=== PATIENT | female | born 1965 | race Caucasian/White ===

== ENCOUNTER 2016-07-27 11:33 | Emergency (ER) | payer OTHER ==
--- NOTE | 2016-07-27 13:58 | UC ---
HPI Febrile Illness - HPI Summary HPI Summary: Patient presents to the with CC of fevers, sweats and chills x 1 week. She is a diabetic and is refusing to use her insulin. She states 2 days ago she started using it again, but has not improved with sweats and chills. She is morbidly obese, has significant comorbidities and does not have close follow up outpatient d/t non-compliance. She states her toe had been bothering her, but she is unable to look. She has not taken her sock off in "quite some time." She notes to pain and feeling of swelling, but endorses numbness in the toe. Denies urinary symptoms, back pain or other abdominal complaints. Febrile at 100.0 on arrival. Tachy at 103, upon re-check was 98. - History of Current Complaint Chief Complaint: UCGeneralIllness Time Seen by Provider: 07/27/16 13:24 Hx Obtained From: Patient Onset/Duration: Started Weeks Ago Timing: Constant Temperature: 100.0 F Initial Severity: Moderate Current Severity: Moderate Pain Intensity: 4 Pain Scale Used: 0-10 Numeric Aggravating Factors: Nothing Alleviating Factors: Nothing Associated Signs and Symptoms: Arthralgia, Diaphoresis, Dizziness, Joint Pain, Night Sweats, Red Streaks, Weakness - Risk Factors Pseudomonas Risk Factors: Negative Serious Bacterial Infection Risk Factors: Negative - Additional Pertinent History Primary Care Physician: [id number] - Allergy/Home Medications Allergies/Adverse Reactions: Allergies Allergy/AdvReac Type Severity Reaction Status Date / Time No Known Allergies Allergy Verified 07/27/16 11:51 PMH/Surg Hx/FS Hx/Imm Hx Previously Healthy: Yes Endocrine/Hematology History: Reports: Hx Diabetes, Hx Anemia - current acute anemia Denies: Hx Thyroid Disease Cardiovascular History: Denies: Hx Hypertension, Hx Pacemaker/ICD Respiratory History: Denies: Hx Asthma, Hx Chronic Obstructive Pulmonary Disease (COPD) GI History: Reports: Hx Hiatal Hernia - PT HAS HAD SBO IN THE PAST, Hx Obstructive Bowel, Other GI Disorders - Gall bladder removal, hernia repair Denies: Hx Cirrhosis, Hx Crohn's Disease, Hx Gastroesophageal Reflux Disease , Hx Ulcer History: Denies: Hx Dialysis, Hx Renal Disease Musculoskeletal History: Reports: Hx Back Problems Denies: Hx Arthritis, Hx Osteoporosis Sensory History: Reports: Hx Contacts or Glasses - glasses Denies: Hx Cataracts, Hx Glaucoma, Hx Hearing Aid Opthamlomology History: Reports: Hx Contacts or Glasses - glasses Denies: Hx Cataracts, Hx Glaucoma Neurological History: Comment Only: Other Neuro Impairments/Disorders - occassional tingling to bottom of feet Psychiatric History: Denies: Hx Panic Disorder - Surgical History Surgery Procedure, Year, and Place: Gall bladder 1996, [facility] [place]. Hernia repair ~2008 , [facility] [place] Right rotator cuff repair 2010, [facility] [place]. Fibroid removal, 2012, [facility] [place]. MAR 2014 HYSTERECTOMY Hx Anesthesia Reactions: No - Immunization History Hx Pertussis Vaccination: No Immunizations Up to Date: Unable to Obtain/Confirm Infectious Disease History: No Infectious Disease History: Denies: Hx Clostridium Difficile, Hx Hepatitis, Hx Human Immunodeficiency Virus (HIV), Hx of Known/Suspected MRSA, Hx Shingles, Hx Tuberculosis, Traveled Outside the [place] in Last 30 Days - Family History Known Family History: Positive: Unknown - Social History Occupation: Unemployed Lives: With Family Alcohol Use: Rare Hx Substance Use: No Substance Use Type: Reports: None Substance Use Comment - Amount & Last Used: 3 pepsi a day Hx Tobacco Use: No Smoking Status (MU): Light Every Day Tobacco Smoker Type: Cigarettes Amount Used/How Often: 2-3 CIGARETTES/DAY Length of Time of Smoking/Using Tobacco: SMOKED 30+ YEARS; Have You Smoked in the Last Year: Yes Review of Systems Constitutional: Fever, Chills, Fatigue Skin: Other - necrosing great toe ENT: Negative Respiratory: Negative Cardiovascular: Negative Musculoskeletal: Arthralgia - right great toe pain Neurological: Negative Psychological: Negative All Other Systems Reviewed And Are Negative: Yes Physical Exam Triage Information Reviewed: Yes Appearance: Ill-Appearing, Obese Vital Signs: Initial Vital Signs Temp 99.9 F 07/27/16 11:44 Pulse 98 07/27/16 11:44 Resp 18 07/27/16 11:44 BP 119/63 07/27/16 11:44 Pulse Ox 94 07/27/16 11:44 Vital Signs Reviewed: Yes Eye Exam: Normal Eyes: Positive: Conjunctiva Clear Neck exam: Normal Neck: Positive: Supple Respiratory: Positive: Chest non-tender, Lungs clear, Normal breath sounds Cardiovascular Exam: Normal Neurological: Positive: Fatigued, Abnormal Muscle Tone Psychological: Positive: Normal Response To Family Skin: Positive: Other - necrosing toe Course/Dx - Course Course Of Treatment: Patient evaluated for possible sepsis. Febrile with sweats and chills, tachy at 103 on arrival. Necorsing great toe. BG at 393. Refusing to take her insulin at home. Morbidly obese with significant comorbidities. Called. Ebonie Silva PA-C at 1:50p for report. Will send for further evaluation of toe, possible sepsis and glucose/diabetes control. Possible washout for toe d/t necrosis with erythema. - Febrile Illness Differential Diagnoses: Abscess, Cellulitis, Fever of Unknown Origin, Sepsis - Diagnoses Clinic Provider Diagnoses: Fever Discharge - Discharge Plan Condition: Stable Disposition: TRANS HIGHER LVL OF CARE FAC
[2016-07-27 14:06] VITALS: BP 106/60
== END 2016-07-27 14:29 | disposition short-term general hospital (02) ==
LOC: UCEAST 11:33
DX: R50.9 Fever, unspecified (principal); R00.0 Tachycardia, unspecified; I96 Gangrene, not elsewhere classified; E11.65 Type 2 diabetes mellitus with hyperglycemia; Z91.14 Patient's other noncompliance with medication regimen; F17.210 Nicotine dependence, cigarettes, uncomplicated; E66.01 Morbid (severe) obesity due to excess calories
CPT/HCPCS: 99213; G0463

== ENCOUNTER 2016-07-27 14:44 | Inpatient (IN) | payer OTHER ==
[2016-07-27] MEDS ORDERED: Vancomycin(*) 1,000 MG in NS 0.9% 250 ML* 250 ML IVPB ONE ×2 (15:21→18:30)
[2016-07-27] MEDS ORDERED: NS 0.9% 1000 ML* 1,000 ML IV ONE (15:21)
[2016-07-27 15:49] LABS: Hematocrit 39 % (35-47); Hemoglobin 12.4 g/dl (12.0-16.0); Mean Corpuscular HGB Conc 32 g/dl (31-36); Mean Corpuscular Hemoglobin 26 pg (27-31); Mean Corpuscular Volume 80 fL (80-97); Mean Platelet Volume 10 um3 (7.4-10.4); Red Blood Count 4.84 10^6/ul (4.0-5.4); Red Cell Distribution Width 14 % (10.5-15); White Blood Count 16.1 10^3/ul (3.5-10.8)
--- NOTE | 2016-07-27 16:03 | RAD ---
HISTORY: Foot infection, fever, weakness COMPARISONS: April 10, 2015 VIEWS:1: Single frontal portable view of the chest at 3:50 PM FINDINGS: LINES AND TUBES: None. CARDIOMEDIASTINAL SILHOUETTE: The cardiomediastinal silhouette is normal for portable technique. PLEURA: The costophrenic angles are sharp. No pleural abnormalities are noted. LUNG PARENCHYMA: The lung volumes are low. The lungs are clear accounting for the phase of respiration. ABDOMEN: The upper abdomen is clear. There is no subphrenic gas. BONES AND SOFT TISSUES: No bone or soft tissue abnormalities are noted. IMPRESSION: LOW LUNG VOLUMES. NO ACTIVE CARDIOPULMONARY DISEASE.
[2016-07-27 16:04] LABS: Add Diff/Slide Review? Manual Diff Added; Comments Flag Yes
--- NOTE | 2016-07-27 16:05 | RAD ---
HISTORY: Right foot infection, rule out osteomyelitis COMPARISONS: None available at dictation VIEWS: 2, Frontal and lateral views of the right foot FINDINGS: BONE DENSITY: Normal. BONES: There is a nondisplaced fracture of the head of the proximal phalanx of the first digit. There are erosive changes of the tuft of the distal talus of the first digit. 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 ALIGNMENT: There is no dislocation. SOFT TISSUES: There is soft tissue defect of the first digit with extensive subcutaneous emphysema of the forefoot OTHER FINDINGS: None. IMPRESSION: 1. SOFT TISSUE DEFECT WITH SUBCUTANEOUS EMPHYSEMA OF THE FOREFOOT. 2. THERE IS A NONDISPLACED FRACTURE OF THE PROXIMAL PHALANX OF THE FIRST DIGIT WITH EROSIVE CHANGES OF THE TUFT OF THE DISTAL PHALANX, SUGGESTIVE OF OSTEOMYELITIS GIVEN THE CLINICAL HISTORY
[2016-07-27 16:10] LABS: Troponin I 0.09 ng/mL (<0.04)
[2016-07-27 16:33] LABS: Add Path Review? YES; Eosinophils % 1 % (0-6); Immature Granulocytes 5 % (0-9); Neutrophil % 81 % (38-83)
[2016-07-27 16:34] LABS: RBC Morphology Normal (Normal)
[2016-07-27 17:01] LABS: Albumin 2.6 g/dL (3.2-5.2); BUN/Creatinine Ratio 27.8 (8-20); C Reactive Protein 220.53 mg/L (< 5.00); Calcium 8.7 mg/dL (8.6-10.3); EGFR African American 110.3 (>60); EGFR Non-African American 85.7 (>60); Globulin 4.6 g/dL (2-4); Total Bilirubin 0.7 mg/dL (0.2-1.0); Total Protein 7.2 g/dL (6.4-8.9)
[2016-07-27] MEDS ORDERED: Insulin REGULAR(*) 1 UNITS UNIT SUBCUT ONE (17:30)
[2016-07-27] MEDS ORDERED: Dextrose 50% Syringe 50 ML* 25 GM/50 ML SYRINGE IV PUSH PRN (17:37)
[2016-07-27] MEDS ORDERED: Zosyn per Pharmacy* NOTE FOLLOW UP SCH (18:00)
[2016-07-27] MEDS ORDERED: Vancomycin per Pharmacy* NOTE FOLLOW UP SCH (18:00)
--- NOTE | 2016-07-27 18:55 | ED ---
Amarilis Herzog Thomas, scribed for Filippo Bear MD on 07/27/16 at 1519 . HPI Febrile Illness - HPI Summary HPI Summary: Pt is a 50 y/o F who presents to ED c/o febrile illness. Pt reports intermittent episodes of fever and chills for the last week. Sx aggravated and alleviated by nothing. Additionally c/o swelling, malodor and a black color to the R toes and one episode of vomiting yesterday. Denies CP, SOB, palpitations, diarrhea, constipation. Is not in any pain, ranked pain scale as 0/10. 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 PMHx DM. - History of Current Complaint Chief Complaint: EDFever Time Seen by Provider: 07/27/16 15:09 Hx Obtained From: Patient Onset/Duration: Started Weeks Ago - 1 week ago, Still Present Timing: Intermittent Current Severity: None Pain Intensity: 0 Pain Scale Used: 0-10 Numeric Aggravating Factors: Nothing Alleviating Factors: Nothing Associated Signs and Symptoms: Vomiting - one episode, yesterday, Other: - Malodorous, swollen and black R toes. - Additional Pertinent History Primary Care Physician: [id number] - Allergy/Home Medications Allergies/Adverse Reactions: Allergies Allergy/AdvReac Type Severity Reaction Status Date / Time No Known Allergies Allergy Verified 07/27/16 11:51 Home Medications: Home Medications Insulin Glargine [Lantus Solostar] 35 units SUBCUT QPM 07/27/16 [History Confirmed 07/27/16] PMH/Surg Hx/FS Hx/Imm Hx Endocrine/Hematology History: Reports: Hx Diabetes, Hx Anemia - current acute anemia Denies: Hx Thyroid Disease Cardiovascular History: Denies: Hx Hypertension, Hx Pacemaker/ICD Respiratory History: Denies: Hx Asthma, Hx Chronic Obstructive Pulmonary Disease (COPD) GI History: Reports: Hx Hiatal Hernia - PT HAS HAD SBO IN THE PAST, Hx Obstructive Bowel, Other GI Disorders - Gall bladder removal, hernia repair Denies: Hx Cirrhosis, Hx Crohn's Disease, Hx Gastroesophageal Reflux Disease , Hx Ulcer History: Denies: Hx Dialysis, Hx Renal Disease Musculoskeletal History: Reports: Hx Back Problems Denies: Hx Arthritis, Hx Osteoporosis Sensory History: Reports: Hx Contacts or Glasses - glasses Denies: Hx Cataracts, Hx Glaucoma, Hx Hearing Aid Opthamlomology History: Reports: Hx Contacts or Glasses - glasses Denies: Hx Cataracts, Hx Glaucoma Neurological History: Comment Only: Other Neuro Impairments/Disorders - occassional tingling to bottom of feet Psychiatric History: Denies: Hx Panic Disorder - Surgical History Surgery Procedure, Year, and Place: Gall bladder 1996, [facility] [place]. Hernia repair ~2008 , [facility] [place]. Right rotator cuff repair 2010, [facility] [place]. Fibroid removal, 2012, [facility] [place]. MAR 2014 HYSTERECTOMY Hx Anesthesia Reactions: No Infectious Disease History: No Infectious Disease History: Denies: Hx Clostridium Difficile, Hx Hepatitis, Hx Human Immunodeficiency Virus (HIV), Hx of Known/Suspected MRSA, Hx Shingles, Hx Tuberculosis, Traveled Outside the [place] in Last 30 Days - Family History Known Family History: Positive: Cardiac Disease, Hypertension, Diabetes - Social History Alcohol Use: Rare Hx Substance Use: No Substance Use Type: Reports: None Substance Use Comment - Amount & Last Used: 3 pepsi a day Hx Tobacco Use: No Smoking Status (MU): Light Every Day Tobacco Smoker Type: Cigarettes Amount Used/How Often: 2-3 CIGARETTES/DAY Length of Time of Smoking/Using Tobacco: SMOKED 30+ YEARS; Have You Smoked in the Last Year: Yes Review of Systems Positive: Fever, Chills Negative: Palpitations, Chest Pain Negative: Shortness Of Breath Positive: Vomiting - 1 episode, yesterday, Other - Denies constipation. Negative: Diarrhea Positive: Other - Malodours, black and swollen R toes All Other Systems Reviewed And Are Negative: Yes Physical Exam - Summary Physical Exam Summary: VITAL SIGNS: Reviewed. GENERAL: Patient is an obese female who is lying comfortable in the stretcher. Patient is not in any acute respiratory distress. HEAD AND FACE: No signs of trauma. No ecchymosis, hematomas or skull depressions. No sinus tenderness. EYES: PERRLA, EOMI x 2, No injected conjunctiva, no nystagmus. EARS: Hearing grossly intact. Ear canals and tympanic membranes are within normal limits. MOUTH: Oropharynx within normal limits. NECK: Supple, trachea is midline, no adenopathy, no JVD, no carotid bruit, no c- spine tenderness, neck with full ROM. CHEST: Symmetric, no tenderness at palpation LUNGS: Clear to auscultation bilaterally. No wheezing or crackles. CVS: Regular rate and rhythm, S1 and S2 present, no murmurs or gallops appreciated. ABDOMEN: Soft, non-tender. No signs of distention. No rebound no guarding, and no masses palpated. Bowel sounds are normal. EXTREMITIES: FROM in all major joints, no edema, no cyanosis or clubbing. Right 1st and 2nd digits have dry gangrene, foul smelling odor and some discharge. Good pedal pulses. NEURO: Alert and oriented x 3. No acute neurological deficits. Speech is normal and follows commands. SKIN: Dry and warm Triage Information Reviewed: Yes Vital Signs On Initial Exam: Initial Vitals Temp Pulse Resp BP Pulse Ox 98.2 F 94 16 94/79 92 07/27/16 14:52 07/27/16 14:52 07/27/16 14:52 07/27/16 14:52 07/27/16 14:52 Vital Signs Reviewed: Yes - Sona Coma Scale Coma Scale Total: 15 Diagnostics - Vital Signs Vital Signs Temp Pulse Resp BP Pulse Ox 07/27/16 14:52 98.2 F 94 16 94/79 92 - Laboratory Lab Results: Lab Results 07/27/16 07/27/16 07/27/16 Range/Units 15:35 15:35 15:35 WBC 16.1 H (3.5-10.8) 10^3/ul RBC 4.84 (4.0-5.4) 10^6/ul Hgb 12.4 (12.0-16.0) g/dl Hct 39 (35-47) % MCV 80 (80-97) fL MCH 26 L (27-31) pg MCHC 32 (31-36) g/dl RDW 14 (10.5-15) % Plt Count 244 (150-450) 10^3/ul MPV 10 (7.4-10.4) um3 Immature Gran % (Auto) 5 (0-9) % Absolute Neuts (auto) 13.7 H (1.5-7.7) 10^3/ul Absolute Lymphs (auto) 1.0 (1.0-4.8) 10^3/ul Absolute Monos (auto) 1.3 H (0-0.8) 10^3/ul Absolute Eos (auto) 0 (0-0.6) 10^3/ul Absolute Basos (auto) 0.1 (0-0.2) 10^3/ul Absolute Nucleated RBC 0.01 10^3/ul Neutrophils % 81 (38-83) % Band Neutrophils % 5 (0-8) % Lymphocytes % 5 L (25-47) % Monocytes % 8 (0-13) % Eosinophils % 1 (0-6) % Normal RBC Morphology Normal (Normal) Hem Pathologist Commnt Pending INR (Anticoag Therapy) 1.03 (0.89-1.11) APTT 17.6 L (26.0-36.3) seconds Sodium 126 L (133-145) mmol/L Potassium 4.0 (3.5-5.0) mmol/L Chloride 92 L (101-111) mmol/L Carbon Dioxide 26 (22-32) mmol/L Anion Gap 8 (2-11) mmol/L BUN 20 (6-24) mg/dL Creatinine 0.72 (0.51-0.95) mg/dL Est GFR ( Amer) 110.3 (>60) Est GFR (Non-Af Amer) 85.7 (>60) BUN/Creatinine Ratio 27.8 H (8-20) Glucose 353 H (70-100) mg/dL Lactic Acid (0.5-2.0) mmol/L Calcium 8.7 (8.6-10.3) mg/dL Total Bilirubin 0.70 (0.2-1.0) mg/dL AST 56 H (13-39) U/L ALT 60 H (7-52) U/L Alkaline Phosphatase 120 H (34-104) U/L Total Creatine Kinase 46 (10-223) U/L Troponin I 0.09 H* (<0.04) ng/mL C-Reactive Protein 220.53 H (< 5.00) mg/L Total Protein 7.2 (6.4-8.9) g/dL Albumin 2.6 L (3.2-5.2) g/dL Globulin 4.6 H (2-4) g/dL Albumin/Globulin Ratio 0.6 L (1-3) // Range/Units 15:51 WBC (3.5-10.8) 10^3/ul RBC (4.0-5.4) 10^6/ul Hgb (12.0-16.0) g/dl Hct (35-47) % MCV (80-97) fL MCH (27-31) pg MCHC (31-36) g/dl RDW (10.5-15) % Plt Count (150-450) 10^3/ul MPV (7.4-10.4) um3 Immature Gran % (Auto) (0-9) % Absolute Neuts (auto) (1.5-7.7) 10^3/ul Absolute Lymphs (auto) (1.0-4.8) 10^3/ul Absolute Monos (auto) (0-0.8) 10^3/ul Absolute Eos (auto) (0-0.6) 10^3/ul Absolute Basos (auto) (0-0.2) 10^3/ul Absolute Nucleated RBC 10^3/ul Neutrophils % (38-83) % Band Neutrophils % (0-8) % Lymphocytes % (25-47) % Monocytes % (0-13) % Eosinophils % (0-6) % Normal RBC Morphology (Normal) Hem Pathologist Commnt INR (Anticoag Therapy) (0.89-1.11) APTT (26.0-36.3) seconds Sodium (133-145) mmol/L Potassium (3.5-5.0) mmol/L Chloride (101-111) mmol/L Carbon Dioxide (22-32) mmol/L Anion Gap (2-11) mmol/L BUN (6-24) mg/dL Creatinine (0.51-0.95) mg/dL Est GFR ( Amer) (>60) Est GFR (Non-Af Amer) (>60) BUN/Creatinine Ratio (8-20) Glucose (70-100) mg/dL Lactic Acid 1.1 (0.5-2.0) mmol/L Calcium (8.6-10.3) mg/dL Total Bilirubin (0.2-1.0) mg/dL AST (13-39) U/L ALT (7-52) U/L Alkaline Phosphatase (34-104) U/L Total Creatine Kinase (10-223) U/L Troponin I (<0.04) ng/mL C-Reactive Protein (< 5.00) mg/L Total Protein (6.4-8.9) g/dL Albumin (3.2-5.2) g/dL Globulin (2-4) g/dL Albumin/Globulin Ratio (1-3) Result Diagrams: 07/27/16 15:35 07/27/16 15:35 Lab Statement: Any lab studies that have been ordered have been reviewed, and results considered in the medical decision making process. - Radiology CXR Xray Interpretation: No Acute Changes - LOW LUNG VOLUMES. NO ACTIVE CARDIOPULMONARY DISEASE. Radiology Interpretation Completed By: Radiologist Foot XR Xray Interpretation: Positive (See Comments) - 1. SOFT TISSUE DEFECT WITH SUBCUTANEOUS EMPHYSEMA OF THE FOREFOOT. 2. THERE IS A NONDISPLACED FRACTURE OF THE PROXIMAL PHALANX OF THE FIRST DIGIT WITH EROSIVE CHANGES OF THE TUFT OF THE DISTAL PHALANX, SUGGESTIVE OF OSTEOMYELITIS GIVEN THE CLINICAL HISTORY Radiology Interpretation Completed By: Radiologist Course/Dx - Course Assessment/Plan: Pt is a 50 y/o F who presents to ED c/o febrile illness. Pt reports intermittent episodes of fever and chills for the last week. Sx aggravated and alleviated by nothing. Additionally c/o swelling, malodor and a black color to the R toes and one episode of vomiting yesterday. Denies CP, SOB , palpitations, diarrhea, constipation. Is not in any pain, ranked pain scale as 0/10. 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 PMHx DM. Test results show leukocytes of 16.1, hyponatremia of 126, glucose 353, CRP of 220, and the patient has hypoadrenia. XR of the chest reveals: "LOW LUNG VOLUMES. NO ACTIVE CARDIOPULMONARY DISEASE" and XR of the foot reveals: "1. SOFT TISSUE DEFECT WITH SUBCUTANEOUS EMPHYSEMA OF THE FOREFOOT. 2. THERE IS A NONDISPLACED FRACTURE OF THE PROXIMAL PHALANX OF THE FIRST DIGIT WITH EROSIVE CHANGES OF THE TUFT OF THE DISTAL PHALANX, SUGGESTIVE OF OSTEOMYELITIS GIVEN THE CLINICAL HISTORY." In the ED course, patient was started on vancomycin as it seems patient has osteomyelitis. At this time, I disclosed the case with Dr. Gonzalez who will admit patient to services for further assessment and workup. Discussed care of patient with Dr. Duarte, who will consult patient in the ED. Patient is hemodynamically stable, AxOx3. - Febrile Illness Differential Diagnoses: Abscess, Cellulitis - Diagnoses Provider Diagnoses: Osteomyelitis, Increased troponin r/o ACS - Provider Notifications Discussed Care Of Patient With: Galen Gonzalez Time Discussed With Above Provider: 16:15 Instructed by Provider To: Other - Accepts patient for admission. Discussed care of patient with Dr. Duarte, who will consult patient in the ED. Discharge - Discharge Plan Condition: Stable Disposition: ADMITTED TO [facility] documentation as recorded by the Amarilis vogt Thomas accurately reflects the service I personally performed and the decisions made by me, Filippo Bear MD.
[2016-07-27] MEDS: Insulin LISPRO* 1 UNITS UNIT SUBCUT SCH (20:27)
[2016-07-27] MEDS: Insulin GLARGINE(*) 1 UNITS UNIT SUBCUT SCH (20:34)
[2016-07-27] MEDS: Heparin VIAL(*) 5000 UNITS/ML VIAL (FIVE THOUSAND) SUBCUT SCH (20:34)
[2016-07-27] MEDS: NS 0.9% 1000 ML* 1,000 ML IV SCH (20:34)
--- NOTE | 2016-07-27 20:54 | HP ---
CC: Dr. Beyer* HISTORY AND PHYSICAL: DATE OF ADMISSION: 07/27/16 PRIMARY CARE PHYSICIAN: Dr. Beyer. CHIEF COMPLAINT: Right great toe bleeding. HISTORY OF PRESENT ILLNESS: Ms. Mansfield is a 50-year-old female with a past medical history of obesity, diabetes, who presents to the hospital with 4 to 5 days of fever, chills, and bleeding from her toe. The patient states she first noticed her symptoms about 4 days ago. 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 She got home and took her sock off and noticed that her toe was very bloody. The rest of that evening, she reported feeling sweats and chills. Throughout the night, she soaked her foot in epsom salt hoping that it would help things. Over the following day, she felt that toe got worse. She continued to have intermittent bleeding and fevers throughout the weekend. She states that her took the temperature on Tuesday night and was reportedly 105. She felt lethargic and fatigued throughout the weekend. Yesterday morning, it seems that the fever broke; however, the patient did not feel well. She states that she went to work today and her boss insisted that she come to the hospital because she looks so poor. She denies any pain in the toe, but admits that she occasionally has some numbness especially on the bottom of the feet. She reports she has some nausea and vomiting on Tuesday. No hematemesis. Denies any chest pain. Has had ongoing dry cough. No shortness of breath, abdominal pain, diarrhea, constipation, or dysuria. The patient initially went to the urgent care today and was sent here due to the fact that it appeared her toe was necrotic. Please note, the patient has been noncompliant with her insulin. She decided to just stop taking it at some point because she did not like to give herself shots and her did not want to do either. She took insulin for the past 2 days, but prior to that it has been almost a year. PAST MEDICAL HISTORY: Obesity, hypertension, diabetes. PAST SURGICAL HISTORY: Cholecystectomy, hernia repair, rotator cuff surgery, fibroid hysterectomy. HOME MEDICATIONS: Lantus 35 units nightly. ALLERGIES: She has no known drug allergies. FAMILY HISTORY: Significant for mother with diabetes and CAD. Father with hypertension. SOCIAL HISTORY: The patient has been smoking for almost 40 years, used to smoke a pack a day, although less now. She states very rare alcohol use. Denies any illicit drug use. REVIEW OF SYSTEMS: A 12-point review of systems was negative except for that as noted in the HPI. PHYSICAL EXAMINATION GENERAL: The patient is a middle-aged obese, female, lying in bed, in no apparent distress. VITAL SIGNS: On admission, temperature 98.2; heart rate 94; respiratory rate 16 ; O2 saturation 90% on room air; blood pressure 94/79, subsequently 126/66. HEENT: Head: Normocephalic, atraumatic. Eyes: Pupils are equal, round, and reactive to light and accommodation. Anicteric sclerae. ENT: Moist mucous membranes. No cervical adenopathy. LUNGS: Clear to auscultation bilaterally. No wheezes, rales, or rhonchi. CARDIOVASCULAR: Regular rate and rhythm. S1 and S2 present. No murmurs, gallops, or rubs. ABDOMEN: Soft, obese, nontender, nondistended. Bowel sounds positive. EXTREMITIES: The patient has some mild chronic skin changes in the distal legs and significant overgrown toenails. Her right toe is edematous and erythematous with a large necrotic area on the bottom of the toe with purulent bloody discharge that is very malodorous. Does not seem there is involvement of any other toes. NEURO: The patient is alert and oriented x3. No focal neurological deficits. SKIN: Warm, dry, and well perfused. DIAGNOSTIC STUDIES/LAB DATA: White blood cell count of 16.1, hemoglobin 12.4, hematocrit of 39, platelets are 244, 5% bands. INR of 1.03. Sodium of 126, potassium of 4.0, chloride of 92, carbon dioxide of 26, BUN of 20, creatinine of 0.72, glucose of 353, lactic acid 1.1. AST 56, ALT 60, alk phos of 120. Troponin of 0.09. CRP of 220.53. Chest x-ray personally reviewed shows no acute disease. X-ray of right foot shows soft tissue defect with subcutaneous emphysema of the forefoot and nondisplaced fracture of the proximal phalanx of the first digit with erosive changes in the tuft of the distal phalanx suggestive of osteomyelitis given the clinical history. ASSESSMENT AND PLAN: Right diabetic foot infection with osteomyelitis in a 50- year- old female with past medical history of obesity and diabetes, medical noncompliance. 1. Diabetic foot infection and osteomyelitis. The patient was given a dose of vancomycin in the emergency department. We will continue the patient on Zosyn and vancomycin for now. The patient seems hemodynamically stable at the moment. She received 1 L of IV fluids in the ED and we will continue 100 cc per hour. Orthopedics was consulted to evaluate the patient as she may need amputation. 2. Troponin elevation, likely demand mediated due to her infection. The patient is not reporting any chest pain; however, with her diabetes, this would not necessarily be unusual for acute coronary syndrome. We will trend the patient's troponins for now and monitor on telemetry. If they remain negative, she will likely do not need any further telemetry tomorrow and could potentially be moved to the surgical floor. 3. Diabetes. Blood glucose is elevated at 353 presently. Give the patient 10 units of regular insulin now, start her on a sliding scale and resume her home Lantus 35 units nightly. She is not showing any signs of diabetic ketoacidosis on her lab. We will check hemoglobin A1c. 4. Hyponatremia. Sodium is 126, likely due to sepsis and volume depletion. IV fluids as above. We will recheck in the morning. 5. Code status. The patient is full code. 6. DVT prophylaxis. Heparin subcu. TIME SPENT: Total time spent on this admission 45 minutes with over half the time spent [id number] with the patient in counseling and coordinating care. [id number]/[facility] #: [id number] CHET
[2016-07-28] MEDS: Vancomycin(*) 1,500 MG in NS 0.9% 250 ML* 250 ML IVPB SCH ×2 (03:08→16:21)
[2016-07-28 04:47] LABS: Hematocrit 35 % (35-47); Hemoglobin 11.3 g/dl (12.0-16.0); Mean Corpuscular HGB Conc 33 g/dl (31-36); Mean Corpuscular Hemoglobin 26 pg (27-31); Mean Corpuscular Volume 79 fL (80-97); Mean Platelet Volume 9 um3 (7.4-10.4); Red Blood Count 4.36 10^6/ul (4.0-5.4); Red Cell Distribution Width 14 % (10.5-15); White Blood Count 13.5 10^3/ul (3.5-10.8)
[2016-07-28 04:48] LABS: Add Diff/Slide Review? Manual Diff Added; Comments Flag Yes
[2016-07-28] MEDS: Heparin VIAL(*) 5000 UNITS/ML VIAL (FIVE THOUSAND) SUBCUT SCH ×3 (05:00→22:36)
[2016-07-28 05:09] LABS: Albumin 2.3 g/dL (3.2-5.2); BUN/Creatinine Ratio 20.9 (8-20); Calcium 8.1 mg/dL (8.6-10.3); EGFR African American 119.8 (>60); EGFR Non-African American 93.2 (>60); Potassium 3.1 mmol/L (3.5-5.0); Total Bilirubin 0.7 mg/dL (0.2-1.0); Total Protein 6.3 g/dL (6.4-8.9)
--- NOTE | 2016-07-28 08:52 | PN ---
Subjective Date of Service: 07/28/16 Interval History: Patient seen this morning. No new complaints other than continued bleeding from toe when she ambulates. No pain. Eating breakfast, has been urinating. Family History: Unchanged from Admission Social History: Unchanged from Admission Past Medical History: Unchanged from Admission Objective Active Medications: Dextrose (D50w Syringe 50 Ml*) 12.5 gm IV PUSH .FOR FS < 60 - SS PRN Heparin Sodium (Porcine) (Heparin Vial(*)) 5,000 units SUBCUT Q8HR RICKI Sodium Chloride (Ns 0.9% 1000 Ml*) 1,000 mls @ 100 mls/hr IV PER RATE RICKI Piperacillin Sod/Tazobactam (Sod 3.375 gm/ Sodium Chloride) 100 mls @ 25 mls/ hr IVPB Q8H RICKI Vancomycin HCl 1,500 mg/ (Sodium Chloride) 250 mls @ 166.667 mls/hr IVPB Q8H [facility] Insulin Glargine (Lantus(*)) 35 units SUBCUT QPM [facility] Insulin Human Lispro (Humalog*) 0 - 15 units SUBCUT AC [facility] Pharmacy Consult (Zosyn Per Pharmacy*) 1 note FOLLOW UP .ZOSYN PER PHARMACY [facility] Pharmacy Consult (Vancomycin Per Pharmacy*) 1 note FOLLOW UP .VANC PER PHARMACY [facility] Pharmacy Profile Note (Vancomycin Trough Check) 1 note FOLLOW UP 0330 ONE Potassium Chloride (Klor Con Er Tab*) 40 meq PO Q2H [facility] Vital Signs 07/27/16 07/27/16 07/27/16 17:42 18:00 18:09 Temperature Pulse Rate 89 87 Respiratory 28 Rate Blood Pressure 131/99 (mmHg) O2 Sat by Pulse 89 90 Oximetry 07/28/16 07/28/16 07:37 07:56 Temperature 99.2 F Pulse Rate 82 Respiratory 22 20 Rate Blood Pressure 151/58 (mmHg) O2 Sat by Pulse 93 93 Oximetry Oxygen Devices in Use Now: None Appearance: Middle-aged, obese, F, sitting in chair in NAD Eyes: No Scleral Icterus Ears/Nose/Mouth/Throat: Mucous Membranes Moist Neck: NL Appearance and Movements; NL JVP Respiratory: Symmetrical Chest Expansion and Respiratory Effort, Clear to Auscultation Cardiovascular: NL Sounds; No Murmurs; No JVD, RRR Abdominal: - - Obese, soft, NTND, BS+ Lymphatic: No Cervical Adenopathy Extremities: - - Mild B/L LE edema, chronic LE skin changes, did not assess R great toe Neurological: Alert and Oriented x 3 Result Diagrams: 07/28/16 04:18 07/28/16 04:18 Additional Lab and Data: Lab Results 07/27/16 07/27/16 07/27/16 Range/Units 15:35 15:35 15:35 WBC 16.1 H (3.5-10.8) 10^3/ul RBC 4.84 (4.0-5.4) 10^6/ul Hgb 12.4 (12.0-16.0) g/dl Hct 39 (35-47) % MCV 80 (80-97) fL MCH 26 L (27-31) pg MCHC 32 (31-36) g/dl RDW 14 (10.5-15) % Plt Count 244 (150-450) 10^3/ul MPV 10 (7.4-10.4) um3 Immature Gran % (Auto) 5 (0-9) % Absolute Neuts (auto) 13.7 H (1.5-7.7) 10^3/ul Absolute Lymphs (auto) 1.0 (1.0-4.8) 10^3/ul Absolute Monos (auto) 1.3 H (0-0.8) 10^3/ul Absolute Eos (auto) 0 (0-0.6) 10^3/ul Absolute Basos (auto) 0.1 (0-0.2) 10^3/ul Absolute Nucleated RBC 0.01 10^3/ul Neutrophils % 81 (38-83) % Band Neutrophils % 5 (0-8) % Lymphocytes % 5 L (25-47) % Monocytes % 8 (0-13) % Eosinophils % 1 (0-6) % Normal RBC Morphology Normal (Normal) Hem Pathologist Commnt Pending INR (Anticoag Therapy) 1.03 (0.89-1.11) APTT 17.6 L (26.0-36.3) seconds Sodium 126 L (133-145) mmol/L Potassium 4.0 (3.5-5.0) mmol/L Chloride 92 L (101-111) mmol/L Carbon Dioxide 26 (22-32) mmol/L Anion Gap 8 (2-11) mmol/L BUN 20 (6-24) mg/dL Creatinine 0.72 (0.51-0.95) mg/dL Est GFR ( Amer) 110.3 (>60) Est GFR (Non-Af Amer) 85.7 (>60) BUN/Creatinine Ratio 27.8 H (8-20) Glucose 353 H (70-100) mg/dL Lactic Acid (0.5-2.0) mmol/L Calcium 8.7 (8.6-10.3) mg/dL Total Bilirubin 0.70 (0.2-1.0) mg/dL AST 56 H (13-39) U/L ALT 60 H (7-52) U/L Alkaline Phosphatase 120 H (34-104) U/L Total Creatine Kinase 46 (10-223) U/L Troponin I 0.09 H* (<0.04) ng/mL C-Reactive Protein 220.53 H (< 5.00) mg/L Total Protein 7.2 (6.4-8.9) g/dL Albumin 2.6 L (3.2-5.2) g/dL Globulin 4.6 H (2-4) g/dL Albumin/Globulin Ratio 0.6 L (1-3) // Range/Units 15:51 WBC (3.5-10.8) 10^3/ul RBC (4.0-5.4) 10^6/ul Hgb (12.0-16.0) g/dl Hct (35-47) % MCV (80-97) fL MCH (27-31) pg MCHC (31-36) g/dl RDW (10.5-15) % Plt Count (150-450) 10^3/ul MPV (7.4-10.4) um3 Immature Gran % (Auto) (0-9) % Absolute Neuts (auto) (1.5-7.7) 10^3/ul Absolute Lymphs (auto) (1.0-4.8) 10^3/ul Absolute Monos (auto) (0-0.8) 10^3/ul Absolute Eos (auto) (0-0.6) 10^3/ul Absolute Basos (auto) (0-0.2) 10^3/ul Absolute Nucleated RBC 10^3/ul Neutrophils % (38-83) % Band Neutrophils % (0-8) % Lymphocytes % (25-47) % Monocytes % (0-13) % Eosinophils % (0-6) % Normal RBC Morphology (Normal) Hem Pathologist Commnt INR (Anticoag Therapy) (0.89-1.11) APTT (26.0-36.3) seconds Sodium (133-145) mmol/L Potassium (3.5-5.0) mmol/L Chloride (101-111) mmol/L Carbon Dioxide (22-32) mmol/L Anion Gap (2-11) mmol/L BUN (6-24) mg/dL Creatinine (0.51-0.95) mg/dL Est GFR ( Amer) (>60) Est GFR (Non-Af Amer) (>60) BUN/Creatinine Ratio (8-20) Glucose (70-100) mg/dL Lactic Acid 1.1 (0.5-2.0) mmol/L Calcium (8.6-10.3) mg/dL Total Bilirubin (0.2-1.0) mg/dL AST (13-39) U/L ALT (7-52) U/L Alkaline Phosphatase (34-104) U/L Total Creatine Kinase (10-223) U/L Troponin I (<0.04) ng/mL C-Reactive Protein (< 5.00) mg/L Total Protein (6.4-8.9) g/dL Albumin (3.2-5.2) g/dL Globulin (2-4) g/dL Albumin/Globulin Ratio (1-3) Assess/Plan/Problems-Billing Assessment: R diabetic foot infection, osteomyelitis, bacteremia in a 50 yo F with hx of uncontrolled DM, non-compliance - Patient Problems (1) Osteomyelitis Current Visit: Yes Comment: bacteremia, GPC in 3/4 BCx bottles. Continue Vanc/ Zosyn for now. Ortho to evalaute. Will ask ID to consult as well. Leukocytosis improving. HD stable, continue IVF. (2) Type 2 diabetes mellitus Current Visit: No Comment: HISS, will evaluate BGs over the course of the day. Continue Lantus 35 units qhs for now. HbA1c is 13.4% (3) DVT prophylaxis Current Visit: No Priority: High Comment: HSQ Status and Disposition: Inpatient for osteomyelitis, bacteremia, likely will need surgical intervention
[2016-07-28] MEDS: Insulin LISPRO* 1 UNITS UNIT SUBCUT SCH ×4 (09:08→18:29)
[2016-07-28] MEDS: Potassium Chlor TAB* 20 MEQ TAB.ER PO SCH ×2 (09:08→11:04)
[2016-07-28] MEDS ORDERED: GuaiFENesin DM* 5 ML UDC PO PRN (09:14)
[2016-07-28] MEDS: NS 0.9% 1000 ML* 1,000 ML IV SCH (11:19)
--- NOTE | 2016-07-28 11:27 | CONS ---
ORTHOPEDIC CONSULT NOTE: DATE OF CONSULT: 07/27/16 CHIEF COMPLAINT: Right big toe. HISTORY OF PRESENT ILLNESS: Ms. Mansfield is a 50-year-old female who I had last seen over 5 years ago. At that time, she had undergone a rotator cuff repair with the repair of avulsion of her lesser tuberosity. She had healed well from that. She has been having troubles now with her right foot. For the past 5 days or so, she reports that she had noted that there was some bleeding in the area of the toe, but she still needed to work and so, she has continued to be on her feet. With the bleeding that she had there, she also has been having fever, chills, and did not look well, so her booking manager had sent her to the hospital to be evaluated. She sounds to be in a bit of shock as she needed some fluid resuscitation and is being admitted to the hospitalist service. PREVIOUS MEDICAL HISTORY: Morbid obesity, hypertension, uncontrolled diabetes. PREVIOUS SURGICAL HISTORY: Cholecystectomy, hernia repair, rotator cuff repair , fibroid hysterectomy. MEDICATIONS ON ADMISSION: Lantus, which she had not been taking. MEDICATION ALLERGIES: No known drug allergies. FAMILY HISTORY: She reports a positive family history of heart disease and diabetes. SOCIAL HISTORY: She has a positive tobacco history and a rare EtOH history. PHYSICAL EXAM: General: Heavyset female, in no apparent distress, lying on the stretcher. Right Foot: Inspection of the foot finds blood all about the plantar aspect of the foot and there is an obvious black eschar on the plantar aspect of the hallux. With cleaning this up a little bit, it can be seen that just the hallux appears involved. With gentle debridement, she has a wet eschar on the entirety of the bottom of the hallux and there is some puffiness where it engages right where the nail bed would be. The nail itself is somewhat loose. With flexion and extension of the toes, the lesser toes move, but the hallux does not. From where the eschar is, it does appear that the FHL would be involved. She has a bit of diabetic neuropathy, so with the debridement, she really did not feel much as I worked around the foot. X-RAYS: Limited x-rays taken just previously are available for review, this includes an attempted AP view and a lateral view. It is hard to see with the tissue overlap, but it almost appears as if the distal phalanx does not have significant soft tissue coverage. ASSESSMENT: Right hallux inspection. PLAN: There is no bony reaction, so it does not appear that there is involvement, but there is distinct issues with coverage of the bone. I discussed with her she may end up needing an amputation and/or other surgical treatment for this. I will touch base with Dr. Lucero about this. [id number]/[facility] #: [id number] [facility]
[2016-07-28] MEDS ORDERED: Dextrose 50% Syringe 50 ML* 25 GM/50 ML SYRINGE IV PUSH PRN (13:39)
--- NOTE | 2016-07-28 16:07 | CONS ---
CONSULTATION REPORT: DATE OF CONSULT: 07/28/16 REQUESTING PHYSICIAN: Dr. Gonzalez. CONSULTING SERVICE: Infectious Disease. REASON FOR CONSULTATION: Sepsis and right great toe infection. IMPRESSION: 1. Sepsis present on admission. 2. Right great toe necrotizing soft tissue infection and gangrene as well as osteomyelitis of the distal phalanx and a fracture of the proximal phalanx 3. Morbid obesity. 4. Uncontrolled diabetes, off of her insulin for a year and hemoglobin A1c of 13. 5. Peripheral neuropathy due to diabetes. 6. Elevated C-reactive protein of 220. 7. Palpable pulse in the right foot. 8. Group C or G streptococcus in the blood, 4 of 4 bottles due to the toe infection. There is a risk of seeding the heart valve. RECOMMENDATION: 1. Agree with stopping vancomycin and continue with Zosyn as this is likely a polymicrobial process and Zosyn should also cover the strep that is growing. 2. Her toe is not salvageable, she has lost most of the distal third of the toe to necrosis already and I believe is going to need amputation of the great toe. 3. Transesophageal echocardiogram. 4. Ankle-brachial index. HISTORY OF PRESENT ILLNESS: This is a 50-year-old woman with uncontrolled diabetes and morbid obesity, admitted with right foot infection. She had been able to keep an eye on her toes until few days ago, she took her sock off and it was full of blood. She noticed a wound on it and distal end of her toe. She is on her feet a lot at work. She has had fevers and shaking chills at home for 4 to 5 days without any appetite. She started taking insulin again 2 days ago, she has abstained from insulin about a year before that. She has no pain elsewhere including no back pain or joint pain. She has no prosthetic material present. She had an x-ray here that showed subcutaneous emphysema of the forefoot, nondisplaced fracture of the proximal phalanx of the first digit, erosive change in the tuft of the distal phalanx. She had a fever to 38.3 degrees overnight. Her blood pressure was improved with IV fluids up to the 100s systolic. Her heart rate has come down from the 100s to the 90s. PAST MEDICAL HISTORY: 1. Morbid obesity. 2. Type 2 diabetes, untreated. 3. Hypertension. 4. Status post cholecystectomy. 5. Status post hernia repair. 6. Status post rotator cuff surgery. 7. Status post hysterectomy. MEDICATIONS: 1. Heparin subcutaneous injection. 2. Insulin glargine. 3. Zosyn 3.375 g every 8 hours by extended infusion. ALLERGIES: No known drug allergies. SOCIAL HISTORY: She lives in [place]. 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 No travel or sick contacts. FAMILY HISTORY: There is diabetes. There is no tuberculosis or recurrent infections. REVIEW OF SYSTEMS: All negative except as noted above to the full review of systems. PHYSICAL EXAM: Vital Signs: Temperature is 37.3, heart rate 80, respiratory rate 25, blood pressure 150/50, O2 sat 93% on room air. General: She is awake in no acute distress. Neurologic: She is oriented x3 and follows all commands. She has decreased sensation to light touch in both feet. HEENT: There is no conjunctival hemorrhage. Oropharynx without lesions. Neck: Supple without nuchal rigidity. Lymph nodes: There is no cervical, supraclavicular, inguinal, axillary, or epitrochlear lymphadenopathy. Heart: Regular rate and rhythm without murmurs, rubs or gallops. Lungs: Clear to auscultation bilaterally. Abdomen: Soft, nontender, nondistended. It is obese. Skin: There are no rashes or splinter hemorrhages. Musculoskeletal: There is no spine tenderness to palpation or joint synovitis. On the right forefoot, there is erythema. There is no crepitus or fluctuance. In the great toe, there is erythema. The tip of the toe is absent. There is a loose eschar of about 2 cm with underlying purulent drainage and extensive soft tissue destruction. DIAGNOSTIC STUDIES/LAB DATA: Creatinine is 0.6. CRP was 220. White blood cell count 13 down from 16, hemoglobin 11, platelets 187. Please see impressions and recommendations as outlined above which I have discussed with Dr. Gonzalez and I have asked Dr. Lucero to evaluate for amputation as well. Thank you for asking me to see Ms. Mansfield in consultation. [id number]/[facility] #: [id number] [facility]
[2016-07-28] MEDS: Insulin GLARGINE(*) 1 UNITS UNIT SUBCUT SCH (18:28)
--- NOTE | 2016-07-28 23:32 | RAD ---
Indication: RIGHT great toe infection for one week. Diabetic. Comparison: No relevant prior exams available on the [facility] PACS for comparison. Technique: Ankle and brachial blood pressure measurement. Calculated ankle-brachial indices. REPORT: The right ankle brachial index is 1.40 indicating noncompressible vessels. Preserved triphasic waveforms at the posterior tibial and dorsalis pedis arteries. Grossly unremarkable RIGHT ankle pulse volume recording. The left ankle brachial index could not be calculated due to noncompressible vessels. Preserved triphasic waveforms at the posterior tibial and dorsalis pedis arteries. Arterial flow documented at the LEFT great toe. Unremarkable LEFT ankle pulse volume recording. IMPRESSION: Reduced arterial compressibility limits utility of the ankle brachial index. Nonetheless preserved triphasic waveforms at the posterior tibial and dorsalis pedis arteries is evidence against hemodynamic significant inflow disease or large vessel intrinsic lower extremity stenoses.
[2016-07-29] MEDS ORDERED: Vancomycin Trough Check NOTE FOLLOW UP ONE (03:30)
[2016-07-29] MEDS: Heparin VIAL(*) 5000 UNITS/ML VIAL (FIVE THOUSAND) SUBCUT SCH ×3 (05:44→21:37)
[2016-07-29 07:08] LABS: Hematocrit 34 % (35-47); Hemoglobin 10.6 g/dl (12.0-16.0); Mean Corpuscular HGB Conc 32 g/dl (31-36); Mean Corpuscular Hemoglobin 25 pg (27-31); Mean Corpuscular Volume 80 fL (80-97); Mean Platelet Volume 9 um3 (7.4-10.4); Red Cell Distribution Width 15 % (10.5-15); White Blood Count 11.9 10^3/ul (3.5-10.8)
[2016-07-29 07:09] LABS: Add Diff/Slide Review? Slide Review Added; Comments Flag Yes
[2016-07-29 07:22] LABS: BUN/Creatinine Ratio 15.6 (8-20); EGFR African American 85.2 (>60); EGFR Non-African American 66.3 (>60); Potassium 3.6 mmol/L (3.5-5.0)
[2016-07-29] MEDS: Insulin LISPRO* 1 UNITS UNIT SUBCUT SCH ×6 (08:34→18:37)
[2016-07-29] MEDS: metroNIDAZOLE IV 500 MG/100ML* 500 MG/100 ML BAG IVPB SCH ×2 (12:15→18:36)
[2016-07-29] MEDS ORDERED: Insulin LISPRO* 1 UNITS UNIT SUBCUT ONE (12:26)
[2016-07-29] MEDS ORDERED: fentaNYL* 50 MCG/ML 2 ML VIAL (100 MCG VIAL) ONE (12:51)
[2016-07-29] MEDS ORDERED: Midazolam* 1 MG/ML 5 ML VIAL (5 MG) ONE (12:51)
[2016-07-29] MEDS ORDERED: Lidocaine 2% PF* 10 ML AMP ONE (13:12)
--- NOTE | 2016-07-29 14:04 | PN ---
Progress Note - Progress Note SOAP: Subjective: DOS: 07/29/16 CC: foot infection HPI: 50 yo woman with untreated diabetes admitted with right foot infection, noticed blood in sock, wound on great toe; then fever and rigors for a few days. No fever today; no rash or diarrhea. Plans for toe amputation today. Objective: [] Temp Pulse Resp BP Pulse Ox 36.5 C 70 16 131/79 95 07/29/16 13:50 07/29/16 14:00 07/29/16 14:00 07/29/16 14:00 07/29/16 14:00 Gen:Awake, no distress Neuro: AAOX3 HEENT:PERRL, MMM Neck:supple Heart:RRR no murmur Lungs:CTA BL Abd:+BS NTND soft Skin: no rash MSK: no spine tenderness; right foot erythema receded from forefoot, great toe edema, erythema, eschar Laboratory Results - last 24 hr 07/27/16 07/28/16 07/28/16 15:51 17:08 21:44 WBC RBC Hgb Hct MCV MCH MCHC RDW Plt Count MPV Neut % (Auto) Lymph % (Auto) [place] % (Auto) Eos % (Auto) Baso % (Auto) Absolute Neuts (auto) Absolute Lymphs (auto) Absolute Monos (auto) Absolute Eos (auto) Absolute Basos (auto) Absolute Nucleated RBC Nucleated RBC % Sodium Potassium Chloride Carbon Dioxide Anion Gap BUN Creatinine Est GFR ( Amer) Est GFR (Non-Af Amer) BUN/Creatinine Ratio Glucose POC Glucose (mg/dL) 255 H 176 H Lactic Acid 1.1 Calcium 07/29/16 07/29/16 07/29/16 06:56 06:56 08:00 WBC 11.9 H RBC 4.20 Hgb 10.6 L Hct 34 L MCV 80 MCH 25 L MCHC 32 RDW 15 Plt Count 216 MPV 9 Neut % (Auto) 75.1 Lymph % (Auto) 9.7 L [place] % (Auto) 13.3 H Eos % (Auto) 1.2 Baso % (Auto) 0.7 Absolute Neuts (auto) 8.9 H Absolute Lymphs (auto) 1.2 Absolute Monos (auto) 1.6 H Absolute Eos (auto) 0.1 Absolute Basos (auto) 0.1 Absolute Nucleated RBC 0 Nucleated RBC % 0 Sodium 135 Potassium 3.6 Chloride 105 Carbon Dioxide 24 Anion Gap 6 BUN 14 Creatinine 0.90 Est GFR ( Amer) 85.2 Est GFR (Non-Af Amer) 66.3 BUN/Creatinine Ratio 15.6 Glucose 177 H POC Glucose (mg/dL) 196 H Lactic Acid Calcium 8.0 L 07/29/16 11:55 WBC RBC Hgb Hct MCV MCH MCHC RDW Plt Count MPV Neut % (Auto) Lymph % (Auto) [place] % (Auto) Eos % (Auto) Baso % (Auto) Absolute Neuts (auto) Absolute Lymphs (auto) Absolute Monos (auto) Absolute Eos (auto) Absolute Basos (auto) Absolute Nucleated RBC Nucleated RBC % Sodium Potassium Chloride Carbon Dioxide Anion Gap BUN Creatinine Est GFR ( Amer) Est GFR (Non-Af Amer) BUN/Creatinine Ratio Glucose POC Glucose (mg/dL) 193 H Lactic Acid Calcium Assessment: 1. Right great toe chronic osteomyelitis with gangrene; forefoot cellulitis 2. Strep bacteremia; r/o infective endocarditis pending 3. morbid obesity 4. IDDM with neuropathy Plan: 1. Insulin, change zosyn to CTX and flagyl, amputation pending. MISHEL when able, she is too large for a TTE to be of use to rule out endocarditis.
[2016-07-29] MEDS ORDERED: Acetaminophen TAB* 325 MG PO PRN (17:02)
[2016-07-29] MEDS ORDERED: Morphine INJ* 2 MG/ML 1 ML SYRINGE IV PRN (17:02)
[2016-07-29] MEDS ORDERED: oxyCODONE/Acetamin 5/325 MG* TAB PO PRN (17:02)
[2016-07-29] MEDS: NS 0.9% 1000 ML* 1,000 ML IV SCH (17:15)
[2016-07-29] MEDS: Insulin GLARGINE(*) 1 UNITS UNIT SUBCUT SCH (17:28)
--- NOTE | 2016-07-29 18:19 | PN ---
Subjective Date of Service: 07/29/16 Interval History: s/p right toe amputation today. Feels down because she was not expecting to need an amputation on arrival to hospital. Pain is well controlled. Has no other complaints. Family History: Unchanged from Admission Social History: Unchanged from Admission Past Medical History: Unchanged from Admission Objective Active Medications: Acetaminophen (Tylenol Tab*) 650 mg PO Q4H PRN PRN Reason: FEVER/PAIN Dextrose (D50w Syringe 50 Ml*) 12.5 gm IV PUSH .FOR FS < 60 - SS PRN PRN Reason: FS < 60 Guaifenesin/Dextromethorphan (Robitussin Dm*) 5 ml PO Q6H PRN PRN Reason: COUGH Last Admin: 07/28/16 11:05 Dose: 5 ml Heparin Sodium (Porcine) (Heparin Vial(*)) 5,000 units SUBCUT Q8HR [facility] Last Admin: 07/29/16 15:39 Dose: 5,000 units Sodium Chloride (Ns 0.9% 1000 Ml*) 1,000 mls @ 100 mls/hr IV PER RATE [facility] Last Admin: 07/29/16 17:15 Dose: 100 mls/hr Ceftriaxone Sodium 2 gm/ (Sodium Chloride) 100 mls @ 200 mls/hr IVPB Q12H [facility] Last Admin: 07/29/16 11:14 Dose: 200 mls/hr Metronidazole/Sodium Chloride (Flagyl 500 Mg Ivpb*) 500 mg in 100 mls @ 100 mls /hr IVPB Q8H [facility] Last Admin: 07/29/16 12:15 Dose: 100 mls/hr Insulin Glargine (Lantus(*)) 35 units SUBCUT QPM [facility] Last Admin: 07/29/16 17:28 Dose: 35 units Insulin Human Lispro (Humalog*) 0 - 15 units SUBCUT AC [facility] PRN Reason: Protocol Last Admin: 07/29/16 17:27 Dose: 6 units Insulin Human Lispro (Humalog*) 0 - 10 units SUBCUT AC [facility] PRN Reason: Protocol Last Admin: 07/29/16 12:26 Dose: Not Given Morphine Sulfate (Morphine Inj (Syringe)*) 1 mg IV Q4H PRN PRN Reason: PAIN Oxycodone/Acetaminophen (Percocet 5/325 Tab*) 1 tab PO Q4H PRN PRN Reason: PAIN Vital Signs 06/14/17 06/14/17 06/14/17 19:47 20:00 23:23 Temperature 98.9 F 98.2 F Pulse Rate 90 82 Respiratory 22 22 34 Rate Blood Pressure 131/63 129/71 (mmHg) O2 Sat by Pulse 91 90 Oximetry 07/28/16 07/29/16 07/29/16 23:30 07:42 07:43 Temperature 98.4 F 98.4 F Pulse Rate 75 75 Respiratory 26 22 22 Rate Blood Pressure 123/74 123/74 (mmHg) O2 Sat by Pulse 94 94 Oximetry 07/29/16 07/29/16 07/29/16 07:45 08:00 11:34 Temperature 98.4 F 97.6 F Pulse Rate 75 77 Respiratory 22 16 16 Rate Blood Pressure 123/74 134/81 (mmHg) O2 Sat by Pulse 94 94 93 Oximetry 07/29/16 07/29/16 07/29/16 13:50 13:55 14:00 Temperature 97.7 F Pulse Rate 71 69 70 Respiratory 14 16 16 Rate Blood Pressure 133/67 132/79 131/79 (mmHg) O2 Sat by Pulse 95 98 95 Oximetry 07/29/16 07/29/16 07/29/16 14:15 14:28 15:41 Temperature 97.3 F 97.5 F Pulse Rate 73 69 75 Respiratory 16 16 20 Rate Blood Pressure 133/79 134/77 120/83 (mmHg) O2 Sat by Pulse 96 96 96 Oximetry Oxygen Devices in Use Now: None Appearance: obese, NAD Eyes: No Scleral Icterus, PERRLA Ears/Nose/Mouth/Throat: NL Teeth, Lips, Gums, Clear Oropharnyx, Mucous Membranes Moist Neck: NL Appearance and Movements; NL JVP, Trachea Midline Respiratory: Symmetrical Chest Expansion and Respiratory Effort, Clear to Auscultation Cardiovascular: NL Sounds; No Murmurs; No JVD, RRR Abdominal: NL Sounds; No Tenderness; No Distention, No Hepatosplenomegaly Lymphatic: No Cervical Adenopathy Skin: - - right foot and lower leg wrapped after surgery Neurological: Alert and Oriented x 3 Result Diagrams: 07/29/16 06:56 07/29/16 06:56 Additional Lab and Data: Lab Results 07/27/16 07/27/16 07/27/16 Range/Units 15:35 15:35 15:35 WBC 16.1 H (3.5-10.8) 10^3/ul RBC 4.84 (4.0-5.4) 10^6/ul Hgb 12.4 (12.0-16.0) g/dl Hct 39 (35-47) % MCV 80 (80-97) fL MCH 26 L (27-31) pg MCHC 32 (31-36) g/dl RDW 14 (10.5-15) % Plt Count 244 (150-450) 10^3/ul MPV 10 (7.4-10.4) um3 Immature Gran % (Auto) 5 (0-9) % Absolute Neuts (auto) 13.7 H (1.5-7.7) 10^3/ul Absolute Lymphs (auto) 1.0 (1.0-4.8) 10^3/ul Absolute Monos (auto) 1.3 H (0-0.8) 10^3/ul Absolute Eos (auto) 0 (0-0.6) 10^3/ul Absolute Basos (auto) 0.1 (0-0.2) 10^3/ul Absolute Nucleated RBC 0.01 10^3/ul Neutrophils % 81 (38-83) % Band Neutrophils % 5 (0-8) % Lymphocytes % 5 L (25-47) % Monocytes % 8 (0-13) % Eosinophils % 1 (0-6) % Normal RBC Morphology Normal (Normal) Hem Pathologist Commnt Pending INR (Anticoag Therapy) 1.03 (0.89-1.11) APTT 17.6 L (26.0-36.3) seconds Sodium 126 L (133-145) mmol/L Potassium 4.0 (3.5-5.0) mmol/L Chloride 92 L (101-111) mmol/L Carbon Dioxide 26 (22-32) mmol/L Anion Gap 8 (2-11) mmol/L BUN 20 (6-24) mg/dL Creatinine 0.72 (0.51-0.95) mg/dL Est GFR ( Amer) 110.3 (>60) Est GFR (Non-Af Amer) 85.7 (>60) BUN/Creatinine Ratio 27.8 H (8-20) Glucose 353 H (70-100) mg/dL Lactic Acid (0.5-2.0) mmol/L Calcium 8.7 (8.6-10.3) mg/dL Total Bilirubin 0.70 (0.2-1.0) mg/dL AST 56 H (13-39) U/L ALT 60 H (7-52) U/L Alkaline Phosphatase 120 H (34-104) U/L Total Creatine Kinase 46 (10-223) U/L Troponin I 0.09 H* (<0.04) ng/mL C-Reactive Protein 220.53 H (< 5.00) mg/L Total Protein 7.2 (6.4-8.9) g/dL Albumin 2.6 L (3.2-5.2) g/dL Globulin 4.6 H (2-4) g/dL Albumin/Globulin Ratio 0.6 L (1-3) // Range/Units 15:51 WBC (3.5-10.8) 10^3/ul RBC (4.0-5.4) 10^6/ul Hgb (12.0-16.0) g/dl Hct (35-47) % MCV (80-97) fL MCH (27-31) pg MCHC (31-36) g/dl RDW (10.5-15) % Plt Count (150-450) 10^3/ul MPV (7.4-10.4) um3 Immature Gran % (Auto) (0-9) % Absolute Neuts (auto) (1.5-7.7) 10^3/ul Absolute Lymphs (auto) (1.0-4.8) 10^3/ul Absolute Monos (auto) (0-0.8) 10^3/ul Absolute Eos (auto) (0-0.6) 10^3/ul Absolute Basos (auto) (0-0.2) 10^3/ul Absolute Nucleated RBC 10^3/ul Neutrophils % (38-83) % Band Neutrophils % (0-8) % Lymphocytes % (25-47) % Monocytes % (0-13) % Eosinophils % (0-6) % Normal RBC Morphology (Normal) Hem Pathologist Commnt INR (Anticoag Therapy) (0.89-1.11) APTT (26.0-36.3) seconds Sodium (133-145) mmol/L Potassium (3.5-5.0) mmol/L Chloride (101-111) mmol/L Carbon Dioxide (22-32) mmol/L Anion Gap (2-11) mmol/L BUN (6-24) mg/dL Creatinine (0.51-0.95) mg/dL Est GFR ( Amer) (>60) Est GFR (Non-Af Amer) (>60) BUN/Creatinine Ratio (8-20) Glucose (70-100) mg/dL Lactic Acid 1.1 (0.5-2.0) mmol/L Calcium (8.6-10.3) mg/dL Total Bilirubin (0.2-1.0) mg/dL AST (13-39) U/L ALT (7-52) U/L Alkaline Phosphatase (34-104) U/L Total Creatine Kinase (10-223) U/L Troponin I (<0.04) ng/mL C-Reactive Protein (< 5.00) mg/L Total Protein (6.4-8.9) g/dL Albumin (3.2-5.2) g/dL Globulin (2-4) g/dL Albumin/Globulin Ratio (1-3) Microbiology and Other Data: Microbiology 07/29/16 13:55 Skin and Soft Tissue MRSA/MSSA (PCR - Final Toe - Right [place] Mr[place] Negative S.aureus Negative Gram Stain - Final Assess/Plan/Problems-Billing Assessment: R diabetic foot infection, osteomyelitis, bacteremia in a 50 yo F with hx of uncontrolled DM, non-compliance s/p right great toe amputation 07/29 - Patient Problems (1) Osteomyelitis Comment: s/p amputation CTX and flagyl duration of abx pending MISHEL to r/o IE (2) Type 2 diabetes mellitus Comment: Basal bolus insulin HbA1c is 13.4% (3) DVT prophylaxis Comment: HSQ Status and Disposition: Inpatient for osteomyelitis, bacteremia, likely will need surgical intervention
--- NOTE | 2016-07-29 23:39 | OP ---
DATE OF OPERATION: 07/28/16 - ROOM #415 DATE OF : 65 SURGEON: Abel Lucero MD MORTGAGE COUNSELOR: Syl Dumont PA-C ANESTHESIOLOGIST: Mercedes De Luna MD ANESTHESIA: MAC PRE-OP DIAGNOSES: 1. Infected necrotic right great toe. 2. Diabetes. POST-OP DIAGNOSES: 1. Infected necrotic right great toe. 2. Diabetes. OPERATIVE PROCEDURE: Right first ray amputation. DESCRIPTION OF PROCEDURE: The patient was taken to the operating room where ankle Esmarch was raised. We made a transverse incision around the base of the first toe, carried proximally along the first metatarsal shaft. We divided the first metatarsal proximally with an oblique osteotomy and then dissected distally around the metatarsal disarticulating the MTP joint and sending the first ray to Pathology. Local cultures were sent. We then irrigated this area thoroughly with saline and debrided the flaps back to good viable tissue. The electrocautery was used to control hemostasis, and then we closed dorsal to plantar with 2-0 Vicryl sutures and 2-0 Surgipro and compression dressing applied. [id number]/[facility] #: [id number] [facility]
[2016-07-30] MEDS: metroNIDAZOLE IV 500 MG/100ML* 500 MG/100 ML BAG IVPB SCH ×3 (02:10→19:35)
[2016-07-30] MEDS: Heparin VIAL(*) 5000 UNITS/ML VIAL (FIVE THOUSAND) SUBCUT SCH ×3 (05:31→21:08)
[2016-07-30] MEDS: NS 0.9% 1000 ML* 1,000 ML IV SCH (06:00)
[2016-07-30] MEDS: Insulin LISPRO* 1 UNITS UNIT SUBCUT SCH ×6 (08:41→17:31)
[2016-07-30] MEDS ORDERED: Naloxone* 0.4 MG/ML 1 ML VIAL ONE (10:45)
[2016-07-30] MEDS ORDERED: fentaNYL* 50 MCG/ML 2 ML VIAL (100 MCG VIAL) ONE (10:45)
[2016-07-30] MEDS ORDERED: Midazolam* 1 MG/ML 5 ML VIAL (5 MG) ONE (10:45)
[2016-07-30] MEDS ORDERED: Lidocaine 2% VISCOUS* 15 ML UDC ONE (10:46)
[2016-07-30] MEDS ORDERED: Flumazenil* 0.1 MG/ML 5 ML MDV ONE (10:46)
--- NOTE | 2016-07-30 13:46 | PN ---
Progress Note - Progress Note SOAP: Subjective: 50 y/o female s/p R Great toe amputation by Dr. Lucero 07/29/2016. Patient without questions, feeling well. Afebrile, VSS. Eager for DC Objective: General- well appearing, eating lunch, AO MSK- R foot dressing intact, no drainage, odor noted, able to move 2-4 toes well , unable to visualize 5th toe due to splint. Vital Signs Temp 98.3 F 07/30/16 07:36 Pulse 76 07/30/16 07:36 Resp 20 07/30/16 09:01 BP 137/61 07/30/16 07:36 Pulse Ox 93 07/30/16 07:36 Intake & Output 07/29/16 07/30/16 07/30/16 18:59 06:59 18:59 Intake Total 850 1690 440 Balance 850 1690 440 Intake: IV Fluids 450 990 NS (0.9%) 990 lr 450 IVPB 300 ABX - CEFTRIAXONE 100 ABX - FLAGYL 200 Oral 400 400 440 Other: # Voids 1 Laboratory Results - last 24 hr 07/27/16 07/29/16 07/29/16 15:51 13:58 17:10 POC Glucose (mg/dL) 178 H 229 H Lactic Acid 1.1 07/29/16 07/30/16 21:42 12:44 POC Glucose (mg/dL) 287 H 184 H Lactic Acid Assessment: 50 y/o female s/p R Great toe amputation by Dr. Lucero 07/29/2016. Plan: - DVT proph- - FOllow up with Dr. Lucero within 10-14 days - COntinue PT/ OT Active Medications Generic Name Dose Route Start Last Admin Trade Name Freq PRN Reason Stop Dose Admin Acetaminophen 650 mg 07/29/16 17:02 Tylenol Tab* PO Q4H PRN FEVER/PAIN Dextrose 12.5 gm 07/27/16 17:37 D50w Syringe 50 Ml* IV PUSH .FOR FS < 60 - SS PRN FS < 60 Guaifenesin/Dextromethorphan 5 ml 07/28/16 09:14 07/28/16 11:05 Robitussin Dm* PO 5 ml Q6H PRN Administration COUGH Heparin Sodium (Porcine) 5,000 units 07/27/16 22:00 07/30/16 13:43 Heparin Vial(*) SUBCUT 5,000 units Q8HR [facility] Administration Sodium Chloride 1,000 mls @ 100 mls/hr 07/27/16 17:45 07/30/16 06:00 Ns 0.9% 1000 Ml* IV 100 mls/hr PER RATE [facility] Administration Ceftriaxone Sodium 2 gm/ 100 mls @ 200 mls/hr 07/29/16 10:00 07/30/16 13:21 Sodium Chloride IVPB 200 mls/hr Q12H [facility] Administration Metronidazole/Sodium Chloride 500 mg in 100 mls @ 100 mls/hr 07/29/16 10:30 07/30/16 02:10 Flagyl 500 Mg Ivpb* IVPB 100 mls/hr Q8H [facility] Administration Insulin Glargine 35 units 07/27/16 21:00 07/29/16 17:28 Lantus(*) SUBCUT 35 units QPM [facility] Administration Insulin Human Lispro 0 - 15 units 07/27/16 18:00 07/30/16 13:44 Humalog* SUBCUT 3 units AC [facility] Administration Protocol Insulin Human Lispro 0 - 10 units 07/28/16 16:30 07/30/16 13:43 Humalog* SUBCUT 2 units AC [facility] Administration Protocol Morphine Sulfate 1 mg 07/29/16 17:02 07/30/16 03:21 Morphine Inj (Syringe)* IV 1 mg Q4H PRN Administration PAIN Oxycodone/Acetaminophen 1 tab 07/29/16 17:02 Percocet 5/325 Tab* PO Q4H PRN PAIN
--- NOTE | 2016-07-30 16:02 | PN ---
Progress Note - Progress Note SOAP: Subjective: DOS: 07/30/16 CC: foot infection HPI: 50 yo woman with untreated diabetes admitted with right foot infection, noticed blood in sock, wound on great toe; then fever and rigors for a few days. Tolerated ray amputation well. No fever, rash, or diarrhea Objective: [] Vital Signs Temp 36.8 C 07/30/16 07:36 Pulse 76 07/30/16 07:36 Resp 20 07/30/16 09:01 BP 137/61 07/30/16 07:36 Pulse Ox 93 07/30/16 07:36 Intake & Output 07/29/16 07/30/16 07/30/16 18:59 06:59 18:59 Intake Total 850 1690 943 Balance 850 1690 943 Intake: IV Fluids 450 990 NS (0.9%) 990 lr 450 IVPB 300 103 ABX - CEFTRIAXONE 100 103 ABX - FLAGYL 200 Oral 400 400 840 Other: # Voids 1 Gen:Awake, no distress Neuro: AAOX3 HEENT:PERRL, MMM Neck:supple Heart:RRR no murmur Lungs:CTA BL Abd:+BS NTND soft Skin: no rash MSK: right foot splinted Laboratory Results - last 24 hr 07/27/16 07/29/16 07/29/16 15:51 17:10 21:42 POC Glucose (mg/dL) 229 H 287 H Lactic Acid 1.1 07/30/16 12:44 POC Glucose (mg/dL) 184 H Lactic Acid MISHEL no vegetation Assessment: 1. Right great toe chronic osteomyelitis with gangrene; forefoot cellulitis s/p 1st ray amputation 2. Strep bacteremia due to foot infection 3. morbid obesity 4. IDDM with neuropathy Plan: 1. CTX and flagyl, will plan on 4 more weeks antibiotics given necrotizing infection and possible remaining infected bone. Weekly CBC, CMP, CRP ordered while on IV antibiotics. Will plan on ceftriaxone 2 gm IV daily and flagyl 500 mg PO TID, each for [address] Hernández. 35 minutes floor time >50% face to face in counseling with patient regarding next steps of antibiotic treatment and need for follow up and ongoing diabetes management.
--- NOTE | 2016-07-30 16:30 | TEE ---
Patient: MAYITO RENEE [facility] Rec#: [id number] : 1965 Date: 07/30/2016 Age: 50y Height: 175.3 cm / 69.0 in Weight: 159 kg / 350.4 lbs Sex: F BSA: 2.6 Room#: 415 Admit Date#: 07/28/2016 Type: Inpatient Referring: Abel Hernández MD Performing: Chandrakant Ovalles MD Reading: Chandrakant Ovalles MD Van Driver: Mildred Recinos RN RDCS Nurse: Carmen Roberts RN Nurse: Ricardo Amin RN Transesophageal Echocardiogram Indication: Bacteremia, osteomyelitis BP: 139/68 HR: 74 Rhythm: NSR Findings History: HTN, DM, morbid obesity, smoker Technical Comments: The study quality is good. Left Ventricle: The left ventricular chamber size is normal. Left ventricular systolic function is at the lower limits of normal. The estimated ejection fraction is 50-55%. There is an E to A reversal in the mitral valve flow pattern suggestive of diastolic dysfunction. Left Atrium: The left atrial chamber size is normal. No thrombus is visualized within the left atrium. There is no thrombus visualized in the left atrial appendage. Right Ventricle: The right ventricular cavity size is normal. The right ventricular global systolic function is low normal. Right Atrium: The right atrial cavity size is normal. A patent foramen ovale is demonstrated by agitated contrast. There is evidence of an atrial septal aneurysm. Aortic Valve: The aortic valve is trileaflet. There is a trace of aortic regurgitation. There is no evidence of aortic stenosis. Mitral Valve: The mitral valve leaflets are mildly thickened. There is a trace of mitral regurgitation. There is no evidence of mitral stenosis. Tricuspid Valve: The tricuspid valve leaflets are normal. There is an elongated, thickened structure seen below the tricuspid valve in the right ventricle that is possibly a thickened chordae, thickened papillary muscle, or moderator band. A vegetation is less likely. The surface study did not better visualize the structure. There is trace tricuspid regurgitation. There is no tricuspid stenosis. Pulmonic Valve: The pulmonic valve appears normal. There is no evidence of pulmonic regurgitation. There is no pulmonic stenosis. Pericardium: There is no significant pericardial effusion. A pericardial fat pad is visualized. Aorta: There is no dilatation of the ascending aorta. The aortic root is normal in size. There is minimal atherosclerotic plaque seen in the aorta. Pulmonary Artery: The main pulmonary artery appears normal. Venous: The bicaval view was obtained and appears normal. The pulmonary veins appear normal. The LUPV was visualized and interrogated with Doppler. MISHEL Procedures: All standard views were attempted within the limitations of patient tolerance and safety. History and physical as well as labs were reviewed. The patient was in a fasting state. Risks and benefits of the procedure, including alternatives, were discussed and written informed consent was obtained. The patient and/or their health care advertising account representative expressed understanding of the procedure, risks and benefits. Baseline and continuous monitoring of blood pressure, heart rate, pulse oximetry and heart rhythm was performed throughout the procedure. The appropriate time-out procedure was performed as per [facility] protocol. The patient was placed in the left lateral decubitus position. The patient received IV Midazolam with a total dose of 8 mg. The patient received IV Fentanyl with a total dose of 50 mcg. An oral bite block was inserted for protection of oral dentition. The multiplane transesophageal echocardiogram probe was inserted through the posterior oropharynx and advanced into the esophagus without difficulty. Multiple 2D images were obtained of the heart and its related structures. Color flow Doppler was used for evaluation. Spectral Doppler was also used. The atrial septum was interrogated with color flow Doppler. At the conclusion of the procedure the probe was removed with continuous suction without complications. The patient tolerated the procedure with no apparent complications. Contrast: Normal saline was used as contrast for the bubble study. Image 87 Conclusions Left ventricular systolic function is at the lower limits of normal. The estimated ejection fraction is 50-55%. There is an E to A reversal in the mitral valve flow pattern suggestive of diastolic dysfunction. A patent foramen ovale is demonstrated by agitated contrast. There is evidence of an atrial septal aneurysm. The tricuspid valve leaflets are normal. There is an elongated, echodense structure seen below the tricuspid valve in the right ventricle of uncertain etiology. Possibilities include a thickened chordae, a thickened papillary muscle, or moderator band. A vegetation is less likely. There is minimal atherosclerotic plaque seen in the aorta. Trivial valvular regurgitation; no obvious vegetations. The structure seen in the RV may be a normal variant; Consider repeat MISHEL in 2-3 weeks to reevaluate or sooner if fevers recur or the clinical course dictates. Reviewed with Dr. Velazquez No prior studies. Measurements Name Value Normal Range Aortic Annulus 2.3 cm (1.4 - 2.6) Ao root diameter (2D) 3.3 cm (2.1 - 3.5) Ascending Ao 3.1 cm (2.1 - 3.4) Name Value Normal Range MV E-wave Vmax 0.73 m/sec - MV deceleration time 180 msec - MV A-wave Vmax 0.85 m/sec - MV E:A ratio 0.86 ratio -
--- NOTE | 2016-07-30 17:26 | PN ---
Subjective Date of Service: 07/30/16 Interval History: Pain well controlled Anxious to be discharged no other complaints Family History: Unchanged from Admission Social History: Unchanged from Admission Past Medical History: Unchanged from Admission Objective Active Medications: Acetaminophen (Tylenol Tab*) 650 mg PO Q4H PRN PRN Reason: FEVER/PAIN Dextrose (D50w Syringe 50 Ml*) 12.5 gm IV PUSH .FOR FS < 60 - SS PRN PRN Reason: FS < 60 Guaifenesin/Dextromethorphan (Robitussin Dm*) 5 ml PO Q6H PRN PRN Reason: COUGH Last Admin: 07/28/16 11:05 Dose: 5 ml Heparin Sodium (Porcine) (Heparin Vial(*)) 5,000 units SUBCUT Q8HR [facility] Last Admin: 07/30/16 13:43 Dose: 5,000 units Ceftriaxone Sodium 2 gm/ (Sodium Chloride) 100 mls @ 200 mls/hr IVPB Q12H [facility] Last Admin: 07/30/16 13:21 Dose: 200 mls/hr Metronidazole/Sodium Chloride (Flagyl 500 Mg Ivpb*) 500 mg in 100 mls @ 100 mls /hr IVPB Q8H [facility] Last Admin: 07/30/16 14:02 Dose: 100 mls/hr Insulin Glargine (Lantus(*)) 35 units SUBCUT QPM [facility] Last Admin: 07/29/16 17:28 Dose: 35 units Insulin Human Lispro (Humalog*) 0 - 15 units SUBCUT AC [facility] PRN Reason: Protocol Last Admin: 07/30/16 13:44 Dose: 3 units Insulin Human Lispro (Humalog*) 0 - 10 units SUBCUT AC [facility] PRN Reason: Protocol Last Admin: 07/30/16 13:43 Dose: 2 units Morphine Sulfate (Morphine Inj (Syringe)*) 1 mg IV Q4H PRN PRN Reason: PAIN Last Admin: 07/30/16 03:21 Dose: 1 mg Oxycodone/Acetaminophen (Percocet 5/325 Tab*) 1 tab PO Q4H PRN PRN Reason: PAIN Vital Signs 07/29/16 07/29/16 07/29/16 19:35 20:00 23:13 Temperature 97.7 F 97.7 F Pulse Rate 83 81 Respiratory 28 16 16 Rate Blood Pressure 137/71 132/73 (mmHg) O2 Sat by Pulse 94 92 92 Oximetry 07/30/16 07/30/16 07/30/16 00:00 03:21 03:30 Temperature 98.3 F Pulse Rate 73 Respiratory 18 20 Rate Blood Pressure 146/59 (mmHg) O2 Sat by Pulse 92 93 Oximetry 07/30/16 07/30/16 07/30/16 04:21 07:36 09:01 Temperature 98.3 F Pulse Rate 76 Respiratory 18 16 20 Rate Blood Pressure 137/61 (mmHg) O2 Sat by Pulse 93 Oximetry 07/30/16 16:18 Temperature 97.8 F Pulse Rate 79 Respiratory 17 Rate Blood Pressure 149/66 (mmHg) O2 Sat by Pulse 96 Oximetry Oxygen Devices in Use Now: None Appearance: obese, NAD Eyes: No Scleral Icterus, PERRLA Ears/Nose/Mouth/Throat: Mucous Membranes Moist, - - poor dentition Neck: NL Appearance and Movements; NL JVP, Trachea Midline Respiratory: Symmetrical Chest Expansion and Respiratory Effort, Clear to Auscultation Cardiovascular: NL Sounds; No Murmurs; No JVD, RRR Abdominal: NL Sounds; No Tenderness; No Distention, No Hepatosplenomegaly Lymphatic: No Cervical Adenopathy Extremities: No Edema, No Clubbing, Cyanosis Skin: No Rash or Ulcers Neurological: Alert and Oriented x 3 Result Diagrams: 07/29/16 06:56 07/29/16 06:56 Additional Lab and Data: Lab Results 07/27/16 07/27/16 07/27/16 Range/Units 15:35 15:35 15:35 WBC 16.1 H (3.5-10.8) 10^3/ul RBC 4.84 (4.0-5.4) 10^6/ul Hgb 12.4 (12.0-16.0) g/dl Hct 39 (35-47) % MCV 80 (80-97) fL MCH 26 L (27-31) pg MCHC 32 (31-36) g/dl RDW 14 (10.5-15) % Plt Count 244 (150-450) 10^3/ul MPV 10 (7.4-10.4) um3 Immature Gran % (Auto) 5 (0-9) % Absolute Neuts (auto) 13.7 H (1.5-7.7) 10^3/ul Absolute Lymphs (auto) 1.0 (1.0-4.8) 10^3/ul Absolute Monos (auto) 1.3 H (0-0.8) 10^3/ul Absolute Eos (auto) 0 (0-0.6) 10^3/ul Absolute Basos (auto) 0.1 (0-0.2) 10^3/ul Absolute Nucleated RBC 0.01 10^3/ul Neutrophils % 81 (38-83) % Band Neutrophils % 5 (0-8) % Lymphocytes % 5 L (25-47) % Monocytes % 8 (0-13) % Eosinophils % 1 (0-6) % Normal RBC Morphology Normal (Normal) Hem Pathologist Commnt Pending INR (Anticoag Therapy) 1.03 (0.89-1.11) APTT 17.6 L (26.0-36.3) seconds Sodium 126 L (133-145) mmol/L Potassium 4.0 (3.5-5.0) mmol/L Chloride 92 L (101-111) mmol/L Carbon Dioxide 26 (22-32) mmol/L Anion Gap 8 (2-11) mmol/L BUN 20 (6-24) mg/dL Creatinine 0.72 (0.51-0.95) mg/dL Est GFR ( Amer) 110.3 (>60) Est GFR (Non-Af Amer) 85.7 (>60) BUN/Creatinine Ratio 27.8 H (8-20) Glucose 353 H (70-100) mg/dL Lactic Acid (0.5-2.0) mmol/L Calcium 8.7 (8.6-10.3) mg/dL Total Bilirubin 0.70 (0.2-1.0) mg/dL AST 56 H (13-39) U/L ALT 60 H (7-52) U/L Alkaline Phosphatase 120 H (34-104) U/L Total Creatine Kinase 46 (10-223) U/L Troponin I 0.09 H* (<0.04) ng/mL C-Reactive Protein 220.53 H (< 5.00) mg/L Total Protein 7.2 (6.4-8.9) g/dL Albumin 2.6 L (3.2-5.2) g/dL Globulin 4.6 H (2-4) g/dL Albumin/Globulin Ratio 0.6 L (1-3) 07/27/ Range/Units 15:51 WBC (3.5-10.8) 10^3/ul RBC (4.0-5.4) 10^6/ul Hgb (12.0-16.0) g/dl Hct (35-47) % MCV (80-97) fL MCH (27-31) pg MCHC (31-36) g/dl RDW (10.5-15) % Plt Count (150-450) 10^3/ul MPV (7.4-10.4) um3 Immature Gran % (Auto) (0-9) % Absolute Neuts (auto) (1.5-7.7) 10^3/ul Absolute Lymphs (auto) (1.0-4.8) 10^3/ul Absolute Monos (auto) (0-0.8) 10^3/ul Absolute Eos (auto) (0-0.6) 10^3/ul Absolute Basos (auto) (0-0.2) 10^3/ul Absolute Nucleated RBC 10^3/ul Neutrophils % (38-83) % Band Neutrophils % (0-8) % Lymphocytes % (25-47) % Monocytes % (0-13) % Eosinophils % (0-6) % Normal RBC Morphology (Normal) Hem Pathologist Commnt INR (Anticoag Therapy) (0.89-1.11) APTT (26.0-36.3) seconds Sodium (133-145) mmol/L Potassium (3.5-5.0) mmol/L Chloride (101-111) mmol/L Carbon Dioxide (22-32) mmol/L Anion Gap (2-11) mmol/L BUN (6-24) mg/dL Creatinine (0.51-0.95) mg/dL Est GFR ( Amer) (>60) Est GFR (Non-Af Amer) (>60) BUN/Creatinine Ratio (8-20) Glucose (70-100) mg/dL Lactic Acid 1.1 (0.5-2.0) mmol/L Calcium (8.6-10.3) mg/dL Total Bilirubin (0.2-1.0) mg/dL AST (13-39) U/L ALT (7-52) U/L Alkaline Phosphatase (34-104) U/L Total Creatine Kinase (10-223) U/L Troponin I (<0.04) ng/mL C-Reactive Protein (< 5.00) mg/L Total Protein (6.4-8.9) g/dL Albumin (3.2-5.2) g/dL Globulin (2-4) g/dL Albumin/Globulin Ratio (1-3) Microbiology and Other Data: Microbiology 07/29/16 13:55 Skin and Soft Tissue MRSA/MSSA (PCR - Final Toe - Right Big Mrsa Negative S.aureus Negative Gram Stain - Final Assess/Plan/Problems-Billing Assessment: R diabetic foot infection, osteomyelitis, bacteremia in a 50 yo F with hx of uncontrolled DM, non-compliance s/p right great toe amputation 07/29 - Patient Problems (1) Osteomyelitis Comment: s/p amputation 07/29 CTX and flagyl x 28d PICC placement pending MISHEL without vegitation (2) Bacteremia Comment: strep CTX as above (3) Type 2 diabetes mellitus Comment: Basal bolus insulin HbA1c is 13.4% (4) DVT prophylaxis Comment: HSQ Status and Disposition: Inpatient for osteomyelitis, bacteremia, likely will need surgical intervention
[2016-07-30] MEDS: Insulin GLARGINE(*) 1 UNITS UNIT SUBCUT SCH (17:30)
[2016-07-31] MEDS: metroNIDAZOLE IV 500 MG/100ML* 500 MG/100 ML BAG IVPB SCH ×3 (02:50→18:05)
[2016-07-31] MEDS: Heparin VIAL(*) 5000 UNITS/ML VIAL (FIVE THOUSAND) SUBCUT SCH ×3 (05:33→21:19)
[2016-07-31] MEDS: Insulin LISPRO* 1 UNITS UNIT SUBCUT SCH ×6 (08:41→18:07)
--- NOTE | 2016-07-31 10:44 | PN ---
PROGRESS NOTE: DATE OF SERVICE: 07/31/16 SUBJECTIVE: Karma is a 2 days postop first ray amputation with multiple cultures positive for Strep agalactiae and Strep dysgalactiae. She is currently on ceftriaxone and Flagyl. Her blood glucose has come down from admission 287 down to 174, so she is having much better control of that. Her vital signs are displaying afebrile status. Her pain also on examination today is essentially nil and she feels well overall, sitting up and eating her breakfast. The splint is intact. There is no gross drainage or bleeding noted on the splint. She just postop day 2, so we will wait another day or two for dressing change. I will continue the IV antibiotics on a broad-spectrum and follow laboratories above. [id number]/[facility] #: [id number] CHET
--- NOTE | 2016-07-31 16:53 | PN ---
Subjective Date of Service: 07/31/16 Interval History: Has not complaints. Anxious to have PICC placed and return home. Family History: Unchanged from Admission Social History: Unchanged from Admission Past Medical History: Unchanged from Admission Objective Active Medications: Acetaminophen (Tylenol Tab*) 650 mg PO Q4H PRN PRN Reason: FEVER/PAIN Last Admin: 07/30/16 17:33 Dose: 650 mg Dextrose (D50w Syringe 50 Ml*) 12.5 gm IV PUSH .FOR FS < 60 - SS PRN PRN Reason: FS < 60 Guaifenesin/Dextromethorphan (Robitussin Dm*) 5 ml PO Q6H PRN PRN Reason: COUGH Last Admin: 07/28/16 11:05 Dose: 5 ml Heparin Sodium (Porcine) (Heparin Vial(*)) 5,000 units SUBCUT Q8HR [facility] Last Admin: 07/31/16 12:57 Dose: 5,000 units Ceftriaxone Sodium 2 gm/ (Sodium Chloride) 100 mls @ 200 mls/hr IVPB Q12H [facility] Last Admin: 07/31/16 08:41 Dose: 200 mls/hr Metronidazole/Sodium Chloride (Flagyl 500 Mg Ivpb*) 500 mg in 100 mls @ 100 mls /hr IVPB Q8H [facility] Last Admin: 07/31/16 10:08 Dose: 100 mls/hr Insulin Glargine (Lantus(*)) 35 units SUBCUT QPM [facility] Last Admin: 07/30/16 17:30 Dose: 35 units Insulin Human Lispro (Humalog*) 0 - 15 units SUBCUT AC [facility] PRN Reason: Protocol Last Admin: 07/31/16 12:57 Dose: 3 units Insulin Human Lispro (Humalog*) 0 - 10 units SUBCUT AC [facility] PRN Reason: Protocol Last Admin: 07/31/16 12:57 Dose: 6 units Morphine Sulfate (Morphine Inj (Syringe)*) 1 mg IV Q4H PRN PRN Reason: PAIN Last Admin: 07/30/16 03:21 Dose: 1 mg Oxycodone/Acetaminophen (Percocet 5/325 Tab*) 1 tab PO Q4H PRN PRN Reason: PAIN Vital Signs 07/30/16 07/30/16 07/31/16 20:00 23:29 00:00 Temperature 98.1 F Pulse Rate 70 Respiratory 17 17 Rate Blood Pressure 148/64 (mmHg) O2 Sat by Pulse 96 97 97 Oximetry 07/31/16 07/31/16 07/31/16 03:56 07:56 10:19 Temperature 97.6 F 98.1 F Pulse Rate 71 73 Respiratory 22 16 18 Rate Blood Pressure 152/76 152/81 (mmHg) O2 Sat by Pulse 93 95 Oximetry 07/31/16 11:33 Temperature Pulse Rate 71 Respiratory Rate Blood Pressure (mmHg) O2 Sat by Pulse 96 Oximetry Oxygen Devices in Use Now: None Appearance: NAD Eyes: No Scleral Icterus, PERRLA Ears/Nose/Mouth/Throat: Clear Oropharnyx, Mucous Membranes Moist Neck: NL Appearance and Movements; NL JVP, Trachea Midline Respiratory: Symmetrical Chest Expansion and Respiratory Effort, - - rales b/l bases Cardiovascular: RRR Abdominal: NL Sounds; No Tenderness; No Distention, No Hepatosplenomegaly Lymphatic: No Cervical Adenopathy Extremities: No Edema Skin: - - right 4 toes nv intact, no erythema Neurological: Alert and Oriented x 3 Result Diagrams: 07/29/16 06:56 07/29/16 06:56 Additional Lab and Data: Lab Results 07/27/16 07/27/16 07/27/16 Range/Units 15:35 15:35 15:35 WBC 16.1 H (3.5-10.8) 10^3/ul RBC 4.84 (4.0-5.4) 10^6/ul Hgb 12.4 (12.0-16.0) g/dl Hct 39 (35-47) % MCV 80 (80-97) fL MCH 26 L (27-31) pg MCHC 32 (31-36) g/dl RDW 14 (10.5-15) % Plt Count 244 (150-450) 10^3/ul MPV 10 (7.4-10.4) um3 Immature Gran % (Auto) 5 (0-9) % Absolute Neuts (auto) 13.7 H (1.5-7.7) 10^3/ul Absolute Lymphs (auto) 1.0 (1.0-4.8) 10^3/ul Absolute Monos (auto) 1.3 H (0-0.8) 10^3/ul Absolute Eos (auto) 0 (0-0.6) 10^3/ul Absolute Basos (auto) 0.1 (0-0.2) 10^3/ul Absolute Nucleated RBC 0.01 10^3/ul Neutrophils % 81 (38-83) % Band Neutrophils % 5 (0-8) % Lymphocytes % 5 L (25-47) % Monocytes % 8 (0-13) % Eosinophils % 1 (0-6) % Normal RBC Morphology Normal (Normal) Hem Pathologist Commnt Pending INR (Anticoag Therapy) 1.03 (0.89-1.11) APTT 17.6 L (26.0-36.3) seconds Sodium 126 L (133-145) mmol/L Potassium 4.0 (3.5-5.0) mmol/L Chloride 92 L (101-111) mmol/L Carbon Dioxide 26 (22-32) mmol/L Anion Gap 8 (2-11) mmol/L BUN 20 (6-24) mg/dL Creatinine 0.72 (0.51-0.95) mg/dL Est GFR ( Amer) 110.3 (>60) Est GFR (Non-Af Amer) 85.7 (>60) BUN/Creatinine Ratio 27.8 H (8-20) Glucose 353 H (70-100) mg/dL Lactic Acid (0.5-2.0) mmol/L Calcium 8.7 (8.6-10.3) mg/dL Total Bilirubin 0.70 (0.2-1.0) mg/dL AST 56 H (13-39) U/L ALT 60 H (7-52) U/L Alkaline Phosphatase 120 H (34-104) U/L Total Creatine Kinase 46 (10-223) U/L Troponin I 0.09 H* (<0.04) ng/mL C-Reactive Protein 220.53 H (< 5.00) mg/L Total Protein 7.2 (6.4-8.9) g/dL Albumin 2.6 L (3.2-5.2) g/dL Globulin 4.6 H (2-4) g/dL Albumin/Globulin Ratio 0.6 L (1-3) // Range/Units 15:51 WBC (3.5-10.8) 10^3/ul RBC (4.0-5.4) 10^6/ul Hgb (12.0-16.0) g/dl Hct (35-47) % MCV (80-97) fL MCH (27-31) pg MCHC (31-36) g/dl RDW (10.5-15) % Plt Count (150-450) 10^3/ul MPV (7.4-10.4) um3 Immature Gran % (Auto) (0-9) % Absolute Neuts (auto) (1.5-7.7) 10^3/ul Absolute Lymphs (auto) (1.0-4.8) 10^3/ul Absolute Monos (auto) (0-0.8) 10^3/ul Absolute Eos (auto) (0-0.6) 10^3/ul Absolute Basos (auto) (0-0.2) 10^3/ul Absolute Nucleated RBC 10^3/ul Neutrophils % (38-83) % Band Neutrophils % (0-8) % Lymphocytes % (25-47) % Monocytes % (0-13) % Eosinophils % (0-6) % Normal RBC Morphology (Normal) Hem Pathologist Commnt INR (Anticoag Therapy) (0.89-1.11) APTT (26.0-36.3) seconds Sodium (133-145) mmol/L Potassium (3.5-5.0) mmol/L Chloride (101-111) mmol/L Carbon Dioxide (22-32) mmol/L Anion Gap (2-11) mmol/L BUN (6-24) mg/dL Creatinine (0.51-0.95) mg/dL Est GFR ( Amer) (>60) Est GFR (Non-Af Amer) (>60) BUN/Creatinine Ratio (8-20) Glucose (70-100) mg/dL Lactic Acid 1.1 (0.5-2.0) mmol/L Calcium (8.6-10.3) mg/dL Total Bilirubin (0.2-1.0) mg/dL AST (13-39) U/L ALT (7-52) U/L Alkaline Phosphatase (34-104) U/L Total Creatine Kinase (10-223) U/L Troponin I (<0.04) ng/mL C-Reactive Protein (< 5.00) mg/L Total Protein (6.4-8.9) g/dL Albumin (3.2-5.2) g/dL Globulin (2-4) g/dL Albumin/Globulin Ratio (1-3) Microbiology and Other Data: Microbiology 07/29/16 13:55 Skin and Soft Tissue MRSA/MSSA (PCR - Final Toe - Right Big Mrsa Negative S.aureus Negative Gram Stain - Final Assess/Plan/Problems-Billing Assessment: R diabetic foot infection, osteomyelitis, bacteremia in a 50 yo F with hx of uncontrolled DM, non-compliance s/p right great toe amputation 07/29 - Patient Problems (1) Osteomyelitis Comment: s/p amputation 07/29 CTX and flagyl x 28d PICC placement pending MISHEL without vegitation (2) Bacteremia Comment: strep CTX as above (3) Type 2 diabetes mellitus Comment: Basal bolus insulin HbA1c is 13.4% (4) DVT prophylaxis Comment: HSQ Status and Disposition: Inpatient for osteomyelitis, bacteremia, likely will need surgical intervention
[2016-07-31] MEDS: Insulin GLARGINE(*) 1 UNITS UNIT SUBCUT SCH (18:06)
[2016-08-01] MEDS: metroNIDAZOLE IV 500 MG/100ML* 500 MG/100 ML BAG IVPB SCH ×3 (02:44→18:15)
[2016-08-01] MEDS: Heparin VIAL(*) 5000 UNITS/ML VIAL (FIVE THOUSAND) SUBCUT SCH ×3 (05:53→22:00)
[2016-08-01] MEDS: Insulin LISPRO* 1 UNITS UNIT SUBCUT SCH ×6 (08:54→18:16)
[2016-08-01] MEDS ORDERED: Insulin GLARGINE(*) 1 UNITS UNIT SUBCUT SCH (09:11)
--- NOTE | 2016-08-01 09:19 | PN ---
Subjective Date of Service: 08/01/16 Interval History: No pain. Appetite OK. No bowl c/o. Walks a little. Family History: Unchanged from Admission Social History: Unchanged from Admission Past Medical History: Unchanged from Admission Objective Active Medications: Acetaminophen (Tylenol Tab*) 650 mg PO Q4H PRN PRN Reason: FEVER/PAIN Last Admin: 07/30/16 17:33 Dose: 650 mg Dextrose (D50w Syringe 50 Ml*) 12.5 gm IV PUSH .FOR FS < 60 - SS PRN PRN Reason: FS < 60 Guaifenesin/Dextromethorphan (Robitussin Dm*) 5 ml PO Q6H PRN PRN Reason: COUGH Last Admin: 07/28/16 11:05 Dose: 5 ml Heparin Sodium (Porcine) (Heparin Vial(*)) 5,000 units SUBCUT Q8HR [facility] Last Admin: 08/01/16 05:53 Dose: 5,000 units Ceftriaxone Sodium 2 gm/ (Sodium Chloride) 100 mls @ 200 mls/hr IVPB Q12H [facility] Last Admin: 08/01/16 08:54 Dose: 200 mls/hr Metronidazole/Sodium Chloride (Flagyl 500 Mg Ivpb*) 500 mg in 100 mls @ 100 mls /hr IVPB Q8H [facility] Last Admin: 08/01/16 02:44 Dose: 100 mls/hr Insulin Glargine (Lantus(*)) 40 units SUBCUT QPM [facility] Insulin Human Lispro (Humalog*) 0 - 15 units SUBCUT AC [facility] PRN Reason: Protocol Last Admin: 08/01/16 08:54 Dose: 3 units Insulin Human Lispro (Humalog*) 0 - 10 units SUBCUT AC [facility] PRN Reason: Protocol Last Admin: 08/01/16 08:55 Dose: 2 units Morphine Sulfate (Morphine Inj (Syringe)*) 1 mg IV Q4H PRN PRN Reason: PAIN Last Admin: 07/30/16 03:21 Dose: 1 mg Oxycodone/Acetaminophen (Percocet 5/325 Tab*) 1 tab PO Q4H PRN PRN Reason: PAIN Last Admin: 08/01/16 02:53 Dose: 1 tab Vital Signs 07/31/16 07/31/16 07/31/16 10:19 11:33 15:40 Temperature 98.0 F Pulse Rate 71 77 Respiratory 18 16 Rate Blood Pressure (mmHg) O2 Sat by Pulse 96 95 Oximetry 07/31/16 07/31/16 07/31/16 19:50 20:00 22:44 Temperature 98.5 F 98.1 F Pulse Rate 78 72 Respiratory 17 17 17 Rate Blood Pressure 156/91 150/64 (mmHg) O2 Sat by Pulse 95 95 Oximetry 08/01/16 08/01/16 08/01/16 02:53 04:53 07:29 Temperature 98.1 F Pulse Rate 67 Respiratory 16 18 16 Rate Blood Pressure 152/73 (mmHg) O2 Sat by Pulse 95 Oximetry Oxygen Devices in Use Now: None Appearance: Alert, sitting on the edge of her bed. In good spirits. Looks comfortable. Eyes: No Scleral Icterus Ears/Nose/Mouth/Throat: Clear Oropharnyx, Mucous Membranes Moist Neck: NL Appearance and Movements; NL JVP, No Thyroid Enlargement, Masses Extremities: No Clubbing, Cyanosis, - - r Skin: No Rash or Ulcers - R foot heavily bandaged. , No Nodules or Sclerosis Neurological: Alert and Oriented x 3, NL Sensation, - Result Diagrams: 07/29/16 06:56 07/29/16 06:56 Additional Lab and Data: Lab Results 07/27/16 07/27/16 07/27/16 Range/Units 15:35 15:35 15:35 WBC 16.1 H (3.5-10.8) 10^3/ul RBC 4.84 (4.0-5.4) 10^6/ul Hgb 12.4 (12.0-16.0) g/dl Hct 39 (35-47) % MCV 80 (80-97) fL MCH 26 L (27-31) pg MCHC 32 (31-36) g/dl RDW 14 (10.5-15) % Plt Count 244 (150-450) 10^3/ul MPV 10 (7.4-10.4) um3 Immature Gran % (Auto) 5 (0-9) % Absolute Neuts (auto) 13.7 H (1.5-7.7) 10^3/ul Absolute Lymphs (auto) 1.0 (1.0-4.8) 10^3/ul Absolute Monos (auto) 1.3 H (0-0.8) 10^3/ul Absolute Eos (auto) 0 (0-0.6) 10^3/ul Absolute Basos (auto) 0.1 (0-0.2) 10^3/ul Absolute Nucleated RBC 0.01 10^3/ul Neutrophils % 81 (38-83) % Band Neutrophils % 5 (0-8) % Lymphocytes % 5 L (25-47) % Monocytes % 8 (0-13) % Eosinophils % 1 (0-6) % Normal RBC Morphology Normal (Normal) Hem Pathologist Commnt Pending INR (Anticoag Therapy) 1.03 (0.89-1.11) APTT 17.6 L (26.0-36.3) seconds Sodium 126 L (133-145) mmol/L Potassium 4.0 (3.5-5.0) mmol/L Chloride 92 L (101-111) mmol/L Carbon Dioxide 26 (22-32) mmol/L Anion Gap 8 (2-11) mmol/L BUN 20 (6-24) mg/dL Creatinine 0.72 (0.51-0.95) mg/dL Est GFR ( Amer) 110.3 (>60) Est GFR (Non-Af Amer) 85.7 (>60) BUN/Creatinine Ratio 27.8 H (8-20) Glucose 353 H (70-100) mg/dL Lactic Acid (0.5-2.0) mmol/L Calcium 8.7 (8.6-10.3) mg/dL Total Bilirubin 0.70 (0.2-1.0) mg/dL AST 56 H (13-39) U/L ALT 60 H (7-52) U/L Alkaline Phosphatase 120 H (34-104) U/L Total Creatine Kinase 46 (10-223) U/L Troponin I 0.09 H* (<0.04) ng/mL C-Reactive Protein 220.53 H (< 5.00) mg/L Total Protein 7.2 (6.4-8.9) g/dL Albumin 2.6 L (3.2-5.2) g/dL Globulin 4.6 H (2-4) g/dL Albumin/Globulin Ratio 0.6 L (1-3) 07/27/ Range/Units 15:51 WBC (3.5-10.8) 10^3/ul RBC (4.0-5.4) 10^6/ul Hgb (12.0-16.0) g/dl Hct (35-47) % MCV (80-97) fL MCH (27-31) pg MCHC (31-36) g/dl RDW (10.5-15) % Plt Count (150-450) 10^3/ul MPV (7.4-10.4) um3 Immature Gran % (Auto) (0-9) % Absolute Neuts (auto) (1.5-7.7) 10^3/ul Absolute Lymphs (auto) (1.0-4.8) 10^3/ul Absolute Monos (auto) (0-0.8) 10^3/ul Absolute Eos (auto) (0-0.6) 10^3/ul Absolute Basos (auto) (0-0.2) 10^3/ul Absolute Nucleated RBC 10^3/ul Neutrophils % (38-83) % Band Neutrophils % (0-8) % Lymphocytes % (25-47) % Monocytes % (0-13) % Eosinophils % (0-6) % Normal RBC Morphology (Normal) Hem Pathologist Commnt INR (Anticoag Therapy) (0.89-1.11) APTT (26.0-36.3) seconds Sodium (133-145) mmol/L Potassium (3.5-5.0) mmol/L Chloride (101-111) mmol/L Carbon Dioxide (22-32) mmol/L Anion Gap (2-11) mmol/L BUN (6-24) mg/dL Creatinine (0.51-0.95) mg/dL Est GFR ( Amer) (>60) Est GFR (Non-Af Amer) (>60) BUN/Creatinine Ratio (8-20) Glucose (70-100) mg/dL Lactic Acid 1.1 (0.5-2.0) mmol/L Calcium (8.6-10.3) mg/dL Total Bilirubin (0.2-1.0) mg/dL AST (13-39) U/L ALT (7-52) U/L Alkaline Phosphatase (34-104) U/L Total Creatine Kinase (10-223) U/L Troponin I (<0.04) ng/mL C-Reactive Protein (< 5.00) mg/L Total Protein (6.4-8.9) g/dL Albumin (3.2-5.2) g/dL Globulin (2-4) g/dL Albumin/Globulin Ratio (1-3) Microbiology and Other Data: Microbiology 07/29/16 13:55 Skin and Soft Tissue MRSA/MSSA (PCR - Final Toe - Right Big Mrsa Negative S.aureus Negative Gram Stain - Final Assess/Plan/Problems-Billing Assessment: R diabetic foot infection, osteomyelitis, bacteremia in a 50 yo F with hx of uncontrolled DM, non-compliance s/p right great toe amputation 07/29 - Patient Problems (1) Osteomyelitis Current Visit: Yes Status: Acute Code(s): M86.9 - OSTEOMYELITIS, UNSPECIFIED SNOMED Code(s): 52167676 Comment: s/p R first ray amputation 07/29 CTX and flagyl x 28d PICC placement pending MISHEL without vegitation (2) Type 2 diabetes mellitus Current Visit: Yes Status: Acute Priority: Medium Onset Date: 03/16/14 Comment: Basal bolus insulin HbA1c is 13.4%--She did not take her prescribed insulin for past year, only restarted it a few days before this admission. She states "I don't like needle , but I gues I'll have to take insulin now." Increase Lantus to 40 U daily. Might do better with outpt special educator support. (3) Tobacco abuse Current Visit: Yes Status: Acute Code(s): Z72.0 - TOBACCO USE SNOMED Code( s): 725589126 Comment: Pt advised toq uit smoking and avoid second hand smoke. I note that her also smokes. (4) Morbid obesity Current Visit: Yes Status: Acute Code(s): E66.01 - MORBID (SEVERE) OBESITY DUE TO EXCESS CALORIES SNOMED Code(s): 294693813 Comment: BMI 51.7. Status and Disposition: Inpatient for osteomyelitis, bacteremia, likely will need surgical intervention
--- NOTE | 2016-08-01 11:43 | PN ---
Progress Note - Progress Note SOAP: Subjective: [Pt doing well. No complaints of pain. Denies CP/SOB/calf pain/dizziness.] Objective: [A and O x 3, NAD Seated on edge of bed with family in room. R foot dressing/splint C/D/I, no drainage, no odor. 2-4 toes moving well. Cultures grew strep agalactiae, and strep dysgalac Vital Signs: Temp Pulse Resp BP Pulse Ox 98.1 F 67 16 152/73 95 08/01/16 07:29 08/01/16 07:29 08/01/16 07:29 08/01/16 07:29 08/01/16 07:29 Laboratory Results - last 24 hr 07/31/16 07/31/16 07/31/16 11:36 16:38 22:20 POC Glucose (mg/dL) 189 H 211 H 208 H 08/01/16 07:47 POC Glucose (mg/dL) 170 H ] Assessment: [50 you female s/p R great toe amputation POD # 3] Plan: [PT/OT Awaiting PICC line placement Dressing to be changed tomorrow by Dr. Lucero Possible D/C tomorrow]
[2016-08-02] MEDS: metroNIDAZOLE IV 500 MG/100ML* 500 MG/100 ML BAG IVPB SCH (02:16)
[2016-08-02 03:58] VITALS: BP 149/78
[2016-08-02] MEDS: Heparin VIAL(*) 5000 UNITS/ML VIAL (FIVE THOUSAND) SUBCUT SCH ×2 (05:44→13:28)
[2016-08-02] MEDS: Insulin LISPRO* 1 UNITS UNIT SUBCUT SCH ×2 (08:54)
[2016-08-02] MEDS ORDERED: Insulin LISPRO* 1 UNITS UNIT SUBCUT SCH ×2 (09:11→11:28)
--- NOTE | 2016-08-02 11:13 | DCNOTE ---
Subjective Date of Service: 08/02/16 Interval History: No pain in foot or elsewhere. No new cx/o, anxious to go home. Family History: Unchanged from Admission Social History: Unchanged from Admission Past Medical History: Unchanged from Admission Objective Active Medications: Acetaminophen (Tylenol Tab*) 650 mg PO Q4H PRN PRN Reason: FEVER/PAIN Last Admin: 07/30/16 17:33 Dose: 650 mg Dextrose (D50w Syringe 50 Ml*) 12.5 gm IV PUSH .FOR FS < 60 - SS PRN PRN Reason: FS < 60 Guaifenesin/Dextromethorphan (Robitussin Dm*) 5 ml PO Q6H PRN PRN Reason: COUGH Last Admin: 07/28/16 11:05 Dose: 5 ml Heparin Sodium (Porcine) (Heparin Vial(*)) 5,000 units SUBCUT Q8HR [facility] Last Admin: 08/02/16 05:44 Dose: 5,000 units Heparin Sodium (Porcine) (Heparin Flush Picc/Ml/Cvc(*)) 1 - 3 ml FLUSH 0600, 1800 RICIK PRN Reason: Protocol Ceftriaxone Sodium 2 gm/ (Sodium Chloride) 100 mls @ 200 mls/hr IVPB Q24H [facility] Insulin Glargine (Lantus(*)) 40 units SUBCUT QPM [facility] Last Admin: 08/01/16 18:15 Dose: 40 units Insulin Human Lispro (Humalog*) 0 - 15 units SUBCUT AC RICKI PRN Reason: Protocol Last Admin: 08/02/16 08:54 Dose: 2 units Insulin Human Lispro (Humalog*) 0 - 10 units SUBCUT AC RICKI PRN Reason: Protocol Metronidazole (Flagyl Tab*) 500 mg PO TID [facility] Morphine Sulfate (Morphine Inj (Syringe)*) 1 mg IV Q4H PRN PRN Reason: PAIN Last Admin: 07/30/16 03:21 Dose: 1 mg Oxycodone/Acetaminophen (Percocet 5/325 Tab*) 1 tab PO Q4H PRN PRN Reason: PAIN Last Admin: 08/01/16 02:53 Dose: 1 tab Vital Signs 08/01/16 08/01/16 08/01/16 11:48 13:42 16:10 Temperature 97.8 F 98.3 F Pulse Rate 69 72 Respiratory 16 20 17 Rate Blood Pressure 163/91 142/79 (mmHg) O2 Sat by Pulse 95 95 Oximetry 08/01/16 08/01/16 08/02/16 19:23 19:49 00:16 Temperature 98.4 F 98.0 F Pulse Rate 74 70 Respiratory 16 17 Rate Blood Pressure 152/82 152/80 (mmHg) O2 Sat by Pulse 95 96 Oximetry 08/02/16 08/02/16 00:33 03:47 Temperature 98.0 F Pulse Rate 72 Respiratory 16 Rate Blood Pressure 149/78 (mmHg) O2 Sat by Pulse 94 93 Oximetry Oxygen Devices in Use Now: None Appearance: Alert, sitting on the edge of her bed. In good spirits. Looks comfortable. Neurological: Alert and Oriented x 3, NL Sensation Result Diagrams: 07/29/16 06:56 07/29/16 06:56 Additional Lab and Data: Lab Results 07/27/16 07/27/16 07/27/16 Range/Units 15:35 15:35 15:35 WBC 16.1 H (3.5-10.8) 10^3/ul RBC 4.84 (4.0-5.4) 10^6/ul Hgb 12.4 (12.0-16.0) g/dl Hct 39 (35-47) % MCV 80 (80-97) fL MCH 26 L (27-31) pg MCHC 32 (31-36) g/dl RDW 14 (10.5-15) % Plt Count 244 (150-450) 10^3/ul MPV 10 (7.4-10.4) um3 Immature Gran % (Auto) 5 (0-9) % Absolute Neuts (auto) 13.7 H (1.5-7.7) 10^3/ul Absolute Lymphs (auto) 1.0 (1.0-4.8) 10^3/ul Absolute Monos (auto) 1.3 H (0-0.8) 10^3/ul Absolute Eos (auto) 0 (0-0.6) 10^3/ul Absolute Basos (auto) 0.1 (0-0.2) 10^3/ul Absolute Nucleated RBC 0.01 10^3/ul Neutrophils % 81 (38-83) % Band Neutrophils % 5 (0-8) % Lymphocytes % 5 L (25-47) % Monocytes % 8 (0-13) % Eosinophils % 1 (0-6) % Normal RBC Morphology Normal (Normal) Hem Pathologist Commnt Pending INR (Anticoag Therapy) 1.03 (0.89-1.11) APTT 17.6 L (26.0-36.3) seconds Sodium 126 L (133-145) mmol/L Potassium 4.0 (3.5-5.0) mmol/L Chloride 92 L (101-111) mmol/L Carbon Dioxide 26 (22-32) mmol/L Anion Gap 8 (2-11) mmol/L BUN 20 (6-24) mg/dL Creatinine 0.72 (0.51-0.95) mg/dL Est GFR ( Amer) 110.3 (>60) Est GFR (Non-Af Amer) 85.7 (>60) BUN/Creatinine Ratio 27.8 H (8-20) Glucose 353 H (70-100) mg/dL Lactic Acid (0.5-2.0) mmol/L Calcium 8.7 (8.6-10.3) mg/dL Total Bilirubin 0.70 (0.2-1.0) mg/dL AST 56 H (13-39) U/L ALT 60 H (7-52) U/L Alkaline Phosphatase 120 H (34-104) U/L Total Creatine Kinase 46 (10-223) U/L Troponin I 0.09 H* (<0.04) ng/mL C-Reactive Protein 220.53 H (< 5.00) mg/L Total Protein 7.2 (6.4-8.9) g/dL Albumin 2.6 L (3.2-5.2) g/dL Globulin 4.6 H (2-4) g/dL Albumin/Globulin Ratio 0.6 L (1-3) 07/27/16 Range/Units 15:51 WBC (3.5-10.8) 10^3/ul RBC (4.0-5.4) 10^6/ul Hgb (12.0-16.0) g/dl Hct (35-47) % MCV (80-97) fL MCH (27-31) pg MCHC (31-36) g/dl RDW (10.5-15) % Plt Count (150-450) 10^3/ul MPV (7.4-10.4) um3 Immature Gran % (Auto) (0-9) % Absolute Neuts (auto) (1.5-7.7) 10^3/ul Absolute Lymphs (auto) (1.0-4.8) 10^3/ul Absolute Monos (auto) (0-0.8) 10^3/ul Absolute Eos (auto) (0-0.6) 10^3/ul Absolute Basos (auto) (0-0.2) 10^3/ul Absolute Nucleated RBC 10^3/ul Neutrophils % (38-83) % Band Neutrophils % (0-8) % Lymphocytes % (25-47) % Monocytes % (0-13) % Eosinophils % (0-6) % Normal RBC Morphology (Normal) Hem Pathologist Commnt INR (Anticoag Therapy) (0.89-1.11) APTT (26.0-36.3) seconds Sodium (133-145) mmol/L Potassium (3.5-5.0) mmol/L Chloride (101-111) mmol/L Carbon Dioxide (22-32) mmol/L Anion Gap (2-11) mmol/L BUN (6-24) mg/dL Creatinine (0.51-0.95) mg/dL Est GFR ( Amer) (>60) Est GFR (Non-Af Amer) (>60) BUN/Creatinine Ratio (8-20) Glucose (70-100) mg/dL Lactic Acid 1.1 (0.5-2.0) mmol/L Calcium (8.6-10.3) mg/dL Total Bilirubin (0.2-1.0) mg/dL AST (13-39) U/L ALT (7-52) U/L Alkaline Phosphatase (34-104) U/L Total Creatine Kinase (10-223) U/L Troponin I (<0.04) ng/mL C-Reactive Protein (< 5.00) mg/L Total Protein (6.4-8.9) g/dL Albumin (3.2-5.2) g/dL Globulin (2-4) g/dL Albumin/Globulin Ratio (1-3) Microbiology and Other Data: Microbiology 07/29/16 13:55 Skin and Soft Tissue MRSA/MSSA (PCR - Final Toe - Right Big Mrsa Negative S.aureus Negative Gram Stain - Final Assess/Plan/Problems-Billing Assessment: R diabetic foot infection, osteomyelitis, bacteremia in a 50 yo F with hx of uncontrolled DM, non-compliance s/p right great toe amputation 07/29 - Patient Problems (1) Osteomyelitis Current Visit: Yes Status: Acute Code(s): M86.9 - OSTEOMYELITIS, UNSPECIFIED SNOMED Code(s): 02009129 Comment: s/p R first ray amputation 07/29 CTX and flagyl x 28d PICCline in place. MISHEL without vegitation. Discussed with Dr. Velazquez. (2) Type 2 diabetes mellitus Current Visit: Yes Status: Acute Priority: Medium Onset Date: 03/16/14 Comment: Basal bolus insulin HbA1c is 13.4%--She did not take her prescribed insulin for past year, only restarted it a few days before this admission. She states "I don't like needle , but I gues I'll have to take insulin now." Continue Lantus 40 U daily, rx 6 U short-acting insulin ac. Pt states she will fup with outpt certified diabetes educator. (3) Tobacco abuse Current Visit: Yes Status: Acute Code(s): Z72.0 - TOBACCO USE SNOMED Code( s): 316910518 Comment: Pt advised to quit smoking and avoid second hand smoke. I note that her also smokes. (4) Morbid obesity Current Visit: Yes Status: Acute Code(s): E66.01 - MORBID (SEVERE) OBESITY DUE TO EXCESS CALORIES SNOMED Code(s): 068234986 Comment: BMI 51.7. Status and Disposition: Inpatient for osteomyelitis, bacteremia, likely will need surgical intervention
--- NOTE | 2016-08-02 11:37 | PN ---
Progress Note - Progress Note Note: Time spent on discharge 45 minutes.
[2016-08-02] MEDS ORDERED: metroNIDAZOLE TAB* 250 MG PO SCH (14:00)
--- NOTE | 2016-08-02 23:49 | DS ---
DISCHARGE SUMMARY: DATE OF ADMISSION: 07/27/16 DATE OF DISCHARGE: 08/02/16 HOSPITAL COURSE: This 50-year-old woman presented with complaining of a right great toe bleeding. She also had 4 or 5 days of fever and chills. The history is detailed in a dictated admission note. I note she was very noncompliant with her insulin therapy and basically did not have medical care or take any hyperglycemic medications including her prescribed insulin for about a year. When she started having trouble with her foot, she started taking Lantus 35 units daily for the few days before she was admitted. Her right great toe was noted be edematous within the necrotic area at the bottom of the toe. The patient received piperacillin, tazobactam, and vancomycin initially and was changed to ceftriaxone and metronidazole. Dr. Lucero did a first ray amputation of the right foot during this hospital stay. Postoperative course was uneventful. She had almost no pain within 24 hours following the operation. She was seen by Physical Therapy and was prescribed a walker. She was started on 35 units of Lantus. I increased this to 40 units. We added sliding scale during , but I think it is a bit much for her to cope with all at once and I am going to give her fixed dose with each meals as she was getting pretty much that dose anyway. She will follow up with Dr. Lucero, the museum educator, and her primary care physician. FINAL DIAGNOSES: 1. Osteomyelitis of right toe with positive blood cultures for strep. 2. Diabetes mellitus. 3. Tobacco abuse. 4. Morbid obesity. DISCHARGE MEDICATIONS: 1. Glargine insulin 40 units every evening. 2. Metronidazole 500 mg t.i.d. for 28 days. 3. NovoLog FlexPen 6 units with each meal. 4. Ceftriaxone 2 g IV daily for 28 days. [id number]/[facility] #: [id number] [facility]
== END 2016-08-02 13:10 | disposition home or self-care (01) | DRG 854 ==
LOC: ED 14:44 → MED 17:16 → MEDTELE 19:29 → MED 07-29 08:16
PROVIDERS: ADMIT Hospitalist; ATTEND Internal Medicine
PROC: 0Y6P0Z0 Detachment at Right 1st Toe, Complete, Open Approach (ICD-10-PCS; principal; 2016-07-28)
DX: A40.1 Sepsis due to streptococcus, group B (principal); M86.171 Other acute osteomyelitis, right ankle and foot; E11.52 Type 2 diabetes mellitus with diabetic peripheral angiopathy with gangrene; E11.42 Type 2 diabetes mellitus with diabetic polyneuropathy; E87.1 Hypo-osmolality and hyponatremia; L03.115 Cellulitis of right lower limb; M84.474A Pathological fracture, right foot, initial encounter for fracture; Z68.43 Body mass index [BMI] 50.0-59.9, adult; E11.621 Type 2 diabetes mellitus with foot ulcer; E11.69 Type 2 diabetes mellitus with other specified complication; E11.65 Type 2 diabetes mellitus with hyperglycemia; B95.1 Streptococcus, group B, as the cause of diseases classified elsewhere; L97.514 Non-pressure chronic ulcer of other part of right foot with necrosis of bone; F17.210 Nicotine dependence, cigarettes, uncomplicated; E66.01 Morbid (severe) obesity due to excess calories; J98.2 Interstitial emphysema; R74.8 Abnormal levels of other serum enzymes; E86.0 Dehydration; Z91.14 Patient's other noncompliance with medication regimen; Z82.49 Family history of ischemic heart disease and other diseases of the circulatory system; Z83.3 Family history of diabetes mellitus
CPT/HCPCS: 36415; 71010; 80048; 80053; 82550; 83036; 83605; 84484; 85025; 85060; 85610; 85730; 86140; 87040; 87070; 87073; 87077; 87184; 87186; 87205; 87640; 87641; 93312; 93325; 93922; 99213; A9270-GY; C1751; G0463; J0696; J1644; J2001; J2250; J2270; J2310; J2543; J3010; J3370

== ENCOUNTER 2017-02-03 08:06 | Inpatient (IN) | payer OTHER ==
[2017-02-03] MEDS ORDERED: Senna TAB PO PRN (17:48)
[2017-02-03] MEDS ORDERED: Magnesium Hydroxide LIQ* 30 ML UDC PO PRN (17:48)
[2017-02-03] MEDS ORDERED: Warfarin TAB(*) 10 MG PO ONE (18:00)
[2017-02-03] MEDS ORDERED: Warfarin TAB(*) 2.5 MG PO ONE (18:00)
[2017-02-03] MEDS ORDERED: metFORMIN* 500 MG TAB PO ONE (18:01)
[2017-02-03] MEDS ORDERED: Dextrose 50% Syringe 50 ML* 25 GM/50 ML SYRINGE IV PUSH PRN (18:13)
[2017-02-03] MEDS: Metoprolol Tartrate TAB* 25 MG PO SCH (18:30)
[2017-02-03] MEDS: Docusate CAP* 100 MG PO SCH (21:17)
[2017-02-03] MEDS: Heparin VIAL(*) 5000 UNITS/ML VIAL (FIVE THOUSAND) SUBCUT SCH (21:58)
[2017-02-03] MEDS: Insulin LISPRO* 1 UNITS UNIT SUBCUT SCH (21:58)
[2017-02-03] MEDS: Insulin GLARGINE(*) 1 UNITS UNIT SUBCUT SCH (21:59)
--- NOTE | 2017-02-04 00:50 | HP ---
ADMISSION HISTORY AND PHYSICAL: DATE OF ADMISSION: 02/03/17 REASON FOR ADMISSION: Bilateral strokes; aortic valve replacement; endocarditis. HISTORY OF ILLNESS: Karma Mansfield is a 51-year-old female. She has a medical history significant for diabetes as well as obesity and obstructive sleep apnea. The patient had amputation of the first ray of her right foot done in August 2016. The patient presented to the ER at [facility] on 12/14/16 reporting 2 to 3-day history of lethargy and fever. In the emergency room, she was noted to have a white blood cell count of 20,000. It was felt that she had sepsis most likely from the wound in her right foot. She was admitted to the intensive care unit. She received antibiotics. She received fluid resuscitation. Osteomyelitis of the right foot was proven with Orthopedic probing of the great toe to the metatarsal. She had an echocardiogram in the intensive care unit revealing severe aortic insufficiency with campo valve infected endocarditis with an abscess of the noncoronary cusp. She was maintained on antibiotics and transferred to [facility] in [place]. In [place], she was continued on antibiotics. On 12/22/16, she was noted to have acute mental status changes with right-sided weakness and garbled speech. She had an MRI of her brain that showed multiple areas of acute ischemia in both hemispheres. Her hemiparesis improved with time, but she remained confused. She also developed acute kidney injury while in the hospital. Narcotic was stopped. On 12/29/16, she went into paroxysmal AFib. She was started on warfarin. She continued to receive IV antibiotics. She was transferred to the [facility] on 01/03/17 for a second opinion regarding surgery. She was taken to the operating room on 01/13/17 for an aortic valve replacement and an aortic root replacement. Her postop course was complicated by coagulopathy regarding platelets, FFPs, and red blood cell transfusion. She also developed hypotension requiring pressors and atrial fibrillation with a rapid ventricular response. She had to be cardioverted on 01/14/17 because of hemodynamic instability. She was put on amiodarone and beta-galo. As mentioned, she was already on warfarin and this was continued. The patient's diabetes, she was put on a combination of Lantus and lispro insulin. It was noted that during her hospitalization, she was noted to have a hemoglobin A1c of 8.7 indicating she may have been noncompliant with diabetes treatments. As far as the wound on her right foot, she was seen by Podiatry at the [facility]. They were doing wet-to-dry dressings with Dakin's solution. The patient did have diarrhea, which was felt to be antibiotic related. Because the patient is weak and needs Physical Therapy, Occupational Therapy, and Speech Therapy, she was felt to require placement in an inpatient rehab. She is now being admitted for inpatient rehab, so she may return to independent living. PAST MEDICAL HISTORY: Significant for obesity, obstructive sleep apnea. She has a history of diabetes mellitus. She has a history of hypertension and she obviously has osteomyelitis of the right foot. She has had a hysterectomy and a cholecystectomy as well. CURRENT MEDICATIONS: Include: 1. Amiodarone. 2. Aspirin. 3. Ceftriaxone. 4. Lasix. 5. Heparin. 6. Lantus insulin. 7. Lispro insulin. 8. Glucophage. 9. Lopressor. 10. Prilosec. 11. Coumadin. ALLERGIES: No known drug allergies. SOCIAL HISTORY: She is a former smoker. Rarely drinks alcohol. She lives with her in a trailer with 3 steps to enter. REVIEW OF SYSTEMS: She does have diarrhea as mentioned. PHYSICAL EXAMINATION VITAL SIGNS: The patient's temperature is 97.5, blood pressure is 118/79, pulse is 78, respirations 20. HEENT: Her extraocular movements appeared to be intact. NECK: Supple. LUNGS: Sounded clear to auscultation. HEART: Sounds were regular. S1 and S2 were audible. ABDOMEN: Soft and nontender. EXTREMITIES: Her right foot has an amputation of the right toe and right first ray. Peripheral pulses were intact. NEUROLOGIC: She was awake, alert. Her orientation to day and night was limited. Her memory seemed to be impaired. Muscle strength is about 4/5 throughout. FUNCTIONAL EXAM: She is dependent for transfers. ASSESSMENT: Bilateral CVAs following endocarditis. She is status post an aortic valve replacement and aortic root replacement. PLAN: Integrate her into a comprehensive and therapeutic rehab program with the following goals: 1. Physical Therapy will see the patient. They are going to work on functional transfer training, ambulation training with a walker. 2. Occupational Therapy will see the patient, work on her activities of daily living including toileting and toilet transfers. 3. Speech Therapy will see the patient, work on improving her orientation. 4. Coumadin and heparin for DVT prophylaxis. 5. For atrial fibrillation, we will continue amiodarone as well as Coumadin. 6. Diabetes. We are going to continue Lantus, lispro as well as Glucophage. Per the [facility], we are going to start with Glucophage at dinner. We will increase to twice a day if she tolerates it. 7. For secondary stroke prevention, we are going to continue Coumadin as well as aspirin and her antibiotics. 8. Continue ceftriaxone until 02/24/17. 9. resident services director will be closely involved to make sure that any services and equipment that the patient requires are in place prior to discharge. 10. SSRIs as indicated. 11. Family training as appropriate. 12. Home with appropriate services. ESTIMATED LENGTH OF STAY: Four weeks. [id number]/[facility] #: [id number] [facility]
[2017-02-04] MEDS: Metoprolol Tartrate TAB* 25 MG PO SCH ×4 (03:01→16:19)
[2017-02-04] MEDS: Heparin VIAL(*) 5000 UNITS/ML VIAL (FIVE THOUSAND) SUBCUT SCH ×3 (05:25→21:45)
[2017-02-04] MEDS: Omeprazole CAP* 20 MG PO SCH (05:25)
[2017-02-04 05:42] LABS: ABS Basophils 0 10^3/ul (0-0.2); ABS Eosinophils 0.4 10^3/ul (0-0.6); ABS Lymphocytes 2.2 10^3/ul (1.0-4.8); ABS Monocytes 0.8 10^3/ul (0-0.8); ABS Neutrophils 4.2 10^3/ul (1.5-7.7); ABS Nucleated RBC 0.01 10^3/ul; Eosinophil % 5.6 % (0-6); Hematocrit 35 % (35-47); Hemoglobin 11.4 g/dl (12.0-16.0); Lymphocyte % 28.7 % (25-47); Mean Corpuscular HGB Conc 32 g/dl (31-36); Mean Corpuscular Hemoglobin 26 pg (27-31); Mean Corpuscular Volume 80 fL (80-97); Mean Platelet Volume 8 um3 (7.4-10.4); Nucleated Red Blood Cells % 0.1; Platelet Count 427 10^3/ul (150-450); Red Blood Count 4.42 10^6/ul (4.0-5.4); Red Cell Distribution Width 21 % (10.5-15); White Blood Count 7.6 10^3/ul (3.5-10.8)
[2017-02-04 05:47] LABS: INR 1.72 (0.77-1.02)
[2017-02-04 05:57] LABS: EGFR Non-African American 50.3 (>60)
[2017-02-04] MEDS: Acetaminophen TAB* 325 MG PO PRN (06:13)
[2017-02-04] MEDS: cefTRIAXone(*) 2 GM in NS 0.9% 100 ML* 100 ML IVPB SCH (08:37)
[2017-02-04] MEDS: Insulin LISPRO* 1 UNITS UNIT SUBCUT SCH ×4 (08:38→21:44)
[2017-02-04] MEDS: Docusate CAP* 100 MG PO SCH (08:39)
[2017-02-04] MEDS: Lactobacillus Acidophilu (GG)* 1 CAP CAP PO SCH (08:39)
[2017-02-04] MEDS: Amiodarone TAB* 200 MG PO SCH (08:40)
[2017-02-04] MEDS: Aspirin EC Low Dose* 81 MG TAB.EC PO SCH (08:40)
[2017-02-04] MEDS: Furosemide TAB* 40 MG PO SCH (08:40)
[2017-02-04] MEDS ORDERED: Docusate CAP* 100 MG PO PRN (09:08)
--- NOTE | 2017-02-04 12:47 | PMRUTEAM ---
PMRU: Goals Current Status: Physical therapy: Current status bed mobility - supervision transfer - total assist ambulation - no tested Occupational Therapy: Current Status Upper Body Dressing Mod Assist Lower Body Dressing Max Asst Bathing Max Asst,2 Person Assist Toileting Total Assist Toilet Transfer Max Asst,2 Person Assist Shower Transfer Max Asst,2 Person Assist Eating Min Assist Speech therapy: current status - evaluation in progress Goals: Physical therapy: Initial Goals independent bed mobility and transfers using a rolling walker. Ambulation 50ft with rolling walker. 5 stairs with 2 rails. Occupational Therapy: Initial Goals Goals to be Completed in (Days 14-21 days ) Upper Body Bathing Routine Modified Independent with Lower Body Bathing Routine Modified Independent with Upper Body Dressing Routine Modified Independent with Lower Body Dressing Routine Modified Independent with Toilet Hygeine and Clothing Modified Independent with Management Routine Toilet Transfer Routine Modified Independent with Tub Transfer Routine Modified Independent with Functional Transfers for ADL Modified Independent with Grooming Routine Modified Independent with Feeding Routine Independent Speech therapy: initial goals to be determined. Care Plan: Care Plan Cardiovascular- Improve/Maintain Start: 02/04/17 10:46 Freq: QSHIFT Status: Active Target: Protocol: Activity Type Activity Date Activity User E-Sign Co-Sign Detail Recorded Client Recorded Date Recorded By Document 02/04/17 10:48 [id number] 02/04/17 10:53 [id number] 02/04/17 10:48 PMRU Outcome: Cardiovascular Vital Signs q Shift for 48hrs Then BID Yes Daily Weight Ordered No Current Cardiovascular Outcome/Goal Maintain/ Achieve Baseline HR, BP , Perfusion Free of Abnormal Cardiac Symptoms Progression Toward Outcome/Goal Progressing Coping/Psych-Improve/Maintain Start: 02/04/17 10:46 Freq: QSHIFT Status: Active Target: Protocol: Activity Type Activity Date Activity User E-Sign Co-Sign Detail Recorded Client Recorded Date Recorded By Document 02/04/17 10:48 [id number] 02/04/17 10:53 [id number] 02/04/17 10:48 PMRU Outcome: Coping/Psychosocial Coping Outcome/Goals Verbalization of Acceptance of Rehab Admit Verbalization of Sense of Control Over Health Status Utilization of Appropriate Problem Solving Techniques Willingness to Participate in Treatment Plan and Basic Needs Utilization of Available Support Systems Psychosocial Outcome/Goals Maintain/ Improve Emotional Health Demonstrates Knowledge of Healthy Coping Mechanisms Available Cooperate/ Participate in Plan Progression Toward Outcome/Goals - Progressing Coping Progression Toward Outcome/Goals - Progressing Psychosocial DVT Prophylaxis- Improve/Maintain Start: 02/04/17 10:46 Freq: QSHIFT Status: Active Target: Protocol: Activity Type Activity Date Activity User E-Sign Co-Sign Detail Recorded Client Recorded Date Recorded By Document 02/04/17 10:48 [id number] 02/04/17 10:53 [id number] 02/04/17 10:48 PMRU Outcome: DVT Prophylaxis Outcome/Goals Remains Free of DVT Complies with DVT Prophylaxis /Treatment Demonstrates Knowledge of DVT Prevention/ Treatment Progression Toward Outcome/Goals Progressing Education-Improve/Maintain Start: 02/04/17 10:46 Freq: QSHIFT Status: Active Target: Protocol: Activity Type Activity Date Activity User E-Sign Co-Sign Detail Recorded Client Recorded Date Recorded By Document 02/04/17 10:48 [id number] 02/04/17 10:53 [id number] 02/04/17 10:48 PMRU Outcome: Education Outcome/Goals Demonstrates Skills Encourage Questions Progression Toward Outcome/Goals Progressing /GI-Improve/Maintain Start: 02/04/17 10:46 Freq: QSHIFT Status: Active Target: Protocol: Activity Type Activity Date Activity User E-Sign Co-Sign Detail Recorded Client Recorded Date Recorded By Document 02/04/17 10:48 [id number] 02/04/17 10:53 [id number] 02/04/17 10:48 PMRU Outcome: Genitourinary/ Gastrointestinal Genitourinary- Outcome/Goals Maintain/ Achieve Urinary Continence Remain Free of Hospital- Acquired UTI Gastrointestinal-Outcome/Goals Maintain/ Achieve Bowel Regularity in Accordance with Pt's Baseline Other Outcome/Goals incontinent of bm and urine this am Progression Toward Outcome/Goals - Progressing Progression Toward Outcome/Goals - GI Progressing Medication Administration Start: 02/04/17 10:46 Freq: QSHIFT Status: Active Target: Protocol: Activity Type Activity Date Activity User E-Sign Co-Sign Detail Recorded Client Recorded Date Recorded By Document 02/04/17 10:48 [id number] 02/04/17 10:53 [id number] 02/04/17 10:48 PMRU Outcome: Medication Administration Assess Patient Knowledge/Teach Med Yes Education for all Meds Outcome/Goals Patient Independent with Medication Administration at Home Other Outcome/Goals will need reinforcement to take medications as ordered Progression Towards Outcome/Goals Progressing Is Patient Going Home on Lovenox? No Metabolic Status- Improve/Maintain Start: 02/04/17 10:46 Freq: QSHIFT Status: Active Target: Protocol: Activity Type Activity Date Activity User E-Sign Co-Sign Detail Recorded Client Recorded Date Recorded By Document 02/04/17 10:48 [id number] 02/04/17 10:53 [id number] 02/04/17 10:48 PMRU Outcome: Metabolic Status Have Fingersticks Been Ordered Yes Fingerstick Order Frequency AC & HS Outcome/Goals Maintain/ Improve Metabolic Status Demonstrate Knowledge of Prevention/ Treatment of Metabolic Imbalances Other Outcome/Goals patient not compliant with doing fingersticks at home. will need reinforcement Progression Toward Outcome/Goals Progressing Respiratory - Improve/Maintain Start: 02/04/17 10:46 Freq: QSHIFT Status: Active Target: Protocol: Activity Type Activity Date Activity User E-Sign Co-Sign Detail Recorded Client Recorded Date Recorded By Document 02/04/17 10:48 [id number] 02/04/17 10:53 [id number] 02/04/17 10:48 PMRU Outcome: Respiratory Does Patient Have a Trach No Outcome/Goals Maintain/ Improve Activity Tolerance Prevent Pneumonia/ Atelectasis Progression Toward Outcome/Goals Progressing Safety- Improve/Maintain Start: 02/04/17 10:46 Freq: QSHIFT Status: Active Target: Protocol: Activity Type Activity Date Activity User E-Sign Co-Sign Detail Recorded Client Recorded Date Recorded By Document 02/04/17 10:48 [id number] [email or web address] 02/04/17 10:53 [id number] 02/04/17 10:48 PMRU Outcome: Safety Outcome/Goals Remain Free of Injury or Harm Prevent Falls/ Injury Progression Toward Outcome/Goals Progressing Skin- Improve/Maintain Start: 02/04/17 10:46 Freq: QSHIFT Status: Active Target: Protocol: Activity Type Activity Date Activity User E-Sign Co-Sign Detail Recorded Client Recorded Date Recorded By Document 02/04/17 10:48 [id number] 02/04/17 10:53 [id number] 02/04/17 10:48 PMRU Outcome: Skin Skin Risk Level High Skin Orders Dressing Change Heels Off Bed Turn/Position q2hr While in Bed Outcome/Goals Maintain/ Improve Skin Intergrity Maintain/ Improve Wound Status Surgical Incisions Healing Progression Toward Outcome/Goals Progressing Medicine Note: Length of Stay: [4 weeks] Anticipated Discharge Destination: home Tentative Discharge Date: [03/04/17] Discharged to: [home]
[2017-02-04] MEDS: Dakins Solution 0.125% (1/4 STRENGTH)* 473 ML BTL TOPICAL SCH ×2 (13:11→21:32)
--- NOTE | 2017-02-04 15:09 | PN ---
Progress Note - Progress Note Date of Service: 02/04/17 Note: Nursing notes reviewed and discussed with therapists in IPOC meeting. No chest pain, shortness of breath or abdominal pain. She ate dinner last night without incident. No appetite this morning. Tearful about being away from her family this long but not interested in an anti-depressant. She knows she had some heart surgery. Glad to be closer to home. Acetaminophen (Tylenol Tab*) 650 mg PO Q6H PRN PRN Reason: FEVER/PAIN Last Admin: 02/04/17 06:13 Dose: 650 mg Amiodarone HCl (Cordarone Tab*) 200 mg PO DAILY [facility] Last Admin: 02/04/17 08:40 Dose: 200 mg Aspirin (Aspirin Ec Low Dose*) 81 mg PO DAILY [facility] Last Admin: 02/04/17 08:40 Dose: 81 mg Dextrose (D50w Syringe 50 Ml*) 12.5 gm IV PUSH .FOR FS < 60 - SS PRN PRN Reason: FS < 60 Docusate Sodium (Colace Cap*) 100 mg PO BID PRN PRN Reason: CONSTIPATION Furosemide (Lasix Tab*) 40 mg PO DAILY [facility] Last Admin: 02/04/17 08:40 Dose: 40 mg Heparin Sodium (Porcine) (Heparin Vial(*)) 5,000 units SUBCUT Q8HR [facility] Last Admin: 02/04/17 13:12 Dose: 5,000 units Heparin Sodium (Porcine) (Heparin Flush Picc/Ml/Cvc(*)) 1 ml FLUSH 0900,2100 [facility] PRN Reason: Protocol Ceftriaxone Sodium 2 gm/ (Sodium Chloride) 100 mls @ 200 mls/hr IVPB Q24H [facility] Last Admin: 02/04/17 08:37 Dose: 200 mls/hr Insulin Glargine (Lantus(*)) 18 units SUBCUT Q24H [facility] Last Admin: 02/03/17 21:59 Dose: 18 units Insulin Human Lispro (Humalog*) 0 - 10 units SUBCUT ACHS [facility] PRN Reason: Protocol Last Admin: 02/04/17 13:11 Dose: 2 units Lactobacillus Rhamnosus (Culturelle*) 1 cap PO DAILY [facility] Last Admin: 02/04/17 08:39 Dose: 1 cap Magnesium Hydroxide (Milk Of Magnesia Liq*) 30 ml PO Q6H PRN PRN Reason: CONSTIPATION Metformin HCl (Glucophage*) 500 mg PO 1700 [facility] Metoprolol Tartrate (Lopressor Tab*) 25 mg PO Q8HR@0000,0800,1600 [facility] Last Admin: 02/04/17 10:18 Dose: Not Given Omeprazole (Prilosec Cap*) 20 mg PO 0600 [facility] Last Admin: 02/04/17 05:25 Dose: 20 mg Senna (Senokot Tab*) 2 tab PO BEDTIME PRN PRN Reason: CONSTIPATION Sodium Hypochlorite (Dakins Solution 0.125% (02/17)*) 1 applic TOPICAL BID [facility] Last Admin: 02/04/17 13:11 Dose: 1 applic Warfarin Sodium (Coumadin Tab(*)) 10 mg PO DAILY@1700 [facility] PRN Reason: Protocol Warfarin Sodium (Coumadin Tab(*)) 2.5 mg PO DAILY@1700 [facility] Vital Signs 02/03/17 02/03/17 02/03/17 15:28 15:34 23:34 Temperature 97.5 F 97.8 F Pulse Rate 78 78 Respiratory 20 24 Rate Blood Pressure 118/79 116/61 (mmHg) O2 Sat by Pulse 98 98 98 Oximetry 02/04/17 05:16 Temperature 97.3 F Pulse Rate 72 Respiratory 16 Rate Blood Pressure 112/64 (mmHg) O2 Sat by Pulse 96 Oximetry PE: GEN: no acute distress. alert and appropriate. Follows directions. HEENT: loose suture on upper gums removed (not tied) LUNGS: clear to auscultation bilaterally. CV: regular rate and rhythm ABD: +BS, soft, non-tender, and non-distended EXT: Right great toe amputation. Linear wound appears clean without drainage. Wet to dry dakins dressing. No edema. SKIN: linear decubitus on sacrum present on admission NEURO: Bilateral UE/LE motor 4/5, non-focal. Normal sensation. Laboratory Results - last 24 hr 02/03/17 02/04/17 02/04/17 21:06 05:35 05:35 WBC 7.6 RBC 4.42 Hgb 11.4 L Hct 35 MCV 80 MCH 26 L MCHC 32 RDW 21 H Plt Count 427 MPV 8 Neut % (Auto) 55.2 Lymph % (Auto) 28.7 Mccormick % (Auto) 10.0 H Eos % (Auto) 5.6 Baso % (Auto) 0.5 Absolute Neuts (auto) 4.2 Absolute Lymphs (auto) 2.2 Absolute Monos (auto) 0.8 Absolute Eos (auto) 0.4 Absolute Basos (auto) 0 Absolute Nucleated RBC 0.01 Nucleated RBC % 0.1 INR (Anticoag Therapy) 1.72 H Sodium Potassium Chloride Carbon Dioxide Anion Gap BUN Creatinine Est GFR ( Amer) Est GFR (Non-Af Amer) BUN/Creatinine Ratio Glucose POC Glucose (mg/dL) 218 H Calcium Total Bilirubin AST ALT Alkaline Phosphatase Total Protein Albumin Globulin Albumin/Globulin Ratio 02/04/17 02/04/17 02/04/17 05:35 08:04 12:16 WBC RBC Hgb Hct MCV MCH MCHC RDW Plt Count MPV Neut % (Auto) Lymph % (Auto) Mccormick % (Auto) Eos % (Auto) Baso % (Auto) Absolute Neuts (auto) Absolute Lymphs (auto) Absolute Monos (auto) Absolute Eos (auto) Absolute Basos (auto) Absolute Nucleated RBC Nucleated RBC % INR (Anticoag Therapy) Sodium 136 Potassium 4.8 Chloride 105 Carbon Dioxide 25 Anion Gap 6 BUN 55 H Creatinine 1.14 H Est GFR ( Amer) 64.6 Est GFR (Non-Af Amer) 50.3 BUN/Creatinine Ratio 48.2 H Glucose 140 H POC Glucose (mg/dL) 159 H 189 H Calcium 9.4 Total Bilirubin 0.40 AST 18 ALT 22 Alkaline Phosphatase 131 H Total Protein 7.9 Albumin 3.2 Globulin 4.7 H Albumin/Globulin Ratio 0.7 L IMPRESSION/PLAN: 51yo woman s/p sepsis with endocarditis s/p AVR and aortic root replacement, encephalopathy, septic embolic strokes, paroxysmal atrial fibrillation, right great toe amputation with healing wound with h/o ostomyelitis #h/o Sepsis - continue ceftriaxone 2g q24h until 02/24/17. #Paroxysmal Atrial Fibrillation - coumadin. Daily INR until therapeutic. Amiodarone. #Right great toe amputation with healing wound and h/o osteomyelitis - podiatry at [facility] had her NWB RLE. I called Dr. Lucero who has been her local surgeon. He advised ok to WBAT through the heel with a post-op shoe on. Continue dakins wet to dry dressing changes bid. Dr. Lucero will see her next week (Tuesday). #Acute renal failure - follow labs. #s/p AVR and aortic root replacement - sternal precautions #Diabetes mellitus - continue current meds #FEN - calorie counts #DVT ppx - sc heparin until INR therapeutic #Advanced directives - is hcp #Estimated LOS - 4 weeks.
[2017-02-04] MEDS: metFORMIN* 500 MG TAB PO SCH (16:19)
[2017-02-04] MEDS: Warfarin TAB(*) 10 MG PO SCH (16:19)
[2017-02-04] MEDS: Warfarin TAB(*) 2.5 MG PO SCH (16:19)
[2017-02-04] MEDS: Insulin GLARGINE(*) 1 UNITS UNIT SUBCUT SCH (21:44)
[2017-02-05] MEDS: Metoprolol Tartrate TAB* 25 MG PO SCH ×4 (00:46→23:52)
[2017-02-05] MEDS: Heparin VIAL(*) 5000 UNITS/ML VIAL (FIVE THOUSAND) SUBCUT SCH (05:44)
[2017-02-05] MEDS: Omeprazole CAP* 20 MG PO SCH (05:44)
[2017-02-05] MEDS: Furosemide TAB* 40 MG PO SCH (09:00)
[2017-02-05] MEDS: Aspirin EC Low Dose* 81 MG TAB.EC PO SCH (09:00)
[2017-02-05] MEDS: Lactobacillus Acidophilu (GG)* 1 CAP CAP PO SCH (09:00)
[2017-02-05] MEDS: Amiodarone TAB* 200 MG PO SCH (09:00)
[2017-02-05] MEDS: Insulin LISPRO* 1 UNITS UNIT SUBCUT SCH ×4 (09:02→21:15)
[2017-02-05] MEDS: cefTRIAXone(*) 2 GM in NS 0.9% 100 ML* 100 ML IVPB SCH (09:09)
[2017-02-05 10:22] LABS: INR 2.27 (0.77-1.02)
[2017-02-05] MEDS: Dakins Solution 0.125% (1/4 STRENGTH)* 473 ML BTL TOPICAL SCH ×2 (10:41→21:21)
--- NOTE | 2017-02-05 13:34 | PN ---
Progress Note - Progress Note Date of Service: 02/05/17 Note: Nursing and therapy notes reviewed. Early this morning she had some epigastric chest discomfort which migrated to her back and resolved as she mobilized. She reported prior episodes before her illness with stress and anxiety. No shortness of breath or abdominal pain. Still tearful about being away from her family this long and not interested in an anti-depressant. Acetaminophen (Tylenol Tab*) 650 mg PO Q6H PRN PRN Reason: FEVER/PAIN Last Admin: 02/04/17 06:13 Dose: 650 mg Amiodarone HCl (Cordarone Tab*) 200 mg PO DAILY [facility] Last Admin: 02/05/17 09:00 Dose: 200 mg Aspirin (Aspirin Ec Low Dose*) 81 mg PO DAILY [facility] Last Admin: 02/05/17 09:00 Dose: 81 mg Dextrose (D50w Syringe 50 Ml*) 12.5 gm IV PUSH .FOR FS < 60 - SS PRN PRN Reason: FS < 60 Docusate Sodium (Colace Cap*) 100 mg PO BID PRN PRN Reason: CONSTIPATION Furosemide (Lasix Tab*) 40 mg PO DAILY [facility] Last Admin: 02/05/17 09:00 Dose: 40 mg Heparin Sodium (Porcine) (Heparin Vial(*)) 5,000 units SUBCUT Q8HR [facility] Last Admin: 02/05/17 05:44 Dose: 5,000 units Heparin Sodium (Porcine) (Heparin Flush Picc/Ml/Cvc(*)) 1 ml FLUSH 0900,2100 [facility] PRN Reason: Protocol Last Admin: 02/05/17 10:34 Dose: 1 ml Ceftriaxone Sodium 2 gm/ (Sodium Chloride) 100 mls @ 200 mls/hr IVPB Q24H [facility] Last Admin: 02/05/17 09:09 Dose: 200 mls/hr Insulin Glargine (Lantus(*)) 18 units SUBCUT Q24H [facility] Last Admin: 02/04/17 21:44 Dose: 18 units Insulin Human Lispro (Humalog*) 0 - 10 units SUBCUT ACHS [facility] PRN Reason: Protocol Last Admin: 02/05/17 12:11 Dose: 2 units Lactobacillus Rhamnosus (Culturelle*) 1 cap PO DAILY [facility] Last Admin: 02/05/17 09:00 Dose: 1 cap Magnesium Hydroxide (Milk Of Magnesia Liq*) 30 ml PO Q6H PRN PRN Reason: CONSTIPATION Metformin HCl (Glucophage*) 500 mg PO 1700 [facility] Last Admin: 02/04/17 16:19 Dose: 500 mg Metoprolol Tartrate (Lopressor Tab*) 25 mg PO Q8HR@0000,0800,1600 [facility] Last Admin: 02/05/17 09:00 Dose: 25 mg Omeprazole (Prilosec Cap*) 20 mg PO 0600 [facility] Last Admin: 02/05/17 05:44 Dose: 20 mg Senna (Senokot Tab*) 2 tab PO BEDTIME PRN PRN Reason: CONSTIPATION Sodium Hypochlorite (Dakins Solution 0.125% (02/17)*) 1 applic TOPICAL BID [facility] Last Admin: 02/05/17 10:41 Dose: 1 applic Warfarin Sodium (Coumadin Tab(*)) 10 mg PO DAILY@1700 [facility] PRN Reason: Protocol Last Admin: 02/04/17 16:19 Dose: 10 mg Warfarin Sodium (Coumadin Tab(*)) 2.5 mg PO DAILY@1700 [facility] Last Admin: 02/04/17 16:19 Dose: 2.5 mg Vital Signs 02/04/17 02/05/17 02/05/17 15:52 00:31 06:05 Temperature 98.0 F 97.3 F 97.6 F Pulse Rate 79 90 73 Respiratory 20 16 16 Rate Blood Pressure 106/77 93/67 111/64 (mmHg) O2 Sat by Pulse 99 97 98 Oximetry 02/05/17 02/05/17 08:00 08:59 Temperature Pulse Rate 79 Respiratory 20 Rate Blood Pressure 119/74 (mmHg) O2 Sat by Pulse 98 98 Oximetry PE: GEN: no acute distress. alert and appropriate. Follows directions. LUNGS: clear to auscultation bilaterally except inspiratory rales in right base. CV: regular rate and rhythm ABD: +BS, soft, non-tender, and non-distended EXT: Right great toe amputation. Linear wound appears clean without drainage. Wet to dry dakins dressing. No edema. SKIN: linear decubitus on coccyx present on admission NEURO: Bilateral UE/LE motor 4/5, non-focal. Normal sensation. Laboratory Results - last 24 hr 02/04/17 02/04/17 02/05/17 16:22 21:23 07:24 INR (Anticoag Therapy) POC Glucose (mg/dL) 160 H 159 H 138 H 02/05/17 02/05/17 10:06 11:45 INR (Anticoag Therapy) 2.27 H POC Glucose (mg/dL) 171 H IMPRESSION/PLAN: 51yo woman s/p sepsis with endocarditis s/p AVR and aortic root replacement, encephalopathy, septic embolic strokes, paroxysmal atrial fibrillation, right great toe amputation with healing wound with h/o ostomyelitis #Chest and upper back pain episode - this was brief and better with position change. Likely musculoskeletal given decreased mobility and sternotomy. I will get CXR however due to rales on exam. #h/o Sepsis - continue ceftriaxone 2g q24h until 02/24/17. #Paroxysmal Atrial Fibrillation - coumadin. INR tomorrow then M/W/F Amiodarone. #Right great toe amputation with healing wound and h/o osteomyelitis - podiatry at [facility] had her NWB RLE. I called Dr. Lucero who has been her local surgeon. He advised ok to WBAT through the heel with a post-op shoe on. Continue dakins wet to dry dressing changes bid. Dr. Lucero will see her next week (Tuesday). #h/o acute renal failure - follow labs. #s/p AVR and aortic root replacement - sternal precautions at least total of 4 weeks (surgery was 01/13/17, so 4wks post op is 02/10/17) #Diabetes mellitus - continue current meds #FEN - calorie counts #DVT ppx - coumadin. d/c heparin #Advanced directives - is hcp #Estimated LOS - 4 weeks.
--- NOTE | 2017-02-05 15:15 | RAD ---
Indication: Rales. 2 views of the chest demonstrates no mediastinal shift. Mild vascular congestion with right basilar atelectasis is noted. Left lung field is clear. When compared to previous exam December 14, 2016 interstitial edema is improved. Patient is status post transsternal thoracotomy. IMPRESSION: RIGHT BASE ATELECTASIS. NO DEFINITE PNEUMONIA IS IDENTIFIED. PATIENT IS STATUS POST TRACER THORACOTOMY.
[2017-02-05] MEDS: metFORMIN* 500 MG TAB PO SCH (16:43)
[2017-02-05] MEDS: Warfarin TAB(*) 10 MG PO SCH (16:44)
[2017-02-05] MEDS: Warfarin TAB(*) 2.5 MG PO SCH (16:44)
[2017-02-05] MEDS: Insulin GLARGINE(*) 1 UNITS UNIT SUBCUT SCH (21:16)
[2017-02-06] MEDS: Omeprazole CAP* 20 MG PO SCH (06:40)
[2017-02-06] MEDS: cefTRIAXone(*) 2 GM in NS 0.9% 100 ML* 100 ML IVPB SCH (10:02)
[2017-02-06] MEDS: Metoprolol Tartrate TAB* 25 MG PO SCH ×2 (10:06→16:27)
[2017-02-06] MEDS: Amiodarone TAB* 200 MG PO SCH (10:06)
[2017-02-06] MEDS: Lactobacillus Acidophilu (GG)* 1 CAP CAP PO SCH (10:06)
[2017-02-06] MEDS: Aspirin EC Low Dose* 81 MG TAB.EC PO SCH (10:06)
[2017-02-06] MEDS: Insulin LISPRO* 1 UNITS UNIT SUBCUT SCH ×4 (10:06→20:19)
[2017-02-06] MEDS: Furosemide TAB* 40 MG PO SCH (10:06)
[2017-02-06 10:20] LABS: INR 2.79 (0.77-1.02)
[2017-02-06] MEDS ORDERED: ALPRAZolam TAB* 0.25 MG PO PRN (11:23)
[2017-02-06] MEDS: Dakins Solution 0.125% (1/4 STRENGTH)* 473 ML BTL TOPICAL SCH ×2 (11:30→19:44)
--- NOTE | 2017-02-06 11:33 | PN ---
Progress Note - Progress Note Date of Service: 02/06/17 Note: Nursing and therapy notes reviewed. Last night she initially fell asleep, but after 1-2hr was up and could not fall back asleep. She was tearful and her was called and came in. She slept after this. No chest pain, shortness of breath or abdominal pain. She still is not interested in an anti-depressant but accepts the idea of an anxiety medicine prn. He who is here agrees. Acetaminophen (Tylenol Tab*) 650 mg PO Q6H PRN PRN Reason: FEVER/PAIN Last Admin: 02/04/17 06:13 Dose: 650 mg Alprazolam (Xanax Tab*) 0.25 mg PO Q8H PRN PRN Reason: ANXIETY Amiodarone HCl (Cordarone Tab*) 200 mg PO DAILY [facility] Last Admin: 02/06/17 10:06 Dose: 200 mg Aspirin (Aspirin Ec Low Dose*) 81 mg PO DAILY [facility] Last Admin: 02/06/17 10:06 Dose: 81 mg Dextrose (D50w Syringe 50 Ml*) 12.5 gm IV PUSH .FOR FS < 60 - SS PRN PRN Reason: FS < 60 Docusate Sodium (Colace Cap*) 100 mg PO BID PRN PRN Reason: CONSTIPATION Furosemide (Lasix Tab*) 40 mg PO DAILY [facility] Last Admin: 02/06/17 10:06 Dose: 40 mg Heparin Sodium (Porcine) (Heparin Flush Picc/Ml/Cvc(*)) 1 ml FLUSH 0900,2100 [facility] PRN Reason: Protocol Last Admin: 02/06/17 10:56 Dose: 1 ml Ceftriaxone Sodium 2 gm/ (Sodium Chloride) 100 mls @ 200 mls/hr IVPB Q24H [facility] Last Admin: 02/06/17 10:02 Dose: 200 mls/hr Insulin Glargine (Lantus(*)) 18 units SUBCUT Q24H [facility] Last Admin: 02/05/17 21:16 Dose: 18 units Insulin Human Lispro (Humalog*) 0 - 10 units SUBCUT ACHS [facility] PRN Reason: Protocol Last Admin: 02/06/17 10:06 Dose: 1 units Lactobacillus Rhamnosus (Culturelle*) 1 cap PO DAILY [facility] Last Admin: 02/06/17 10:06 Dose: 1 cap Magnesium Hydroxide (Milk Of Magnmatt Liq*) 30 ml PO Q6H PRN PRN Reason: CONSTIPATION Metformin HCl (Glucophage*) 500 mg PO 1700 [facility] Last Admin: 02/05/17 16:43 Dose: 500 mg Metoprolol Tartrate (Lopressor Tab*) 25 mg PO Q8HR@0000,0800,1600 [facility] Last Admin: 02/06/17 10:06 Dose: 25 mg Omeprazole (Prilosec Cap*) 20 mg PO 0600 [facility] Last Admin: 02/06/17 06:40 Dose: Not Given Senna (Senokot Tab*) 2 tab PO BEDTIME PRN PRN Reason: CONSTIPATION Sodium Hypochlorite (Dakins Solution 0.125% (02/17)*) 1 applic TOPICAL BID [facility] Last Admin: 02/05/17 21:21 Dose: 1 applic Warfarin Sodium (Coumadin Tab(*)) 10 mg PO DAILY@1700 [facility] PRN Reason: Protocol Last Admin: 02/05/17 16:44 Dose: 10 mg Warfarin Sodium (Coumadin Tab(*)) 2.5 mg PO DAILY@1700 [facility] Last Admin: 02/05/17 16:44 Dose: 2.5 mg Vital Signs 02/05/17 02/05/17 02/05/17 15:47 19:45 23:55 Temperature 97.7 F Pulse Rate 74 79 Respiratory 18 18 Rate Blood Pressure 94/59 101/62 (mmHg) O2 Sat by Pulse 96 Oximetry 02/06/17 06:41 Temperature 97.4 F Pulse Rate 75 Respiratory 20 Rate Blood Pressure 104/49 (mmHg) O2 Sat by Pulse 100 Oximetry PE: GEN: no acute distress. alert and appropriate. Follows directions. Sitting at side of bed eating minimal breakfast. LUNGS: clear to auscultation bilaterally. CV: regular rate and rhythm ABD: +BS, soft, non-tender, and non-distended EXT: Right great toe amputation. No edema. NEURO: Bilateral UE/LE motor 4/5, non-focal. Normal sensation. Laboratory Results - last 24 hr 02/05/17 02/05/17 02/05/17 11:45 16:46 20:52 INR (Anticoag Therapy) POC Glucose (mg/dL) 171 H 153 H 140 H 02/06/17 02/06/17 08:25 10:05 INR (Anticoag Therapy) 2.79 H POC Glucose (mg/dL) 140 H Chest X-ray 02/05/17 showed right base atelectasis and s/p trans-sternal thoracotomy. 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 Likely musculoskeletal given decreased mobility and sternotomy. CXR on 02/05 showed right base atelectasis. #Anxiety and depression - declines anti-depressant. Start xanax 0.25mg q8h prn anxiety. #h/o Sepsis - continue ceftriaxone 2g q24h until 02/24/17. #Paroxysmal Atrial Fibrillation - coumadin. INR therapeutic. INR M/W/F Amiodarone. #Right great toe amputation with healing wound and h/o osteomyelitis - podiatry at [facility] had her NWB RLE. I called Dr. Lucero 02/04/17 who has been her local surgeon. He advised ok to WBAT through the heel with a post-op shoe on. Continue dakins wet to dry dressing changes bid. Dr. Lucero will see her Thursday 02/08. #h/o acute renal failure - follow labs. #s/p AVR and aortic root replacement - sternal precautions at least total of 4 weeks (surgery was 01/13/17, so 4wks post op is 02/10/17) #Diabetes mellitus - continue current meds #FEN - calorie counts. Labs tomorrow. #DVT ppx - coumadin. #Advanced directives - is hcp #Estimated LOS - 4 weeks.
[2017-02-06] MEDS: Warfarin TAB(*) 10 MG PO SCH (16:26)
[2017-02-06] MEDS: metFORMIN* 500 MG TAB PO SCH (16:26)
[2017-02-06] MEDS: Warfarin TAB(*) 2.5 MG PO SCH (16:27)
[2017-02-06] MEDS: Insulin GLARGINE(*) 1 UNITS UNIT SUBCUT SCH (21:01)
[2017-02-07] MEDS: Metoprolol Tartrate TAB* 25 MG PO SCH ×3 (00:45→17:57)
[2017-02-07] MEDS: Omeprazole CAP* 20 MG PO SCH (06:34)
[2017-02-07] MEDS: cefTRIAXone(*) 2 GM in NS 0.9% 100 ML* 100 ML IVPB SCH (07:53)
[2017-02-07] MEDS: Insulin LISPRO* 1 UNITS UNIT SUBCUT SCH ×4 (08:18→20:50)
[2017-02-07 08:34] LABS: EGFR Non-African American 28.6 (>60)
[2017-02-07 09:19] LABS: ABS Basophils 0.3 10^3/ul (0-0.2); ABS Eosinophils 0.7 10^3/ul (0-0.6); ABS Lymphocytes 2.6 10^3/ul (1.0-4.8); ABS Monocytes 0.7 10^3/ul (0-0.8); ABS Neutrophils 4.1 10^3/ul (1.5-7.7); ABS Nucleated RBC 0.02 10^3/ul; Eosinophil % 7.8 % (0-6); Hematocrit 36 % (35-47); Hemoglobin 11.6 g/dl (12.0-16.0); INR 3.65 (0.77-1.02); Mean Corpuscular HGB Conc 32 g/dl (31-36); Mean Corpuscular Hemoglobin 26 pg (27-31); Mean Corpuscular Volume 79 fL (80-97); Mean Platelet Volume 8 um3 (7.4-10.4); Nucleated Red Blood Cells % 0.2; Platelet Count 472 10^3/ul (150-450); Red Blood Count 4.51 10^6/ul (4.0-5.4); Red Cell Distribution Width 20 % (10.5-15); White Blood Count 8.4 10^3/ul (3.5-10.8)
[2017-02-07] MEDS: Lactobacillus Acidophilu (GG)* 1 CAP CAP PO SCH (09:33)
[2017-02-07] MEDS: Furosemide TAB* 40 MG PO SCH (09:33)
[2017-02-07] MEDS: Amiodarone TAB* 200 MG PO SCH (09:33)
[2017-02-07] MEDS: Aspirin EC Low Dose* 81 MG TAB.EC PO SCH (09:33)
[2017-02-07] MEDS: Multivitamins/Minerals TAB PO SCH (09:33)
[2017-02-07] MEDS: Dakins Solution 0.125% (1/4 STRENGTH)* 473 ML BTL TOPICAL SCH ×2 (09:38→22:21)
--- NOTE | 2017-02-07 09:52 | PN ---
Progress Note - Progress Note Date of Service: 02/07/17 Note: Nursing and therapy notes reviewed. Upset this morning that she can't go home for Platter. Still declines anti-depressant. She did take xanax yesterday and slept better last night. Seen by feeder tender and noted to be taking in less than 10% of calorie needs. She did eat a good breakfast this morning however. No chest pain, shortness of breath or abdominal pain. She had not urinated for several hours yesterday and when bladder scanned had >500cc. On commode she then proceeded to void 600cc. She is incontinent of stool. Acetaminophen (Tylenol Tab*) 650 mg PO Q6H PRN PRN Reason: FEVER/PAIN Last Admin: 02/04/17 06:13 Dose: 650 mg Alprazolam (Xanax Tab*) 0.25 mg PO Q8H PRN PRN Reason: ANXIETY Last Admin: 02/06/17 19:44 Dose: 0.25 mg Amiodarone HCl (Cordarone Tab*) 200 mg PO DAILY [facility] Last Admin: 02/07/17 09:33 Dose: 200 mg Aspirin (Aspirin Ec Low Dose*) 81 mg PO DAILY [facility] Last Admin: 02/07/17 09:33 Dose: 81 mg Dextrose (D50w Syringe 50 Ml*) 12.5 gm IV PUSH .FOR FS < 60 - SS PRN PRN Reason: FS < 60 Docusate Sodium (Colace Cap*) 100 mg PO BID PRN PRN Reason: CONSTIPATION Heparin Sodium (Porcine) (Heparin Flush Picc/Ml/Cvc(*)) 1 ml FLUSH 0900,2100 [facility] PRN Reason: Protocol Last Admin: 02/07/17 09:37 Dose: Not Given Ceftriaxone Sodium 2 gm/ (Sodium Chloride) 100 mls @ 200 mls/hr IVPB Q24H [facility] Last Admin: 02/07/17 07:53 Dose: 200 mls/hr Sodium Chloride (Ns 0.9% 1000 Ml*) 1,000 mls @ 100 mls/hr IV PER RATE [facility] Insulin Glargine (Lantus(*)) 18 units SUBCUT Q24H [facility] Last Admin: 02/06/17 21:01 Dose: 18 units Insulin Human Lispro (Humalog*) 0 - 10 units SUBCUT ACHS [facility] PRN Reason: Protocol Last Admin: 02/07/17 08:18 Dose: Not Given Lactobacillus Rhamnosus (Culturelle*) 1 cap PO DAILY [facility] Last Admin: 02/07/17 09:33 Dose: 1 cap Magnesium Hydroxide (Milk Of Magnmatt Liq*) 30 ml PO Q6H PRN PRN Reason: CONSTIPATION Metoprolol Tartrate (Lopressor Tab*) 25 mg PO Q8HR@0000,0800,1600 [facility] Last Admin: 02/07/17 09:36 Dose: 25 mg Multivitamins/Minerals (Theragran/Minerals Tab*) 1 tab PO DAILY [facility] Last Admin: 02/07/17 09:33 Dose: 1 tab Omeprazole (Prilosec Cap*) 20 mg PO 0600 [facility] Last Admin: 02/07/17 06:34 Dose: Not Given Senna (Senokot Tab*) 2 tab PO BEDTIME PRN PRN Reason: CONSTIPATION Sodium Hypochlorite (Dakins Solution 0.125% (02/17)*) 1 applic TOPICAL BID [facility] Last Admin: 02/07/17 09:38 Dose: 1 applic Vital Signs 02/06/17 02/06/17 02/06/17 15:13 17:13 19:44 Temperature 97.8 F Pulse Rate 73 Respiratory 16 16 18 Rate Blood Pressure 112/65 (mmHg) O2 Sat by Pulse 99 99 Oximetry 02/06/17 02/07/17 02/07/17 21:59 00:50 06:34 Temperature 97.2 F Pulse Rate 75 62 Respiratory 18 16 18 Rate Blood Pressure 108/64 116/66 (mmHg) O2 Sat by Pulse 98 Oximetry PE: GEN: no acute distress. alert and appropriate. Follows directions. Sitting at side of bed finishing breakfast. LUNGS: clear to auscultation bilaterally. CV: regular rate and rhythm ABD: +BS, soft, non-tender, and non-distended EXT: Right great toe amputation. No edema. NEURO: Bilateral UE/LE motor 4/5, non-focal. Normal sensation. Laboratory Results - last 24 hr 02/06/17 02/06/17 02/06/17 10:05 11:45 16:42 WBC RBC Hgb Hct MCV MCH MCHC RDW Plt Count MPV Neut % (Auto) Lymph % (Auto) Blount % (Auto) Eos % (Auto) Baso % (Auto) Absolute Neuts (auto) Absolute Lymphs (auto) Absolute Monos (auto) Absolute Eos (auto) Absolute Basos (auto) Absolute Nucleated RBC Nucleated RBC % INR (Anticoag Therapy) 2.79 H Sodium Potassium Chloride Carbon Dioxide Anion Gap BUN Creatinine Est GFR ( Amer) Est GFR (Non-Af Amer) BUN/Creatinine Ratio Glucose POC Glucose (mg/dL) 163 H 149 H Calcium Total Bilirubin AST ALT Alkaline Phosphatase Total Protein Albumin Globulin Albumin/Globulin Ratio 02/06/17 02/07/17 02/07/17 20:18 08:00 08:11 WBC RBC Hgb Hct MCV MCH MCHC RDW Plt Count MPV Neut % (Auto) Lymph % (Auto) Blount % (Auto) Eos % (Auto) Baso % (Auto) Absolute Neuts (auto) Absolute Lymphs (auto) Absolute Monos (auto) Absolute Eos (auto) Absolute Basos (auto) Absolute Nucleated RBC Nucleated RBC % INR (Anticoag Therapy) Sodium 135 Potassium 4.3 Chloride 104 Carbon Dioxide 23 Anion Gap 8 BUN 59 H Creatinine 1.86 H Est GFR ( Amer) 36.7 Est GFR (Non-Af Amer) 28.6 BUN/Creatinine Ratio 31.7 H Glucose 106 H POC Glucose (mg/dL) 130 H 105 H Calcium 9.4 Total Bilirubin 0.30 AST 19 ALT 26 Alkaline Phosphatase 140 H Total Protein 7.8 Albumin 3.3 Globulin 4.5 H Albumin/Globulin Ratio 0.7 L 02/07/17 02/07/17 09:00 09:00 WBC 8.4 RBC 4.51 Hgb 11.6 L Hct 36 MCV 79 L MCH 26 L MCHC 32 RDW 20 H Plt Count 472 H MPV 8 Neut % (Auto) 48.8 Lymph % (Auto) 31.0 Blount % (Auto) 8.8 Eos % (Auto) 7.8 H Baso % (Auto) 3.6 H Absolute Neuts (auto) 4.1 Absolute Lymphs (auto) 2.6 Absolute Monos (auto) 0.7 Absolute Eos (auto) 0.7 H Absolute Basos (auto) 0.3 H Absolute Nucleated RBC 0.02 Nucleated RBC % 0.2 INR (Anticoag Therapy) 3.65 H Sodium Potassium Chloride Carbon Dioxide Anion Gap BUN Creatinine Est GFR ( Amer) Est GFR (Non-Af Amer) BUN/Creatinine Ratio Glucose POC Glucose (mg/dL) Calcium Total Bilirubin AST ALT Alkaline Phosphatase Total Protein Albumin Globulin Albumin/Globulin Ratio Chest X-ray 02/05/17 showed right base atelectasis and s/p trans-sternal thoracotomy. 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 Had ANA also during her acute illness. Last Cr at [facility] was 1.02 and it was better here . Will d/c metformin. Give IVF NS at 100cc/hr. P3 in AM. I have asked hospitalists to consult. #Chest and upper back pain episode 02/05 - this was brief and better with position change. Likely musculoskeletal given decreased mobility and sternotomy. CXR on 02/05 showed right base atelectasis. #Anxiety and depression - declines anti-depressant. I d/w her that this may affect appetite, but still declines. Continue xanax 0.25mg q8h prn anxiety. #h/o Sepsis - continue ceftriaxone 2g q24h until 02/24/17. #Paroxysmal Atrial Fibrillation - hold coumadin tonight as INR supratherapeutic , and hopefully restart tomorrow. INR tomorrow and M/W/F. Amiodarone. #Right great toe amputation with healing wound and h/o osteomyelitis - podiatry at [facility] had her NWB RLE. I called Dr. Lucero 02/04/17 who has been her local surgeon. He advised ok to WBAT through the heel with a post-op shoe on. Continue dakins wet to dry dressing changes bid. Dr. Lucero will see her Thursday 02/08. #s/p AVR and aortic root replacement - sternal precautions at least total of 4 weeks (surgery was 01/13/17, so 4wks post op is 02/10/17) #Diabetes mellitus - continue Lantus/Lispro. I d/c metformin due to acute renal failure. #FEN - calorie counts and appreciate dietary f/u. #DVT ppx - coumadin. #Advanced directives - is hcp #Estimated LOS - 4 weeks.
--- NOTE | 2017-02-07 14:52 | CONS ---
HOSPITAL MEDICINE CONSULTATION REPORT: DATE OF CONSULT: 02/07/17 ATTENDING PHYSICIAN: Malka Ramos MD CONSULTING PHYSICIAN: Charles Ghosh MD (dictation provided by Isabela Buckley NP ). REASON FOR CONSULT: Acute kidney injury. HISTORY OF PRESENT ILLNESS: Ms. Mansfield is a 51-year-old female with past medical history significant for insulin dependent diabetes, obesity, and obstructive sleep apnea who was originally admitted to our hospital back in August 2016 for amputation of the right great toe for diabetic ulcer with osteomyelitis. She returned on 12/14/16 and was septic from osteomyelitis to the right foot again. During that admission, she was found to have aortic valve endocarditis with an abscess and was transferred to [facility] in [place]. In [place], she went on to have a septic embolic CVA. She was then transferred from [place] to [facility] for a second opinion and she ultimately underwent aortic valve replacement and aortic root replacement there on 01/13/17. She had a complicated postoperative course that included coagulopathy requiring platelets, FFPs, and red blood cells transfusion as well as an episode of atrial fibrillation and hemodynamic instability. She was ultimately transferred to [facility] for rehabilitation on 02/03/17. Ms. Mansfield has been making slow progress. She has had poor oral intake and has appeared depressed after her long illness. She has refused antidepressants. She was seen by the dietitian who noted that she was taking in less than 10% of her caloric needs. The patient has been encouraged strongly to increase her oral intake including oral protein supplementation, but she has been reluctant to do so. Today, she had labs checked and was shown to have an acute kidney injury with creatinine 1.86 and BUN of 59. Dr. Ramos ordered IV fluids and discontinued her metformin. Hospital Medicine was called regarding consultation. On questioning Ms. Mansfield today, she is very withdrawn. She answers all questions appropriately, though she is minimally verbal. She states that she is very sad to be away from her family on . She denies any acute complaints including chest pain, shortness of breath, nausea, vomiting, abdominal pain. She states she has not had any problem with eating, but that she just is not interested in doing so. PAST MEDICAL HISTORY: 1. Aortic valve and aortic root replacement on 01/13/17 at [facility]. 2. Paroxysmal atrial fibrillation. 3. Insulin dependent type 2 diabetes. 4. Osteomyelitis with amputation of right great toe and revision, 2017. 5. Hypertension. 6. Obesity. 7. Obstructive sleep apnea. 8. History of hysterectomy. 9. History of cholecystectomy. MEDICATIONS: Currently; 1. Tylenol 650 mg p.o. q.6 hours p.r.n. 2. Alprazolam 0.25 mg p.o. q.8 hours p.r.n. 3. Amiodarone 200 mg p.o. daily. 4. Aspirin 81 mg p.o. daily. 5. Dakin's solution to foot b.i.d. 6. Docusate 100 mg p.o. b.i.d. p.r.n. 7. Heparin flush as needed to PICC line. 8. Lantus insulin 18 units subcutaneously q.24 hours. 9. Lispro insulin with meals via sliding scale. 10. Lactobacillus 1 cap p.o. daily. 11. Magnesium hydroxide 30 mL p.o. q.6 hours p.r.n. constipation. 12. Multivitamin with mineral 1 tab p.o. daily. 13. Normal saline at 100 mL per hour. 14. Omeprazole 20 mg p.o. daily. 15. Ceftriaxone 2 g q.24 hours. 16. Senna 2 tabs p.o. at bedtime p.r.n. constipation. ALLERGIES: No known drug allergies. FAMILY HISTORY: Mother had a history of diabetes and CAD and father had a history of hypertension. SOCIAL HISTORY: The patient is a former smoker. She rarely drinks alcohol. She lives with her and he would be her healthcare proxy. He is at the bedside during the interview. REVIEW OF SYSTEMS: A 14-point review of systems was completed with Ms. Mansfield today and although she reluctantly answers questions, there appears to be no other positive review of systems. PHYSICAL EXAM: Vital Signs: Temperature 97.2, pulse rate 62, respiratory rate 18, O2 saturation 98% on room air, blood pressure 116/66. General: Ms. Mansfield is sitting up in her chair. She is in no acute distress. Neuro: She is alert. She is oriented x3. Again, she is very withdrawn. She makes minimal eye contact. She moves all extremities equally. There is no facial asymmetry or focal weakness. Extraocular movements are intact. Heart: S1 and S2. No murmur, rub, or gallop and regular. Lungs: Clear to auscultation bilaterally with no accessory muscle use and good aeration. Abdomen: Soft and nontender with bowel sounds positive x4. Extremities: No cyanosis or edema. Skin: The patient has a clean, dry dressing to her right foot and with obvious amputation in the right great toe. DIAGNOSTIC STUDIES/LAB DATA: Sodium 135, potassium 4.3, chloride 104, serum bicarbonate 23, BUN 59, creatinine 1.86, and glucose 106. WBC 8.4, hemoglobin 11.6, hematocrit 36, and platelet count 472,000. INR 3.65. ASSESSMENT: Ms. Mansfield is a 51-year-old female with a complicated past medical history this year. She has history of diabetes, obstructive sleep apnea , and obesity. This year she had an amputation of her right great toe for osteomyelitis in July. 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 She was transferred to [facility] in [place] where she had septic embolic strokes and was ultimately transferred to [facility] where she underwent aortic valve replacement with aortic root replacement in December. She was admitted to the physical medicine rehabilitation unit at [facility] for rehab after her complicated medical history this year. Today, she developed acute kidney injury and Hospital Medicine was called regarding consultation. Our recommendations are as follows; 1. Acute kidney injury. I suspect this is due to very poor oral intake. I know that the dietitians are involved and that staff are also encouraging her to eat and drink. Apparently she ate much better for breakfast today. She has been started on IV fluids which I think is appropriate. We will recheck her basic metabolic panel again tomorrow. Her metformin is held, which is appropriate. I see no other need to adjust other medications. I note that the patient did have history of kidney injury when she was hospitalized over the course of these past couple of months. I suspect this is due to her long-term history of diabetes. 2. Diabetes. The patient's blood glucose has been well controlled. I plan to continue her Lantus at 18 units with lispro sliding scale. 3. Infective endocarditis with aortic valve and aortic root replacement. Plan to continue ceftriaxone until 02/24/[address] Parish. 4. Anxiety and depression. The patient has alprazolam available p.r.n. I strongly continue to encourage her to accept use of an antidepressant to help her with her mood so that she is able to eat more minimally and hopefully able to participate better with rehab as well. 5. History of atrial fibrillation. Continue amiodarone, metoprolol. Continue warfarin as indicated based on INR. 6. Hypertension. Continue metoprolol. 7. DVT prophylaxis with warfarin. With her INR supratherapeutic, this is being held. 8. Code status is full code. TIME SPENT: Approximately 60 minutes were spent on the consultation of this patient, more than half time spent with the patient at the bedside reviewing the events leading up to this hospitalization, performing the physical examination, and reviewing the plan of care. ISABELA BUCKLEY NP [id number]/CPS #: [id number] CHET
[2017-02-07] MEDS: NS 0.9% 1000 ML* 1,000 ML IV SCH (20:09)
[2017-02-07] MEDS: Insulin GLARGINE(*) 1 UNITS UNIT SUBCUT SCH (20:53)
[2017-02-08] MEDS: Metoprolol Tartrate TAB* 25 MG PO SCH ×3 (00:20→16:34)
[2017-02-08] MEDS: Omeprazole CAP* 20 MG PO SCH (05:25)
[2017-02-08] MEDS: NS 0.9% 1000 ML* 1,000 ML IV SCH (05:32)
[2017-02-08 05:59] LABS: INR 3.84 (0.77-1.02)
[2017-02-08 06:04] LABS: EGFR Non-African American 30.4 (>60)
[2017-02-08] MEDS: Insulin LISPRO* 1 UNITS UNIT SUBCUT SCH ×4 (07:22→21:02)
[2017-02-08] MEDS: cefTRIAXone(*) 2 GM in NS 0.9% 100 ML* 100 ML IVPB SCH (08:55)
[2017-02-08] MEDS: Aspirin EC Low Dose* 81 MG TAB.EC PO SCH (09:00)
[2017-02-08] MEDS: Lactobacillus Acidophilu (GG)* 1 CAP CAP PO SCH (09:00)
[2017-02-08] MEDS: Multivitamins/Minerals TAB PO SCH (09:00)
[2017-02-08] MEDS: Amiodarone TAB* 200 MG PO SCH (09:00)
[2017-02-08] MEDS: Dakins Solution 0.125% (1/4 STRENGTH)* 473 ML BTL TOPICAL SCH (09:05)
--- NOTE | 2017-02-08 10:21 | PN ---
Progress Note - Progress Note Date of Service: 02/08/17 Note: Nursing and therapy notes reviewed. Appreciate hospitalist and Dr. Lucero consults. Still declines anti-depressant. No chest pain, shortness of breath or abdominal pain. Acetaminophen (Tylenol Tab*) 650 mg PO Q6H PRN PRN Reason: FEVER/PAIN Last Admin: 02/04/17 06:13 Dose: 650 mg Alprazolam (Xanax Tab*) 0.25 mg PO Q8H PRN PRN Reason: ANXIETY Last Admin: 02/06/17 19:44 Dose: 0.25 mg Amiodarone HCl (Cordarone Tab*) 200 mg PO DAILY [facility] Last Admin: 02/08/17 09:00 Dose: 200 mg Aspirin (Aspirin Ec Low Dose*) 81 mg PO DAILY [facility] Last Admin: 02/08/17 09:00 Dose: 81 mg Dextrose (D50w Syringe 50 Ml*) 12.5 gm IV PUSH .FOR FS < 60 - SS PRN PRN Reason: FS < 60 Docusate Sodium (Colace Cap*) 100 mg PO BID PRN PRN Reason: CONSTIPATION Heparin Sodium (Porcine) (Heparin Flush Picc/Ml/Cvc(*)) 1 ml FLUSH 0900,2100 [facility] PRN Reason: Protocol Last Admin: 02/07/17 20:01 Dose: 1 ml Ceftriaxone Sodium 2 gm/ (Sodium Chloride) 100 mls @ 200 mls/hr IVPB Q24H [facility] Last Admin: 02/08/17 08:55 Dose: 200 mls/hr Sodium Chloride (Ns 0.9% 1000 Ml*) 1,000 mls @ 100 mls/hr IV PER RATE [facility] Last Admin: 02/08/17 05:32 Dose: 100 mls/hr Insulin Glargine (Lantus(*)) 18 units SUBCUT Q24H [facility] Last Admin: 02/07/17 20:53 Dose: 18 units Insulin Human Lispro (Humalog*) 0 - 10 units SUBCUT ACHS [facility] PRN Reason: Protocol Last Admin: 02/08/17 07:22 Dose: Not Given Lactobacillus Rhamnosus (Culturelle*) 1 cap PO DAILY [facility] Last Admin: 02/08/17 09:00 Dose: 1 cap Magnesium Hydroxide (Milk Of Magnesia Liq*) 30 ml PO Q6H PRN PRN Reason: CONSTIPATION Metoprolol Tartrate (Lopressor Tab*) 25 mg PO Q8HR@0000,0800,1600 [facility] Last Admin: 02/08/17 09:03 Dose: 25 mg Multivitamins/Minerals (Theragran/Minerals Tab*) 1 tab PO DAILY [facility] Last Admin: 02/08/17 09:00 Dose: 1 tab Omeprazole (Prilosec Cap*) 20 mg PO 0600 [facility] Last Admin: 02/08/17 05:25 Dose: 20 mg Senna (Senokot Tab*) 2 tab PO BEDTIME PRN PRN Reason: CONSTIPATION Sodium Hypochlorite (Dakins Solution 0.125% (02/17)*) 1 applic TOPICAL BID [facility] Last Admin: 02/08/17 09:05 Dose: 1 applic Warfarin Sodium (Coumadin Tab(*)) 7.5 mg PO DAILY@1700 [facility] PRN Reason: Protocol Vital Signs 02/07/17 02/07/17 02/07/17 11:26 15:40 19:00 Temperature 97.8 F Pulse Rate 75 Respiratory 16 Rate Blood Pressure 97/64 (mmHg) O2 Sat by Pulse 98 98 98 Oximetry 02/08/17 05:28 Temperature 97.6 F Pulse Rate 75 Respiratory 18 Rate Blood Pressure 106/57 (mmHg) O2 Sat by Pulse 98 Oximetry PE: GEN: no acute distress. alert and appropriate. Follows directions. Sitting at side of bed finishing breakfast. LUNGS: clear to auscultation bilaterally. CV: regular rate and rhythm ABD: +BS, soft, non-tender, and non-distended EXT: Right great toe amputation. No edema. NEURO: Bilateral UE/LE motor 4/5, non-focal. Normal sensation. Laboratory Results - last 24 hr 02/07/17 02/07/17 02/07/17 11:40 16:26 20:30 INR (Anticoag Therapy) Sodium Potassium Chloride Carbon Dioxide Anion Gap BUN Creatinine Est GFR ( Amer) Est GFR (Non-Af Amer) BUN/Creatinine Ratio Glucose POC Glucose (mg/dL) 144 H 162 H 132 H Calcium 02/08/17 02/08/17 05:30 05:30 INR (Anticoag Therapy) 3.84 H Sodium 137 Potassium 4.4 Chloride 108 Carbon Dioxide 22 Anion Gap 7 BUN 55 H Creatinine 1.76 H Est GFR ( Amer) 39.2 Est GFR (Non-Af Amer) 30.4 BUN/Creatinine Ratio 31.3 H Glucose 94 POC Glucose (mg/dL) Calcium 9.0 Chest X-ray 02/05/17 showed right base atelectasis and s/p trans-sternal thoracotomy. 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 Had ANA also during her acute illness. A little better today. Continue off metformin and IVF NS at 100cc/hr. P3 in AM. Hospitalists f/u. #Chest and upper back pain episode 02/05 - this was brief and better with position change. Likely musculoskeletal given decreased mobility and sternotomy. CXR on 02/05 showed right base atelectasis. #Anxiety and depression - declines anti-depressant. I d/w her that this may affect appetite, but still declines. Continue xanax 0.25mg q8h prn anxiety. #h/o Sepsis - continue ceftriaxone 2g q24h until 02/24/17. #Paroxysmal Atrial Fibrillation - INR supratherapeutic and coumadin held 02/07. Will start lower dose at 7.5mg tonight as I expect it to decrease tomorrow. INR tomorrow. Amiodarone. #Right great toe amputation with healing wound and h/o osteomyelitis - Seen by Dr. Lucero this morning who advised can do a dry dressing QD and WBAT with post- op shoe. #s/p AVR and aortic root replacement - sternal precautions at least total of 4 weeks (surgery was 01/13/17, so 4wks post op is 02/10/17) #Diabetes mellitus - continue Lantus/Lispro. I d/c metformin due to acute renal failure. #FEN - calorie counts and appreciate dietary f/u. #DVT ppx - coumadin. #Advanced directives - is hcp #Estimated LOS - 4 weeks.
--- NOTE | 2017-02-08 12:21 | RAD ---
INDICATION: Right foot osteomyelitis COMPARISON: Most recent foot radiograph is dated December 14, 2016 TECHNIQUE: 2 views of the right foot were obtained. FINDINGS: The patient is status post right great toe amputation at the diaphysis of the right great toe metatarsal. Remaining visualized bones are intact and appropriately aligned. 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 There is also dermal calcification overlying the visualized right lower leg. IMPRESSION: CHRONIC AND POSTOPERATIVE FINDINGS DESCRIBED ABOVE. If the patient's symptoms persist, follow-up imaging is recommended.
--- NOTE | 2017-02-08 12:38 | PMRUTEAM ---
PMRU: Goals Current Status: Nursing: Current Status Skin Deviations [Right Foot] Incision,Wound Skin Deviations [Midline Chest Incision ] Skin Deviations [Left Upper Incision Chest] Skin Deviations [Medial Other Buttocks] Skin Deviations [Right Upper Other Thigh] Skin Deviations [Bilateral Other Groin] Skin Deviation Description [ healing well. 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 prep pad applied Bilateral Groin] Bladder Current Status incontinent but also voids Bowel Current Status incontinent bm 02/07/17 Nutrition Current Status poor appetite Medication Current Status needs reinforcement Physical Therapy: Current Status Bed Mobility Assistance mod assist Transfer Moblility Assistance 2 or More Person Assist Transfer/Bed Mobility EZ Stand Recommended Devices Ambulation Assistance Contact Guard Assist Ambulation Assistive Devices Railings Number of Feet Patient 3' forward and back. Ambulated Ambulation Comment difficult time maintaining PWB R le but WB status just changed to wbat Stairs Assistance Not Tested Occupational Therapy: Current Status Upper Body Dressing Supervision Lower Body Dressing Mod Assist Bathing Mod Assist Toileting Max Asst Toilet Transfer Total Assist Shower Transfer Total Assist Eating Independent Rec Therapy: Current Status Summary of Assessment and RT assessment complete and pt. is aware of RT Clinical Impression services. Pt. is with visitors much of the time in the afternoons. Treatment Goals Pt. will engage in leisure activities while on the unit. Treatment Plan Provide RT services and encourage involvement. Social Work: Current Status Discharge Plan return home with home care svs and family support Potential for Family Training pt's family is attentive and involved Anticipated Discharge Home Destination Discharge With return home with home care svs and family support Nutrition: Current Status Monitoring Intake 02/06 slightly better, but still ~10% of est needs: 207 kcal, 9.5 g pro. Did not eat B yesterday, ate 25% of baked chicken and half a dinner roll. Had a few bites of pot roast and mashed potatoes at D. Did not visit today since aide reported pt with multiple guests visiting d/t the holiday. Noted that pt ate a good B today per MD note. Will report today's results tomorrow and make further suggestions if intake does not improve. BG remains well-controlled. Speech: Current Status Assessment Patient progressing; improved ability to follow complex, multi-step directions (100%) and orientation improving. Patient continues with challenges with her vision (poor/blurry); verbal repetition strategy taught and practiced for working memory tasks, which was successful for short paragraph length material. The patient will continue to benefit from skilled speech-language pathology services to address functional orientation and working memory for optimal safety and function at home and in the community. Goals: Physical Therapy: Updated Goals Bed Mobility Assistance Independent Transfer Mobility Assistance Independent Transfer/Bed Mobility Rolling Walker Recommended Devices Ambulation Assistance Independent Ambulation Assistive Devices Rolling Walker Ambulation Distance (ft) 150 Stairs Assistance Independent Stairs Recommended Devices Two Rails Number of Stairs 5 Occupational Therapy: Initial Goals Goals to be Completed in (Days 21-28 days ) Upper Body Bathing Routine Modified Independent with Lower Body Bathing Routine Modified Independent with Upper Body Dressing Routine Modified Independent with Lower Body Dressing Routine Modified Independent with Toilet Hygeine and Clothing Modified Independent with Management Routine Toilet Transfer Routine Modified Independent with Tub Transfer Routine Modified Independent with Functional Transfers for ADL Modified Independent with Grooming Routine Modified Independent with Feeding Routine Independent Nursing: Goals Bladder Goal independent Bowel Goal independent Nutrition Goal 90% of all meals Medication Goal supervision Nutrition: Goals Intervention Goals 1. PO intake will improve to at least 50% of meals , and will meet min 50% of est needs to start 2. BG will be adequately controlled (<180) in PMRU setting 2. Pt will maintain regular bowel pattern without constipation/diarrhea Speech: Goals Speech Goal 1 Receptive Language Speech Current Status Goal 1 Met 02/08/17 Goal 1 Comments LTG: The patient will participate in functional daily activities without deficit with language comprehension skills. Status: Goal achieved, 02/08/17. STG: The patient will successfully complete functional, complex language comprehension tasks with 100% accuracy, no cues. Status: Complex, multi-step directions: 100%, no cues. Objective met, 02/08/17. Speech Goal 2 Memory Speech Goal 2 Comments LTG: The patient will participate in functional daily activities, independently utilizing compensatory strategies in order to recall important information successfully. ST)The patient will learn and practice compensatory strategies for recall of information with greater than 90% accuracy, minimal cues. Status: Patient educated on and practiced verbal repetition of information provided. Use of this strategy with short verbal paragraph length information resulted in 80-100% accuracy for tasks, which was an increase from 40% accuracy without use of the strategy. Ongoing. 2)The patient will successfully complete working memory / recall tasks with 50% accuracy, minimal cues. Status: Temporal orientation (verbal): 90% accuracy, minimal extra time provided. Working memory: Patient educated on and practiced verbal repetition of information provided. Use of this strategy with short verbal paragraph length information resulted in 80-100% accuracy for tasks, which was an increase from 40% accuracy without use of the strategy. Ongoing. Social Work: Goals Discharge Plan return home with home care svs and family support Potential for Family Training pt's family is attentive and involved Anticipated Discharge Home Destination Discharge With return home with home care svs and family support Care Plan: Care Plan ADL's - Improve/Maintain Start: 02/04/17 16:05 Freq: DAILY Status: Active Target: Protocol: Activity Type Activity Date Activity User E-Sign Co-Sign Detail Recorded Client Recorded Date Recorded By Document 02/04/17 16:05 [id number] 02/04/17 16:05 [id number] 02/04/17 16:05 PMRU Outcome: ADL's/ADL Transfers Orders/Interventions Occupational Therapy Evaluation & Treatment Device Yes Patient to receive OT 5x/wk for 60-120 Therex min/day Self Care Management UE/LE ADL's with Assist Yes ADL Transfers with Assist Yes Toileting: Transfers,Clothing Management Yes ,Hygeine w/Assist Light Kitchen/Laundry w/Assist Yes Progression Toward Outcome/Goals Progressing Cardiovascular- Improve/Maintain Start: 02/04/17 10:46 Freq: DAILY Status: Active Target: Protocol: Activity Type Activity Date Activity User E-Sign Co-Sign Detail Recorded Client Recorded Date Recorded By Document 02/08/17 09:00 [id number] 02/08/17 10:42 [id number] 02/08/17 09:00 PMRU Outcome: Cardiovascular Vital Signs q Shift for 48hrs Then BID Yes Daily Weight Ordered No Current Cardiovascular Outcome/Goal Maintain/ Achieve Baseline HR, BP , Perfusion Free of Abnormal Cardiac Symptoms Progression Toward Outcome/Goal Progressing Communication-Improve/Maintain Start: 02/04/17 14:53 Freq: DAILY Status: Active Target: Protocol: Activity Type Activity Date Activity User E-Sign Co-Sign Detail Recorded Client Recorded Date Recorded By Document 02/08/17 10:55 [facility] [id number] 02/08/17 10:58 KB 02/08/17 10:55 PMRU Outcome: Communication/Cognitive Status Outcome/Goals Other Other Outcomes/Goals LTG: The patient will participate in functional daily activities without deficit with language comprehension skills. * Goal achieved 02/08/17. STG: The patient will successfully complete functional, complex language comprehension tasks with 100% accuracy, no cues. *Objective achieved . LTG: The patient will participate in functional daily activities, independently utilizing compensatory strategies in order to recall important information successfully. ST)The patient will learn and practice compensatory strategies for recall of information with greater than 90% accuracy, minimal cues. 2)The patient will successfully complete working memory / recall tasks with 50% accuracy, minimal cues. Progression Toward Outcomes/Goals Progressing Outcome/Goals Met Comment Patient progressing; improved ability to follow complex, multi-step directions (100 %) and orientation improving. Patient continues with challenges with her vision ( poor/blurry); verbal repetition strategy taught and practiced for working memory tasks, which was successful ( increase in accuracy by 40- 60%) for short paragraph length material . Coping/Psych-Improve/Maintain Start: 02/04/17 10:46 Freq: DAILY Status: Active Target: Protocol: Activity Type Activity Date Activity User E-Sign Co-Sign Detail Recorded Client Recorded Date Recorded By Document 02/08/17 09:00 [id number] [id number] 02/08/17 10:42 [id number] 02/08/17 09:00 PMRU Outcome: Coping/Psychosocial Coping Outcome/Goals Verbalization of Acceptance of Rehab Admit Verbalization of Sense of Control Over Health Status Utilization of Appropriate Problem Solving Techniques Willingness to Participate in Treatment Plan and Basic Needs Utilization of Available Support Systems Psychosocial Outcome/Goals Maintain/ Improve Emotional Health Demonstrates Knowledge of Healthy Coping Mechanisms Available Cooperate/ Participate in Plan Progression Toward Outcome/Goals - Progressing Coping Progression Toward Outcome/Goals - Progressing Psychosocial Outcome/Goals Met Comment less tearful this am DVT Prophylaxis- Improve/Maintain Start: 02/04/17 10:46 Freq: DAILY Status: Active Target: Protocol: Activity Type Activity Date Activity User E-Sign Co-Sign Detail Recorded Client Recorded Date Recorded By Document 02/08/17 09:00 [id number] 02/08/17 10:42 [id number] 02/08/17 09:00 PMRU Outcome: DVT Prophylaxis Outcome/Goals Remains Free of DVT Complies with DVT Prophylaxis /Treatment Demonstrates Knowledge of DVT Prevention/ Treatment Other Outcome/Goals rina wrap applied to l foot/leg Progression Toward Outcome/Goals Progressing Discharge Planning - Improve/Maintain Start: 02/04/17 10:46 Freq: DAILY Status: Active Target: Protocol: Activity Type Activity Date Activity User E-Sign Co-Sign Detail Recorded Client Recorded Date Recorded By Document 02/07/17 13:41 [id number] 02/07/17 13:43 [id number] 02/07/17 13:41 PMRU Outcome: Discharge Planning Identify Patient Needs yes Update Patient Family No Outcome/Goals Demonstrates Understanding of Discharge Plan Progression Toward Outcome/Goals Progressing Education-Improve/Maintain Start: 02/04/17 10:46 Freq: DAILY Status: Active Target: Protocol: Activity Type Activity Date Activity User E-Sign Co-Sign Detail Recorded Client Recorded Date Recorded By Document 02/08/17 09:00 [id number] 02/08/17 10:42 [id number] 02/08/17 09:00 PMRU Outcome: Education Outcome/Goals Demonstrates Skills Encourage Questions Progression Toward Outcome/Goals Progressing /GI-Improve/Maintain Start: 02/04/17 10:46 Freq: DAILY Status: Active Target: Protocol: Activity Type Activity Date Activity User E-Sign Co-Sign Detail Recorded Client Recorded Date Recorded By Document 02/08/17 09:00 [id number] 02/08/17 10:42 [id number] 02/08/17 09:00 PMRU Outcome: Genitourinary/ Gastrointestinal Genitourinary- Outcome/Goals Maintain/ Achieve Urinary Continence Remain Free of Hospital- Acquired UTI Gastrointestinal-Outcome/Goals Maintain/ Achieve Bowel Regularity in Accordance with Pt's Baseline Prevent Constipation Progression Toward Outcome/Goals - Progressing Progression Toward Outcome/Goals - GI Not Progressing Medication Administration Start: 02/04/17 10:46 Freq: DAILY Status: Active Target: Protocol: Activity Type Activity Date Activity User E-Sign Co-Sign Detail Recorded Client Recorded Date Recorded By Document 02/08/17 09:00 [id number] 02/08/17 10:42 [id number] 02/08/17 09:00 PMRU Outcome: Medication Administration Assess Patient Knowledge/Teach Med Yes Education for all Meds Outcome/Goals Patient Independent with Medication Administration at Home Demonstrates Understanding Progression Towards Outcome/Goals Progressing Is Patient Going Home on Lovenox? No Metabolic Status- Improve/Maintain Start: 02/04/17 10:46 Freq: DAILY Status: Active Target: Protocol: Activity Type Activity Date Activity User E-Sign Co-Sign Detail Recorded Client Recorded Date Recorded By Document 02/08/17 09:00 [id number] 02/08/17 10:42 [id number] 02/08/17 09:00 PMRU Outcome: Metabolic Status Have Fingersticks Been Ordered Yes Fingerstick Order Frequency AC & HS Outcome/Goals Maintain/ Improve Metabolic Status Demonstrate Knowledge of Prevention/ Treatment of Metabolic Imbalances Progression Toward Outcome/Goals Progressing Mobility- Improve/Maintain Start: 02/05/17 18:05 Freq: DAILY Status: Active Target: Protocol: Activity Type Activity Date Activity User E-Sign Co-Sign Detail Recorded Client Recorded Date Recorded By Document 02/05/17 18:07 [id number] 02/05/17 18:07 [id number] 02/05/17 18:07 PMRU Outcome: Mobility Physical Therapy Evaluation and Yes Treatment Activity OOB with Assistance Yes Device Yes Assistance Yes Patient to be seen 5x/wk for 60-120 min/ Therex day for: Mobility Training Gait Training Balance Other Therapy Comment patient is weightbearing through heel of RLE only. Outcome/Goals Maintain/ Achieve Baseline Mobility Status Improve Mobility Status Demonstrates Proper Use of Assistive Devices Free from Complications of Immobility Progression Toward Outcome/Goals Progressing Bed Mobility Yes: independent Transfers Yes: independent with rolling walker Gait x ft Yes: independent with rollingwalker 150' Up/Down Stairs Yes: independent up/ down 5 stairs with 2 rails. Nutrition/Swallowing- Improve/Maintain Start: 02/04/17 10:46 Freq: DAILY Status: Active Target: Protocol: Activity Type Activity Date Activity User E-Sign Co-Sign Detail Recorded Client Recorded Date Recorded By Document 02/08/17 00:02 [id number] 02/08/17 00:03 [id number] 02/08/17 00:02 PMRU Outcome: Nutrition/Swallowing Outcome/Goals Demonstrates Adequate Hydration/ Prevents Dehydration Maintain/ Improve Nutritional Status Progression Toward Outcome/Goals Progressing Respiratory - Improve/Maintain Start: 02/04/17 10:46 Freq: DAILY Status: Active Target: Protocol: Activity Type Activity Date Activity User E-Sign Co-Sign Detail Recorded Client Recorded Date Recorded By Document 02/08/17 09:00 [id number] [id number] 02/08/17 10:42 [id number] 02/08/17 09:00 PMRU Outcome: Respiratory Does Patient Have a Trach No Outcome/Goals Maintain/ Improve Activity Tolerance Prevent Pneumonia/ Atelectasis Other Outcome/Goals encouraged IS Progression Toward Outcome/Goals Progressing Safety- Improve/Maintain Start: 02/04/17 10:46 Freq: DAILY Status: Active Target: Protocol: Activity Type Activity Date Activity User E-Sign Co-Sign Detail Recorded Client Recorded Date Recorded By Document 02/08/17 09:00 [id number] [id number] 02/08/17 10:42 [id number] 02/08/17 09:00 PMRU Outcome: Safety Outcome/Goals Remain Free of Injury or Harm Prevent Falls/ Injury Progression Toward Outcome/Goals Progressing Outcome/Goals Met Comment PA in place Skin- Improve/Maintain Start: 02/04/17 10:46 Freq: DAILY Status: Active Target: Protocol: Activity Type Activity Date Activity User E-Sign Co-Sign Detail Recorded Client Recorded Date Recorded By Document 02/08/17 09:00 [id number] [id number] 02/08/17 10:42 [id number] 02/08/17 09:00 PMRU Outcome: Skin Skin Risk Level High Skin Orders Dressing Change Heels Off Bed Turn/Position q2hr While in Bed Outcome/Goals Maintain/ Improve Skin Intergrity Maintain/ Improve Wound Status Surgical Incisions Healing Progression Toward Outcome/Goals Progressing Medicine Note: Length of Stay: [3.5wks] Anticipated Discharge Destination: Home Tentative Discharge Date: [03/04/17] Discharged to: [home]
--- NOTE | 2017-02-08 14:56 | CONS ---
CONSULTATION REPORT: DATE OF CONSULT: 02/08/17. LOCATION: Seen on the RU HISTORY OF PRESENT ILLNESS: Karma is a 51-year-old woman, fragile diabetic, who went into sepsis, wound breakdown and developed endocarditis back in early December. She was transferred out of the area for intensive care and was treated in [place]. She had eventual debridement and then wound care for the right foot, but during her stay there, she developed some septic emboli to her brain and the endocarditis as well. She has been left with some cognitive difficulties, vision difficulties and weakness. She is now on the rehab unit. PHYSICAL EXAM: Karma shows her to be apathetic in mood, very foggy in terms of medical details of the last 2 months. She does not complain of any pain in the right foot. The right foot has a dry dressing in a postop shoe. The foot itself has excellent wound healing noted. There is no purulence. There is a sort of a deep inverted wound, which is dry. IMPRESSION: Radiographs will be helpful of the right foot to determine the status of the metatarsal which was left behind, but as far as wound care, I would recommend just a daily dry dressing and weightbearing as tolerated in the postop shoe. We are happy to follow if issues arise. [id number]/[facility] #: [id number] MTDD
[2017-02-08] MEDS ORDERED: NS 0.9% 500 ML* 500 ML IV ONE (16:14)
[2017-02-08] MEDS: Warfarin TAB(*) 7.5 MG PO SCH (16:34)
--- NOTE | 2017-02-08 17:05 | PN ---
Subjective Date of Service: 02/08/17 Interval History: Patient seen and examined at bedside. Patient reports she has not been drinking very much the last few days. Denies pain. Refusing anti-depressant as well as Xanax. Family History: Unchanged from Admission Social History: Unchanged from Admission Past Medical History: Unchanged from Admission Objective Active Medications: Acetaminophen (Tylenol Tab*) 650 mg PO Q6H PRN Alprazolam (Xanax Tab*) 0.25 mg PO Q8H PRN Amiodarone HCl (Cordarone Tab*) 200 mg PO DAILY [facility] Aspirin (Aspirin Ec Low Dose*) 81 mg PO DAILY [facility] Docusate Sodium (Colace Cap*) 100 mg PO BID PRN Heparin Sodium (Porcine) (Heparin Flush Picc/Ml/Cvc(*)) 1 ml FLUSH 0900,2100 [facility] Ceftriaxone Sodium 2 gm/ (Sodium Chloride) 100 mls @ 200 mls/hr IVPB Q24H [facility] Sodium Chloride (Ns 0.9% 1000 Ml*) 1,000 mls @ 100 mls/hr IV PER RATE [facility] Insulin Glargine (Lantus(*)) 18 units SUBCUT Q24H [facility] Insulin Human Lispro (Humalog*) 0 - 10 units SUBCUT ACHS [facility] Lactobacillus Rhamnosus (Culturelle*) 1 cap PO DAILY [facility] Magnesium Hydroxide (Milk Of Magnesia Liq*) 30 ml PO Q6H PRN Metoprolol Tartrate (Lopressor Tab*) 25 mg PO Q8HR@0000,0800,1600 [facility] Multivitamins/Minerals (Theragran/Minerals Tab*) 1 tab PO DAILY [facility] Omeprazole (Prilosec Cap*) 20 mg PO 0600 [facility] Senna (Senokot Tab*) 2 tab PO BEDTIME PRN Warfarin Sodium (Coumadin Tab(*)) 7.5 mg PO DAILY@1700 [facility] Vital Signs Temp Pulse Resp BP Pulse Ox 97.3 F 85 18 110/79 93 02/08/17 15:21 02/08/17 15:21 02/08/17 15:21 02/08/17 15:21 02/08/17 16:12 Oxygen Devices in Use Now: None Appearance: sitting up in bed, NAD Eyes: No Scleral Icterus, PERRLA Ears/Nose/Mouth/Throat: NL Teeth, Lips, Gums Neck: NL Appearance and Movements; NL JVP Respiratory: Symmetrical Chest Expansion and Respiratory Effort, Clear to Auscultation Cardiovascular: NL Sounds; No Murmurs; No JVD Abdominal: NL Sounds; No Tenderness; No Distention Extremities: No Edema Skin: - - Dry dressing to right foot. Neurological: Alert and Oriented x 3, - - very withdrawn Lines/Tubes/Other Access: Clean, Dry and Intact Peripheral IV Nutrition: Taking PO's Result Diagrams: 02/07/17 09:00 02/08/17 05:30 Assess/Plan/Problems-Billing Pt is a 51 y/o F w/ hx DM, TULIO and diabetic foot infection/ostemyelitis and subsequent infective endocarditis, septic embolic strokes now s/p aortic valve and root replacement at [facility] who is here at [facility] for rehab. She has had decreasing oral intake and labs shows elevated creatinine of 1.7. - Patient Problems (1) Acute kidney injury Comment: Slight improvement. Suspect secondary to poor PO intake. Will give additional 500cc bolus and continue fluids. Recheck Cr in AM. (2) Infective endocarditis of aortic valve Comment: Continue Ceftriaxone until 02/24/2017. (3) Type 2 diabetes mellitus Comment: Continue Lantus at 18 units and Lispro sliding scale. (4) Anxiety with depression Comment: This is playing into her lack of PO intake. Encouraged use of Xanax. Refusing antidepressant. (5) Atrial fibrillation Comment: Continue amiodarone and metoprolol. Warfarin for anticoagulation per INR. (6) HTN (hypertension) Comment: Continue Metoprolol. (7) DVT prophylaxis Comment: INR 3.8 (8) Full code status Status and Disposition: Inpatient for rehab. Will follow Cr.
[2017-02-08] MEDS: Insulin GLARGINE(*) 1 UNITS UNIT SUBCUT SCH (21:03)
[2017-02-09] MEDS: Metoprolol Tartrate TAB* 25 MG PO SCH ×4 (00:03→23:38)
[2017-02-09] MEDS: NS 0.9% 1000 ML* 1,000 ML IV SCH ×2 (00:30→21:30)
[2017-02-09] MEDS: Omeprazole CAP* 20 MG PO SCH (05:16)
[2017-02-09 05:32] LABS: INR 3.09 (0.77-1.02)
[2017-02-09 05:37] LABS: EGFR Non-African American 39.6 (>60)
[2017-02-09] MEDS: Multivitamins/Minerals TAB PO SCH (09:02)
[2017-02-09] MEDS: Lactobacillus Acidophilu (GG)* 1 CAP CAP PO SCH (09:02)
[2017-02-09] MEDS: Amiodarone TAB* 200 MG PO SCH (09:02)
[2017-02-09] MEDS: Aspirin EC Low Dose* 81 MG TAB.EC PO SCH (09:02)
[2017-02-09] MEDS: Insulin LISPRO* 1 UNITS UNIT SUBCUT SCH ×4 (09:04→21:07)
[2017-02-09] MEDS: cefTRIAXone(*) 2 GM in NS 0.9% 100 ML* 100 ML IVPB SCH (09:05)
--- NOTE | 2017-02-09 15:00 | PN ---
Subjective Date of Service: 02/09/17 Interval History: Patient seen and examined at bedside. Patient walked with PT today and took in more of her tray and fluids. Cr improved. 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 Family History: Unchanged from Admission Social History: Unchanged from Admission Past Medical History: Unchanged from Admission Objective Active Medications: Acetaminophen (Tylenol Tab*) 650 mg PO Q6H PRN Alprazolam (Xanax Tab*) 0.25 mg PO Q8H PRN Aspirin (Aspirin Ec Low Dose*) 81 mg PO DAILY [facility] Docusate Sodium (Colace Cap*) 100 mg PO BID PRN Heparin Sodium (Porcine) (Heparin Flush Picc/Ml/Cvc(*)) 1 ml FLUSH 0900,2100 [facility] Ceftriaxone Sodium 2 gm/ (Sodium Chloride) 100 mls @ 200 mls/hr IVPB Q24H [facility] Sodium Chloride (Ns 0.9% 1000 Ml*) 1,000 mls @ 100 mls/hr IV PER RATE [facility] Insulin Glargine (Lantus(*)) 18 units SUBCUT Q24H [facility] Insulin Human Lispro (Humalog*) 0 - 10 units SUBCUT ACHS [facility] Lactobacillus Rhamnosus (Culturelle*) 1 cap PO DAILY [facility] Magnesium Hydroxide (Milk Of Magnesia Liq*) 30 ml PO Q6H PRN Metoprolol Tartrate (Lopressor Tab*) 25 mg PO Q8HR@0000,0800,1600 [facility] Multi-Ingredient Ointment (Hydrocerin*) 1 applic TOPICAL BID [facility] Multivitamins/Minerals (Theragran/Minerals Tab*) 1 tab PO DAILY [facility] Omeprazole (Prilosec Cap*) 20 mg PO 0600 [facility] Senna (Senokot Tab*) 2 tab PO BEDTIME PRN Warfarin Sodium (Coumadin Tab(*)) 7.5 mg PO DAILY@1700 [facility] Vital Signs Temp Pulse Resp BP Pulse Ox 97.5 F 71 20 127/74 99 02/09/17 15:40 02/09/17 15:40 02/09/17 15:40 02/09/17 15:40 02/09/17 15:40 Oxygen Devices in Use Now: None Appearance: laying in bed, NAD Eyes: No Scleral Icterus, PERRLA Ears/Nose/Mouth/Throat: NL Teeth, Lips, Gums Neck: NL Appearance and Movements; NL JVP Respiratory: Symmetrical Chest Expansion and Respiratory Effort, Clear to Auscultation Cardiovascular: NL Sounds; No Murmurs; No JVD, RRR Abdominal: NL Sounds; No Tenderness; No Distention Extremities: No Edema Skin: No Rash or Ulcers Neurological: Alert and Oriented x 3, NL Muscle Strength and Tone Lines/Tubes/Other Access: Clean, Dry and Intact Peripheral IV Nutrition: Taking PO's Result Diagrams: 02/07/17 09:00 02/09/17 05:00 Assess/Plan/Problems-Billing Pt is a 51 y/o F w/ hx DM, TULIO and diabetic foot infection/ostemyelitis and subsequent infective endocarditis, septic embolic strokes now s/p aortic valve and root replacement at [facility] [place] who is here at [facility] for rehab. She has had decreasing oral intake and labs shows elevated creatinine of 1.7. - Patient Problems (1) Acute kidney injury Comment: Cr. to 1.4 today. Recheck in AM. Continue IVF until tomorrow AM. Continue to encourage PO intake. (2) Infective endocarditis of aortic valve Comment: Continue Ceftriaxone until 02/24/2017. (3) Type 2 diabetes mellitus Comment: Continue Lantus at 18 units and Lispro sliding scale. (4) Anxiety with depression Comment: This is playing into her lack of PO intake. Encouraged use of Xanax. Refusing antidepressant. (5) Atrial fibrillation Comment: Continue amiodarone and metoprolol. Warfarin for anticoagulation per INR. (6) HTN (hypertension) Comment: Continue Metoprolol. (7) DVT prophylaxis Comment: INR 3.0 (8) Full code status Status and Disposition: Inpatient for rehab. Will sign off for now. Please call for further questions or concerns.
[2017-02-09] MEDS: Warfarin TAB(*) 7.5 MG PO SCH (17:17)
--- NOTE | 2017-02-09 18:43 | PN ---
Progress Note - Progress Note Date of Service: 02/09/17 Note: Karma and I met this afternoon. Discussed her CVA and the evidence for increased neuronal recovery with fluoxetine. I will order it for tomorrow. Therapy notes read and reviewed. Hospitalist note read. Current Medications Acetaminophen (Tylenol Tab*) 650 mg PO Q6H PRN PRN Reason: FEVER/PAIN Last Admin: 02/04/17 06:13 Dose: 650 mg Alprazolam (Xanax Tab*) 0.25 mg PO Q8H PRN PRN Reason: ANXIETY Last Admin: 02/06/17 19:44 Dose: 0.25 mg Amiodarone HCl (Cordarone Tab*) [address] [facility] Last Admin: 02/09/17 09:02 Dose: 200 mg Aspirin (Aspirin Ec Low Dose*) [address] [facility] Last Admin: 02/09/17 09:02 Dose: 81 mg Dextrose (D50w Syringe 50 Ml*) 12.5 gm IV PUSH .FOR FS < 60 - SS PRN PRN Reason: FS < 60 Docusate Sodium (Colace Cap*) 100 mg PO BID PRN PRN Reason: CONSTIPATION Heparin Sodium (Porcine) (Heparin Flush Picc/Ml/Cvc(*)) 1 ml FLUSH 0900,2100 [facility] PRN Reason: Protocol Last Admin: 02/09/17 08:07 Dose: 1 ml Ceftriaxone Sodium 2 gm/ (Sodium Chloride) 100 mls @ 200 mls/hr IVPB Q24H [facility] Last Admin: 02/09/17 09:05 Dose: 200 mls/hr Sodium Chloride (Ns 0.9% 1000 Ml*) 1,000 mls @ 100 mls/hr IV PER RATE [facility] Last Admin: 02/09/17 00:30 Dose: 100 mls/hr Insulin Glargine (Lantus(*)) [address] [facility] Last Admin: 02/08/17 21:03 Dose: 18 units Insulin Human Lispro (Humalog*) 0 - [address] [facility] PRN Reason: Protocol Last Admin: 02/09/17 17:19 Dose: 1 units Lactobacillus Rhamnosus (Culturelle*) [address] [facility] Last Admin: 02/09/17 09:02 Dose: 1 cap Magnesium Hydroxide (Milk Of Magnesia Liq*) 30 ml PO Q6H PRN PRN Reason: CONSTIPATION Metoprolol Tartrate (Lopressor Tab*) 25 mg PO Q8HR@0000,0800,1600 [facility] Last Admin: 02/09/17 17:17 Dose: 25 mg Multi-Ingredient Ointment (Hydrocerin*) [address] [facility] Multivitamins/Minerals (Theragran/Minerals Tab*) [address] [facility] Last Admin: 02/09/17 09:02 Dose: 1 tab Omeprazole (Prilosec Cap*) [address] [facility] Last Admin: 02/09/17 05:16 Dose: 20 mg Senna (Senokot Tab*) 2 tab PO BEDTIME PRN PRN Reason: CONSTIPATION Warfarin Sodium (Coumadin Tab(*)) 7.5 mg PO DAILY@1700 [facility] PRN Reason: Protocol Last Admin: 02/09/17 17:17 Dose: 7.5 mg Laboratory Results - last 24 hr 02/08/17 02/09/17 02/09/17 20:44 05:00 05:00 INR (Anticoag Therapy) 3.09 H Sodium 137 Potassium 4.7 Chloride 109 Carbon Dioxide 22 Anion Gap 6 BUN 42 H Creatinine 1.40 H Est GFR ( Amer) 51.0 Est GFR (Non-Af Amer) 39.6 BUN/Creatinine Ratio 30.0 H Glucose 128 H POC Glucose (mg/dL) 161 H Calcium 8.9 02/09/17 02/09/17 02/09/17 07:31 11:57 16:28 INR (Anticoag Therapy) Sodium Potassium Chloride Carbon Dioxide Anion Gap BUN Creatinine Est GFR ( Amer) Est GFR (Non-Af Amer) BUN/Creatinine Ratio Glucose POC Glucose (mg/dL) 138 H 155 H 134 H Calcium Vital Signs Temp Pulse Resp BP Pulse Ox 97.5 F 71 20 127/74 99 02/09/17 15:40 02/09/17 15:40 02/09/17 15:40 02/09/17 15:40 02/09/17 15:40 EXAM: LUNGS: Clear bilat HEART: reg rhythm ABDOMEN: Soft +BS EXTREMITIES: Right foot wound ok ASSESSMENT/PLAN: 1. 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 Will try Prozac 2. Atrial fibrillation: Amiodarone. Coumadin 3. Diabetes Mellitus: Lantus 18 units at HS. Lispro SSI 4. Acute Kidney Injury: Cr better. 5. 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 DVT Prophylaxis: Coumadin 7. Advanced directives: is HCP 8. AVR with aortic root replacement: PT/OT. Sternal precautions
[2017-02-09] MEDS: Moisturizing CREAM* 120 GM JAR TOPICAL SCH (19:51)
[2017-02-09] MEDS: Insulin GLARGINE(*) 1 UNITS UNIT SUBCUT SCH (21:07)
[2017-02-10] MEDS: Omeprazole CAP* 20 MG PO SCH (06:41)
[2017-02-10] MEDS: Insulin LISPRO* 1 UNITS UNIT SUBCUT SCH ×4 (08:20→21:14)
[2017-02-10] MEDS: cefTRIAXone(*) 2 GM in NS 0.9% 100 ML* 100 ML IVPB SCH (08:30)
[2017-02-10] MEDS: Amiodarone TAB* 200 MG PO SCH (08:35)
[2017-02-10] MEDS: Multivitamins/Minerals TAB PO SCH (08:35)
[2017-02-10] MEDS: Aspirin EC Low Dose* 81 MG TAB.EC PO SCH (08:35)
[2017-02-10] MEDS: FLUoxetine CAP* 10 MG PO SCH (08:35)
[2017-02-10] MEDS: Lactobacillus Acidophilu (GG)* 1 CAP CAP PO SCH (08:35)
[2017-02-10] MEDS: Metoprolol Tartrate TAB* 25 MG PO SCH ×2 (08:42→17:15)
[2017-02-10] MEDS: Moisturizing CREAM* 120 GM JAR TOPICAL SCH ×2 (09:30→19:41)
[2017-02-10 14:57] LABS: EGFR Non-African American 52.9 (>60)
[2017-02-10] MEDS: Warfarin TAB(*) 7.5 MG PO SCH (17:15)
--- NOTE | 2017-02-10 18:22 | PN ---
Progress Note - Progress Note Date of Service: 02/10/17 Note: Karma visited. Therapy notes read and reviewed. She had an episode of right sided chest pain which appeared to be muscular while in the gym today. EKG was not notable. She started Prozac today and tolerated it. Current Medications Acetaminophen (Tylenol Tab*) 650 mg PO Q6H PRN PRN Reason: FEVER/PAIN Last Admin: 02/04/17 06:13 Dose: 650 mg Alprazolam (Xanax Tab*) 0.25 mg PO Q8H PRN PRN Reason: ANXIETY Last Admin: 02/06/17 19:44 Dose: 0.25 mg Amiodarone HCl (Cordarone Tab*) 200 mg PO DAILY [facility] Last Admin: 02/10/17 08:35 Dose: 200 mg Aspirin (Aspirin Ec Low Dose*) 81 mg PO DAILY [facility] Last Admin: 02/10/17 08:35 Dose: 81 mg Dextrose (D50w Syringe 50 Ml*) 12.5 gm IV PUSH .FOR FS < 60 - SS PRN PRN Reason: FS < 60 Docusate Sodium (Colace Cap*) 100 mg PO BID PRN PRN Reason: CONSTIPATION Fluoxetine HCl (Prozac Cap*) 10 mg PO DAILY [facility] Last Admin: 02/10/17 08:35 Dose: 10 mg Heparin Sodium (Porcine) (Heparin Flush Picc/Ml/Cvc(*)) 1 ml FLUSH 0900,2100 [facility] PRN Reason: Protocol Last Admin: 02/10/17 09:10 Dose: 1 ml Ceftriaxone Sodium 2 gm/ (Sodium Chloride) 100 mls @ 200 mls/hr IVPB Q24H [facility] Last Admin: 02/10/17 08:30 Dose: 200 mls/hr Insulin Glargine (Lantus(*)) 18 units SUBCUT Q24H [facility] Last Admin: 02/09/17 21:07 Dose: 18 units Insulin Human Lispro (Humalog*) 0 - 10 units SUBCUT ACHS [facility] PRN Reason: Protocol Last Admin: 02/10/17 17:16 Dose: 2 units Lactobacillus Rhamnosus (Culturelle*) 1 cap PO DAILY [facility] Last Admin: 02/10/17 08:35 Dose: 1 cap Magnesium Hydroxide (Milk Of Magnesia Liq*) 30 ml PO Q6H PRN PRN Reason: CONSTIPATION Metoprolol Tartrate (Lopressor Tab*) 25 mg PO Q8HR@0000,0800,1600 [facility] Last Admin: 02/10/17 17:15 Dose: 25 mg Multi-Ingredient Ointment (Hydrocerin*) 1 applic TOPICAL BID [facility] Last Admin: 02/10/17 09:30 Dose: 1 applic Multivitamins/Minerals (Theragran/Minerals Tab*) 1 tab PO DAILY [facility] Last Admin: 02/10/17 08:35 Dose: 1 tab Omeprazole (Prilosec Cap*) 20 mg PO 0600 [facility] Last Admin: 02/10/17 06:41 Dose: 20 mg Senna (Senokot Tab*) 2 tab PO BEDTIME PRN PRN Reason: CONSTIPATION Warfarin Sodium (Coumadin Tab(*)) 7.5 mg PO DAILY@1700 [facility] PRN Reason: Protocol Last Admin: 02/10/17 17:15 Dose: 7.5 mg Laboratory Results - last 24 hr 02/09/17 02/10/17 02/10/17 20:32 07:55 12:11 Sodium Potassium Chloride Carbon Dioxide Anion Gap BUN Creatinine Est GFR ( Amer) Est GFR (Non-Af Amer) BUN/Creatinine Ratio Glucose POC Glucose (mg/dL) 180 H 112 H 143 H Calcium 02/10/17 02/10/17 13:50 16:16 Sodium 137 Potassium 5.2 H Chloride 113 H Carbon Dioxide 17 L Anion Gap 7 BUN 26 H Creatinine 1.09 H Est GFR ( Amer) 68.1 Est GFR (Non-Af Amer) 52.9 BUN/Creatinine Ratio 23.9 H Glucose 147 H POC Glucose (mg/dL) 179 H Calcium 9.1 Vital Signs Temp Pulse Resp BP Pulse Ox 97.5 F 66 16 107/48 99 02/10/17 15:18 02/10/17 15:18 02/10/17 15:58 02/10/17 15:18 02/10/17 15:58 EXAM: LUNGS: Clear bilat HEART: reg rhythm ABDOMEN: Soft +BS EXTREMITIES: Right foot wound ok ASSESSMENT/PLAN: 1. 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 Tolerated Prozac; will increase to 20 mg on 02/12 2. Atrial fibrillation: Amiodarone. Coumadin. Check INR in am 3. Diabetes Mellitus: Lantus 18 units at HS. Lispro SSI 4. Acute Kidney Injury: Cr normal today. 5. 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 DVT Prophylaxis: Coumadin 7. Advanced directives: is HCP 8. AVR with aortic root replacement: PT/OT. Sternal precautions
[2017-02-10] MEDS: Insulin GLARGINE(*) 1 UNITS UNIT SUBCUT SCH (21:15)
[2017-02-11] MEDS: Metoprolol Tartrate TAB* 25 MG PO SCH ×4 (00:35→23:56)
[2017-02-11] MEDS: Omeprazole CAP* 20 MG PO SCH (05:21)
[2017-02-11 05:51] LABS: ABS Basophils 0.1 10^3/ul (0-0.2); ABS Eosinophils 0.5 10^3/ul (0-0.6); ABS Lymphocytes 2.2 10^3/ul (1.0-4.8); ABS Monocytes 0.5 10^3/ul (0-0.8); ABS Neutrophils 2.7 10^3/ul (1.5-7.7); ABS Nucleated RBC 0 10^3/ul; Hematocrit 32 % (35-47); Hemoglobin 10.1 g/dl (12.0-16.0); Mean Corpuscular HGB Conc 32 g/dl (31-36); Mean Corpuscular Hemoglobin 26 pg (27-31); Mean Corpuscular Volume 81 fL (80-97); Mean Platelet Volume 8 um3 (7.4-10.4); Nucleated Red Blood Cells % 0; Platelet Count 297 10^3/ul (150-450); Red Blood Count 3.91 10^6/ul (4.0-5.4); Red Cell Distribution Width 21 % (10.5-15)
[2017-02-11 05:57] LABS: INR 2.78 (0.77-1.02)
[2017-02-11 06:04] LABS: EGFR Non-African American 53.5 (>60)
[2017-02-11] MEDS: FLUoxetine CAP* 10 MG PO SCH (08:22)
[2017-02-11] MEDS: Amiodarone TAB* 200 MG PO SCH (08:22)
[2017-02-11] MEDS: Aspirin EC Low Dose* 81 MG TAB.EC PO SCH (08:22)
[2017-02-11] MEDS: Lactobacillus Acidophilu (GG)* 1 CAP CAP PO SCH (08:22)
[2017-02-11] MEDS: Multivitamins/Minerals TAB PO SCH (08:23)
[2017-02-11] MEDS: cefTRIAXone(*) 2 GM in NS 0.9% 100 ML* 100 ML IVPB SCH (08:24)
[2017-02-11] MEDS: Moisturizing CREAM* 120 GM JAR TOPICAL SCH ×2 (08:29→21:40)
[2017-02-11] MEDS: Insulin LISPRO* 1 UNITS UNIT SUBCUT SCH ×4 (08:29→21:29)
--- NOTE | 2017-02-11 13:39 | PN ---
Progress Note - Progress Note Date of Service: 02/11/17 Note: Nursing and therapy notes reviewed. Eating well now and drinking fluids. No chest pain today, shortness of breath or abdominal pain. Not sure her vision is improving. Left field of vision is better than right field of vision. Acetaminophen (Tylenol Tab*) 650 mg PO Q6H PRN PRN Reason: FEVER/PAIN Last Admin: 02/04/17 06:13 Dose: 650 mg Alprazolam (Xanax Tab*) 0.25 mg PO Q8H PRN PRN Reason: ANXIETY Last Admin: 02/06/17 19:44 Dose: 0.25 mg Amiodarone HCl (Cordarone Tab*) 200 mg PO DAILY [facility] Last Admin: 02/11/17 08:22 Dose: 200 mg Aspirin (Aspirin Ec Low Dose*) 81 mg PO DAILY [facility] Last Admin: 02/11/17 08:22 Dose: 81 mg Dextrose (D50w Syringe 50 Ml*) 12.5 gm IV PUSH .FOR FS < 60 - SS PRN PRN Reason: FS < 60 Docusate Sodium (Colace Cap*) 100 mg PO BID PRN PRN Reason: CONSTIPATION Fluoxetine HCl (Prozac Cap*) 10 mg PO DAILY [facility] Stop: 02/11/17 23:59 Last Admin: 02/11/17 08:22 Dose: 10 mg Fluoxetine HCl (Prozac Cap*) 20 mg PO DAILY [facility] Heparin Sodium (Porcine) (Heparin Flush Picc/Ml/Cvc(*)) 1 ml FLUSH 0900,2100 [facility] PRN Reason: Protocol Last Admin: 02/11/17 08:58 Dose: 1 ml Ceftriaxone Sodium 2 gm/ (Sodium Chloride) 100 mls @ 200 mls/hr IVPB Q24H [facility] Last Admin: 02/11/17 08:24 Dose: 200 mls/hr Insulin Glargine (Lantus(*)) 18 units SUBCUT Q24H [facility] Last Admin: 02/10/17 21:15 Dose: 18 units Insulin Human Lispro (Humalog*) 0 - 10 units SUBCUT ACHS [facility] PRN Reason: Protocol Last Admin: 02/11/17 12:29 Dose: 2 units Lactobacillus Rhamnosus (Culturelle*) 1 cap PO DAILY [facility] Last Admin: 02/11/17 08:22 Dose: 1 cap Magnesium Hydroxide (Milk Of Magnesia Liq*) 30 ml PO Q6H PRN PRN Reason: CONSTIPATION Metoprolol Tartrate (Lopressor Tab*) 25 mg PO Q8HR@0000,0800,1600 [facility] Last Admin: 02/11/17 08:22 Dose: 25 mg Multi-Ingredient Ointment (Hydrocerin*) 1 applic TOPICAL BID [facility] Last Admin: 02/11/17 08:29 Dose: 1 applic Multivitamins/Minerals (Theragran/Minerals Tab*) 1 tab PO DAILY [facility] Last Admin: 02/11/17 08:23 Dose: 1 tab Omeprazole (Prilosec Cap*) 20 mg PO 0600 [facility] Last Admin: 02/11/17 05:21 Dose: 20 mg Senna (Senokot Tab*) 2 tab PO BEDTIME PRN PRN Reason: CONSTIPATION Warfarin Sodium (Coumadin Tab(*)) 7.5 mg PO DAILY@1700 [facility] PRN Reason: Protocol Last Admin: 02/10/17 17:15 Dose: 7.5 mg Vital Signs 02/10/17 02/10/17 02/11/17 15:18 15:58 00:35 Temperature 97.5 F Pulse Rate 66 Respiratory 16 16 16 Rate Blood Pressure 107/48 (mmHg) O2 Sat by Pulse 99 99 Oximetry 02/11/17 02/11/17 00:41 05:14 Temperature 98.6 F Pulse Rate 64 Respiratory 20 Rate Blood Pressure 118/51 124/59 (mmHg) O2 Sat by Pulse 100 Oximetry PE: GEN: no acute distress. alert and appropriate. LUNGS: clear to auscultation bilaterally. CV: regular rate and rhythm ABD: +BS, soft, non-tender, and non-distended EXT: Right great toe amputation. No edema. Laboratory Results - last 24 hr 02/10/17 02/10/17 02/10/17 13:50 16:16 20:21 WBC RBC Hgb Hct MCV MCH MCHC RDW Plt Count MPV Neut % (Auto) Lymph % (Auto) [place] % (Auto) Eos % (Auto) Baso % (Auto) Absolute Neuts (auto) Absolute Lymphs (auto) Absolute Monos (auto) Absolute Eos (auto) Absolute Basos (auto) Absolute Nucleated RBC Nucleated RBC % INR (Anticoag Therapy) Sodium 137 Potassium 5.2 H Chloride 113 H Carbon Dioxide 17 L Anion Gap 7 BUN 26 H Creatinine 1.09 H Est GFR ( Amer) 68.1 Est GFR (Non-Af Amer) 52.9 BUN/Creatinine Ratio 23.9 H Glucose 147 H POC Glucose (mg/dL) 179 H 137 H Calcium 9.1 Total Bilirubin AST ALT Alkaline Phosphatase Total Protein Albumin Globulin Albumin/Globulin Ratio 02/11/17 02/11/17 02/11/17 05:30 05:30 05:30 WBC 6.0 RBC 3.91 L Hgb 10.1 L Hct 32 L MCV 81 MCH 26 L MCHC 32 RDW 21 H Plt Count 297 MPV 8 Neut % (Auto) 44.1 Lymph % (Auto) 36.0 Surry % (Auto) 8.9 Eos % (Auto) 9.0 H Baso % (Auto) 2.0 Absolute Neuts (auto) 2.7 Absolute Lymphs (auto) 2.2 Absolute Monos (auto) 0.5 Absolute Eos (auto) 0.5 Absolute Basos (auto) 0.1 Absolute Nucleated RBC 0 Nucleated RBC % 0 INR (Anticoag Therapy) 2.78 H Sodium 138 Potassium 4.4 Chloride 112 H Carbon Dioxide 22 Anion Gap 4 BUN 23 Creatinine 1.08 H Est GFR ( Amer) 68.8 Est GFR (Non-Af Amer) 53.5 BUN/Creatinine Ratio 21.3 H Glucose 93 POC Glucose (mg/dL) Calcium 9.0 Total Bilirubin 0.30 AST 16 ALT 20 Alkaline Phosphatase 89 Total Protein 6.8 Albumin 2.9 L Globulin 3.9 Albumin/Globulin Ratio 0.7 L 02/11/17 07:38 WBC RBC Hgb Hct MCV MCH MCHC RDW Plt Count MPV Neut % (Auto) Lymph % (Auto) [place] % (Auto) Eos % (Auto) Baso % (Auto) Absolute Neuts (auto) Absolute Lymphs (auto) Absolute Monos (auto) Absolute Eos (auto) Absolute Basos (auto) Absolute Nucleated RBC Nucleated RBC % INR (Anticoag Therapy) Sodium Potassium Chloride Carbon Dioxide Anion Gap BUN Creatinine Est GFR ( Amer) Est GFR (Non-Af Amer) BUN/Creatinine Ratio Glucose POC Glucose (mg/dL) 119 H Calcium Total Bilirubin AST ALT Alkaline Phosphatase Total Protein Albumin Globulin Albumin/Globulin Ratio Chest X-ray 02/05/17 showed right base atelectasis and s/p trans-sternal thoracotomy. 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 Had ANA also during her acute illness. A little better today. Continue off metformin. f/u labs Tuesday. #Chest and upper back pain episode 02/05 - this was brief and better with position change. Likely musculoskeletal given decreased mobility and sternotomy. CXR on 02/05 showed right base atelectasis. #Anxiety and depression - Prozac. Continue xanax 0.25mg q8h prn anxiety. #h/o Sepsis - continue ceftriaxone 2g q24h until 02/24/17. #Paroxysmal Atrial Fibrillation - INR therapeutic. Continue coumadin. INR Sat/ Sun. Amiodarone. #Right great toe amputation with healing wound and h/o osteomyelitis - Seen by Dr. Lucero. Dry dressing QD and WBAT with post-op shoe. #s/p AVR and aortic root replacement - Now 4wks post sternotomy. d/c sternal precautions. #Diabetes mellitus - continue Lantus/Lispro. #DVT ppx - coumadin. #Advanced directives - is hcp #Estimated discharge to home 03/04/17.
[2017-02-11] MEDS: Warfarin TAB(*) 7.5 MG PO SCH (16:36)
[2017-02-11] MEDS: Insulin GLARGINE(*) 1 UNITS UNIT SUBCUT SCH (21:30)
[2017-02-12] MEDS: Omeprazole CAP* 20 MG PO SCH (05:19)
[2017-02-12 05:50] LABS: INR 2.61 (0.77-1.02)
[2017-02-12] MEDS: Insulin LISPRO* 1 UNITS UNIT SUBCUT SCH ×4 (08:01→20:23)
[2017-02-12] MEDS: Multivitamins/Minerals TAB PO SCH (08:06)
[2017-02-12] MEDS: FLUoxetine CAP* 20 MG PO SCH (08:06)
[2017-02-12] MEDS: Metoprolol Tartrate TAB* 25 MG PO SCH ×2 (08:06→16:33)
[2017-02-12] MEDS: cefTRIAXone(*) 2 GM in NS 0.9% 100 ML* 100 ML IVPB SCH (08:06)
[2017-02-12] MEDS: Lactobacillus Acidophilu (GG)* 1 CAP CAP PO SCH (08:06)
[2017-02-12] MEDS: Amiodarone TAB* 200 MG PO SCH (08:06)
[2017-02-12] MEDS: Aspirin EC Low Dose* 81 MG TAB.EC PO SCH (08:06)
[2017-02-12] MEDS: Moisturizing CREAM* 120 GM JAR TOPICAL SCH ×2 (08:13→21:51)
--- NOTE | 2017-02-12 12:12 | PN ---
Progress Note - Progress Note Date of Service: 02/12/17 Note: Nursing and therapy notes reviewed. No chest pain today, shortness of breath or abdominal pain. Feeling sad today longing to go home. She graduated from speech services yesterday. She is doing well, but further evaluation and treatments are limited by visual impairment. Acetaminophen (Tylenol Tab*) 650 mg PO Q6H PRN PRN Reason: FEVER/PAIN Last Admin: 02/04/17 06:13 Dose: 650 mg Alprazolam (Xanax Tab*) 0.25 mg PO Q8H PRN PRN Reason: ANXIETY Last Admin: 02/06/17 19:44 Dose: 0.25 mg Amiodarone HCl (Cordarone Tab*) 200 mg PO DAILY [facility] Last Admin: 02/12/17 08:06 Dose: 200 mg Aspirin (Aspirin Ec Low Dose*) 81 mg PO DAILY [facility] Last Admin: 02/12/17 08:06 Dose: 81 mg Dextrose (D50w Syringe 50 Ml*) 12.5 gm IV PUSH .FOR FS < 60 - SS PRN PRN Reason: FS < 60 Docusate Sodium (Colace Cap*) 100 mg PO BID PRN PRN Reason: CONSTIPATION Fluoxetine HCl (Prozac Cap*) 20 mg PO DAILY [facility] Last Admin: 02/12/17 08:06 Dose: 20 mg Heparin Sodium (Porcine) (Heparin Flush Picc/Ml/Cvc(*)) 1 ml FLUSH 0900,2100 [facility] PRN Reason: Protocol Last Admin: 02/12/17 08:50 Dose: 1 ml Ceftriaxone Sodium 2 gm/ (Sodium Chloride) 100 mls @ 200 mls/hr IVPB Q24H [facility] Last Admin: 02/12/17 08:06 Dose: 200 mls/hr Insulin Glargine (Lantus(*)) 18 units SUBCUT Q24H [facility] Last Admin: 02/11/17 21:30 Dose: 18 units Insulin Human Lispro (Humalog*) 0 - 10 units SUBCUT ACHS [facility] PRN Reason: Protocol Last Admin: 02/12/17 12:10 Dose: 1 units Lactobacillus Rhamnosus (Culturelle*) 1 cap PO DAILY [facility] Last Admin: 02/12/17 08:06 Dose: 1 cap Magnesium Hydroxide (Milk Of Magnesia Liq*) 30 ml PO Q6H PRN PRN Reason: CONSTIPATION Metoprolol Tartrate (Lopressor Tab*) 25 mg PO Q8HR@0000,0800,1600 [facility] Last Admin: 02/12/17 08:06 Dose: 25 mg Multi-Ingredient Ointment (Hydrocerin*) 1 applic TOPICAL BID [facility] Last Admin: 02/12/17 08:13 Dose: 1 applic Multivitamins/Minerals (Theragran/Minerals Tab*) 1 tab PO DAILY [facility] Last Admin: 02/12/17 08:06 Dose: 1 tab Omeprazole (Prilosec Cap*) 20 mg PO 0600 [facility] Last Admin: 02/12/17 05:19 Dose: 20 mg Senna (Senokot Tab*) 2 tab PO BEDTIME PRN PRN Reason: CONSTIPATION Warfarin Sodium (Coumadin Tab(*)) 7.5 mg PO DAILY@1700 [facility] PRN Reason: Protocol Last Admin: 02/11/17 16:36 Dose: 7.5 mg Vital Signs 02/11/17 02/11/17 02/11/17 15:27 15:42 23:55 Temperature 97.6 F Pulse Rate 64 Respiratory 16 20 20 Rate Blood Pressure 117/67 (mmHg) O2 Sat by Pulse 97 Oximetry 02/11/17 02/12/17 02/12/17 23:59 05:22 06:26 Temperature 97.9 F Pulse Rate 70 Respiratory 20 Rate Blood Pressure 107/48 142/87 134/74 (mmHg) O2 Sat by Pulse 98 Oximetry 02/12/17 08:00 Temperature Pulse Rate Respiratory 20 Rate Blood Pressure (mmHg) O2 Sat by Pulse 98 Oximetry PE: GEN: no acute distress. alert and appropriate. LUNGS: clear to auscultation bilaterally. CV: regular rate and rhythm ABD: +BS, soft, non-tender, and non-distended EXT: Right great toe amputation. No edema. Laboratory Results - last 24 hr 02/11/17 02/11/17 02/11/17 12:11 16:32 20:49 INR (Anticoag Therapy) POC Glucose (mg/dL) 168 H 147 H 159 H 02/12/17 02/12/17 02/12/17 05:20 07:48 11:32 INR (Anticoag Therapy) 2.61 H POC Glucose (mg/dL) 117 H 143 H Chest X-ray 12/23/17 showed right base atelectasis and s/p trans-sternal thoracotomy. 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 Had ANA also during her acute illness. Continue off metformin. f/u labs Tuesday. #Chest and upper back pain episode 02/05 - this was brief and better with position change. Likely musculoskeletal given decreased mobility and sternotomy. CXR on 02/05 showed right base atelectasis. #Anxiety and depression - Prozac. Continue xanax 0.25mg q8h prn anxiety. #h/o Sepsis - continue ceftriaxone 2g q24h until 02/24/17. #Paroxysmal Atrial Fibrillation - INR therapeutic. Continue coumadin. INR Sat/ Sun. Amiodarone. #Right great toe amputation with healing wound and h/o osteomyelitis - Seen by Dr. Lucero. Dry dressing QD and WBAT with post-op shoe. #s/p AVR and aortic root replacement - More than 4wks post sternotomy. d/c'd sternal precautions. #Diabetes mellitus - continue Lantus/Lispro. #DVT ppx - coumadin. #Advanced directives - is hcp #Estimated discharge to home 03/04/17.
[2017-02-12] MEDS: Warfarin TAB(*) 7.5 MG PO SCH (16:33)
[2017-02-12] MEDS: Insulin GLARGINE(*) 1 UNITS UNIT SUBCUT SCH (21:51)
[2017-02-13] MEDS: Metoprolol Tartrate TAB* 25 MG PO SCH ×3 (00:40→17:11)
[2017-02-13] MEDS: Omeprazole CAP* 20 MG PO SCH (05:40)
[2017-02-13 06:22] LABS: EGFR Non-African American 53.5 (>60)
[2017-02-13 06:45] LABS: INR 2.64 (0.77-1.02)
[2017-02-13] MEDS: Insulin LISPRO* 1 UNITS UNIT SUBCUT SCH ×4 (08:00→21:14)
[2017-02-13] MEDS: Lactobacillus Acidophilu (GG)* 1 CAP CAP PO SCH (10:36)
[2017-02-13] MEDS: Aspirin EC Low Dose* 81 MG TAB.EC PO SCH (10:36)
[2017-02-13] MEDS: FLUoxetine CAP* 20 MG PO SCH (10:36)
[2017-02-13] MEDS: Multivitamins/Minerals TAB PO SCH (10:36)
[2017-02-13] MEDS: Amiodarone TAB* 200 MG PO SCH (10:36)
[2017-02-13] MEDS: Moisturizing CREAM* 120 GM JAR TOPICAL SCH ×2 (10:38→21:19)
[2017-02-13] MEDS: cefTRIAXone(*) 2 GM in NS 0.9% 100 ML* 100 ML IVPB SCH (10:42)
--- NOTE | 2017-02-13 11:53 | PN ---
Progress Note - Progress Note Date of Service: 02/13/17 Note: Nursing and therapy notes reviewed. No chest pain, shortness of breath or abdominal pain. She graduated from speech services, but further evaluation and treatments are limited by visual impairment. Nursing requests nystatin to groin and skin folds. Acetaminophen (Tylenol Tab*) 650 mg PO Q6H PRN PRN Reason: FEVER/PAIN Last Admin: 02/04/17 06:13 Dose: 650 mg Alprazolam (Xanax Tab*) 0.25 mg PO Q8H PRN PRN Reason: ANXIETY Last Admin: 02/06/17 19:44 Dose: 0.25 mg Amiodarone HCl (Cordarone Tab*) 200 mg PO DAILY [facility] Last Admin: 02/13/17 10:36 Dose: 200 mg Aspirin (Aspirin Ec Low Dose*) 81 mg PO DAILY [facility] Last Admin: 02/13/17 10:36 Dose: 81 mg Dextrose (D50w Syringe 50 Ml*) 12.5 gm IV PUSH .FOR FS < 60 - SS PRN PRN Reason: FS < 60 Docusate Sodium (Colace Cap*) 100 mg PO BID PRN PRN Reason: CONSTIPATION Fluoxetine HCl (Prozac Cap*) 20 mg PO DAILY [facility] Last Admin: 02/13/17 10:36 Dose: 20 mg Heparin Sodium (Porcine) (Heparin Flush Picc/Ml/Cvc(*)) 1 ml FLUSH 0900,2100 [facility] PRN Reason: Protocol Last Admin: 02/12/17 21:51 Dose: 1 ml Ceftriaxone Sodium 2 gm/ (Sodium Chloride) 100 mls @ 200 mls/hr IVPB Q24H [facility] Last Admin: 02/13/17 10:42 Dose: 200 mls/hr Insulin Glargine (Lantus(*)) 18 units SUBCUT Q24H [facility] Last Admin: 02/12/17 21:51 Dose: 18 units Insulin Human Lispro (Humalog*) 0 - 10 units SUBCUT ACHS [facility] PRN Reason: Protocol Last Admin: 02/13/17 08:00 Dose: Not Given Lactobacillus Rhamnosus (Culturelle*) 1 cap PO DAILY [facility] Last Admin: 02/13/17 10:36 Dose: 1 cap Magnesium Hydroxide (Milk Of Magnesia Liq*) 30 ml PO Q6H PRN PRN Reason: CONSTIPATION Metoprolol Tartrate (Lopressor Tab*) 25 mg PO Q8HR@0000,0800,1600 [facility] Last Admin: 02/13/17 10:37 Dose: 25 mg Multi-Ingredient Ointment (Hydrocerin*) 1 applic TOPICAL BID [facility] Last Admin: 02/13/17 10:38 Dose: 1 applic Multivitamins/Minerals (Theragran/Minerals Tab*) 1 tab PO DAILY [facility] Last Admin: 02/13/17 10:36 Dose: 1 tab Nystatin (Nystatin Top Powder*) 1 applic TOPICAL TID [facility] Omeprazole (Prilosec Cap*) 20 mg PO 0600 [facility] Last Admin: 02/13/17 05:40 Dose: 20 mg Senna (Senokot Tab*) 2 tab PO BEDTIME PRN PRN Reason: CONSTIPATION Warfarin Sodium (Coumadin Tab(*)) 7.5 mg PO DAILY@1700 [facility] PRN Reason: Protocol Last Admin: 02/12/17 16:33 Dose: 7.5 mg Vital Signs 02/12/17 02/12/17 02/13/17 15:44 19:29 06:03 Temperature 97.9 F 97.8 F Pulse Rate 65 73 Respiratory 20 18 Rate Blood Pressure 139/77 148/79 (mmHg) O2 Sat by Pulse 100 100 97 Oximetry PE: GEN: no acute distress. alert and appropriate. LUNGS: clear to auscultation bilaterally. CV: regular rate and rhythm ABD: +BS, soft, non-tender, and non-distended EXT: Right great toe amputation. No edema. SKIN: moist erythema in abdominal skin folds and groin c/w yeast. Laboratory Results - last 24 hr 02/12/17 02/12/17 02/13/17 16:18 20:23 05:40 INR (Anticoag Therapy) Sodium 139 Potassium 4.3 Chloride 111 Carbon Dioxide 23 Anion Gap 5 BUN 17 Creatinine 1.08 H Est GFR ( Amer) 68.8 Est GFR (Non-Af Amer) 53.5 BUN/Creatinine Ratio 15.7 Glucose 95 POC Glucose (mg/dL) 124 H 125 H Calcium 9.1 02/13/17 02/13/17 05:40 07:45 INR (Anticoag Therapy) 2.64 H Sodium Potassium Chloride Carbon Dioxide Anion Gap BUN Creatinine Est GFR ( Amer) Est GFR (Non-Af Amer) BUN/Creatinine Ratio Glucose POC Glucose (mg/dL) 105 H Calcium Chest X-ray 02/05/17 showed right base atelectasis and s/p trans-sternal thoracotomy. 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 #Acute renal failure - resolved with better po intake. Continue off metformin. #Chest and upper back pain episodes 02/05 - Likely musculoskeletal given decreased mobility and sternotomy. #Anxiety and depression - Prozac. Continue xanax 0.25mg q8h prn anxiety. #h/o Sepsis - continue ceftriaxone 2g q24h until 02/24/17. #Paroxysmal Atrial Fibrillation - INR therapeutic. Continue coumadin. INR M/W/ F. Amiodarone. #Right great toe amputation with healing wound and h/o osteomyelitis - Seen by Dr. Lucero. Dry dressing QD and WBAT with post-op shoe. #s/p AVR and aortic root replacement - More than 4wks post sternotomy. d/c'd sternal precautions. #Diabetes mellitus - continue Lantus/Lispro. #DVT ppx - coumadin. #Advanced directives - is hcp #Estimated discharge to home 03/04/17. She wants to go [facility].
[2017-02-13] MEDS: Nystatin TOP POWDER* 15 GM BTL TOPICAL SCH ×2 (13:51→21:14)
[2017-02-13] MEDS: Warfarin TAB(*) 7.5 MG PO SCH (17:11)
[2017-02-13] MEDS: Insulin GLARGINE(*) 1 UNITS UNIT SUBCUT SCH (21:14)
[2017-02-14] MEDS: Metoprolol Tartrate TAB* 25 MG PO SCH ×4 (00:15→23:38)
[2017-02-14] MEDS: Omeprazole CAP* 20 MG PO SCH (05:46)
[2017-02-14 06:32] LABS: INR 2.93 (0.77-1.02)
[2017-02-14] MEDS: Insulin LISPRO* 1 UNITS UNIT SUBCUT SCH ×4 (07:38→21:19)
[2017-02-14] MEDS: Aspirin EC Low Dose* 81 MG TAB.EC PO SCH (09:14)
[2017-02-14] MEDS: Multivitamins/Minerals TAB PO SCH (09:14)
[2017-02-14] MEDS: Amiodarone TAB* 200 MG PO SCH (09:14)
[2017-02-14] MEDS: Lactobacillus Acidophilu (GG)* 1 CAP CAP PO SCH (09:14)
[2017-02-14] MEDS: Nystatin TOP POWDER* 15 GM BTL TOPICAL SCH ×3 (09:14→21:30)
[2017-02-14] MEDS: FLUoxetine CAP* 20 MG PO SCH (09:14)
[2017-02-14] MEDS: Moisturizing CREAM* 120 GM JAR TOPICAL SCH ×2 (09:15→21:30)
[2017-02-14] MEDS: cefTRIAXone(*) 2 GM in NS 0.9% 100 ML* 100 ML IVPB SCH (09:16)
--- NOTE | 2017-02-14 14:33 | PN ---
Progress Note - Progress Note Date of Service: 02/14/17 Note: Karma visited. Nursing notes reviewed. She still has STM deficits but is doing better. She has done better with bladder continence. Tolerating Prozac. Current Medications Acetaminophen (Tylenol Tab*) 650 mg PO Q6H PRN PRN Reason: FEVER/PAIN Last Admin: 02/04/17 06:13 Dose: 650 mg Alprazolam (Xanax Tab*) 0.25 mg PO Q8H PRN PRN Reason: ANXIETY Last Admin: 02/06/17 19:44 Dose: 0.25 mg Amiodarone HCl (Cordarone Tab*) 200 mg PO DAILY [facility] Last Admin: 02/14/17 09:14 Dose: 200 mg Aspirin (Aspirin Ec Low Dose*) 81 mg PO DAILY [facility] Last Admin: 02/14/17 09:14 Dose: 81 mg Dextrose (D50w Syringe 50 Ml*) 12.5 gm IV PUSH .FOR FS < 60 - SS PRN PRN Reason: FS < 60 Docusate Sodium (Colace Cap*) 100 mg PO BID PRN PRN Reason: CONSTIPATION Fluoxetine HCl (Prozac Cap*) 20 mg PO DAILY [facility] Last Admin: 02/14/17 09:14 Dose: 20 mg Heparin Sodium (Porcine) (Heparin Flush Picc/Ml/Cvc(*)) 1 ml FLUSH 0900,2100 [facility] PRN Reason: Protocol Last Admin: 02/14/17 09:52 Dose: 1 ml Ceftriaxone Sodium 2 gm/ (Sodium Chloride) 100 mls @ 200 mls/hr IVPB Q24H [facility] Last Admin: 02/14/17 09:16 Dose: 200 mls/hr Insulin Glargine (Lantus(*)) 18 units SUBCUT Q24H [facility] Last Admin: 02/13/17 21:14 Dose: 18 units Insulin Human Lispro (Humalog*) 0 - 10 units SUBCUT ACHS [facility] PRN Reason: Protocol Last Admin: 02/14/17 11:51 Dose: 2 units Lactobacillus Rhamnosus (Culturelle*) 1 cap PO DAILY [facility] Last Admin: 02/14/17 09:14 Dose: 1 cap Magnesium Hydroxide (Milk Of Magnesia Liq*) 30 ml PO Q6H PRN PRN Reason: CONSTIPATION Metoprolol Tartrate (Lopressor Tab*) 25 mg PO Q8HR@0000,0800,1600 [facility] Last Admin: 02/14/17 09:14 Dose: 25 mg Multi-Ingredient Ointment (Hydrocerin*) 1 applic TOPICAL BID [facility] Last Admin: 02/14/17 09:15 Dose: 1 applic Multivitamins/Minerals (Theragran/Minerals Tab*) 1 tab PO DAILY [facility] Last Admin: 02/14/17 09:14 Dose: 1 tab Nystatin (Nystatin Top Powder*) 1 applic TOPICAL TID [facility] Last Admin: 02/14/17 14:08 Dose: 1 applic Omeprazole (Prilosec Cap*) 20 mg PO 0600 [facility] Last Admin: 02/14/17 05:46 Dose: 20 mg Senna (Senokot Tab*) 2 tab PO BEDTIME PRN PRN Reason: CONSTIPATION Warfarin Sodium (Coumadin Tab(*)) 4 mg PO DAILY@1700 [facility] PRN Reason: Protocol Warfarin Sodium (Coumadin Tab(*)) 3 mg PO DAILY@1700 [facility] Laboratory Results - last 24 hr 02/13/17 02/13/17 02/13/17 12:07 16:30 20:03 INR (Anticoag Therapy) POC Glucose (mg/dL) 134 H 135 H 140 H 02/14/17 02/14/17 02/14/17 05:53 07:36 11:35 INR (Anticoag Therapy) 2.93 H POC Glucose (mg/dL) 100 182 H Vital Signs Temp Pulse Resp BP Pulse Ox 97.5 F 69 18 105/67 97 02/14/17 06:03 02/14/17 06:03 02/14/17 06:03 02/14/17 06:03 02/14/17 10:00 EXAM: LUNGS: Clear bilat HEART: reg rhythm ABDOMEN: Soft +BS EXTREMITIES: Right foot wound ok ASSESSMENT/PLAN: 1. Bilateral CVA from Septic Emboli: PT/OT/TICKET [employer]ER. Seems more alert. 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 Atrial fibrillation: Amiodarone. Coumadin. Check INR on Tuesday 3. Diabetes Mellitus: Lantus 18 units at HS. Lispro SSI 4. Acute Kidney Injury: Cr WNL. 5. 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 DVT Prophylaxis: Coumadin 7. Advanced directives: is HCP 8. AVR with aortic root replacement: PT/OT. Sternal precautions d/c'd 9. Yeast: Nystatin
[2017-02-14] MEDS: Warfarin TAB(*) 3 MG PO SCH (16:41)
[2017-02-14] MEDS: Warfarin TAB(*) 4 MG PO SCH (16:41)
[2017-02-14] MEDS: Insulin GLARGINE(*) 1 UNITS UNIT SUBCUT SCH (21:30)
[2017-02-15] MEDS: Omeprazole CAP* 20 MG PO SCH (05:56)
[2017-02-15] MEDS: Insulin LISPRO* 1 UNITS UNIT SUBCUT SCH ×4 (07:35→21:12)
[2017-02-15] MEDS: Amiodarone TAB* 200 MG PO SCH (08:10)
[2017-02-15] MEDS: cefTRIAXone(*) 2 GM in NS 0.9% 100 ML* 100 ML IVPB SCH (08:10)
[2017-02-15] MEDS: Metoprolol Tartrate TAB* 25 MG PO SCH ×2 (08:10→16:52)
[2017-02-15] MEDS: Multivitamins/Minerals TAB PO SCH (08:10)
[2017-02-15] MEDS: Lactobacillus Acidophilu (GG)* 1 CAP CAP PO SCH (08:10)
[2017-02-15] MEDS: Aspirin EC Low Dose* 81 MG TAB.EC PO SCH (08:10)
[2017-02-15] MEDS: FLUoxetine CAP* 20 MG PO SCH (08:10)
[2017-02-15] MEDS: Moisturizing CREAM* 120 GM JAR TOPICAL SCH ×2 (09:48→21:16)
[2017-02-15] MEDS: Nystatin TOP POWDER* 15 GM BTL TOPICAL SCH ×3 (09:48→21:16)
--- NOTE | 2017-02-15 12:51 | PMRUTEAM ---
PMRU: Goals Current Status: Nursing: Current Status Skin Deviations [Lateral Bruise Abdomen] Skin Deviations [Right Foot] Wound Skin Deviations [Midline Chest Incision ] Skin Deviations [Left Upper Incision Chest] Skin Deviations [Medial Wound Buttocks] Skin Deviations [Right Upper Bruise Thigh] Skin Deviations [Bilateral Other Groin] Skin Deviation Description [ Nystatin powder in place Lateral Abdomen] Skin Deviation Description [ dry crusted peeling healing Right Foot] Skin Deviation Description [ scabbed healing Midline Chest] Skin Deviation Description [ scabbed healing Left Upper Chest] Skin Deviation Description [ split healing Medial Buttocks] Skin Deviation Description [ redness - skin prep applied Right Upper Thigh] Skin Deviation Description [ excoriation healed Bilateral Groin] skin prep for protection Bladder Current Status incontinent but also voids Bowel Current Status incontinent bm 02/07/17 Nutrition Current Status poor appetite Medication Current Status needs reinforcement Physical Therapy: Current Status Bed Mobility Assistance Min Assist Transfer Moblility Assistance Contact Guard Assist Transfer/Bed Mobility Rolling Walker,Platform Walker Recommended Devices Transfer Mobility Comment Pt. is able to perform a SPT using a 2 w/w S x 1. Ambulation Assistance Supervision Ambulation Assistive Devices Rolling Walker,Platform Walker Number of Feet Patient 60' Ambulated Ambulation Comment Improving reciprocal type gait pattern. Still slightly unsteady & fatigues Stairs Assistance Not Tested Curb Not Tested Occupational Therapy: Current Status Upper Body Dressing Supervision Lower Body Dressing Min Assist,Mod Assist Bathing Min Assist,Mod Assist Toileting Mod Assist,Max Asst Toilet Transfer Min Assist,Mod Assist Shower Transfer Min Assist,Mod Assist Eating Independent Rec Therapy: Current Status Summary of Assessment and RT assessment complete and pt. is aware of RT Clinical Impression services. Pt. is with visitors much of the time in the afternoons. Treatment Goals Pt. will engage in leisure activities while on the unit. Treatment Plan Provide RT services and encourage involvement. Social Work: Current Status Discharge Plan return home with home care svs and family support Potential for Family Training pt's family is involved and supportive Anticipated Discharge Home Destination Discharge With home care svs and family support Nutrition: Current Status Monitoring po intake appears somewhat improved; now fair to good intake with encouragement from family and staff. Eating ~50-75% of meals, so improved from last performed calorie count (which was only 450 kcals). Daily MVI cont to be accepted; Prozac started 02/10 (up to 20mg/day 02/12). Anticipate continued improvement of appetite. BG remains controlled (usually 100-140s). BMs 02/12-. Note tentative d/c 03/04. Speech: Current Status Assessment Patient has met her skilled speech-language pathology goals and will be discharged from skilled speech-language pathology services at this time. Discussed with PMRU team, Tova PT, Syl OT, and Wandy OT. Goals: Physical Therapy: Initial Goals Bed Mobility Assistance Independent Transfer Mobility Assistance Independent Transfer/Bed Mobility Rolling Walker Recommended Devices Ambulation Independent Ambulation Recommended Devices Rolling Walker Ambulation Distance 150 Stairs Assistance Independent Stair Recommended Devices Two Rails Number of Stairs 5 Physical Therapy: Updated Goals Bed Mobility Assistance Independent Transfer Mobility Assistance Independent Transfer/Bed Mobility Rolling Walker,EZ Stand Recommended Devices Ambulation Assistance Independent Ambulation Assistive Devices Rolling Walker Ambulation Distance (ft) 150 Stairs Assistance Independent Stairs Recommended Devices Two Rails Number of Stairs 5 Home Exercise Program Independent Assistance Occupational Therapy: Initial Goals Goals to be Completed in (Days 21-28 days ) Upper Body Bathing Routine Modified Independent with Lower Body Bathing Routine Minimal Contact Assist Upper Body Dressing Routine Modified Independent with Lower Body Dressing Routine Minimal Contact Assist Toilet Hygeine and Clothing Minimal Contact Assist Management Routine Toilet Transfer Routine Modified Independent with Tub Transfer Routine Modified Independent with Functional Transfers for ADL Modified Independent with Grooming Routine Modified Independent with Feeding Routine Independent Nursing: Goals Bladder Goal independent Bowel Goal independent Nutrition Goal 90% of all meals Medication Goal supervision Nutrition: Goals Intervention Goals 1. po intake will improve to >60% of meals 2. adequate po intake to maintain hydration and lean body mass without add'l wt gain 3. skin will show evidence of healing and without further breakdown 2. adequate glycemic control in PMRU setting without s/sx hypo- or hyperglycemia 2. maintain regulated bowel pattern without constipation/diarrhea Speech: Goals Speech Goal 1 Receptive Language Speech Current Status Goal 1 Met 02/08/17 Goal 1 Comments LTG: The patient will participate in functional daily activities without deficit with language comprehension skills. Status: Goal achieved, 02/08/17. Speech Goal 2 Memory Speech Goal 2 Current Status Met 02/11/17 Speech Goal 2 Comments LTG: The patient will participate in functional daily activities, independently utilizing compensatory strategies in order to recall important information successfully. Status: Goal achieved, 02/11/17. Patient will require assistance with recall of lengthier pieces of information due to decreased ability to write and read at this time secondary to poor vision. ST)The patient will learn and practice compensatory strategies for recall of information with greater than 90% accuracy, minimal cues. Status: Objective achieved, 02/09/17. 2)The patient will successfully complete working memory / recall tasks with 50% accuracy, minimal cues. Status: Temporal orientation, current personal/ surroundings questions: 100% accuracy, no cues; extra time provided. Working memory (auditory-based): *mental manipulation, word progression field of 3: 100% accuracy, no cues. *scrambled sentences field of 5 words: 100% accuracy, no cues. *paragraph retention (2-3 sentences at a time; independent use of verbal repetition strategy to retain information): 100% accuracy, no cues. *Lengthier information deferred due to patient's inability to write and/or read as strategies due to her poor vision at this time. Vision: Therapist asked patient to look at large, colorful picture cards: Patient noted to have increased vision to LEFT; tended to hold picture closer to her face in order to read smaller print. Patient scanned therapist's hand when starting on patient's LEFT side; patient reported that the hand disappeared once passing mid-line, toward right. Discussed with ARIAN Saba. Patient has met objective this date, 02/11/17. *Of note: This therapist changed patient's Problem Solving FIM goal from 7 to 5, as the patient is experiencing difficulties with her vision. Patient is able to verbally state appropriate solutions to complex problems; however, due to her vision she will likely require assistance with finances, medication management, etcetera for optimal safety and accuracy. Social Work: Goals Discharge Plan return home with home care svs and family support Potential for Family Training pt's family is involved and supportive Anticipated Discharge Home Destination Discharge With home care svs and family support Care Plan: Care Plan ADL's - Improve/Maintain Start: 02/04/17 16:05 Freq: DAILY Status: Active Target: Protocol: Activity Type Activity Date Activity User E-Sign Co-Sign Detail Recorded Client Recorded Date Recorded By Document 02/09/17 12:24 [id number] 02/09/17 12:24 [id number] 02/09/17 12:24 PMRU Outcome: ADL's/ADL Transfers Orders/Interventions Occupational Therapy Evaluation & Treatment Device Yes Patient to receive OT 5x/wk for 60-120 Therex min/day Self Care Management UE/LE ADL's with Assist Yes ADL Transfers with Assist Yes Toileting: Transfers,Clothing Management Yes ,Hygeine w/Assist Light Kitchen/Laundry w/Assist Yes Progression Toward Outcome/Goals Progressing Outcome/Goals Met Pt participated fair in OT treatment session, limited at times due to tearfulness and wanting to go home, encouragement provided and pt able to participate. Cardiovascular- Improve/Maintain Start: 02/04/17 10:46 Freq: DAILY Status: Active Target: Protocol: Activity Type Activity Date Activity User E-Sign Co-Sign Detail Recorded Client Recorded Date Recorded By Document 02/15/17 00:05 [id number] 02/15/17 00:07 [id number] 02/15/17 00:05 PMRU Outcome: Cardiovascular Vital Signs q Shift for 48hrs Then BID Yes Daily Weight Ordered No Current Cardiovascular Outcome/Goal Maintain/ Achieve Baseline HR, BP , Perfusion Free of Abnormal Cardiac Symptoms Progression Toward Outcome/Goal Progressing Communication-Improve/Maintain Start: 02/04/17 14:53 Freq: DAILY Status: Active Target: Protocol: Activity Type Activity Date Activity User E-Sign Co-Sign Detail Recorded Client Recorded Date Recorded By Document 02/15/17 00:05 [id number] 02/15/17 00:07 [id number] 02/15/17 00:05 PMRU Outcome: Communication/Cognitive Status Outcome/Goals Makes Needs Known Effectively Progression Toward Outcomes/Goals Progressing Outcome/Goals Met Use Comm Tools/ Devices Other Coping/Psych-Improve/Maintain Start: 02/04/17 10:46 Freq: DAILY Status: Active Target: Protocol: Activity Type Activity Date Activity User E-Sign Co-Sign Detail Recorded Client Recorded Date Recorded By Document 02/15/17 00:05 [id number] 02/15/17 00:07 [id number] 02/15/17 00:05 PMRU Outcome: Coping/Psychosocial Coping Outcome/Goals Verbalization of Acceptance of Rehab Admit Verbalization of Sense of Control Over Health Status Utilization of Appropriate Problem Solving Techniques Willingness to Participate in Treatment Plan and Basic Needs Utilization of Available Support Systems Psychosocial Outcome/Goals Maintain/ Improve Emotional Health Demonstrates Knowledge of Healthy Coping Mechanisms Available Cooperate/ Participate in Plan Progression Toward Outcome/Goals - Progressing Coping Progression Toward Outcome/Goals - Progressing Psychosocial DVT Prophylaxis- Improve/Maintain Start: 02/04/17 10:46 Freq: DAILY Status: Active Target: Protocol: Activity Type Activity Date Activity User E-Sign Co-Sign Detail Recorded Client Recorded Date Recorded By Document 02/15/17 00:05 [id number] 02/15/17 00:07 [id number] 02/15/17 00:05 PMRU Outcome: DVT Prophylaxis Outcome/Goals Remains Free of DVT Complies with DVT Prophylaxis /Treatment Demonstrates Knowledge of DVT Prevention/ Treatment Other Outcome/Goals rina wraps Progression Toward Outcome/Goals Progressing Discharge Planning - Improve/Maintain Start: 02/04/17 10:46 Freq: DAILY Status: Active Target: Protocol: Activity Type Activity Date Activity User E-Sign Co-Sign Detail Recorded Client Recorded Date Recorded By Document 02/15/17 00:05 [id number] 02/15/17 00:07 [id number] 02/15/17 00:05 PMRU Outcome: Discharge Planning Identify Patient Needs yes Update Patient Family No Outcome/Goals Demonstrates Understanding of Discharge Plan Progression Toward Outcome/Goals Progressing Education-Improve/Maintain Start: 02/04/17 10:46 Freq: DAILY Status: Active Target: Protocol: Activity Type Activity Date Activity User E-Sign Co-Sign Detail Recorded Client Recorded Date Recorded By Document 02/15/17 00:05 [id number] 02/15/17 00:07 [id number] 02/15/17 00:05 PMRU Outcome: Education Outcome/Goals Encourage Questions Progression Toward Outcome/Goals Progressing /GI-Improve/Maintain Start: 02/04/17 10:46 Freq: DAILY Status: Active Target: Protocol: Activity Type Activity Date Activity User E-Sign Co-Sign Detail Recorded Client Recorded Date Recorded By Document 02/15/17 00:05 [id number] 02/15/17 00:07 [id number] 02/15/17 00:05 PMRU Outcome: Genitourinary/ Gastrointestinal Genitourinary- Outcome/Goals Maintain/ Achieve Urinary Continence Remain Free of Hospital- Acquired UTI Gastrointestinal-Outcome/Goals Maintain/ Achieve Bowel Regularity in Accordance with Pt's Baseline Prevent Constipation Progression Toward Outcome/Goals - Progressing Progression Toward Outcome/Goals - GI Progressing Outcome/Goals Met Comment pt up to BR Medication Administration Start: 12/22/17 10:46 Freq: DAILY Status: Active Target: Protocol: Activity Type Activity Date Activity User E-Sign Co-Sign Detail Recorded Client Recorded Date Recorded By Document 02/15/17 00:05 [id number] [id number] 02/15/17 00:07 [id number] 02/15/17 00:05 PMRU Outcome: Medication Administration Assess Patient Knowledge/Teach Med Yes Education for all Meds Outcome/Goals Family/ Caregiver Administer Medications at Home Demonstrates Understanding Other Outcome/Goals to assist at home with fingersticks and meds Progression Towards Outcome/Goals Progressing Is Patient Going Home on Lovenox? No Metabolic Status- Improve/Maintain Start: 02/04/17 10:46 Freq: DAILY Status: Active Target: Protocol: Activity Type Activity Date Activity User E-Sign Co-Sign Detail Recorded Client Recorded Date Recorded By Document 02/15/17 00:05 [id number] [email or web address] 02/15/17 00:07 [id number] 02/15/17 00:05 PMRU Outcome: Metabolic Status Have Fingersticks Been Ordered Yes Fingerstick Order Frequency AC & HS Outcome/Goals Maintain/ Improve Metabolic Status Demonstrate Knowledge of Prevention/ Treatment of Metabolic Imbalances Other Outcome/Goals to assist with fingersticks at home Progression Toward Outcome/Goals Progressing Mobility- Improve/Maintain Start: 02/05/17 18:05 Freq: DAILY Status: Active Target: Protocol: Activity Type Activity Date Activity User E-Sign Co-Sign Detail Recorded Client Recorded Date Recorded By Document 02/11/17 12:28 [id number] 02/11/17 12:28 [id number] 02/11/17 12:28 PMRU Outcome: Mobility Physical Therapy Evaluation and Yes Treatment Activity OOB with Assistance Yes Device Yes Assistance Yes Patient to be seen 5x/wk for 60-120 min/ Therex day for: Mobility Training Gait Training Balance Other Therapy Comment patient is weightbearing through heel of RLE only. Outcome/Goals Maintain/ Achieve Baseline Mobility Status Improve Mobility Status Demonstrates Proper Use of Assistive Devices Free from Complications of Immobility Progression Toward Outcome/Goals Progressing Bed Mobility Yes: independent Transfers Yes: independent with rolling walker Gait x ft Yes: independent with rollingwalker 150' Up/Down Stairs Yes: independent up/ down 5 stairs with 2 rails. Nutrition/Swallowing- Improve/Maintain Start: 02/04/17 10:46 Freq: DAILY Status: Active Target: Protocol: Activity Type Activity Date Activity User E-Sign Co-Sign Detail Recorded Client Recorded Date Recorded By Document 02/15/17 00:05 [id number] [id number] 02/15/17 00:07 [id number] 02/15/17 00:05 PMRU Outcome: Nutrition/Swallowing Outcome/Goals Demonstrates Adequate Hydration/ Prevents Dehydration Maintain/ Improve Nutritional Status Progression Toward Outcome/Goals Progressing Respiratory - Improve/Maintain Start: 02/04/17 10:46 Freq: DAILY Status: Active Target: Protocol: Activity Type Activity Date Activity User E-Sign Co-Sign Detail Recorded Client Recorded Date Recorded By Document 02/15/17 00:05 [id number] 02/15/17 00:07 [id number] 02/15/17 00:05 PMRU Outcome: Respiratory Does Patient Have a Trach No Outcome/Goals Maintain/ Improve Baseline Respiratory Status Maintain/ Improve Activity Tolerance Prevent Pneumonia/ Atelectasis Progression Toward Outcome/Goals Progressing Safety- Improve/Maintain Start: 02/04/17 10:46 Freq: DAILY Status: Active Target: Protocol: Activity Type Activity Date Activity User E-Sign Co-Sign Detail Recorded Client Recorded Date Recorded By Document 02/15/17 00:05 [id number] [email or web address] 02/15/17 00:07 [id number] 02/15/17 00:05 PMRU Outcome: Safety Outcome/Goals Remain Free of Injury or Harm Prevent Falls/ Injury Progression Toward Outcome/Goals Progressing Outcome/Goals Met Comment PA in place, in room Skin- Improve/Maintain Start: 02/04/17 10:46 Freq: DAILY Status: Active Target: Protocol: Activity Type Activity Date Activity User E-Sign Co-Sign Detail Recorded Client Recorded Date Recorded By Document 02/15/17 00:05 [id number] [email or web address] 02/15/17 00:07 [id number] 02/15/17 00:05 PMRU Outcome: Skin Skin Risk Level Medium Skin Orders Dressing Change Turn/Position q2hr While in Bed Outcome/Goals Maintain/ Improve Skin Intergrity Maintain/ Improve Wound Status Surgical Incisions Healing Progression Toward Outcome/Goals Progressing Medicine Note: Length of Stay: 2 1/2 weeks Anticipated Discharge Destination: Home Tentative Discharge Date: 03/04/16 Discharged to: Home
[2017-02-15] MEDS: Warfarin TAB(*) 4 MG PO SCH (16:51)
--- NOTE | 2017-02-15 16:51 | PN ---
Progress Note - Progress Note Date of Service: 02/15/17 Note: Karma visited. She was discussed in interdisciplinary team rounds. She is making some gains but has difficulty with vision. Will try to arrange vision therapy after discharge. On Prozac, remains down. Current Medications Acetaminophen (Tylenol Tab*) 650 mg PO Q6H PRN PRN Reason: FEVER/PAIN Last Admin: 02/04/17 06:13 Dose: 650 mg Alprazolam (Xanax Tab*) 0.25 mg PO Q8H PRN PRN Reason: ANXIETY Last Admin: 02/06/17 19:44 Dose: 0.25 mg Amiodarone HCl (Cordarone Tab*) 200 mg PO DAILY [facility] Last Admin: 02/15/17 08:10 Dose: 200 mg Aspirin (Aspirin Ec Low Dose*) 81 mg PO DAILY [facility] Last Admin: 02/15/17 08:10 Dose: 81 mg Dextrose (D50w Syringe 50 Ml*) 12.5 gm IV PUSH .FOR FS < 60 - SS PRN PRN Reason: FS < 60 Docusate Sodium (Colace Cap*) 100 mg PO BID PRN PRN Reason: CONSTIPATION Fluoxetine HCl (Prozac Cap*) 20 mg PO DAILY [facility] Last Admin: 02/15/17 08:10 Dose: 20 mg Heparin Sodium (Porcine) (Heparin Flush Picc/Ml/Cvc(*)) 1 ml FLUSH 0900,2100 [facility] PRN Reason: Protocol Last Admin: 02/15/17 08:57 Dose: 1 ml Ceftriaxone Sodium 2 gm/ (Sodium Chloride) 100 mls @ 200 mls/hr IVPB Q24H [facility] Last Admin: 02/15/17 08:10 Dose: 200 mls/hr Insulin Glargine (Lantus(*)) 18 units SUBCUT Q24H [facility] Last Admin: 02/14/17 21:30 Dose: 18 units Insulin Human Lispro (Humalog*) 0 - 10 units SUBCUT ACHS [facility] PRN Reason: Protocol Last Admin: 02/15/17 12:17 Dose: 1 units Lactobacillus Rhamnosus (Culturelle*) 1 cap PO DAILY [facility] Last Admin: 02/15/17 08:10 Dose: 1 cap Magnesium Hydroxide (Milk Of Magnesia Liq*) 30 ml PO Q6H PRN PRN Reason: CONSTIPATION Metoprolol Tartrate (Lopressor Tab*) 25 mg PO Q8HR@0000,0800,1600 [facility] Last Admin: 02/15/17 08:10 Dose: 25 mg Multi-Ingredient Ointment (Hydrocerin*) 1 applic TOPICAL BID [facility] Last Admin: 02/15/17 09:48 Dose: 1 applic Multivitamins/Minerals (Theragran/Minerals Tab*) 1 tab PO DAILY [facility] Last Admin: 02/15/17 08:10 Dose: 1 tab Nystatin (Nystatin Top Powder*) 1 applic TOPICAL TID [facility] Last Admin: 02/15/17 14:12 Dose: 1 applic Omeprazole (Prilosec Cap*) 20 mg PO 0600 [facility] Last Admin: 02/15/17 05:56 Dose: 20 mg Senna (Senokot Tab*) 2 tab PO BEDTIME PRN PRN Reason: CONSTIPATION Warfarin Sodium (Coumadin Tab(*)) 4 mg PO DAILY@1700 [facility] PRN Reason: Protocol Last Admin: 02/14/17 16:41 Dose: 4 mg Warfarin Sodium (Coumadin Tab(*)) 3 mg PO DAILY@1700 [facility] Last Admin: 02/14/17 16:41 Dose: 3 mg Laboratory Results - last 24 hr 02/14/17 02/14/17 02/15/17 16:41 20:22 07:34 POC Glucose (mg/dL) 157 H 120 H 128 H 02/15/17 11:38 POC Glucose (mg/dL) 148 H Vital Signs Temp Pulse Resp BP Pulse Ox 98.3 F 58 18 132/65 98 02/15/17 15:05 02/15/17 15:05 02/15/17 15:39 02/15/17 15:05 02/15/17 15:39 EXAM: LUNGS: Clear bilat HEART: reg rhythm ABDOMEN: Soft +BS EXTREMITIES: Right foot wound ok ASSESSMENT/PLAN: 1. 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 Seems more alert. 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 Atrial fibrillation: Amiodarone. Coumadin. Check INR tomorrow 3. Diabetes Mellitus: Lantus 18 units at HS. Lispro SSI 4. Acute Kidney Injury: Cr WNL. 5. 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 DVT Prophylaxis: Coumadin 7. Advanced directives: is HCP 8. AVR with aortic root replacement: PT/OT. Sternal precautions d/c'd 9. Yeast: Nystatin
[2017-02-15] MEDS: Warfarin TAB(*) 3 MG PO SCH (16:52)
[2017-02-15] MEDS: Insulin GLARGINE(*) 1 UNITS UNIT SUBCUT SCH (21:12)
[2017-02-16] MEDS: Metoprolol Tartrate TAB* 25 MG PO SCH ×3 (00:47→16:33)
[2017-02-16] MEDS: Omeprazole CAP* 20 MG PO SCH (06:07)
[2017-02-16] MEDS: Insulin LISPRO* 1 UNITS UNIT SUBCUT SCH ×4 (07:57→21:58)
[2017-02-16] MEDS: FLUoxetine CAP* 20 MG PO SCH (08:05)
[2017-02-16] MEDS: Amiodarone TAB* 200 MG PO SCH (08:05)
[2017-02-16] MEDS: Lactobacillus Acidophilu (GG)* 1 CAP CAP PO SCH (08:05)
[2017-02-16] MEDS: Multivitamins/Minerals TAB PO SCH (08:05)
[2017-02-16] MEDS: Aspirin EC Low Dose* 81 MG TAB.EC PO SCH (08:05)
[2017-02-16] MEDS: Moisturizing CREAM* 120 GM JAR TOPICAL SCH ×2 (08:35→21:58)
[2017-02-16] MEDS: Nystatin TOP POWDER* 15 GM BTL TOPICAL SCH ×3 (08:41→21:52)
[2017-02-16] MEDS: cefTRIAXone(*) 2 GM in NS 0.9% 100 ML* 100 ML IVPB SCH (08:41)
[2017-02-16 11:46] LABS: INR 2.06 (0.77-1.02)
[2017-02-16] MEDS: Warfarin TAB(*) 3 MG PO SCH (16:33)
--- NOTE | 2017-02-16 20:38 | PN ---
Progress Note - Progress Note Date of Service: 02/16/17 Note: Karma visited. Therapy notes read and reviewed. She is in better spirits tonight but worried about her job. Reinforced that she needs to concentrate on getting better Current Medications Acetaminophen (Tylenol Tab*) 650 mg PO Q6H PRN PRN Reason: FEVER/PAIN Last Admin: 02/04/17 06:13 Dose: 650 mg Alprazolam (Xanax Tab*) 0.25 mg PO Q8H PRN PRN Reason: ANXIETY Last Admin: 02/06/17 19:44 Dose: 0.25 mg Amiodarone HCl (Cordarone Tab*) 200 mg PO DAILY [facility] Last Admin: 02/16/17 08:05 Dose: 200 mg Aspirin (Aspirin Ec Low Dose*) 81 mg PO DAILY [facility] Last Admin: 02/16/17 08:05 Dose: 81 mg Dextrose (D50w Syringe 50 Ml*) 12.5 gm IV PUSH .FOR FS < 60 - SS PRN PRN Reason: FS < 60 Docusate Sodium (Colace Cap*) 100 mg PO BID PRN PRN Reason: CONSTIPATION Fluoxetine HCl (Prozac Cap*) 20 mg PO DAILY [facility] Last Admin: 02/16/17 08:05 Dose: 20 mg Heparin Sodium (Porcine) (Heparin Flush Picc/Ml/Cvc(*)) 1 ml FLUSH 0900,2100 [facility] PRN Reason: Protocol Last Admin: 02/16/17 08:41 Dose: 1 ml Ceftriaxone Sodium 2 gm/ (Sodium Chloride) 100 mls @ 200 mls/hr IVPB Q24H [facility] Last Admin: 02/16/17 08:41 Dose: 200 mls/hr Insulin Glargine (Lantus(*)) 18 units SUBCUT Q24H [facility] Last Admin: 02/15/17 21:12 Dose: 18 units Insulin Human Lispro (Humalog*) 0 - 10 units SUBCUT ACHS [facility] PRN Reason: Protocol Last Admin: 02/16/17 16:36 Dose: Not Given Lactobacillus Rhamnosus (Culturelle*) 1 cap PO DAILY [facility] Last Admin: 02/16/17 08:05 Dose: 1 cap Magnesium Hydroxide (Milk Of Magnesia Liq*) 30 ml PO Q6H PRN PRN Reason: CONSTIPATION Metoprolol Tartrate (Lopressor Tab*) 25 mg PO Q8HR@0000,0800,1600 [facility] Last Admin: 02/16/17 16:33 Dose: 25 mg Multi-Ingredient Ointment (Hydrocerin*) 1 applic TOPICAL BID [facility] Last Admin: 02/16/17 08:35 Dose: 1 applic Multivitamins/Minerals (Theragran/Minerals Tab*) 1 tab PO DAILY [facility] Last Admin: 02/16/17 08:05 Dose: 1 tab Nystatin (Nystatin Top Powder*) 1 applic TOPICAL TID [facility] Last Admin: 02/16/17 14:29 Dose: 1 applic Omeprazole (Prilosec Cap*) 20 mg PO 0600 [facility] Last Admin: 02/16/17 06:07 Dose: 20 mg Senna (Senokot Tab*) 2 tab PO BEDTIME PRN PRN Reason: CONSTIPATION Warfarin Sodium (Coumadin Tab(*)) 9 mg PO DAILY@1700 [facility] Last Admin: 02/16/17 16:33 Dose: 9 mg Laboratory Results - last 24 hr 02/15/17 02/16/17 02/16/17 20:34 07:48 08:10 INR (Anticoag Therapy) 2.06 H POC Glucose (mg/dL) 163 H 120 H 02/16/17 02/16/17 02/16/17 11:28 16:36 20:13 INR (Anticoag Therapy) POC Glucose (mg/dL) 142 H 108 H 123 H Vital Signs Temp Pulse Resp BP Pulse Ox 98.6 F 65 18 123/73 98 02/16/17 15:44 02/16/17 15:44 02/16/17 16:42 02/16/17 15:44 02/16/17 16:42 EXAM: LUNGS: Clear bilat HEART: reg rhythm ABDOMEN: Soft +BS EXTREMITIES: Right foot wound ok ASSESSMENT/PLAN: 1. 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 Seems more alert. 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 Atrial fibrillation: Amiodarone. Coumadin. INR fell. WIll increase Coumadin 3. Diabetes Mellitus: Lantus 18 units at HS. Lispro SSI 4. Acute Kidney Injury: Cr WNL. 5. 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 DVT Prophylaxis: Coumadin 9 mg 7. Advanced directives: is HCP 8. AVR with aortic root replacement: PT/OT. Sternal precautions d/c'd 9. Yeast: Nystatin
[2017-02-16] MEDS: Insulin GLARGINE(*) 1 UNITS UNIT SUBCUT SCH (21:51)
[2017-02-17] MEDS: Metoprolol Tartrate TAB* 25 MG PO SCH ×3 (00:35→16:52)
[2017-02-17] MEDS: Omeprazole CAP* 20 MG PO SCH (06:10)
[2017-02-17] MEDS: Insulin LISPRO* 1 UNITS UNIT SUBCUT SCH ×4 (08:02→20:44)
[2017-02-17] MEDS: cefTRIAXone(*) 2 GM in NS 0.9% 100 ML* 100 ML IVPB SCH (08:26)
[2017-02-17] MEDS: Aspirin EC Low Dose* 81 MG TAB.EC PO SCH (08:30)
[2017-02-17] MEDS: Lactobacillus Acidophilu (GG)* 1 CAP CAP PO SCH (08:30)
[2017-02-17] MEDS: Nystatin TOP POWDER* 15 GM BTL TOPICAL SCH ×3 (08:30→20:56)
[2017-02-17] MEDS: FLUoxetine CAP* 20 MG PO SCH (08:30)
[2017-02-17] MEDS: Multivitamins/Minerals TAB PO SCH (08:30)
[2017-02-17] MEDS: Amiodarone TAB* 200 MG PO SCH (08:30)
[2017-02-17] MEDS: Moisturizing CREAM* 120 GM JAR TOPICAL SCH ×2 (08:31→20:47)
[2017-02-17] MEDS: Warfarin TAB(*) 3 MG PO SCH (16:52)
--- NOTE | 2017-02-17 20:16 | PN ---
Progress Note - Progress Note Date of Service: 02/17/17 Note: Karma visited. Therapy notes read and reviewed. She remains slightly anxious and wishes to go home. Her right foot had no drainage today but had drainage yesterday, by report. There is a new open area on dorsum of left foot. Current Medications Acetaminophen (Tylenol Tab*) 650 mg PO Q6H PRN PRN Reason: FEVER/PAIN Last Admin: 02/04/17 06:13 Dose: 650 mg Alprazolam (Xanax Tab*) 0.25 mg PO Q8H PRN PRN Reason: ANXIETY Last Admin: 02/06/17 19:44 Dose: 0.25 mg Amiodarone HCl (Cordarone Tab*) 200 mg PO DAILY [facility] Last Admin: 02/17/17 08:30 Dose: 200 mg Aspirin (Aspirin Ec Low Dose*) 81 mg PO DAILY [facility] Last Admin: 02/17/17 08:30 Dose: 81 mg Dextrose (D50w Syringe 50 Ml*) 12.5 gm IV PUSH .FOR FS < 60 - SS PRN PRN Reason: FS < 60 Docusate Sodium (Colace Cap*) 100 mg PO BID PRN PRN Reason: CONSTIPATION Fluoxetine HCl (Prozac Cap*) 20 mg PO DAILY [facility] Last Admin: 02/17/17 08:30 Dose: 20 mg Heparin Sodium (Porcine) (Heparin Flush Picc/Ml/Cvc(*)) 1 ml FLUSH 0900,2100 [facility] PRN Reason: Protocol Last Admin: 02/17/17 09:07 Dose: 1 ml Ceftriaxone Sodium 2 gm/ (Sodium Chloride) 100 mls @ 200 mls/hr IVPB Q24H [facility] Last Admin: 02/17/17 08:26 Dose: 200 mls/hr Insulin Glargine (Lantus(*)) 18 units SUBCUT Q24H [facility] Last Admin: 02/16/17 21:51 Dose: 18 units Insulin Human Lispro (Humalog*) 0 - 10 units SUBCUT ACHS [facility] PRN Reason: Protocol Last Admin: 02/17/17 16:52 Dose: Not Given Lactobacillus Rhamnosus (Culturelle*) 1 cap PO DAILY [facility] Last Admin: 02/17/17 08:30 Dose: 1 cap Magnesium Hydroxide (Milk Of Magnesia Liq*) 30 ml PO Q6H PRN PRN Reason: CONSTIPATION Metoprolol Tartrate (Lopressor Tab*) 25 mg PO Q8HR@0000,0800,1600 [facility] Last Admin: 02/17/17 16:52 Dose: 25 mg Multi-Ingredient Ointment (Hydrocerin*) 1 applic TOPICAL BID [facility] Last Admin: 02/17/17 08:31 Dose: 1 applic Multivitamins/Minerals (Theragran/Minerals Tab*) 1 tab PO DAILY [facility] Last Admin: 02/17/17 08:30 Dose: 1 tab Nystatin (Nystatin Top Powder*) 1 applic TOPICAL TID [facility] Last Admin: 02/17/17 14:31 Dose: 1 applic Omeprazole (Prilosec Cap*) 20 mg PO 0600 [facility] Last Admin: 02/17/17 06:10 Dose: 20 mg Senna (Senokot Tab*) 2 tab PO BEDTIME PRN PRN Reason: CONSTIPATION Warfarin Sodium (Coumadin Tab(*)) 9 mg PO DAILY@1700 [facility] Last Admin: 02/17/17 16:52 Dose: 9 mg Glucose Results Blood Glucose Monitoring POC Start: 02/03/17 17: 48 Freq: ACHS Status: Active Protocol: Document 02/16/17 20:13 [id number] (Rec: 02/16/17 20:13 [id number] [id number]) Blood Glucose Monitoring POC Glucose Obtained Yes Glucose Result Being Addressed/Treated ( 123 mg/dL) Blood Glucose Method POC Glucose (bedside) Document 02/17/17 08:02 [id number] (Rec: 02/17/17 08:02 [id number] [id number]-C07) Blood Glucose Monitoring POC Glucose Obtained Yes Glucose Result Being Addressed/Treated ( 113 mg/dL) Blood Glucose Method POC Glucose (bedside) Document 02/17/17 11:46 [id number] (Rec: 02/17/17 11:46 [id number] [id number]) Blood Glucose Monitoring POC Glucose Obtained Yes Glucose Result Being Addressed/Treated ( 131 mg/dL) Blood Glucose Method POC Glucose (bedside) Document 02/17/17 16:30 [id number] (Rec: 02/17/17 16:52 [id number]) Blood Glucose Monitoring POC Glucose Obtained Yes Glucose Result Being Addressed/Treated ( 104 mg/dL) Blood Glucose Method POC Glucose (bedside) Vital Signs Temp Pulse Resp BP Pulse Ox 97.9 F 64 20 121/58 99 02/17/17 15:52 02/17/17 15:52 02/17/17 15:52 02/17/17 15:52 02/17/17 15:52 EXAM: LUNGS: Clear bilat HEART: reg rhythm ABDOMEN: Soft +BS EXTREMITIES: Right foot wound ok ASSESSMENT/PLAN: 1. 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 Atrial fibrillation: Amiodarone. Coumadin. Check INR in am. 3. Diabetes Mellitus: Lantus 18 units at HS. Lispro SSI 4. Acute Kidney Injury: Cr WNL. 5. 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 DVT Prophylaxis: Coumadin 9 mg 7. Advanced directives: is HCP 8. AVR with aortic root replacement: PT/OT. Sternal precautions d/c'd 9. Yeast: Nystatin
[2017-02-17] MEDS: Insulin GLARGINE(*) 1 UNITS UNIT SUBCUT SCH (20:44)
[2017-02-18] MEDS: Metoprolol Tartrate TAB* 25 MG PO SCH ×4 (01:01→23:41)
[2017-02-18] MEDS: Omeprazole CAP* 20 MG PO SCH (05:23)
[2017-02-18 05:36] LABS: ABS Basophils 0 10^3/ul (0-0.2); ABS Eosinophils 0.4 10^3/ul (0-0.6); ABS Lymphocytes 1.7 10^3/ul (1.0-4.8); ABS Monocytes 0.4 10^3/ul (0-0.8); ABS Neutrophils 2.6 10^3/ul (1.5-7.7); ABS Nucleated RBC 0 10^3/ul; Hematocrit 32 % (35-47); Hemoglobin 10.3 g/dl (12.0-16.0); Lymphocyte % 33.6 % (25-47); Mean Corpuscular HGB Conc 33 g/dl (31-36); Mean Corpuscular Hemoglobin 26 pg (27-31); Mean Corpuscular Volume 80 fL (80-97); Mean Platelet Volume 8 um3 (7.4-10.4); Nucleated Red Blood Cells % 0.1; Platelet Count 248 10^3/ul (150-450); Red Blood Count 3.94 10^6/ul (4.0-5.4); Red Cell Distribution Width 20 % (10.5-15); White Blood Count 5.2 10^3/ul (3.5-10.8)
[2017-02-18 05:41] LABS: INR 2.11 (0.77-1.02)
[2017-02-18 05:50] LABS: EGFR Non-African American 52.4 (>60)
[2017-02-18] MEDS: Insulin LISPRO* 1 UNITS UNIT SUBCUT SCH ×4 (07:28→20:59)
[2017-02-18] MEDS: FLUoxetine CAP* 20 MG PO SCH (08:11)
[2017-02-18] MEDS: Nystatin TOP POWDER* 15 GM BTL TOPICAL SCH ×3 (08:11→20:58)
[2017-02-18] MEDS: Multivitamins/Minerals TAB PO SCH (08:11)
[2017-02-18] MEDS: Aspirin EC Low Dose* 81 MG TAB.EC PO SCH (08:11)
[2017-02-18] MEDS: Lactobacillus Acidophilu (GG)* 1 CAP CAP PO SCH (08:11)
[2017-02-18] MEDS: Amiodarone TAB* 200 MG PO SCH (08:11)
[2017-02-18] MEDS: Moisturizing CREAM* 120 GM JAR TOPICAL SCH ×2 (08:11→20:59)
[2017-02-18] MEDS: cefTRIAXone(*) 2 GM in NS 0.9% 100 ML* 100 ML IVPB SCH (08:13)
--- NOTE | 2017-02-18 14:29 | PN ---
Progress Note - Progress Note Date of Service: 02/18/17 Note: Karma visited. I called Dr. Lucero about the appearance of her right foot. She remains on IV antibiotics. A little down about things, on Prozac. Vision a problem Current Medications Acetaminophen (Tylenol Tab*) 650 mg PO Q6H PRN PRN Reason: FEVER/PAIN Last Admin: 02/04/17 06:13 Dose: 650 mg Alprazolam (Xanax Tab*) 0.25 mg PO Q8H PRN PRN Reason: ANXIETY Last Admin: 02/06/17 19:44 Dose: 0.25 mg Amiodarone HCl (Cordarone Tab*) 200 mg PO DAILY [facility] Last Admin: 02/18/17 08:11 Dose: 200 mg Aspirin (Aspirin Ec Low Dose*) 81 mg PO DAILY [facility] Last Admin: 02/18/17 08:11 Dose: 81 mg Dextrose (D50w Syringe 50 Ml*) 12.5 gm IV PUSH .FOR FS < 60 - SS PRN PRN Reason: FS < 60 Docusate Sodium (Colace Cap*) 100 mg PO BID PRN PRN Reason: CONSTIPATION Fluoxetine HCl (Prozac Cap*) 20 mg PO DAILY [facility] Last Admin: 02/18/17 08:11 Dose: 20 mg Heparin Sodium (Porcine) (Heparin Flush Picc/Ml/Cvc(*)) 1 ml FLUSH 0900,2100 [facility] PRN Reason: Protocol Last Admin: 02/18/17 09:07 Dose: 1 ml Ceftriaxone Sodium 2 gm/ (Sodium Chloride) 100 mls @ 200 mls/hr IVPB Q24H [facility] Last Admin: 02/18/17 08:13 Dose: 200 mls/hr Insulin Glargine (Lantus(*)) 18 units SUBCUT Q24H [facility] Last Admin: 02/17/17 20:44 Dose: 18 units Insulin Human Lispro (Humalog*) 0 - 10 units SUBCUT ACHS [facility] PRN Reason: Protocol Last Admin: 02/18/17 12:53 Dose: 1 units Lactobacillus Rhamnosus (Culturelle*) 1 cap PO DAILY [facility] Last Admin: 02/18/17 08:11 Dose: 1 cap Magnesium Hydroxide (Milk Of Magnesia Liq*) 30 ml PO Q6H PRN PRN Reason: CONSTIPATION Metoprolol Tartrate (Lopressor Tab*) 25 mg PO Q8HR@0000,0800,1600 [facility] Last Admin: 02/18/17 08:11 Dose: 25 mg Multi-Ingredient Ointment (Hydrocerin*) 1 applic TOPICAL BID [facility] Last Admin: 02/18/17 08:11 Dose: 1 applic Multivitamins/Minerals (Theragran/Minerals Tab*) 1 tab PO DAILY [facility] Last Admin: 02/18/17 08:11 Dose: 1 tab Nystatin (Nystatin Top Powder*) 1 applic TOPICAL TID [facility] Last Admin: 02/18/17 12:53 Dose: 1 applic Omeprazole (Prilosec Cap*) 20 mg PO 0600 [facility] Last Admin: 02/18/17 05:23 Dose: 20 mg Senna (Senokot Tab*) 2 tab PO BEDTIME PRN PRN Reason: CONSTIPATION Warfarin Sodium (Coumadin Tab(*)) 9 mg PO DAILY@1700 [facility] Last Admin: 02/17/17 16:52 Dose: 9 mg Laboratory Results - last 24 hr 02/17/17 02/17/17 02/18/17 16:37 20:17 05:20 WBC 5.2 RBC 3.94 L Hgb 10.3 L Hct 32 L MCV 80 MCH 26 L MCHC 33 RDW 20 H Plt Count 248 MPV 8 Neut % (Auto) 49.8 Lymph % (Auto) 33.6 Sanders % (Auto) 8.3 Eos % (Auto) 8.0 H Baso % (Auto) 0.3 Absolute Neuts (auto) 2.6 Absolute Lymphs (auto) 1.7 Absolute Monos (auto) 0.4 Absolute Eos (auto) 0.4 Absolute Basos (auto) 0 Absolute Nucleated RBC 0 Nucleated RBC % 0.1 INR (Anticoag Therapy) Sodium Potassium Chloride Carbon Dioxide Anion Gap BUN Creatinine Est GFR ( Amer) Est GFR (Non-Af Amer) BUN/Creatinine Ratio Glucose POC Glucose (mg/dL) 104 H 148 H Calcium Total Bilirubin AST ALT Alkaline Phosphatase Total Protein Albumin Globulin Albumin/Globulin Ratio 02/18/17 02/18/17 02/18/17 05:20 05:20 11:46 WBC RBC Hgb Hct MCV MCH MCHC RDW Plt Count MPV Neut % (Auto) Lymph % (Auto) Sanders % (Auto) Eos % (Auto) Baso % (Auto) Absolute Neuts (auto) Absolute Lymphs (auto) Absolute Monos (auto) Absolute Eos (auto) Absolute Basos (auto) Absolute Nucleated RBC Nucleated RBC % INR (Anticoag Therapy) 2.11 H Sodium 137 Potassium 4.3 Chloride 109 Carbon Dioxide 23 Anion Gap 5 BUN 20 Creatinine 1.10 H Est GFR ( Amer) 67.3 Est GFR (Non-Af Amer) 52.4 BUN/Creatinine Ratio 18.2 Glucose 100 POC Glucose (mg/dL) 137 H Calcium 8.7 Total Bilirubin 0.30 AST 15 ALT 18 Alkaline Phosphatase 80 Total Protein 7.0 Albumin 3.0 L Globulin 4.0 Albumin/Globulin Ratio 0.8 L Vital Signs Temp Pulse Resp BP Pulse Ox 98.2 F 64 16 153/75 98 02/18/17 05:37 02/18/17 05:37 02/18/17 05:37 02/18/17 05:37 02/18/17 11:48 EXAM: LUNGS: Clear bilat HEART: reg rhythm ABDOMEN: Soft +BS EXTREMITIES: Right foot wound ok ASSESSMENT/PLAN: 1. 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 Taking Prozac. Consider ritalin 2. Atrial fibrillation: Amiodarone. Coumadin. INR 2.11. 3. Diabetes Mellitus: Lantus 18 units at HS. Lispro SSI 4. Acute Kidney Injury: Cr 1.1. 5. 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 DVT Prophylaxis: Coumadin 9 mg 7. Advanced directives: is HCP 8. AVR with aortic root replacement: PT/OT. Sternal precautions d/c'd 9. Yeast: Nystatin
[2017-02-18] MEDS: Warfarin TAB(*) 3 MG PO SCH (16:46)
[2017-02-18] MEDS: Insulin GLARGINE(*) 1 UNITS UNIT SUBCUT SCH (20:58)
[2017-02-19] MEDS: Omeprazole CAP* 20 MG PO SCH (06:02)
[2017-02-19] MEDS: Insulin LISPRO* 1 UNITS UNIT SUBCUT SCH ×4 (07:52→21:05)
[2017-02-19] MEDS: Amiodarone TAB* 200 MG PO SCH (08:09)
[2017-02-19] MEDS: Multivitamins/Minerals TAB PO SCH (08:09)
[2017-02-19] MEDS: Metoprolol Tartrate TAB* 25 MG PO SCH ×3 (08:09→23:47)
[2017-02-19] MEDS: Aspirin EC Low Dose* 81 MG TAB.EC PO SCH (08:09)
[2017-02-19] MEDS: FLUoxetine CAP* 20 MG PO SCH (08:09)
[2017-02-19] MEDS: Lactobacillus Acidophilu (GG)* 1 CAP CAP PO SCH (08:54)
[2017-02-19] MEDS: cefTRIAXone(*) 2 GM in NS 0.9% 100 ML* 100 ML IVPB SCH (08:58)
[2017-02-19] MEDS: Nystatin TOP POWDER* 15 GM BTL TOPICAL SCH ×3 (10:59→21:00)
[2017-02-19] MEDS: Moisturizing CREAM* 120 GM JAR TOPICAL SCH ×2 (10:59→21:01)
[2017-02-19] MEDS: Acetaminophen TAB* 325 MG PO PRN (12:31)
[2017-02-19] MEDS: Warfarin TAB(*) 3 MG PO SCH (16:48)
--- NOTE | 2017-02-19 19:18 | PN ---
Progress Note - Progress Note Date of Service: 02/19/17 Note: Karma visited. Therapy notes read and reviewed. She walked a little better today. Current Medications Acetaminophen (Tylenol Tab*) 650 mg PO Q6H PRN PRN Reason: FEVER/PAIN Last Admin: 02/04/17 06:13 Dose: 650 mg Amiodarone HCl (Cordarone Tab*) 200 mg PO DAILY [facility] Last Admin: 02/19/17 08:09 Dose: 200 mg Aspirin (Aspirin Ec Low Dose*) 81 mg PO DAILY [facility] Last Admin: 02/19/17 08:09 Dose: 81 mg Dextrose (D50w Syringe 50 Ml*) 12.5 gm IV PUSH .FOR FS < 60 - SS PRN PRN Reason: FS < 60 Docusate Sodium (Colace Cap*) 100 mg PO BID PRN PRN Reason: CONSTIPATION Fluoxetine HCl (Prozac Cap*) 20 mg PO DAILY [facility] Last Admin: 02/19/17 08:09 Dose: 20 mg Heparin Sodium (Porcine) (Heparin Flush Picc/Ml/Cvc(*)) 1 ml FLUSH 0900,2100 [facility] PRN Reason: Protocol Last Admin: 02/19/17 10:00 Dose: 1 ml Ceftriaxone Sodium 2 gm/ (Sodium Chloride) 100 mls @ 200 mls/hr IVPB Q24H [facility] Last Admin: 02/19/17 08:58 Dose: 200 mls/hr Insulin Glargine (Lantus(*)) 18 units SUBCUT Q24H [facility] Last Admin: 02/18/17 20:58 Dose: 18 units Insulin Human Lispro (Humalog*) 0 - 10 units SUBCUT ACHS [facility] PRN Reason: Protocol Last Admin: 02/19/17 16:54 Dose: Not Given Lactobacillus Rhamnosus (Culturelle*) 1 cap PO DAILY [facility] Last Admin: 02/19/17 08:54 Dose: 1 cap Magnesium Hydroxide (Milk Of Magnesia Liq*) 30 ml PO Q6H PRN PRN Reason: CONSTIPATION Metoprolol Tartrate (Lopressor Tab*) 25 mg PO Q8HR@0000,0800,1600 [facility] Last Admin: 02/19/17 16:48 Dose: 25 mg Multi-Ingredient Ointment (Hydrocerin*) 1 applic TOPICAL BID [facility] Last Admin: 02/19/17 10:59 Dose: 1 applic Multivitamins/Minerals (Theragran/Minerals Tab*) 1 tab PO DAILY [facility] Last Admin: 02/19/17 08:09 Dose: 1 tab Nystatin (Nystatin Top Powder*) 1 applic TOPICAL TID [facility] Last Admin: 02/19/17 14:28 Dose: 1 applic Omeprazole (Prilosec Cap*) 20 mg PO 0600 [facility] Last Admin: 02/19/17 06:02 Dose: 20 mg Senna (Senokot Tab*) 2 tab PO BEDTIME PRN PRN Reason: CONSTIPATION Warfarin Sodium (Coumadin Tab(*)) 9 mg PO DAILY@1700 [facility] Last Admin: 02/19/17 16:48 Dose: 9 mg Laboratory Results - last 24 hr 02/18/17 02/19/17 02/19/17 20:04 07:35 12:00 POC Glucose (mg/dL) 159 H 103 H 133 H 02/19/17 16:50 POC Glucose (mg/dL) 118 H Vital Signs Temp Pulse Resp BP Pulse Ox 98.2 F 58 18 122/63 98 02/19/17 16:15 02/19/17 16:15 02/19/17 16:15 02/19/17 16:15 02/19/17 16:15 EXAM: LUNGS: Clear bilat HEART: reg rhythm ABDOMEN: Soft +BS EXTREMITIES: Right foot wound ok ASSESSMENT/PLAN: 1. 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 Taking Prozac. Consider ritalin 2. Atrial fibrillation: Amiodarone. Coumadin. INR 2.11. 3. Diabetes Mellitus: Lantus 18 units at HS. Lispro SSI 4. Acute Kidney Injury: Stable 5. 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 DVT Prophylaxis: Coumadin 9 mg 7. Advanced directives: is HCP 8. AVR with aortic root replacement: PT/OT. Sternal precautions d/c'd 9. Yeast: Nystatin
[2017-02-19] MEDS: Insulin GLARGINE(*) 1 UNITS UNIT SUBCUT SCH (21:04)
[2017-02-20] MEDS: Omeprazole CAP* 20 MG PO SCH (06:25)
[2017-02-20] MEDS: Insulin LISPRO* 1 UNITS UNIT SUBCUT SCH ×4 (07:46→21:05)
[2017-02-20] MEDS: cefTRIAXone(*) 2 GM in NS 0.9% 100 ML* 100 ML IVPB SCH (07:57)
[2017-02-20] MEDS: FLUoxetine CAP* 20 MG PO SCH (08:51)
[2017-02-20] MEDS: Multivitamins/Minerals TAB PO SCH (08:51)
[2017-02-20] MEDS: Aspirin EC Low Dose* 81 MG TAB.EC PO SCH (08:51)
[2017-02-20] MEDS: Lactobacillus Acidophilu (GG)* 1 CAP CAP PO SCH (08:51)
[2017-02-20] MEDS: Metoprolol Tartrate TAB* 25 MG PO SCH ×2 (08:51→17:27)
[2017-02-20] MEDS: Amiodarone TAB* 200 MG PO SCH (08:51)
[2017-02-20] MEDS: Nystatin TOP POWDER* 15 GM BTL TOPICAL SCH ×3 (10:17→21:16)
[2017-02-20] MEDS: Moisturizing CREAM* 120 GM JAR TOPICAL SCH ×2 (10:17→21:16)
--- NOTE | 2017-02-20 12:48 | PN ---
Progress Note - Progress Note Date of Service: 02/20/17 Note: Karma visited. Nursing notes reviewed. She is doing ok, still concerned with vision Current Medications Acetaminophen (Tylenol Tab*) 650 mg PO Q6H PRN PRN Reason: FEVER/PAIN Last Admin: 02/04/17 06:13 Dose: 650 mg Amiodarone HCl (Cordarone Tab*) 200 mg PO DAILY [facility] Last Admin: 02/20/17 08:51 Dose: 200 mg Aspirin (Aspirin Ec Low Dose*) 81 mg PO DAILY [facility] Last Admin: 02/20/17 08:51 Dose: 81 mg Dextrose (D50w Syringe 50 Ml*) 12.5 gm IV PUSH .FOR FS < 60 - SS PRN PRN Reason: FS < 60 Docusate Sodium (Colace Cap*) 100 mg PO BID PRN PRN Reason: CONSTIPATION Fluoxetine HCl (Prozac Cap*) 20 mg PO DAILY [facility] Last Admin: 02/20/17 08:51 Dose: 20 mg Heparin Sodium (Porcine) (Heparin Flush Picc/Ml/Cvc(*)) 1 ml FLUSH 0900,2100 [facility] PRN Reason: Protocol Last Admin: 02/20/17 08:45 Dose: 1 ml Ceftriaxone Sodium 2 gm/ (Sodium Chloride) 100 mls @ 200 mls/hr IVPB Q24H [facility] Last Admin: 02/20/17 07:57 Dose: 200 mls/hr Insulin Glargine (Lantus(*)) 18 units SUBCUT Q24H [facility] Last Admin: 02/19/17 21:04 Dose: 18 units Insulin Human Lispro (Humalog*) 0 - 10 units SUBCUT ACHS [facility] PRN Reason: Protocol Last Admin: 02/20/17 12:20 Dose: 2 units Lactobacillus Rhamnosus (Culturelle*) 1 cap PO DAILY [facility] Last Admin: 02/20/17 08:51 Dose: 1 cap Magnesium Hydroxide (Milk Of Magnesia Liq*) 30 ml PO Q6H PRN PRN Reason: CONSTIPATION Metoprolol Tartrate (Lopressor Tab*) 25 mg PO Q8HR@0000,0800,1600 [facility] Last Admin: 02/20/17 08:51 Dose: 25 mg Multi-Ingredient Ointment (Hydrocerin*) 1 applic TOPICAL BID [facility] Last Admin: 02/20/17 10:17 Dose: 1 applic Multivitamins/Minerals (Theragran/Minerals Tab*) 1 tab PO DAILY [facility] Last Admin: 02/20/17 08:51 Dose: 1 tab Nystatin (Nystatin Top Powder*) 1 applic TOPICAL TID [facility] Last Admin: 02/20/17 10:17 Dose: 1 applic Omeprazole (Prilosec Cap*) 20 mg PO 0600 [facility] Last Admin: 02/20/17 06:25 Dose: 20 mg Senna (Senokot Tab*) 2 tab PO BEDTIME PRN PRN Reason: CONSTIPATION Warfarin Sodium (Coumadin Tab(*)) 9 mg PO DAILY@1700 [facility] Last Admin: 02/19/17 16:48 Dose: 9 mg Glucose Results Blood Glucose Monitoring POC Start: 02/03/17 17: 48 Freq: ACHUlises Status: Active Protocol: Document 02/19/17 16:30 [id number] (Rec: 02/19/17 17:33 [id number] PM-C07) Blood Glucose Monitoring POC Glucose Obtained Yes Glucose Result Being Addressed/Treated ( 118 mg/dL) Blood Glucose Method POC Glucose (bedside) Additional Actions Taken Other Document 02/19/17 20:10 [id number] (Rec: 02/19/17 20:40 [id number] PM-C03) Blood Glucose Monitoring POC Glucose Obtained Yes Glucose Result Being Addressed/Treated ( 153 mg/dL) Blood Glucose Method POC Glucose (bedside) Document 02/20/17 07:30 [id number] (Rec: 02/20/17 10:19 [id number] PM-C07) Blood Glucose Monitoring POC Glucose Obtained Yes Glucose Result Being Addressed/Treated ( 112 mg/dL) Blood Glucose Method POC Glucose (bedside) Additional Actions Taken Other Document 02/20/17 11:30 [id number] (Rec: 02/20/17 11:51 [id number] PM-C07) Blood Glucose Monitoring POC Glucose Obtained Yes Glucose Result Being Addressed/Treated ( 161 mg/dL) Blood Glucose Method POC Glucose (bedside) Additional Actions Taken Other Vital Signs Temp Pulse Resp BP Pulse Ox 98.1 F 65 18 133/52 98 02/20/17 06:26 02/20/17 06:26 02/20/17 06:26 02/20/17 06:26 02/20/17 08:00 EXAM: LUNGS: Clear bilat HEART: reg rhythm ABDOMEN: Soft +BS EXTREMITIES: Right foot wound ok ASSESSMENT/PLAN: 1. 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 Taking Prozac. Consider ritalin 2. Atrial fibrillation: Amiodarone. Coumadin. INR 2.11. 3. Diabetes Mellitus: Lantus 18 units at HS. Lispro SSI 4. Right foot partial amputation: ortho has looked at wound. Continue WBAT, DSD 5. 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 DVT Prophylaxis: Coumadin 9 mg 7. Advanced directives: is HCP 8. AVR with aortic root replacement: PT/OT. Sternal precautions d/c'd 9. Yeast: Nystatin
[2017-02-20] MEDS: Warfarin TAB(*) 3 MG PO SCH (17:26)
[2017-02-20] MEDS: Insulin GLARGINE(*) 1 UNITS UNIT SUBCUT SCH (21:04)
[2017-02-21] MEDS: Metoprolol Tartrate TAB* 25 MG PO SCH ×4 (00:45→23:46)
[2017-02-21] MEDS: Omeprazole CAP* 20 MG PO SCH (06:31)
[2017-02-21 06:53] LABS: INR 2.37 (0.77-1.02)
[2017-02-21] MEDS: Insulin LISPRO* 1 UNITS UNIT SUBCUT SCH ×4 (07:36→20:20)
[2017-02-21] MEDS: FLUoxetine CAP* 20 MG PO SCH (09:17)
[2017-02-21] MEDS: Amiodarone TAB* 200 MG PO SCH (09:17)
[2017-02-21] MEDS: Aspirin EC Low Dose* 81 MG TAB.EC PO SCH (09:17)
[2017-02-21] MEDS: Multivitamins/Minerals TAB PO SCH (09:17)
[2017-02-21] MEDS: Lactobacillus Acidophilu (GG)* 1 CAP CAP PO SCH (09:17)
[2017-02-21] MEDS: cefTRIAXone(*) 2 GM in NS 0.9% 100 ML* 100 ML IVPB SCH (09:18)
[2017-02-21] MEDS: Moisturizing CREAM* 120 GM JAR TOPICAL SCH ×2 (09:25→21:18)
[2017-02-21] MEDS: Nystatin TOP POWDER* 15 GM BTL TOPICAL SCH ×3 (09:25→21:38)
--- NOTE | 2017-02-21 17:11 | PN ---
Progress Note - Progress Note Date of Service: 02/21/17 Note: Karma visited. Therapy notes read and reviewed. She continues to seem a little flat. Vision impairment is minimzed by the patient Current Medications Acetaminophen (Tylenol Tab*) 650 mg PO Q6H PRN PRN Reason: FEVER/PAIN Last Admin: 02/04/17 06:13 Dose: 650 mg Amiodarone HCl (Cordarone Tab*) 200 mg PO DAILY [facility] Last Admin: 02/21/17 09:17 Dose: 200 mg Aspirin (Aspirin Ec Low Dose*) 81 mg PO DAILY [facility] Last Admin: 02/21/17 09:17 Dose: 81 mg Dextrose (D50w Syringe 50 Ml*) 12.5 gm IV PUSH .FOR FS < 60 - SS PRN PRN Reason: FS < 60 Docusate Sodium (Colace Cap*) 100 mg PO BID PRN PRN Reason: CONSTIPATION Fluoxetine HCl (Prozac Cap*) 20 mg PO DAILY [facility] Last Admin: 02/21/17 09:17 Dose: 20 mg Heparin Sodium (Porcine) (Heparin Flush Picc/Ml/Cvc(*)) 1 ml FLUSH 0900,2100 [facility] PRN Reason: Protocol Last Admin: 02/21/17 10:03 Dose: 1 ml Ceftriaxone Sodium 2 gm/ (Sodium Chloride) 100 mls @ 200 mls/hr IVPB Q24H [facility] Last Admin: 02/21/17 09:18 Dose: 200 mls/hr Insulin Glargine (Lantus(*)) 18 units SUBCUT Q24H [facility] Last Admin: 02/20/17 21:04 Dose: 18 units Insulin Human Lispro (Humalog*) 0 - 10 units SUBCUT ACHS [facility] PRN Reason: Protocol Last Admin: 02/21/17 16:28 Dose: Not Given Lactobacillus Rhamnosus (Culturelle*) 1 cap PO DAILY [facility] Last Admin: 02/21/17 09:17 Dose: 1 cap Magnesium Hydroxide (Milk Of Magnesia Liq*) 30 ml PO Q6H PRN PRN Reason: CONSTIPATION Metoprolol Tartrate (Lopressor Tab*) 25 mg PO Q8HR@0000,0800,1600 [facility] Last Admin: 02/21/17 09:17 Dose: 25 mg Multi-Ingredient Ointment (Hydrocerin*) 1 applic TOPICAL BID [facility] Last Admin: 02/21/17 09:25 Dose: 1 applic Multivitamins/Minerals (Theragran/Minerals Tab*) 1 tab PO DAILY [facility] Last Admin: 02/21/17 09:17 Dose: 1 tab Nystatin (Nystatin Top Powder*) 1 applic TOPICAL TID [facility] Last Admin: 02/21/17 14:11 Dose: 1 applic Omeprazole (Prilosec Cap*) 20 mg PO 0600 [facility] Last Admin: 02/21/17 06:31 Dose: 20 mg Senna (Senokot Tab*) 2 tab PO BEDTIME PRN PRN Reason: CONSTIPATION Warfarin Sodium (Coumadin Tab(*)) 9 mg PO DAILY@1700 [facility] Last Admin: 02/20/17 17:26 Dose: 9 mg Laboratory Results - last 24 hr 02/20/17 02/21/17 02/21/17 20:38 06:35 07:25 INR (Anticoag Therapy) 2.37 H POC Glucose (mg/dL) 141 H 123 H 02/21/17 02/21/17 12:01 16:27 INR (Anticoag Therapy) POC Glucose (mg/dL) 122 H 108 H Vital Signs Temp Pulse Resp BP Pulse Ox 97.9 F 62 20 131/79 96 02/21/17 15:28 02/21/17 15:28 02/21/17 15:28 02/21/17 15:28 02/21/17 16:31 EXAM: LUNGS: Clear bilat HEART: reg rhythm ABDOMEN: Soft +BS EXTREMITIES: Right foot wound ok ASSESSMENT/PLAN: 1. 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 Taking Prozac. Consider ritalin 2. Atrial fibrillation: Amiodarone. Coumadin. INR 2.11. 3. Diabetes Mellitus: Lantus 18 units at HS. Lispro SSI 4. Right foot partial amputation: ortho has looked at wound. Continue WBAT, DSD 5. 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 DVT Prophylaxis: Coumadin 9 mg 7. Advanced directives: is HCP 8. AVR with aortic root replacement: PT/OT. Sternal precautions d/c'd 9. Yeast: Nystatin
[2017-02-21] MEDS: Warfarin TAB(*) 3 MG PO SCH (17:32)
[2017-02-21] MEDS: Insulin GLARGINE(*) 1 UNITS UNIT SUBCUT SCH (21:16)
[2017-02-22] MEDS: Omeprazole CAP* 20 MG PO SCH (05:15)
[2017-02-22] MEDS: Insulin LISPRO* 1 UNITS UNIT SUBCUT SCH ×4 (07:59→21:35)
[2017-02-22] MEDS: Amiodarone TAB* 200 MG PO SCH (08:11)
[2017-02-22] MEDS: Metoprolol Tartrate TAB* 25 MG PO SCH ×2 (08:11→15:46)
[2017-02-22] MEDS: Lactobacillus Acidophilu (GG)* 1 CAP CAP PO SCH (08:11)
[2017-02-22] MEDS: Aspirin EC Low Dose* 81 MG TAB.EC PO SCH (08:11)
[2017-02-22] MEDS: Multivitamins/Minerals TAB PO SCH (08:11)
[2017-02-22] MEDS: FLUoxetine CAP* 20 MG PO SCH (08:12)
[2017-02-22] MEDS: Moisturizing CREAM* 120 GM JAR TOPICAL SCH ×2 (08:13→21:40)
[2017-02-22] MEDS: cefTRIAXone(*) 2 GM in NS 0.9% 100 ML* 100 ML IVPB SCH (08:13)
[2017-02-22] MEDS: Nystatin TOP POWDER* 15 GM BTL TOPICAL SCH ×3 (08:13→21:40)
--- NOTE | 2017-02-22 12:47 | PMRUTEAM ---
PMRU: Goals Current Status: Nursing: Current Status Skin Deviations [Left Anterior Wound Foot] Skin Deviations [Lateral Rash Abdomen] Skin Deviations [Right Foot] Incision Skin Deviations [Midline Chest Incision ] Skin Deviations [Left Upper Incision Chest] Skin Deviations [Medial Other Buttocks] Skin Deviations [Right Upper Bruise Thigh] Skin Deviations [Bilateral Other Groin] Skin Deviation Description [ Abrasion 0.3cmx0.5cm noted, area washed, xeroform , Left Anterior Foot] guaze, and tegaderm applied Skin Deviation Description [ nystatin powder applied Lateral Abdomen] Skin Deviation Description [ purulent drainage noted this AM Right Foot] Skin Deviation Description [ healing well Midline Chest] Skin Deviation Description [ healing well Left Upper Chest] Skin Deviation Description [ redness noted, cream applied Medial Buttocks] Skin Deviation Description [ redness - skin prep applied Right Upper Thigh] Skin Deviation Description [ area appears to be improving. some remains Bilateral Groin] excoriated. nystatin powder applied. Bladder Current Status No incontinence, up walking to BR, will hold urine for over 12 hours Bowel Current Status incontinent bm 02/21/17 Nutrition Current Status appetite increased Medication Current Status needs reinforcement Physical Therapy: Current Status Bed Mobility Assistance Supervision Transfer Moblility Assistance Supervision Transfer/Bed Mobility Rolling Walker Recommended Devices Transfer Mobility Comment Pt. is able to perform a SPT using a 2 w/w S x 1. Ambulation Assistance Supervision Ambulation Assistive Devices Rolling Walker Number of Feet Patient 150' Ambulated Ambulation Comment An improved reciprocal type gait pattern. Stairs Assistance Supervision,Contact Guard Assist Stairs Recommended Devices Two Rails Number of Stairs 5 Curb Not Tested Occupational Therapy: Current Status Upper Body Dressing Supervision Lower Body Dressing Min Assist Bathing Min Assist,Mod Assist Toileting Min Assist Toilet Transfer Contact Guard Assist Shower Transfer Contact Guard Assist Eating Independent Rec Therapy: Current Status Summary of Assessment and RT assessment complete and pt. is aware of RT Clinical Impression services. Pt. is with visitors much of the time in the afternoons but listens to music and is open to continued visits. Treatment Goals Pt. will engage in leisure activities while on the unit. Treatment Plan Provide RT services and encourage involvement. Social Work: Current Status Discharge Plan return home with home care svs and family support Potential for Family Training pt's family is involved and supportive Anticipated Discharge Home Destination Discharge With home care svs and family support Nutrition: Current Status Monitoring Visited pt for follow-up. Pt reports appetite is improving; meal completions 02/17-45-75% meals, 02/18 75% breakfast. Currently on 18 units Lantus and Humalog correction. Blood sugars have been well controlled and 02/16-02/17 range from 104-148 and fasting blood sugar was 100 this AM. Last bowel movement 02/17. Attempted to start to provide education on diabetes today however pt was not very receptive. She is feeling very frusterated that she is having memory problems. She had a difficult time providing a 24 hr diet recall prior to admission but was able to provide some information. She denies ever having diabetes education in the past and reports she had not been on any diabetes medication prior to admission. She reports she knows what she is supposed to do however was not doing it. 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 Discussed with staff on floor unit (RN, social science instructor) regarding education and they feel pt's needs to be available for this. Staff thinks he typically works 8 AM-4 PM. Encouraged them to page RDN when comes in so he can be present since pt has memory and vision issues. 24 hr diet recall per pt: Ate breakfast sometimes but if working would skip; may have a muffin or donut or breakfast sandwich Lunch-herminia burger or soup Dinner-spaghetti, bread sometimes or chicken, potatoes, vegetables (peas, corn or green beans) May grab quick snacks while working such as chips Beverages-Pepsi or unsweetened iced tea Speech: Current Status Assessment Patient has met her skilled speech-language pathology goals and will be discharged from skilled speech-language pathology services at this time. Discussed with PMRU team, Tova PT, Syl OT, and Wandy OT. Goals: Physical Therapy: Initial Goals Bed Mobility Assistance Independent Transfer Mobility Assistance Independent Transfer/Bed Mobility Rolling Walker Recommended Devices Ambulation Independent Ambulation Recommended Devices Rolling Walker Ambulation Distance 150 Stairs Assistance Independent Stair Recommended Devices Two Rails Number of Stairs 5 Physical Therapy: Updated Goals Bed Mobility Assistance Independent Transfer Mobility Assistance Independent Transfer/Bed Mobility Rolling Walker,EZ Stand Recommended Devices Ambulation Assistance Independent Ambulation Assistive Devices Rolling Walker Ambulation Distance (ft) 150 Stairs Assistance Independent Stairs Recommended Devices Two Rails Number of Stairs 5 Home Exercise Program Independent Assistance Occupational Therapy: Initial Goals Goals to be Completed in (Days 21-28 days ) Upper Body Bathing Routine Modified Independent with Lower Body Bathing Routine Minimal Contact Assist Upper Body Dressing Routine Modified Independent with Lower Body Dressing Routine Minimal Contact Assist Toilet Hygeine and Clothing Minimal Contact Assist Management Routine Toilet Transfer Routine Modified Independent with Tub Transfer Routine Modified Independent with Functional Transfers for ADL Modified Independent with Grooming Routine Modified Independent with Feeding Routine Independent Nursing: Goals Bladder Goal independent Bowel Goal independent Nutrition Goal 90% of all meals Medication Goal supervision, to assist Nutrition: Goals Intervention Goals 1. maintain intake >60% 2. adequate po intake to maintain hydration and lean body mass without add'l wt gain 3. skin will show evidence of healing and without further breakdown 4. adequate glycemic control in PMRU setting without s/sx hypo- or hyperglycemia 5. maintain regulated bowel pattern without constipation/diarrhea 6. pt and family will have an understanding of eating with diabetes prior to discharge Speech: Goals Speech Goal 1 Receptive Language Speech Current Status Goal 1 Met 02/08/17 Goal 1 Comments LTG: The patient will participate in functional daily activities without deficit with language comprehension skills. Status: Goal achieved, 02/08/17. Speech Goal 2 Memory Speech Goal 2 Current Status Met 02/11/17 Speech Goal 2 Comments LTG: The patient will participate in functional daily activities, independently utilizing compensatory strategies in order to recall important information successfully. Status: Goal achieved, 02/11/17. Patient will require assistance with recall of lengthier pieces of information due to decreased ability to write and read at this time secondary to poor vision. ST)The patient will learn and practice compensatory strategies for recall of information with greater than 90% accuracy, minimal cues. Status: Objective achieved, 02/09/17. 2)The patient will successfully complete working memory / recall tasks with 50% accuracy, minimal cues. Status: Temporal orientation, current personal/ surroundings questions: 100% accuracy, no cues; extra time provided. Working memory (auditory-based): *mental manipulation, word progression field of 3: 100% accuracy, no cues. *scrambled sentences field of 5 words: 100% accuracy, no cues. *paragraph retention (2-3 sentences at a time; independent use of verbal repetition strategy to retain information): 100% accuracy, no cues. *Lengthier information deferred due to patient's inability to write and/or read as strategies due to her poor vision at this time. Vision: Therapist asked patient to look at large, colorful picture cards: Patient noted to have increased vision to LEFT; tended to hold picture closer to her face in order to read smaller print. Patient scanned therapist's hand when starting on patient's LEFT side; patient reported that the hand disappeared once passing mid-line, toward right. Discussed with ARIAN Saba. Patient has met objective this date, 02/11/17. *Of note: This therapist changed patient's Problem Solving FIM goal from 7 to 5, as the patient is experiencing difficulties with her vision. Patient is able to verbally state appropriate solutions to complex problems; however, due to her vision she will likely require assistance with finances, medication management, etcetera for optimal safety and accuracy. Social Work: Goals Discharge Plan return home with home care svs and family support Potential for Family Training pt's family is involved and supportive Anticipated Discharge Home Destination Discharge With home care svs and family support Care Plan: Care Plan ADL's - Improve/Maintain Start: 02/04/17 16:05 Freq: DAILY Status: Active Target: Protocol: Activity Type Activity Date Activity User E-Sign Co-Sign Detail Recorded Client Recorded Date Recorded By Document 02/19/17 14:22 [id number] 02/19/17 14:22 [id number] 02/19/17 14:22 PMRU Outcome: ADL's/ADL Transfers Orders/Interventions Occupational Therapy Evaluation & Treatment Device Yes Patient to receive OT 5x/wk for 60-120 Therex min/day Self Care Management UE/LE ADL's with Assist Yes ADL Transfers with Assist Yes Toileting: Transfers,Clothing Management Yes ,Hygeine w/Assist Light Kitchen/Laundry w/Assist Yes Progression Toward Outcome/Goals Progressing Outcome/Goals Met Limited by visual deficits . Endurance improving. Needs encouragment for ADLs. [ End ] Cardiovascular- Improve/Maintain Start: 02/04/17 10:46 Freq: DAILY Status: Complete Target: Protocol: Activity Type Activity Date Activity User E-Sign Co-Sign Detail Recorded Client Recorded Date Recorded By Document 02/17/17 20:00 [id number] 02/17/17 22:03 [id number] 02/17/17 20:00 PMRU Outcome: Cardiovascular Vital Signs q Shift for 48hrs Then BID Yes Daily Weight Ordered No Current Cardiovascular Outcome/Goal Maintain/ Achieve Baseline HR, BP , Perfusion Free of Abnormal Cardiac Symptoms Outcomes/Goals Met Maintain/ Achieve Baseline HR, BP , Perfusion Maintain/ Improve Perfusion Communication-Improve/Maintain Start: 02/04/17 14:53 Freq: DAILY Status: Active Target: Protocol: Activity Type Activity Date Activity User E-Sign Co-Sign Detail Recorded Client Recorded Date Recorded By Document 02/22/17 10:13 [id number] 02/22/17 10:15 [id number] 02/22/17 10:13 PMRU Outcome: Communication/Cognitive Status Outcome/Goals Makes Needs Known Effectively Progression Toward Outcomes/Goals Progressing Outcome/Goals Met Use Comm Tools/ Devices Other Coping/Psych-Improve/Maintain Start: 02/04/17 10:46 Freq: DAILY Status: Active Target: Protocol: Activity Type Activity Date Activity User E-Sign Co-Sign Detail Recorded Client Recorded Date Recorded By Document 02/22/17 10:13 [id number] 02/22/17 10:15 [id number] 02/22/17 10:13 PMRU Outcome: Coping/Psychosocial Coping Outcome/Goals Verbalization of Acceptance of Rehab Admit Verbalization of Sense of Control Over Health Status Utilization of Appropriate Problem Solving Techniques Willingness to Participate in Treatment Plan and Basic Needs Utilization of Available Support Systems Psychosocial Outcome/Goals Maintain/ Improve Emotional Health Demonstrates Knowledge of Healthy Coping Mechanisms Available Cooperate/ Participate in Plan Progression Toward Outcome/Goals - Progressing Coping Progression Toward Outcome/Goals - Progressing Psychosocial DVT Prophylaxis- Improve/Maintain Start: 02/04/17 10:46 Freq: DAILY Status: Active Target: Protocol: Activity Type Activity Date Activity User E-Sign Co-Sign Detail Recorded Client Recorded Date Recorded By Document 02/22/17 10:13 [id number] 02/22/17 10:15 [id number] 02/22/17 10:13 PMRU Outcome: DVT Prophylaxis Outcome/Goals Remains Free of DVT Complies with DVT Prophylaxis /Treatment Demonstrates Knowledge of DVT Prevention/ Treatment Other Outcome/Goals rina wraps Progression Toward Outcome/Goals Progressing Discharge Planning - Improve/Maintain Start: 02/04/17 10:46 Freq: DAILY Status: Active Target: Protocol: Activity Type Activity Date Activity User E-Sign Co-Sign Detail Recorded Client Recorded Date Recorded By Document 02/22/17 10:13 [id number] 02/22/17 10:15 [id number] 02/22/17 10:13 PMRU Outcome: Discharge Planning Identify Patient Needs yes Update Patient Family No Outcome/Goals Demonstrates Understanding of Discharge Plan Progression Toward Outcome/Goals Progressing Education-Improve/Maintain Start: 02/04/17 10:46 Freq: DAILY Status: Active Target: Protocol: Activity Type Activity Date Activity User E-Sign Co-Sign Detail Recorded Client Recorded Date Recorded By Document 02/22/17 10:13 [id number] 02/22/17 10:15 [id number] 02/22/17 10:13 PMRU Outcome: Education Outcome/Goals Encourage Questions Progression Toward Outcome/Goals Progressing /GI-Improve/Maintain Start: 02/04/17 10:46 Freq: DAILY Status: Active Target: Protocol: Activity Type Activity Date Activity User E-Sign Co-Sign Detail Recorded Client Recorded Date Recorded By Document 02/22/17 10:13 [id number] [id number] 02/22/17 10:15 [id number] 02/22/17 10:13 PMRU Outcome: Genitourinary/ Gastrointestinal Genitourinary- Outcome/Goals Maintain/ Achieve Urinary Continence Remain Free of Hospital- Acquired UTI Gastrointestinal-Outcome/Goals Maintain/ Achieve Bowel Regularity in Accordance with Pt's Baseline Prevent Constipation Progression Toward Outcome/Goals - Progressing Progression Toward Outcome/Goals - GI Progressing Outcome/Goals Met Comment ambulates to BR Medication Administration Start: 02/04/17 10:46 Freq: DAILY Status: Active Target: Protocol: Activity Type Activity Date Activity User E-Sign Co-Sign Detail Recorded Client Recorded Date Recorded By Document 02/22/17 10:13 [id number] 02/22/17 10:15 [id number] 02/22/17 10:13 PMRU Outcome: Medication Administration Assess Patient Knowledge/Teach Med Yes Education for all Meds Outcome/Goals Family/ Caregiver Administer Medications at Home Demonstrates Understanding Progression Towards Outcome/Goals Progressing Is Patient Going Home on Lovenox? No Metabolic Status- Improve/Maintain Start: 02/04/17 10:46 Freq: DAILY Status: Active Target: Protocol: Activity Type Activity Date Activity User E-Sign Co-Sign Detail Recorded Client Recorded Date Recorded By Document 02/22/17 10:13 [id number] 02/22/17 10:15 [id number] 02/22/17 10:13 PMRU Outcome: Metabolic Status Have Fingersticks Been Ordered Yes Fingerstick Order Frequency AC & HS Outcome/Goals Maintain/ Improve Metabolic Status Demonstrate Knowledge of Prevention/ Treatment of Metabolic Imbalances Progression Toward Outcome/Goals Progressing Mobility- Improve/Maintain Start: 02/05/17 18:05 Freq: DAILY Status: Active Target: Protocol: Activity Type Activity Date Activity User E-Sign Co-Sign Detail Recorded Client Recorded Date Recorded By Document 02/22/17 12:12 [id number] 02/22/17 12:12 [id number] 02/22/17 12:12 PMRU Outcome: Mobility Physical Therapy Evaluation and Yes Treatment Activity OOB with Assistance Yes Device Yes Assistance Yes Patient to be seen 5x/wk for 60-120 min/ Therex day for: Mobility Training Gait Training Balance Other Therapy Comment patient is weightbearing through heel of RLE only. Outcome/Goals Maintain/ Achieve Baseline Mobility Status Improve Mobility Status Demonstrates Proper Use of Assistive Devices Free from Complications of Immobility Progression Toward Outcome/Goals Progressing Bed Mobility Yes: independent Transfers Yes: independent with rolling walker Gait x ft Yes: independent with rollingwalker 150' Up/Down Stairs Yes: independent up/ down 5 stairs with 2 rails. Nutrition/Swallowing- Improve/Maintain Start: 02/04/17 10:46 Freq: DAILY Status: Active Target: Protocol: Activity Type Activity Date Activity User E-Sign Co-Sign Detail Recorded Client Recorded Date Recorded By Document 02/22/17 10:13 [id number] 02/22/17 10:15 [id number] 02/22/17 10:13 PMRU Outcome: Nutrition/Swallowing Outcome/Goals Demonstrates Adequate Hydration/ Prevents Dehydration Maintain/ Improve Nutritional Status Progression Toward Outcome/Goals Progressing Respiratory - Improve/Maintain Start: 02/04/17 10:46 Freq: DAILY Status: Complete Target: Protocol: Activity Type Activity Date Activity User E-Sign Co-Sign Detail Recorded Client Recorded Date Recorded By Document 02/17/17 20:00 [id number] [email or web address] 02/17/17 22:03 [id number] 02/17/17 20:00 PMRU Outcome: Respiratory Does Patient Have a Trach No Outcome/Goals Met Maintain/ Improve O2 Sat per MD Order Maintain/ Improve Baseline Respiratory Status Safety- Improve/Maintain Start: 02/04/17 10:46 Freq: DAILY Status: Active Target: Protocol: Activity Type Activity Date Activity User E-Sign Co-Sign Detail Recorded Client Recorded Date Recorded By Document 02/22/17 10:13 [id number] [id number] 02/22/17 10:15 [id number] 02/22/17 10:13 PMRU Outcome: Safety Outcome/Goals Remain Free of Injury or Harm Prevent Falls/ Injury Progression Toward Outcome/Goals Progressing Outcome/Goals Met Comment PA in place Skin- Improve/Maintain Start: 02/04/17 10:46 Freq: DAILY Status: Active Target: Protocol: Activity Type Activity Date Activity User E-Sign Co-Sign Detail Recorded Client Recorded Date Recorded By Document 02/22/17 10:13 [id number] [email or web address] 02/22/17 10:15 [id number] 02/22/17 10:13 PMRU Outcome: Skin Skin Risk Level Medium Skin Orders Dressing Change Turn/Position q2hr While in Bed Outcome/Goals Maintain/ Improve Skin Intergrity Maintain/ Improve Wound Status Surgical Incisions Healing Progression Toward Outcome/Goals Progressing Medicine Note: Length of Stay: 10 days Anticipated Discharge Destination: Home Tentative Discharge Date: 03/04/17 Discharged to: Home
[2017-02-22] MEDS: Warfarin TAB(*) 3 MG PO SCH (17:22)
--- NOTE | 2017-02-22 17:53 | PN ---
Progress Note - Progress Note Date of Service: 02/22/17 Note: Karma visited. She was discussed in interdisciplinary team rounds. Will need to find a local power plant superintendent. She remains limited by vision, otherwise doing ok. Current Medications Acetaminophen (Tylenol Tab*) 650 mg PO Q6H PRN PRN Reason: FEVER/PAIN Last Admin: 02/04/17 06:13 Dose: 650 mg Amiodarone HCl (Cordarone Tab*) 200 mg PO DAILY [facility] Last Admin: 02/22/17 08:11 Dose: 200 mg Aspirin (Aspirin Ec Low Dose*) 81 mg PO DAILY [facility] Last Admin: 02/22/17 08:11 Dose: 81 mg Dextrose (D50w Syringe 50 Ml*) 12.5 gm IV PUSH .FOR FS < 60 - SS PRN PRN Reason: FS < 60 Docusate Sodium (Colace Cap*) 100 mg PO BID PRN PRN Reason: CONSTIPATION Fluoxetine HCl (Prozac Cap*) 20 mg PO DAILY [facility] Last Admin: 02/22/17 08:12 Dose: 20 mg Heparin Sodium (Porcine) (Heparin Flush Picc/Ml/Cvc(*)) 1 ml FLUSH 0900,2100 [facility] PRN Reason: Protocol Last Admin: 02/22/17 09:00 Dose: 1 ml Ceftriaxone Sodium 2 gm/ (Sodium Chloride) 100 mls @ 200 mls/hr IVPB Q24H [facility] Stop: 02/24/17 23:59 Last Admin: 02/22/17 08:13 Dose: 200 mls/hr Insulin Glargine (Lantus(*)) 18 units SUBCUT Q24H [facility] Last Admin: 02/21/17 21:16 Dose: 18 units Insulin Human Lispro (Humalog*) 0 - 10 units SUBCUT ACHS [facility] PRN Reason: Protocol Last Admin: 02/22/17 17:20 Dose: Not Given Lactobacillus Rhamnosus (Culturelle*) 1 cap PO DAILY [facility] Last Admin: 02/22/17 08:11 Dose: 1 cap Magnesium Hydroxide (Milk Of Magnesia Liq*) 30 ml PO Q6H PRN PRN Reason: CONSTIPATION Metoprolol Tartrate (Lopressor Tab*) 25 mg PO Q8HR@0000,0800,1600 [facility] Last Admin: 02/22/17 15:46 Dose: 25 mg Multi-Ingredient Ointment (Hydrocerin*) 1 applic TOPICAL BID [facility] Last Admin: 02/22/17 08:13 Dose: 1 applic Multivitamins/Minerals (Theragran/Minerals Tab*) 1 tab PO DAILY [facility] Last Admin: 02/22/17 08:11 Dose: 1 tab Nystatin (Nystatin Top Powder*) 1 applic TOPICAL TID [facility] Last Admin: 02/22/17 15:46 Dose: 1 applic Omeprazole (Prilosec Cap*) 20 mg PO 0600 [facility] Last Admin: 02/22/17 05:15 Dose: 20 mg Senna (Senokot Tab*) 2 tab PO BEDTIME PRN PRN Reason: CONSTIPATION Warfarin Sodium (Coumadin Tab(*)) 9 mg PO DAILY@1700 [facility] Last Admin: 02/22/17 17:22 Dose: 9 mg Laboratory Results - last 24 hr 02/21/17 02/22/17 02/22/17 20:19 07:37 12:01 POC Glucose (mg/dL) 127 H 113 H 133 H 02/22/17 16:27 POC Glucose (mg/dL) 119 H Vital Signs Temp Pulse Resp BP Pulse Ox 97.8 F 56 20 116/66 100 02/22/17 15:37 02/22/17 15:37 02/22/17 15:37 02/22/17 15:37 02/22/17 15:50 EXAM: LUNGS: Clear bilat HEART: reg rhythm ABDOMEN: Soft +BS EXTREMITIES: Right foot wound ok ASSESSMENT/PLAN: 1. 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 Taking Prozac. Consider ritalin 2. Atrial fibrillation: Amiodarone. Coumadin. Check INR 02/23 3. Diabetes Mellitus: Lantus 18 units at HS. Lispro SSI 4. Right foot partial amputation: ortho has looked at wound. Continue WBAT, DSD 5. 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 DVT Prophylaxis: Coumadin 9 mg 7. Advanced directives: is HCP 8. AVR with aortic root replacement: Will find a local power plant superintendent for her 9. Yeast: Nystatin
[2017-02-22] MEDS: Insulin GLARGINE(*) 1 UNITS UNIT SUBCUT SCH (21:34)
[2017-02-23] MEDS: Metoprolol Tartrate TAB* 25 MG PO SCH ×4 (00:05→23:37)
[2017-02-23] MEDS: Omeprazole CAP* 20 MG PO SCH (05:52)
[2017-02-23 06:17] LABS: INR 2.42 (0.77-1.02)
[2017-02-23] MEDS: Insulin LISPRO* 1 UNITS UNIT SUBCUT SCH ×4 (07:27→21:55)
[2017-02-23] MEDS: FLUoxetine CAP* 20 MG PO SCH (09:24)
[2017-02-23] MEDS: Amiodarone TAB* 200 MG PO SCH (09:24)
[2017-02-23] MEDS: Aspirin EC Low Dose* 81 MG TAB.EC PO SCH (09:24)
[2017-02-23] MEDS: Lactobacillus Acidophilu (GG)* 1 CAP CAP PO SCH (09:24)
[2017-02-23] MEDS: Multivitamins/Minerals TAB PO SCH (09:24)
[2017-02-23] MEDS: cefTRIAXone(*) 2 GM in NS 0.9% 100 ML* 100 ML IVPB SCH (09:25)
[2017-02-23] MEDS: Moisturizing CREAM* 120 GM JAR TOPICAL SCH ×2 (09:29→21:55)
[2017-02-23] MEDS: Nystatin TOP POWDER* 15 GM BTL TOPICAL SCH ×3 (09:29→21:55)
[2017-02-23] MEDS: Warfarin TAB(*) 3 MG PO SCH (17:31)
--- NOTE | 2017-02-23 17:34 | PN ---
Progress Note - Progress Note Date of Service: 02/23/17 Note: Karma visited. Therapy notes read and reviewed. As we prepare for discharge, trying to get her diabetes medicines straight. She will need a home glucometer. She will need a primary care physician. She will need a local mobile equipment mechanic. She will go home on Lantus. May need an oral med as well. Home on Coumadin. May switch metoprolol to BID Current Medications Acetaminophen (Tylenol Tab*) 650 mg PO Q6H PRN PRN Reason: FEVER/PAIN Last Admin: 02/04/17 06:13 Dose: 650 mg Amiodarone HCl (Cordarone Tab*) 200 mg PO DAILY [facility] Last Admin: 02/23/17 09:24 Dose: 200 mg Aspirin (Aspirin Ec Low Dose*) 81 mg PO DAILY [facility] Last Admin: 02/23/17 09:24 Dose: 81 mg Dextrose (D50w Syringe 50 Ml*) 12.5 gm IV PUSH .FOR FS < 60 - SS PRN PRN Reason: FS < 60 Docusate Sodium (Colace Cap*) 100 mg PO BID PRN PRN Reason: CONSTIPATION Fluoxetine HCl (Prozac Cap*) 20 mg PO DAILY [facility] Last Admin: 02/23/17 09:24 Dose: 20 mg Heparin Sodium (Porcine) (Heparin Flush Picc/Ml/Cvc(*)) 1 ml FLUSH 0900,2100 [facility] PRN Reason: Protocol Last Admin: 02/23/17 10:05 Dose: 1 ml Ceftriaxone Sodium 2 gm/ (Sodium Chloride) 100 mls @ 200 mls/hr IVPB Q24H [facility] Stop: 02/24/17 23:59 Last Admin: 02/23/17 09:25 Dose: 200 mls/hr Insulin Glargine (Lantus(*)) 18 units SUBCUT Q24H [facility] Last Admin: 02/22/17 21:34 Dose: 18 units Insulin Human Lispro (Humalog*) 0 - 10 units SUBCUT ACHS [facility] PRN Reason: Protocol Last Admin: 02/23/17 17:26 Dose: Not Given Lactobacillus Rhamnosus (Culturelle*) 1 cap PO DAILY [facility] Last Admin: 02/23/17 09:24 Dose: 1 cap Magnesium Hydroxide (Milk Of Magnesia Liq*) 30 ml PO Q6H PRN PRN Reason: CONSTIPATION Metoprolol Tartrate (Lopressor Tab*) 25 mg PO Q8HR@0000,0800,1600 [facility] Last Admin: 02/23/17 17:31 Dose: 25 mg Multi-Ingredient Ointment (Hydrocerin*) 1 applic TOPICAL BID [facility] Last Admin: 02/23/17 09:29 Dose: 1 applic Multivitamins/Minerals (Theragran/Minerals Tab*) 1 tab PO DAILY [facility] Last Admin: 02/23/17 09:24 Dose: 1 tab Nystatin (Nystatin Top Powder*) 1 applic TOPICAL TID [facility] Last Admin: 02/23/17 14:12 Dose: 1 applic Omeprazole (Prilosec Cap*) 20 mg PO 0600 [facility] Last Admin: 02/23/17 05:52 Dose: 20 mg Senna (Senokot Tab*) 2 tab PO BEDTIME PRN PRN Reason: CONSTIPATION Warfarin Sodium (Coumadin Tab(*)) 9 mg PO DAILY@1700 [facility] Last Admin: 02/23/17 17:31 Dose: 9 mg Laboratory Results - last 24 hr 02/22/17 02/23/17 02/23/17 20:18 05:50 07:26 INR (Anticoag Therapy) 2.42 H POC Glucose (mg/dL) 206 H 100 02/23/17 02/23/17 12:00 16:34 INR (Anticoag Therapy) POC Glucose (mg/dL) 114 H 130 H Vital Signs Temp Pulse Resp BP Pulse Ox 97.3 F 55 18 119/58 99 02/23/17 15:58 02/23/17 15:58 02/23/17 15:58 02/23/17 15:58 02/23/17 15:58 EXAM: LUNGS: Clear bilat HEART: reg rhythm ABDOMEN: Soft +BS EXTREMITIES: Right foot wound ok. Slight drainage today ASSESSMENT/PLAN: 1. 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 Taking Prozac. Consider ritalin 2. Atrial fibrillation: Amiodarone. Coumadin. Check INR 02/25 3. Diabetes Mellitus: Lantus 18 units at HS. Lispro SSI 4. Right foot partial amputation: ortho has looked at wound. Continue WBAT, DSD. A llittle more drainage today. Will ask ortho to recheck prior to d/c 5. Sepsis from foot wound/Endocarditis: Ceftriaxone 2 gm IV daily through tomorrow 6. DVT Prophylaxis: Coumadin 9 mg 7. Advanced directives: is HCP 8. AVR with aortic root replacement: Will find a local mobile equipment mechanic for her 9. Yeast: Nystatin
[2017-02-23] MEDS: Insulin GLARGINE(*) 1 UNITS UNIT SUBCUT SCH (21:54)
[2017-02-24] MEDS: Omeprazole CAP* 20 MG PO SCH (06:14)
[2017-02-24] MEDS: Insulin LISPRO* 1 UNITS UNIT SUBCUT SCH ×4 (09:19→22:02)
[2017-02-24] MEDS: cefTRIAXone(*) 2 GM in NS 0.9% 100 ML* 100 ML IVPB SCH (09:28)
[2017-02-24] MEDS: Aspirin EC Low Dose* 81 MG TAB.EC PO SCH (09:28)
[2017-02-24] MEDS: Metoprolol Tartrate TAB* 25 MG PO SCH ×2 (09:28→22:01)
[2017-02-24] MEDS: Amiodarone TAB* 200 MG PO SCH (09:28)
[2017-02-24] MEDS: FLUoxetine CAP* 20 MG PO SCH (09:28)
[2017-02-24] MEDS: Lactobacillus Acidophilu (GG)* 1 CAP CAP PO SCH (09:28)
[2017-02-24] MEDS: Multivitamins/Minerals TAB PO SCH (09:29)
[2017-02-24] MEDS: Nystatin TOP POWDER* 15 GM BTL TOPICAL SCH ×3 (09:29→22:02)
[2017-02-24] MEDS: Moisturizing CREAM* 120 GM JAR TOPICAL SCH ×2 (09:29→22:02)
[2017-02-24] MEDS: Warfarin TAB(*) 3 MG PO SCH (16:21)
--- NOTE | 2017-02-24 19:51 | PN ---
Progress Note - Progress Note Date of Service: 02/24/17 Note: Karma visited. Therapy notes read and reviewed. She is moving a little better. Remains flat most of the time. Vision still a problem. Current Medications Acetaminophen (Tylenol Tab*) 650 mg PO Q6H PRN PRN Reason: FEVER/PAIN Last Admin: 02/04/17 06:13 Dose: 650 mg Amiodarone HCl (Cordarone Tab*) 200 mg PO DAILY [facility] Last Admin: 02/24/17 09:28 Dose: 200 mg Aspirin (Aspirin Ec Low Dose*) 81 mg PO DAILY [facility] Last Admin: 02/24/17 09:28 Dose: 81 mg Dextrose (D50w Syringe 50 Ml*) 12.5 gm IV PUSH .FOR FS < 60 - SS PRN PRN Reason: FS < 60 Docusate Sodium (Colace Cap*) 100 mg PO BID PRN PRN Reason: CONSTIPATION Fluoxetine HCl (Prozac Cap*) 20 mg PO DAILY [facility] Last Admin: 02/24/17 09:28 Dose: 20 mg Heparin Sodium (Porcine) (Heparin Flush Picc/Ml/Cvc(*)) 1 ml FLUSH 0900,2100 [facility] PRN Reason: Protocol Last Admin: 02/24/17 16:22 Dose: Not Given Ceftriaxone Sodium 2 gm/ (Sodium Chloride) 100 mls @ 200 mls/hr IVPB Q24H [facility] Stop: 02/24/17 23:59 Last Admin: 02/24/17 09:28 Dose: 200 mls/hr Insulin Glargine (Lantus(*)) 18 units SUBCUT Q24H [facility] Last Admin: 02/23/17 21:54 Dose: 18 units Insulin Human Lispro (Humalog*) 0 - 10 units SUBCUT ACHS [facility] PRN Reason: Protocol Last Admin: 02/24/17 17:49 Dose: 2 units Lactobacillus Rhamnosus (Culturelle*) 1 cap PO DAILY [facility] Last Admin: 02/24/17 09:28 Dose: 1 cap Magnesium Hydroxide (Milk Of Magnesia Liq*) 30 ml PO Q6H PRN PRN Reason: CONSTIPATION Metoprolol Tartrate (Lopressor Tab*) 25 mg PO BID [facility] Last Admin: 02/24/17 09:28 Dose: 25 mg Multi-Ingredient Ointment (Hydrocerin*) 1 applic TOPICAL BID [facility] Last Admin: 02/24/17 09:29 Dose: 1 applic Multivitamins/Minerals (Theragran/Minerals Tab*) 1 tab PO DAILY [facility] Last Admin: 02/24/17 09:29 Dose: 1 tab Nystatin (Nystatin Top Powder*) 1 applic TOPICAL TID [facility] Last Admin: 02/24/17 16:21 Dose: 1 applic Omeprazole (Prilosec Cap*) 20 mg PO 0600 [facility] Last Admin: 02/24/17 06:14 Dose: 20 mg Senna (Senokot Tab*) 2 tab PO BEDTIME PRN PRN Reason: CONSTIPATION Warfarin Sodium (Coumadin Tab(*)) 9 mg PO DAILY@1700 [facility] Last Admin: 02/24/17 16:21 Dose: 9 mg Glucose Results Blood Glucose Monitoring POC Start: 02/03/17 17: 48 Freq: ACHS Status: Active Protocol: Document 02/23/17 16:30 [id number] (Rec: 02/23/17 19:33 [id number] [facility]-C03) Blood Glucose Monitoring POC Glucose Obtained Yes Glucose Result Being Addressed/Treated ( 130 mg/dL) Blood Glucose Method POC Glucose (bedside) Document 02/23/17 20:09 [id number] (Rec: 02/23/17 20:09 [id number] [facility]-M02) Blood Glucose Monitoring POC Glucose Obtained Yes Glucose Result Being Addressed/Treated ( 129 mg/dL) Blood Glucose Method POC Glucose (bedside) Document 02/24/17 07:30 [id number] (Rec: 02/24/17 09:00 [id number] [facility]-M02) Blood Glucose Monitoring POC Glucose Obtained Yes Glucose Result Being Addressed/Treated ( 110 mg/dL) Blood Glucose Method POC Glucose (bedside) Document 02/24/17 11:30 [id number] (Rec: 02/24/17 12:00 [id number]-C07) Blood Glucose Monitoring POC Glucose Obtained Yes Glucose Result Being Addressed/Treated ( 134 mg/dL) Blood Glucose Method POC Glucose (bedside) Vital Signs Temp Pulse Resp BP Pulse Ox 98.0 F 62 16 123/73 99 02/24/17 14:59 02/24/17 14:59 02/24/17 16:24 02/24/17 14:59 02/24/17 14:59 EXAM: LUNGS: Clear bilat HEART: reg rhythm ABDOMEN: Soft +BS EXTREMITIES: Right foot wound ok. Slight drainage today ASSESSMENT/PLAN: 1. 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 Taking Prozac. Consider ritalin 2. Atrial fibrillation: Amiodarone. Coumadin. Check INR 02/25 3. Diabetes Mellitus: Lantus 18 units at HS. Lispro SSI. BS better 4. Right foot partial amputation: ortho has looked at wound. Continue WBAT, DSD. A little more drainage. Will ask ortho to recheck prior to d/c 5. Sepsis from foot wound/Endocarditis: Ceftriaxone 2 gm IV finished today 6. DVT Prophylaxis: Coumadin 9 mg 7. Advanced directives: is HCP 8. AVR with aortic root replacement: Will find a local barrel bridge assembler for her
[2017-02-24] MEDS: Insulin GLARGINE(*) 1 UNITS UNIT SUBCUT SCH (22:01)
[2017-02-25] MEDS: Omeprazole CAP* 20 MG PO SCH (06:26)
[2017-02-25] MEDS: Insulin LISPRO* 1 UNITS UNIT SUBCUT SCH ×4 (07:49→20:53)
[2017-02-25] MEDS: Multivitamins/Minerals TAB PO SCH (07:49)
[2017-02-25] MEDS: Metoprolol Tartrate TAB* 25 MG PO SCH ×2 (07:49→20:52)
[2017-02-25] MEDS: FLUoxetine CAP* 20 MG PO SCH (07:49)
[2017-02-25] MEDS: Aspirin EC Low Dose* 81 MG TAB.EC PO SCH (07:49)
[2017-02-25] MEDS: Lactobacillus Acidophilu (GG)* 1 CAP CAP PO SCH (07:49)
[2017-02-25] MEDS: Amiodarone TAB* 200 MG PO SCH (07:49)
[2017-02-25 08:58] LABS: ABS Basophils 0.1 10^3/ul (0-0.2); ABS Eosinophils 0.4 10^3/ul (0-0.6); ABS Lymphocytes 1.9 10^3/ul (1.0-4.8); ABS Monocytes 0.5 10^3/ul (0-0.8); ABS Neutrophils 3.7 10^3/ul (1.5-7.7); ABS Nucleated RBC 0 10^3/ul; Eosinophil % 5.7 % (0-6); Hematocrit 34 % (35-47); Lymphocyte % 29.2 % (25-47); Mean Corpuscular HGB Conc 32 g/dl (31-36); Mean Corpuscular Hemoglobin 26 pg (27-31); Mean Corpuscular Volume 80 fL (80-97); Mean Platelet Volume 8 um3 (7.4-10.4); Nucleated Red Blood Cells % 0.1; Platelet Count 312 10^3/ul (150-450); Red Blood Count 4.25 10^6/ul (4.0-5.4); Red Cell Distribution Width 20 % (10.5-15); White Blood Count 6.5 10^3/ul (3.5-10.8)
[2017-02-25 09:07] LABS: INR 2.22 (0.77-1.02)
[2017-02-25] MEDS: Nystatin TOP POWDER* 15 GM BTL TOPICAL SCH ×3 (09:10→20:52)
[2017-02-25] MEDS: Moisturizing CREAM* 120 GM JAR TOPICAL SCH ×2 (09:10→20:54)
[2017-02-25 09:13] LABS: EGFR Non-African American 52.9 (>60)
--- NOTE | 2017-02-25 12:23 | PN ---
Progress Note - Progress Note Date of Service: 02/25/17 Note: No new issues overnight. No chest pain, shortness of breath or abdominal pain. Nursing and therapy notes reviewed. Her vision is improving over time. Acetaminophen (Tylenol Tab*) 650 mg PO Q6H PRN PRN Reason: FEVER/PAIN Last Admin: 02/04/17 06:13 Dose: 650 mg Amiodarone HCl (Cordarone Tab*) 200 mg PO DAILY [facility] Last Admin: 02/25/17 07:49 Dose: 200 mg Aspirin (Aspirin Ec Low Dose*) 81 mg PO DAILY [facility] Last Admin: 02/25/17 07:49 Dose: 81 mg Dextrose (D50w Syringe 50 Ml*) 12.5 gm IV PUSH .FOR FS < 60 - SS PRN PRN Reason: FS < 60 Docusate Sodium (Colace Cap*) 100 mg PO BID PRN PRN Reason: CONSTIPATION Fluoxetine HCl (Prozac Cap*) 20 mg PO DAILY [facility] Last Admin: 02/25/17 07:49 Dose: 20 mg Heparin Sodium (Porcine) (Heparin Flush Picc/Ml/Cvc(*)) 1 ml FLUSH 0900,2100 [facility] PRN Reason: Protocol Last Admin: 02/24/17 22:01 Dose: 1 ml Insulin Glargine (Lantus(*)) 18 units SUBCUT Q24H [facility] Last Admin: 02/24/17 22:01 Dose: 18 units Insulin Human Lispro (Humalog*) 0 - 10 units SUBCUT ACHS [facility] PRN Reason: Protocol Last Admin: 02/25/17 07:49 Dose: Not Given Lactobacillus Rhamnosus (Culturelle*) 1 cap PO DAILY [facility] Last Admin: 02/25/17 07:49 Dose: 1 cap Magnesium Hydroxide (Milk Of Magnesia Liq*) 30 ml PO Q6H PRN PRN Reason: CONSTIPATION Metoprolol Tartrate (Lopressor Tab*) 25 mg PO BID [facility] Last Admin: 02/25/17 07:49 Dose: 25 mg Multi-Ingredient Ointment (Hydrocerin*) 1 applic TOPICAL BID [facility] Last Admin: 02/24/17 22:02 Dose: 1 applic Multivitamins/Minerals (Theragran/Minerals Tab*) 1 tab PO DAILY [facility] Last Admin: 02/25/17 07:49 Dose: 1 tab Nystatin (Nystatin Top Powder*) 1 applic TOPICAL TID [facility] Last Admin: 02/24/17 22:02 Dose: 1 applic Omeprazole (Prilosec Cap*) 20 mg PO 0600 [facility] Last Admin: 02/25/17 06:26 Dose: 20 mg Senna (Senokot Tab*) 2 tab PO BEDTIME PRN PRN Reason: CONSTIPATION Warfarin Sodium (Coumadin Tab(*)) 9 mg PO DAILY@1700 [facility] Last Admin: 02/24/17 16:21 Dose: 9 mg Vital Signs 02/24/17 02/24/17 02/25/17 14:59 16:24 06:25 Temperature 98.0 F Pulse Rate 62 Respiratory 16 16 Rate Blood Pressure 123/73 (mmHg) O2 Sat by Pulse 99 95 Oximetry 02/25/17 02/25/17 06:28 08:00 Temperature 98.0 F Pulse Rate 63 Respiratory 18 18 Rate Blood Pressure 150/67 (mmHg) O2 Sat by Pulse 95 95 Oximetry EXAM: GEN: No acute distress. Alert and appropriate LUNGS: Clear bilaterally to auscultation HEART: regular rate and rhythm ABDOMEN: Soft +BS, non-tender, non-distended EXTREMITIES: No edema. Legs rina wrapped. Laboratory Results - last 24 hr 02/24/17 02/24/17 02/25/17 16:50 19:58 07:30 WBC RBC Hgb Hct MCV MCH MCHC RDW Plt Count MPV Neut % (Auto) Lymph % (Auto) Coleman % (Auto) Eos % (Auto) Baso % (Auto) Absolute Neuts (auto) Absolute Lymphs (auto) Absolute Monos (auto) Absolute Eos (auto) Absolute Basos (auto) Absolute Nucleated RBC Nucleated RBC % INR (Anticoag Therapy) Sodium Potassium Chloride Carbon Dioxide Anion Gap BUN Creatinine Est GFR ( Amer) Est GFR (Non-Af Amer) BUN/Creatinine Ratio Glucose POC Glucose (mg/dL) 159 H 140 H 112 H Calcium Total Bilirubin AST ALT Alkaline Phosphatase Total Protein Albumin Globulin Albumin/Globulin Ratio 02/25/17 02/25/17 02/25/17 07:40 07:40 07:40 WBC 6.5 RBC 4.25 Hgb 11.0 L Hct 34 L MCV 80 MCH 26 L MCHC 32 RDW 20 H Plt Count 312 MPV 8 Neut % (Auto) 56.7 Lymph % (Auto) 29.2 Coleman % (Auto) 7.2 Eos % (Auto) 5.7 Baso % (Auto) 1.2 Absolute Neuts (auto) 3.7 Absolute Lymphs (auto) 1.9 Absolute Monos (auto) 0.5 Absolute Eos (auto) 0.4 Absolute Basos (auto) 0.1 Absolute Nucleated RBC 0 Nucleated RBC % 0.1 INR (Anticoag Therapy) 2.22 H Sodium 138 Potassium 4.6 Chloride 107 Carbon Dioxide 25 Anion Gap 6 BUN 22 Creatinine 1.09 H Est GFR ( Amer) 68.1 Est GFR (Non-Af Amer) 52.9 BUN/Creatinine Ratio 20.2 H Glucose 107 H POC Glucose (mg/dL) Calcium 9.1 Total Bilirubin 0.30 AST 16 ALT 18 Alkaline Phosphatase 84 Total Protein 7.1 Albumin 3.2 Globulin 3.9 Albumin/Globulin Ratio 0.8 L 02/25/17 11:48 WBC RBC Hgb Hct MCV MCH MCHC RDW Plt Count MPV Neut % (Auto) Lymph % (Auto) Coleman % (Auto) Eos % (Auto) Baso % (Auto) Absolute Neuts (auto) Absolute Lymphs (auto) Absolute Monos (auto) Absolute Eos (auto) Absolute Basos (auto) Absolute Nucleated RBC Nucleated RBC % INR (Anticoag Therapy) Sodium Potassium Chloride Carbon Dioxide Anion Gap BUN Creatinine Est GFR ( Amer) Est GFR (Non-Af Amer) BUN/Creatinine Ratio Glucose POC Glucose (mg/dL) 127 H Calcium Total Bilirubin AST ALT Alkaline Phosphatase Total Protein Albumin Globulin Albumin/Globulin Ratio IMPRESSION/PLAN: 51yo woman s/p sepsis with endocarditis s/p AVR and aortic root replacement, encephalopathy, septic embolic strokes, paroxysmal atrial fibrillation, right great toe amputation with healing wound with h/o ostomyelitis #Bilateral CVA from Septic Emboli: 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 Prozac. Vision improving by her report. #Acute renal failure - resolved. Continue off metformin. #Chest and upper back pain episodes 02/05 - Likely musculoskeletal given decreased mobility and sternotomy. #Anxiety and depression - Prozac. #h/o Sepsis - completed ceftriaxone 2g q24h on 02/24/17. #Paroxysmal Atrial Fibrillation - INR therapeutic. Continue coumadin. INR M/W/ F. Amiodarone. #Right great toe amputation with healing wound and h/o osteomyelitis - f/u with Dr. Lucero. Dry dressing chages. WBAT with post-op shoe. #s/p AVR and aortic root replacement - Find local legal support specialist for f/u after discharge #Diabetes mellitus - Lantus 18 units at HS. Lispro SSI. Will need someone to do for her at d/c. #DVT ppx - coumadin. #Advanced directives - is hcp
[2017-02-25] MEDS: Warfarin TAB(*) 3 MG PO SCH (17:11)
[2017-02-25] MEDS: Insulin GLARGINE(*) 1 UNITS UNIT SUBCUT SCH (20:54)
[2017-02-26] MEDS: Omeprazole CAP* 20 MG PO SCH (06:19)
[2017-02-26] MEDS: Amiodarone TAB* 200 MG PO SCH (08:23)
[2017-02-26] MEDS: Lactobacillus Acidophilu (GG)* 1 CAP CAP PO SCH (08:23)
[2017-02-26] MEDS: Multivitamins/Minerals TAB PO SCH (08:23)
[2017-02-26] MEDS: Aspirin EC Low Dose* 81 MG TAB.EC PO SCH (08:23)
[2017-02-26] MEDS: Metoprolol Tartrate TAB* 25 MG PO SCH ×2 (08:23→21:01)
[2017-02-26] MEDS: Insulin LISPRO* 1 UNITS UNIT SUBCUT SCH ×4 (08:23→21:02)
[2017-02-26] MEDS: FLUoxetine CAP* 20 MG PO SCH (08:23)
[2017-02-26] MEDS: Moisturizing CREAM* 120 GM JAR TOPICAL SCH ×2 (08:27→21:04)
[2017-02-26] MEDS: Nystatin TOP POWDER* 15 GM BTL TOPICAL SCH ×3 (08:27→21:03)
--- NOTE | 2017-02-26 11:50 | PN ---
Progress Note - Progress Note Date of Service: 02/26/17 Note: No new issues overnight. She is good spirits with her visiting. No chest pain, shortness of breath or abdominal pain. Nursing and therapy notes reviewed. Acetaminophen (Tylenol Tab*) 650 mg PO Q6H PRN PRN Reason: FEVER/PAIN Last Admin: 02/04/17 06:13 Dose: 650 mg Amiodarone HCl (Cordarone Tab*) 200 mg PO DAILY [facility] Last Admin: 02/26/17 08:23 Dose: 200 mg Aspirin (Aspirin Ec Low Dose*) 81 mg PO DAILY [facility] Last Admin: 02/26/17 08:23 Dose: 81 mg Dextrose (D50w Syringe 50 Ml*) 12.5 gm IV PUSH .FOR FS < 60 - SS PRN PRN Reason: FS < 60 Docusate Sodium (Colace Cap*) 100 mg PO BID PRN PRN Reason: CONSTIPATION Fluoxetine HCl (Prozac Cap*) 20 mg PO DAILY [facility] Last Admin: 02/26/17 08:23 Dose: 20 mg Heparin Sodium (Porcine) (Heparin Flush Picc/Ml/Cvc(*)) 1 ml FLUSH 0900,2100 [facility] PRN Reason: Protocol Last Admin: 02/26/17 08:25 Dose: 1 ml Insulin Glargine (Lantus(*)) 18 units SUBCUT Q24H [facility] Last Admin: 02/25/17 20:54 Dose: 18 units Insulin Human Lispro (Humalog*) 0 - 10 units SUBCUT ACHS [facility] PRN Reason: Protocol Last Admin: 02/26/17 08:23 Dose: Not Given Lactobacillus Rhamnosus (Culturelle*) 1 cap PO DAILY [facility] Last Admin: 02/26/17 08:23 Dose: 1 cap Magnesium Hydroxide (Milk Of Magnesia Liq*) 30 ml PO Q6H PRN PRN Reason: CONSTIPATION Metoprolol Tartrate (Lopressor Tab*) 25 mg PO BID [facility] Last Admin: 02/26/17 08:23 Dose: 25 mg Multi-Ingredient Ointment (Hydrocerin*) 1 applic TOPICAL BID [facility] Last Admin: 02/26/17 08:27 Dose: 1 applic Multivitamins/Minerals (Theragran/Minerals Tab*) 1 tab PO DAILY [facility] Last Admin: 02/26/17 08:23 Dose: 1 tab Nystatin (Nystatin Top Powder*) 1 applic TOPICAL TID [facility] Last Admin: 02/26/17 08:27 Dose: 1 applic Omeprazole (Prilosec Cap*) 20 mg PO 0600 [facility] Last Admin: 02/26/17 06:19 Dose: 20 mg Senna (Senokot Tab*) 2 tab PO BEDTIME PRN PRN Reason: CONSTIPATION Warfarin Sodium (Coumadin Tab(*)) 9 mg PO DAILY@1700 [facility] Last Admin: 02/25/17 17:11 Dose: 9 mg Vital Signs 02/25/17 02/25/17 02/26/17 15:50 16:08 06:17 Temperature 97.6 F Pulse Rate 56 Respiratory 18 Rate Blood Pressure 125/63 (mmHg) O2 Sat by Pulse 95 99 97 Oximetry 02/26/17 06:20 Temperature 98.2 F Pulse Rate 61 Respiratory 20 Rate Blood Pressure 143/57 (mmHg) O2 Sat by Pulse 97 Oximetry EXAM: GEN: No acute distress. Alert and appropriate LUNGS: Clear bilaterally to auscultation HEART: regular rate and rhythm ABDOMEN: Soft +BS, non-tender, non-distended EXTREMITIES: No edema. Right foot with no drainage, but gauze was sticking to wound in a small area. No erythema or active drainage. SKIN: mild erythema under breasts, in groin and skin folds. 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 #Acute renal failure - resolved. Continue off metformin. #Chest and upper back pain episodes 02/05 - Likely musculoskeletal given decreased mobility and sternotomy. #Anxiety and depression - Prozac. #h/o Sepsis - completed ceftriaxone 2g q24h on 02/24/17. PICC still used for blood draws as she is difficult to get blood from, but d/c picc prior to d/c. #Paroxysmal Atrial Fibrillation - INR therapeutic. Continue coumadin. INR M/W/ F. Amiodarone. #Right great toe amputation with healing wound and h/o osteomyelitis - f/u with Dr. Lucero. Dry dressing changes. WBAT with post-op shoe. #s/p AVR and aortic root replacement - Find local digital camera technician for f/u after discharge #Diabetes mellitus - Lantus 18 units at HS. Lispro SSI. Will need someone to do for her at d/c. #DVT ppx - coumadin. #Advanced directives - is hcp #Estimated LOS - family training on 02/28/17 and d/c palnned 03/04/17 pending training.
[2017-02-26] MEDS: Warfarin TAB(*) 3 MG PO SCH (17:15)
[2017-02-26] MEDS: Insulin GLARGINE(*) 1 UNITS UNIT SUBCUT SCH (21:02)
[2017-02-27] MEDS: Omeprazole CAP* 20 MG PO SCH (06:06)
[2017-02-27] MEDS: Insulin LISPRO* 1 UNITS UNIT SUBCUT SCH ×4 (08:33→21:34)
[2017-02-27] MEDS: Aspirin EC Low Dose* 81 MG TAB.EC PO SCH (08:37)
[2017-02-27] MEDS: Amiodarone TAB* 200 MG PO SCH (08:37)
[2017-02-27] MEDS: Multivitamins/Minerals TAB PO SCH (08:37)
[2017-02-27] MEDS: FLUoxetine CAP* 20 MG PO SCH (08:37)
[2017-02-27] MEDS: Lactobacillus Acidophilu (GG)* 1 CAP CAP PO SCH (08:37)
[2017-02-27] MEDS: Metoprolol Tartrate TAB* 25 MG PO SCH ×2 (08:37→21:30)
[2017-02-27] MEDS: Nystatin TOP POWDER* 15 GM BTL TOPICAL SCH ×3 (08:38→21:30)
[2017-02-27] MEDS: Moisturizing CREAM* 120 GM JAR TOPICAL SCH ×2 (08:38→21:35)
--- NOTE | 2017-02-27 11:22 | PN ---
Progress Note - Progress Note Date of Service: 02/27/17 Note: No new issues overnight. No chest pain, shortness of breath or abdominal pain. Nursing and therapy notes reviewed. Acetaminophen (Tylenol Tab*) 650 mg PO Q6H PRN PRN Reason: FEVER/PAIN Last Admin: 02/04/17 06:13 Dose: 650 mg Amiodarone HCl (Cordarone Tab*) 200 mg PO DAILY [facility] Last Admin: 02/27/17 08:37 Dose: 200 mg Aspirin (Aspirin Ec Low Dose*) 81 mg PO DAILY [facility] Last Admin: 02/27/17 08:37 Dose: 81 mg Dextrose (D50w Syringe 50 Ml*) 12.5 gm IV PUSH .FOR FS < 60 - SS PRN PRN Reason: FS < 60 Docusate Sodium (Colace Cap*) 100 mg PO BID PRN PRN Reason: CONSTIPATION Fluoxetine HCl (Prozac Cap*) 20 mg PO DAILY [facility] Last Admin: 02/27/17 08:37 Dose: 20 mg Heparin Sodium (Porcine) (Heparin Flush Picc/Ml/Cvc(*)) 1 ml FLUSH 0900,2100 [facility] PRN Reason: Protocol Last Admin: 02/27/17 08:38 Dose: 1 ml Insulin Glargine (Lantus(*)) 18 units SUBCUT Q24H [facility] Last Admin: 02/26/17 21:02 Dose: 18 units Insulin Human Lispro (Humalog*) 0 - 10 units SUBCUT ACHS [facility] PRN Reason: Protocol Last Admin: 02/27/17 08:33 Dose: Not Given Lactobacillus Rhamnosus (Culturelle*) 1 cap PO DAILY [facility] Last Admin: 02/27/17 08:37 Dose: 1 cap Magnesium Hydroxide (Milk Of Magnesia Liq*) 30 ml PO Q6H PRN PRN Reason: CONSTIPATION Metoprolol Tartrate (Lopressor Tab*) 25 mg PO BID [facility] Last Admin: 02/27/17 08:37 Dose: 25 mg Multi-Ingredient Ointment (Hydrocerin*) 1 applic TOPICAL BID [facility] Last Admin: 02/27/17 08:38 Dose: 1 applic Multivitamins/Minerals (Theragran/Minerals Tab*) 1 tab PO DAILY [facility] Last Admin: 02/27/17 08:37 Dose: 1 tab Nystatin (Nystatin Top Powder*) 1 applic TOPICAL TID [facility] Last Admin: 02/27/17 08:38 Dose: 1 applic Omeprazole (Prilosec Cap*) 20 mg PO 0600 [facility] Last Admin: 02/27/17 06:06 Dose: 20 mg Senna (Senokot Tab*) 2 tab PO BEDTIME PRN PRN Reason: CONSTIPATION Warfarin Sodium (Coumadin Tab(*)) 9 mg PO DAILY@1700 [facility] Last Admin: 02/26/17 17:15 Dose: 9 mg Vital Signs 02/26/17 02/26/17 02/27/17 15:41 19:48 06:08 Temperature 98.3 F 97.9 F Pulse Rate 55 60 Respiratory 20 20 20 Rate Blood Pressure 129/66 142/66 (mmHg) O2 Sat by Pulse 100 97 Oximetry 02/27/17 02/27/17 06:09 08:54 Temperature Pulse Rate Respiratory 20 Rate Blood Pressure (mmHg) O2 Sat by Pulse 100 100 Oximetry EXAM: GEN: No acute distress. Alert and appropriate LUNGS: Clear bilaterally to auscultation HEART: regular rate and rhythm ABDOMEN: Soft +BS, non-tender, non-distended EXTREMITIES: No edema. Right foot with no drainage or erythema. SKIN: mild erythema under breasts, in groin and skin folds. 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 #Acute renal failure - resolved. Continue off metformin. #Chest and upper back pain episodes 02/05 - Likely musculoskeletal given decreased mobility and sternotomy. #Anxiety and depression - Prozac. #h/o Sepsis - completed ceftriaxone 2g q24h on 02/24/17. PICC still used for blood draws as she is difficult to get blood from, but d/c picc prior to d/c. #Paroxysmal Atrial Fibrillation - INR therapeutic. Continue coumadin. INR M/W/ F. Amiodarone. #Right great toe amputation with healing wound and h/o osteomyelitis - f/u with Dr. Lucero. Dry dressing changes. WBAT with post-op shoe. #s/p AVR and aortic root replacement - Find local blackjack dealer for f/u after discharge #Diabetes mellitus - Lantus 18 units at HS. Lispro SSI. Will need someone to do for her at d/c. Needs new glucometer for d/c. #DVT ppx - coumadin. #Advanced directives - is hcp #Estimated LOS - family training on 02/28/17 and d/c planned 03/04/17 pending training.
[2017-02-27] MEDS: Warfarin TAB(*) 3 MG PO SCH (16:45)
[2017-02-27] MEDS: Insulin GLARGINE(*) 1 UNITS UNIT SUBCUT SCH (21:30)
[2017-02-28] MEDS: Omeprazole CAP* 20 MG PO SCH (05:35)
[2017-02-28 06:38] LABS: INR 2.24 (0.77-1.02)
[2017-02-28] MEDS: Insulin LISPRO* 1 UNITS UNIT SUBCUT SCH ×4 (07:44→20:10)
[2017-02-28] MEDS: Multivitamins/Minerals TAB PO SCH (08:38)
[2017-02-28] MEDS: Aspirin EC Low Dose* 81 MG TAB.EC PO SCH (08:38)
[2017-02-28] MEDS: Lactobacillus Acidophilu (GG)* 1 CAP CAP PO SCH (08:38)
[2017-02-28] MEDS: FLUoxetine CAP* 20 MG PO SCH (08:38)
[2017-02-28] MEDS: Amiodarone TAB* 200 MG PO SCH (08:38)
[2017-02-28] MEDS: Metoprolol Tartrate TAB* 25 MG PO SCH ×2 (08:39→20:12)
[2017-02-28] MEDS: Moisturizing CREAM* 120 GM JAR TOPICAL SCH ×2 (09:49→20:15)
[2017-02-28] MEDS: Nystatin TOP POWDER* 15 GM BTL TOPICAL SCH ×3 (09:49→20:15)
--- NOTE | 2017-02-28 13:35 | PN ---
Progress Note - Progress Note Date of Service: 02/28/17 Note: No new issues overnight. No chest pain, shortness of breath or abdominal pain. Nursing and therapy notes reviewed. Completed family training today. Acetaminophen (Tylenol Tab*) 650 mg PO Q6H PRN PRN Reason: FEVER/PAIN Last Admin: 02/04/17 06:13 Dose: 650 mg Amiodarone HCl (Cordarone Tab*) 200 mg PO DAILY [facility] Last Admin: 02/28/17 08:38 Dose: 200 mg Aspirin (Aspirin Ec Low Dose*) 81 mg PO DAILY [facility] Last Admin: 02/28/17 08:38 Dose: 81 mg Dextrose (D50w Syringe 50 Ml*) 12.5 gm IV PUSH .FOR FS < 60 - SS PRN PRN Reason: FS < 60 Docusate Sodium (Colace Cap*) 100 mg PO BID PRN PRN Reason: CONSTIPATION Fluoxetine HCl (Prozac Cap*) 20 mg PO DAILY [facility] Last Admin: 02/28/17 08:38 Dose: 20 mg Heparin Sodium (Porcine) (Heparin Flush Picc/Ml/Cvc(*)) 1 ml FLUSH 0900,2100 [facility] PRN Reason: Protocol Last Admin: 02/28/17 08:39 Dose: 1 ml Insulin Glargine (Lantus(*)) 18 units SUBCUT Q24H [facility] Last Admin: 02/27/17 21:30 Dose: 18 units Insulin Human Lispro (Humalog*) 0 - 10 units SUBCUT ACHS [facility] PRN Reason: Protocol Last Admin: 02/28/17 12:28 Dose: 1 units Lactobacillus Rhamnosus (Culturelle*) 1 cap PO DAILY [facility] Last Admin: 02/28/17 08:38 Dose: 1 cap Magnesium Hydroxide (Milk Of Magnesia Liq*) 30 ml PO Q6H PRN PRN Reason: CONSTIPATION Metoprolol Tartrate (Lopressor Tab*) 25 mg PO BID [facility] Last Admin: 02/28/17 08:39 Dose: 25 mg Multi-Ingredient Ointment (Hydrocerin*) 1 applic TOPICAL BID [facility] Last Admin: 02/28/17 09:49 Dose: 1 applic Multivitamins/Minerals (Theragran/Minerals Tab*) 1 tab PO DAILY [facility] Last Admin: 02/28/17 08:38 Dose: 1 tab Nystatin (Nystatin Top Powder*) 1 applic TOPICAL TID [facility] Last Admin: 02/28/17 09:49 Dose: 1 applic Omeprazole (Prilosec Cap*) 20 mg PO 0600 [facility] Last Admin: 02/28/17 05:35 Dose: 20 mg Senna (Senokot Tab*) 2 tab PO BEDTIME PRN PRN Reason: CONSTIPATION Warfarin Sodium (Coumadin Tab(*)) 9 mg PO DAILY@1700 [facility] Last Admin: 02/27/17 16:45 Dose: 9 mg Vital Signs 02/27/17 02/27/17 02/28/17 18:17 20:00 05:48 Temperature 97.9 F 98.9 F Pulse Rate 56 63 Respiratory 16 16 18 Rate Blood Pressure 126/69 141/59 (mmHg) O2 Sat by Pulse 99 95 Oximetry 02/28/17 08:00 Temperature Pulse Rate Respiratory Rate Blood Pressure (mmHg) O2 Sat by Pulse 95 Oximetry EXAM: GEN: No acute distress. Alert and appropriate LUNGS: Clear bilaterally to auscultation HEART: regular rate and rhythm ABDOMEN: Soft +BS, non-tender, non-distended EXTREMITIES: No edema. Right foot dressed. SKIN: mild erythema under breasts, in groin and skin folds. 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 Prozac. #Acute renal failure - resolved. Continue off metformin. #Anxiety and depression - Prozac. #h/o Sepsis - completed ceftriaxone 2g q24h on 02/24/17. PICC still used for blood draws as she is difficult to get blood from, but d/c picc prior to d/c. #Paroxysmal Atrial Fibrillation - INR therapeutic. Continue coumadin. INR M/W/ F. Amiodarone. #Right great toe amputation with healing wound and h/o osteomyelitis - f/u with Dr. Lucero. Dry dressing changes. WBAT with post-op shoe. #s/p AVR and aortic root replacement - Find local mental health program manager for f/u after discharge. I asked SW to assist with getting appt. #Diabetes mellitus - Lantus 18 units at HS. Lispro SSI. and mother-in- law will help with this at d/c. Given rx for new glucometer and test strips. #DVT ppx - coumadin. #Advanced directives - is hcp #Estimated LOS - family training completed on 02/28/17. I spoke to her over the weekend and her [id number] today about moving up d/c date as therapists feel she could go in next day or two. They agreed to d/c on Tuesday.
[2017-02-28] MEDS: Warfarin TAB(*) 3 MG PO SCH (16:52)
[2017-02-28] MEDS: Insulin GLARGINE(*) 1 UNITS UNIT SUBCUT SCH (20:12)
[2017-03-01] MEDS: Omeprazole CAP* 20 MG PO SCH (06:09)
[2017-03-01] MEDS: Insulin LISPRO* 1 UNITS UNIT SUBCUT SCH ×4 (07:53→20:48)
[2017-03-01] MEDS: Aspirin EC Low Dose* 81 MG TAB.EC PO SCH (08:52)
[2017-03-01] MEDS: Amiodarone TAB* 200 MG PO SCH (08:52)
[2017-03-01] MEDS: Lactobacillus Acidophilu (GG)* 1 CAP CAP PO SCH (08:52)
[2017-03-01] MEDS: Metoprolol Tartrate TAB* 25 MG PO SCH ×2 (08:52→20:47)
[2017-03-01] MEDS: Multivitamins/Minerals TAB PO SCH (08:52)
[2017-03-01] MEDS: FLUoxetine CAP* 20 MG PO SCH (08:52)
[2017-03-01] MEDS: Nystatin TOP POWDER* 15 GM BTL TOPICAL SCH ×3 (09:52→20:01)
[2017-03-01] MEDS: Moisturizing CREAM* 120 GM JAR TOPICAL SCH ×2 (09:52→20:57)
--- NOTE | 2017-03-01 12:41 | PMRUTEAM ---
PMRU: Goals Current Status: Nursing: Current Status Skin Deviations [Left Anterior Wound Foot] Skin Deviations [Lateral Bruise Abdomen] Skin Deviations [Right Foot] Incision Skin Deviations [Midline Chest Incision ] Skin Deviations [Left Upper Incision Chest] Skin Deviations [Medial Abrasion Buttocks] Skin Deviations [Right Upper Bruise Thigh] Skin Deviations [Bilateral Other Groin] Skin Deviation Description [ scant yellow crust noted on dressing from Left Anterior Foot] overnight Skin Deviation Description [ reddened Lateral Abdomen] Skin Deviation Description [ dressing fell off in bed, cleaned with NS. No Right Foot] drainage noted. Placed gauze and wrapped with kerlex. Skin is dry and flaky. Some reddness noted. Skin Deviation Description [ nearly healed Midline Chest] Skin Deviation Description [ nearly healed Left Upper Chest] Skin Deviation Description [ cracked skin, unchanged Medial Buttocks] Skin Deviation Description [ redness - skin prep applied Right Upper Thigh] Skin Deviation Description [ redness Bilateral Groin] healing -nystatin applied Bladder Current Status No incontinence, up walking to BR, will hold urine for over 12 hours Bowel Current Status Up to bathroom GB walker for safety continent LBM 03/01/17 Nutrition Current Status appetite increased Medication Current Status needs reinforcement poor short term memory Physical Therapy: Current Status Bed Mobility Assistance Supervision Transfer Moblility Assistance Supervision Transfer/Bed Mobility Rolling Walker Recommended Devices Transfer Mobility Comment Pt. is able to perform a SPT using a 2 w/w S x 1. Ambulation Assistance Supervision Ambulation Assistive Devices Rolling Walker Number of Feet Patient 150' Ambulated Ambulation Comment Pt. presents a wide SNOW improved reciprocal type gait pattern. Stairs Assistance Supervision Stairs Recommended Devices Two Rails Number of Stairs 5 Curb Not Tested Objective Comments patient completes step ups on one step this date - tolerates well, though has difficulty maintainign etect trunk in movement. Occupational Therapy: Current Status Upper Body Dressing Independent Lower Body Dressing Independent Bathing Min Assist Toileting Min Assist Toilet Transfer Ind with Adaptive Equip Shower Transfer Ind with Adaptive Equip Eating Independent Rec Therapy: Current Status Summary of Assessment and RT assessment complete and pt. is aware of RT Clinical Impression services. Pt. is with visitors much of the time in the afternoons but listens to music and is open to continued visits. Treatment Goals Pt. will engage in leisure activities while on the unit. Treatment Plan Provide RT services and encourage involvement. Social Work: Current Status Discharge Plan return home with home care svs and family support Potential for Family Training pt's and mother in law attended family training on 02/28 Anticipated Discharge Home Destination Discharge With [facility] and family support Nutrition: Current Status Monitoring po intake remains consistently improved and adequate, much more so than when adm in Jan. Cont w/18 units Lantus + Humalog correction. FS ranging 104-152, therefore, much better controlled than at home. Offered instruction on DM management 02/23; pt accepted some handouts on carb counting and a chart of serving sizes. Will follow up for any questions and further instruction if pt accepts. Explanation and handout also provided for Coumadin/vit K interaction. Pt without questions at this time. Speech: Current Status Assessment Patient has met her skilled speech-language pathology goals and will be discharged from skilled speech-language pathology services at this time. Discussed with PMRU team, Tova PT, Syl OT, and Wandy OT. Goals: Physical Therapy: Initial Goals Bed Mobility Assistance Independent Transfer Mobility Assistance Independent Transfer/Bed Mobility Rolling Walker Recommended Devices Ambulation Independent Ambulation Recommended Devices Rolling Walker Ambulation Distance 150 Stairs Assistance Independent Stair Recommended Devices Two Rails Number of Stairs 5 Physical Therapy: Updated Goals Bed Mobility Assistance Independent Transfer Mobility Assistance Independent Transfer/Bed Mobility Rolling Walker,EZ Stand Recommended Devices Ambulation Assistance Independent Ambulation Assistive Devices Rolling Walker Ambulation Distance (ft) 150 Stairs Assistance Independent Stairs Recommended Devices Two Rails Number of Stairs 5 Home Exercise Program Independent Assistance Occupational Therapy: Initial Goals Goals to be Completed in (Days 21-28 days ) Upper Body Bathing Routine Modified Independent with Lower Body Bathing Routine Minimal Contact Assist Upper Body Dressing Routine Modified Independent with Lower Body Dressing Routine Modified Independent with Toilet Hygeine and Clothing Minimal Contact Assist Management Routine Toilet Transfer Routine Modified Independent with Tub Transfer Routine Modified Independent with Functional Transfers for ADL Modified Independent with Grooming Routine Modified Independent with Feeding Routine Independent Nursing: Goals Bladder Goal independent Bowel Goal independent Nutrition Goal 90% of all meals Medication Goal needs supervision of meds and diabetes to assist Nutrition: Goals Intervention Goals 1. maintain po intake >60% of meals 2. adequate po intake to maintain hydration and lean body mass without add'l wt gain 3. skin will show evidence of healing and without further breakdown 4. adequate glycemic control in PMRU setting without s/sx hypo- or hyperglycemia 5. maintain regulated bowel pattern without constipation/diarrhea 6. pt and family will have an understanding of eating with diabetes prior to discharge Speech: Goals Speech Goal 1 Receptive Language Speech Current Status Goal 1 Met 02/08/17 Goal 1 Comments LTG: The patient will participate in functional daily activities without deficit with language comprehension skills. Status: Goal achieved, 02/08/17. Speech Goal 2 Memory Speech Goal 2 Current Status Met 02/11/17 Speech Goal 2 Comments LTG: The patient will participate in functional daily activities, independently utilizing compensatory strategies in order to recall important information successfully. Status: Goal achieved, 02/11/17. Patient will require assistance with recall of lengthier pieces of information due to decreased ability to write and read at this time secondary to poor vision. ST)The patient will learn and practice compensatory strategies for recall of information with greater than 90% accuracy, minimal cues. Status: Objective achieved, 02/09/17. 2)The patient will successfully complete working memory / recall tasks with 50% accuracy, minimal cues. Status: Temporal orientation, current personal/ surroundings questions: 100% accuracy, no cues; extra time provided. Working memory (auditory-based): *mental manipulation, word progression field of 3: 100% accuracy, no cues. *scrambled sentences field of 5 words: 100% accuracy, no cues. *paragraph retention (2-3 sentences at a time; independent use of verbal repetition strategy to retain information): 100% accuracy, no cues. *Lengthier information deferred due to patient's inability to write and/or read as strategies due to her poor vision at this time. Vision: Therapist asked patient to look at large, colorful picture cards: Patient noted to have increased vision to LEFT; tended to hold picture closer to her face in order to read smaller print. Patient scanned therapist's hand when starting on patient's LEFT side; patient reported that the hand disappeared once passing mid-line, toward right. Discussed with ARIAN Saba. Patient has met objective this date, 02/11/17. *Of note: This therapist changed patient's Problem Solving FIM goal from 7 to 5, as the patient is experiencing difficulties with her vision. Patient is able to verbally state appropriate solutions to complex problems; however, due to her vision she will likely require assistance with finances, medication management, etcetera for optimal safety and accuracy. Social Work: Goals Discharge Plan return home with home care svs and family support Potential for Family Training pt's and mother in law attended family training on 02/28 Anticipated Discharge Home Destination Discharge With [facility] and family support Care Plan: Care Plan ADL's - Improve/Maintain Start: 02/04/17 16:05 Freq: DAILY Status: Active Target: Protocol: Activity Type Activity Date Activity User E-Sign Co-Sign Detail Recorded Client Recorded Date Recorded By Document 02/25/17 11:47 [id number] [facility] [place]-[facility]DC[facility] 02/25/17 11:47 [id number] 02/25/17 11:47 PMRU Outcome: ADL's/ADL Transfers Orders/Interventions Occupational Therapy Evaluation & Treatment Device Yes Patient to receive OT 5x/wk for 60-120 Therex min/day Self Care Management UE/LE ADL's with Assist Yes ADL Transfers with Assist Yes Toileting: Transfers,Clothing Management Yes ,Hygeine w/Assist Light Kitchen/Laundry w/Assist Yes Progression Toward Outcome/Goals Progressing Outcome/Goals Met Pt. demonstrates increased independence with lower body dressing being able to don post op shoe and sock. Pt. able to tolerate thereex routine well. Cardiovascular- Improve/Maintain Start: 02/04/17 10:46 Freq: DAILY Status: Complete Target: Protocol: Activity Type Activity Date Activity User E-Sign Co-Sign Detail Recorded Client Recorded Date Recorded By Document 02/17/17 20:00 [id number] [id number] 02/17/17 22:03 [id number] 02/17/17 20:00 PMRU Outcome: Cardiovascular Vital Signs q Shift for 48hrs Then BID Yes Daily Weight Ordered No Current Cardiovascular Outcome/Goal Maintain/ Achieve Baseline HR, BP , Perfusion Free of Abnormal Cardiac Symptoms Outcomes/Goals Met Maintain/ Achieve Baseline HR, BP , Perfusion Maintain/ Improve Perfusion Communication-Improve/Maintain Start: 02/04/17 14:53 Freq: DAILY Status: Active Target: Protocol: Activity Type Activity Date Activity User E-Sign Co-Sign Detail Recorded Client Recorded Date Recorded By Document 03/01/17 01:14 [id number] [email or web address] 03/01/17 01:16 [id number] 03/01/17 01:14 PMRU Outcome: Communication/Cognitive Status Outcome/Goals Makes Needs Known Effectively Progression Toward Outcomes/Goals Progressing Outcome/Goals Met Use Comm Tools/ Devices Other Coping/Psych-Improve/Maintain Start: 02/04/17 10:46 Freq: DAILY Status: Active Target: Protocol: Activity Type Activity Date Activity User E-Sign Co-Sign Detail Recorded Client Recorded Date Recorded By Document 03/01/17 01:14 [id number] [id number] 03/01/17 01:16 [id number] 03/01/17 01:14 PMRU Outcome: Coping/Psychosocial Coping Outcome/Goals Verbalization of Acceptance of Rehab Admit Verbalization of Sense of Control Over Health Status Utilization of Appropriate Problem Solving Techniques Willingness to Participate in Treatment Plan and Basic Needs Utilization of Available Support Systems Psychosocial Outcome/Goals Maintain/ Improve Emotional Health Demonstrates Knowledge of Healthy Coping Mechanisms Available Cooperate/ Participate in Plan Progression Toward Outcome/Goals - Progressing Coping Progression Toward Outcome/Goals - Progressing Psychosocial Outcome/Goals Met Comment pt worried about who is not here and driving. Pt called to reassure her. DVT Prophylaxis- Improve/Maintain Start: 02/04/17 10:46 Freq: DAILY Status: Active Target: Protocol: Activity Type Activity Date Activity User E-Sign Co-Sign Detail Recorded Client Recorded Date Recorded By Document 03/01/17 01:14 [id number] [email or web address] 03/01/17 01:16 [id number] 03/01/17 01:14 PMRU Outcome: DVT Prophylaxis Outcome/Goals Remains Free of DVT Complies with DVT Prophylaxis /Treatment Demonstrates Knowledge of DVT Prevention/ Treatment TEDS Stockings on Every AM, Off at HS Other Outcome/Goals rina wraps Progression Toward Outcome/Goals Progressing Discharge Planning - Improve/Maintain Start: 02/04/17 10:46 Freq: DAILY Status: Active Target: Protocol: Activity Type Activity Date Activity User E-Sign Co-Sign Detail Recorded Client Recorded Date Recorded By Document 03/01/17 01:14 [id number] 03/01/17 01:16 [id number] 03/01/17 01:14 PMRU Outcome: Discharge Planning Identify Patient Needs yes Update Patient Family No Outcome/Goals Demonstrates Understanding of Discharge Plan Progression Toward Outcome/Goals Progressing Education-Improve/Maintain Start: 02/04/17 10:46 Freq: DAILY Status: Active Target: Protocol: Activity Type Activity Date Activity User E-Sign Co-Sign Detail Recorded Client Recorded Date Recorded By Document 03/01/17 01:14 [id number] [id number] 03/01/17 01:16 [id number] 03/01/17 01:14 PMRU Outcome: Education Outcome/Goals Encourage Questions Progression Toward Outcome/Goals Progressing /GI-Improve/Maintain Start: 02/04/17 10:46 Freq: DAILY Status: Active Target: Protocol: Activity Type Activity Date Activity User E-Sign Co-Sign Detail Recorded Client Recorded Date Recorded By Document 03/01/17 01:14 [id number] 03/01/17 01:16 [id number] 03/01/17 01:14 PMRU Outcome: Genitourinary/ Gastrointestinal Genitourinary- Outcome/Goals Maintain/ Achieve Urinary Continence Remain Free of Hospital- Acquired UTI Gastrointestinal-Outcome/Goals Maintain/ Achieve Bowel Regularity in Accordance with Pt's Baseline Prevent Constipation Progression Toward Outcome/Goals - Progressing Progression Toward Outcome/Goals - GI Progressing Outcome/Goals Met Comment pt up to BR Medication Administration Start: 02/04/17 10:46 Freq: DAILY Status: Active Target: Protocol: Activity Type Activity Date Activity User E-Sign Co-Sign Detail Recorded Client Recorded Date Recorded By Document 03/01/17 01:14 [id number] 03/01/17 01:16 [id number] 03/01/17 01:14 PMRU Outcome: Medication Administration Assess Patient Knowledge/Teach Med Yes Education for all Meds Outcome/Goals Family/ Caregiver Administer Medications at Home Demonstrates Understanding Progression Towards Outcome/Goals Progressing Is Patient Going Home on Lovenox? No Metabolic Status- Improve/Maintain Start: 02/04/17 10:46 Freq: DAILY Status: Active Target: Protocol: Activity Type Activity Date Activity User E-Sign Co-Sign Detail Recorded Client Recorded Date Recorded By Document 03/01/17 01:14 [id number] 03/01/17 01:16 [id number] 03/01/17 01:14 PMRU Outcome: Metabolic Status Have Fingersticks Been Ordered Yes Fingerstick Order Frequency AC & HS Outcome/Goals Maintain/ Improve Metabolic Status Demonstrate Knowledge of Prevention/ Treatment of Metabolic Imbalances Progression Toward Outcome/Goals Progressing Mobility- Improve/Maintain Start: 02/05/17 18:05 Freq: DAILY Status: Active Target: Protocol: Activity Type Activity Date Activity User E-Sign Co-Sign Detail Recorded Client Recorded Date Recorded By Document 02/28/17 12:32 [id number] 02/28/17 12:32 [id number] 02/28/17 12:32 PMRU Outcome: Mobility Physical Therapy Evaluation and Yes Treatment Activity OOB with Assistance Yes Device Yes Assistance Yes Patient to be seen 5x/wk for 60-120 min/ Therex day for: Mobility Training Gait Training Balance Other Therapy Comment patient is weightbearing through heel of RLE only. Outcome/Goals Maintain/ Achieve Baseline Mobility Status Improve Mobility Status Demonstrates Proper Use of Assistive Devices Free from Complications of Immobility Progression Toward Outcome/Goals Progressing Bed Mobility Yes: independent Transfers Yes: independent with rolling walker Gait x ft Yes: independent with rollingwalker 150' Up/Down Stairs Yes: independent up/ down 5 stairs with 2 rails. Nutrition/Swallowing- Improve/Maintain Start: 02/04/17 10:46 Freq: DAILY Status: Active Target: Protocol: Activity Type Activity Date Activity User E-Sign Co-Sign Detail Recorded Client Recorded Date Recorded By Document 03/01/17 01:14 [id number] 03/01/17 01:16 [id number] 03/01/17 01:14 PMRU Outcome: Nutrition/Swallowing Outcome/Goals Demonstrates Adequate Hydration/ Prevents Dehydration Maintain/ Improve Nutritional Status Progression Toward Outcome/Goals Progressing Respiratory - Improve/Maintain Start: 02/04/17 10:46 Freq: DAILY Status: Complete Target: Protocol: Activity Type Activity Date Activity User E-Sign Co-Sign Detail Recorded Client Recorded Date Recorded By Document 02/17/17 20:00 [id number] 02/17/17 22:03 [id number] 02/17/17 20:00 PMRU Outcome: Respiratory Does Patient Have a Trach No Outcome/Goals Met Maintain/ Improve O2 Sat per MD Order Maintain/ Improve Baseline Respiratory Status Safety- Improve/Maintain Start: 02/04/17 10:46 Freq: DAILY Status: Active Target: Protocol: Activity Type Activity Date Activity User E-Sign Co-Sign Detail Recorded Client Recorded Date Recorded By Document 03/01/17 01:14 [id number] 03/01/17 01:16 [id number] 03/01/17 01:14 PMRU Outcome: Safety Outcome/Goals Remain Free of Injury or Harm Prevent Falls/ Injury Progression Toward Outcome/Goals Progressing Outcome/Goals Met Comment PA in place Skin- Improve/Maintain Start: 02/04/17 10:46 Freq: DAILY Status: Active Target: Protocol: Activity Type Activity Date Activity User E-Sign Co-Sign Detail Recorded Client Recorded Date Recorded By Document 03/01/17 01:14 [id number] 03/01/17 01:16 [id number] 03/01/17 01:14 PMRU Outcome: Skin Skin Risk Level Medium Skin Orders Dressing Change Turn/Position q2hr While in Bed Outcome/Goals Maintain/ Improve Skin Intergrity Maintain/ Improve Wound Status Surgical Incisions Healing Progression Toward Outcome/Goals Progressing Outcome/Goals Met Comment Dressing to right foot fell off - placed new dressing Medicine Note: Length of Stay: 1 day Anticipated Discharge Destination: Home Tentative Discharge Date: 03/02/17 Discharged to: home
[2017-03-01] MEDS: Warfarin TAB(*) 3 MG PO SCH (17:23)
--- NOTE | 2017-03-01 18:15 | PN ---
Progress Note - Progress Note Date of Service: 03/01/17 Note: Karma visited. She was discussed in interdisciplinary team rounds. She is going to be discharged tomorrow. Her glucometer arrived today. Current Medications Acetaminophen (Tylenol Tab*) 650 mg PO Q6H PRN PRN Reason: FEVER/PAIN Last Admin: 02/04/17 06:13 Dose: 650 mg Amiodarone HCl (Cordarone Tab*) 200 mg PO DAILY [facility] Last Admin: 03/01/17 08:52 Dose: 200 mg Aspirin (Aspirin Ec Low Dose*) 81 mg PO DAILY [facility] Last Admin: 03/01/17 08:52 Dose: 81 mg Dextrose (D50w Syringe 50 Ml*) 12.5 gm IV PUSH .FOR FS < 60 - SS PRN PRN Reason: FS < 60 Docusate Sodium (Colace Cap*) 100 mg PO BID PRN PRN Reason: CONSTIPATION Fluoxetine HCl (Prozac Cap*) 20 mg PO DAILY [facility] Last Admin: 03/01/17 08:52 Dose: 20 mg Heparin Sodium (Porcine) (Heparin Flush Picc/Ml/Cvc(*)) 1 ml FLUSH 0900,2100 [facility] PRN Reason: Protocol Last Admin: 03/01/17 08:54 Dose: 1 ml Insulin Glargine (Lantus(*)) 18 units SUBCUT Q24H [facility] Last Admin: 02/28/17 20:12 Dose: 18 units Insulin Human Lispro (Humalog*) 0 - 10 units SUBCUT ACHS [facility] PRN Reason: Protocol Last Admin: 03/01/17 16:53 Dose: Not Given Lactobacillus Rhamnosus (Culturelle*) 1 cap PO DAILY [facility] Last Admin: 03/01/17 08:52 Dose: 1 cap Magnesium Hydroxide (Milk Of Magnesia Liq*) 30 ml PO Q6H PRN PRN Reason: CONSTIPATION Metoprolol Tartrate (Lopressor Tab*) 25 mg PO BID [facility] Last Admin: 03/01/17 08:52 Dose: 25 mg Multi-Ingredient Ointment (Hydrocerin*) 1 applic TOPICAL BID [facility] Last Admin: 03/01/17 09:52 Dose: 1 applic Multivitamins/Minerals (Theragran/Minerals Tab*) 1 tab PO DAILY [facility] Last Admin: 03/01/17 08:52 Dose: 1 tab Nystatin (Nystatin Top Powder*) 1 applic TOPICAL TID [facility] Last Admin: 03/01/17 14:19 Dose: 1 applic Omeprazole (Prilosec Cap*) 20 mg PO 0600 [facility] Last Admin: 03/01/17 06:09 Dose: 20 mg Senna (Senokot Tab*) 2 tab PO BEDTIME PRN PRN Reason: CONSTIPATION Warfarin Sodium (Coumadin Tab(*)) 9 mg PO DAILY@1700 [facility] Last Admin: 03/01/17 17:23 Dose: 9 mg Glucose Results Blood Glucose Monitoring POC Start: 02/03/17 17: 48 Freq: ACHS Status: Active Protocol: Blood Glucose Monitoring POC Glucose Obtained Yes Glucose Result Being Addressed/Treated ( 152 mg/dL) Blood Glucose Method POC Glucose (bedside) Document 02/28/17 20:05 [id number] (Rec: 02/28/17 20:05 [id number] [facility]-M05) Blood Glucose Monitoring POC Glucose Obtained Yes Glucose Result Being Addressed/Treated ( 114 mg/dL) Blood Glucose Method POC Glucose (bedside) Document 03/01/17 07:30 [id number] (Rec: 03/01/17 07:53 [id number] [facility]-M05) Blood Glucose Monitoring POC Glucose Obtained Yes Glucose Result Being Addressed/Treated ( 104 mg/dL) Blood Glucose Method POC Glucose (bedside) Document 03/01/17 12:30 [id number] (Rec: 03/01/17 13:15 [id number] [facility]-C07) Blood Glucose Monitoring POC Glucose Obtained Yes Glucose Result Being Addressed/Treated ( 152 mg/dL) Blood Glucose Method POC Glucose (bedside) Blood Glucose Comments one hour after eating Vital Signs Temp Pulse Resp BP Pulse Ox 98.2 F 54 16 124/46 100 03/01/17 15:56 03/01/17 15:56 03/01/17 15:56 03/01/17 15:56 03/01/17 15:56 EXAM: LUNGS: Clear bilat HEART: reg rhythm ABDOMEN: Soft +BS EXTREMITIES: Right foot wound ok. Slight drainage today ASSESSMENT/PLAN: 1. 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 Taking Prozac. 2. Atrial fibrillation: Amiodarone. Coumadin. Check INR in am 3. Diabetes Mellitus: Lantus 18 units at HS. Lispro SSI. BS better 4. Right foot partial amputation: ortho has looked at wound. Continue WBAT, DSD. A little more drainage. ortho will follow after d/c 5. Sepsis from foot wound/Endocarditis: Ceftriaxone finished 6. DVT Prophylaxis: Coumadin 9 mg 7. Advanced directives: is HCP 8. AVR with aortic root replacement: Will find a local painter foreman for her
--- NOTE | 2017-03-01 20:23 | CONS ---
INPATIENT CONSULTATION REPORT: DATE OF CONSULTATION: 03/01/17 HISTORY OF PRESENT ILLNESS: Karma Mansfield has been an inpatient on the PMRU unit at [facility] since 02/03/17. She is previously seen for osteomyelitis of the great toe and had a removal of the first toe, right forefoot with partial metatarsal excision. She has had slow wound healing and has been noted to have small amount of scant clear serous drainage from the wound mid portion and there has been some concern about some recurrence of infection or persistence of infection. Kamra does not have any pain in her foot. They have been applying alternate Betadine and just plain saline, wet-to-dry dressings with an Catalino wrap and a postop shoe. She has been weightbearing with a walker. PHYSICAL EXAMINATION: On examination, Karma has a very flat affect, but actually somewhat improved over my last visit. She is not noting any pain in the foot. She says she is tired and is willing to walk when they "make me walk. " She is eager to go home and is possibly to be discharged in the near future. The examination of her right foot shows her to have no significant erythema. There is no significant increase in warmth. The wound is healing reasonably well except for a small 2 to 3 mm center area where there is a drop of clear drainage. DIAGNOSTIC STUDIES/LAB DATA: The radiographs performed recently do show what may be some lytic changes in the proximal base of the first metatarsal, this is consistent with some persistence of osteomyelitis and it is my opinion that at some point the patient will require further debridement of the first metatarsal , although at this point she does not appear to have any aggressive signs of sepsis or cellulitis at this zone. This could be performed as an outpatient procedure or even consider an extension of her stay at this point on acute rehab converting her to an inpatient status if we needed to do that before her discharge. [id number]/[facility] #: [id number] CHET
[2017-03-01] MEDS: Insulin GLARGINE(*) 1 UNITS UNIT SUBCUT SCH (20:49)
[2017-03-02] MEDS: Omeprazole CAP* 20 MG PO SCH (06:46)
[2017-03-02 06:55] VITALS: BP 145/59
[2017-03-02 07:30] LABS: INR 2.04 (0.77-1.02)
[2017-03-02] MEDS: Insulin LISPRO* 1 UNITS UNIT SUBCUT SCH ×2 (07:54→12:11)
[2017-03-02] MEDS: Multivitamins/Minerals TAB PO SCH (08:09)
[2017-03-02] MEDS: FLUoxetine CAP* 20 MG PO SCH (08:09)
[2017-03-02] MEDS: Aspirin EC Low Dose* 81 MG TAB.EC PO SCH (08:09)
[2017-03-02] MEDS: Amiodarone TAB* 200 MG PO SCH (08:09)
[2017-03-02] MEDS: Lactobacillus Acidophilu (GG)* 1 CAP CAP PO SCH (08:09)
[2017-03-02] MEDS: Metoprolol Tartrate TAB* 25 MG PO SCH (08:09)
[2017-03-02] MEDS: Moisturizing CREAM* 120 GM JAR TOPICAL SCH (08:10)
[2017-03-02] MEDS: Nystatin TOP POWDER* 15 GM BTL TOPICAL SCH (08:10)
--- NOTE | 2017-03-04 22:28 | DS ---
CC: Dr. Murphy * DISCHARGE SUMMARY: DATE OF ADMISSION: 02/03/17 DATE OF DISCHARGE: 03/02/17 DISCHARGE DIAGNOSES: 1. Bilateral cerebrovascular accidents. 2. Endocarditis. 3. Septic shock. 4. Status post aortic valve replacement and aortic root replacement. 5. Atrial fibrillation. 6. Osteomyelitis, right foot. 7. Diabetes mellitus. 8. Obstructive sleep apnea. 9. Peripheral vascular disease. 10. Hypertension. HISTORY OF ILLNESS AND HOSPITAL COURSE: For complete history of the events leading up to her rehab stay, please see the history and physical dictated by me on 02/03/17. While on the rehab unit, the patient completed her course of IV antibiotics for endocarditis. She received IV ceftriaxone through 02/24/17. After she completed her course, her PICC line was subsequently discontinued. The patient was started on Prozac in an attempt to improve neuronal recovery as well as her overall outlook. The patient's insulin was controlled with Lantus insulin. She had been started on metformin at the [facility], but had acute kidney injury with her BUN and creatinine rising and her metformin was subsequently discontinued. The patient was seen in consultation with Dr. Abel Lucero, who did her original foot surgery. He felt that she could be weightbearing as tolerated. Her [employer] dressings to right foot wound were stopped. Her wound looked good. The patient was seen again by Dr. Lucero prior to discharge. He felt her x-ray may have shown some osteomyelitis. He felt given her overall health that it was best to continue watching this in the short term. The patient was continued on amiodarone and Coumadin for her atrial fibrillation. She seemed to be in a largely regular rhythm while on the rehab unit. The patient was otherwise medically stable. She was seen by Physical Therapy, Occupational Therapy and Speech Therapy while on the rehab unit. She did make gains with all disciplines. With physical therapy at the time of admission, the patient required total assistance for transfer. She was using Easy-Stand. She was unable to ambulate. With occupational therapy, she was mod assist for upper body dressing, max assist for lower body dressing. Total assist for toileting, total assist for toilet transfers. By the time of discharge, the patient was transferring with supervision, ambulating with supervision, 150 feet doing toilet transfers with supervision, did require minimal amount of assistance for hygiene. The patient required assistance because of the visual changes which occurred as the result of her stroke. They will need ongoing visual therapy after discharge. The patient was also seen by Speech Therapy. She was felt to have some memory problems, which did not improve during the rehab stay. Her visual difficulties did not improve. It was felt that she had functional language skills and did not require speech therapy and she was discharged from speech, 02/11/17. Family training was done prior to discharge. Family training included, but was not limited to both functional abilities as well as fingersticks and insulin administration. The patient was discharged to home on 03/02/17. DISCHARGE DIET: Consistent carbohydrate. DISCHARGE MEDICATIONS: 1. Amiodarone 200 mg daily. 2. Aspirin 81 mg daily. 3. Prozac 20 mg daily. 4. Lantus insulin 18 units at bedtime. 5. Lopressor 25 mg twice daily. 6. Omeprazole 20 mg daily. 7. Coumadin 9 mg daily or as directed. SERVICES AFTER DISCHARGE: Through [facility]. She will have home nursing, home physical therapy, and home occupational therapy. She will also see Dr. Salomón Arias, printing press machine operator for visual therapy. She will see Dr. Marly Lorenzo in followup as a front end drupal developer as well as Dr. Abel Lucero for her foot and Dr. Murphy will be her new primary care doctor. [id number]/[facility] #: [id number] MTDD
== END 2017-03-02 12:45 | disposition home or self-care (01) | DRG 949 ==
LOC: PMRU 15:20
PROVIDERS: ADMIT Physical Medicine & Rehabilitation; ATTEND Physical Medicine & Rehabilitation
PROC: F07Z5ZZ Bed Mobility Treatment (ICD-10-PCS; principal; 2017-02-03)
PROC: F07Z9ZZ Gait Training/Functional Ambulation Treatment (ICD-10-PCS; 2017-02-03)
PROC: F07Z8ZZ Transfer Training Treatment (ICD-10-PCS; 2017-02-03)
PROC: F08Z0ZZ Bathing/Showering Techniques Treatment (ICD-10-PCS; 2017-02-03)
PROC: F08Z1ZZ Dressing Techniques Treatment (ICD-10-PCS; 2017-02-03)
PROC: F08Z3ZZ Feeding/Eating Treatment (ICD-10-PCS; 2017-02-03)
PROC: F06Z6ZZ Communicative/Cognitive Integration Skills Treatment (ICD-10-PCS; 2017-02-03)
DX: Z48.812 Encounter for surgical aftercare following surgery on the circulatory system (principal); A41.9 Sepsis, unspecified organism; N17.9 Acute kidney failure, unspecified; K52.1 Toxic gastroenteritis and colitis; E11.69 Type 2 diabetes mellitus with other specified complication; E66.01 Morbid (severe) obesity due to excess calories; I38 Endocarditis, valve unspecified; I48.0 Paroxysmal atrial fibrillation; B37.2 Candidiasis of skin and nail; I69.351 Hemiplegia and hemiparesis following cerebral infarction affecting right dominant side; Z68.42 Body mass index [BMI] 45.0-49.9, adult; J98.11 Atelectasis; M86.9 Osteomyelitis, unspecified; Z47.81 Encounter for orthopedic aftercare following surgical amputation; F41.8 Other specified anxiety disorders; I10 Essential (primary) hypertension; G47.33 Obstructive sleep apnea (adult) (pediatric); Z79.4 Long term (current) use of insulin; Z79.01 Long term (current) use of anticoagulants; Z79.84 Long term (current) use of oral hypoglycemic drugs; Z79.82 Long term (current) use of aspirin; Z79.899 Other long term (current) drug therapy; Z87.891 Personal history of nicotine dependence; T36.95XD Adverse effect of unspecified systemic antibiotic, subsequent encounter; Z89.411 Acquired absence of right great toe; H54.7 Unspecified visual loss; R07.9 Chest pain, unspecified; M54.89 Other dorsalgia; F09 Unspecified mental disorder due to known physiological condition; Z83.3 Family history of diabetes mellitus; Z82.49 Family history of ischemic heart disease and other diseases of the circulatory system
CPT/HCPCS: 36415; 71020; 80048; 80053; 85025; 85610; 93005; A9270-GY; J0696; J1644

== ENCOUNTER 2019-02-10 14:13 | Inpatient (IN) | payer OTHER ==
--- OUTSIDE RECORDS SUMMARY | 2019-02-10 14:28 | XMS REPORT | Continuity of Care Document ---
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 Onset: 2014 Uterine leiomyoma Francisco Beyer M.D. Onset: 03/25/2014 Anemia due to chronic blood loss Francisco Beyer M.D. Onset: 03/25/2014 Acute posthemorrhagic anemia Francisco Beyer M.D. Onset: 03/25/2014 Obesity Francisco Beyer M.D. Onset: 03/25/2014 Morbid obesity Francisco Beyer M.D. Onset: 03/25/2014 Tobacco user Francisco Beyer M.D. Onset: 03/25/2014 Type 2 diabetes mellitus with ulcer Fredy Duarte M.D. Onset: 07/26/2016 Social History Type Date Description Comments Sex Unknown ETOH Use Denies alcohol use Recreational Drug Use Denies Drug Use Tobacco Use Start: Unknown End: Patient is a former smoked since age 15 Unknown smoker and quit in Nov 2016 Smoking Status Reviewed: 01/22/19 Patient is a former smoked since age 15 smoker and quit in Nov 2016 Exercise Type/Frequency Does not exercise Allergies, Adverse Reactions, Alerts Description No Known Drug Allergies Medications Active Medications SIG Qnty Indications Ordering Date Provider Xultophy start 20 units 15ml E11.65 Cristhian Kiser MD 11/08/2018 one daily, 100-3.6Unit-mg/ML increase by 2 Solution Pen-Inject units every 2 days until morning blood glucose is less than 150, mdd 50 Metformin HCL ER 1 tablet by 30tabs E11.65 Cristhian Kiser MD 11/08/2018 750mg mouth every day Tablets ER 24HR at bedtime Atorvastatin Calcium 1 by mouth every 90tabs E78.5 Chris Morin, 2017 day DO FACC 20mg Tablets Xarelto 1 by mouth every 90tabs Chris Morin, 08/31/2017 15mg Tablets day DO FACC One Touch Test Strips Test blood 100units E11.69 Dana Palma, 08/09/2016 glucose everyy N.P. morning fasting and 2 hours after meals Onetouch Ultra Blue test in the 50units E11.69 Cristhian Kiser MD 08/09/2016 morning or as Strips needed BD Pen use with insulin 120units Dana Palma, 08/09/2016 Needle/Short/Ultrafin daily N.P. e/31G X 5/16" 31G X 8 mm Misc Metoprolol Succinate 1 by mouth every 30tabs Unknown ER day 25mg Tablets ER 24HR Fluoxetine HCL 1 by mouth every Unknown 20mg day Capsules Vitamin D3 1 by mouth every Unknown 2000Unit day Capsules Immunizations Description No Information Available Vital Signs Date Vital Result Comment 01/22/2019 2:19pm Height 69 inches 5'9" Weight 356.00 lb with shoes Heart Rate 78 /min BP Systolic Sitting 146 mmHg Rue large cuff BP Diastolic Sitting 80 mmHg Rue large cuff Respiratory Rate 15 /min BMI (Body Mass Index) 52.6 kg/m2 Ejection Fraction 50-55% ECHO 05/04/2017 11/08/2018 10:13am Height 69 inches 5'9" Heart Rate 70 /min BP Systolic Sitting 128 mmHg BP Diastolic Sitting 74 mmHg Results Description No Information Available Procedures Date Code Description Status 01/22/2019 21867 EKG Tracing & Interpretation Completed 03/25/2014 173941012 Diabetic Retinal Eye Exam Completed 03/25/2014 [id number] Mammogram Completed Medical Devices Description No Information Available Encounters Type Date Location Provider Dx Diagnosis Office Visit 11/08/2018 [facility] and Cristhian Kiser MD E11.65 Type 2 diabetes 10:00a [facility] [place] mellitus with hyperglycemia Z79.4 retirement (current) use of insulin Assessments Date Code Description Provider 01/22/2019 I48.0 Paroxysmal atrial fibrillation Chris Morin, DO [facility] 01/22/2019 I63.9 Cerebral infarction, unspecified Chris Morin, DO [facility] 01/22/2019 Z95.2 Presence of prosthetic heart valve Chris Morin DO [facility] 01/22/2019 E78.5 Hyperlipidemia, unspecified Chris Morin, DO [facility] 01/22/2019 E11.8 Type 2 diabetes mellitus with unspecified Chris Morin, DO [facility] complications 11/08/2018 E11.65 Type 2 diabetes mellitus with Cristhian Kiser MD hyperglycemia 11/08/2018 Z79.4 retirement (current) use of insulin Cristhian Kiser MD Plan of Treatment 01/22/2019 - Chris Morin DO FACCI48.0 Paroxysmal atrial fibrillationFollow up:1 yearI63.9 Cerebral infarction, ejirpfknaglY55.2 Presence of prosthetic heart [id number] Hyperlipidemia, [id number] Type 2 diabetes mellitus with unspecified complications Functional Status Description No Information Available Mental Status Description No Information Available Referrals Description No Information Available
[2019-02-10] MEDS ORDERED: Vancomycin(*) 1,000 MG VIAL IVPB SCH (16:35)
[2019-02-10] MEDS ORDERED: NS 0.9% 1000 ML** 1,000 ML IV ONE (16:37)
[2019-02-10] MEDS ORDERED: cefTRIAXone(*) 2 GM in NS 0.9% 100 ML* 100 ML IVPB ONE (16:37)
[2019-02-10] MEDS ORDERED: Vancomycin(*) 2,000 MG in NS 0.9% 500 ML* 500 ML IVPB ONE (17:00)
--- NOTE | 2019-02-10 17:13 | ED ---
Lower Extremity - HPI Summary HPI Summary: This patient is a 53-year-old female presenting to the ED with left lateral foot ulceration. Patient states she is unsure when the area started, however she just noticed it today. She also has endorsing a foul smell to the area. She denies any drainage from the area. She endorses a large black area over the left lateral portion of the foot near the little toe. She does have a history of osteomyelitis, type 2 diabetes and right toe amputation. Patient states she is unsure which medications she takes and is unsure of the physician to completed her right eye dictation. She did follow up with Dr. Mabry several times for her osteomyelitis. Pt states she did not feel the area and it does not hurt as she has diabetic neuropathy. Patient is ambulatory and walks with a cane, however she states she is fairly bedbound otherwise and does not ambulate much. is relish maker. She denies any recent illness including fever, sweats, chills, cough, congestion, shortness of breath, chest pain, abd pain, N/V/C/D. 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 Negative: Swelling, Redness, Bruising, Weakness - Risk Factors Gout Risk Factors: Diabetes - Allergies/Home Medications Allergies/Adverse Reactions: Allergies Allergy/AdvReac Type Severity Reaction Status Date / Time No Known Allergies Allergy Verified 02/10/19 14:18 PMH/Surg Hx/FS Hx/Imm Hx Previously Healthy: No - diabetic Endocrine/Hematology History: Reports: Hx Diabetes, Hx Anemia Denies: Hx Thyroid Disease Cardiovascular History: Reports: Hx Hypertension, Other Cardiovascular Problems/ Disorders - endocarditis Denies: Hx Pacemaker/ICD Respiratory History: Denies: Hx Asthma, Hx Chronic Obstructive Pulmonary Disease (COPD) GI History: Reports: Hx Hiatal Hernia, Hx Obstructive Bowel, Other GI Disorders - Gall bladder removal, hernia repair Denies: Hx Cirrhosis, Hx Crohn's Disease, Hx Gastroesophageal Reflux Disease , Hx Ulcer History: Denies: Hx Dialysis, Hx Renal Disease Musculoskeletal History: Reports: Hx Back Problems Denies: Hx Arthritis, Hx Osteoporosis Sensory History: Reports: Hx Contacts or Glasses Denies: Hx Cataracts, Hx Glaucoma, Hx Hearing Aid Opthamlomology History: Reports: Hx Contacts or Glasses Denies: Hx Cataracts, Hx Glaucoma Neurological History: Reports: Other Neuro Impairments/Disorders - occassional tingling to bottom of feet Psychiatric History: Denies: Hx Panic Disorder - Surgical History Surgery Procedure, Year, and Place: [place] bladder [place] [facility] [place] ~2008 , [facility] [place]. Right rotator cuff repair 2010, [facility] [place]. Fibroid removal, 2012, [facility] [place]. MAR 2014 HYSTERECTOMY. Jan 2017 Aortic Valve replacement/ amputation of right toe Hx Anesthesia Reactions: No - Immunization History Hx Pertussis Vaccination: No Immunizations Up to Date: Yes Infectious Disease History: No Infectious Disease History: Denies: Hx Clostridium Difficile, Hx Hepatitis, Hx Human Immunodeficiency Virus (HIV), Hx of Known/Suspected MRSA, Hx Shingles, Hx Tuberculosis, Traveled Outside the in Last 30 Days - Family History Known Family History: Positive: Unknown, Cardiac Disease, Hypertension, Diabetes - Social History Occupation: Unemployed Lives: With Family Alcohol Use: None Hx Substance Use: No Substance Use Type: Reports: None Substance Use Comment - Amount & Last Used: 3 pepsi a day Hx Tobacco Use: No Smoking Status (MU): Former Smoker Type: Cigarettes Amount Used/How Often: 1 pack/day Length of Time of Smoking/Using Tobacco: SMOKED 30+ YEARS; Have You Smoked in the Last Year: Yes Review of Systems Negative: Fever, Chills, Fatigue, Skin Diaphoresis Negative: Palpitations, Chest Pain Negative: Shortness Of Breath, Cough Positive: no symptoms reported, see HPI Negative: Arthralgia, Myalgia Positive: Other - black eschar to the L lateral foot near small toe - no drainage, surrounding erythema Neurological: Negative All Other Systems Reviewed And Are Negative: Yes Physical Exam Triage Information Reviewed: Yes Vital Signs On Initial Exam: Initial Vitals Temp Pulse Resp BP Pulse Ox 98.2 F 82 16 167/85 96 02/10/19 14:16 02/10/19 14:16 02/10/19 14:16 02/10/19 14:16 02/10/19 14:16 Vital Signs Reviewed: Yes Appearance: Positive: Well-Appearing, Well-Nourished, Obese Skin: Positive: Warm, Skin Color Reflects Adequate Perfusion, Other - large black area measuring 2.5cm to the L lateral foot near small toe with surrounding erythema Neck: Positive: Supple, No Lymphadenopathy Respiratory/Lung Sounds: Positive: Clear to Auscultation Abdomen Description: Positive: Nontender Neurological: Positive: Sensory/Motor Intact Psychiatric: Positive: Normal, Affect/Mood Appropriate Procedures - Sedation Patient Received Moderate/Deep Sedation with Procedure: No Diagnostics - Vital Signs Vital Signs Temp Pulse Resp BP Pulse Ox 02/10/19 14:16 98.2 F 82 16 167/85 96 - Laboratory Result Diagrams: 02/10/19 17:00 02/10/19 17:00 Lab Statement: Any lab studies that have been ordered have been reviewed, and results considered in the medical decision making process. Lower Extremity Course/Dx - Course Course Of Treatment: During this course of treatment, the patient is evaluated for osteomyelitis of the left foot and little toe. X-ray obtained which shows: IMPRESSION: FINDINGS MOST CONSISTENT WITH OSTEOMYELITIS INVOLVING THE DISTAL FIFTH METATARSAL AND POSSIBLY THE FIFTH PROXIMAL PHALANX. THIS COULD BE FURTHER DEFINED WITH MR IMAGING WITHOUT CONTRAST NEEDED. Dr. Rogers consulted and recommending admit to hospitalist service. At this time, labs are obtained, IV ordered and vanco and ceftriaxone ordered. These pending as pt is a difficult stick. - Diagnoses Differential Diagnosis/HQI/PQRI: Positive: Cellulitis, Infection, Osteomyelitis Provider Diagnoses: Osteomyelitis - Physician Notifications Discussed Care Of Patient With: Della Rogers Instructed by Provider To: Admit As Inpatient Discharge ED - Sign-Out/Discharge Documenting (check all that apply): Patient Departure - Discharge Plan Condition: Fair Disposition: ADMITTED TO [facility] - Billing Disposition and Condition Condition: FAIR Disposition: Admitted to [facility] - Attestation Statements Provider Attestation: I have seen the patient with the BAN and agree with the plan and documentation below James Rothman MD
[2019-02-10 17:15] LABS: ABS Eosinophils 0.2 10^3/ul (0-0.6); ABS Lymphocytes 1.1 10^3/ul (1.0-4.8); ABS Monocytes 0.6 10^3/ul (0-0.8); ABS Neutrophils 5.5 10^3/ul (1.5-7.7); Eosinophil % 2.6 %; Hematocrit 39 % (35-47); Hemoglobin 12.5 g/dL (12.0-16.0); Lymphocyte % 15.4 %; Mean Corpuscular HGB Conc 32 g/dL (31-36); Mean Corpuscular Hemoglobin 27 pg (27-31); Mean Corpuscular Volume 82 fL (80-97); Mean Platelet Volume 8.3 fL (7.4-10.4); Platelet Count 335 10^3/uL (150-450); Red Cell Distribution Width 14 % (10-15); White Blood Count 7.4 10^3/uL (3.5-10.8)
[2019-02-10] MEDS ORDERED: Ondansetron INJ* 2 MG/ML VIAL IV PRN (17:23)
[2019-02-10 17:26] LABS: Albumin 3.5 g/dL (3.2-5.2); Albumin/Globulin Ratio 0.9 (1-3); BUN/Creatinine Ratio 15.5 (8-20); C Reactive Protein 28.96 mg/L (<8.01); Calcium 9.6 mg/dL (8.6-10.3); EGFR African American 44.6 (>60); EGFR Non-African American 36.9 (>60); Globulin 4.1 g/dL (2-4); Potassium 4.2 mmol/L (3.5-5.0); Total Bilirubin 0.4 mg/dL (0.2-1.0); Total Protein 7.6 g/dL (6.4-8.9)
[2019-02-10] MEDS ORDERED: Dextrose 50% VIAL 50 ml IV PUSH PRN (17:32)
[2019-02-10] MEDS ORDERED: Vancomycin per Pharmacy* NOTE FOLLOW UP SCH (18:00)
--- NOTE | 2019-02-10 19:57 | HP ---
CC: Dr. Matthew Murphy; Dr. Chris Morin; Dr. Mounika Tafoya* ADMISSION HISTORY AND PHYSICAL: DATE OF ADMISSION: 02/10/19 PRIMARY CARE PROVIDER: Dr. Matthew Murphy. OUTPATIENT GRAVEL WEIGHER: Dr. Chris Morin. MY ATTENDING WHILE IN THE HOSPITAL: Dr. Mounika Tafoya* (dictated by DAT Glass). CHIEF COMPLAINT: Newly discovered ulcer on the left foot. HISTORY OF PRESENT ILLNESS: Ms. Mansfield is a 53-year-old female with past medical history significant for osteomyelitis of the right foot complicated by bacterial endocarditis, status post aortic valve replacement, as well as high blood pressure and obstructive sleep apnea, who presents to the emergency department after today she noticed a large ulcer on the left side of her foot. She has neuropathy and has no pain from it. She states that last week she felt poorly, but this week she is feeling okay again. Even though the ulcer is large , she states she really had no idea it was there and she does try to keep pressure off her foot, but does not get out of bed very much. She mainly walks to the bathroom and back in her trailer as her only exercise unless she is walking across the trailer to the kitchen. The patient denies fevers or chills , nausea, vomiting, abdominal pain or diarrhea. The patient has not had any trauma to that foot. Again, attempts to relieve pressure on that foot with special orthotic shoes. The patient has not had any cardiac symptoms including palpitations or shortness of breath. The patient has not been checking her blood sugar at home as she leaves this up to her and he does not like poking her as she does not like it at all. The patient is very unaware of her medical situations and feels very unmotivated at this point. In the emergency department, the patient had a foot x-ray, which showed signs concerning for osteomyelitis in her foot and we were asked to evaluate the patient for admission to the hospital. 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 PAST SURGICAL HISTORY: Aortic valve replacement, right first ray amputation, rotator cuff repair, hysterectomy, cholecystectomy, hernia repair. MEDICATIONS: 1. Xultophy 25 units subcutaneous daily. 2. Metoprolol succinate 25 mg p.o. twice daily. 3. Atorvastatin 20 mg p.o. daily. 4. Vitamin D3 1000 units p.o. daily. 5. Fluoxetine 20 mg p.o. daily. 6. Xarelto 15 mg p.o. daily. ALLERGIES: No known drug allergies. FAMILY HISTORY: The patient's mother had diabetes and coronary artery disease. The patient's father had hypertension. The patient has no siblings. SOCIAL HISTORY: The patient smoked for all of her adult life socially up until 2 years ago. The patient denies alcohol abuse or illicit drug use. 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 The patient is and has 5 children whom she lives with. The patient's surrogate decision maker will be her , Chaz. The patient would like to be a full code. REVIEW OF SYSTEMS: A 14-point review of systems was reviewed and is negative except as above in the HPI and notable for 80-pound weight gain in the last year. PHYSICAL EXAMINATION GENERAL: The patient is a 53-year-old female, who appears stated age and sitting comfortably in bed, in no acute distress. HEENT: Head: Normocephalic, atraumatic. Sclerae anicteric. No conjunctival injection. Nasal mucosa moist. Oral mucosa moist. No pharyngeal erythema, discharge, or exudate. NECK: Supple, nontender. No lymphadenopathy. No carotid bruits auscultated. No JVD. RESPIRATORY: Clear to auscultation bilaterally. No wheezes, rales, or rhonchi. Good air exchange bilaterally. CARDIAC: Regular rate and rhythm. No clicks, murmurs, gallops, or rubs. Pulses are 2+ in the bilateral dorsalis pedis, posterior tibialis, and radial areas. ABDOMEN: Soft, nontender, nondistended. Bowel sounds present and normoactive in all 4 quadrants. No hepatosplenomegaly. No abdominal bruits auscultated. No hepatojugular reflux. GENITOURINARY: No suprapubic or CVA tenderness. NEURO: Cranial nerves II through XII intact. Peripheral neuropathy. Otherwise , no focal deficits. Alert and oriented x3. PSYCHIATRIC: Pleasant and cooperative. Somewhat flat affect. SKIN: Large ulcer over the bony prominence of the left fifth metatarsal head with necrotic area and anaerobic smell. Right fifth toe surgically absent. No rashes. DIAGNOSTIC STUDIES/LAB DATA: White blood cell count 7.4, hemoglobin 12.5, platelet count 335. Sodium 140, potassium 4.2, chloride 103, carbon dioxide 28 , anion gap 9, BUN 23, creatinine 1.48, glucose 220, lactic acid 1.8, calcium 9.6. Bilirubin 0.4, AST 20, ALT 13, alkaline phosphatase 111. CRP 28.96. Protein 7.6, albumin 3.5, globulin 4.1. Studies: Foot x-ray read as findings most consistent with osteomyelitis involving the distal fifth metatarsal and possibly the fifth proximal phalanx. This could be further defined with MR imaging without contrast as needed. ASSESSMENT AND PLAN: Impression: Ms. Mansfield is a 53-year-old female with past medical history significant for morbid obesity, diabetes mellitus type 2, osteomyelitis of the right foot complicated by endocarditis requiring aortic valve replacement, who presents to the emergency department with a newly discovered necrotic ulcer on her left foot. The patient will be admitted to the hospital for wound care, orthopedic consultation, possible amputation, as well as antibiotics. 1. Diabetic foot ulcer left foot with associated osteomyelitis. The patient will be started on broad-spectrum antibiotics with vancomycin, cefepime, and Zosyn. The patient's case has already been discussed with Dr. Della Rogers of Orthopedics by the emergency department provider and Orthopedics will see the patient in consultation. The patient will likely need surgical debridement and may need amputation. The patient will have blood cultures and wound culture to help narrow antibiotics. The patient does not have any signs of systemic symptoms or white count. The patient is not septic at this time. Fluids are not indicated. The patient will have Wound Care consult. The patient has good vascular flow to the area. The patient's wound healing will be improved by blood glucose management. 2. Diabetes mellitus type 2. 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 This will be repeated now as her most recent one was 6.5 on . The patient's Xultophy will not be available while in the hospital. The patient will be started on Lantus, insulin sliding scale and will be continued on her metformin. The patient's disease is complicated by neuropathy , retinopathy, and nephropathy. The patient's creatinine is at baseline. 3. Chronic kidney disease due to diabetes as above. 4. Paroxysmal atrial fibrillation. The patient appears to be in sinus rhythm on exam. Continue the patient's Xarelto. 5. History of endocarditis with aortic valve replacement. Check blood cultures as above. If blood cultures are positive, further investigation of the patient's valve with transthoracic echocardiogram or possible transesophageal echocardiogram would be indicated. 6. Hypertension. Continue the patient's metoprolol. The patient is currently hypertensive. This will be evaluated in an ongoing fashion. 7. Obstructive sleep apnea. The patient is noncompliant with mask. This needs to be followed up outpatient. 8. DVT prophylaxis: Xarelto. 9. FEN: Consistent carbohydrate, heart-healthy diet. 10. Disposition: The patient is admitted inpatient to the hospital with estimated length of stay greater than 2 midnights. 11. Code status: The patient would like to be a full code. TIME SPENT: Approximately 60 minutes was spent on the admission of this patient , 30 of which was spent [id number] with the patient obtaining history and physical and discussing treatment plan. This plan was discussed with my attending, Dr. Mounika Tafoya, and she is in agreement. DAT GLASS [id number]/[facility] #: [id number] MTDCarmen
[2019-02-10] MEDS: Insulin GLARGINE(*) 1 UNITS UNIT SUBCUT SCH (21:05)
[2019-02-10] MEDS: Metoprolol Succinate XL TAB* 25 MG PO SCH (21:06)
[2019-02-10] MEDS: Cefepime 1 GM in Dextrose(*) 1 GM/50 ML BAG IV SCH (21:06)
[2019-02-10] MEDS: metroNIDAZOLE IV 500 MG/100ML* 500 MG/100 ML BAG IVPB SCH (22:36)
[2019-02-11] MEDS: metroNIDAZOLE IV 500 MG/100ML* 500 MG/100 ML BAG IVPB SCH ×4 (04:16→22:40)
[2019-02-11] MEDS ORDERED: Vancomycin(*) 1,500 MG in NS 0.9% 250 ML* 250 ML IVPB SCH (06:00)
[2019-02-11 06:29] LABS: ABS Basophils 0.1 10^3/ul (0-0.2); ABS Eosinophils 0.2 10^3/ul (0-0.6); ABS Lymphocytes 1.2 10^3/ul (1.0-4.8); ABS Monocytes 0.6 10^3/ul (0-0.8); ABS Neutrophils 4.7 10^3/ul (1.5-7.7); Eosinophil % 2.6 %; Hematocrit 34 % (35-47); Hemoglobin 11.1 g/dL (12.0-16.0); Lymphocyte % 17.9 %; Mean Corpuscular HGB Conc 33 g/dL (31-36); Mean Corpuscular Hemoglobin 26 pg (27-31); Mean Corpuscular Volume 80 fL (80-97); Platelet Count 300 10^3/uL (150-450); Red Blood Count 4.22 10^6 /uL (3.70-4.87); Red Cell Distribution Width 14 % (10-15); White Blood Count 6.8 10^3/uL (3.5-10.8)
--- NOTE | 2019-02-11 08:59 | CONS ---
CC: Dr. Rogers CONSULTATION REPORT: DATE OF CONSULT: 02/10/19 CHIEF COMPLAINT: Left foot pain. HISTORY OF PRESENT ILLNESS: Karma is a 53-year-old diabetic, poorly controlled and obese, who has a history of osteomyelitis in her right foot causing amputation of her small toe. She has been having a little bit of trouble with the left foot recently, but has neuropathy and no pain. She said that t he day before admission, her friend noticed that her distal aspect of her left little toe and foot we re black. She has not had any drainage. PHYSICAL EXAMINATION: On physical exam, she is an obese woman, in minimal distress at rest. On exam of her left foot, there is a large [id number] diameter eschar on the lateral aspect of the foot . There is some surrounding erythema and tenderness, but the patient does not have sensation to ligh t touch in her foot. I reviewed her x-ray AP, lateral, oblique of the left foot, which shows osteomyelitis of the distal h casey of the fifth metatarsal and possibly the head of the fourth metatarsal as well. This corresponds to the area necrosis on examination of her foot. IMPRESSION: Osteomyelitis of the left foot secondary to diabetes and neuropathy. PLAN: The patient will have an MRI to evaluate the extent of the osteomyelitis. She is admitted by t hospitalist. Dr. Lucero will consult on Tuesday and after visualizing the MRI decide on the surgic al treatment. [id number]/[facility] #: [id number]
[2019-02-11] MEDS: Insulin LISPRO* 1 UNITS UNIT SUBCUT SCH ×3 (09:40→17:11)
[2019-02-11] MEDS: Cefepime 1 GM in Dextrose(*) 1 GM/50 ML BAG IV SCH ×2 (09:40→21:49)
[2019-02-11] MEDS: Rivaroxaban TAB(*) 15 MG PO SCH (09:41)
[2019-02-11] MEDS: Cholecalciferol TAB* 1000 UNITS PO SCH (09:41)
[2019-02-11] MEDS: FLUoxetine CAP* 20 MG PO SCH (09:41)
[2019-02-11] MEDS: Metoprolol Succinate XL TAB* 25 MG PO SCH ×2 (09:41→21:53)
[2019-02-11 11:52] LABS: BUN/Creatinine Ratio 16.1 (8-20); Calcium 8.8 mg/dL (8.6-10.3); EGFR African American 54.7 (>60); EGFR Non-African American 45.2 (>60); Magnesium 1.6 mg/dL (1.9-2.7); Potassium 4.1 mmol/L (3.5-5.0)
[2019-02-11] MEDS ORDERED: Polyethylene Glycol 3350* 17 GM PACKET PO PRN (13:22)
[2019-02-11] MEDS ORDERED: Senna TAB 8.6 mg* TAB PO PRN (13:22)
[2019-02-11] MEDS ORDERED: Magnesium Hydroxide LIQ* 30 ML UDC PO PRN (13:22)
--- NOTE | 2019-02-11 14:13 | PN ---
Subjective Date of Service: 02/11/19 Interval History: Patient is feeling well today. Patient had no pain in her foot. Patient denies F /C, N/V, abdominal pain, diarrhea, CP, SOB. Patient has not ambulated. Family History: Unchanged from Admission Social History: Unchanged from Admission Past Medical History: Unchanged from Admission Objective Active Medications: Acetaminophen (Tylenol Tab*) 650 mg PO Q6H PRN PRN Reason: MILD PAIN or TEMP > 100.4 Cholecalciferol (Vitamin D Tab*) 1,000 units PO DAILY [facility] Last Admin: 02/11/19 09:41 Dose: 1,000 units Dextrose (Dextrose 50% Vial 50 Ml*) 25 ml IV PUSH .FOR FS < 60 - SS PRN PRN Reason: FS < 60 Fluoxetine HCl (Prozac Cap*) 20 mg PO DAILY [facility] Last Admin: 02/11/19 09:41 Dose: 20 mg Cefepime HCl (Maxipime 1 Gm In Dextrose Duplex (*)) 1 gm in 50 mls @ 100 mls/ hr IV Q12HR [facility] Last Admin: 02/11/19 09:40 Dose: 100 mls/hr Metronidazole/Sodium Chloride (Flagyl 500 Mg Ivpb*) 500 mg in 100 mls @ 100 mls /hr IVPB Q6H [facility] Last Admin: 02/11/19 10:21 Dose: 100 mls/hr Insulin Glargine (Lantus(*)) 25 units SUBCUT Q24H [facility] Last Admin: 02/10/19 21:05 Dose: 25 unit Insulin Human Lispro (Humalog*) 0 units SUBCUT [facility]; Protocol Last Admin: 02/11/19 12:54 Dose: 6 units Magnesium Hydroxide (Milk Of Magnesia Liq*) 30 ml PO BID PRN PRN Reason: CONSTIPATION Metformin HCl (Glucophage*) 500 mg PO BID [facility] Metoprolol Succinate (Toprol Xl Tab*) 25 mg PO BID [facility] Last Admin: 02/11/19 09:41 Dose: 25 mg Ondansetron HCl (Zofran Inj*) 4 mg IV Q6H PRN PRN Reason: NAUSEA Polyethylene Glycol/Electrolytes (Miralax*) 17 gm PO DAILY PRN PRN Reason: CONSTIPATION Rivaroxaban (Xarelto(*)) 15 mg PO DAILY [facility] Last Admin: 02/11/19 09:41 Dose: 15 mg Senna (Senokot 8.6 Mg Tab*) 1 tab PO DAILY PRN PRN Reason: CONSTIPATION Vital Signs - 8 hr 02/11/19 02/11/19 02/11/19 07:15 08:00 11:15 Temperature 98.0 F 98.2 F Pulse Rate 80 71 Respiratory 18 18 18 Rate Blood Pressure 134/67 137/54 (mmHg) O2 Sat by Pulse 95 100 Oximetry Oxygen Devices in Use Now: None Appearance: Patient is a 53yo female who appears stated age, is morbidly obese, and is sitting in the bed in [facility]. Eyes: No Scleral Icterus, PERRLA Ears/Nose/Mouth/Throat: NL Teeth, Lips, Gums, Clear Oropharnyx, Mucous Membranes Moist Neck: NL Appearance and Movements; NL JVP, Trachea Midline Respiratory: Symmetrical Chest Expansion and Respiratory Effort, Clear to Auscultation Cardiovascular: NL Sounds; No Murmurs; No JVD, RRR, No Edema Abdominal: NL Sounds; No Tenderness; No Distention, No Hepatosplenomegaly Lymphatic: No Cervical Adenopathy Extremities: No Clubbing, Cyanosis, - - Left foot area of Eschar with surrounding erythema. Skin: No Nodules or Sclerosis Neurological: Alert and Oriented x 3, NL Muscle Strength and Tone, - - Distal Neuropathy. Result Diagrams: 02/11/19 06:21 02/11/19 06:21 Microbiology and Other Data: Microbiology 02/10/19 20:34 Skin and Soft Tissue MRSA/MSSA (PCR - Final Foot Left Mrsa Negative S.aureus Negative Gram Stain - Final 02/11/19 01:10 Nasal Screen MRSA (PCR) - Final Nasal Mrsa Not Detected 02/10/19 17:00 Anaerobic Blood Culture - Final Blood Venous Assess/Plan/Problems-Billing Assessment: Patient is a 53yo female with a PMH for DM II, Endocarditis with AVR, morbid obesity, here with new diabetic foot ulcer. Patient is awaiting cultures and surgery. - Patient Problems (1) Osteomyelitis Current Visit: No Status: Acute Code(s): M86.9 - OSTEOMYELITIS, UNSPECIFIED SNOMED Code(s): 79803358 Comment: - Appreciate Ortho consult, pending MRI and Surgery - Cefepime and Flagyl, Stop Vanco with Negative MRSA PCR - ID consult when pending. (2) Anxiety with depression Current Visit: No Status: Acute Comment: - Poor Mood - Continue home treatments - Will need further optimization (3) Atrial fibrillation Current Visit: No Status: Acute Code(s): I48.91 - UNSPECIFIED ATRIAL FIBRILLATION SNOMED Code(s): 45553080 Comment: - Paryoxysmal - Continue Xarelto and Metoprolol (4) DVT prophylaxis Current Visit: No Status: Acute Priority: High Onset Date: 03/16/14 Code (s): [id number] - SNOMED Code(s): 320887784 Comment: - Xarelto (5) TULIO (obstructive sleep apnea) Current Visit: No Status: Acute Code(s): G47.33 - OBSTRUCTIVE SLEEP APNEA ( ADULT) (PEDIATRIC) SNOMED Code(s): 43633161 Comment: - Non-compliant with CPAP (6) Type 2 diabetes mellitus Current Visit: No Status: Acute Priority: Medium Onset Date: 03/16/14 Comment: - Continue lantus 25u with SSI and Metformin - Resume Xultophy at D/C and F/C Endocrinology (7) Full code status Current Visit: Yes Status: Acute Code(s): Z78.9 - OTHER SPECIFIED HEALTH STATUS SNOMED Code(s): 643174317 Status and Disposition: Inpatient for full evaluation and treatment of diabetic foot ulcer.
[2019-02-11] MEDS ORDERED: Magnesium Sulfate 2 GM IV* 2 GM/50 ML BAG IVPB ONE (16:52)
[2019-02-11] MEDS: Insulin GLARGINE(*) 1 UNITS UNIT SUBCUT SCH (17:11)
[2019-02-11] MEDS: metFORMIN* 500 MG TAB PO SCH (21:53)
[2019-02-12] MEDS: metroNIDAZOLE IV 500 MG/100ML* 500 MG/100 ML BAG IVPB SCH ×5 (04:17→23:44)
[2019-02-12] MEDS ORDERED: Vancomycin Trough Check NOTE FOLLOW UP ONE (05:30)
[2019-02-12 06:28] LABS: EGFR African American 56.3 (>60); EGFR Non-African American 46.5 (>60)
[2019-02-12 06:36] LABS: Vancomycin Trough 10.9 mcg/mL
[2019-02-12] MEDS: FLUoxetine CAP* 20 MG PO SCH (08:55)
[2019-02-12] MEDS: Cefepime 1 GM in Dextrose(*) 1 GM/50 ML BAG IV SCH ×2 (08:55→20:17)
[2019-02-12] MEDS: Cholecalciferol TAB* 1000 UNITS PO SCH (08:55)
[2019-02-12] MEDS: Rivaroxaban TAB(*) 15 MG PO SCH (08:55)
[2019-02-12] MEDS: Metoprolol Succinate XL TAB* 25 MG PO SCH ×2 (08:55→19:27)
[2019-02-12] MEDS: Insulin LISPRO* 1 UNITS UNIT SUBCUT SCH ×3 (08:55→17:44)
[2019-02-12] MEDS: metFORMIN* 500 MG TAB PO SCH ×2 (08:56→19:27)
--- NOTE | 2019-02-12 10:28 | PN ---
Subjective Date of Service: 02/12/19 Interval History: Patient is feeling well today. Patient has no pain, no N/V, abdominal pain, diarrhea, CP, SOB, dizziness or unsteadiness on standing. Patient is anxious for food and her surgery. Family History: Unchanged from Admission Social History: Unchanged from Admission Past Medical History: Unchanged from Admission Objective Active Medications: Acetaminophen (Tylenol Tab*) 650 mg PO Q6H PRN PRN Reason: MILD PAIN or TEMP > 100.4 Cholecalciferol (Vitamin D Tab*) 1,000 units PO DAILY [facility] Last Admin: 02/12/19 08:55 Dose: 1,000 units Dextrose (Dextrose 50% Vial 50 Ml*) 25 ml IV PUSH .FOR FS < 60 - SS PRN PRN Reason: FS < 60 Fluoxetine HCl (Prozac Cap*) 20 mg PO DAILY [facility] Last Admin: 02/12/19 08:55 Dose: 20 mg Cefepime HCl (Maxipime 1 Gm In Dextrose Duplex (*)) 1 gm in 50 mls @ 100 mls/ hr IV Q12HR [facility] Last Admin: 02/12/19 08:55 Dose: 100 mls/hr Metronidazole/Sodium Chloride (Flagyl 500 Mg Ivpb*) 500 mg in 100 mls @ 100 mls /hr IVPB Q6H [facility] Last Admin: 02/12/19 10:07 Dose: 100 mls/hr Insulin Glargine (Lantus(*)) 25 units SUBCUT Q24H [facility] Last Admin: 02/11/19 17:11 Dose: 25 unit Insulin Human Lispro (Humalog*) 0 units SUBCUT [facility]; Protocol Last Admin: 02/12/19 08:55 Dose: 3 units Magnesium Hydroxide (Milk Of Magnesia Liq*) 30 ml PO BID PRN PRN Reason: CONSTIPATION Metformin HCl (Glucophage*) 500 mg PO BID [facility] Last Admin: 02/12/19 08:56 Dose: Not Given Metoprolol Succinate (Toprol Xl Tab*) 25 mg PO BID [facility] Last Admin: 02/12/19 08:55 Dose: 25 mg Ondansetron HCl (Zofran Inj*) 4 mg IV Q6H PRN PRN Reason: NAUSEA Polyethylene Glycol/Electrolytes (Miralax*) 17 gm PO DAILY PRN PRN Reason: CONSTIPATION Rivaroxaban (Xarelto(*)) 15 mg PO DAILY [facility] Last Admin: 02/12/19 08:55 Dose: 15 mg Senna (Senokot 8.6 Mg Tab*) 1 tab PO DAILY PRN PRN Reason: CONSTIPATION Vital Signs - 8 hr 02/12/19 02/12/19 04:25 07:15 Temperature 98.8 F 97.2 F Pulse Rate 73 72 Respiratory 18 19 Rate Blood Pressure 130/65 141/71 (mmHg) O2 Sat by Pulse 95 95 Oximetry Oxygen Devices in Use Now: None Appearance: Patient is a morbidly obese 53yo female who appears stated age and is sitting in the bed in [facility]. Eyes: No Scleral Icterus, PERRLA Ears/Nose/Mouth/Throat: NL Teeth, Lips, Gums, Clear Oropharnyx, Mucous Membranes Moist Neck: NL Appearance and Movements; NL JVP, Trachea Midline Respiratory: Symmetrical Chest Expansion and Respiratory Effort, Clear to Auscultation Cardiovascular: NL Sounds; No Murmurs; No JVD, RRR, No Edema Abdominal: NL Sounds; No Tenderness; No Distention, No Hepatosplenomegaly Lymphatic: No Cervical Adenopathy Extremities: No Clubbing, Cyanosis, - - Large area of callus and exchar on head of left fifth metacarpal bone with receding erythema surrounding. Skin: No Nodules or Sclerosis Neurological: Alert and Oriented x 3, NL Muscle Strength and Tone, - - Peripheral Neuropathy. Result Diagrams: 02/11/19 06:21 02/12/19 05:45 Microbiology and Other Data: Microbiology 02/10/19 20:34 Skin and Soft Tissue MRSA/MSSA (PCR - Final Foot Left Mrsa Negative S.aureus Negative Gram Stain - Final 02/11/19 01:10 Nasal Screen MRSA (PCR) - Final Nasal Mrsa Not Detected 02/10/19 17:00 Anaerobic Blood Culture - Final Blood Venous Assess/Plan/Problems-Billing Assessment: Patient is a 53yo female with a PMH for DM II, Endocarditis with AVR, morbid obesity, here with new diabetic foot ulcer. Patient is awaiting cultures and surgery. - Patient Problems (1) Osteomyelitis Current Visit: No Status: Acute Code(s): M86.9 - OSTEOMYELITIS, UNSPECIFIED SNOMED Code(s): 89596307 Comment: - Appreciate Ortho consult, pending MRI and Surgery - Cefepime and Flagyl, Stop Vanco with Negative MRSA PCR - ID consult today - Surgery today. - Patient's RCRI is 2 due to her insulin use and CVA (Though this was Embolic), indicating a 10.1% chance of MACE in 30 days. Patient is asymptomatic from a cardiac standpoint, Patient does not attempt much activity, but is not limited by SOB. Cardiac Catheterization in 2017 showed no obstructive CAD. Echo in 2018 showed functioning valve and preserved EF. Patient was seen by her psychiatric specialist on 01/22/2019 with no active concerns. Patient is medically optimized for surgery with no further cardiac workup indicated. Patient is a moderate risk for this low risk surgery. - Continue Xarelto Perioperatively for low bleeding risk surgery (2) Anxiety with depression Current Visit: No Status: Acute Comment: - Poor Mood - Continue home treatments - Will need further optimization outpatient (3) Atrial fibrillation Current Visit: No Status: Acute Code(s): I48.91 - UNSPECIFIED ATRIAL FIBRILLATION SNOMED Code(s): 64661459 Comment: - Paryoxysmal - Continue Xarelto Periprocedurally - Continue Metoprolol (4) TULIO (obstructive sleep apnea) Current Visit: No Status: Acute Code(s): G47.33 - OBSTRUCTIVE SLEEP APNEA ( ADULT) (PEDIATRIC) SNOMED Code(s): 73907238 Comment: - Non-compliant with CPAP (5) Type 2 diabetes mellitus Current Visit: No Status: Acute Priority: Medium Onset Date: 03/16/14 Comment: - Continue lantus 25u with SSI and Metformin - Resume Xultophy at D/C and F/C Endocrinology (6) Full code status Current Visit: Yes Status: Acute Code(s): Z78.9 - OTHER SPECIFIED HEALTH STATUS SNOMED Code(s): 466118056 (7) DVT prophylaxis Current Visit: No Status: Acute Priority: High Onset Date: 03/16/14 Code (s): INA8466 - SNOMED Code(s): 988451993 Comment: - Xarelto continued through surgery Status and Disposition: Inpatient for full evaluation and treatment of diabetic foot ulcer.
--- NOTE | 2019-02-12 13:18 | PN ---
PROGRESS NOTE: DATE OF SERVICE: 02/12/19 INTERVAL HISTORY: Karma is seen on 02/12/19. She has had her MRI today of the left foot which shows osteomyelitis of the fifth metatarsal distal half and proximal phalanx. The ulcer is about quarter size and necrotic, slightly foul smelling. She appears to have a warm foot, but there is decreased sensation. I spoke with Karma about a fifth ray amputation on the left side. She understands a similar procedure on the right except with the great toe. She is also being followed by Infectious Disease. She is n.p.o. at this point. We will try to add on the case to the schedule. [id number]/[facility] #: [id number] MTDD
[2019-02-12] MEDS ORDERED: Famotidine IV* 10 MG/ML 2 ML (20 mg) IV ONE (13:20)
[2019-02-12] MEDS ORDERED: Buffered Lidocaine 1% SYRIN* 1 ML/SYRINGE INTRADERM ONE (13:20)
[2019-02-12] MEDS ORDERED: HYDROmorphone INJ1* 1 MG/ML SYRINGE IV PRN (13:21)
[2019-02-12] MEDS ORDERED: DiMENhydriNATE IV* 50 MG/ML VIAL IV PUSH PRN (13:21)
[2019-02-12] MEDS ORDERED: PROCHLORPERAZINE INJ 5 MG/ML 2 ML VIAL IV PRN (13:21)
[2019-02-12] MEDS ORDERED: fentaNYL* 50 MCG/ML 2 ML VIAL (100 MCG VIAL) IV PRN (13:21)
[2019-02-12] MEDS ORDERED: Naloxone* 0.4 MG/ML 1 ML VIAL IV PRN (13:21)
[2019-02-12] MEDS ORDERED: Famotidine IV* 10 MG/ML 2 ML (20 mg) ONE (13:30)
[2019-02-12] MEDS ORDERED: KETAMINE HCL* 50 MG/ML 10 ML VIAL ONE (13:32)
[2019-02-12] MEDS ORDERED: fentaNYL* 50 MCG/ML 2 ML VIAL (100 MCG VIAL) ONE (13:32)
[2019-02-12] MEDS ORDERED: Midazolam* 1 MG/ML 5 ML VIAL (5 MG) ONE (13:33)
[2019-02-12] MEDS ORDERED: Lactated Ringers 1000 ML Bag* 1,000 ML IV SCH (14:00)
[2019-02-12] MEDS ORDERED: Bupivacaine 0.5%* 50 ML MDV VIAL ONE (14:41)
[2019-02-12] MEDS ORDERED: Lidocaine 1% INJ* 10 MG/ML 30 ML SDV ONE (15:22)
--- NOTE | 2019-02-12 15:29 | CONS ---
CONSULTATION REPORT: DATE OF CONSULT: 02/12/19 PRIMARY CARE PROVIDER: Dr. Matthew Murphy. PROVIDER REQUESTING CONSULTATION: DAT Justice. CONSULTING SERVICE: Infectious Disease. PROVIDER: Samaria Bacon NP. ATTENDING PROVIDER: Dr. Cesar Velazquez* (dictated by Samaria Bacon NP). REASON FOR CONSULT: Left foot diabetic ulcer and osteomyelitis. IMPRESSION: 1. Left foot diabetic ulcer with chronic osteomyelitis. The patient is noted to have osteomyelitis on plain film x-rays and MRI of the fifth metatarsal distal and proximal phalanx. She has been on cefepime and Flagyl. Vancomycin was discontinued when the PCR returned negative for MRSA. She is afebrile with no leukocytosis. Orthopedics is planning to take her to surgery today for a left fifth ray amputation. 2. 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 3. Obstructive sleep apnea. 4. History of right first toe osteomyelitis, status post right first ray amputation. 5. Status post history of endocarditis, status post aortic valve replacement. RECOMMENDATIONS/PLAN: Recommend continuing cefepime and Flagyl for now while we await cultures from the operating room. The patient will likely need a prolonged course of IV antibiotics for 4 to 6 weeks. We will continue to follow along. Final recommendations will be made based on OR findings and culture results. HISTORY OF PRESENT ILLNESS: Ms. Mansfield is a 53-year-old female with past medical history significant for history of endocarditis; osteomyelitis, status post a right first toe amputation; diabetes mellitus type 2; peripheral neuropathy; diabetic retinopathy; paroxysmal atrial fibrillation; hypertension; obstructive sleep apnea, noncompliant with CPAP use, who had noticed a wound to the outer aspect of her left foot recently. She is unsure how long this has been present. She sleeps on her left side and feels that it may be secondary to pressure. Due to this ulcer, she presented to the hospital for further evaluation. What prompted her to come in is she started to have pain in that foot and she typically does not have pain in her foot and was starting to feel poorly. She is relatively sedentary and typically walks back and forth to the bathroom, but not much other activity. She presented to the emergency room for further evaluation. While in the emergency room, she had a plain film left foot x-ray showing findings most consistent with osteomyelitis involving the distal fifth metatarsal and possibly the fifth proximal phalanx. She was seen in consultation by Dr. Rogers with Orthopedics, who recommended an MRI. During her hospitalization, she was initially receiving vancomycin, cefepime, and Flagyl. She had a culture taken from this area that was negative for Staph aureus. Blood cultures with no growth. She had no leukocytosis. She has been afebrile. Today, she underwent a left lower extremity MRI showing findings most consistent with osteomyelitis involving the left distal fifth metatarsal and fifth proximal phalanx. She was seen by Dr. Lucero who recommended that she go to the operating room for a fifth ray amputation. She denies any fevers , chills, nausea, vomiting, diarrhea, abdominal pain, urinary symptoms. She does report bilateral lower extremity neuropathy. She denies recent travel. She denies any known trauma to the foot. PAST MEDICAL HISTORY: 1. Endocarditis. 2. Osteomyelitis of the right first toe. 3. Diabetes mellitus type 2. 4. Diabetic neuropathy. 5. Diabetic retinopathy. 6. Paroxysmal atrial fibrillation. 7. Hypertension. 8. Obstructive sleep apnea, noncompliant with her CPAP. 9. Chronic kidney disease. PAST SURGICAL HISTORY: 1. Status post aortic valve replacement. 2. Status post right first ray amputation. 3. Status post rotator cuff repair. 4. Status post hysterectomy. 5. Status post cholecystectomy. 6. Status post hernia repair. MEDICATIONS: Home medications: 1. Metformin 750 mg by mouth daily. 2. Fluoxetine 20 mg by mouth daily. 3. Vitamin D 1000 units by mouth daily. 4. Xultophy insulin 25 units subcutaneous daily. 5. Xarelto 15 mg by mouth daily. 6. Metoprolol succinate 25 mg by mouth twice daily. Hospital medications: 1. Acetaminophen 650 mg by mouth every 6 hours as needed for fever or pain. 2. Cefepime 1 g IV every 12 hours. 3. Vitamin D 1000 units by mouth daily. 4. Dextrose 25 mL IV push as needed for glucose less than 60. 5. Fluoxetine 20 mg by mouth daily. 6. Lantus 25 units subcutaneous every 24 hours. 7. Humalog insulin sliding scale subcutaneous with meals. 8. Lactated Ringer's 125 mL intravenously an hour. 9. Milk of magnesia 30 mL by mouth twice daily as needed for constipation. 10. Metformin 500 mg by mouth twice daily. 11. Metoprolol succinate 25 mg by mouth twice daily. 12. Metronidazole 500 mg IV every 6 hours. 13. Zofran 4 mg IV every 6 hours as needed for nausea. 14. MiraLAX 17 g by mouth daily as needed for constipation. 15. Senna 8.6 mg IV daily as needed for constipation. ALLERGIES: No known drug allergies. FAMILY HISTORY: Denies family history of recurrent or resistant infections. Mother with a history of heart disease, diabetes. Maternal grandmother with a history of an unknown cancer. SOCIAL HISTORY: Denies alcohol or recreational drug use. She is a former smoker, quitting a few years ago. REVIEW OF SYSTEMS: I performed a 10-point review of systems. All the pertinent positives and negatives are mentioned in the history of present illness. The remaining review of systems are negative. PHYSICAL EXAM: Vital Signs: Temperature 97.7, heart rate 71, respiratory rate 18, O2 sat 96% on room air, blood pressure 117/63. General Appearance: She is alert, appears to be in no acute distress. Head: Normocephalic, atraumatic. EENT: Extraocular movements are intact. No subconjunctival hemorrhage. Moist mucous membranes. Neck: Supple. No lymphadenopathy noted. Neurological: Alert and oriented x4. Cranial nerves II through XII are grossly intact. Cardiovascular: Regular rate and rhythm. S1 and S2 present. There are no murmurs, rubs, or gallops heard. Respiratory: No accessory muscle use. The lungs are clear to auscultation bilaterally, but diminished in the bases. Abdomen: Bowel sounds present. Abdomen is soft, nontender, obese. Extremities : There is mild bilateral lower extremity edema. DP and PT pulses are 1+ and symmetric. Musculoskeletal: No clubbing or cyanosis noted. She exhibits good strength in all extremities. Psychological: Calm and cooperative. Skin: No rashes seen on the exposed skin. She is noted to have an ulcer to the lateral aspect of her left foot. It is approximately 2.5 cm x 1.5 cm of black necrotic tissue. There is some discomfort with palpation of this area. There is no drainage. This is foul smelling. DIAGNOSTIC STUDIES/LAB DATA: From 02/11/19: Sodium 141, potassium 4.1, chloride 108, CO2 of 26, BUN 20, creatinine 1.24, glucose 156. White blood cell count 6.8, hemoglobin 11.1, hematocrit 34, platelet count 300. Blood cultures with no growth to date. Wound culture with 3+ gram-positive cocci, 1+ gram-negative bacilli, negative for MRSA and Staph aureus. CRP on admission was 28.96. Please see impression and recommendations outlined above, recommendations have been discussed with DAT Justice. Thank you for asking us to see Ms. Mansfield in consultation. The case has been reviewed with my attending Dr. Cesar Velazquez, who agrees with the plan of care. Reviewed by EUGENIO BENITO 02/15/19 [id number] [id number]/[facility] #: [id number] [facility]
[2019-02-12] MEDS ORDERED: Propofol* 10 MG/ML 20 ML BTL ONE (15:56)
[2019-02-12] MEDS ORDERED: Lidocaine 2% PF * 5 ML VIAL ONE (15:57)
[2019-02-12] MEDS ORDERED: PROCHLORPERAZINE INJ 5 MG/ML 2 ML VIAL ONE (16:10)
[2019-02-12] MEDS: Insulin GLARGINE(*) 1 UNITS UNIT SUBCUT SCH (17:44)
[2019-02-12] MEDS: Lactated Ringers 1000 ML Bag* 1,000 ML IV SCH (18:11)
[2019-02-13] MEDS: Lactated Ringers 1000 ML Bag* 1,000 ML IV SCH ×2 (04:37→16:27)
[2019-02-13] MEDS: Acetaminophen TAB* 325 MG PO PRN ×3 (04:56→18:03)
--- NOTE | 2019-02-13 04:59 | OP ---
OPERATIVE REPORT: DATE OF OPERATION: 02/12/19 - Inpatient, room 422-01 DATE OF : 65 SURGEON: Abel Lucero MD STRAW BOSS: DAT Decker ANESTHESIOLOGIST: Sixto Macias MD ANESTHESIA: MAC. PRE-OP DIAGNOSIS: Osteomyelitis, left fifth metatarsal and left fifth toe proximal phalanx. POST-OP DIAGNOSIS: Osteomyelitis, left fifth metatarsal and left fifth toe proximal phalanx. OPERATIVE PROCEDURE: Left fifth ray amputation. DESCRIPTION OF PROCEDURE: The patient was taken to the operating room where thigh tourniquet was inflated. We provided lidocaine around the base of the fifth ray. We made an incision longitudinally along the fifth metatarsal shaft and then circling the quarter sized ulcer and then around the base of the fifth toe. Due to this incision using full thickness dissection the metatarsal itself was dissected free and the toe and fifth metatarsal was sent en bloc to Pathology as well as the ulcer. We debrided some of the surrounding soft tissues dropping the tourniquet at 6 minutes to allow irrigation and hemostasis. Local cultures being sent. We closed plantar dorsally using some 2 -0 Monocryl and some 2-0 Prolene for the interrupted skin sutures. A compression dressing was applied. [id number]/[facility] #: [id number] [facility]
[2019-02-13] MEDS: metroNIDAZOLE IV 500 MG/100ML* 500 MG/100 ML BAG IVPB SCH ×3 (05:27→18:03)
[2019-02-13] MEDS: Enoxaparin(*) 40 MG/0.4 ML SYR SUBCUT SCH ×2 (05:39→18:02)
[2019-02-13 06:50] LABS: ABS Eosinophils 0.3 10^3/ul (0-0.6); ABS Lymphocytes 0.9 10^3/ul (1.0-4.8); ABS Monocytes 0.9 10^3/ul (0-0.8); ABS Neutrophils 5.4 10^3/ul (1.5-7.7); Eosinophil % 3.4 %; Hematocrit 33 % (35-47); Hemoglobin 10.6 g/dL (12.0-16.0); Lymphocyte % 12.2 %; Mean Corpuscular HGB Conc 32 g/dL (31-36); Mean Corpuscular Hemoglobin 26 pg (27-31); Mean Corpuscular Volume 81 fL (80-97); Mean Platelet Volume 7.9 fL (7.4-10.4); Platelet Count 287 10^3/uL (150-450); Red Blood Count 4.02 10^6 /uL (3.70-4.87); Red Cell Distribution Width 14 % (10-15); White Blood Count 7.6 10^3/uL (3.5-10.8)
[2019-02-13 06:57] LABS: BUN/Creatinine Ratio 12.1 (8-20); Calcium 8.5 mg/dL (8.6-10.3); EGFR African American 64.9 (>60); EGFR Non-African American 53.6 (>60); Magnesium 1.7 mg/dL (1.9-2.7); Potassium 3.8 mmol/L (3.5-5.0)
[2019-02-13] MEDS: metFORMIN* 500 MG TAB PO SCH ×2 (09:27→20:02)
[2019-02-13] MEDS: Cefepime 1 GM in Dextrose(*) 1 GM/50 ML BAG IV SCH ×2 (09:27→20:03)
[2019-02-13] MEDS: Cholecalciferol TAB* 1000 UNITS PO SCH (09:27)
[2019-02-13] MEDS: FLUoxetine CAP* 20 MG PO SCH (09:27)
[2019-02-13] MEDS: Insulin LISPRO* 1 UNITS UNIT SUBCUT SCH ×3 (09:28→18:03)
[2019-02-13] MEDS: Metoprolol Succinate XL TAB* 25 MG PO SCH ×2 (10:12→20:02)
[2019-02-13] MEDS ORDERED: Magnesium Sulfate 2 GM IV* 2 GM/50 ML BAG IVPB ONE (10:34)
--- NOTE | 2019-02-13 12:42 | PN ---
Subjective Date of Service: 02/13/19 Interval History: Patient has some moderate pain in her foot. Patient rates this pain at 3/10. Patient denies F/C, N/V, abdominal pain, CP, SOB, or other pain. Patient had one loose stool without blood. Family History: Unchanged from Admission Social History: Unchanged from Admission Past Medical History: Unchanged from Admission Objective Active Medications: Acetaminophen (Tylenol Tab*) 650 mg PO Q6H PRN PRN Reason: MILD PAIN or TEMP > 100.4 Last Admin: 02/13/19 09:27 Dose: 650 mg Cholecalciferol (Vitamin D Tab*) 1,000 units PO DAILY [facility] Last Admin: 02/13/19 09:27 Dose: 1,000 units Dextrose (Dextrose 50% Vial 50 Ml*) 25 ml IV PUSH .FOR FS < 60 - SS PRN PRN Reason: FS < 60 Enoxaparin Sodium (Lovenox(*)) 40 mg SUBCUT Q12H [facility] Stop: 02/13/19 18:01 Last Admin: 02/13/19 05:39 Dose: 40 mg Fluoxetine HCl (Prozac Cap*) 20 mg PO DAILY [facility] Last Admin: 02/13/19 09:27 Dose: 20 mg Cefepime HCl (Maxipime 1 Gm In Dextrose Duplex (*)) 1 gm in 50 mls @ 100 mls/ hr IV Q12HR [facility] Last Admin: 02/13/19 09:27 Dose: 100 mls/hr Metronidazole/Sodium Chloride (Flagyl 500 Mg Ivpb*) 500 mg in 100 mls @ 100 mls /hr IVPB Q6HR [facility] Last Admin: 02/13/19 05:27 Dose: 100 mls/hr Lactated Ringer's (Lactated Ringers 1000 Ml Bag*) 1,000 mls @ 125 mls/hr IV PER RATE [facility] Last Admin: 02/13/19 04:37 Dose: 125 mls/hr Insulin Glargine (Lantus(*)) 25 units SUBCUT Q24H [facility] Last Admin: 02/12/19 17:44 Dose: 25 unit Insulin Human Lispro (Humalog*) 0 units SUBCUT AC [facility]; Protocol Last Admin: 02/13/19 09:28 Dose: 3 units Magnesium Hydroxide (Milk Of Magnesia Liq*) 30 ml PO BID PRN PRN Reason: CONSTIPATION Metformin HCl (Glucophage*) 500 mg PO BID [facility] Last Admin: 02/13/19 09:27 Dose: 500 mg Metoprolol Succinate (Toprol Xl Tab*) 25 mg PO BID [facility] Last Admin: 02/13/19 10:12 Dose: 25 mg Ondansetron HCl (Zofran Inj*) 4 mg IV Q6H PRN PRN Reason: NAUSEA Polyethylene Glycol/Electrolytes (Miralax*) 17 gm PO DAILY PRN PRN Reason: CONSTIPATION Rivaroxaban (Xarelto(*)) 15 mg PO DAILY [facility] Senna (Senokot 8.6 Mg Tab*) 1 tab PO DAILY PRN PRN Reason: CONSTIPATION Vital Signs - 8 hr 02/13/19 02/13/19 02/13/19 07:15 08:00 11:15 Temperature 98 F 98 F Pulse Rate 72 67 Respiratory 18 18 18 Rate Blood Pressure 150/70 152/65 (mmHg) O2 Sat by Pulse 96 96 97 Oximetry Oxygen Devices in Use Now: None Appearance: Patient is a 53yo female who appears stated age, is morbidly obese, and is sitting in the bed in [facility]. Eyes: No Scleral Icterus, PERRLA Ears/Nose/Mouth/Throat: NL Teeth, Lips, Gums, Clear Oropharnyx, Mucous Membranes Moist Neck: NL Appearance and Movements; NL JVP, Trachea Midline Respiratory: Symmetrical Chest Expansion and Respiratory Effort, Clear to Auscultation Cardiovascular: NL Sounds; No Murmurs; No JVD, RRR, No Edema Abdominal: NL Sounds; No Tenderness; No Distention, No Hepatosplenomegaly Lymphatic: No Cervical Adenopathy Extremities: No Edema, No Clubbing, Cyanosis Skin: No Nodules or Sclerosis Neurological: Alert and Oriented x 3, NL Muscle Strength and Tone, - - CN II- XII intact. Peripheral Neuropathy. Result Diagrams: 02/13/19 06:30 02/13/19 06:30 Microbiology and Other Data: Microbiology 02/10/19 20:34 Skin and Soft Tissue MRSA/MSSA (PCR - Final Foot Left Mrsa Negative S.aureus Negative Gram Stain - Final 02/11/19 01:10 Nasal Screen MRSA (PCR) - Final Nasal Mrsa Not Detected 02/10/19 17:00 Anaerobic Blood Culture - Final Blood Venous Assess/Plan/Problems-Billing Assessment: Patient is a 53yo female with a PMH for DM II, Endocarditis with AVR, morbid obesity, here with new diabetic foot ulcer. Patient is awaiting cultures and surgery. - Patient Problems (1) Osteomyelitis Current Visit: No Status: Acute Code(s): M86.9 - OSTEOMYELITIS, UNSPECIFIED SNOMED Code(s): 86850266 Comment: - Appreciate Ortho consult, MRI showed Osteomyelitis - Cefepime and Flagyl, Stop Vanco with Negative MRSA PCR - Appreciate ID consult, Total 4-6 weeks IV ABX - PICC today - Cultures all NTD. (2) Anxiety with depression Current Visit: No Status: Acute Comment: - Poor Mood - Continue home treatments - Will need further optimization outpatient (3) Atrial fibrillation Current Visit: No Status: Acute Code(s): I48.91 - UNSPECIFIED ATRIAL FIBRILLATION SNOMED Code(s): 47452066 Comment: - Paryoxysmal - Continue Xarelto starting tomorrow. - Continue Metoprolol (4) TULIO (obstructive sleep apnea) Current Visit: No Status: Acute Code(s): G47.33 - OBSTRUCTIVE SLEEP APNEA ( ADULT) (PEDIATRIC) SNOMED Code(s): 90006415 Comment: - Non-compliant with CPAP (5) Type 2 diabetes mellitus Current Visit: No Status: Acute Priority: Medium Onset Date: 03/16/14 Comment: - Continue lantus 25u with SSI and Metformin - Resume Xultophy at D/C and F/C Endocrinology (6) Full code status Current Visit: Yes Status: Acute Code(s): Z78.9 - OTHER SPECIFIED HEALTH STATUS SNOMED Code(s): 460537240 (7) DVT prophylaxis Current Visit: No Status: Acute Priority: High Onset Date: 03/16/14 Code (s): GOX1449 - SNOMED Code(s): 795658430 Comment: - Xarelto resumed tomorrow - Lovenox today. Status and Disposition: Inpatient for full evaluation and treatment of diabetic foot ulcer.
[2019-02-13] MEDS: Insulin GLARGINE(*) 1 UNITS UNIT SUBCUT SCH (18:02)
[2019-02-14] MEDS: metroNIDAZOLE IV 500 MG/100ML* 500 MG/100 ML BAG IVPB SCH ×5 (00:13→23:51)
[2019-02-14] MEDS: metFORMIN* 500 MG TAB PO SCH ×2 (09:17→21:37)
[2019-02-14] MEDS: Insulin LISPRO* 1 UNITS UNIT SUBCUT SCH ×3 (09:17→17:34)
[2019-02-14] MEDS: FLUoxetine CAP* 20 MG PO SCH (09:17)
[2019-02-14] MEDS: Cefepime 1 GM in Dextrose(*) 1 GM/50 ML BAG IV SCH ×2 (09:18→21:37)
[2019-02-14] MEDS: Rivaroxaban TAB(*) 15 MG PO SCH (09:18)
[2019-02-14] MEDS: Cholecalciferol TAB* 1000 UNITS PO SCH (09:18)
[2019-02-14] MEDS: Metoprolol Succinate XL TAB* 25 MG PO SCH ×2 (09:18→21:37)
[2019-02-14] MEDS: Acetaminophen TAB* 325 MG PO PRN ×2 (09:44→21:37)
[2019-02-14] MEDS ORDERED: Gabapentin CAP(*) 300 MG PO ONE (10:42)
--- NOTE | 2019-02-14 10:48 | PN ---
Subjective Date of Service: 02/14/19 Interval History: Ms. Mansfield states that her L foot pain is 0/10, but does c/o "shocking" neuropathy in b/l LE, R>L. She is unsure if she has ever tried any rx for this now or in the past. She has been up to the BR using rolling walker and reports compliance with NWB LLE status, but does admit to some difficulty. She has no other complaints today. Family History: Unchanged from Admission Social History: Unchanged from Admission Past Medical History: Unchanged from Admission Objective Active Medications: Acetaminophen (Tylenol Tab*) 650 mg PO Q6H PRN PRN Reason: MILD PAIN or TEMP > 100.4 Last Admin: 02/14/19 09:44 Dose: 650 mg Cholecalciferol (Vitamin D Tab*) 1,000 units PO DAILY [facility] Last Admin: 02/14/19 09:18 Dose: 1,000 units Dextrose (Dextrose 50% Vial 50 Ml*) 25 ml IV PUSH .FOR FS < 60 - SS PRN PRN Reason: FS < 60 Fluoxetine HCl (Prozac Cap*) 20 mg PO DAILY [facility] Last Admin: 02/14/19 09:17 Dose: 20 mg Gabapentin (Neurontin Cap(*)) 300 mg PO ONCE ONE Stop: 02/14/19 10:43 Gabapentin (Neurontin Cap(*)) 300 mg PO BID [facility] Cefepime HCl (Maxipime 1 Gm In Dextrose Duplex (*)) 1 gm in 50 mls @ 100 mls/ hr IV Q12HR [facility] Last Admin: 02/14/19 09:18 Dose: 100 mls/hr Metronidazole/Sodium Chloride (Flagyl 500 Mg Ivpb*) 500 mg in 100 mls @ 100 mls /hr IVPB Q6HR [facility] Last Admin: 02/14/19 05:09 Dose: 100 mls/hr Lactated Ringer's (Lactated Ringers 1000 Ml Bag*) 1,000 mls @ 125 mls/hr IV PER RATE [facility] Last Admin: 02/13/19 16:27 Dose: 125 mls/hr Insulin Glargine (Lantus(*)) 25 units SUBCUT Q24H [facility] Last Admin: 02/13/19 18:02 Dose: 25 unit Insulin Human Lispro (Humalog*) 0 units SUBCUT AC [facility]; Protocol Last Admin: 02/14/19 09:17 Dose: 3 units Magnesium Hydroxide (Milk Of Magnesia Liq*) 30 ml PO BID PRN PRN Reason: CONSTIPATION Metformin HCl (Glucophage*) 500 mg PO BID [facility] Last Admin: 02/14/19 09:17 Dose: 500 mg Metoprolol Succinate (Toprol Xl Tab*) 25 mg PO BID [facility] Last Admin: 02/14/19 09:18 Dose: 25 mg Ondansetron HCl (Zofran Inj*) 4 mg IV Q6H PRN PRN Reason: NAUSEA Polyethylene Glycol/Electrolytes (Miralax*) 17 gm PO DAILY PRN PRN Reason: CONSTIPATION Rivaroxaban (Xarelto(*)) 15 mg PO DAILY [facility] Last Admin: 02/14/19 09:18 Dose: 15 mg Senna (Senokot 8.6 Mg Tab*) 1 tab PO DAILY PRN PRN Reason: CONSTIPATION Vital Signs: Temp Pulse Resp BP Pulse Ox 98.7 F 76 20 160/69 96 02/14/19 03:38 02/14/19 03:38 02/14/19 03:38 02/14/19 03:38 02/14/19 03:38 Oxygen Devices in Use Now: Nasal Cannula Appearance: Ms. Mansfield is an obese, middle-aged white woman who is laying flat in bed; she appears older than stated age; appears to be in no acute distress. Eyes: No Scleral Icterus, PERRLA Ears/Nose/Mouth/Throat: NL Teeth, Lips, Gums, Clear Oropharnyx, Mucous Membranes Moist Neck: NL Appearance and Movements; NL JVP, Trachea Midline Respiratory: Symmetrical Chest Expansion and Respiratory Effort, Clear to Auscultation - mildly diminished, likely d/t body habitus Cardiovascular: RRR, No Edema, - - S1, S2 present; systolic murmur noted; without apparent JVD Abdominal: NL Sounds; No Tenderness; No Distention, No Hepatosplenomegaly Extremities: No Edema, No Clubbing, Cyanosis, - - RLE with 1st digit amputation noted; LLE with CDI dressing in place; cap refill intact; pedal pulses palpable Neurological: Alert and Oriented x 3, NL Muscle Strength and Tone, - - decreased sensation to b/l LE Result Diagrams: 02/13/19 06:30 02/13/19 06:30 Microbiology and Other Data: Microbiology 02/10/19 20:34 Skin and Soft Tissue MRSA/MSSA (PCR - Final Foot Left Mrsa Negative S.aureus Negative Gram Stain - Final 02/11/19 01:10 Nasal Screen MRSA (PCR) - Final Nasal Mrsa Not Detected 02/10/19 17:00 Anaerobic Blood Culture - Final Blood Venous Assess/Plan/Problems-Billing Assessment: Patient is a 53yo female with a PMH for DM II, Endocarditis with AVR, morbid obesity, here with new diabetic foot ulcer. Patient post-op L 5th ray amputation . and will be placed on 4-6 weeks IV antibiotics. - Patient Problems (1) Osteomyelitis Comment: -MRI showed L 5th digit osteomyelitis -appreciate Ortho consult -continue Cefepime and Flagyl -appreciate ID consult; plan for total of 4-6 weeks IV abx -PICC today -cultures all NGTD (2) Neuropathy Comment: -pt with c/o b/l LE neuropathy -add on gabapentin, starting with 300 today; 300 bid tomorrow if tolerating (3) Type 2 diabetes mellitus Comment: -BS 150-230's -continue lantus 25u with SSI and Metformin -resume Xultophy at D/C and F/C Endocrinology (4) Atrial fibrillation Comment: -paryoxysmal -continue Xarelto, metoprolol (5) Anxiety with depression Comment: -poor mood -continue home treatments -will need further optimization outpatient (6) Chronic kidney disease Comment: -stable with Cr at baseline (7) TULIO (obstructive sleep apnea) Comment: -non-compliant with CPAP (8) DVT prophylaxis Comment: -continue xarelto (9) Full code status Code(s): Z78.9 - OTHER SPECIFIED HEALTH STATUS Status and Disposition: Inpatient for full evaluation and treatment of diabetic foot ulcer.
[2019-02-14] MEDS: Lactated Ringers 1000 ML Bag* 1,000 ML IV SCH (15:18)
[2019-02-14] MEDS: Insulin GLARGINE(*) 1 UNITS UNIT SUBCUT SCH (17:34)
[2019-02-15 06:00] LABS: ABS Basophils 0.1 10^3/ul (0-0.2); ABS Eosinophils 0.2 10^3/ul (0-0.6); ABS Lymphocytes 1.3 10^3/ul (1.0-4.8); ABS Neutrophils 6.1 10^3/ul (1.5-7.7); Eosinophil % 2.6 %; Hematocrit 31 % (35-47); Hemoglobin 10.2 g/dL (12.0-16.0); Lymphocyte % 15.2 %; Mean Corpuscular HGB Conc 33 g/dL (31-36); Mean Corpuscular Hemoglobin 27 pg (27-31); Mean Corpuscular Volume 83 fL (80-97); Mean Platelet Volume 8.4 fL (7.4-10.4); Platelet Count 307 10^3/uL (150-450); Red Cell Distribution Width 15 % (10-15); White Blood Count 8.7 10^3/uL (3.5-10.8)
[2019-02-15] MEDS: metroNIDAZOLE IV 500 MG/100ML* 500 MG/100 ML BAG IVPB SCH ×4 (06:00→22:56)
[2019-02-15] MEDS: Metoprolol Succinate XL TAB* 25 MG PO SCH ×2 (08:09→21:53)
[2019-02-15] MEDS: FLUoxetine CAP* 20 MG PO SCH (08:10)
[2019-02-15] MEDS: metFORMIN* 500 MG TAB PO SCH ×2 (08:10→21:53)
[2019-02-15] MEDS: Cholecalciferol TAB* 1000 UNITS PO SCH (08:10)
[2019-02-15] MEDS: Rivaroxaban TAB(*) 15 MG PO SCH (08:11)
[2019-02-15] MEDS: Insulin LISPRO* 1 UNITS UNIT SUBCUT SCH ×3 (08:12→17:49)
[2019-02-15] MEDS: Cefepime 1 GM in Dextrose(*) 1 GM/50 ML BAG IV SCH ×2 (08:12→21:46)
[2019-02-15] MEDS ORDERED: Gabapentin CAP(*) 300 MG PO SCH (09:00)
[2019-02-15] MEDS: Lactated Ringers 1000 ML Bag* 1,000 ML IV SCH (12:46)
--- NOTE | 2019-02-15 16:07 | PN ---
Subjective Date of Service: 02/15/19 Interval History: Ms. Mansfield denies pain in the post-operative foot. She has been up to commode with walker and without difficulty. She does continue to have "shocking" neuropathic pain in b/l LE, but reports great improvement with initiation of gabapentin. She has no other complaints today. Family History: Unchanged from Admission Social History: Unchanged from Admission Past Medical History: Unchanged from Admission Objective Active Medications: Acetaminophen (Tylenol Tab*) 650 mg PO Q6H PRN PRN Reason: MILD PAIN or TEMP > 100.4 Last Admin: 02/14/19 21:37 Dose: 650 mg Cholecalciferol (Vitamin D Tab*) 1,000 units PO DAILY [facility] Last Admin: 02/15/19 08:10 Dose: 1,000 units Dextrose (Dextrose 50% Vial 50 Ml*) 25 ml IV PUSH .FOR FS < 60 - SS PRN PRN Reason: FS < 60 Fluoxetine HCl (Prozac Cap*) 20 mg PO DAILY [facility] Last Admin: 02/15/19 08:10 Dose: 20 mg Gabapentin (Neurontin Cap(*)) 300 mg PO BID [facility] Last Admin: 02/15/19 08:11 Dose: 300 mg Heparin Sodium (Porcine) (Heparin Flush Picc/Ml/Cvc(*)) 1 - 3 ml FLUSH 0600, 1800 [facility]; Protocol Cefepime HCl (Maxipime 1 Gm In Dextrose Duplex (*)) 1 gm in 50 mls @ 100 mls/ hr IV Q12HR [facility] Last Admin: 02/15/19 08:12 Dose: 100 mls/hr Metronidazole/Sodium Chloride (Flagyl 500 Mg Ivpb*) 500 mg in 100 mls @ 100 mls /hr IVPB Q6HR [facility] Last Admin: 02/15/19 12:45 Dose: 100 mls/hr Lactated Ringer's (Lactated Ringers 1000 Ml Bag*) 1,000 mls @ 125 mls/hr IV PER RATE [facility] Last Admin: 02/15/19 12:46 Dose: 125 mls/hr Insulin Glargine (Lantus(*)) 25 units SUBCUT Q24H [facility] Last Admin: 02/14/19 17:34 Dose: 25 unit Insulin Human Lispro (Humalog*) 0 units SUBCUT AC [facility]; Protocol Last Admin: 02/15/19 12:45 Dose: 3 units Magnesium Hydroxide (Milk Of Magnesia Liq*) 30 ml PO BID PRN PRN Reason: CONSTIPATION Metformin HCl (Glucophage*) 500 mg PO BID [facility] Last Admin: 02/15/19 08:10 Dose: 500 mg Metoprolol Succinate (Toprol Xl Tab*) 25 mg PO BID [facility] Last Admin: 02/15/19 08:09 Dose: 25 mg Ondansetron HCl (Zofran Inj*) 4 mg IV Q6H PRN PRN Reason: NAUSEA Polyethylene Glycol/Electrolytes (Miralax*) 17 gm PO DAILY PRN PRN Reason: CONSTIPATION Rivaroxaban (Xarelto(*)) 15 mg PO DAILY [facility] Last Admin: 02/15/19 08:11 Dose: 15 mg Senna (Senokot 8.6 Mg Tab*) 1 tab PO DAILY PRN PRN Reason: CONSTIPATION Vital Signs: Temp Pulse Resp BP Pulse Ox 98.1 F 73 16 148/69 94 02/15/19 15:15 02/15/19 15:15 02/15/19 15:15 02/15/19 15:15 02/15/19 15:15 Oxygen Devices in Use Now: None Appearance: Ms. Mansfield is an obese, middle-aged white woman who is laying in bed. She appears to comfortable and in no acute distress. Eyes: No Scleral Icterus, PERRLA Ears/Nose/Mouth/Throat: NL Teeth, Lips, Gums, Clear Oropharnyx, Mucous Membranes Moist Neck: NL Appearance and Movements; NL JVP, Trachea Midline Respiratory: Symmetrical Chest Expansion and Respiratory Effort, Clear to Auscultation - mildly diminished, without wheeze, rhonchi, rales Cardiovascular: NL Sounds; No Murmurs; No JVD, RRR, No Edema Abdominal: NL Sounds; No Tenderness; No Distention, No Hepatosplenomegaly Extremities: - - b/l LE with dry, flaking skin; RLE with great toe amputation; LLE with 5th digit amputation that is wrapped with CDI dressing Neurological: Alert and Oriented x 3 Result Diagrams: 02/15/19 05:39 02/13/19 06:30 Microbiology and Other Data: Microbiology 02/10/19 20:34 Skin and Soft Tissue MRSA/MSSA (PCR - Final Foot Left Mrsa Negative S.aureus Negative Gram Stain - Final 02/11/19 01:10 Nasal Screen MRSA (PCR) - Final Nasal Mrsa Not Detected 02/10/19 17:00 Anaerobic Blood Culture - Final Blood Venous Assess/Plan/Problems-Billing Assessment: Patient is a 53yo female with a PMH for DM II, Endocarditis with AVR, morbid obesity, here with new diabetic foot ulcer. Patient post-op L 5th ray amputation 12.30 and will be placed on 4-6 weeks IV antibiotics. - Patient Problems (1) Osteomyelitis Comment: -MRI showed L 5th digit osteomyelitis -appreciate Ortho consult -continue Cefepime and Flagyl -appreciate ID consult; plan for total of 4-6 weeks IV abx -PICC in place -cultures all NGTD (2) Neuropathy Comment: -pt with c/o b/l LE neuropathy with is improving with elvia -pt tolerating new rx -gabapentin to 300 tid tomorrow (3) Type 2 diabetes mellitus Comment: -BS 190-240's -continue lantus 25u with SSI and Metformin -resume Xultophy at D/C and F/U Endocrinology (4) Atrial fibrillation Comment: -paryoxysmal -continue Xarelto, metoprolol (5) Anxiety with depression Comment: -poor mood -continue home treatments -will need further optimization outpatient (6) Chronic kidney disease Comment: -stable with Cr at baseline (7) TULIO (obstructive sleep apnea) Comment: -non-compliant with CPAP (8) DVT prophylaxis Comment: -continue xarelto (9) Full code status Code(s): Z78.9 - OTHER SPECIFIED HEALTH STATUS Status and Disposition: Inpatient for full evaluation and treatment of diabetic foot ulcer.
[2019-02-15] MEDS: Insulin GLARGINE(*) 1 UNITS UNIT SUBCUT SCH (17:49)
[2019-02-15] MEDS: Acetaminophen TAB* 325 MG PO PRN (21:52)
[2019-02-15] MEDS: Gabapentin CAP(*) 300 MG PO SCH (21:54)
[2019-02-16] MEDS: metroNIDAZOLE IV 500 MG/100ML* 500 MG/100 ML BAG IVPB SCH ×2 (05:00→13:13)
[2019-02-16 06:28] LABS: ABS Basophils 0.1 10^3/ul (0-0.2); ABS Eosinophils 0.2 10^3/ul (0-0.6); ABS Lymphocytes 1.4 10^3/ul (1.0-4.8); ABS Monocytes 0.9 10^3/ul (0-0.8); ABS Neutrophils 5.2 10^3/ul (1.5-7.7); Eosinophil % 3.1 %; Hematocrit 31 % (35-47); Hemoglobin 10.2 g/dL (12.0-16.0); Lymphocyte % 17.6 %; Mean Corpuscular HGB Conc 33 g/dL (31-36); Mean Corpuscular Hemoglobin 27 pg (27-31); Mean Corpuscular Volume 81 fL (80-97); Platelet Count 299 10^3/uL (150-450); Red Cell Distribution Width 14 % (10-15); White Blood Count 7.7 10^3/uL (3.5-10.8)
[2019-02-16 06:42] LABS: BUN/Creatinine Ratio 11.8 (8-20); C Reactive Protein 93.64 mg/L (<8.01); Calcium 8.2 mg/dL (8.6-10.3); EGFR African American 68.6 (>60); EGFR Non-African American 56.7 (>60); Magnesium 1.7 mg/dL (1.9-2.7); Potassium 3.8 mmol/L (3.5-5.0)
[2019-02-16] MEDS ORDERED: Magnesium Sulfate 2 GM IV* 2 GM/50 ML BAG IVPB ONE (07:28)
[2019-02-16] MEDS: Gabapentin CAP(*) 300 MG PO SCH ×3 (09:49→20:30)
[2019-02-16] MEDS: Metoprolol Succinate XL TAB* 25 MG PO SCH ×2 (09:49→20:30)
[2019-02-16] MEDS: Lactobacillus Acidophilus* 1 TAB PO SCH (09:49)
[2019-02-16] MEDS: metFORMIN* 500 MG TAB PO SCH ×2 (09:50→20:30)
[2019-02-16] MEDS: Rivaroxaban TAB(*) 15 MG PO SCH (09:50)
[2019-02-16] MEDS: Cholecalciferol TAB* 1000 UNITS PO SCH (09:50)
[2019-02-16] MEDS: FLUoxetine CAP* 20 MG PO SCH (09:50)
[2019-02-16] MEDS: Cefepime 1 GM in Dextrose(*) 1 GM/50 ML BAG IV SCH (09:51)
[2019-02-16] MEDS: Insulin LISPRO* 1 UNITS UNIT SUBCUT SCH ×3 (09:51→17:12)
--- NOTE | 2019-02-16 10:38 | PN ---
Progress Note - Progress Note Date of Service: 02/16/19 SOAP: Subjective: CC: Left foot infection HPI: Ms. Mansfield is a 53 yo female with PMH significant for hx AV endocarditis s/p AVR, osteomyelitis s/p right 1st toe amp, DM2, peripheral neuropathy, diabetic retinopathy, P afib, HTN, TULIO; who presented to the hospital with an ulcer on the left foot. She underwent a left 5th ray amputation on 02/13/20. Denies fever , chills, nausea, vomiting, or diarrhea. Reports continued left foot pain, this is improved this AM after pain medication. Objective: Vital Signs - 8 hr 02/16/19 02/16/19 02/16/19 04:02 07:15 08:00 Temperature 96.8 F 97.8 F Pulse Rate 69 69 Respiratory 20 19 Rate Blood Pressure 142/63 163/71 (mmHg) O2 Sat by Pulse 93 95 95 Oximetry Physical Exam: General: NAD, laying in bed Neurological: Alert and Oriented x3 HEENT: Moist MM, no thrush Cardiovascular: Heart rate regular, no murmur Respiratory: Lung sounds clear, diminished in the bases Abdominal: Bowel sounds present; ABD obese, non tender and non distended MSK: Moves left ankle without difficulty Skin: No rash. DSG to left foot clean, dry and intact Laboratory Results - last 24 hr 02/15/19 02/15/19 02/16/19 12:14 17:35 06:03 WBC RBC Hgb Hct MCV MCH MCHC RDW Plt Count MPV Neut % (Auto) Lymph % (Auto) [place] % (Auto) Eos % (Auto) Baso % (Auto) Absolute Neuts (auto) Absolute Lymphs (auto) Absolute Monos (auto) Absolute Eos (auto) Absolute Basos (auto) Absolute Nucleated RBC Nucleated RBC % Sodium 140 Potassium 3.8 Chloride 109 Carbon Dioxide 26 Anion Gap 5 BUN 12 Creatinine 1.02 H Est GFR ( Amer) 68.6 Est GFR (Non-Af Amer) 56.7 BUN/Creatinine Ratio 11.8 Glucose 139 H POC Glucose (mg/dL) 179 H 225 H Calcium 8.2 L Magnesium 1.7 L C-Reactive Protein 93.64 H 02/16/19 02/16/19 06:03 08:20 WBC 7.7 RBC 3.80 Hgb 10.2 L Hct 31 L MCV 81 MCH 27 MCHC 33 RDW 14 Plt Count 299 MPV 8.0 Neut % (Auto) 66.9 Lymph % (Auto) 17.6 [place] % (Auto) 11.7 Eos % (Auto) 3.1 Baso % (Auto) 0.7 Absolute Neuts (auto) 5.2 Absolute Lymphs (auto) 1.4 Absolute Monos (auto) 0.9 H Absolute Eos (auto) 0.2 Absolute Basos (auto) 0.1 Absolute Nucleated RBC 0.0 Nucleated RBC % 0.0 Sodium Potassium Chloride Carbon Dioxide Anion Gap BUN Creatinine Est GFR ( Amer) Est GFR (Non-Af Amer) BUN/Creatinine Ratio Glucose POC Glucose (mg/dL) 167 H Calcium Magnesium C-Reactive Protein Microbiology 02/10/19 17:00 Aerobic Blood Culture - Final Blood Venous No Growth Day 5 Anaerobic Blood Culture - Final No Growth Day 5 02/10/19 17:00 Aerobic Blood Culture - Final Blood Venous No Growth Day 5 Anaerobic Blood Culture - Final 02/12/19 13:00 Anaerobic Culture - Preliminary Wound 02/12/19 13:00 Skin and Soft Tissue MRSA/MSSA (PCR - Final Foot Left Mrsa Negative S.aureus Negative Gram Stain - Final Wound Culture - Preliminary No Growth Day 1 02/10/19 20:34 Skin and Soft Tissue MRSA/MSSA (PCR - Final Foot Left Mrsa Negative S.aureus Negative Gram Stain - Final Wound Culture - Final Normal Fritz 02/11/19 01:10 Nasal Screen MRSA (PCR) - Final Nasal Mrsa Not Detected Assessment: 1. Left foot diabetic ulcer with chronic osteomyelitis. Plain film xray with osteomyelitis. Initial wound cultures with normal fritz. MRI of the left foot with left 5th metatarsal and proximal phalanx osteomyelitis. Has been on cefepime and Flagyl. S/P left 5th ray amputation on 02/13/20. Cultures from the OR with normal fritz. Afebrile and no leukocytosis. Blood cultures with no growth on day 5. 2. DM2. With DM foot ulcer present on admission, peripheral neuropathy, and retinopathy. 3. Morbid obesity. BMI 57.2. With TULIO, non compliant with CPAP. 4. History of right 1st toe osteomyelitis. S/P right 1st ray amputation. 5. Hx endocarditis. S/P AVR Plan: Discontinue cefepime and flagyl. Will start Vancomycin with 2gm bolus and 1,500 mg IV Q12H, day 06/11-. Has had a PICC line placed. Will need weekly labs while on IV ABX: CBC, CMP, and CRP. She will need to have followup with ID outpatient in 1-2 weeks. 25 minutes floor time, > 50% spent at bedside with the patient and on the phone with the discussing the need for prolonged IV ABX, followup and possible side effects.
[2019-02-16] MEDS ORDERED: Vancomycin(*) 2,000 MG in NS 0.9% 250 ML* 250 ML IVPB ONE (15:53)
[2019-02-16] MEDS ORDERED: Vancomycin per Pharmacy* NOTE FOLLOW UP SCH (16:00)
--- NOTE | 2019-02-16 16:25 | PN ---
Progress Note - Progress Note Date of Service: 02/16/19 SOAP: Subjective: [Pt seen today sitting up in chair. She states that she got her dressing wet when she took a shower. She denies any fevers, chills or night sweats. ] Objective: [General: A&OX3, NAD. MSK, LLE: Dressing changed today. Incision is c/d/i. There is on drainage. Sutures in place. New dressing placed over this. She has decreased sensation in the foot. Toes able to wiggle, anlke df and pf intact. ] Vital Signs Temp 97.5 F 02/16/19 11:15 Pulse 62 02/16/19 11:15 Resp 19 02/16/19 15:37 BP 132/60 02/16/19 11:15 Pulse Ox 96 02/16/19 11:15 Intake & Output 02/15/19 02/16/19 02/16/19 18:59 06:59 18:59 Intake Total 1270 630 580 Balance 1270 630 580 Intake: IV Fluids 20 NS (0.9%) 20 IVPB 150 130 ABX - CEFEPIME 50 65 flagyl 100 65 Oral 1120 480 580 Other: Estimated Void Large Medium # Bowel Movements 1 0 Estimated Stool Amount Large # Voids 1 1 Assessment: [S/P 5th ray amp] Plan: [Dressing changed Continue with antibiotics continue with pain medication]
[2019-02-16] MEDS ORDERED: Vancomycin(*) 2,000 MG in NS 0.9% 500 ML* 500 ML IVPB ONE (17:00)
[2019-02-16] MEDS: Insulin GLARGINE(*) 1 UNITS UNIT SUBCUT SCH (17:12)
--- NOTE | 2019-02-16 18:00 | PN ---
Subjective Date of Service: 02/16/19 Interval History: Ms. Mansfield is doing well today. She has no complaints of pain in the LLE. Her dressing is wet; patient did not realize this, and believes it occurred when she showered. She states that has been a decrease in neuropathy since elvia started, and is tolerating it well. She has no other complaints today. Family History: Unchanged from Admission Social History: Unchanged from Admission Past Medical History: Unchanged from Admission Objective Active Medications: Acetaminophen (Tylenol Tab*) 650 mg PO Q6H PRN PRN Reason: MILD PAIN or TEMP > 100.4 Last Admin: 02/15/19 21:52 Dose: 650 mg Cholecalciferol (Vitamin D Tab*) 1,000 units PO DAILY [facility] Last Admin: 02/16/19 09:50 Dose: 1,000 units Dextrose (Dextrose 50% Vial 50 Ml*) 25 ml IV PUSH .FOR FS < 60 - SS PRN PRN Reason: FS < 60 Fluoxetine HCl (Prozac Cap*) 20 mg PO DAILY [facility] Last Admin: 02/16/19 09:50 Dose: 20 mg Gabapentin (Neurontin Cap(*)) 300 mg PO TID [facility] Last Admin: 02/16/19 13:14 Dose: 300 mg Heparin Sodium (Porcine) (Heparin Flush Picc/Ml/Cvc(*)) 1 - 3 ml FLUSH 0600, 1800 [facility]; Protocol Last Admin: 02/16/19 06:39 Dose: 1 ml Vancomycin HCl 2,000 mg/ (Sodium Chloride) 500 mls @ 250 mls/hr IVPB ONCE ONE Stop: 02/16/19 18:59 Last Admin: 02/16/19 17:11 Dose: 250 mls/hr Insulin Glargine (Lantus(*)) 25 units SUBCUT Q24H [facility] Last Admin: 02/16/19 17:12 Dose: 25 unit Insulin Human Lispro (Humalog*) 0 units SUBCUT AC [facility]; Protocol Last Admin: 02/16/19 17:12 Dose: Not Given Lactobacillus Rhamnosus (Lactobacillus Acidophilus*) 1 tab PO DAILY [facility] Last Admin: 02/16/19 09:49 Dose: 1 tab Magnesium Hydroxide (Milk Of Magnesia Liq*) 30 ml PO BID PRN PRN Reason: CONSTIPATION Metformin HCl (Glucophage*) 500 mg PO BID [facility] Last Admin: 02/16/19 09:50 Dose: 500 mg Metoprolol Succinate (Toprol Xl Tab*) 25 mg PO BID [facility] Last Admin: 02/16/19 09:49 Dose: 25 mg Ondansetron HCl (Zofran Inj*) 4 mg IV Q6H PRN PRN Reason: NAUSEA Pharmacy Consult (Vancomycin Per Pharmacy*) 1 note FOLLOW UP .VANC PER PHARMACY [facility]; Protocol Polyethylene Glycol/Electrolytes (Miralax*) 17 gm PO DAILY PRN PRN Reason: CONSTIPATION Rivaroxaban (Xarelto(*)) 15 mg PO DAILY [facility] Last Admin: 02/16/19 09:50 Dose: 15 mg Senna (Senokot 8.6 Mg Tab*) 1 tab PO DAILY PRN PRN Reason: CONSTIPATION Vital Signs: Temp Pulse Resp BP Pulse Ox 98.1 F 63 20 106/69 97 02/16/19 17:25 02/16/19 17:25 02/16/19 17:25 02/16/19 17:25 02/16/19 17:25 Oxygen Devices in Use Now: None Appearance: Ms. Mansfield is an obese middle-aged white woman who is laying in bed. She appears comfortable, in no acute distress. Patient has some apparent difficulty with movement. Eyes: No Scleral Icterus, PERRLA Ears/Nose/Mouth/Throat: NL Teeth, Lips, Gums, Clear Oropharnyx, Mucous Membranes Moist Neck: NL Appearance and Movements; NL JVP, Trachea Midline Respiratory: Symmetrical Chest Expansion and Respiratory Effort, Clear to Auscultation Cardiovascular: NL Sounds; No Murmurs; No JVD, RRR, No Edema Abdominal: NL Sounds; No Tenderness; No Distention, No Hepatosplenomegaly Extremities: No Edema, No Clubbing, Cyanosis, - - b/l LE with dry, flaking skin ; obvious b/l foot deformities; old R LE 1st digit amputation; s/p L 5th digit amputation; dressing replaced by ortho and is CDI Neurological: Alert and Oriented x 3 Result Diagrams: 02/16/19 06:03 02/16/19 06:03 Microbiology and Other Data: Microbiology 02/10/19 20:34 Skin and Soft Tissue MRSA/MSSA (PCR - Final Foot Left Mrsa Negative S.aureus Negative Gram Stain - Final 02/11/19 01:10 Nasal Screen MRSA (PCR) - Final Nasal Mrsa Not Detected 02/10/19 17:00 Anaerobic Blood Culture - Final Blood Venous Assess/Plan/Problems-Billing Assessment: Patient is a 53yo female with a PMH for DM II, Endocarditis with AVR, morbid obesity, here with new diabetic foot ulcer. Patient post-op L 5th ray amputation 12.30 and will be placed on 4-6 weeks IV antibiotics. - Patient Problems (1) Osteomyelitis Comment: -MRI showed L 5th digit osteomyelitis -appreciate Ortho consult -continue Cefepime and Flagyl; will transition to vanco or dapto upon discharge -appreciate ID consult; plan for total of 4-6 weeks IV abx -PICC in place -cultures all NGTD (2) Neuropathy Comment: -pt with c/o b/l LE neuropathy which is improving with elvia -pt tolerating well -gabapentin to 300 tid (3) Type 2 diabetes mellitus Comment: -better control, BS 130-170's today -continue lantus 25u with SSI and Metformin -resume Xultophy at D/C and F/U Endocrinology (4) Atrial fibrillation Comment: -paryoxysmal -continue Xarelto, metoprolol (5) Anxiety with depression Comment: -poor mood -continue home treatments -will need further optimization outpatient (6) Chronic kidney disease Comment: -stable with Cr at baseline (7) TULIO (obstructive sleep apnea) Comment: -non-compliant with CPAP (8) DVT prophylaxis Comment: -continue xarelto (9) Full code status Code(s): Z78.9 - OTHER SPECIFIED HEALTH STATUS Status and Disposition: Inpatient for full evaluation and treatment of diabetic foot ulcer.
[2019-02-17] MEDS: Vancomycin(*) 1,750 MG in NS 0.9% 500 ML* 500 ML IVPB SCH ×2 (05:48→18:18)
[2019-02-17] MEDS: Insulin LISPRO* 1 UNITS UNIT SUBCUT SCH ×3 (07:58→17:27)
[2019-02-17] MEDS: Gabapentin CAP(*) 300 MG PO SCH ×3 (07:59→20:31)
[2019-02-17] MEDS: FLUoxetine CAP* 20 MG PO SCH (07:59)
[2019-02-17] MEDS: Cholecalciferol TAB* 1000 UNITS PO SCH (07:59)
[2019-02-17] MEDS: metFORMIN* 500 MG TAB PO SCH ×2 (07:59→20:32)
[2019-02-17] MEDS: Metoprolol Succinate XL TAB* 25 MG PO SCH ×2 (07:59→20:32)
[2019-02-17] MEDS: Rivaroxaban TAB(*) 15 MG PO SCH (07:59)
[2019-02-17] MEDS: Lactobacillus Acidophilus* 1 TAB PO SCH (08:00)
--- NOTE | 2019-02-17 16:23 | PN ---
Subjective Date of Service: 02/17/19 Interval History: Ms. Mansfield is doing well today. She is eager for discharge and prefers to go home; she understands we are awaiting insurance auth to determine discharge plan. She continues to deny pain at the amputation site. She has no other complaints today. Family History: Unchanged from Admission Social History: Unchanged from Admission Past Medical History: Unchanged from Admission Objective Active Medications: Acetaminophen (Tylenol Tab*) 650 mg PO Q6H PRN PRN Reason: MILD PAIN or TEMP > 100.4 Last Admin: 02/15/19 21:52 Dose: 650 mg Cholecalciferol (Vitamin D Tab*) 1,000 units PO DAILY [facility] Last Admin: 02/17/19 07:59 Dose: 1,000 units Dextrose (Dextrose 50% Vial 50 Ml*) 25 ml IV PUSH .FOR FS < 60 - SS PRN PRN Reason: FS < 60 Fluoxetine HCl (Prozac Cap*) 20 mg PO DAILY [facility] Last Admin: 02/17/19 07:59 Dose: 20 mg Gabapentin (Neurontin Cap(*)) 300 mg PO TID [facility] Last Admin: 02/17/19 15:19 Dose: 300 mg Heparin Sodium (Porcine) (Heparin Flush Picc/Ml/Cvc(*)) 1 - 3 ml FLUSH 0600, 1800 [facility]; Protocol Last Admin: 02/17/19 11:59 Dose: 1 ml Vancomycin HCl 1,750 mg/ (Sodium Chloride) 500 mls @ 250 mls/hr IVPB Q12H [facility] Last Admin: 02/17/19 05:48 Dose: 250 mls/hr Insulin Glargine (Lantus(*)) 25 units SUBCUT Q24H [facility] Last Admin: 02/16/19 17:12 Dose: 25 unit Insulin Human Lispro (Humalog*) 0 units SUBCUT AC [facility]; Protocol Last Admin: 02/17/19 12:17 Dose: 3 units Lactobacillus Rhamnosus (Lactobacillus Acidophilus*) 1 tab PO DAILY [facility] Last Admin: 02/17/19 08:00 Dose: 1 tab Magnesium Hydroxide (Milk Of Magnesia Liq*) 30 ml PO BID PRN PRN Reason: CONSTIPATION Metformin HCl (Glucophage*) 500 mg PO BID [facility] Last Admin: 02/17/19 07:59 Dose: 500 mg Metoprolol Succinate (Toprol Xl Tab*) 25 mg PO BID [facility] Last Admin: 02/17/19 07:59 Dose: 25 mg Ondansetron HCl (Zofran Inj*) 4 mg IV Q6H PRN PRN Reason: NAUSEA Pharmacy Consult (Vancomycin Per Pharmacy*) 1 note FOLLOW UP .VANC PER PHARMACY [facility]; Protocol Pharmacy Profile Note (Vancomycin Trough Check) 1 note FOLLOW UP 0530 ONE Stop: 02/18/19 05:31 Polyethylene Glycol/Electrolytes (Miralax*) 17 gm PO DAILY PRN PRN Reason: CONSTIPATION Rivaroxaban (Xarelto(*)) 15 mg PO DAILY [facility] Last Admin: 02/17/19 07:59 Dose: 15 mg Senna (Senokot 8.6 Mg Tab*) 1 tab PO DAILY PRN PRN Reason: CONSTIPATION Vital Signs: Temp Pulse Resp BP Pulse Ox 98.3 F 68 20 137/100 98 02/17/19 11:43 02/17/19 11:43 02/17/19 15:19 02/17/19 11:43 02/17/19 11:43 Oxygen Devices in Use Now: None Appearance: Ms. Mansfield is an obese, middle aged white woman who is sitting up in bed. She appears to be in no acute distress. Noted to have some difficulty with movement in bed. Eyes: No Scleral Icterus, PERRLA Ears/Nose/Mouth/Throat: NL Teeth, Lips, Gums, Clear Oropharnyx, Mucous Membranes Moist Neck: NL Appearance and Movements; NL JVP, Trachea Midline Respiratory: Symmetrical Chest Expansion and Respiratory Effort, Clear to Auscultation Cardiovascular: NL Sounds; No Murmurs; No JVD, RRR, No Edema Abdominal: NL Sounds; No Tenderness; No Distention, No Hepatosplenomegaly Extremities: No Edema, No Clubbing, Cyanosis, - - b/l LE with dry, flaking skin. R foot with old 1st digit amputation; L foor s/p L 5th ray amputation with CDI dressing in place to LLE; sensation decreased b/l Neurological: Alert and Oriented x 3 Result Diagrams: 02/16/19 06:03 02/16/19 06:03 Microbiology and Other Data: Microbiology 02/10/19 20:34 Skin and Soft Tissue MRSA/MSSA (PCR - Final Foot Left Mrsa Negative S.aureus Negative Gram Stain - Final 02/11/19 01:10 Nasal Screen MRSA (PCR) - Final Nasal Mrsa Not Detected 02/10/19 17:00 Anaerobic Blood Culture - Final Blood Venous Assess/Plan/Problems-Billing Assessment: Patient is a 53yo female with a PMH for DM II, Endocarditis with AVR, morbid obesity, here with new diabetic foot ulcer. Patient post-op L 5th ray amputation 12.30 and will be placed on 4-6 weeks IV antibiotics. - Patient Problems (1) Osteomyelitis Comment: -MRI showed L 5th digit osteomyelitis -appreciate Ortho consult -d/c Cefepime and Flagyl, start vanco per ID recommendations -appreciate ID consult; plan for total of 4-6 weeks IV abx -PICC in place -cultures all NGTD (2) Neuropathy Comment: -pt with c/o b/l LE neuropathy which is improving with elvia -continue gabapentin to 300 tid (3) Type 2 diabetes mellitus Comment: -controlled, BS 120-180's today -continue lantus 25u with SSI and Metformin -resume Xultophy at D/C and F/U Endocrinology (4) Atrial fibrillation Comment: -paryoxysmal -continue Xarelto, metoprolol (5) Anxiety with depression Comment: -mood improved some -continue home treatments -will need further optimization outpatient (6) Chronic kidney disease Comment: -stable with Cr at baseline (7) TULIO (obstructive sleep apnea) Comment: -non-compliant with CPAP (8) DVT prophylaxis Comment: -continue xarelto (9) Full code status Code(s): Z78.9 - OTHER SPECIFIED HEALTH STATUS Status and Disposition: Inpatient for full evaluation and treatment of diabetic foot ulcer.
[2019-02-17] MEDS: Insulin GLARGINE(*) 1 UNITS UNIT SUBCUT SCH (18:17)
[2019-02-18] MEDS ORDERED: Vancomycin Trough Check NOTE FOLLOW UP ONE (05:30)
[2019-02-18 06:22] LABS: EGFR African American 68.6 (>60); EGFR Non-African American 56.7 (>60)
[2019-02-18 06:29] LABS: Vancomycin Trough 21.4 mcg/mL
[2019-02-18] MEDS: Vancomycin(*) 1,750 MG in NS 0.9% 500 ML* 500 ML IVPB SCH ×3 (07:04→17:29)
[2019-02-18] MEDS: Gabapentin CAP(*) 300 MG PO SCH ×3 (08:41→20:00)
[2019-02-18] MEDS: Lactobacillus Acidophilus* 1 TAB PO SCH (08:41)
[2019-02-18] MEDS: Rivaroxaban TAB(*) 15 MG PO SCH (08:41)
[2019-02-18] MEDS: Insulin LISPRO* 1 UNITS UNIT SUBCUT SCH ×3 (08:41→17:29)
[2019-02-18] MEDS: Metoprolol Succinate XL TAB* 25 MG PO SCH ×2 (08:41→20:00)
[2019-02-18] MEDS: metFORMIN* 500 MG TAB PO SCH ×2 (08:41→20:00)
[2019-02-18] MEDS: Cholecalciferol TAB* 1000 UNITS PO SCH (08:41)
[2019-02-18] MEDS: FLUoxetine CAP* 20 MG PO SCH (08:42)
--- NOTE | 2019-02-18 17:16 | PN ---
Subjective Date of Service: 02/18/19 Interval History: Ms. Mansfield states she doing well today. She denies pain in the L foot. She does have occasional neuropathic pain, but notes this is decreased. She has no other complaints at this time. Family History: Unchanged from Admission Social History: Unchanged from Admission Past Medical History: Unchanged from Admission Objective Active Medications: Acetaminophen (Tylenol Tab*) 650 mg PO Q6H PRN PRN Reason: MILD PAIN or TEMP > 100.4 Last Admin: 02/15/19 21:52 Dose: 650 mg Cholecalciferol (Vitamin D Tab*) 1,000 units PO DAILY [facility] Last Admin: 02/18/19 08:41 Dose: 1,000 units Dextrose (Dextrose 50% Vial 50 Ml*) 25 ml IV PUSH .FOR FS < 60 - SS PRN PRN Reason: FS < 60 Fluoxetine HCl (Prozac Cap*) 20 mg PO DAILY [facility] Last Admin: 02/18/19 08:42 Dose: 20 mg Gabapentin (Neurontin Cap(*)) 300 mg PO TID [facility] Last Admin: 02/18/19 13:27 Dose: 300 mg Heparin Sodium (Porcine) (Heparin Flush Picc/Ml/Cvc(*)) 1 - 3 ml FLUSH 0600, 1800 [facility]; Protocol Last Admin: 02/18/19 11:13 Dose: 1 ml Vancomycin HCl 1,750 mg/ (Sodium Chloride) 500 mls @ 250 mls/hr IVPB Q12H [facility] Last Admin: 02/18/19 07:57 Dose: 250 mls/hr Insulin Glargine (Lantus(*)) 25 units SUBCUT Q24H [facility] Last Admin: 02/17/19 18:17 Dose: 25 unit Insulin Human Lispro (Humalog*) 0 units SUBCUT AC [facility]; Protocol Last Admin: 02/18/19 13:26 Dose: 3 units Lactobacillus Rhamnosus (Lactobacillus Acidophilus*) 1 tab PO DAILY [facility] Last Admin: 02/18/19 08:41 Dose: 1 tab Magnesium Hydroxide (Milk Of Magnesia Liq*) 30 ml PO BID PRN PRN Reason: CONSTIPATION Metformin HCl (Glucophage*) 500 mg PO BID [facility] Last Admin: 02/18/19 08:41 Dose: 500 mg Metoprolol Succinate (Toprol Xl Tab*) 25 mg PO BID [facility] Last Admin: 02/18/19 08:41 Dose: 25 mg Ondansetron HCl (Zofran Inj*) 4 mg IV Q6H PRN PRN Reason: NAUSEA Pharmacy Consult (Vancomycin Per Pharmacy*) 1 note FOLLOW UP .VANC PER PHARMACY [facility]; Protocol Polyethylene Glycol/Electrolytes (Miralax*) 17 gm PO DAILY PRN PRN Reason: CONSTIPATION Rivaroxaban (Xarelto(*)) 15 mg PO DAILY [facility] Last Admin: 02/18/19 08:41 Dose: 15 mg Senna (Senokot 8.6 Mg Tab*) 1 tab PO DAILY PRN PRN Reason: CONSTIPATION Vital Signs: Temp Pulse Resp BP Pulse Ox 97.8 F 72 16 129/93 94 02/18/19 15:35 02/18/19 15:35 02/18/19 15:49 02/18/19 15:35 02/18/19 15:35 Oxygen Devices in Use Now: None Appearance: Ms. Mansfield is an obese middle-aged white female who is sitting in chair with LE at floor. She is breathing comfortably and appears to be in no acute distress. Eyes: No Scleral Icterus, PERRLA Ears/Nose/Mouth/Throat: NL Teeth, Lips, Gums, Clear Oropharnyx, Mucous Membranes Moist Neck: NL Appearance and Movements; NL JVP, Trachea Midline Respiratory: Symmetrical Chest Expansion and Respiratory Effort, Clear to Auscultation Cardiovascular: NL Sounds; No Murmurs; No JVD, RRR, No Edema Abdominal: NL Sounds; No Tenderness; No Distention, No Hepatosplenomegaly Extremities: No Edema, No Clubbing, Cyanosis, - - s/p L 5th ray amputation with CDI dressing in place to LLE; sensation diminished, but equal; able to move distal digits Neurological: Alert and Oriented x 3 Result Diagrams: 02/16/19 06:03 02/18/19 05:58 Microbiology and Other Data: Microbiology 02/10/19 20:34 Skin and Soft Tissue MRSA/MSSA (PCR - Final Foot Left Mrsa Negative S.aureus Negative Gram Stain - Final 02/11/19 01:10 Nasal Screen MRSA (PCR) - Final Nasal Mrsa Not Detected 02/10/19 17:00 Anaerobic Blood Culture - Final Blood Venous Assess/Plan/Problems-Billing Assessment: Patient is a 53yo female with a PMH for DM II, Endocarditis with AVR, morbid obesity, here with new diabetic foot ulcer. Patient post-op L 5th ray amputation 12.30 and will be placed on 4-6 weeks IV antibiotics. - Patient Problems (1) Osteomyelitis Comment: -MRI showed L 5th digit osteomyelitis -appreciate Ortho consult -continue Vanco per ID recommendations -appreciate ID consult; plan for total of 4-6 weeks IV abx -PICC in place -cultures all NGTD (2) Neuropathy Comment: -pt with c/o b/l LE neuropathy which is improving with elvia -continue gabapentin to 300 tid (3) Type 2 diabetes mellitus Comment: -controlled, BS 140-170's today -continue lantus 25u with SSI and Metformin -resume Xultophy at D/C and F/U Endocrinology (4) Atrial fibrillation Comment: -paryoxysmal -continue Xarelto, metoprolol (5) Anxiety with depression Comment: -mood improved some -continue home treatments -will need further optimization outpatient (6) Chronic kidney disease Comment: -stable with Cr at baseline (7) TULIO (obstructive sleep apnea) Comment: -non-compliant with CPAP (8) DVT prophylaxis Comment: -continue xarelto (9) Full code status Code(s): Z78.9 - OTHER SPECIFIED HEALTH STATUS Status and Disposition: Inpatient for full evaluation and treatment of diabetic foot ulcer.
[2019-02-18] MEDS: Insulin GLARGINE(*) 1 UNITS UNIT SUBCUT SCH (17:30)
[2019-02-19] MEDS: Vancomycin(*) 1,750 MG in NS 0.9% 500 ML* 500 ML IVPB SCH ×2 (06:07→17:33)
[2019-02-19] MEDS: Lactobacillus Acidophilus* 1 TAB PO SCH (08:36)
[2019-02-19] MEDS: Metoprolol Succinate XL TAB* 25 MG PO SCH ×2 (08:36→20:29)
[2019-02-19] MEDS: metFORMIN* 500 MG TAB PO SCH ×2 (08:37→20:29)
[2019-02-19] MEDS: FLUoxetine CAP* 20 MG PO SCH (08:37)
[2019-02-19] MEDS: Cholecalciferol TAB* 1000 UNITS PO SCH (08:37)
[2019-02-19] MEDS: Rivaroxaban TAB(*) 15 MG PO SCH (08:38)
[2019-02-19] MEDS: Gabapentin CAP(*) 300 MG PO SCH ×3 (08:38→20:29)
[2019-02-19] MEDS: Insulin LISPRO* 1 UNITS UNIT SUBCUT SCH ×3 (08:39→17:33)
--- NOTE | 2019-02-19 10:29 | PN ---
Progress Note - Progress Note Date of Service: 02/19/19 SOAP: Subjective: CC: Left foot infection HPI: Ms. Mansfield is a 53 yo female with PMH significant for hx AV endocarditis s/p AVR, osteomyelitis s/p right 1st toe amp, DM2, peripheral neuropathy, diabetic retinopathy, P afib, HTN, TULIO; who presented to the hospital with an ulcer on the left foot. She underwent a left 5th ray amputation on 02/13/20. Denies fever , chills, nausea, vomiting, diarrhea or left foot pain. Objective: Vital Signs - 8 hr 02/19/19 02/19/19 02/19/19 02:45 07:44 08:00 Temperature 98.4 F 97.7 F Pulse Rate 65 65 Respiratory 20 18 17 Rate Blood Pressure 152/67 158/79 (mmHg) O2 Sat by Pulse 92 95 Oximetry Physical Exam: General: NAD, laying in bed Neurological: Alert and Oriented x4 HEENT: Moist MM, no thrush Cardiovascular: Heart rate regular, no murmur Respiratory: Lung sounds clear bilateral Skin: No rash. DSG to left LE clean, dry and intact Laboratory Last Values WBC 7.7 10^3/uL (3.5-10.8) 02/16/19 06:03 RBC 3.80 10^6 /uL (3.70-4.87) 02/16/19 06:03 Hgb 10.2 g/dL (12.0-16.0) L 02/16/19 06:03 Hct 31 % (35-47) L 02/16/19 06:03 MCV 81 fL (80-97) 02/16/19 06:03 MCH 27 pg (27-31) 02/16/19 06:03 MCHC 33 g/dL (31-36) 02/16/19 06:03 RDW 14 % (10-15) 02/16/19 06:03 Plt Count 299 10^3/uL (150-450) 02/16/19 06:03 MPV 8.0 fL (7.4-10.4) 02/16/19 06:03 Neut % (Auto) 66.9 % 02/16/19 06:03 Lymph % (Auto) 17.6 % 02/16/19 06:03 [place] % (Auto) 11.7 % 02/16/19 06:03 Eos % (Auto) 3.1 % 02/16/19 06:03 Baso % (Auto) 0.7 % 02/16/19 06:03 Absolute Neuts (auto) 5.2 10^3/ul (1.5-7.7) 02/16/19 06:03 Absolute Lymphs (auto) 1.4 10^3/ul (1.0-4.8) 02/16/19 06:03 Absolute Monos (auto) 0.9 10^3/ul (0-0.8) H 02/16/19 06:03 Absolute Eos (auto) 0.2 10^3/ul (0-0.6) 02/16/19 06:03 Absolute Basos (auto) 0.1 10^3/ul (0-0.2) 02/16/19 06:03 Absolute Nucleated RBC 0.0 10^3/ul 02/16/19 06:03 Nucleated RBC % 0.0 02/16/19 06:03 Sodium 140 mmol/L (135-145) 02/16/19 06:03 Potassium 3.8 mmol/L (3.5-5.0) 02/16/19 06:03 Chloride 109 mmol/L (101-111) 02/16/19 06:03 Carbon Dioxide 26 mmol/L (22-32) 02/16/19 06:03 Anion Gap 5 mmol/L (2-11) 02/16/19 06:03 BUN 11 mg/dL (6-24) 02/18/19 05:58 Creatinine 1.02 mg/dL (0.51-0.95) H 02/18/19 05:58 Est GFR ( Amer) 68.6 (>60) 02/18/19 05:58 Est GFR (Non-Af Amer) 56.7 (>60) 02/18/19 05:58 BUN/Creatinine Ratio 11.8 (8-20) 02/16/19 06:03 Glucose 139 mg/dL (70-100) H 02/16/19 06:03 POC Glucose (mg/dL) 131 mg/dL (70-100) H 02/19/19 07:37 Hemoglobin A1c 9.6 % (4.0-5.6) H 02/11/19 06:21 Lactic Acid 1.8 mmol/L (0.5-2.0) 02/10/19 17:00 Calcium 8.2 mg/dL (8.6-10.3) L 02/16/19 06:03 Magnesium 1.9 mg/dL (1.9-2.7) 02/17/19 09:35 Total Bilirubin 0.40 mg/dL (0.2-1.0) 02/10/19 17:00 AST 10 U/L (13-39) L 02/10/19 17:00 ALT 13 U/L (7-52) 02/10/19 17:00 Alkaline Phosphatase 111 U/L (34-104) H 02/10/19 17:00 C-Reactive Protein 93.64 mg/L (<8.01) H 02/16/19 06:03 Total Protein 7.6 g/dL (6.4-8.9) 02/10/19 17:00 Albumin 3.5 g/dL (3.2-5.2) 02/10/19 17:00 Globulin 4.1 g/dL (2-4) H 02/10/19 17:00 Albumin/Globulin Ratio 0.9 (1-3) L 02/10/19 17:00 Vancomycin Trough 21.4 mcg/mL 02/18/19 05:58 Microbiology 02/12/19 13:00 Skin and Soft Tissue MRSA/MSSA (PCR - Final Foot Left Mrsa Negative S.aureus Negative Gram Stain - Final Wound Culture - Final Normal Fritz 02/12/19 13:00 Anaerobic Culture - Final Wound 02/10/19 17:00 Aerobic Blood Culture - Final Blood Venous No Growth Day 5 Anaerobic Blood Culture - Final No Growth Day 5 02/10/19 17:00 Aerobic Blood Culture - Final Blood Venous No Growth Day 5 Anaerobic Blood Culture - Final 02/10/19 20:34 Skin and Soft Tissue MRSA/MSSA (PCR - Final Foot Left Mrsa Negative S.aureus Negative Gram Stain - Final Wound Culture - Final Normal Fritz 02/11/19 01:10 Nasal Screen MRSA (PCR) - Final Nasal Mrsa Not Detected Assessment: 1. Left foot diabetic ulcer with cellulitis. Plain film xray with osteomyelitis. Initial wound cultures with normal fritz. MRI of the left foot with left 5th metatarsal and proximal phalanx osteomyelitis. S/P left 5th ray amputation on 02/13/20. Cultures from the OR with normal fritz. Afebrile and no leukocytosis. Blood cultures with no growth on day 5. Bone bx and tissue pathology from OR with cellulitis and reactive changes in the bone 2. DM2. With DM foot ulcer present on admission, peripheral neuropathy, and retinopathy. 3. Morbid obesity. BMI 57.2. With TULIO, non compliant with CPAP. 4. History of right 1st toe osteomyelitis. S/P right 1st ray amputation. 5. Hx endocarditis. S/P AVR Plan: Continue Vancomycin, trough goal 10-15, day 714. Has had a PICC line placed. Will need weekly labs while on IV ABX: CBC, CMP, and CRP. She will need to have followup with ID outpatient in 1-2 weeks.
--- NOTE | 2019-02-19 14:56 | PN ---
Progress Note - Progress Note Date of Service: 02/19/19 SOAP: Subjective: []Pt seen at bedside. She is feeling well without fever or chills. She has neuropathy of BL LE, no pain reported. Objective: []Gen: NAD LLE: Dressing changed, incision well approximated without discharge. Minimal erythema along the mid portion of incision without proximal tracking and without tenderness or fluctuance. Calves supple and nontender Assessment: [] [S/P 5th ray amp] Plan: Vanco per ID Heel WB LLE New xeroform/ 4x4, kerlix, rina dressing placed. Will monitor while in house with daily dressing changes. Vital Signs Temp 97.6 F 02/19/19 11:15 Pulse 63 02/19/19 11:15 Resp 18 02/19/19 14:43 BP 129/58 02/19/19 11:15 Pulse Ox 93 02/19/19 11:15 Intake & Output 02/18/19 02/19/19 02/19/19 18:59 06:59 18:59 Intake Total 1142 1485 1310 Output Total 0 Balance 1142 1485 1310 Intake: IV Fluids 25 25 25 ABX - VANCOMYCIN 25 NS (0.9%) 25 25 IVPB 517 500 565 ABX - VANCOMYCIN 517 500 565 Oral 600 960 720 Output: Urine 0 Other: Date of Last Bowel 02/18/2019 Movement # Bowel Movements 0 Laboratory Last Values WBC 7.7 10^3/uL (3.5-10.8) 02/16/19 06:03 RBC 3.80 10^6 /uL (3.70-4.87) 02/16/19 06:03 Hgb 10.2 g/dL (12.0-16.0) L 02/16/19 06:03 Hct 31 % (35-47) L 02/16/19 06:03 MCV 81 fL (80-97) 02/16/19 06:03 MCH 27 pg (27-31) 02/16/19 06:03 MCHC 33 g/dL (31-36) 02/16/19 06:03 RDW 14 % (10-15) 02/16/19 06:03 Plt Count 299 10^3/uL (150-450) 02/16/19 06:03 MPV 8.0 fL (7.4-10.4) 02/16/19 06:03 Neut % (Auto) 66.9 % 02/16/19 06:03 Lymph % (Auto) 17.6 % 02/16/19 06:03 [place] % (Auto) 11.7 % 02/16/19 06:03 Eos % (Auto) 3.1 % 02/16/19 06:03 Baso % (Auto) 0.7 % 02/16/19 06:03 Absolute Neuts (auto) 5.2 10^3/ul (1.5-7.7) 02/16/19 06:03 Absolute Lymphs (auto) 1.4 10^3/ul (1.0-4.8) 02/16/19 06:03 Absolute Monos (auto) 0.9 10^3/ul (0-0.8) H 02/16/19 06:03 Absolute Eos (auto) 0.2 10^3/ul (0-0.6) 02/16/19 06:03 Absolute Basos (auto) 0.1 10^3/ul (0-0.2) 02/16/19 06:03 Absolute Nucleated RBC 0.0 10^3/ul 02/16/19 06:03 Nucleated RBC % 0.0 02/16/19 06:03 Sodium 140 mmol/L (135-145) 02/16/19 06:03 Potassium 3.8 mmol/L (3.5-5.0) 02/16/19 06:03 Chloride 109 mmol/L (101-111) 02/16/19 06:03 Carbon Dioxide 26 mmol/L (22-32) 02/16/19 06:03 Anion Gap 5 mmol/L (2-11) 02/16/19 06:03 BUN 11 mg/dL (6-24) 02/18/19 05:58 Creatinine 1.02 mg/dL (0.51-0.95) H 02/18/19 05:58 Est GFR ( Amer) 68.6 (>60) 02/18/19 05:58 Est GFR (Non-Af Amer) 56.7 (>60) 02/18/19 05:58 BUN/Creatinine Ratio 11.8 (8-20) 02/16/19 06:03 Glucose 139 mg/dL (70-100) H 02/16/19 06:03 POC Glucose (mg/dL) 188 mg/dL (70-100) H 02/19/19 12:06 Hemoglobin A1c 9.6 % (4.0-5.6) H 02/11/19 06:21 Lactic Acid 1.8 mmol/L (0.5-2.0) 02/10/19 17:00 Calcium 8.2 mg/dL (8.6-10.3) L 02/16/19 06:03 Magnesium 1.9 mg/dL (1.9-2.7) 02/17/19 09:35 Total Bilirubin 0.40 mg/dL (0.2-1.0) 02/10/19 17:00 AST 10 U/L (13-39) L 02/10/19 17:00 ALT 13 U/L (7-52) 02/10/19 17:00 Alkaline Phosphatase 111 U/L (34-104) H 02/10/19 17:00 C-Reactive Protein 93.64 mg/L (<8.01) H 02/16/19 06:03 Total Protein 7.6 g/dL (6.4-8.9) 02/10/19 17:00 Albumin 3.5 g/dL (3.2-5.2) 02/10/19 17:00 Globulin 4.1 g/dL (2-4) H 02/10/19 17:00 Albumin/Globulin Ratio 0.9 (1-3) L 02/10/19 17:00 Vancomycin Trough 21.4 mcg/mL 02/18/19 05:58
[2019-02-19] MEDS: Insulin GLARGINE(*) 1 UNITS UNIT SUBCUT SCH (17:32)
--- NOTE | 2019-02-19 17:43 | PN ---
Subjective Date of Service: 02/19/19 Interval History: Denies any complaints.Denies pain LE Family History: Unchanged from Admission Social History: Unchanged from Admission Past Medical History: Unchanged from Admission Objective Active Medications: Acetaminophen (Tylenol Tab*) 650 mg PO Q6H PRN PRN Reason: MILD PAIN or TEMP > 100.4 Last Admin: 02/15/19 21:52 Dose: 650 mg Cholecalciferol (Vitamin D Tab*) 1,000 units PO DAILY [facility] Last Admin: 02/19/19 08:37 Dose: 1,000 units Dextrose (Dextrose 50% Vial 50 Ml*) 25 ml IV PUSH .FOR FS < 60 - SS PRN PRN Reason: FS < 60 Fluoxetine HCl (Prozac Cap*) 20 mg PO DAILY [facility] Last Admin: 02/19/19 08:37 Dose: 20 mg Gabapentin (Neurontin Cap(*)) 300 mg PO TID [facility] Last Admin: 02/19/19 14:43 Dose: 300 mg Heparin Sodium (Porcine) (Heparin Flush Picc/Ml/Cvc(*)) 1 - 3 ml FLUSH 0600, 1800 [facility]; Protocol Last Admin: 02/19/19 07:28 Dose: Not Given Vancomycin HCl 1,750 mg/ (Sodium Chloride) 500 mls @ 250 mls/hr IVPB Q12H [facility] Last Admin: 02/19/19 17:33 Dose: 250 mls/hr Insulin Glargine (Lantus(*)) 25 units SUBCUT Q24H [facility] Last Admin: 02/19/19 17:32 Dose: 25 unit Insulin Human Lispro (Humalog*) 0 units SUBCUT AC [facility]; Protocol Last Admin: 02/19/19 17:33 Dose: 2 units Lactobacillus Rhamnosus (Lactobacillus Acidophilus*) 1 tab PO DAILY [facility] Last Admin: 02/19/19 08:36 Dose: 1 tab Magnesium Hydroxide (Milk Of Magnesia Liq*) 30 ml PO BID PRN PRN Reason: CONSTIPATION Metformin HCl (Glucophage*) 500 mg PO BID [facility] Last Admin: 02/19/19 08:37 Dose: 500 mg Metoprolol Succinate (Toprol Xl Tab*) 25 mg PO BID [facility] Last Admin: 02/19/19 08:36 Dose: 25 mg Ondansetron HCl (Zofran Inj*) 4 mg IV Q6H PRN PRN Reason: NAUSEA Pharmacy Consult (Vancomycin Per Pharmacy*) 1 note FOLLOW UP .VANC PER PHARMACY [facility]; Protocol Polyethylene Glycol/Electrolytes (Miralax*) 17 gm PO DAILY PRN PRN Reason: CONSTIPATION Rivaroxaban (Xarelto(*)) 15 mg PO DAILY [facility] Last Admin: 02/19/19 08:38 Dose: 15 mg Senna (Senokot 8.6 Mg Tab*) 1 tab PO DAILY PRN PRN Reason: CONSTIPATION Vital Signs - 8 hr 02/19/19 02/19/19 02/19/19 11:15 12:00 14:43 Temperature 97.6 F Pulse Rate 63 Respiratory 18 17 18 Rate Blood Pressure 129/58 (mmHg) O2 Sat by Pulse 93 Oximetry 02/19/19 02/19/19 02/19/19 15:15 16:00 17:04 Temperature 97.7 F Pulse Rate 67 Respiratory 16 17 Rate Blood Pressure 159/72 (mmHg) O2 Sat by Pulse 98 98 Oximetry Oxygen Devices in Use Now: None Eyes: No Scleral Icterus Ears/Nose/Mouth/Throat: NL Teeth, Lips, Gums Neck: NL Appearance and Movements; NL JVP Respiratory: Symmetrical Chest Expansion and Respiratory Effort Cardiovascular: NL Sounds; No Murmurs; No JVD Abdominal: NL Sounds; No Tenderness; No Distention Extremities: No Edema Neurological: Alert and Oriented x 3 Result Diagrams: 02/16/19 06:03 02/18/19 05:58 Microbiology and Other Data: Microbiology 02/10/19 20:34 Skin and Soft Tissue MRSA/MSSA (PCR - Final Foot Left Mrsa Negative S.aureus Negative Gram Stain - Final 02/11/19 01:10 Nasal Screen MRSA (PCR) - Final Nasal Mrsa Not Detected 02/10/19 17:00 Anaerobic Blood Culture - Final Blood Venous Assess/Plan/Problems-Billing Assessment: Patient is a 53yo female with a PMH for DM II, Endocarditis with AVR, morbid obesity, here with new diabetic foot ulcer. Patient post-op L 5th ray amputation 12.30 and will be placed on 4-6 weeks IV antibiotics. - Patient Problems (1) Osteomyelitis Current Visit: No Status: Acute Code(s): M86.9 - OSTEOMYELITIS, UNSPECIFIED SNOMED Code(s): 96359981 Comment: -MRI showed L 5th digit osteomyelitis -appreciate Ortho consult -continue Vanco per ID recommendations -appreciate ID consult; plan for total of 4-6 weeks IV abx -PICC in place -cultures all NGTD -Arranging outpt antibiotics.Discussed with case management (2) Chronic kidney disease Current Visit: Yes Status: Acute Code(s): N18.9 - CHRONIC KIDNEY DISEASE, UNSPECIFIED SNOMED Code(s): 734530126 Comment: -stable with Cr at baseline (3) Full code status Current Visit: Yes Status: Acute Code(s): Z78.9 - OTHER SPECIFIED HEALTH STATUS SNOMED Code(s): 077073715 (4) Neuropathy Current Visit: Yes Status: Acute Code(s): G62.9 - POLYNEUROPATHY, UNSPECIFIED SNOMED Code(s): 106611468 Comment: -pt with c/o b/l LE neuropathy which is improving with elvia -continue gabapentin to 300 tid (5) Anxiety with depression Current Visit: No Status: Acute Comment: -mood improved some -continue home treatments -will need further optimization outpatient (6) Atrial fibrillation Current Visit: No Status: Acute Code(s): I48.91 - UNSPECIFIED ATRIAL FIBRILLATION SNOMED Code(s): 14684181 Comment: -paryoxysmal -continue Xarelto, metoprolol (7) DVT prophylaxis Current Visit: No Status: Acute Priority: High Onset Date: 03/16/14 Code (s): [id number] - SNOMED Code(s): 806116402 Comment: -continue xarelto (8) TULIO (obstructive sleep apnea) Current Visit: No Status: Acute Code(s): G47.33 - OBSTRUCTIVE SLEEP APNEA ( ADULT) (PEDIATRIC) SNOMED Code(s): 66622101 Comment: -non-compliant with CPAP Status and Disposition: PT/OT
[2019-02-20 05:29] LABS: ABS Basophils 0.1 10^3/ul (0-0.2); ABS Eosinophils 0.2 10^3/ul (0-0.6); ABS Lymphocytes 1.4 10^3/ul (1.0-4.8); ABS Monocytes 0.7 10^3/ul (0-0.8); ABS Neutrophils 4.3 10^3/ul (1.5-7.7); Eosinophil % 3.6 %; Hematocrit 31 % (35-47); Lymphocyte % 20.4 %; Mean Corpuscular HGB Conc 33 g/dL (31-36); Mean Corpuscular Hemoglobin 27 pg (27-31); Mean Corpuscular Volume 81 fL (80-97); Mean Platelet Volume 7.7 fL (7.4-10.4); Platelet Count 348 10^3/uL (150-450); Red Blood Count 3.76 10^6 /uL (3.70-4.87); Red Cell Distribution Width 14 % (10-15); White Blood Count 6.7 10^3/uL (3.5-10.8)
[2019-02-20] MEDS: Vancomycin(*) 1,750 MG in NS 0.9% 500 ML* 500 ML IVPB SCH (05:39)
[2019-02-20 05:45] LABS: BUN/Creatinine Ratio 11.1 (8-20); Calcium 8.2 mg/dL (8.6-10.3); EGFR African American 64.2 (>60); EGFR Non-African American 53.1 (>60); Potassium 4.1 mmol/L (3.5-5.0)
[2019-02-20] MEDS: Rivaroxaban TAB(*) 15 MG PO SCH (08:00)
[2019-02-20] MEDS: metFORMIN* 500 MG TAB PO SCH (08:00)
[2019-02-20] MEDS: Insulin LISPRO* 1 UNITS UNIT SUBCUT SCH ×2 (08:00→12:25)
[2019-02-20] MEDS: Gabapentin CAP(*) 300 MG PO SCH ×2 (08:01→13:51)
[2019-02-20] MEDS: Metoprolol Succinate XL TAB* 25 MG PO SCH (08:01)
[2019-02-20] MEDS: Cholecalciferol TAB* 1000 UNITS PO SCH (08:01)
[2019-02-20] MEDS: FLUoxetine CAP* 20 MG PO SCH (08:02)
[2019-02-20] MEDS: Lactobacillus Acidophilus* 1 TAB PO SCH (08:03)
--- NOTE | 2019-02-20 10:12 | PN ---
Progress Note - Progress Note Date of Service: 02/20/19 SOAP: Subjective: CC: Left foot infection HPI: Ms. Mansfield is a 53 yo female with PMH significant for hx AV endocarditis s/p AVR, osteomyelitis s/p right 1st toe amp, DM2, peripheral neuropathy, diabetic retinopathy, P afib, HTN, TULIO; who presented to the hospital with an ulcer on the left foot. She underwent a left 5th ray amputation on 02/13/20. Denies fever , chills, nausea, vomiting, diarrhea or left foot pain. Objective: Vital Signs - 8 hr 02/20/19 02/20/19 02/20/19 03:19 07:15 08:00 Temperature 97.6 F 97.6 F Pulse Rate 68 68 Respiratory 20 18 18 Rate Blood Pressure 153/72 137/62 (mmHg) O2 Sat by Pulse 93 97 Oximetry Physical Exam: General: NAD, laying in bed Neurological: Alert and Oriented x4 HEENT: Moist MM, no thrush Cardiovascular: Heart rate regular, no murmur Respiratory: Lung sounds clear bilateral Skin: No rash. DSG to left LE clean, dry and intact Laboratory Results - last 24 hr 02/19/19 02/19/19 02/20/19 12:06 17:15 05:20 WBC 6.7 RBC 3.76 Hgb 10.0 L Hct 31 L MCV 81 MCH 27 MCHC 33 RDW 14 Plt Count 348 MPV 7.7 Neut % (Auto) 64.1 Lymph % (Auto) 20.4 [place] % (Auto) 10.5 Eos % (Auto) 3.6 Baso % (Auto) 1.4 Absolute Neuts (auto) 4.3 Absolute Lymphs (auto) 1.4 Absolute Monos (auto) 0.7 Absolute Eos (auto) 0.2 Absolute Basos (auto) 0.1 Absolute Nucleated RBC 0.0 Nucleated RBC % 0.0 POC Glucose (mg/dL) 188 H 150 H 02/20/19 02/20/19 05:20 07:27 Sodium 140 Potassium 4.1 Chloride 108 Carbon Dioxide 28 Anion Gap 4 BUN 12 Creatinine 1.08 H Est GFR ( Amer) 64.2 Est GFR (Non-Af Amer) 53.1 BUN/Creatinine Ratio 11.1 Glucose 125 H POC Glucose (mg/dL) 132 H Calcium 8.2 L Microbiology 02/12/19 13:00 Skin and Soft Tissue MRSA/MSSA (PCR - Final Foot Left Mrsa Negative S.aureus Negative Gram Stain - Final Wound Culture - Final Normal Fritz 02/12/19 13:00 Anaerobic Culture - Final Wound 02/10/19 17:00 Aerobic Blood Culture - Final Blood Venous No Growth Day 5 Anaerobic Blood Culture - Final No Growth Day 5 02/10/19 17:00 Aerobic Blood Culture - Final Blood Venous No Growth Day 5 Anaerobic Blood Culture - Final 02/10/19 20:34 Skin and Soft Tissue MRSA/MSSA (PCR - Final Foot Left Mrsa Negative S.aureus Negative Gram Stain - Final Wound Culture - Final Normal Fritz 02/11/19 01:10 Nasal Screen MRSA (PCR) - Final Nasal Mrsa Not Detected Assessment: 1. Left foot diabetic ulcer with cellulitis. Plain film xray with osteomyelitis. Initial wound cultures with normal fritz. MRI of the left foot with left 5th metatarsal and proximal phalanx osteomyelitis. S/P left 5th ray amputation on 02/13/20. Cultures from the OR with normal fritz. Afebrile and no leukocytosis. Blood cultures with no growth on day 5. Bone bx and tissue pathology from OR with cellulitis and reactive changes in the bone 2. DM2. With DM foot ulcer present on admission, peripheral neuropathy, and retinopathy. 3. Morbid obesity. BMI 57.2. With TULIO, non compliant with CPAP. 4. History of right 1st toe osteomyelitis. S/P right 1st ray amputation. 5. Hx endocarditis. S/P AVR Plan: Continue Vancomycin, trough goal 10-15, day 8/14. Has had a PICC line placed. Will need weekly labs while on IV ABX: CBC, CMP, CRP, and vanco trough. She will need to have followup with ID outpatient in 1-2 weeks. 25 minutes floor time: >50% spent with patient and discussing continued course of IV ABX, need for followup, and when to call the office (fever, diarrhea, rash, or concerns with the wound).
[2019-02-20 12:22] VITALS: BP 120/64
--- NOTE | 2019-02-20 13:34 | PN ---
Progress Note - Progress Note Date of Service: 02/20/19 SOAP: Subjective: []Pt seen at bedside. She feels well without complaints. Denies CP, SOB, dizziness, nausea, fever, chills, foot pain Objective: []Gen: NAD, nontoxic appearing LLE: Dressing changed, incision well approximated without discharge. Minimal erythema along the mid portion of incision without proximal tracking and without tenderness or fluctuance. There is mild maceration of the incision distally. Calves supple and nontender Assessment: [] [S/P 5th ray amp] Plan: Vanco per ID NWB LLE 4x4, kerlix, rina dressing placed. Discussed with allen Boogie to discharge and f/u with him in the office next week Vital Signs Temp 97.9 F 02/20/19 11:15 Pulse 71 02/20/19 11:15 Resp 18 02/20/19 11:15 BP 120/64 02/20/19 11:15 Pulse Ox 96 02/20/19 11:15 Intake & Output 02/19/19 02/20/19 02/20/19 18:59 06:59 18:59 Intake Total 1490 1070 1320 Balance 1490 1070 1320 Intake: IV Fluids 25 70 ABX - VANCOMYCIN 70 NS (0.9%) 25 IVPB 565 1000 ABX - VANCOMYCIN 565 1000 Oral 900 0 1320 Other: Estimated Void Medium Date of Last Bowel 02/18/2019 02/20/2019 Movement # Bowel Movements 0 1 Estimated Stool Amount Medium # Voids 1 Laboratory Last Values WBC 6.7 10^3/uL (3.5-10.8) 02/20/19 05:20 RBC 3.76 10^6 /uL (3.70-4.87) 02/20/19 05:20 Hgb 10.0 g/dL (12.0-16.0) L 02/20/19 05:20 Hct 31 % (35-47) L 02/20/19 05:20 MCV 81 fL (80-97) 02/20/19 05:20 MCH 27 pg (27-31) 02/20/19 05:20 MCHC 33 g/dL (31-36) 02/20/19 05:20 RDW 14 % (10-15) 02/20/19 05:20 Plt Count 348 10^3/uL (150-450) 02/20/19 05:20 MPV 7.7 fL (7.4-10.4) 02/20/19 05:20 Neut % (Auto) 64.1 % 02/20/19 05:20 Lymph % (Auto) 20.4 % 02/20/19 05:20 Carroll % (Auto) 10.5 % 02/20/19 05:20 Eos % (Auto) 3.6 % 02/20/19 05:20 Baso % (Auto) 1.4 % 02/20/19 05:20 Absolute Neuts (auto) 4.3 10^3/ul (1.5-7.7) 02/20/19 05:20 Absolute Lymphs (auto) 1.4 10^3/ul (1.0-4.8) 02/20/19 05:20 Absolute Monos (auto) 0.7 10^3/ul (0-0.8) 02/20/19 05:20 Absolute Eos (auto) 0.2 10^3/ul (0-0.6) 02/20/19 05:20 Absolute Basos (auto) 0.1 10^3/ul (0-0.2) 02/20/19 05:20 Absolute Nucleated RBC 0.0 10^3/ul 02/20/19 05:20 Nucleated RBC % 0.0 02/20/19 05:20 Sodium 140 mmol/L (135-145) 02/20/19 05:20 Potassium 4.1 mmol/L (3.5-5.0) 02/20/19 05:20 Chloride 108 mmol/L (101-111) 02/20/19 05:20 Carbon Dioxide 28 mmol/L (22-32) 02/20/19 05:20 Anion Gap 4 mmol/L (2-11) 02/20/19 05:20 BUN 12 mg/dL (6-24) 02/20/19 05:20 Creatinine 1.08 mg/dL (0.51-0.95) H 02/20/19 05:20 Est GFR ( Amer) 64.2 (>60) 02/20/19 05:20 Est GFR (Non-Af Amer) 53.1 (>60) 02/20/19 05:20 BUN/Creatinine Ratio 11.1 (8-20) 02/20/19 05:20 Glucose 125 mg/dL (70-100) H 02/20/19 05:20 POC Glucose (mg/dL) 188 mg/dL (70-100) H 02/20/19 12:19 Hemoglobin A1c 9.6 % (4.0-5.6) H 02/11/19 06:21 Lactic Acid 1.8 mmol/L (0.5-2.0) 02/10/19 17:00 Calcium 8.2 mg/dL (8.6-10.3) L 02/20/19 05:20 Magnesium 1.9 mg/dL (1.9-2.7) 02/17/19 09:35 Total Bilirubin 0.40 mg/dL (0.2-1.0) 02/10/19 17:00 AST 10 U/L (13-39) L 02/10/19 17:00 ALT 13 U/L (7-52) 02/10/19 17:00 Alkaline Phosphatase 111 U/L (34-104) H 02/10/19 17:00 C-Reactive Protein 93.64 mg/L (<8.01) H 02/16/19 06:03 Total Protein 7.6 g/dL (6.4-8.9) 02/10/19 17:00 Albumin 3.5 g/dL (3.2-5.2) 02/10/19 17:00 Globulin 4.1 g/dL (2-4) H 02/10/19 17:00 Albumin/Globulin Ratio 0.9 (1-3) L 02/10/19 17:00 Vancomycin Trough 21.4 mcg/mL 02/18/19 05:58 =
--- NOTE | 2019-02-20 18:52 | DS ---
ADDENDUM NOW INCLUDED ON THIS REPORT DISCHARGE SUMMARY: DATE OF ADMISSION: 02/10/19 DATE OF DISCHARGE: 02/20/19 PRIMARY DIAGNOSIS: Osteomyelitis. SECONDARY DIAGNOSES: 1. Endocarditis. 2. Osteomyelitis. 3. 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 4. Paroxysmal atrial fibrillation. 5. Hypertension. 6. Obstructive sleep apnea. 7. First right ray amputation. 8. Rotator cuff repair. 9. Hysterectomy. 10. Cholecystectomy. 11. Hernia repair. 12. Aortic valve replacement. HOSPITAL COURSE: A 53-year-old female with past medical history of osteomyelitis of the right foot complicated by bacterial endocarditis, status post aortic valve replacement, as well as hypertension, sleep apnea, came into the emergency room after she noticed a large ulcer on the left side of her foot , did not have much pain from it because of her neuropathy. Please refer to the history and physical dictated for full details. In the ER, the patient had a foot x-ray, which showed signs concerning for osteomyelitis in her foot. The patient was admitted to the hospitalist service, and for the diabetic foot ulcer with likely associated osteomyelitis, the patient was initially started on broad-spectrum antibiotics with vancomycin, cefepime, and Zosyn. The case was also discussed with Dr. Della Rogers of Orthopedics who saw the patient in consult. The patient's hemoglobin A1c had previously been 12 and the most recent one was 6.5 on 03/28/17. The patient is on Xultophy at home and metformin. The patient to continue working with her quahogger closely for further diabetic medication adjustment. The patient was seen in consultation by Dr. Rogers on , who initially recommended MRI for further evaluation. An MRI was performed on 02/12/19, which showed findings most consistent with osteomyelitis involving the left distal fifth metatarsal and fifth proximal phalanx. The patient was also seen in consult by Infectious Disease, Dr. Velazquez, on , and at this point, the patient was on cefepime and Flagyl. The patient was also taken to surgery on 02/12/19 for diagnosis of osteomyelitis, left fifth metatarsal and left fifth toe proximal phalanx, and the patient had a left fifth ray amputation on 02/12/19. The patient tolerated the procedure well. Blood cultures from her hospitalization had been negative. Her wound culture was negative. Even though the patient's MRI was suggestive of osteomyelitis, the patient's final bone culture preliminary is noted to be negative. This was also done when the patient was on antibiotics. The patient has been closely followed by the orthopedic surgery and infectious disease service through hospital course. The patient had a PICC lined placed for further IV antibiotic therapy and Infectious Disease recommends a total of 2 weeks of antibiotics as the patient's bone cultures have been negative. For her left foot diabetic ulcer with cellulitis with possible osteomyelitis, the patient is currently on day 8 of 14 and the patient to complete her course. Vancomycin goal being [address] Velazquez will follow her vancomycin levels and adjust doses appropriately. The patient's vanco level is noted to be elevated today at 33.6 , but this was not a true trough level and this was a mid level draw. This has been discussed with Dr. Velazquez and the patient will be discharged on 1500 q.12 hours of vancomycin. This has been discussed with pharmacy as well. The patient to not get her dose tonight and the patient to resume 1500 b.i.d. from tomorrow and further adjustment per the ID team. The patient to have CBC, CMP, CRP, and vanco trough as an outpatient and orders have been placed. The patient to follow up with Infectious Disease, Dr. Velazquez's office in 1 to 2 weeks for further evaluation of her foot and plan for further antibiotics. As discussed above, bone biopsy and tissue pathology from the OR noted for cellulitis and reactive changes in the bone. The patient has been advised to be nonweightbearing on that foot with instructions given to the patient. Vitals and labs noted to be stable at the time of discharge. DIAGNOSTIC STUDIES/LAB DATA: WBC 6.7, hemoglobin 10, hematocrit 31, platelets noted to be 348. Sodium 140, potassium 4.1, chloride 108, CO2 28, BUN 12, creatinine 1.08. Microbiology as discussed above. MRI of the foot as discussed above. Foot x-ray as discussed above. PHYSICAL EXAMINATION: HEENT: NC/AT. Heart: S1, S2 present. Regular at the time of exam. Lungs: Clear to auscultation. Abdomen: Soft. Extremities noted to have no edema. Left lower extremity and foot with dressing. Neuro: Alert, oriented x3. MEDICATION LIST: 1. Metformin 750 mg p.o. daily. 2. Fluoxetine 20 mg p.o. daily. 3. Vitamin D 1000 units p.o. daily. 4. Xultophy 25 units subcu daily. 5. Xarelto 15 mg p.o. daily. 6. Metoprolol 25 mg p.o. b.i.d. 7. Vancomycin 1.5 g q.12 hours. Home care has been arranged for the patient. The patient to hold her dose tonight and start from tomorrow. DISPOSITION: Home with home care. CONDITION: Stable. TIME SPENT: Total time spent on discharge is equal to 1 hour. ADDENDUM: Please note the patient was started on gabapentin in the hospital and the patient reports that this helps her a lot. In light of this, a script for gabapentin has also been sent to her pharmacy. The patient is currently on 300 mg 3 times a day. This can be titrated down if needed by her primary care doctor or titrated up based on discretion. [id number]/CPS #: [id number]/CPS #: [id number] CHET
--- NOTE | 2019-02-20 20:32 | DS ---
DISCHARGE SUMMARY: ADDENDUM: Please note the patient was started on gabapentin in the hospital and the patient reports that this helps her a lot. In light of this, a script for gabapentin has also been sent to her pharmacy. The patient is currently on 300 mg 3 times a day. This can be titrated down if needed by her primary care doctor or titrated up based on discretion. [id number]/CPS #: [id number] MTDD
== END 2019-02-20 16:55 | disposition home health service (06) | DRG 617 ==
LOC: ED 14:13 → MED 17:23
PROVIDERS: ADMIT Internal Medicine; ATTEND Internal Medicine
PROC: 0Y6N0ZF Detachment at Left Foot, Partial 5th Ray, Open Approach (ICD-10-PCS; principal; 2019-02-12 14:45)
PROC: 02HV33Z Insertion of Infusion Device into Superior Vena Cava, Percutaneous Approach (ICD-10-PCS; 2019-02-15)
DX: E11.69 Type 2 diabetes mellitus with other specified complication (principal); M86.8X7 Other osteomyelitis, ankle and foot; Z68.43 Body mass index [BMI] 50.0-59.9, adult; E11.621 Type 2 diabetes mellitus with foot ulcer; E11.319 Type 2 diabetes mellitus with unspecified diabetic retinopathy without macular edema; L97.529 Non-pressure chronic ulcer of other part of left foot with unspecified severity; E11.42 Type 2 diabetes mellitus with diabetic polyneuropathy; I48.0 Paroxysmal atrial fibrillation; G47.33 Obstructive sleep apnea (adult) (pediatric); E66.01 Morbid (severe) obesity due to excess calories; I12.9 Hypertensive chronic kidney disease with stage 1 through stage 4 chronic kidney disease, or unspecified chronic kidney disease; E11.22 Type 2 diabetes mellitus with diabetic chronic kidney disease; N18.9 Chronic kidney disease, unspecified; F41.8 Other specified anxiety disorders; L03.032 Cellulitis of left toe; Z79.01 Long term (current) use of anticoagulants; Z90.710 Acquired absence of both cervix and uterus; Z95.2 Presence of prosthetic heart valve; Z87.891 Personal history of nicotine dependence; Z91.19 Patient's noncompliance with other medical treatment and regimen; Z89.421 Acquired absence of other right toe(s); Z90.49 Acquired absence of other specified parts of digestive tract; Z79.4 Long term (current) use of insulin; Z79.899 Other long term (current) drug therapy
CPT/HCPCS: 36415; 80048; 80053; 80202; 82565; 83036; 83605; 83735; 84520; 85025; 86140; 87040; 87070; 87073; 87205; 87640; 87641; 88305; 88311; 93005; 96365; 99284; A9270-GY; C1751; J0692; J0696; J0780; J1650; J2250; J2704; J3010; J3370; J3475; J3490

== ENCOUNTER 2019-04-09 10:01 | Inpatient (IN) | payer OTHER ==
--- NOTE | 2019-04-05 14:05 | HP ---
PREOPERATIVE HISTORY AND PHYSICAL: DATE OF ADMISSION/SURGERY: 04/09/19 DATE OF OFFICE VISIT/ENCOUNTER: 04/05/19 ATTENDING SURGEON: Abel Lucero MD * (DICTATED BY DAT ELKINS) PROCEDURE: Left foot debridement, VAC dressing. HISTORY OF PRESENT ILLNESS: This is a 53-year-old female; diabetic, poorly controlled; and obese, who has history of osteomyelitis in her right foot causing amputation of her small toe and subsequent left fifth ray amputation on 02/12/[address] Lucero. The wound has been slow to heal and approximately 3 mm of dehiscence remains. Dr. Lucero plans to return with the patient to the operating room on 04/09/19, for a left foot debridement and placement of a wound VAC. The patient has consented to proceed. The patient currently takes Xarelto 15 mg daily. We will plan on keeping her on this during the perioperative period. PAST MEDICAL HISTORY: 1. Questionable history of MRSA years ago. 2. Diabetes type 2. 3. Peripheral neuropathy. 4. Aortic valve disorder with subsequent replacement. 5. Osteomyelitis. 6. Depression. 7. GERD. 8. Hyperlipidemia. 9. History of cardiovascular accident in 2018. 10. History of endocarditis. 11. Atrial fibrillation. 12. Sleep apnea. 13. Peripheral vascular disease. 14. Hypertension. PAST SURGICAL HISTORY: 1. Left fifth ray amputation. 2. Left small toe amputation. 3. Cholecystectomy. 4. Hernia repair. 5. Right shoulder rotator cuff repair. 6. Aortic valve replacement in 2017. 7. Hysterectomy. 8. Additionally, the patient has undergone several urgent cardioversions. CURRENT MEDICATIONS: 1. Atorvastatin calcium 20 mg daily. 2. Fluoxetine HCl 20 mg daily. 3. Gabapentin 300 mg 3 times a day. 4. Metformin HCl ER 750 mg daily. 5. Metoprolol succinate ER 25 mg daily. 6. Vitamin D3 2000 units daily. 7. Xarelto 15 mg daily. 8. Xultophy 100/3.6 units-mg/mL, use as directed. ALLERGIES: No known drug allergies. FAMILY MEDICAL HISTORY: Hypertension, diabetes, kidney disease. SOCIAL HISTORY: The patient is . She is disabled from work. She is a former smoker. She quit in 2017 and reports herself as a social smoker prior to that. She denies recreational drug use. She drinks alcohol on rare occasion. REVIEW OF SYSTEMS: Negative for general, cephalic, cardiovascular, respiratory , GI, , endocrine, integumentary, other musculoskeletal, neurological, and hematologic symptoms. PHYSICAL EXAMINATION GENERAL: Well-developed, obese 53-year-old female, in no acute distress. VITAL SIGNS: Height 5 feet 9 inches, weight 384 pounds. Pulse rate 87, blood pressure 118/82. HEENT: Normocephalic, atraumatic. Pupils are equal, round, and reactive to light and accommodation. Throat is clear. NECK: Supple. No palpable lymph nodes. PULMONARY: Lungs are clear to auscultation bilaterally. No wheezes, rales, or rhonchi. CARDIOVASCULAR: Regular rate and rhythm. S1, S2. No murmurs, rubs, or gallops. No edema. ABDOMEN: Positive bowel sounds. Soft, nontender. NEUROLOGICAL: Alert and oriented x3. Cranial nerves II through XII are intact. Peripheral neuropathy is present. MUSCULOSKELETAL: On exam of the left foot, at the midline of the incision at the lateral aspect of her foot, there is about 3 mm of dehiscence. No significant surrounding warmth or erythema. No significant drainage. There is mild edema throughout the foot. She has good motion in the remaining digits. Posterior tibial pulse is +2. She has decreased sensation to light touch distally. IMPRESSION: Left foot status post fifth ray amputation with nonhealing wound. PLAN/RECOMMENDATIONS: The patient is scheduled to undergo a left foot debridement with a wound VAC dressing with Dr. Lucero on 04/09/19. Risks and benefits of surgery were reviewed with the patient and she consented to proceed. DAT ELKINS [id number]/[facility] #: [id number] MTDCarmen
[2019-04-09] MEDS ORDERED: ceFAZolin 2 GM in NS PREMIX(*) 2 GM/100 ML BAG IVPB ONE (10:28)
[2019-04-09] MEDS ORDERED: fentaNYL* 50 MCG/ML 2 ML VIAL (100 MCG VIAL) ONE (12:23)
[2019-04-09] MEDS ORDERED: Midazolam* 1 MG/ML 5 ML VIAL (5 MG) ONE (12:23)
[2019-04-09] MEDS ORDERED: Bupivacaine 0.25% SDV PF* 10 ML VIAL INJ ONE (12:30)
[2019-04-09] MEDS ORDERED: Lidocaine 2% PF * 5 ML VIAL ONE (12:30)
[2019-04-09] MEDS ORDERED: KETAMINE HCL* 50 MG/ML 10 ML VIAL ONE (13:26)
[2019-04-09] MEDS ORDERED: Midazolam* 1 MG/ML 2 ML VIAL (2 MG) ONE (13:30)
[2019-04-09] MEDS ORDERED: Ondansetron ODT TAB* 4 MG PO PRN (13:53)
[2019-04-09] MEDS ORDERED: Magnesium Hydroxide LIQ* 30 ML UDC PO PRN (13:53)
[2019-04-09] MEDS ORDERED: oxyCODONE TAB* 5 MG TAB PO PRN (13:53)
[2019-04-09] MEDS ORDERED: oxyCODONE/Acetamin 5/325 MG* TAB PO PRN ×2 (13:53)
[2019-04-09] MEDS ORDERED: diPHENhydraMINE PO* 25 MG PO PRN (13:53)
[2019-04-09] MEDS ORDERED: diPHENhydraMINE IV* 50 MG/ML 1 ml VIAL (BENADRYL) IV PRN (13:53)
[2019-04-09] MEDS ORDERED: Morphine INJ* 2 MG/ML 1 ML SYRINGE (TWO MG - NEW SYRINGE VERSION) IV PRN (13:53)
[2019-04-09] MEDS ORDERED: Ondansetron INJ* 2 MG/ML VIAL IV PRN (13:53)
[2019-04-09] MEDS ORDERED: Lactated Ringers 1000 ML Bag* 1,000 ML IV SCH (14:00)
[2019-04-09] MEDS ORDERED: oxyCODONE/Acetamin 5/325 MG* TAB ONE (14:19)
[2019-04-09] MEDS ORDERED: Vancomycin per Pharmacy* NOTE FOLLOW UP PRN (16:32)
[2019-04-09] MEDS ORDERED: Dextrose 50% Syringe 50 ML* 25 GM/50 ML SYRINGE IV PUSH PRN (17:22)
[2019-04-09] MEDS ORDERED: Vancomycin(*) 2,000 MG in NS 0.9% 500 ML* 500 ML IVPB ONE (17:30)
[2019-04-09] MEDS: Rivaroxaban TAB(*) 15 MG PO SCH (18:41)
[2019-04-09] MEDS: Insulin LISPRO* 1 UNITS UNIT SUBCUT SCH (22:46)
[2019-04-09] MEDS: Gabapentin CAP(*) 300 MG PO SCH (22:47)
[2019-04-09] MEDS: Metoprolol Succinate XL TAB* 25 MG PO SCH (22:48)
[2019-04-09] MEDS: Acetaminophen TAB* 325 MG PO SCH (22:48)
[2019-04-09] MEDS: Docusate CAP* 100 MG PO SCH (22:49)
[2019-04-09] MEDS: Magnesium Hydroxide LIQ* 30 ML UDC PO SCH (22:51)
--- NOTE | 2019-04-09 23:29 | OP ---
DATE OF OPERATION: 04/09/19 - ROOM #331 DATE OF : 65 SURGEON: Abel Lucero MD DIALYSIS PATIENT CARE TECHNICIAN: Abhilash Rees PA-C PRE-OP DIAGNOSES: Ischemic chronic wound, left lateral foot; previous ray amputation. POST-OP DIAGNOSES: Ischemic chronic wound, left lateral foot; previous ray amputation. OPERATIVE PROCEDURE: Sharp debridement, left lateral forefoot wound with 3 L pulsatile lavage and VAC dressing application. DESCRIPTION OF PROCEDURE: The patient was taken to the operating room where lidocaine was instilled around the left lateral foot. We used a 10-blade and debrided the sharp edges of the wound which were necrotic. Good bleeding tissue was obtained. We also used a rongeur to clean the base of the wound. We then had the 3 L pulsatile lavage performed. We dropped the tourniquet off the ankle and obtained hemostasis and placed a VAC dressing over the lateral forefoot. [id number]/CPS #: [id number] MTDD
[2019-04-10 04:56] LABS: Hematocrit 35 % (35-47); Hemoglobin 10.9 g/dL (12.0-16.0); Mean Corpuscular HGB Conc 31 g/dL (31-36); Mean Corpuscular Hemoglobin 26 pg (27-31); Mean Corpuscular Volume 82 fL (80-97); Mean Platelet Volume 8.4 fL (7.4-10.4); Platelet Count 254 10^3/uL (150-450); Red Blood Count 4.22 10^6 /uL (3.70-4.87); Red Cell Distribution Width 15 % (10-15); White Blood Count 6.5 10^3/uL (3.5-10.8)
[2019-04-10 05:15] LABS: BUN/Creatinine Ratio 18.6 (8-20); Calcium 8.3 mg/dL (8.6-10.3); EGFR African American 60.9 (>60); EGFR Non-African American 50.4 (>60); Potassium 4.1 mmol/L (3.5-5.0)
[2019-04-10] MEDS: Acetaminophen TAB* 325 MG PO SCH ×3 (06:32→21:11)
[2019-04-10] MEDS: Vancomycin(*) 1,750 MG in NS 0.9% 500 ML* 500 ML IVPB SCH ×2 (07:02→18:07)
[2019-04-10] MEDS: Insulin LISPRO* 1 UNITS UNIT SUBCUT SCH ×4 (08:36→21:11)
[2019-04-10] MEDS: Magnesium Hydroxide LIQ* 30 ML UDC PO SCH ×2 (08:37→21:13)
[2019-04-10] MEDS: Insulin GLARGINE(*) 1 UNITS UNIT SUBCUT SCH (08:58)
[2019-04-10] MEDS: Vitamin THERAPEUTIC TAB PO SCH (08:58)
[2019-04-10] MEDS: FLUoxetine CAP* 20 MG PO SCH (08:58)
[2019-04-10] MEDS: Docusate CAP* 100 MG PO SCH ×2 (08:58→21:10)
[2019-04-10] MEDS: Gabapentin CAP(*) 300 MG PO SCH ×3 (08:58→21:11)
[2019-04-10] MEDS: Metoprolol Succinate XL TAB* 25 MG PO SCH ×2 (08:58→21:10)
[2019-04-10] MEDS ORDERED: Rivaroxaban TAB(*) 15 MG PO SCH (09:00)
--- NOTE | 2019-04-10 12:55 | PN ---
Progress Note - Progress Note Date of Service: 04/10/19 SOAP: Subjective: []Pt seen at bedside. She feels well without fever, chills, CP, SOB, dizziness, nausea. No L foot pain. Objective: []Gen: NAD LLE: Vac suctioning well. Able to f/e digits, insensate distally which is baseline. Cap refill roughly 3 sec Calves supple and nontender Assessment: []PRE-OP DIAGNOSES: Ischemic chronic wound, left lateral foot; previous ray amputation. POST-OP DIAGNOSES: Ischemic chronic wound, left lateral foot; previous ray amputation. OPERATIVE PROCEDURE: Sharp debridement, left lateral forefoot wound with 3 L pulsatile lavage and VAC dressing application. Plan: []Heel WB LLE Xarelto 15 mg qd ( home dose) Vasc consulted ID consulted Vital Signs Temp 97.5 F 04/10/19 11:39 Pulse 62 04/10/19 11:39 Resp 18 04/10/19 11:39 BP 128/61 04/10/19 11:39 Pulse Ox 97 04/10/19 11:39 Intake & Output 04/09/19 04/10/19 04/10/19 18:59 06:59 18:59 Intake Total 695 324 8092 Output Total 650 Balance 575 -350 1206 Weight 377 lb 6.4 oz Intake: IV Fluids 500 1006 ABX - VANCOMYCIN 1006 LR 500 Oral 75 300 200 Output: Urine 650 Other: Estimated Void Medium # Bowel Movements 1 Estimated Stool Amount Large # Voids 1 Laboratory Last Values WBC 6.5 10^3/uL (3.5-10.8) 04/10/19 04:23 RBC 4.22 10^6 /uL (3.70-4.87) 04/10/19 04:23 Hgb 10.9 g/dL (12.0-16.0) L 04/10/19 04:23 Hct 35 % (35-47) 04/10/19 04:23 MCV 82 fL (80-97) 04/10/19 04:23 MCH 26 pg (27-31) L 04/10/19 04:23 MCHC 31 g/dL (31-36) 04/10/19 04:23 RDW 15 % (10-15) 04/10/19 04:23 Plt Count 254 10^3/uL (150-450) 04/10/19 04:23 MPV 8.4 fL (7.4-10.4) 04/10/19 04:23 Sodium 139 mmol/L (135-145) 04/10/19 04:23 Potassium 4.1 mmol/L (3.5-5.0) 04/10/19 04:23 Chloride 107 mmol/L (101-111) 04/10/19 04:23 Carbon Dioxide 27 mmol/L (22-32) 04/10/19 04:23 Anion Gap 5 mmol/L (2-11) 04/10/19 04:23 BUN 21 mg/dL (6-24) 04/10/19 04:23 Creatinine 1.13 mg/dL (0.51-0.95) H 04/10/19 04:23 Est GFR ( Amer) 60.9 (>60) 04/10/19 04:23 Est GFR (Non-Af Amer) 50.4 (>60) 04/10/19 04:23 BUN/Creatinine Ratio 18.6 (8-20) 04/10/19 04:23 Glucose 115 mg/dL (70-100) H 04/10/19 04:23 POC Glucose (mg/dL) 204 mg/dL (70-100) H 04/09/19 22:40 Calcium 8.3 mg/dL (8.6-10.3) L 04/10/19 04:23
--- NOTE | 2019-04-10 13:19 | CONS ---
DATE OF CONSULTATION: 04/10/2019. DATE OF ADMISSION: 04/09/2019. PRIMARY CARE PHYSICIAN: Dr. Matthew Murphy. CONSULTING SERVICE: Infectious Disease. PROVIDER: Violet Bacon NP. ATTENDING PHYSICIAN: Dr. Cesar Velazquez * (dictated by Violet Bacon NP). REASON FOR CONSULTATION: Left foot wound after left fifth ray amputation in January 2019. IMPRESSION: 1. Left foot wound with history of chronic osteomyelitis. The patient previously had a left fifth ray amputation on 02/12/2019 after being found to have osteomyelitis. She completed an extended course of IV antibiotics. The wound had poor healing and opened up. Dr. Lucero decided to take her back to the OR yesterday for a debridement and VAC placement. She has been afebrile. No leukocytosis. Last CRP checked on February 26 was 5.45, has not been checked on this admission. Previously, cultures from that foot with no growth and normal fritz. Differential diagnosis: Infection verus non infectious cause of delayed wound healing (diabetes and/or poor circulation). 2. 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 3. Obstructive sleep apnea, noncompliant with CPAP. 4. History of right first toe osteomyelitis, status post right first ray amputation. 5. History of infective endocarditis, status post aortic valve replacement. RECOMMENDATIONS AND PLAN: Recommend continuing Vancomycin for now. We will await any cultures from the operating room. Will continue to follow along. Final recommendations will be based on any culture results and the patient's clinical course. HISTORY OF PRESENT ILLNESS: Ms. Mansfield is a 53-year-old female with a past medical history significant for endocarditis and osteomyelitis, status post right first ray amputation and left 5th ray amputation, diabetes mellitus type 2 , peripheral neuropathy, diabetic neuropathy, paroxysmal atrial fibrillation, hypertension, and obstructive sleep apnea who had initially noticed a wound on the outer aspect of her left foot back in January. At that time, she underwent a left fifth ray amputation and completed an extended course of IV antibiotics. She was doing well with the exception of a nonhealing wound with some dehiscence who has been following with Orthopedics. Dr. Lucero took her back to the OR yesterday for debridement, pulse lavage and wound VAC placement. Otherwise she states that she is feeling well. She denies any fevers, chills , nausea, vomiting, or diarrhea. She has peripheral neuropathy in that foot, so she has had no pain. PAST MEDICAL HISTORY: 1. Endocarditis. 2. Osteomyelitis of the right first toe. 3. Osteomyelitis of the left fifth toe. 4. Diabetes mellitus type 2. 5. Diabetic neuropathy. 6. Diabetic retinopathy. 7. Paroxysmal atrial fibrillation. 8. Hypertension. 9. Obstructive sleep apnea, noncompliant with CPAP. 10. Chronic kidney disease. PAST SURGICAL HISTORY: 1. Status post aortic valve replacement. 2. Status post first ray amputation. 3. Status post left fifth ray amputation on 02/12/2019. 4. Status post right rotator cuff repair. 5. Status post hysterectomy. 6. Status post cholecystectomy. 7. Status post hernia repair. HOME MEDICATIONS: 1. Xarelto 15 mg by mouth every evening. 2. Metoprolol Succinate 25 mg by mouth twice daily. 3. Metformin ER 750 mg by mouth every evening. 4. Xultophy 45 units subcutaneous every morning. 5. Gabapentin 300 mg by mouth 3 times daily. 6. Fluoxetine 20 mg by mouth every morning. 7. Vitamin D 1,000 units by mouth every morning. HOSPITAL MEDICATIONS: 1. Acetaminophen 975 mg by mouth every 8 hours. 2. Dulcolax Suppository 10 mg per rectum daily as needed for constipation. 3. Flexeril 10 mg by mouth every 6 hours as needed for muscle spasms. 4. Dextrose 12.5 gm IV push for glucose less than 60. 5. Benadryl 25 mg IV or p.o. every 6 hours as needed for itching. 6. Colace 100 mg by mouth twice daily. 7. Fluoxetine 20 mg by mouth daily. 8. Gabapentin 300 mg by mouth 3 times daily. 9. Lantus insulin 25 units subcutaneous daily. 10. Humalog insulin sliding scale subcutaneous with meals and at bedtime. 11. Lactulose 30 mg by mouth twice daily as needed for constipation. 12. Milk of Magnesia 30 ml by mouth twice daily until bowel movement followed by 30 ml by mouth every 6 hours as needed for constipation. 13. Metoprolol Succinate 25 mg by mouth twice daily. 14. Morphine Sulfate 2 mg IV every 4 hours as needed for pain. 15. Multivitamin one tablet by mouth daily. 16. Zofran 4 mg IV or p.o. every 6 hours as needed for nausea. 17. Oxycodone 10 mg by mouth every 4 hours as needed for pain. 18. Percocet 5/325 one to two tablets by mouth every 4 hours as needed for pain. 19. MiraLax 17 gm by mouth daily as needed for constipation. 20. Xarelto 15 mg by mouth daily. 21. Tramadol 50 mg by mouth every 6 hours as needed for pain. 22. Trazodone 25 mg by mouth at bedtime as needed for insomnia. 23. Vancomycin 1750 mg IV every 12 hours. ALLERGIES: No known drug allergies. FAMILY HISTORY: Denies any family history of recurrent resistant infections. Mother with a history of heart disease and diabetes. Maternal grandmother with a history of unknown cancer. SOCIAL HISTORY: Denies alcohol or recreational drug use. She is a former smoker, quitting in 2017. Prior to that she was a "social smoker." REVIEW OF SYSTEMS: I performed a ten point review of systems. All the pertinent positives and negatives are mentioned in the history or present illness. The remaining review of systems are negative. PHYSICAL EXAM: General: Appears to be in no acute distress, sitting up on the side of the bed. Vital Signs: Temperature 97.8, heart rate 81, respiratory rate 16, O2 sat 95 percent on room air, blood pressure 130/50. HEENT: Head normocephalic, atraumatic. Extraocular movements are intact. No subconjunctival hemorrhage. Moist mucous membranes. Neck: Supple. No lymphadenopathy. Neurological: Alert and oriented times four. Cranial nerves II through XII are grossly intact. Cardiovascular: Regular rate and rhythm. S1 and S2 present. No murmurs, rubs, or gallops heard. Respiratory: No accessory muscle use. The lungs are clear to auscultation bilaterally, they are diminished in the bases. Abdomen: Bowel sounds present. Abdomen is obese, soft, nontender. Extremities: She has mild bilateral lower extremity edema. DP/PT pulses are 1+ and symmetric. Musculoskeletal: No clubbing or cyanosis noted. She does exhibit good strength in all extremities. Psychological: Calm and cooperative. Skin: No rashes or abnormalities seen. She has a surgical dressing to the left foot that is clean, dry, and intact. DIAGNOSTIC STUDIES/LAB DATA: Sodium 139, potassium 4.1, chloride 107, CO2 27, BUN 21, creatinine 1.13, glucose 115; white blood cell count 6.5, hemoglobin 10.9, hematocrit 35, platelet count 254. Please see impression and recommendations outlined above. Recommendations have been discussed with DAT Lakrin. Thank you for asking us to see Ms. Mansfield in consultation. The case has been reviewed with my attending, Dr. Cesar Velazquez, who agrees with the plan of care. Reviewed by VIOLET BACON, [place] 04/11/19 1632 [id number] #: [id number] MTDCarmen
[2019-04-10] MEDS: Cyclobenzaprine TAB* 10 MG PO PRN (16:53)
--- NOTE | 2019-04-10 17:11 | CONSULT ---
Consult Consult: Date of Service: 04/10/19 Patient: MAYITO RENEE /Age: 07 1965 53 Admission Date: 04/09/19 Reason for consultation: Nonhealing wound status post left fifth ray amputation Requesting service: DAT Larkin from foot and ankle surgery HISTORY OF PRESENT ILLNESS: This is a 53-year-old female; diabetic, poorly controlled; and morbidly obese, who has history of osteomyelitis in her right foot causing amputation of her small toe and subsequent left fifth ray amputation on 02/12/[address] Lucero. The patient returned to the operating room with Dr. Lucero on Tuesday, 2019 for a left foot debridement and placement of a wound VAC. Subsequent KIN acquired 04/09/2019 shows evidence of lower extremity arterial insufficiency. The patient underwent amputation of the right foot approximately 2 years earlier. The patient denies any symptoms characteristic of claudication or nighttime rest pain, however she rarely walks more than inside or immediately outside her mobile home. She denies any aching pain in the legs or calves when laying in bed at night. PAST MEDICAL HISTORY: 1. Questionable history of MRSA years ago. 2. Diabetes type 2. 3. Peripheral neuropathy. 4. Aortic valve disorder with subsequent replacement. 5. Osteomyelitis. 6. Depression. 7. GERD. 8. Hyperlipidemia. 9. History of cardiovascular accident in 2018. 10. History of endocarditis. 11. Atrial fibrillation. 12. Sleep apnea. 13. Peripheral vascular disease. 14. Hypertension. PAST SURGICAL HISTORY: 1. Left fifth ray amputation. 2. Left small toe amputation. 3. Cholecystectomy. 4. Hernia repair. 5. Right shoulder rotator cuff repair. 6. Aortic valve replacement in 2017. 7. Hysterectomy. 8. Additionally, the patient has undergone several urgent cardioversions. CURRENT MEDICATIONS: 1. Atorvastatin calcium 20 mg daily. 2. Fluoxetine HCl 20 mg daily. 3. Gabapentin 300 mg 3 times a day. 4. Metformin HCl ER 750 mg daily. 5. Metoprolol succinate ER 25 mg daily. 6. Vitamin D3 2000 units daily. 7. Xarelto 15 mg daily. 8. Xultophy 100/3.6 units-mg/mL, use as directed. ALLERGIES: No known drug allergies. FAMILY MEDICAL HISTORY: Hypertension, diabetes, kidney disease. SOCIAL HISTORY: The patient is . She is disabled from work. She is a former smoker. She quit in 2017 and reports herself as a social smoker prior to that. She denies recreational drug use. She drinks alcohol on rare occasion. REVIEW OF SYSTEMS: Negative for general, cephalic, cardiovascular, respiratory , GI, , endocrine, integumentary, other musculoskeletal, neurological, and hematologic symptoms. PHYSICAL EXAMINATION: Selected Entries 04/10/19 04/10/19 15:10 16:53 Temperature 97.6 F Temperature Oral Source Pulse Rate 69 Respiratory 16 Rate Blood Pressure 130/89 (mmHg) Blood Pressure 102 Mean O2 Sat by Pulse 98 Oximetry Patient on Room Yes Air GENERAL: Well-developed, obese 53-year-old female, in no acute distress. Height 5 feet 9 inches, weight 384 pounds. HEENT: Normocephalic, atraumatic. Pupils are equal, round, and reactive to light and accommodation. Throat is clear. NECK: Supple. No palpable lymph nodes. PULMONARY: Lungs are clear to auscultation bilaterally. No wheezes, rales, or rhonchi. CARDIOVASCULAR: 2/6 SFM with "loud" S2 Nonpalpable pedal arteiries. 1+ pulses at bilateral popliteal and [employer]. ABDOMEN: Positive bowel sounds. Soft, nontender. NEUROLOGICAL: Alert and oriented x3. Peripheral neuropathy is present. MUSCULOSKELETAL: Left foot is wrapped in JONH wrap and wound VAC is in place. Motor function is grossly intact. RELEVANT IMAGING: Patient Name: MAYITO RENEE Medical Record#: [id number] Ordering Physician: Abhilash DAUGHERTY Acct.#: [id number] : 1965 Age: 53 Sex: F Location: SURGICAL STAY UNIT Exam Date: 04/09/19 1406 ADM Status: ADM IN Order Information: VL ANK/ BRACHIAL INDICES Accession Number: [id number] CPT: 22419 INDICATION: Nonhealing wound status post fifth toe amputation. COMPARISON: None. TECHNIQUE: Ankle-brachial indices and Doppler tracings were obtained of the lower extremities bilaterally. Volume pulse recordings were acquired at the bilateral ankles. REPORT: Ankle-brachial indices: Right: Value (SBP) Index Brachial: 133 Posterior tibialis: Noncompressible Dorsalis pedis: Noncompressible Left: Value (SBP) Index Brachial: 143 Posterior tibialis: Noncompressible Dorsalis pedis: Noncompressible Digit: 77 0.54 Doppler waveforms (acquired at rest): In the interrogated lower extremity arteries, Doppler waveforms are biphasic bilaterally. Volume pulse recordings (acquired at rest): Volume pulse recordings, measured at the bilateral ankles, are symmetric. IMPRESSION: Noncompressibility of the bilateral infrapopliteal arteries are most consistent with advanced calcified atherosclerosis preventing acquisition of ankle-brachial indices. There is modest derangement of the arterial waveforms, worse on the right than the left. In the presence of a nonhealing amputation surgical site, dedicated vascular evaluation and further vascular work up is likely appropriate. <Electronically signed by Naresh Quezada MD in OV> 04/10/19 0815 Dictated By: Naresh Quezada MD Dictated Date/Time: 04/10/19 0808 RELEVANT LABS: Laboratory Tests 04/10/19 04/10/19 04:23 04:23 WBC 6.5 RBC 4.22 Hgb 10.9 L Hct 35 BUN 21 Creatinine 1.13 H Est GFR ( Amer) 60.9 Est GFR (Non-Af Amer) 50.4 IMPRESSION: Left foot status post fifth ray amputation with nonhealing wound. The patient has risk factors for diabetic calcified atherosclerosis with lower extremity arterial insufficiency. Pulses can be palpated the bilateral common femoral and popliteal arteries indicating that if significant flow-limiting disease exists it is in the infrapopliteal and pedal distribution which is characteristic of a diabetic patient her age. PLAN/RECOMMENDATIONS: 1. Lower extremity arterial duplex sonography with attention to the popliteal, infrapopliteal and pedal arteries. 2. The patient's body habitus will cause angiography to be challenging and high risk and therefore arteriography will only be recommended if there is compelling indication that there will be clinical benefit. 3. Most likely the patient's best means of healing her wounds and preventing further wounds are weight loss, strict diabetes control and continued high- quality wound care. 4. The patient may derive benefit from outpatient consultation at [facility] to explore weight loss options including gastric bypass surgery.
[2019-04-10] MEDS: Rivaroxaban TAB(*) 15 MG PO SCH (18:05)
--- NOTE | 2019-04-10 19:38 | CONS ---
CC: Dr. Murphy; Dr. Quezada; Dr. Velazquez; Dr. Lucero * CONSULTATION NOTE: DATE OF CONSULT: 04/10/19 PRIMARY CARE PHYSICIAN: Dr. Murphy. REQUESTING PHYSICIAN: Dr. Lucero from Orthopedic Surgery who has requested the consult. REASON FOR CONSULTATION: Co-management of medical conditions in a patient status post left fifth ray amputation with wound dehiscence and wound with VAC placement. CHIEF COMPLAINT: Left foot pain. HISTORY OF PRESENT ILLNESS: Karma Mansfield is a 53-year-old female with history of osteomyelitis of the left foot status post left fifth ray amputation performed by Dr. Lucero on 02/12/19 complicated by wound dehiscence, outpatient treatment and who now is status post debridement and wound VAC placement in the left foot area performed by Dr. Lucero on 04/09/19. The patient has history of chronic kidney disease stage 3, diabetes, peripheral neuropathy and consultation with Medicine was requested in regards of management of patient's chronic conditions. Currently, the patient feels rather well. She complains of bilateral leg swelling, left more than right and complaint of postoperative left foot pain. PAST MEDICAL HISTORY: 1. History of osteomyelitis, status post right first toe amputation in the past and left fifth ray amputation on 02/12/19 as described above. 2. History of wound dehiscence in the left lateral foot area postoperatively, status post wound VAC placement on 04/09/19. 3. History of diabetes mellitus with neuropathy and nephropathy and chronic kidney disease stage 3a. 4. Paroxysmal atrial fibrillation. 5. Hypertension. 6. Obstructive sleep apnea, not compliant with CPAP. 7. Status post aortic valve replacement for endocarditis in the past. 8. Rotator cuff surgery. 9. Hysterectomy. 10. Cholecystectomy. 11. Hernia repair. MEDICATIONS AT HOME: Include: 1. Xarelto 15 mg q.p.m. 2. Metoprolol succinate 25 mg b.i.d. 3. Metformin 750 mg q.p.m. 4. Xultophy 45 units q.a.m. 5. Gabapentin 300 mg 3 times a day. 6. Fluoxetine 20 mg daily. 7. Vitamin D3 1000 units daily ALLERGIES: No known drug allergies. FAMILY HISTORY: Positive for mother with diabetes and heart disease. Father had hypertension. SOCIAL HISTORY: The patient has history of smoking until approximately 3 years ago when she quit. She denies any alcohol on drug use. 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 She is and her , Chaz, is her surrogate. REVIEW OF SYSTEMS: Please see history of present illness. All the remaining 12 systems were reviewed with the patient and were otherwise negative. PHYSICAL EXAMINATION: Vital Signs: Blood pressure of 130/89, heart rate of 69 and regular, respiratory rate 16, oxygen saturation 98% on room air, temperature of 97.6. General: The patient is a very pleasant 53-year-old female who has a BMI of 55. The patient is not in acute distress. She is alert and oriented x3. HEENT: Head atraumatic, normocephalic. Eyes: Pupils are equal and reactive to light and accommodation. Oropharynx is clear. Mucosa moist. Neck: Supple. No JVD. No bruit bilaterally. Cardiovascular: Regular rate and rhythm. No murmur. Respiratory: Clear to auscultation bilaterally. Abdomen: Soft and nontender. Bowel sounds are present in all 4 quadrants. Extremities: Bilateral +1 pitting pedal edema, left more than right. There is no clubbing, no cyanosis. The left foot, most of it is in postoperative dressings and wound VAC in place that was not unwrapped for evaluation. The right foot has no clubbing, no cyanosis, rather poorly palpable peripheral pulses due to edema. DIAGNOSTIC STUDIES/LAB DATA: White blood cell count 6.5, hemoglobin of 10.9, hematocrit of 35 and platelets of 254. Sodium of 139, potassium of 4.1, chloride 107, carbon dioxide 57, BUN 21, creatinine 1.13. Arterial study of left lower extremity showed noncompressible bilateral infrapopliteal arteries consistent with advanced calcified atherosclerosis preventing acquisition of the ankle brachial indices. There is modest derangement of the arterial waveforms, worse on the right than the left. The presence of nonhealing amputation surgical site dedicated vascular evaluation and further vascular workup is likely appropriate. ASSESSMENT AND PLAN: 1. In regards to the patient's nonhealing wound, the primary orthopedic service with Dr. Lucero already asked Dr. Quezada to see the patient for vascular evaluation, which is pending. Currently, wound VAC is in place. 2. For the patient's diabetic management, the patient is going to be switched from her insulin Degludec to insulin Lantus which is on the formulary in the hospital. We will also continue insulin sliding scale and hold the patient's metformin for the time being. 3. For the patient's atrial fibrillation, Xarelto is going to be continued as well as metoprolol succinate. 4. For DVT prophylaxis, the patient has already on Xarelto as mentioned above. 5. The patient has chronic kidney disease stage 3a. Creatinine at baseline 5. The patient has normocytic anemia with hemoglobin of 10.9, it is at patient' s baseline. 6. The patient's code status is full and her surrogate is her . Thank you very much for allowing our service to see your patient in consultation. We will follow on a daily basis. TIME SPENT: Approximately 55 minutes was spent on the patient's consult. [id number]/[facility] #: [id number] CHET
[2019-04-11] MEDS ORDERED: Vancomycin Trough Check NOTE FOLLOW UP ONE (06:00)
[2019-04-11] MEDS: Acetaminophen TAB* 325 MG PO SCH ×3 (06:35→21:16)
[2019-04-11] MEDS: Vancomycin(*) 1,750 MG in NS 0.9% 500 ML* 500 ML IVPB SCH (07:58)
[2019-04-11] MEDS: Insulin LISPRO* 1 UNITS UNIT SUBCUT SCH ×4 (08:41→21:17)
[2019-04-11] MEDS: Magnesium Hydroxide LIQ* 30 ML UDC PO SCH (08:41)
[2019-04-11] MEDS: Insulin GLARGINE(*) 1 UNITS UNIT SUBCUT SCH (08:42)
[2019-04-11] MEDS: Docusate CAP* 100 MG PO SCH ×2 (08:42→21:15)
[2019-04-11] MEDS: Metoprolol Succinate XL TAB* 25 MG PO SCH ×2 (08:42→21:16)
[2019-04-11] MEDS: Vitamin THERAPEUTIC TAB PO SCH (08:42)
[2019-04-11] MEDS: FLUoxetine CAP* 20 MG PO SCH (08:42)
[2019-04-11] MEDS: Gabapentin CAP(*) 300 MG PO SCH ×3 (08:42→21:16)
--- NOTE | 2019-04-11 09:39 | PN ---
Progress Note - Progress Note Date of Service: 04/11/19 SOAP: Subjective: CC: Non-healing wound to the left lateral foot HPI: Ms. Mansfield is a 53 yo female with PMH significant for DM2, peripheral neuropathy, diabetic retinopathy, TULIO, endocarditis S/P AVR, osteomyelitis, P afib, HTN, and morbid obesity; who presented to the hospital with a non-healing wound to the left lateral foot after a left 5th ray amputation in January 2019. S/P debridement and wound vac placement. Denies fever, chills, nausea, vomiting, diarrhea, or pain. Objective: Vital Signs 04/11/19 04/11/19 08:36 08:42 Temperature 97.4 F Pulse Rate 66 Respiratory 14 16 Rate Blood Pressure 130/71 (mmHg) O2 Sat by Pulse 97 Oximetry Physical Exam: General: NAD, sitting up on the side of the bed Neurological: Alert and Oriented HEENT: Moist MM Cardiovascular: Heart rate regular Respiratory: Lung sounds clear Abdominal: Bowel sounds present; ABD soft, non tender and obese MSK: FAY Skin: No rash Laboratory Last Values WBC 6.5 10^3/uL (3.5-10.8) 04/10/19 04:23 RBC 4.22 10^6 /uL (3.70-4.87) 04/10/19 04:23 Hgb 10.9 g/dL (12.0-16.0) L 04/10/19 04:23 Hct 35 % (35-47) 04/10/19 04:23 MCV 82 fL (80-97) 04/10/19 04:23 MCH 26 pg (27-31) L 04/10/19 04:23 MCHC 31 g/dL (31-36) 04/10/19 04:23 RDW 15 % (10-15) 04/10/19 04:23 Plt Count 254 10^3/uL (150-450) 04/10/19 04:23 MPV 8.4 fL (7.4-10.4) 04/10/19 04:23 Sodium 139 mmol/L (135-145) 04/10/19 04:23 Potassium 4.1 mmol/L (3.5-5.0) 04/10/19 04:23 Chloride 107 mmol/L (101-111) 04/10/19 04:23 Carbon Dioxide 27 mmol/L (22-32) 04/10/19 04:23 Anion Gap 5 mmol/L (2-11) 04/10/19 04:23 BUN 21 mg/dL (6-24) 04/10/19 04:23 Creatinine 1.13 mg/dL (0.51-0.95) H 04/10/19 04:23 Est GFR ( Amer) 60.9 (>60) 04/10/19 04:23 Est GFR (Non-Af Amer) 50.4 (>60) 04/10/19 04:23 BUN/Creatinine Ratio 18.6 (8-20) 04/10/19 04:23 Glucose 115 mg/dL (70-100) H 04/10/19 04:23 POC Glucose (mg/dL) 162 mg/dL (70-100) H 04/11/19 07:49 Calcium 8.3 mg/dL (8.6-10.3) L 04/10/19 04:23 Vancomycin Trough 22.9 mcg/mL 04/11/19 06:50 Assessment: 1. Left foot non-healing wound with hx chronic osteomyelitis. S/P left 5th ray amputation in 01/2019, incision never fully healed. She completed an extended course of IV ABX in February 2019. Previous cultures with no growth, and pathology with . Now S/P debridement and vac placement, POD #2. Afebrile, no leukocytosis. Differential Dx: Infection vs secondary to underlying issue such as poor circulation and/or DM (microvascular disease). Dr. Quezada saw her yesterday after abnormal ABIs. She had arterial dupplex this AM, awaiting results. 2. DM2. With peripheral neuropathy and retinopathy. 3. TULIO. 4. Morbid obesity. BMI 55.7 5. History of right 1st toe osteomyelitis. S/P right 1st ray amputation. 6. History of infective endocarditits. S/P AVR. Plan: Continue Vancomycin for now. Can transition to oral Doxycycline to complete a 14 day course of ABX at discharge. Followup with ID outpatient. 25 minutes floor time: > 50% spent with the patient discussing options for ABX and recommendations.
--- NOTE | 2019-04-11 10:30 | PN ---
Subjective Date of Service: 04/11/19 Interval History: Pt feels well. would like to go home TANYA. Objective Active Medications: Acetaminophen (Tylenol Tab*) 975 mg PO Q8HR [facility] Last Admin: 04/11/19 06:35 Dose: 975 mg Bisacodyl (Dulcolax Supp*) 10 mg MT DAILY PRN PRN Reason: CONSTIPATION Cyclobenzaprine HCl (Flexeril Tab*) 10 mg PO Q6H PRN PRN Reason: SPASMS Last Admin: 04/10/19 16:53 Dose: 10 mg Dextrose (D50w Syringe 50 Ml*) 12.5 gm IV PUSH .FOR FS < 60 - SS PRN PRN Reason: FS < 60 Diphenhydramine HCl (Benadryl Iv*) 25 mg IV Q6H PRN PRN Reason: PRURITIS Diphenhydramine HCl (Benadryl Po*) 25 mg PO Q6H PRN PRN Reason: PRURITIS Docusate Sodium (Colace Cap*) 100 mg PO BID [facility] Last Admin: 04/11/19 08:42 Dose: 100 mg Fluoxetine HCl (Prozac Cap*) 20 mg PO QAM [facility] Last Admin: 04/11/19 08:42 Dose: 20 mg Gabapentin (Neurontin Cap(*)) 300 mg PO TID [facility] Last Admin: 04/11/19 08:42 Dose: 300 mg Vancomycin HCl 1,250 mg/ (Sodium Chloride) 250 mls @ 166.667 mls/hr IVPB Q12H [facility] Insulin Glargine (Lantus(*)) 25 units SUBCUT Q24H [facility] Last Admin: 04/11/19 08:42 Dose: 25 unit Insulin Human Lispro (Humalog*) 0 units SUBCUT ACHS [facility]; Protocol Last Admin: 04/11/19 08:41 Dose: 2 units Lactulose (Lactulose*) 30 ml PO BID PRN PRN Reason: CONSTIPATION Magnesium Hydroxide (Milk Of Magnesia Liq*) 30 ml PO BID [facility] Last Admin: 04/11/19 08:41 Dose: 30 ml Magnesium Hydroxide (Milk Of Magnesia Liq*) 30 ml PO Q6H PRN PRN Reason: CONSTIPATION Metoprolol Succinate (Toprol Xl Tab*) 25 mg PO BID [facility] Last Admin: 04/11/19 08:42 Dose: 25 mg Morphine Sulfate (Morphine Inj (Syringe))*) 2 mg IV Q4H PRN PRN Reason: Pain - Unrelieved Multivitamins (Theragran Tab*) 1 tab PO DAILY [facility] Last Admin: 04/11/19 08:42 Dose: 1 tab Ondansetron HCl (Zofran Inj*) 4 mg IV Q6H PRN PRN Reason: NAUSEA Ondansetron HCl (Zofran Odt Tab*) 4 mg PO Q6H PRN PRN Reason: NAUSEA Oxycodone HCl (Roxycodone Tab*) 10 mg PO Q4H PRN PRN Reason: Pain - Breakthrough Oxycodone/Acetaminophen (Percocet 5/325 Tab*) 1 tab PO Q4H PRN PRN Reason: PAIN - MODERATE Oxycodone/Acetaminophen (Percocet 5/325 Tab*) 2 tab PO Q4H PRN PRN Reason: PAIN - SEVERE Last Admin: 04/09/19 14:21 Dose: 2 tab Pharmacy Consult (Vancomycin Per Pharmacy*) 1 note FOLLOW UP . PRN PRN Reason: PER PROTOCOL Pharmacy Profile Note (Vancomycin Trough Check) 1 note FOLLOW UP 1230 ONE Stop: 04/13/19 12:31 Polyethylene Glycol/Electrolytes (Miralax (17 Gm Dose Archie)) 17 gm PO DAILY PRN PRN Reason: Constipation Rivaroxaban (Xarelto(*)) 15 mg PO QPM [facility] Last Admin: 04/10/19 18:05 Dose: 15 mg Tramadol HCl (Ultram*) 50 mg PO Q6HR PRN PRN Reason: PAIN - MODERATE Trazodone HCl (Desyrel Tab*) 25 mg PO BEDTIME PRN PRN Reason: insomnia Vital Signs - 8 hr 04/11/19 04/11/19 04/11/19 03:20 06:36 08:00 Temperature 98 F Pulse Rate 69 Respiratory 20 20 20 Rate Blood Pressure 138/70 (mmHg) O2 Sat by Pulse 96 Oximetry 04/11/19 04/11/19 08:36 08:42 Temperature 97.4 F Pulse Rate 66 Respiratory 14 16 Rate Blood Pressure 130/71 (mmHg) O2 Sat by Pulse 97 Oximetry Oxygen Devices in Use Now: None Appearance: 53 yo obese F in nAD, aAOx3 Eyes: No Scleral Icterus, PERRLA Ears/Nose/Mouth/Throat: NL Teeth, Lips, Gums, Mucous Membranes Moist Neck: NL Appearance and Movements; NL JVP, Trachea Midline Respiratory: Symmetrical Chest Expansion and Respiratory Effort, Clear to Auscultation Cardiovascular: NL Sounds; No Murmurs; No JVD, RRR Abdominal: NL Sounds; No Tenderness; No Distention Lymphatic: No Cervical Adenopathy Extremities: No Clubbing, Cyanosis, - - diffuse +2 pitting b/l distal LE's edema , L foot with Vac in place-dressing not removed Skin: No Nodules or Sclerosis Neurological: Alert and Oriented x 3, NL Muscle Strength and Tone Result Diagrams: 04/10/19 04:23 04/10/19 04:23 Assess/Plan/Problems-Billing Assessment: 53yo female with a PMH for DM II, Endocarditis with AVR, PAF, morbid obesity, here with nonhealing left foot wound after left fifth ray amputation on 02/12/19 and now Vac dressing placed on 04/09/19 - Patient Problems (1) Wound of left foot Comment: cont Vanc for now as per ID As per d/w ortho-pt will have Vac reevaluated tomorrow (2) Chronic kidney disease Comment: -stable with Cr at baseline (3) HTN (hypertension) Comment: Continue Metoprolol. (4) Morbid obesity Comment: BMI 55 (5) Type 2 diabetes mellitus Comment: -controlled, -continue lantus 25u with SSI -resume Xultophy at D/C and F/U Endocrinology (6) Atrial fibrillation Comment: -paryoxysmal -continue Xarelto, metoprolol (7) Normocytic anemia Comment: Hb at baseline in the past 2 mos (8) DVT prophylaxis Comment: -continue xarelto Status and Disposition: Medicine consult, will follow
--- NOTE | 2019-04-11 12:52 | PN ---
Progress Note - Progress Note Date of Service: 04/11/19 SOAP: Subjective: []Pt seen at bedside. Denies CP, SOB, dizziness, nausea, LLE pain. Has vasc eval last night, having arterial duplex when I saw her today. Objective: []Gen: NAD LLE: Vac suctioning well. No erythema around dressing. Able to f/e digits, insensate distally which is baseline. Cap refill roughly 3 sec Calves supple and nontender Assessment: []PRE-OP DIAGNOSES: Ischemic chronic wound, left lateral foot; previous ray amputation. POST-OP DIAGNOSES: Ischemic chronic wound, left lateral foot; previous ray amputation. OPERATIVE PROCEDURE: Sharp debridement, left lateral forefoot wound with 3 L pulsatile lavage and VAC dressing application. Plan: []Heel WB LLE Xarelto 15 mg qd ( home dose) Vasc consulted and saw yesterday, duplex results pending. ID mgmt of abx. Will change vac at bedside . Will need a few vac changes in house before DC, anticipate she will need vac at home as well. Will order outpt vac after wound is assessed with 1st vac change. Vital Signs Temp 98 F 04/11/19 12:01 Pulse 59 04/11/19 12:01 Resp 16 04/11/19 12:01 BP 138/65 04/11/19 12:01 Pulse Ox 97 04/11/19 12:01 Intake & Output 04/10/19 04/11/19 04/11/19 18:59 06:59 18:59 Intake Total 1646 1212 240 Output Total 900 400 Balance 1646 312 -160 Intake: IV Fluids 1006 562 ABX - VANCOMYCIN 1006 550 NS (0.9%) 12 Oral 640 650 240 Output: Urine 900 400 Other: Estimated Void Medium Small # Bowel Movements 1 Estimated Stool Amount Large # Voids 1 1 Laboratory Last Values WBC 6.5 10^3/uL (3.5-10.8) 04/10/19 04:23 RBC 4.22 10^6 /uL (3.70-4.87) 04/10/19 04:23 Hgb 10.9 g/dL (12.0-16.0) L 04/10/19 04:23 Hct 35 % (35-47) 04/10/19 04:23 MCV 82 fL (80-97) 04/10/19 04:23 MCH 26 pg (27-31) L 04/10/19 04:23 MCHC 31 g/dL (31-36) 04/10/19 04:23 RDW 15 % (10-15) 04/10/19 04:23 Plt Count 254 10^3/uL (150-450) 04/10/19 04:23 MPV 8.4 fL (7.4-10.4) 04/10/19 04:23 Sodium 139 mmol/L (135-145) 04/10/19 04:23 Potassium 4.1 mmol/L (3.5-5.0) 04/10/19 04:23 Chloride 107 mmol/L (101-111) 04/10/19 04:23 Carbon Dioxide 27 mmol/L (22-32) 04/10/19 04:23 Anion Gap 5 mmol/L (2-11) 04/10/19 04:23 BUN 21 mg/dL (6-24) 04/10/19 04:23 Creatinine 1.13 mg/dL (0.51-0.95) H 04/10/19 04:23 Est GFR ( Amer) 60.9 (>60) 04/10/19 04:23 Est GFR (Non-Af Amer) 50.4 (>60) 04/10/19 04:23 BUN/Creatinine Ratio 18.6 (8-20) 04/10/19 04:23 Glucose 115 mg/dL (70-100) H 04/10/19 04:23 POC Glucose (mg/dL) 162 mg/dL (70-100) H 04/11/19 07:49 Calcium 8.3 mg/dL (8.6-10.3) L 04/10/19 04:23 Vancomycin Trough 22.9 mcg/mL 04/11/19 06:50
[2019-04-11] MEDS: Vancomycin(*) 1,250 MG in NS 0.9% 250 ML* 250 ML IVPB SCH (12:58)
[2019-04-11] MEDS: Rivaroxaban TAB(*) 15 MG PO SCH (18:32)
[2019-04-12] MEDS: Vancomycin(*) 1,250 MG in NS 0.9% 250 ML* 250 ML IVPB SCH ×2 (01:26→12:11)
[2019-04-12 05:15] LABS: ABS Eosinophils 0.2 10^3/ul (0-0.6); ABS Lymphocytes 1.5 10^3/ul (1.0-4.8); ABS Monocytes 0.5 10^3/ul (0-0.8); ABS Neutrophils 2.9 10^3/ul (1.5-7.7); Eosinophil % 4.8 %; Hematocrit 34 % (35-47); Hemoglobin 10.9 g/dL (12.0-16.0); Lymphocyte % 28.3 %; Mean Corpuscular HGB Conc 32 g/dL (31-36); Mean Corpuscular Hemoglobin 26 pg (27-31); Mean Corpuscular Volume 82 fL (80-97); Mean Platelet Volume 8.1 fL (7.4-10.4); Platelet Count 252 10^3/uL (150-450); Red Blood Count 4.22 10^6 /uL (3.70-4.87); Red Cell Distribution Width 15 % (10-15); White Blood Count 5.2 10^3/uL (3.5-10.8)
[2019-04-12 05:28] LABS: Calcium 8.2 mg/dL (8.6-10.3); Potassium 4.1 mmol/L (3.5-5.0)
[2019-04-12 05:34] LABS: BUN/Creatinine Ratio 18.4 (8-20); EGFR African American 60.3 (>60); EGFR Non-African American 49.9 (>60)
[2019-04-12] MEDS: Acetaminophen TAB* 325 MG PO SCH ×3 (06:23→21:23)
[2019-04-12] MEDS: FLUoxetine CAP* 20 MG PO SCH (09:16)
[2019-04-12] MEDS: Metoprolol Succinate XL TAB* 25 MG PO SCH ×2 (09:16→21:22)
[2019-04-12] MEDS: Docusate CAP* 100 MG PO SCH ×2 (09:16→21:23)
[2019-04-12] MEDS: Insulin GLARGINE(*) 1 UNITS UNIT SUBCUT SCH (09:16)
[2019-04-12] MEDS: Vitamin THERAPEUTIC TAB PO SCH (09:16)
[2019-04-12] MEDS: Insulin LISPRO* 1 UNITS UNIT SUBCUT SCH ×4 (09:16→21:51)
[2019-04-12] MEDS: Gabapentin CAP(*) 300 MG PO SCH ×3 (09:16→21:21)
--- NOTE | 2019-04-12 15:36 | PN ---
Progress Note - Progress Note Date of Service: 04/12/19 SOAP: Subjective: []Pt seen at bedside. She feels well, no foot pain. Denies CP, SOB, dizziness, nausea. Objective: []Gen: NAD LLE: Vac suctioning well. No erythema around dressing. Able to f/e digits, insensate distally which is baseline. Cap refill roughly 3 sec. Vac changed. Wound measures 12x3x2 cm. Wound base with slough, 20% granulation tissue, very small amount of bleeding. Calves supple and nontender Assessment: []Ischemic chronic wound, left lateral foot; previous ray amputation. OPERATIVE PROCEDURE: Sharp debridement, left lateral forefoot wound with 3 L pulsatile lavage and VAC dressing application. Plan: []Heel WB LLE Xarelto 15 mg qd ( home dose) Angio not needed. [facility] need to see [facility] [place] [facility] mgmt of abx. Vac changed today. Will need repeat change tuesday or tuesday then likely can [place] plan. Vital Signs Temp 97.7 F 04/12/19 15:32 Pulse 63 04/12/19 15:32 Resp 16 04/12/19 15:32 BP 140/75 04/12/19 15:32 Pulse Ox 96 04/12/19 15:32 Intake & Output 04/11/19 04/12/19 04/12/19 18:59 06:59 18:59 Intake Total 2254 525 0096 Output Total 700 500 Balance 168 531 1219 Intake: IV Fluids 40 310 20 ABX - VANCOMYCIN 285 NS (0.9%) 40 25 20 IVPB 290 290 ABX - VANCOMYCIN 290 290 Oral 765 621 5128 Output: Urine 700 500 Other: Estimated Void Large Date of Last Bowel 04/12/19 Movement # Bowel Movements 0 Estimated Stool Amount Medium # Voids 2 Laboratory Last Values WBC 5.2 10^3/uL (3.5-10.8) 04/12/19 05:02 RBC 4.22 10^6 /uL (3.70-4.87) 04/12/19 05:02 Hgb 10.9 g/dL (12.0-16.0) L 04/12/19 05:02 Hct 34 % (35-47) L 04/12/19 05:02 MCV 82 fL (80-97) 04/12/19 05:02 MCH 26 pg (27-31) L 04/12/19 05:02 MCHC 32 g/dL (31-36) 04/12/19 05:02 RDW 15 % (10-15) 04/12/19 05:02 Plt Count 252 10^3/uL (150-450) 04/12/19 05:02 MPV 8.1 fL (7.4-10.4) 04/12/19 05:02 Neut % (Auto) 55.9 % 04/12/19 05:02 Lymph % (Auto) 28.3 % 04/12/19 05:02 [place] % (Auto) 10.2 % 04/12/19 05:02 Eos % (Auto) 4.8 % 04/12/19 05:02 Baso % (Auto) 0.8 % 04/12/19 05:02 Absolute Neuts (auto) 2.9 10^3/ul (1.5-7.7) 04/12/19 05:02 Absolute Lymphs (auto) 1.5 10^3/ul (1.0-4.8) 04/12/19 05:02 Absolute Monos (auto) 0.5 10^3/ul (0-0.8) 04/12/19 05:02 Absolute Eos (auto) 0.2 10^3/ul (0-0.6) 04/12/19 05:02 Absolute Basos (auto) 0.0 10^3/ul (0-0.2) 04/12/19 05:02 Absolute Nucleated RBC 0.0 10^3/ul 04/12/19 05:02 Nucleated RBC % 0.0 04/12/19 05:02 Sodium 141 mmol/L (135-145) 04/12/19 05:02 Potassium 4.1 mmol/L (3.5-5.0) 04/12/19 05:02 Chloride 111 mmol/L (101-111) 04/12/19 05:02 Carbon Dioxide 26 mmol/L (22-32) 04/12/19 05:02 Anion Gap 4 mmol/L (2-11) 04/12/19 05:02 BUN 21 mg/dL (6-24) 04/12/19 05:02 Creatinine 1.14 mg/dL (0.51-0.95) H 04/12/19 05:02 Est GFR ( Amer) 60.3 (>60) 04/12/19 05:02 Est GFR (Non-Af Amer) 49.9 (>60) 04/12/19 05:02 BUN/Creatinine Ratio 18.4 (8-20) 04/12/19 05:02 Glucose 133 mg/dL (70-100) H 04/12/19 05:02 POC Glucose (mg/dL) 152 mg/dL (70-100) H 04/12/19 12:13 Calcium 8.2 mg/dL (8.6-10.3) L 04/12/19 05:02 Vancomycin Trough 22.9 mcg/mL 04/11/19 06:50
[2019-04-12] MEDS: traMADol TAB* 50 MG PO PRN (17:01)
[2019-04-12] MEDS: Rivaroxaban TAB(*) 15 MG PO SCH (17:01)
--- NOTE | 2019-04-12 17:29 | PN ---
Subjective Date of Service: 04/12/19 Interval History: Pt is upset that she cannot go home till after Tuesday. no new complaints Objective Active Medications: Acetaminophen (Tylenol Tab*) 975 mg PO Q8HR [facility] Last Admin: 04/12/19 14:04 Dose: 975 mg Bisacodyl (Dulcolax Supp*) 10 mg [place] DAILY PRN PRN Reason: CONSTIPATION Cyclobenzaprine HCl (Flexeril Tab*) 10 mg PO Q6H PRN PRN Reason: SPASMS Last Admin: 04/10/19 16:53 Dose: 10 mg Dextrose (D50w Syringe 50 Ml*) 12.5 gm IV PUSH .FOR FS < 60 - SS PRN PRN Reason: FS < 60 Diphenhydramine HCl (Benadryl Iv*) 25 mg IV Q6H PRN PRN Reason: PRURITIS Diphenhydramine HCl (Benadryl Po*) 25 mg PO Q6H PRN PRN Reason: PRURITIS Docusate Sodium (Colace Cap*) 100 mg PO BID [facility] Last Admin: 04/12/19 09:16 Dose: 100 mg Fluoxetine HCl (Prozac Cap*) 20 mg PO QAM [facility] Last Admin: 04/12/19 09:16 Dose: 20 mg Gabapentin (Neurontin Cap(*)) 300 mg PO TID [facility] Last Admin: 04/12/19 14:04 Dose: 300 mg Vancomycin HCl 1,250 mg/ (Sodium Chloride) 250 mls @ 166.667 mls/hr IVPB Q12H [facility] Last Admin: 04/12/19 12:11 Dose: 166.667 mls/hr Insulin Glargine (Lantus(*)) 25 units SUBCUT Q24H [facility] Last Admin: 04/12/19 09:16 Dose: 25 unit Insulin Human Lispro (Humalog*) 0 units SUBCUT ACHS [facility]; Protocol Last Admin: 04/12/19 13:05 Dose: 2 units Lactulose (Lactulose*) 30 ml PO BID PRN PRN Reason: CONSTIPATION Magnesium Hydroxide (Milk Of Magnesia Liq*) 30 ml PO Q6H PRN PRN Reason: CONSTIPATION Metoprolol Succinate (Toprol Xl Tab*) 25 mg PO BID [facility] Last Admin: 04/12/19 09:16 Dose: 25 mg Morphine Sulfate (Morphine Inj (Syringe))*) 2 mg IV Q4H PRN PRN Reason: Pain - Unrelieved Multivitamins (Theragran Tab*) 1 tab PO DAILY [facility] Last Admin: 04/12/19 09:16 Dose: 1 tab Ondansetron HCl (Zofran Inj*) 4 mg IV Q6H PRN PRN Reason: NAUSEA Ondansetron HCl (Zofran Odt Tab*) 4 mg PO Q6H PRN PRN Reason: NAUSEA Oxycodone HCl (Roxycodone Tab*) 10 mg PO Q4H PRN PRN Reason: Pain - Breakthrough Oxycodone/Acetaminophen (Percocet 5/325 Tab*) 1 tab PO Q4H PRN PRN Reason: PAIN - MODERATE Oxycodone/Acetaminophen (Percocet 5/325 Tab*) 2 tab PO Q4H PRN PRN Reason: PAIN - SEVERE Last Admin: 04/09/19 14:21 Dose: 2 tab Pharmacy Consult (Vancomycin Per Pharmacy*) 1 note FOLLOW UP . PRN PRN Reason: PER PROTOCOL Pharmacy Profile Note (Vancomycin Trough Check) 1 note FOLLOW UP 1230 ONE Stop: 04/13/19 12:31 Polyethylene Glycol/Electrolytes (Miralax (17 Gm Dose Archie)) 17 gm PO DAILY PRN PRN Reason: Constipation Rivaroxaban (Xarelto(*)) 15 mg PO QPM [facility] Last Admin: 04/12/19 17:01 Dose: 15 mg Tramadol HCl (Ultram*) 50 mg PO Q6HR PRN PRN Reason: PAIN - MODERATE Last Admin: 04/12/19 17:01 Dose: 50 mg Trazodone HCl (Desyrel Tab*) 25 mg PO BEDTIME PRN PRN Reason: insomnia Vital Signs - 8 hr 04/12/19 04/12/19 04/12/19 10:52 11:37 14:04 Temperature 98.9 F Pulse Rate 89 Respiratory 16 19 18 Rate Blood Pressure 122/62 (mmHg) O2 Sat by Pulse 96 Oximetry 04/12/19 04/12/19 04/12/19 15:32 16:16 17:01 Temperature 97.7 F Pulse Rate 63 Respiratory 16 16 18 Rate Blood Pressure 140/75 (mmHg) O2 Sat by Pulse 96 Oximetry Oxygen Devices in Use Now: None Appearance: 53 yo F, obese in NAD, AAOx3 Eyes: No Scleral Icterus, PERRLA Ears/Nose/Mouth/Throat: NL Teeth, Lips, Gums, Mucous Membranes Moist Neck: NL Appearance and Movements; NL JVP, Trachea Midline Respiratory: Symmetrical Chest Expansion and Respiratory Effort, Clear to Auscultation Cardiovascular: NL Sounds; No Murmurs; No JVD, RRR Abdominal: NL Sounds; No Tenderness; No Distention Lymphatic: No Cervical Adenopathy Extremities: No Clubbing, Cyanosis, - - b/l pittting edema unchanged, left foot with Vac dressing in place Neurological: Alert and Oriented x 3, NL Muscle Strength and Tone Result Diagrams: 04/12/19 05:02 04/12/19 05:02 Assess/Plan/Problems-Billing Assessment: 53yo female with a PMH for DM II, Endocarditis with AVR, PAF, morbid obesity, here with nonhealing left foot wound after left fifth ray amputation on 02/12/19 and now Vac dressing placed on 04/09/19 - Patient Problems (1) Wound of left foot Comment: cont Vanc for now as per ID As per d/w ortho-pt will need Vac changed Tuesday or Tuesday (2) Chronic kidney disease Comment: -stable with Cr at baseline (3) HTN (hypertension) Comment: Continue Metoprolol. (4) Morbid obesity Comment: BMI 55 (5) Type 2 diabetes mellitus Comment: -controlled, -continue lantus 25u with SSI -resume Xultophy at D/C and F/U Endocrinology (6) Atrial fibrillation Comment: -paryoxysmal -continue Xarelto, metoprolol (7) Normocytic anemia Comment: Hb at baseline in the past 2 mos (8) DVT prophylaxis Comment: -continue xarelto Status and Disposition: Medicine consult, will follow
[2019-04-12] MEDS: Cyclobenzaprine TAB* 10 MG PO PRN (21:51)
[2019-04-13] MEDS: Vancomycin(*) 1,250 MG in NS 0.9% 250 ML* 250 ML IVPB SCH ×2 (01:09→13:18)
[2019-04-13] MEDS: traMADol TAB* 50 MG PO PRN ×2 (01:21→20:39)
[2019-04-13] MEDS: traZODone TAB* 50 MG TAB PO PRN ×2 (01:22→20:40)
[2019-04-13] MEDS: Acetaminophen TAB* 325 MG PO SCH ×3 (06:04→22:57)
[2019-04-13] MEDS: Docusate CAP* 100 MG PO SCH ×2 (07:57→20:39)
[2019-04-13] MEDS: Gabapentin CAP(*) 300 MG PO SCH ×3 (07:57→20:37)
[2019-04-13] MEDS: Metoprolol Succinate XL TAB* 25 MG PO SCH ×2 (07:57→20:39)
[2019-04-13] MEDS: FLUoxetine CAP* 20 MG PO SCH (07:57)
[2019-04-13] MEDS: Vitamin THERAPEUTIC TAB PO SCH (07:57)
--- NOTE | 2019-04-13 08:42 | PN ---
PROGRESS NOTE: DATE OF VISIT: 04/13/19 HISTORY: Karma is seen in the room 353. She is supine in a bariatric bed. I removed the dressing from her left foot. She is unaware that there have been any VAC changes in surgery. The wound itself is unchanged in terms of depth or size. Very little granulation tissue noted and the plantar flap appears somewhat ischemic. Betadine dressing is applied now and the VAC will be reapplied later in the day when the supplies are available. I discussed with Karma the problem with the foot and it appears that she has marginal wound healing potential, also it appears from the Vascular Radiology evaluation that angiography would be difficult for her given her massive size, particularly in the midportions of her body. We will see how the healing responds over the next 2 to 3 days given additional VAC coverage. [id number]/CPS #: [id number] MTDD
--- NOTE | 2019-04-13 08:53 | PN ---
Progress Note - Progress Note Date of Service: 04/13/19 SOAP: Subjective: CC: Non-healing wound to the left lateral foot HPI: Ms. Mnasfield is a 53 yo female with PMH significant for DM2, peripheral neuropathy, diabetic retinopathy, TULIO, endocarditis S/P AVR, osteomyelitis, P afib, HTN, and morbid obesity; who presented to the hospital with a non-healing wound to the left lateral foot after a left 5th ray amputation in January 2019. S/P debridement and wound vac placement. Denies fever, chills, nausea, vomiting, diarrhea, or pain. She is anxious for discharge to home. Objective: Vital Signs - 8 hr 04/13/19 04/13/19 04/13/19 07:57 08:00 08:30 Temperature 97.4 F Pulse Rate 58 Respiratory 18 18 20 Rate Blood Pressure 133/44 (mmHg) O2 Sat by Pulse 98 Oximetry Physical Exam: General: NAD, sitting up on the side of the bed Neurological: Alert and Oriented HEENT: Moist MM Cardiovascular: Heart rate regular Respiratory: Lung sounds clear Abdominal: Bowel sounds present; ABD soft, non tender and obese MSK: FAY Skin: No rash. JONH wrap DSG to the left foot; clean, dry and intact Laboratory Last Values WBC 5.2 10^3/uL (3.5-10.8) 04/12/19 05:02 RBC 4.22 10^6 /uL (3.70-4.87) 04/12/19 05:02 Hgb 10.9 g/dL (12.0-16.0) L 04/12/19 05:02 Hct 34 % (35-47) L 04/12/19 05:02 MCV 82 fL (80-97) 04/12/19 05:02 MCH 26 pg (27-31) L 04/12/19 05:02 MCHC 32 g/dL (31-36) 04/12/19 05:02 RDW 15 % (10-15) 04/12/19 05:02 Plt Count 252 10^3/uL (150-450) 04/12/19 05:02 MPV 8.1 fL (7.4-10.4) 04/12/19 05:02 Neut % (Auto) 55.9 % 04/12/19 05:02 Lymph % (Auto) 28.3 % 04/12/19 05:02 [place] % (Auto) 10.2 % 04/12/19 05:02 Eos % (Auto) 4.8 % 04/12/19 05:02 Baso % (Auto) 0.8 % 04/12/19 05:02 Absolute Neuts (auto) 2.9 10^3/ul (1.5-7.7) 04/12/19 05:02 Absolute Lymphs (auto) 1.5 10^3/ul (1.0-4.8) 04/12/19 05:02 Absolute Monos (auto) 0.5 10^3/ul (0-0.8) 04/12/19 05:02 Absolute Eos (auto) 0.2 10^3/ul (0-0.6) 04/12/19 05:02 Absolute Basos (auto) 0.0 10^3/ul (0-0.2) 04/12/19 05:02 Absolute Nucleated RBC 0.0 10^3/ul 04/12/19 05:02 Nucleated RBC % 0.0 04/12/19 05:02 Sodium 141 mmol/L (135-145) 04/12/19 05:02 Potassium 4.1 mmol/L (3.5-5.0) 04/12/19 05:02 Chloride 111 mmol/L (101-111) 04/12/19 05:02 Carbon Dioxide 26 mmol/L (22-32) 04/12/19 05:02 Anion Gap 4 mmol/L (2-11) 04/12/19 05:02 BUN 21 mg/dL (6-24) 04/12/19 05:02 Creatinine 1.14 mg/dL (0.51-0.95) H 04/12/19 05:02 Est GFR ( Amer) 60.3 (>60) 04/12/19 05:02 Est GFR (Non-Af Amer) 49.9 (>60) 04/12/19 05:02 BUN/Creatinine Ratio 18.4 (8-20) 04/12/19 05:02 Glucose 133 mg/dL (70-100) H 04/12/19 05:02 POC Glucose (mg/dL) 132 mg/dL (70-100) H 04/13/19 07:57 Calcium 8.2 mg/dL (8.6-10.3) L 04/12/19 05:02 Vancomycin Trough 22.9 mcg/mL 04/11/19 06:50 Assessment: 1. Left foot non-healing wound with hx chronic osteomyelitis. S/P left 5th ray amputation in 01/2019, incision never fully healed. She completed an extended course of IV ABX in February 2019. Previous cultures with no growth, and pathology with ulcer/ulcer bed, cutaneous margin of resection viable, bone with reactive change. Now S/P debridement and vac placement, POD #4. Afebrile, no leukocytosis. Differential Dx: Infection vs secondary to underlying issue such as poor circulation and/or DM (microvascular disease). Seen by Dr. Quezada this admission. 2. DM2. With peripheral neuropathy and retinopathy. 3. TULIO. 4. Morbid obesity. BMI 55.7 5. History of right 1st toe osteomyelitis. S/P right 1st ray amputation. 6. History of infective endocarditits. S/P AVR. Plan: Discontinue Vancomycin and switch to Doxycycline 100 mg PO BID to complete a 14 day course of ABX. ABX day 4. Followup with ID outpatient.
[2019-04-13] MEDS: Insulin LISPRO* 1 UNITS UNIT SUBCUT SCH ×4 (09:26→20:35)
[2019-04-13] MEDS: Insulin GLARGINE(*) 1 UNITS UNIT SUBCUT SCH (09:27)
[2019-04-13] MEDS ORDERED: Vancomycin Trough Check NOTE FOLLOW UP ONE (12:30)
--- NOTE | 2019-04-13 14:24 | PN ---
Subjective Date of Service: 04/13/19 Interval History: Pt is still upset that she needs to stay for the weekend Pt has no new complaints Objective Active Medications: Acetaminophen (Tylenol Tab*) 975 mg PO Q8HR [facility] Last Admin: 04/13/19 13:43 Dose: 975 mg Bisacodyl (Dulcolax Supp*) 10 mg [place] DAILY PRN PRN Reason: CONSTIPATION Cyclobenzaprine HCl (Flexeril Tab*) 10 mg PO Q6H PRN PRN Reason: SPASMS Last Admin: 04/12/19 21:51 Dose: 10 mg Dextrose (D50w Syringe 50 Ml*) 12.5 gm IV PUSH .FOR FS < 60 - SS PRN PRN Reason: FS < 60 Diphenhydramine HCl (Benadryl Iv*) 25 mg IV Q6H PRN PRN Reason: PRURITIS Diphenhydramine HCl (Benadryl Po*) 25 mg PO Q6H PRN PRN Reason: PRURITIS Docusate Sodium (Colace Cap*) 100 mg PO BID [facility] Last Admin: 04/13/19 07:57 Dose: 100 mg Fluoxetine HCl (Prozac Cap*) 20 mg PO QAM [facility] Last Admin: 04/13/19 07:57 Dose: 20 mg Gabapentin (Neurontin Cap(*)) 300 mg PO TID [facility] Last Admin: 04/13/19 13:43 Dose: 300 mg Vancomycin HCl 750 mg/ Sodium (Chloride) 250 mls @ 166.667 mls/hr IVPB Q12H [facility] Insulin Glargine (Lantus(*)) 25 units SUBCUT Q24H [facility] Last Admin: 04/13/19 09:27 Dose: 25 unit Insulin Human Lispro (Humalog*) 0 units SUBCUT ACHS [facility]; Protocol Last Admin: 04/13/19 12:39 Dose: 2 units Lactulose (Lactulose*) 30 ml PO BID PRN PRN Reason: CONSTIPATION Magnesium Hydroxide (Milk Of Magnesia Liq*) 30 ml PO Q6H PRN PRN Reason: CONSTIPATION Metoprolol Succinate (Toprol Xl Tab*) 25 mg PO BID [facility] Last Admin: 04/13/19 07:57 Dose: 25 mg Morphine Sulfate (Morphine Inj (Syringe))*) 2 mg IV Q4H PRN PRN Reason: Pain - Unrelieved Multivitamins (Theragran Tab*) 1 tab PO DAILY [facility] Last Admin: 04/13/19 07:57 Dose: 1 tab Ondansetron HCl (Zofran Inj*) 4 mg IV Q6H PRN PRN Reason: NAUSEA Ondansetron HCl (Zofran Odt Tab*) 4 mg PO Q6H PRN PRN Reason: NAUSEA Oxycodone HCl (Roxycodone Tab*) 10 mg PO Q4H PRN PRN Reason: Pain - Breakthrough Oxycodone/Acetaminophen (Percocet 5/325 Tab*) 1 tab PO Q4H PRN PRN Reason: PAIN - MODERATE Oxycodone/Acetaminophen (Percocet 5/325 Tab*) 2 tab PO Q4H PRN PRN Reason: PAIN - SEVERE Last Admin: 04/09/19 14:21 Dose: 2 tab Pharmacy Consult (Vancomycin Per Pharmacy*) 1 note FOLLOW UP . PRN PRN Reason: PER PROTOCOL Pharmacy Profile Note (Vancomycin Trough Check) 1 note FOLLOW UP 929 Stop: 04/15/19 09:31 Polyethylene Glycol/Electrolytes (Miralax (17 Gm Dose [facility])) 17 gm PO DAILY PRN PRN Reason: Constipation Rivaroxaban (Xarelto(*)) 15 mg PO QPM [facility] Last Admin: 04/12/19 17:01 Dose: 15 mg Tramadol HCl (Ultram*) 50 mg PO Q6HR PRN PRN Reason: PAIN - MODERATE Last Admin: 04/13/19 01:21 Dose: 50 mg Trazodone HCl (Desyrel Tab*) 25 mg PO BEDTIME PRN PRN Reason: insomnia Last Admin: 04/13/19 01:22 Dose: 25 mg Vital Signs - 8 hr 04/13/19 04/13/19 04/13/19 07:57 08:00 08:30 Temperature 97.4 F Pulse Rate 58 Respiratory 18 18 20 Rate Blood Pressure 133/44 (mmHg) O2 Sat by Pulse 98 Oximetry 04/13/19 04/13/19 04/13/19 11:29 13:43 13:44 Temperature 97.4 F Pulse Rate 58 Respiratory 18 18 18 Rate Blood Pressure 103/45 (mmHg) O2 Sat by Pulse 100 Oximetry Oxygen Devices in Use Now: None Appearance: 53 yo f in nAD, aaOx3 Eyes: No Scleral Icterus, PERRLA Ears/Nose/Mouth/Throat: NL Teeth, Lips, Gums, Mucous Membranes Moist Neck: NL Appearance and Movements; NL JVP, Trachea Midline Respiratory: Symmetrical Chest Expansion and Respiratory Effort, Clear to Auscultation Cardiovascular: NL Sounds; No Murmurs; No JVD Abdominal: NL Sounds; No Tenderness; No Distention Lymphatic: No Cervical Adenopathy Extremities: No Clubbing, Cyanosis, - - +2 pitting ankle edema b/l. Left foot with Vac dressing in place Skin: No Nodules or Sclerosis Neurological: Alert and Oriented x 3, NL Muscle Strength and Tone Result Diagrams: 04/12/19 05:02 04/12/19 05:02 Assess/Plan/Problems-Billing Assessment: 53yo female with a PMH for DM II, Endocarditis with AVR, PAF, morbid obesity, here with nonhealing left foot wound after left fifth ray amputation on 02/12/19 and now Vac dressing placed on 04/09/19 - Patient Problems (1) Wound of left foot Comment: Vanc switched to doxy as per ID As per d/w ortho-pt will need Vac dressing changed Tuesday or Tuesday (2) Chronic kidney disease Comment: -stable with Cr at baseline (3) HTN (hypertension) Comment: Continue Metoprolol. (4) Morbid obesity Comment: BMI 55 (5) Type 2 diabetes mellitus Comment: -controlled, -continue lantus 25u with SSI -resume Xultophy at D/C and F/U Endocrinology (6) Atrial fibrillation Comment: -paryoxysmal -continue Xarelto, metoprolol (7) Normocytic anemia Comment: Hb at baseline in the past 2 mos (8) DVT prophylaxis Comment: -continue xarelto Status and Disposition: Medicine consult, will follow
[2019-04-13] MEDS: Rivaroxaban TAB(*) 15 MG PO SCH (18:07)
[2019-04-13] MEDS: Polyethylene Glycol 3350* 17 GM PACKET PO PRN (20:37)
[2019-04-13] MEDS: Cyclobenzaprine TAB* 10 MG PO PRN (20:38)
[2019-04-14] MEDS: Vancomycin(*) 750 MG in NS 0.9% 250 ML* 250 ML IVPB SCH ×3 (02:37→22:36)
[2019-04-14] MEDS: Acetaminophen TAB* 325 MG PO SCH ×3 (06:27→22:43)
[2019-04-14] MEDS: Insulin GLARGINE(*) 1 UNITS UNIT SUBCUT SCH (08:53)
[2019-04-14] MEDS: Docusate CAP* 100 MG PO SCH ×2 (08:54→22:43)
[2019-04-14] MEDS: Gabapentin CAP(*) 300 MG PO SCH ×3 (08:54→22:42)
[2019-04-14] MEDS: Vitamin THERAPEUTIC TAB PO SCH (08:54)
[2019-04-14] MEDS: Metoprolol Succinate XL TAB* 25 MG PO SCH ×2 (08:54→22:43)
[2019-04-14] MEDS: FLUoxetine CAP* 20 MG PO SCH (08:54)
[2019-04-14] MEDS: Insulin LISPRO* 1 UNITS UNIT SUBCUT SCH ×4 (08:54→22:41)
--- NOTE | 2019-04-14 12:01 | PN ---
Progress Note - Progress Note Date of Service: 04/14/19 SOAP: Subjective: Pt seen at bedside. She is sleeping, but easily aroused. Vital Signs: Temp Pulse Resp BP Pulse Ox 98.7 F 61 18 123/67 98 04/14/19 07:29 04/14/19 07:29 04/14/19 08:54 04/14/19 07:29 04/14/19 07:29 Objective: Wound vac intact, suctioning well. Calve swelling noted. Assessment: Ischemic chronic wound, left lateral foot; Previous ray amp Plan: Heel WB LLE Xeralto 15mg qd (home dose) Vac change either Tuesday or Tuesday
[2019-04-14] MEDS: Rivaroxaban TAB(*) 15 MG PO SCH (17:26)
[2019-04-15] MEDS: Acetaminophen TAB* 325 MG PO SCH ×3 (06:00→21:34)
[2019-04-15] MEDS: Insulin LISPRO* 1 UNITS UNIT SUBCUT SCH ×4 (09:27→20:42)
[2019-04-15] MEDS: Insulin GLARGINE(*) 1 UNITS UNIT SUBCUT SCH (09:27)
[2019-04-15] MEDS: Metoprolol Succinate XL TAB* 25 MG PO SCH ×2 (09:28→20:32)
[2019-04-15] MEDS: FLUoxetine CAP* 20 MG PO SCH (09:28)
[2019-04-15] MEDS: Vitamin THERAPEUTIC TAB PO SCH (09:28)
[2019-04-15] MEDS: Gabapentin CAP(*) 300 MG PO SCH ×3 (09:28→20:32)
[2019-04-15] MEDS: Docusate CAP* 100 MG PO SCH ×2 (09:28→20:32)
[2019-04-15] MEDS ORDERED: Vancomycin Trough Check NOTE FOLLOW UP ONE (09:30)
[2019-04-15] MEDS: Polyethylene Glycol 3350* 17 GM PACKET PO PRN (09:32)
[2019-04-15 09:50] LABS: EGFR African American 59.7 (>60); EGFR Non-African American 49.4 (>60)
[2019-04-15 10:17] LABS: Vancomycin Trough 18.9 mcg/mL
[2019-04-15] MEDS: Vancomycin(*) 750 MG in NS 0.9% 250 ML* 250 ML IVPB SCH ×2 (10:25→21:35)
--- NOTE | 2019-04-15 13:23 | PN ---
Progress Note - Progress Note Date of Service: 04/15/19 SOAP: Subjective: Pt seen and examined at bedside. No complaint of pain. Denies CP , SOB, F/C. Vital Signs: Temp Pulse Resp BP Pulse Ox 98.2 F 64 18 124/62 94 04/15/19 12:04 04/15/19 12:04 04/15/19 12:06 04/15/19 12:04 04/15/19 12:04 Objective: A&O x3, NAD Wound VAC intact and suctioning well. Assessment: Ischemic chonic wound, left lateral foot, previous ray amp Plan: Heel WB LLE Xeralto (home dose) Wound vac change Tuesday
[2019-04-15] MEDS: Rivaroxaban TAB(*) 15 MG PO SCH (17:44)
[2019-04-16] MEDS: Acetaminophen TAB* 325 MG PO SCH ×3 (05:47→22:07)
--- NOTE | 2019-04-16 09:49 | PN ---
Progress Note - Progress Note Date of Service: 04/16/19 SOAP: Subjective: CC: Non-healing wound to the left lateral foot HPI: Ms. Mansfield is a 53 yo female with PMH significant for DM2, peripheral neuropathy, diabetic retinopathy, TULIO, endocarditis S/P AVR, osteomyelitis, P afib, HTN, and morbid obesity; who presented to the hospital with a non-healing wound to the left lateral foot after a left 5th ray amputation in January 2019. S/P debridement and wound vac placement. Denies fever, chills, nausea, vomiting, diarrhea, or pain. Objective: Vital Signs - 8 hr 04/16/19 04/16/19 04:05 08:17 Temperature 98 F 97.5 F Pulse Rate 56 79 Respiratory 18 19 Rate Blood Pressure 123/65 152/74 (mmHg) O2 Sat by Pulse 95 95 Oximetry Physical Exam: General: NAD, laying in bed Neurological: Alert and Oriented HEENT: Moist MM Cardiovascular: Heart rate regular Respiratory: Lung sounds clear Abdominal: Bowel sounds present; ABD soft, non tender and obese MSK: FAY Skin: No rash. JONH wrap DSG to the left foot with wound vac; clean, dry and intact Laboratory Tests 04/12/19 04/15/19 05:02 09:26 WBC 5.2 Hgb 10.9 L Hct 34 L Plt Count 252 BUN 20 Creatinine 1.15 H Assessment: 1. Left foot non-healing wound with hx chronic osteomyelitis. S/P left 5th ray amputation in 01/2019, incision never fully healed. She completed an extended course of IV ABX in February 2019. Previous cultures with no growth, and pathology with ulcer/ulcer bed, cutaneous margin of resection viable, bone with reactive change. Now S/P debridement and vac placement, POD #7. Afebrile, no leukocytosis. Differential Dx: Infection vs secondary to underlying issue such as poor circulation and/or DM (microvascular disease). Seen by Dr. Quezada this admission. 2. DM2. With peripheral neuropathy and retinopathy. 3. TULIO. 4. Morbid obesity. BMI 55.7 5. History of right 1st toe osteomyelitis. S/P right 1st ray amputation. 6. History of infective endocarditits. S/P AVR. Plan: Discontinue Vancomycin and switch to Doxycycline 100 mg PO BID to complete a 14 day course of ABX. ABX day 7. Agree with vascular referral. Followup with ID outpatient.
[2019-04-16] MEDS: Gabapentin CAP(*) 300 MG PO SCH ×3 (10:00→20:58)
[2019-04-16] MEDS: Docusate CAP* 100 MG PO SCH ×2 (10:00→20:57)
[2019-04-16] MEDS: Metoprolol Succinate XL TAB* 25 MG PO SCH ×2 (10:00→20:57)
[2019-04-16] MEDS: Insulin LISPRO* 1 UNITS UNIT SUBCUT SCH ×4 (10:00→21:12)
[2019-04-16] MEDS: Insulin GLARGINE(*) 1 UNITS UNIT SUBCUT SCH (10:00)
[2019-04-16] MEDS: Vitamin THERAPEUTIC TAB PO SCH (10:01)
[2019-04-16] MEDS: Vancomycin(*) 750 MG in NS 0.9% 250 ML* 250 ML IVPB SCH (10:01)
[2019-04-16] MEDS: FLUoxetine CAP* 20 MG PO SCH (10:01)
[2019-04-16] MEDS: DOXYcycline CAP(*) 100 MG PO SCH ×2 (10:06→20:58)
--- NOTE | 2019-04-16 16:34 | PN ---
Progress Note - Progress Note Date of Service: 04/16/19 SOAP: Subjective: []Pt seen at bedside. She feels well. No fever, chills, CP, SOB, dizziness or nausea. Objective: []Gen: NAD, nontoxic appearing LLE: Vac suctioning well. No erythema around dressing. Able to f/e digits, insensate distally which is baseline. Cap refill roughly 3 sec. Vac changed. Wound measures roughly 11x4x2 cm. Wound base with slough, no bleeding, inferior margin appears ischemic. Calves supple and nontender Assessment: []Ischemic chronic wound, left lateral foot; previous ray amputation. OPERATIVE PROCEDURE: Sharp debridement, left lateral forefoot wound with 3 L pulsatile lavage and VAC dressing application. Plan: []Heel WB LLE Xarelto 15 mg qd ( home dose) [facility] to see [facility] [place] [facility] mgmt of abx. Doxycycline 100 mg po bid Vac changed today. Can DC home tomorrow. Dr Lucero will assist with setting up with vascular appt in [place] Vital Signs Temp 97.2 F 04/16/19 15:41 Pulse 60 04/16/19 15:41 Resp 18 04/16/19 15:41 BP 137/70 04/16/19 15:41 Pulse Ox 100 04/16/19 15:41 Intake & Output 04/15/19 04/16/19 04/16/19 18:59 06:59 18:59 Intake Total 720 1270 720 Output Total 1400 1200 300 Balance -680 70 420 Intake: IV Fluids 300 ABX - VANCOMYCIN 280 NS (0.9%) 20 IVPB 270 ABX - VANCOMYCIN 270 Oral 420 1000 720 Output: Urine 1400 1200 300 Other: # Bowel Movements 0 1 Estimated Stool Amount Large Laboratory Last Values WBC 5.2 10^3/uL (3.5-10.8) 04/12/19 05:02 RBC 4.22 10^6 /uL (3.70-4.87) 04/12/19 05:02 Hgb 10.9 g/dL (12.0-16.0) L 04/12/19 05:02 Hct 34 % (35-47) L 04/12/19 05:02 MCV 82 fL (80-97) 04/12/19 05:02 MCH 26 pg (27-31) L 04/12/19 05:02 MCHC 32 g/dL (31-36) 04/12/19 05:02 RDW 15 % (10-15) 04/12/19 05:02 Plt Count 252 10^3/uL (150-450) 04/12/19 05:02 MPV 8.1 fL (7.4-10.4) 04/12/19 05:02 Neut % (Auto) 55.9 % 04/12/19 05:02 Lymph % (Auto) 28.3 % 04/12/19 05:02 [place] % (Auto) 10.2 % 04/12/19 05:02 Eos % (Auto) 4.8 % 04/12/19 05:02 Baso % (Auto) 0.8 % 04/12/19 05:02 Absolute Neuts (auto) 2.9 10^3/ul (1.5-7.7) 04/12/19 05:02 Absolute Lymphs (auto) 1.5 10^3/ul (1.0-4.8) 04/12/19 05:02 Absolute Monos (auto) 0.5 10^3/ul (0-0.8) 04/12/19 05:02 Absolute Eos (auto) 0.2 10^3/ul (0-0.6) 04/12/19 05:02 Absolute Basos (auto) 0.0 10^3/ul (0-0.2) 04/12/19 05:02 Absolute Nucleated RBC 0.0 10^3/ul 04/12/19 05:02 Nucleated RBC % 0.0 04/12/19 05:02 Sodium 141 mmol/L (135-145) 04/12/19 05:02 Potassium 4.1 mmol/L (3.5-5.0) 04/12/19 05:02 Chloride 111 mmol/L (101-111) 04/12/19 05:02 Carbon Dioxide 26 mmol/L (22-32) 04/12/19 05:02 Anion Gap 4 mmol/L (2-11) 04/12/19 05:02 BUN 20 mg/dL (6-24) 04/15/19 09:26 Creatinine 1.15 mg/dL (0.51-0.95) H 04/15/19 09:26 Est GFR ( Amer) 59.7 (>60) 04/15/19 09:26 Est GFR (Non-Af Amer) 49.4 (>60) 04/15/19 09:26 BUN/Creatinine Ratio 18.4 (8-20) 04/12/19 05:02 Glucose 133 mg/dL (70-100) H 04/12/19 05:02 POC Glucose (mg/dL) 232 mg/dL (70-100) H 04/16/19 11:45 Calcium 8.2 mg/dL (8.6-10.3) L 04/12/19 05:02 Vancomycin Trough 18.9 mcg/mL 04/15/19 09:26
[2019-04-16] MEDS: Rivaroxaban TAB(*) 15 MG PO SCH (17:55)
[2019-04-17] MEDS: Acetaminophen TAB* 325 MG PO SCH (05:49)
[2019-04-17] MEDS: FLUoxetine CAP* 20 MG PO SCH (09:53)
[2019-04-17] MEDS: Gabapentin CAP(*) 300 MG PO SCH (09:53)
[2019-04-17] MEDS: DOXYcycline CAP(*) 100 MG PO SCH (09:53)
[2019-04-17] MEDS: Vitamin THERAPEUTIC TAB PO SCH (09:53)
[2019-04-17] MEDS: Metoprolol Succinate XL TAB* 25 MG PO SCH (09:53)
[2019-04-17] MEDS: Docusate CAP* 100 MG PO SCH (09:54)
[2019-04-17] MEDS: Insulin LISPRO* 1 UNITS UNIT SUBCUT SCH (10:10)
[2019-04-17] MEDS: Insulin GLARGINE(*) 1 UNITS UNIT SUBCUT SCH (10:10)
[2019-04-17 10:23] LABS: Vancomycin Trough 11.5 mcg/mL
[2019-04-17 10:35] LABS: EGFR African American 55.8 (>60); EGFR Non-African American 46.1 (>60)
[2019-04-17 10:51] VITALS: BP 138/70
--- NOTE | 2019-04-17 11:03 | PN ---
Progress Note - Progress Note Date of Service: 04/17/19 SOAP: Subjective: []Pt seen at bedside. She feels well without CP, SOB, dizziness, nausea. No LLE pain. Objective: [] Gen: NAD, nontoxic appearing LLE: Vac suctioning well. Able to f/e digits, insensate distally which is baseline. Cap refill roughly 3 sec. Calves supple and nontender Assessment: []Ischemic chronic wound, left lateral foot; previous ray amputation. OPERATIVE PROCEDURE: Sharp debridement, left lateral forefoot wound with 3 L pulsatile lavage and VAC dressing application. Plan: []Heel WB LLE Xarelto 15 mg qd ( home dose) [facility] need to see [facility] [place] ID mgmt of abx. Doxycycline 100 mg po bid x 6 more days Vac changed 04/15. Can DC home today. Dr. Lucero will assist with setting up with vascular appt in [place] Vital Signs Temp 98.6 F 04/17/19 10:50 Pulse 85 04/17/19 10:50 Resp 18 04/17/19 10:50 BP 138/70 04/17/19 10:50 Pulse Ox 99 04/17/19 10:50 Intake & Output 04/16/19 04/17/19 04/17/19 18:59 06:59 18:59 Intake Total 720 300 Output Total 300 1100 Balance 420 -800 Intake: Oral 720 300 Output: Urine 300 1100 Other: Date of Last Bowel 04/16/19 Movement # Bowel Movements 1 Estimated Stool Amount Large Large Laboratory Last Values WBC 5.2 10^3/uL (3.5-10.8) 04/12/19 05:02 RBC 4.22 10^6 /uL (3.70-4.87) 04/12/19 05:02 Hgb 10.9 g/dL (12.0-16.0) L 04/12/19 05:02 Hct 34 % (35-47) L 04/12/19 05:02 MCV 82 fL (80-97) 04/12/19 05:02 MCH 26 pg (27-31) L 04/12/19 05:02 MCHC 32 g/dL (31-36) 04/12/19 05:02 RDW 15 % (10-15) 04/12/19 05:02 Plt Count 252 10^3/uL (150-450) 04/12/19 05:02 MPV 8.1 fL (7.4-10.4) 04/12/19 05:02 Neut % (Auto) 55.9 % 04/12/19 05:02 Lymph % (Auto) 28.3 % 04/12/19 05:02 [place] % (Auto) 10.2 % 04/12/19 05:02 Eos % (Auto) 4.8 % 04/12/19 05:02 Baso % (Auto) 0.8 % 04/12/19 05:02 Absolute Neuts (auto) 2.9 10^3/ul (1.5-7.7) 04/12/19 05:02 Absolute Lymphs (auto) 1.5 10^3/ul (1.0-4.8) 04/12/19 05:02 Absolute Monos (auto) 0.5 10^3/ul (0-0.8) 04/12/19 05:02 Absolute Eos (auto) 0.2 10^3/ul (0-0.6) 04/12/19 05:02 Absolute Basos (auto) 0.0 10^3/ul (0-0.2) 04/12/19 05:02 Absolute Nucleated RBC 0.0 10^3/ul 04/12/19 05:02 Nucleated RBC % 0.0 04/12/19 05:02 Sodium 141 mmol/L (135-145) 04/12/19 05:02 Potassium 4.1 mmol/L (3.5-5.0) 04/12/19 05:02 Chloride 111 mmol/L (101-111) 04/12/19 05:02 Carbon Dioxide 26 mmol/L (22-32) 04/12/19 05:02 Anion Gap 4 mmol/L (2-11) 04/12/19 05:02 BUN 25 mg/dL (6-24) H 04/17/19 09:26 Creatinine 1.22 mg/dL (0.51-0.95) H 04/17/19 09:26 Est GFR ( Amer) 55.8 (>60) 04/17/19 09:26 Est GFR (Non-Af Amer) 46.1 (>60) 04/17/19 09:26 BUN/Creatinine Ratio 18.4 (8-20) 04/12/19 05:02 Glucose 133 mg/dL (70-100) H 04/12/19 05:02 POC Glucose (mg/dL) 176 mg/dL (70-100) H 04/16/19 21:04 Calcium 8.2 mg/dL (8.6-10.3) L 04/12/19 05:02 Vancomycin Trough 11.5 mcg/mL 04/17/19 09:26
--- NOTE | 2019-04-17 11:11 | DS ---
Orthopedic Discharge Summary - Discharge Summary Date of Admission:04/09/19 Date of Discharge: 04/17/19 Date of Surgery: 04/09/19 Attending Orthopedic Provider: Dr Lucero Pre-operative Diagnosis: Ischemic chronic wound, left lateral foot; previous ray amputation. OPERATIVE PROCEDURE: Sharp debridement, left lateral forefoot wound with 3 L pulsatile lavage and VAC dressing application. Disposition of Patient: home Home care vs Outpatient services: homecare, VNS Condition of Patient: stable Pain medication RX at discharge: no rx DVT prophylaxis RX at discharge: home dose xarelto 15 mg qd History: MAYITO RENEE is a 53 year old F with Ischemic chronic wound, left lateral foot; previous ray amputation. Hospital Course: MAYITO was admitted to [facility] on 04/09/19. Patient underwent a [Sharp debridement, left lateral forefoot wound with 3 L pulsatile lavage and VAC dressing application.] without complication followed by a brief recovery in PACU and transfer to the Short Stay Surgical Unit in stable condition. Our hospitalist service, infectious disease, vascular, physical therapy and occupational therapy also participated in this patients care. Post op patient felt well, she had 2 bedside wound vac changes with a wound roughly 11x3x2 cm that has slough at the base and ischemic appearing inferior margin. No purulence or erythema about the wound. Vascular saw her, due to body habitus felt angio would be too high risk and rec weight loss and a visit with [facility]. Pt deemed stable for DC home 04/17/19 with home nurses to change dressing q 3 days last vac change 04/16/19. Discharged on oral abx, doxycycline for 6 more days. She will see Dr Lucero and ID next week for follow up. Home Medications Medication Instructions Recorded Confirmed Type Cholecalciferol TAB* [Vitamin D 1,000 units PO QAM 02/10/19 04/09/19 History TAB*] FLUoxetine CAP* [Prozac CAP*] 20 mg PO QAM 02/10/19 04/09/19 History Insulin Degludec/Liraglutide 45 units SUBCUT QAM 02/10/19 04/09/19 History [Xultophy 100 Unit-3.6MG/ml Pen 3 ml x 5 Pens] Metformin ER (NF) [Glucophage ER 750 mg PO QPM 02/10/19 04/09/19 History 750 MG TAB (NF)] Metoprolol Succinate XL TAB* 25 mg PO BID 02/10/19 04/09/19 History [Toprol XL TAB*] Rivaroxaban TAB(*) [Xarelto 15 15 mg PO QPM 02/10/19 04/09/19 History mg(*)] Gabapentin CAP(*) [Neurontin 300 300 mg PO TID #90 cap 02/20/19 04/09/19 Rx CAP(*)] Acetaminophen TAB* [Tylenol TAB*] 975 mg PO Q8HR tab 04/17/19 Rx DOXYcycline CAP(*) [DOXYcycline 100 mg PO BID #12 cap 04/17/19 Rx 100MG CAP(*)] Docusate CAP* [Colace Cap*] 100 mg PO BID #0 cap 04/17/19 Rx Discharge Instructions following Hip Fracture: Activity: * Weight Bearing:[Heel Weight bearing left leg ] * Continue physical therapy and occupational therapy exercises as shown Wound care: * Keep dressing clean, dry and intact, * Home Nursing to change vac sponge every 3 days. Okay if need to change on the 2nd or 4th day rather due to schedule availability. Call Orthopedic office for: * Increased drainage * Redness * Increased pain * Fever Go to ER with shortness of breath or chest pain. Diet: * Regular diet * Increase fluids and fiber to prevent constipation. * Continue to use stool softeners, call office if no bowel motion within 48 hours. Medications See Home Medication List in your packet for medications that you should take after discharge. DVT Prophylaxis: Resume Xarelto 15 mg qd ( home dose) * Be aware that this medication increases bleeding tendency. FOLLOW UP: Follow up with Dr. Lucero] Within [7] days, call for appointment [phone] Will need follow up with [facility], Dr. Lucero can assist you with this referral at your office visit. Follow up with Infectious Disease in 1 week, their office will call for appointment Will need to see [facility] as an outpatient
== END 2019-04-17 11:45 | disposition home health service (06) | DRG 464 ==
LOC: OR 10:01 → SSU 13:53
PROVIDERS: ADMIT Orthopaedic Surgery; ATTEND Orthopaedic Surgery
PROC: 0JBR0ZZ Excision of Left Foot Subcutaneous Tissue and Fascia, Open Approach (ICD-10-PCS; principal; 2019-04-09 12:00)
DX: T87.81 Dehiscence of amputation stump (principal); E11.65 Type 2 diabetes mellitus with hyperglycemia; E11.42 Type 2 diabetes mellitus with diabetic polyneuropathy; Z95.2 Presence of prosthetic heart valve; F32.9 Major depressive disorder, single episode, unspecified; K21.9 Gastro-esophageal reflux disease without esophagitis; E78.5 Hyperlipidemia, unspecified; E11.51 Type 2 diabetes mellitus with diabetic peripheral angiopathy without gangrene; E66.01 Morbid (severe) obesity due to excess calories; E11.319 Type 2 diabetes mellitus with unspecified diabetic retinopathy without macular edema; G47.33 Obstructive sleep apnea (adult) (pediatric); N18.3 Chronic kidney disease, stage 3 (moderate); E11.22 Type 2 diabetes mellitus with diabetic chronic kidney disease; I12.9 Hypertensive chronic kidney disease with stage 1 through stage 4 chronic kidney disease, or unspecified chronic kidney disease; D63.1 Anemia in chronic kidney disease; I48.0 Paroxysmal atrial fibrillation; Z68.43 Body mass index [BMI] 50.0-59.9, adult; Z79.4 Long term (current) use of insulin; Z79.01 Long term (current) use of anticoagulants; Z79.899 Other long term (current) drug therapy; Z86.73 Personal history of transient ischemic attack (TIA), and cerebral infarction without residual deficits; Z89.422 Acquired absence of other left toe(s); Z90.710 Acquired absence of both cervix and uterus; Z87.891 Personal history of nicotine dependence; Z91.19 Patient's noncompliance with other medical treatment and regimen
CPT/HCPCS: 36415; 80048; 80202; 82565; 84520; 85025; 85027; 93922; 93925; A9270-GY; J0690; J2250; J3010; J3370; J3490

== ENCOUNTER 2019-06-08 18:55 | Emergency (ER) | payer OTHER ==
--- NOTE | 2019-06-08 19:04 | ED ---
GI/ HPI - HPI Summary HPI Summary: This patient is a 53 y/o female presenting to [facility] via EMS for abd pain, nausea , and vomiting today. Patient reports her abd pain began today on her left lower abdomen. She notes she has not eaten today.. She states she vomited prior to ambulance arrival and her abdominal pain resolved. She notes she then vomited while in the ambulance. Denies diarrhea, fever, chills, shortness of breath, cough, chest pain. Patient does not remember when was her last bowel movement, but believes it was a couple of days ago. EMS reports patient had 2 episodes of emesis in the ambulance. Finger stick blood glucose of 149 per EMS. PMHx includes DM, valve replacement. PSHx: tubes tied, cholecystectomy, left fifth toe amputated, and right first toe amputated. Denies tobacco, alcohol, or drug use. Medications reviewed. Allergies noted. - History of Current Complaint Chief Complaint: EDNauseaVomitDiarrh Time Seen by Provider: 06/08/19 18:58 Stated Complaint: ABD PAIN PER EMS Hx Obtained From: Patient Hx Last Menstrual Period: 2015 Onset/Duration: Started Hours Ago, Still Present Timing: Lasting Hours Severity: Moderate Current Severity: Mild Pain Intensity: 0 - denies any abd pain Associated Signs and Symptoms: Positive: Nausea, Vomiting, Abdominal Pain. Negative: Constipation, Diarrhea, Fever, Chills, Cough, Chest Pain, Other: - SOB Aggravating Factor(s): Nothing Alleviating Factor(s): Nothing - Additional Pertinent History Primary Care Physician: [id number] - Allergy/Home Medications Allergies/Adverse Reactions: Allergies Allergy/AdvReac Type Severity Reaction Status Date / Time No Known Allergies Allergy Verified 06/08/19 19:03 Home Medications: Home Medications Cholecalciferol TAB* [Vitamin D TAB*] 1,000 units PO QAM 02/10/19 [History Confirmed 06/08/19] FLUoxetine CAP* [Prozac CAP*] 20 mg PO QAM 02/10/19 [History Confirmed 06/08/19] Insulin Degludec/Liraglutide [Xultophy 100 Unit-3.6MG/ml Pen 3 ml x 5 Pens] 45 units SUBCUT QAM 02/10/19 [History Confirmed 06/08/19] Metformin ER (NF) [Glucophage ER 750 MG TAB (NF)] 750 mg PO QPM 02/10/19 [ History Confirmed 06/08/19] Metoprolol Succinate XL TAB* [Toprol XL TAB*] 25 mg PO BID 02/10/19 [History Confirmed 06/08/19] Rivaroxaban TAB(*) [Xarelto 15 mg(*)] 15 mg PO QPM 02/10/19 [History Confirmed 06/08/19] Gabapentin CAP(*) [Neurontin 300 CAP(*)] 300 mg PO TID #90 cap 02/20/19 [Rx Confirmed 06/08/19] Acetaminophen TAB* [Tylenol TAB*] 975 mg PO Q8HR tab 04/17/19 [Rx Confirmed ] Docusate CAP* [Colace Cap*] 100 mg PO BID #0 cap 04/17/19 [Rx Confirmed 06/08/19 ] Ondansetron ODT TAB* [Zofran 4 MG Odt TAB*] 4 mg PO Q8H PRN #12 tab.odt [Rx] PMH/Surg Hx/FS Hx/Imm Hx Endocrine/Hematology History: Reports: Hx Diabetes, Hx Anemia Denies: Hx Bone Marrow Disease, Hx Sickle Cell Disease, Hx Thyroid Disease Cardiovascular History: Reports: Hx Hypertension, Hx Valvular Heart Disease - Aortic valve replacement 2016, Other Cardiovascular Problems/Disorders - endocarditis Denies: Hx Angina, Hx Cardiomegaly, Hx Congestive Heart Failure, Hx Coronary Artery Disease, Hx Pacemaker/ICD, Hx Peripheral Vascular Disease, Hx Rheumatic Fever Respiratory History: Denies: Hx Asthma, Hx Chronic Obstructive Pulmonary Disease (COPD), Hx Pulmonary Edema, Hx Pulmonary Embolism, Hx Sleep Apnea, Other Respiratory Problems/Disorders GI History: Reports: Hx Hiatal Hernia, Hx Obstructive Bowel, Other GI Disorders - Gall bladder removal, hernia repair Denies: Hx Cirrhosis, Hx Crohn's Disease, Hx Gastroesophageal Reflux Disease , Hx Irritable Bowel, Hx Jaundice, Hx Ulcer History: Reports: Other Problems/Disorders - bladder infections as a child Denies: Hx Dialysis, Hx Kidney Infection, Hx Kidney Stones, Hx Renal Disease Musculoskeletal History: Reports: Hx Back Problems Denies: Hx Arthritis, Hx Bursitis, Hx Osteoporosis, Hx Tendonitis, Other Musculoskeletal History Sensory History: Reports: Hx Contacts or Glasses Denies: Hx Cataracts, Hx Glaucoma, Hx Hearing Aid Opthamlomology History: Reports: Hx Contacts or Glasses Denies: Hx Cataracts, Hx Glaucoma Neurological History: Reports: Other Neuro Impairments/Disorders - occassional tingling to bottom of feet Denies: Hx Headaches, Hx Migraine, Hx Nerve Disease, Hx Seizures Psychiatric History: Reports: Hx Depression - on medication for Denies: Hx Anxiety, Hx Panic Disorder - Cancer History Hx Chemotherapy: No - Surgical History Surgery Procedure, Year, and Place: [place] [facility] [place] , [facility] [place]ator [place], [facility] [place] removal, [place], [facility] [place]. MAR 2014 HYSTERECTOMY. Jan 2017 Aortic Valve replacement/ amputation of right toe Hx Anesthesia Reactions: No Infectious Disease History: No Infectious Disease History: Denies: Hx Clostridium Difficile, Hx Hepatitis, Hx Human Immunodeficiency Virus (HIV), Hx of Known/Suspected MRSA, Hx Shingles, Hx Tuberculosis, Traveled Outside the [place] in Last 30 Days - Family History Known Family History: Positive: Unknown, Cardiac Disease, Hypertension, Diabetes - Social History Alcohol Use: None Hx Substance Use: No Substance Use Type: Reports: None Substance Use Comment - Amount & Last Used: 3 pepsi a day Hx Tobacco Use: No Smoking Status (MU): Former Smoker Type: Cigarettes Amount Used/How Often: 1 pack/day Length of Time of Smoking/Using Tobacco: SMOKED 30+ YEARS; Have You Smoked in the Last Year: Yes Review of Systems Negative: Fever, Chills Negative: Chest Pain Negative: Shortness Of Breath, Cough Positive: Abdominal Pain, Vomiting, Nausea. Negative: Diarrhea All Other Systems Reviewed And Are Negative: Yes Physical Exam - Summary Physical Exam Summary: Constitutional: Well-developed, Well-nourished, Alert. (-) Distressed Skin: Warm, Dry. Wound vac on left foot. HENT: Normocephalic; Atraumatic Eyes: Conjunctiva normal Neck: Musculoskeletal ROM normal neck. (-) JVD, (-) Stridor, (-) Tracheal deviation Cardio: Rhythm regular, rate normal, Heart sounds normal; Intact distal pulses; The pedal pulses are 2+ and symmetric. Radial pulses are 2+ and symmetric. (-) Murmur Pulmonary/Chest wall: Effort normal. (-) Respiratory distress, (-) Wheezes, (-) Rales Abd: Soft, (-) tenderness, (-) Distension, (-) Guarding, (-) Rebound Musculoskeletal: (-) Edema Lymph: (-) Cervical adenopathy Neuro: Alert, Oriented x3 Psych: Mood and affect Normal Triage Information Reviewed: Yes Vital Signs On Initial Exam: Initial Vitals Temp Pulse Resp BP Pulse Ox 96.6 F 77 18 149/54 95 06/08/19 18:58 06/08/19 18:58 06/08/19 18:58 06/08/19 18:58 06/08/19 18:58 Vital Signs Reviewed: Yes Procedures - Sedation Patient Received Moderate/Deep Sedation with Procedure: No Diagnostics - Vital Signs Vital Signs Temp Pulse Resp BP Pulse Ox 06/08/19 18:58 96.6 F 77 18 149/54 95 - Laboratory Result Diagrams: 06/08/19 19:20 06/08/19 19:20 Lab Statement: Any lab studies that have been ordered have been reviewed, and results considered in the medical decision making process. Re-Evaluation - Re-Evaluation First Eval Re-Evaluation Time: 20:04 Change: Improved Comment: Patient is feeling better. PO challenge will be given. Second Eval Re-Evaluation Time: 20:34 Change: Improved Comment: Patient is tolerating PO. GIGU Course/Dx - Course Course Of Treatment: Patient is here with abdominal pain and vomiting. Patient had left lower quadrant abdominal pain which stopped after she vomited. Patient had no tenderness on exam here. Patient had blood or performed showed mild cytosis and a mildly elevated CRP. Patient was given IV fluids and Zofran with improvement in her symptoms. Patient continued to have no tenderness on exam here. Patient was discharged with by mouth Zofran - Diagnoses Provider Diagnoses: Vomiting, Left lower quadrant abdominal pain - Critical Care Time Critical Care Statement: Critical care time is provided exclusive of any time spent performing procedures. Discharge ED - Sign-Out/Discharge Documenting (check all that apply): Patient Departure - Discharge home - Discharge Plan Condition: Stable Disposition: HOME Prescriptions: Ondansetron ODT TAB* [Zofran 4 MG Odt TAB*] 4 mg PO Q8H PRN #12 tab.odt PRN Reason: Nausea Patient Education Materials: Abdominal Pain (ED) Referrals: Matthew Murphy MD [Primary Care Provider] - Additional Instructions: Take medications given to you tonight at home if you feel nauseous. 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 Stay hydrated with Pedialyte. Please follow up with your primary care physician in 1-3 days. PLEASE RETURN TO EMERGENCY DEPARTMENT FOR WORSENING PAIN, UNABLE TO TOLERATE FOOD FOR 12 HOURS, OR ANY OTHER CONCERNING SYMPTOMS. - Billing Disposition and Condition Condition: STABLE Disposition: Home - Attestation Statements Document Initiated by Luann: Yes Documenting Scribe: Jadyn Best Provider For Whom Scribe is Documenting (Include Credential): Juanito Tavares MD Scribe Attestation: Jadyn Herzog, scribed for Juanito Tavares MD on 06/08/19 at 2048. Scribe Documentation Reviewed: Yes Provider Attestation: The documentation as recorded by the Jadyn vogt accurately reflects the service I personally performed and the decisions made by , Juanito Tavares MD Status of Scribe Document: Viewed
[2019-06-08] MEDS ORDERED: Ondansetron INJ* 2 MG/ML VIAL IV ONE (19:06)
[2019-06-08] MEDS ORDERED: NS 0.9% 1000 ML** 1,000 ML IV ONE (19:06)
[2019-06-08 19:33] LABS: ABS Basophils 0.1 10^3/ul (0-0.2); ABS Eosinophils 0.1 10^3/ul (0-0.6); ABS Lymphocytes 1.7 10^3/ul (1.0-4.8); ABS Monocytes 0.9 10^3/ul (0-0.8); ABS Neutrophils 9.1 10^3/ul (1.5-7.7); Eosinophil % 0.6 %; Hematocrit 39 % (35-47); Hemoglobin 12.4 g/dL (12.0-16.0); Lymphocyte % 14.7 %; Mean Corpuscular HGB Conc 32 g/dL (31-36); Mean Corpuscular Hemoglobin 26 pg (27-31); Mean Corpuscular Volume 79 fL (80-97); Mean Platelet Volume 8.1 fL (7.4-10.4); Nucleated Red Blood Cells % 0.1; Platelet Count 483 10^3/uL (150-450); Red Blood Count 4.88 10^6 /uL (3.70-4.87); Red Cell Distribution Width 15 % (10-15); White Blood Count 11.9 10^3/uL (3.5-10.8)
[2019-06-08 19:52] LABS: Albumin 3.6 g/dL (3.2-5.2); Albumin/Globulin Ratio 0.9 (1-3); BUN/Creatinine Ratio 24.7 (8-20); C Reactive Protein 9.66 mg/L (<8.01); Calcium 8.7 mg/dL (8.6-10.3); EGFR African American 45.3 (>60); EGFR Non-African American 37.5 (>60); Globulin 4.1 g/dL (2-4); Potassium 4.2 mmol/L (3.5-5.0); Total Bilirubin 0.6 mg/dL (0.2-1.0); Total Protein 7.7 g/dL (6.4-8.9)
--- OUTSIDE RECORDS SUMMARY | 2019-06-08 19:55 | XMS REPORT ---
:1965 Author Organization [facility] Care Team Providers Name Role Phone Unavailable Unavailable Unavailable Problems Condition Condition Condition Status Onset Resolution Last Treating Comments Name Details Category Date Date Treatment Clinician Date Unspecified Unspecified Diagnosis Active Della open wound, open wound, 04-17 Carrier RN left foot, left foot, subsequent subsequent encounter encounter Osteomyelit Osteomyelit Diagnosis Active Della is, is, 04-17 Carrier RN unspecified unspecified Encounter Encounter Diagnosis Active Della for change for change 04-17 Carrier RN or removal or removal of surgical of surgical wound wound dressing dressing 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, neuropathy, unspecified unspecified Peripheral Peripheral Diagnosis Active Della vascular vascular 04-17 Carrier RN disease, disease, unspecified unspecified Hyperlipide Hyperlipide Diagnosis Active Della michel, michel, 04-17 Carrier RN unspecified unspecified Unspecified Unspecified Diagnosis Active Della atrial atrial Carrier RN fibrillatio fibrillatio n n Essential Essential Diagnosis Active Della (primary) (primary) Carrier RN hypertensio hypertensio n n Gastro-esop Gastro-esop Diagnosis Active Della hageal hageal Carrier RN reflux reflux disease disease without without esophagitis esophagitis Personal Personal Diagnosis Active Della history of history of Carrier RN transient transient ischemic ischemic attack attack (TIA), and (TIA), and cerebral cerebral infarction infarction without without residual residual deficits deficits Sleep Sleep Diagnosis Active Della apnea, apnea, Carrier RN unspecified unspecified Pain knowledge/s Pain Mgmt Active Stefany kill 04-17 [place] deficit: pt 12:15: [id number] Respiratory dyspnea Respirator Active Stefany present y 04-17 [place] 12:15: [id number] 00 Endo/Vito anti-coagul Endo/Vito Active 2020-0 Stefany ation 3- [place] therapy 12:15: [id number] 00 Integument knowledge/s Integument Active 2020-0 Stefany kill 04-17 [place] deficit: pt 12:15: [id number] Nutrition nutritional Nutrition Active 2020-0 Stefany restriction 04-17 [place] s 12:15: [id number] 00 Safety risk for Safety Active 2020-0 Stefany hospitaliza 04-17 [place] tion 12:15: [id number] 00 Safety structural Safety Active 2020-0 Stefany barriers - [place] present 12:15: [id number] Safety safety Safety Active 2020-0 Stefany hazards - [place] present 12:15: [id number] 00 Safety sanitation Safety Active 2020-0 Stefany hazards 04-17 [place] present 12:15: [id number] 00 Safety fall risk Safety Active 2020-0 Stefany factor 04-17 [place] present 12:15: [id number] 00 Medication knowledge/s Meds Active 2020-0 Stefany kill 04-17 [place] deficit: pt 12:15: [id number] 00 Diagnoses knowledge/s Diagnoses Active 2020-0 Stefany kill 04-17 [place] deficit: cg 12:15: [id number] 00 Musculoskel transfer Musculoske Active 2020-0 Stefany etal assistance letal 04-17 [place] required 12:15: [id number] 00 Musculoskel requires Musculoske Active 2020-0 Stefany etal human letal 04-17 [place] assist to 12:15: [id number] leave home 00 Nutrition knowledge/s Nutrition Active 2020-0 Della kill 3-06 Carrier RN deficit: pt 16:55: 00 Nutrition knowledge/s Nutrition Active 2020-0 Della kill 3-06 Carrier RN deficit: cg 16:55: 00 Integument skin Integument Active 2020-0 Della integrity 3-11 Carrier RN risk 16:20: 00 Cardio edema Cardiovasc Active 2020-0 [place]rise ular 3- [place] 10:30: [id number] 00 Endo/Vito insulin Endo/Vito Active 2020-0 Cherrise admn 3- Surjit dependence 10:30: [id number] 00 Endo/Vito glucose Endo/Vito Active 2020-0 Cherrise testing 3-13 [place] dependence 10:30: [id number] 00 Elimination urinary Eliminatio Active Cherrise urgency n 04-26 [place] 10:30: [id number] 00 Elimination urinary Eliminatio Active Cherrise frequency n 04-26 [place] 10:30: [id number] 00 Neuro impaired Neuro/Emot Active Cherrise decision-ma ion 04-26 [place] brian 10:30: [id number] 00 Neuro memory Neuro/Emot Active [place] deficit ion 04-26 [place] needing 10:30: supervision 00 Safety can be left Safety Active Della alone for 05-05 Carrier RN only short 16:30: periods 00 Cardio hypertensio Cardiovasc Active Cherrise n ular 05-08 [place] 09:30: [id number] 00 Neuro depressive Neuro/Emot Active Cherrise feelings ion 05-13 [place] present 10:30: [id number] 00 Medication oral med Meds Active Della assistance 05-15 Carrier RN required 09:55: 00 Medication injectable Meds Active Della med 05-15 Carrier RN assistance 09:55: required 00 Medication knowledge/s Meds Active Della kill 05-15 Carrier RN deficit: cg 09:55: 00 Allergies, Adverse Reactions, Alerts Allergy Allergy Status Severity Reaction(s) Onset Inactive Treating Comments Name Type Date Date Clinician Uncoded Unknown Active Unknown Reaction 2019-03 Interface free-text - allergy Medications Ordered Filled Start Stop Current Ordering Indication Dosage Frequency Signature Comments Components Medication Medication Date Date Medication? Clinician (SIG) Name Name doxycycline doxycycline 2020- Yes Nic Unknown Unknown monohydrate monohydrate 04-17 03-10 Abel PANCHAL 100 mg 100 mg G capsule capsule FLUoxetine FLUoxetine Yes Nic Unknown Unknown 20 mg 20 mg 04-17 Abel PANCHAL capsule capsule G Xarelto 15 Xarelto 15 Yes Nic Unknown Unknown mg tablet mg tablet 04-17 Abel PANCHAL G metFORMIN metFORMIN Yes Nic Unknown Unknown ER 750 mg ER 750 mg 04-17 Abel PANCHAL tablet,exte tablet,exte G nded nded release 24 release 24 hr hr metoprolol metoprolol Yes Nic Unknown Unknown succinate succinate - Abel PANCHAL ER 25 mg ER 25 mg G tablet,exte tablet,exte nded nded release 24 release 24 hr hr Xultophy Xultophy Yes Nic Unknown Unknown 100/3.6 100/3.6 3- Abel PANCHAL 100 100 G unit-3.6 unit-3.6 mg/mL (3 mg/mL (3 mL) mL) subcutaneou subcutaneou s insulin s insulin pen pen cholecalcif cholecalcif Yes Nic Unknown Unknown yuridia yuridia - Abel PANCHAL (vitamin (vitamin G D3) 25 mcg D3) 25 mcg (1,000 (1,000 unit) unit) capsule capsule gabapentin gabapentin Yes Nic Unknown Unknown 300 mg 300 mg - Abel PANCHAL capsule capsule G Vital Signs Vital Name Observation Time Observation Value Comments SYSTOLIC mm[Hg] 2019-05-28 18:11:22 142 mm[Hg] mm[Hg] Method: Sit DIASTOLIC mm[Hg] 2019-05-28 18:11:22 77 mm[Hg] mm[Hg] Method: Sit PULSE 2019-05-28 18:11:22 73 /min /min RESP RATE 2019-05-28 18:11:22 16 /min /min TEMP 2019-05-28 18:11:22 98 [degF] Procedures This patient has no known procedures. Results This patient has no known results.
--- OUTSIDE RECORDS SUMMARY | 2019-06-08 19:55 | XMS REPORT | Continuity of Care Document ---
:1965 External Reference #:[id number] Author Name Abel Lucero M.D. (transmitted by agent of provider Nadia Maya) Address [address] [place] [address] Care Team Providers Name Role Phone Matthew Murphy MD - Internal Care Team Information Merchandise Shopper Medicine Abel Bojorquez MD - Vascular Care Team Information Merchandise Shopper Surgery Problems Active Problems Provider Date Type II diabetes mellitus uncontrolled Francisco Beyer M.D. Onset: 2014 Uterine leiomyoma Fracnisco Beyer M.D. Onset: 03/25/2014 Anemia due to chronic blood loss Francisco Beyer M.D. Onset: 03/25/2014 Acute posthemorrhagic anemia Francisco Beyer M.D. Onset: 03/25/2014 Obesity Francisco Beyer M.D. Onset: 03/25/2014 Morbid obesity Francisco Beyer M.D. Onset: 03/25/2014 Tobacco user Francisco Beyer M.D. Onset: 03/25/2014 Type 2 diabetes mellitus with ulcer Fredy Duarte M.D. Onset: 07/26/2016 Atherosclerosis of [place] arteries of left Naresh Quezada M.D. Onset: 05/01 leg with ulceration of other part of foot Social History Type Date Description Comments Sex Unknown Tobacco Use Start: Unknown Never Smoked Cigarettes Smoking Status Reviewed: 05/03/19 Never Smoked Cigarettes ETOH Use Denies alcohol use Recreational Drug Use Denies Drug Use Tobacco Use Start: Unknown End: Patient is a former smoked since age 15 Unknown smoker and quit in Nov 2016 Exercise Type/Frequency Does not exercise Allergies, Adverse Reactions, Alerts Description No Known Drug Allergies Medications Active Medications SIG Qnty Indications Ordering Date Provider Nystatin-Triamcinolon Apply bid to 15gm Leonides Johnson, 04/25/2019 e areas of 640979-8.1Unit/GM-% concerns as Cream needed for rash Doxycycline take one capsule 42caps E11.621 Abel Lucero, 04/24/2019 Monohydrate twice a day. M.D. 100mg Capsules Xultophy start 20 units 15ml E11.65 Cristhian [...] by mouth every Unknown 2000Unit day Capsules Gabapentin TK 1 C PO tid Unknown 300mg Capsules History Medications Doxycycline Hyclate 1 tab by mouth 14tabs M86.672 Leonides Johnson MD 2019 - twice a day 03/25/2019 100mg Tablets Vancomycin HCL 1500mg IV twice Unknown 02/13/2019 - 1gm daily home 02/27/2019 Solution Rec infusion Immunizations Description No Information Available Vital Signs Date Vital Result Comment 05/03/2019 10:46am Height 69 inches 5'9" Weight 373.00 lb Heart Rate 83 /min Respiratory Rate 18 /min Body Temperature 98.1 F Pain Level 0 BMI (Body Mass Index) 55.1 kg/m2 05/02/2019 7:33am Height 69 inches 5'9" Weight 373.00 lb Heart Rate 72 /min BP Systolic Sitting 124 mmHg ule reg cuff forearm BP Diastolic Sitting 76 mmHg ule reg cuff forearm BMI (Body Mass Index) 55.1 kg/m2 Dorsalis Pedis Pressure Right +2 doppler RtPT +1 doppler Results Test Acquired Date Facility Test Result H/L Range Note Laboratory test 04/09/2019 [facility] Point of 148 mg/dL High 70-[address] [place] [address] [phone] CBC Auto Diff 02/26/2019 [facility] White Blood 7.2 10^3/uL Normal 3.5-10.[address] [place] [address] [phone] Red Blood Count 3.97 10^6/uL Normal 3.70-4.87 Hemoglobin 10.6 g/dL Low 12.0-16.0 Hematocrit 33 % Low 35-47 Mean Corpuscular Volume 83 fL Normal 80-97 Mean Corpuscular Hemoglobin 27 pg Normal 27-31 Mean Corpuscular HGB Conc 32 g/dL Normal 31-36 Red Cell Distribution Width 15 % Normal 10-15 Platelet Count 308 10^3/uL Normal 150-450 Mean Platelet Volume 8.5 fL Normal 7.4-10.4 Abs Neutrophils 4.6 10^3/uL Normal 1.5-7.7 Abs Lymphocytes 1.6 10^3/uL Normal 1.0-4.8 Abs Monocytes 0.8 10^3/uL Normal 0-0.8 Abs Eosinophils 0.3 10^3/uL Normal 0-0.6 Abs Basophils 0.1 10^3/uL Normal 0-0.2 Abs Nucleated RBC 0.0 10^3/uL Granulocyte % 63.1 % Lymphocyte % 21.7 % Monocyte % 10.7 % Eosinophil % 3.7 % Basophil % 0.8 % Nucleated Red Blood Cells % 0.0 Comp Metabolic 02/26/2019 [facility] Sodium 142 mmol/L Normal 135-[address] [place] [address] [phone] Potassium 4.6 mmol/L Normal 3.5-5.0 Chloride 103 mmol/L Normal 101-111 Co2 Carbon Dioxide 32 mmol/L Normal 22-32 Anion Gap 7 mmol/L Normal 2-11 Glucose 156 mg/dL High 70-100 Blood Urea Nitrogen 23 mg/dL Normal 6-24 Creatinine 1.13 mg/dL High 0.51-0.95 BUN/Creatinine Ratio 20.4 High 8-20 Calcium 8.8 mg/dL Normal 8.6-10.3 Total Protein 6.1 g/dL Low 6.4-8.9 Albumin 3.0 g/dL Low 3.2-5.2 Globulin 3.1 g/dL Normal 2-4 Albumin/Globulin Ratio 1.0 Normal 1-3 Total Bilirubin 0.30 mg/dL Normal 0.2-1.0 Alkaline Phosphatase 82 U/L Normal 34-104 Alt 14 U/L Normal 7-52 Ast 11 U/L Low 13-39 Egfr Non- 50.4 >60 Egfr 60.9 >60 2 Laboratory test 02/26/2019 [facility] Vancomycin Trough 25.8 g /mL 3 finding [address] [place] [address] [phone] C Reactive Protein 5.45 mg/L Normal <8.01 1 [place] Driller: [id number] 2 Because ethnic data is not always readily available, this report includes an eGFR for both -Americans and non- Americans. The National Kidney Disease Education Program (NKDEP) does not endorse the use of the MDRD equation for patients that are not between the ages of 18 and 70, are , have extremes of body size, muscle mass, or nutritional status, or are non- or non-. According to the National Kidney Foundation, irrespective of diagnosis, the stage of the disease is based on the level of kidney function: Stage Description GFR(mL/min/1.73 m(2)) 1 Kidney damage with normal or decreased GFR 90 2 Kidney damage with mild decrease in GFR 60-89 3 Moderate decrease in GFR 30-59 4 Severe decrease in GFR 15-29 5 Kidney failure <15 (or dialysis) 3 15-20 for HCAP, VAP, Osteomyelitis, Endocarditis, Meningitis 10-15 for All Other Infections Procedures Date Code Description Status 04/09/2019 13021 Debridement Skin,& sq Tissue Completed 04/09/2019 06721 Debridement Skin,& sq Tissue Completed 02/12/2019 81494 EKG, Interpretation Only Completed 02/12/2019 43844 Amputation Metatarsal W/Toe Completed 02/12/2019 03346 Amputation Metatarsal W/Toe Completed 02/10/2019 11227 EKG, Interpretation Only Completed 01/22/2019 55241 EKG Tracing & Interpretation Completed 03/25/2014 [id number] Diabetic Retinal Eye Exam Completed 03/25/2014 [id number] Mammogram Completed Medical Devices Description No Information Available Encounters Type Date Location Provider Dx Diagnosis Office Visit 05/07/2019 [facility] Samaria Schulz L97.529 Non- pressure 2:30p Infectious Arleen SQUADRON WORKER chronic ulcer Diseases oth prt left foot w unsp severity I70.245 [facility] [place] [facility] of left leg w ulceration oth prt foot E11.40 Type 2 diabetes mellitus with diabetic neuropathy, unsp E11.621 Type 2 diabetes mellitus with foot ulcer Office Visit 05/02/2019 7:30a [facility] Naresh G. I70.245 [facility] [place] [facility] Isiah Quezada M.D. arteries of left leg w ulceration oth prt foot Z68.43 Body mass index (BMI) 50.0-59.9, adult E66.01 Morbid (severe) obesity due to excess calories [facility] 2 For Infectious Arleen S[employer] WORKER diabetes Diseases mellitus with foot ulcer L97.529 Non-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 E11.40 Type 2 diabetes mellitus with diabetic neuropathy, unsp Office [facility] Type 2 For Infectious Arleen S[employer] WORKER diabetes Diseases mellitus with foot ulcer L97.529 Non-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 E11.40 Type 2 diabetes mellitus with diabetic neuropathy, unsp Office Visit 04/13/2019 [facility] Mounika L97.529 Non-pressure 10:23a Assoc,cedric Tafoya, M.D. chronic ulcer oth Hospitalists prt left foot w unsp severity E11.621 Type 2 diabetes mellitus with foot ulcer I10 Essential (primary) hypertension I48.0 Paroxysmal atrial fibrillation Office Visit 04/12/2019 [facility] L97.529 Non-pressure 10:23a cedric Chamberlain M.D. chronic ulcer oth Hospitalists prt left foot w unsp severity E11.621 Type 2 diabetes mellitus with foot ulcer I10 Essential (primary) hypertension E66.01 Morbid (severe) obesity due to excess calories I48.0 Paroxysmal atrial fibrillation Z68.43 Body mass index (BMI) 50.0-59.9, adult Office Visit 04/11/2019 [facility] T81.31xD Disruption of 12:26p For Infectious Bacon, SQUADRON WORKER external Diseases operation (surgical) wound, NEC, subs E11.621 Type 2 diabetes mellitus with foot ulcer L97.529 Non-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 E11.40 Type 2 diabetes mellitus with diabetic neuropathy, unsp Office Visit 04/11/2019 [facility] L97.529 Non-pressure 10:23a cedric Chamberlain M.D. chronic ulcer oth Hospitalists prt left foot w unsp severity E11.621 Type 2 diabetes mellitus with foot ulcer I10 Essential (primary) hypertension E66.01 Morbid (severe) obesity due to excess calories I48.0 Paroxysmal atrial fibrillation Z68.43 Body mass index (BMI) 50.0-59.9, adult Office Visit 04/10/2019 2:45p [facility] Naresh GChace E11.621 Type 2 diabetes Medicine Of Isiah Quezada M.D. mellitus with foot ulcer L97.529 Non-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 [facility] E11.621 Type 2 cedric Chamberlain M.D. 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 [facility] ENV[employer] FORESTER-Cde exam (general) (routine) w/o abn findings Z12.31 Encntr screen mammogram for malignant neoplasm of breast Office Visit 03/26/2019 [facility] Cesar Dickson L97.529 Non-pressure 1:40p For Infectious Apoorva Mabry chronic ulcer oth Diseases prt left foot w unsp severity E11.621 Type 2 diabetes mellitus with foot ulcer Office Visit 02/26/2019 [facility] Cesar Dickson M86.672 Other chronic 4:20p For Infectious Apoorva Mabry osteomyelitis, left Diseases ankle and foot E11.69 Type 2 diabetes mellitus with other specified complication Office Visit 02/20/2019 [facility] M86.9 Osteomyelitis, 8:50a Assoccedric MD unspecified Hospitalists I38 Endocarditis, valve unspecified E11.40 Type 2 diabetes mellitus with diabetic neuropathy, unsp I48.0 Paroxysmal atrial fibrillation I10 Essential (primary) hypertension G47.33 Obstructive sleep apnea (adult) (pediatric) Office Visit 02/20/2019 [facility] Samaria Schulz E11.69 Type 2 diabetes 10:36a For Infectious Arleen S[employer]AD[employer] WORKER mellitus with Diseases other specified complication M86.672 Other chronic osteomyelitis, left ankle and foot Z89.422 Acquired absence of other left toe(s) Office 02/19/2019 [facility] M86.672 Other chronic Visit 8:49a cedric Chamberlain MD osteomyelitis, left Hospitalists ankle and foot E11.621 Type 2 diabetes mellitus with foot ulcer E11.40 Type 2 diabetes mellitus with diabetic neuropathy, unsp F41.9 Anxiety disorder, unspecified F32.9 Major depressive disorder, single episode, unspecified I48.0 Paroxysmal atrial fibrillation Office Visit 02/19/2019 [facility] E11.69 Type 2 diabetes 10:35a For Infectious Bacon, SQUADRON WORKER mellitus with Diseases other specified complication M86.672 Other chronic osteomyelitis, left ankle and foot Z89.422 Acquired absence of other left toe(s) Office 02/18/2019 [facility] M86.672 Other chronic Visit 8:49a Asscedric corona PA osteomyelitis, Hospitalists left ankle and foot E11.621 Type 2 diabetes mellitus with foot ulcer E11.40 Type 2 diabetes mellitus with diabetic neuropathy, unsp I48.0 Paroxysmal atrial fibrillation F41.9 Anxiety disorder, unspecified F32.9 Major depressive disorder, single episode, unspecified Office 02/17/2019 [facility] M86.672 Other chronic Visit 8:48a cedric Chamberlain PA osteomyelitis, Hospitalists left ankle and foot E11.621 Type 2 diabetes mellitus with foot ulcer E11.40 Type 2 diabetes mellitus with diabetic neuropathy, unsp I48.0 Paroxysmal atrial fibrillation F41.9 Anxiety disorder, unspecified F32.9 Major depressive disorder, single episode, unspecified Office 02/16/2019 [facility] M86.672 Other chronic Visit 8:48a cedric Chamberlain PA osteomyelitis, Hospitalists left ankle and foot E11.621 Type 2 diabetes mellitus with foot ulcer E11.40 Type 2 diabetes mellitus with diabetic neuropathy, unsp I48.0 Paroxysmal atrial fibrillation F41.9 Anxiety disorder, unspecified F32.9 Major depressive disorder, single episode, unspecified Office Visit 02/16/2019 [facility] E11.69 Type 2 diabetes 10:33a For Infectious Bacon, S[employer]ADRON WORKER mellitus with Diseases other specified complication M86.672 Other chronic osteomyelitis, left ankle and foot E11.621 Type 2 diabetes mellitus with foot ulcer L97.529 Non-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 Z89.422 Acquired absence of other left toe(s) Office 02/15/2019 [facility] M86.672 Other chronic Visit 8:46a Assecdric corona PA osteomyelitis, Hospitalists left ankle and foot E11.621 Type 2 diabetes mellitus with foot ulcer E11.40 Type 2 diabetes mellitus with diabetic neuropathy, unsp I48.91 Unspecified atrial fibrillation F41.9 Anxiety disorder, unspecified F32.9 Major depressive disorder, single episode, unspecified Office 02/14/2019 [facility] Dee Dee M86.672 Other chronic Visit 8:42a cedric Chamberlain PA osteomyelitis, Hospitalists left ankle and foot E11.621 Type 2 diabetes mellitus with foot ulcer E11.40 Type 2 diabetes mellitus with diabetic neuropathy, unsp I48.91 Unspecified atrial fibrillation F41.9 Anxiety disorder, unspecified F32.9 Major depressive disorder, single episode, unspecified Office Visit 02/13/2019 [facility] M86.672 Other chronic 8:42a cedric Chamberlain PA osteomyelitis, left Hospitalists ankle and foot E11.621 Type 2 diabetes mellitus with foot ulcer F41.9 Anxiety disorder, unspecified F32.9 Major depressive disorder, single episode, unspecified I48.91 Unspecified atrial fibrillation G47.33 Obstructive sleep apnea (adult) (pediatric) Office Visit 02/12/2019 [facility] M86.672 Other chronic 8:41a cedric Chamberlain PA osteomyelitis, left Hospitalists ankle and foot E11.621 Type 2 diabetes mellitus with foot ulcer F41.9 Anxiety disorder, unspecified F32.9 Major depressive disorder, single episode, unspecified I48.91 Unspecified atrial fibrillation G47.33 Obstructive sleep apnea (adult) (pediatric) Office Visit 02/12/2019 [facility] E11.69 Type 2 diabetes 10:31a For Infectious Bacon, SQUADRON WORKER mellitus with Diseases other specified complication M86.672 Other chronic osteomyelitis, left ankle and foot E11.621 Type 2 diabetes mellitus with foot ulcer L97.529 Non-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 Office Visit 02/11/2019 [facility] M86.672 Other chronic 8:41a cedric Chamberlain PA osteomyelitis, left Hospitalists ankle and foot E11.621 Type 2 diabetes mellitus with foot ulcer F41.9 Anxiety disorder, unspecified F32.9 Major depressive disorder, single episode, unspecified I48.91 Unspecified atrial fibrillation Office Visit 02/10/2019 [facility] M86.672 Other chronic 8:40a cerdic Chamberlain PA osteomyelitis, left Hospitalists ankle and foot E11.621 Type 2 diabetes mellitus with foot ulcer N18.9 Chronic kidney disease, unspecified I48.0 Paroxysmal atrial fibrillation I10 Essential (primary) hypertension G47.33 Obstructive sleep apnea (adult) (pediatric) Office Visit 02/10/2019 [facility] E11.40 Type 2 diabetes 12:33p [facility] [place] mellitus with [place] diabetic neuropathy, unsp M86.172 Other acute osteomyelitis, left ankle and foot Office Visit 01/22/2019 2:20p [facility] Chris Santos I48.0 Paroxysmal atrial Of Pension Adviser Morin, DO fibrillation FAC I63.9 Cerebral infarction, unspecified Z95.2 Presence of prosthetic heart valve E78.5 Hyperlipidemia, unspecified E11.8 Type 2 diabetes mellitus with unspecified complications Assessments Date Code Description Provider 05/07/2019 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 severity 05/07/2019 I70.245 Atherosclerosis of [place] arteries Samaria Bacon NP of left leg with ulceration of other part of foot 05/07/2019 E11.40 Type 2 diabetes mellitus with Samaria Bacon NP diabetic neuropathy, unspecified 05/07/2019 E11.621 Type 2 diabetes mellitus with foot Samaria Bacon NP ulcer 05/03/2019 L97.529 Non-pressure chronic ulcer of other Abel Lucero M.D. part of left foot with unspecified severity 05/02/2019 I70.245 Atherosclerosis of [place] arteries Naresh Quezada M.D. of left leg with ulceration of other part of foot 05/02/2019 Z68.43 Body mass index (BMI) 50.0-59.9, Naresh Quezada M.D. adult 05/02/2019 E66.01 Morbid (severe) obesity due to Naresh Quezada M.D. excess calories 04/24/2019 E11.621 Type 2 diabetes mellitus with foot Abel Lucero M.D. ulcer 04/16/2019 E11.621 Type 2 diabetes mellitus with foot Samaria Bacon NP ulcer 04/16/2019 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 severity 04/16/2019 E11.40 Type 2 diabetes mellitus with Samaria Bacon NP diabetic neuropathy, unspecified 04/13/2019 E11.621 Type 2 diabetes mellitus with foot Samaria Bacon NP ulcer 04/13/2019 L97.529 Non-pressure chronic ulcer of yamilet Tafoya M.D. part of left foot with unspecified severity 04/13/2019 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 severity 04/13/2019 E11.621 Type 2 diabetes mellitus with foot Mounika Tafoya M.D. ulcer 04/13/2019 E11.40 Type 2 diabetes mellitus with Samaria Bacon NP diabetic neuropathy, unspecified 04/13/2019 I10 Essential (primary) hypertension Mounika Tafoya M.D. 04/13/2019 I48.0 Paroxysmal atrial fibrillation Mounika Tafoya M.D. 04/12/2019 L97.529 Non-pressure chronic ulcer of other Mounika Tafoya M.D. part of left foot with unspecified severity 04/12/2019 E11.621 Type 2 diabetes mellitus with foot Mounika Tafoya M.D. ulcer 04/12/2019 I10 Essential (primary) hypertension Mounika Tafoya M.D. 04/12/2019 E66.01 Morbid (severe) obesity due to Mounika Tafoya M.D. excess calories 04/12/2019 I48.0 Paroxysmal atrial fibrillation Mounika Tafoya M.D. 04/12/2019 Z68.43 Body mass index (BMI) 50.0-59.9, Mounika Tafoya M.D. adult 04/11/2019 T81.31xD Disruption of external operation Samaria Bacon NP (surgical) wound, not elsewhere classified, subsequent encounter 04/11/2019 L97.529 Non-pressure chronic ulcer of yamilet Tafoya M.D. part of left foot with unspecified severity 04/11/2019 E11.621 Type 2 diabetes mellitus with foot Samaria Bacon NP ulcer 04/11/2019 E11.621 Type 2 diabetes mellitus with foot Mounika Tafoya M.D. ulcer 04/11/2019 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 severity 04/11/2019 I10 Essential (primary) hypertension Mounika Tafoya M.D. 04/11/2019 E11.40 Type 2 diabetes mellitus with Samaria Bacon NP diabetic neuropathy, unspecified 04/11/2019 E66.01 Morbid (severe) obesity due to Mounika Tafoya M.D. excess calories 04/11/2019 I48.0 Paroxysmal atrial fibrillation Mounika Tafoya M.D. 04/11/2019 Z68.43 Body mass index (BMI) 50.0-59.9, Mounika Tafoya M.D. adult 04/10/2019 T81.31xD Disruption of external operation Samaria Bacon NP (surgical) wound, not elsewhere classified, subsequent encounter 04/10/2019 E11.621 Type 2 diabetes mellitus with foot Mounika Tafoya M.D. ulcer 04/10/2019 E11.621 Type 2 diabetes mellitus with foot Samaria Bacon NP ulcer 04/10/2019 E11.621 Type 2 diabetes mellitus with foot Naresh Quezada M.D. ulcer 04/10/2019 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 severity 04/10/2019 L97.529 Non-pressure chronic ulcer of other Mounika Tafoya M.D. part of left foot with unspecified severity 04/10/2019 E11.40 Type 2 diabetes mellitus with Samaria Bacon NP diabetic neuropathy, unspecified 04/10/2019 L97.529 Non-pressure chronic ulcer of other Naresh Quezada M.D. part of left foot with unspecified severity 04/10/2019 I48.91 Unspecified atrial fibrillation Mounika Tafoya M.D. 04/09/2019 M86.672 Other chronic osteomyelitis, left Abhilash De La Torre , RPA-C ankle and foot 04/09/2019 M86.672 Other chronic osteomyelitis, left Abel Lucero M.D. ankle and foot 04/09/2019 T81.31xD Disruption of external operation OSMAR Lopez (surgical) wound, not elsewhere classified, subsequent encounter 04/09/2019 T81.31xD Disruption of external operation Abel Lucero M.D. (surgical) wound, not elsewhere classified, subsequent encounter 04/05/2019 Z01.419 Encounter for gynecological Shona Wei EN[employer]ON[employer] FORESTER-Cde examination (general) (routine) without abnormal findings 04/05/2019 L97.529 Non-pressure chronic ulcer of other Abel Lucero M.D. part of left foot with unspecified severity 04/05/2019 Z12.31 Encounter for screening mammogram [facility] for malignant neoplasm of breast 04/05/2019 E11.621 Type 2 diabetes mellitus with foot Abel Lucero M.D. ulcer 03/26/2019 L97.529 Non-pressure chronic ulcer of other Cesar Mabry M.D. part of left foot with unspecified severity 03/26/2019 E11.621 Type 2 diabetes mellitus with foot Cesar Mabry M.D. ulcer 03/22/2019 M86.672 Other chronic osteomyelitis, left Abel Lucero M.D. ankle and foot 03/22/2019 M76.822 Posterior tibial tendinitis, left Abel Lucero M.D. leg 03/22/2019 E11.69 Type 2 diabetes mellitus with other Abel Lucero M.D. specified complication 03/22/2019 Z47.81 Encounter for orthopedic aftercare Abel Lucero M.D. following surgical amputation 03/22/2019 Z89.422 Acquired absence of other left Abel Lucero M.D. toe(s) 03/06/2019 M76.822 Posterior tibial tendinitis, left Abel Lucero M.D. leg 03/06/2019 M86.672 Other chronic osteomyelitis, left Abel Lucero M.D. ankle and foot 03/06/2019 E11.69 Type 2 diabetes mellitus with yamilet Lucero M.D. specified complication 02/27/2019 M86.672 Other chronic osteomyelitis, left Abel Lucero M.D. ankle and foot 02/26/2019 M86.672 Other chronic osteomyelitis, left Cesar Mabry M.D. ankle and foot 02/26/2019 E11.69 Type 2 diabetes mellitus with other Cesar Mabry M.D. specified complication 02/20/2019 M86.9 Osteomyelitis, unspecified Mary Alcala MD 02/20/2019 E11.69 Type 2 diabetes mellitus with other Samaria Bacon NP specified complication 02/20/2019 I38 Endocarditis, valve unspecified Mary Alcala MD 02/20/2019 M86.672 Other chronic osteomyelitis, left Samaria Bacon NP ankle and foot 02/20/2019 E11.40 Type 2 diabetes mellitus with Mary Alcala MD diabetic neuropathy, unspecified 02/20/2019 Z89.422 Acquired absence of other left Samaria Bacon NP toe(s) 02/20/2019 I48.0 Paroxysmal atrial fibrillation Mary Alcala MD 02/20/2019 I10 Essential (primary) hypertension Mary Alcala MD 02/20/2019 G47.33 Obstructive sleep apnea (adult) Mary Alcala MD (pediatric) 02/19/2019 M86.672 Other chronic osteomyelitis, left Mary Alcala MD ankle and foot 02/19/2019 E11.69 Type 2 diabetes mellitus with other Samaria Bacon NP specified complication 02/19/2019 E11.621 Type 2 diabetes mellitus with foot Mary Alcala MD ulcer 02/19/2019 M86.672 Other chronic osteomyelitis, left Samaria Bacon NP ankle and foot 02/19/2019 E11.40 Type 2 diabetes mellitus with Mary Alcala MD diabetic neuropathy, unspecified 02/19/2019 Z89.422 Acquired absence of other left Samaria Bacon NP toe(s) 02/19/2019 F41.9 Anxiety disorder, unspecified Mary Alcala MD 02/19/2019 F32.9 Major depressive disorder, single Mary Alcala MD episode, unspecified 02/19/2019 I48.0 Paroxysmal atrial fibrillation Mary Alcala MD 02/18/2019 M86.672 Other chronic osteomyelitis, left Dee Dee Ordonez, PA ankle and foot 02/18/2019 E11.621 Type 2 diabetes mellitus with foot Dee Dee Ordonez, PA ulcer 02/18/2019 E11.40 Type 2 diabetes mellitus with Dee Dee Ordonez, PA diabetic neuropathy, unspecified 02/18/2019 I48.0 Paroxysmal atrial fibrillation Dee Dee Ordonez, PA 02/18/2019 F41.9 Anxiety disorder, unspecified Dee Dee Ordonez, PA 02/18/2019 F32.9 Major depressive disorder, single Dee Dee Ordonez, PA episode, unspecified 02/17/2019 M86.672 Other chronic osteomyelitis, left Dee Dee Ordonez, PA ankle and foot 02/17/2019 E11.621 Type 2 diabetes mellitus with foot Dee Dee Ordonez, PA ulcer 02/17/2019 E11.40 Type 2 diabetes mellitus with Dee Dee Ordonez, PA diabetic neuropathy, unspecified 02/17/2019 I48.0 Paroxysmal atrial fibrillation Dee Dee Ordonez, PA 02/17/2019 F41.9 Anxiety disorder, unspecified Dee Dee Ordonez, PA 02/17/2019 F32.9 Major depressive disorder, single Dee Dee Ordonez, PA episode, unspecified 02/16/2019 M86.672 Other chronic osteomyelitis, left Dee Dee Ordonez, PA ankle and foot 02/16/2019 E11.69 Type 2 diabetes mellitus with other Samaria Bacon NP specified complication 02/16/2019 E11.621 Type 2 diabetes mellitus with foot Dee Dee Ordonez, PA ulcer 02/16/2019 M86.672 Other chronic osteomyelitis, left Samaria Bacon NP ankle and foot 02/16/2019 E11.40 Type 2 diabetes mellitus with Dee Dee Ordonez, PA diabetic neuropathy, unspecified 02/16/2019 E11.621 Type 2 diabetes mellitus with foot Samaria Bacon NP ulcer 02/16/2019 I48.0 Paroxysmal atrial fibrillation Dee Dee Ordonez, PA 02/16/2019 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 severity 02/16/2019 F41.9 Anxiety disorder, unspecified Dee Dee Ordonez, PA 02/16/2019 Z89.422 Acquired absence of other left Samaria Bacon NP toe(s) 02/16/2019 F32.9 Major depressive disorder, single Dee Dee Ordonez, PA episode, unspecified 02/15/2019 M86.672 Other chronic osteomyelitis, left Dee Deefreedom Martínezham, PA ankle and foot 02/15/2019 E11.621 Type 2 diabetes mellitus with foot Dee Dee Ordonez, PA ulcer 02/15/2019 E11.40 Type 2 diabetes mellitus with Dee Dee Ordonez, PA diabetic neuropathy, unspecified 02/15/2019 I48.91 Unspecified atrial fibrillation Dee Dee Ordonez, PA 02/15/2019 F41.9 Anxiety disorder, unspecified Dee Dee Ordonez, PA 02/15/2019 F32.9 Major depressive disorder, single Dee Dee Ordonez, PA episode, unspecified 02/14/2019 M86.672 Other chronic osteomyelitis, left Dee Deefreedom [place], PA ankle and foot 02/14/2019 E11.621 Type 2 diabetes mellitus with foot Dee Dee Ordonez, PA ulcer 02/14/2019 E11.40 Type 2 diabetes mellitus with Dee Dee Ordonez, PA diabetic neuropathy, unspecified 02/14/2019 I48.91 Unspecified atrial fibrillation Dee Dee Ordonez, PA 02/14/2019 F41.9 Anxiety disorder, unspecified Dee Dee Ordonez, PA 02/14/2019 F32.9 Major depressive disorder, single Dee Dee Ordonez, PA episode, unspecified 02/13/2019 M86.672 Other chronic osteomyelitis, left DAT Justice ankle and foot 02/13/2019 E11.621 Type 2 diabetes mellitus with foot Alex Diamond, PA ulcer 02/13/2019 F41.9 Anxiety disorder, unspecified Alex Diamond PA 02/13/2019 F32.9 Major depressive disorder, single Alex Diamond PA episode, unspecified 02/13/2019 I48.91 Unspecified atrial fibrillation Alex Diamond PA 02/13/2019 G47.33 Obstructive sleep apnea (adult) DAT Justice (pediatric) 02/12/2019 M86.672 Other chronic osteomyelitis, left DAT Justice ankle and foot 02/12/2019 E11.69 Type 2 diabetes mellitus with other Samariacarolina Caldwelladelakita Bacon NP specified complication 02/12/2019 E11.621 Type 2 diabetes mellitus with foot DAT Justice ulcer 02/12/2019 M86.172 Other acute osteomyelitis, left Chris Morin, DO FACC ankle and foot 02/12/2019 F41.9 Anxiety disorder, unspecified DAT Justice 02/12/2019 M86.672 Other chronic osteomyelitis, left Samariacarolina Bacon [employer] ankle and foot 02/12/2019 F32.9 Major depressive disorder, single DAT Justice episode, unspecified 02/12/2019 M86.172 Other acute osteomyelitis, left Abhilash De La Torre, MYRON-C ankle and foot 02/12/2019 I48.91 Unspecified atrial fibrillation DAT Justice 02/12/2019 E11.621 Type 2 diabetes mellitus with foot Samaria Zeus Bacon NP ulcer 02/12/2019 G47.33 Obstructive sleep apnea (adult) DAT Justice (pediatric) 02/12/2019 M86.172 Other acute osteomyelitis, left Abel Lucero M.D. 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 diabetic neuropathy, unspecified 02/10/2019 M86.672 Other chronic osteomyelitis, left DAT Justice ankle and foot 02/10/2019 M86.172 Other acute osteomyelitis, left Della Mills M.D. ankle and foot 02/10/2019 R94.31 Abnormal electrocardiogram [ECG] Chris Morin, DO FACC [EKG] 02/10/2019 E11.621 Type 2 diabetes mellitus with foot DAT Justice ulcer 02/10/2019 N18.9 Chronic kidney disease, unspecified DAT Justice 02/10/2019 I48.0 Paroxysmal atrial fibrillation DAT Justice 02/10/2019 I10 Essential (primary) hypertension DAT Justice 02/10/2019 G47.33 Obstructive sleep apnea (adult) DAT Justice (pediatric) 01/22/2019 I48.0 Paroxysmal atrial fibrillation Chris Morin, DO FAC 01/22/2019 I63.9 Cerebral infarction, unspecified Chris Morin, DO FACC 01/22/2019 Z95.2 Presence of prosthetic heart valve Chris Morin DO FACC 01/22/2019 E78.5 Hyperlipidemia, unspecified Chris Morin, DO FACC 01/22/2019 E11.8 Type 2 diabetes mellitus with Chris Morin, DO FAC unspecified complications Plan of Treatment Future Appointment(s):06/21/2019 10:00 am - Samaria Bacon NP at [facility] Qxbncwsv88/02/2020 11:15 am - Abel Lucero M.D. 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 please eval [address] [place] [address] [place] [address] [phone] Lexii Forrester MD Referral to the [facility] Sent Living to explore weight loss options [address] [place] [address] [phone] Naresh Quezada MD Left foot non healing wound, eval blood flow Closed and need for further intervention [address] [place] [address] [phone]
--- OUTSIDE RECORDS SUMMARY | 2019-06-08 19:55 | XMS REPORT ---
:1965 Author Organization [facility] Care Team Providers Name Role Phone Unavailable [...] Stefany kill 04-17 [place] deficit: pt 12:15: [id number] Respiratory dyspnea Respirator Active Stefany present y 04-17 [place] 12:15: [id number] 00 Endo/Vito anti-coagul Endo/Vito Active 2020-0 Stefany ation 3- [place] therapy 12:15: [id number] 00 Integument knowledge/s Integument Active 2020-0 Stefany kill 04-17 [place] deficit: pt 12:15: [id number] 00 Nutrition nutritional Nutrition Active 2020-0 Stefany restriction 04-17 [place] s 12:15: [id number] 00 Safety risk for Safety Active 2020-0 Stefany hospitaliza 04-17 [place] tion 12:15: [id number] 00 Safety structural Safety Active 2020-0 Stefany barriers - [place] present 12:15: [id number] 00 Safety safety Safety Active 2020-0 Stefany hazards - [place] present 12:15: [id number] 00 Safety sanitation Safety Active 2020-0 Stefany hazards 04-17 [place] present 12:15: [id number] 00 Safety fall risk Safety Active 2020-0 Stefany factor 04-17 [place] present 12:15: [id number] 00 Medication knowledge/s Meds Active 2020-0 Stefany kill 04-17 [place] deficit: pt 12:15: [id number] 00 Diagnoses knowledge/s Diagnoses Active 2020-0 Stefany kill 04-17 [place] deficit: cg 12:15: [id number] 00 Musculoskel transfer Musculoske Active 2020-0 Stefany etal assistance letal 04-17 [place] required 12:15: [id number] 00 Musculoskel requires Musculoske Active 2020-0 Stefany etal human letal 04-17 [place] assist to 12:15: [id number] leave home 00 Nutrition knowledge/s Nutrition Active 2020-0 Della kill 3-06 Carrier RN deficit: pt 16:55: 00 Nutrition knowledge/s Nutrition Active 2020-0 Della kill 3-06 [place] RN deficit: cg 16:55: 00 Integument skin Integument Active 2020-0 Della integrity 3-11 Carrier RN risk 16:20: 00 Cardio edema Cardiovasc Active 2020-0 Cherrise ular 3- [place] 10:30: [id number] 00 Endo/Vito insulin Endo/Vito Active 2020-0 Cherrise admn 3- [place] dependence 10:30: [id number] 00 Endo/Vito glucose Endo/Vito Active 2020-0 Cherrise testing 3-13 [place] dependence 10:30: [id number] 00 Elimination urinary Eliminatio Active Cherrise urgency n 04-26 [place] 10:30: [id number] 00 Elimination urinary Eliminatio Active Cherrise frequency n 04-26 [place] 10:30: [id number] 00 Neuro impaired Neuro/Emot Active Cherrise decision-ma ion 04-26 [place] brian 10:30: [id number] 00 Neuro memory Neuro/Emot Active Cherrise deficit ion 04-26 [place] needing 10:30: [id number] supervision 00 Safety can be left Safety Active Della alone for 05-05 Carrier RN only short 16:30: periods 00 Cardio hypertensio Cardiovasc Active Cherrise n ular 05-08 [place] 09:30: [id number] 00 Neuro depressive Neuro/Emot Active Cherrise feelings ion 05-13 [place] present 10:30: [id number] 00 Allergies, Adverse Reactions, Alerts Allergy Allergy Status Severity Reaction(s) Onset Inactive Treating Comments Name Type Date Date Clinician Uncoded Unknown Active Unknown Reaction 2019-03 Interface free-text Unknown - allergy Medications Ordered Filled Start Stop Current Ordering Indication Dosage Frequency Signature Comments Components Medication Medication Date Date Medication? Clinician (SIG) Name Name doxycycline doxycycline 2020- Yes Nic Unknown Unknown monohydrate monohydrate 04-17 03-10 Abel PANCHAL 100 mg 100 mg G capsule capsule FLUoxetine FLUoxetine Yes Nic Unknown Unknown 20 mg 20 mg - Abel PANCHAL capsule capsule G Xarelto 15 Xarelto 15 Yes Nic Unknown Unknown mg tablet mg tablet - Aebl PANCHAL metFORMIN metFORMIN Yes Nic Unknown Unknown ER 750 mg ER 750 mg 3- Abel PANCHAL tablet,exte tablet,exte G nded nded release 24 release 24 hr hr metoprolol metoprolol Yes Nic Unknown Unknown succinate succinate 3- Abel PANCHAL ER 25 mg ER 25 [...] Observation Time Observation Value Comments SYSTOLIC mm[Hg] 2019-05-16 18:11:10 122 mm[Hg] mm[Hg] Method: Sit DIASTOLIC mm[Hg] 2019-05-16 18:11:10 76 mm[Hg] mm[Hg] Method: Sit PULSE 2019-05-16 18:11:10 72 /min /min RESP RATE 2019-05-16 18:11:10 16 /min /min TEMP 2019-05-16 18:11:10 97.3 [degF] Procedures This patient has no known procedures. Results This patient has no known results.
--- OUTSIDE RECORDS SUMMARY | 2019-06-08 19:55 | XMS REPORT ---
:1965 Author Organization [facility] Care Team Providers Name Role Phone Unavailable [...] Stefany kill 04-17 [place] deficit: pt 12:15: [id number] 00 Respiratory dyspnea Respirator Active Stefany present y 04-17 [place] 12:15: [id number] 00 Endo/Vito anti-coagul Endo/Vito Active 2020-0 Stefany ation 3- [place] therapy 12:15: [id number] 00 Integument knowledge/s Integument Active 2020-0 Stefany kill 04-17 [place] deficit: pt 12:15: [id number] 00 Nutrition nutritional Nutrition Active 2020-0 Stefany restriction 04-17 [place] s 12:15: [id number] 00 Safety risk for Safety Active 2020-0 Stefany hospitaliza 04-17 [place] tion 12:15: [id number] 00 Safety structural Safety Active 2020-0 Stefany barriers - [place] present 12:15: [id number] 00 Safety safety Safety Active 2020-0 Stefany hazards - [place] present 12:15: [id number] 00 Safety sanitation Safety Active 2020-0 Stefany hazards 04-17 [place] present 12:15: [id number] 00 Safety fall risk Safety Active 2020-0 Stefany factor 04-17 [place] present 12:15: [id number] 00 Medication knowledge/s Meds Active 2020-0 Stefany kill 04-17 [place] deficit: pt 12:15: [id number] 00 Diagnoses knowledge/s Diagnoses Active 2020-0 Stefany kill 04-17 [place] deficit: cg 12:15: [id number] 00 Musculoskel transfer Musculoske Active 2020-0 Stefany etal assistance letal 04-17 [place] required 12:15: [id number] 00 Musculoskel requires Musculoske Active 2020-0 Stefany etal human letal 04-17 [place] assist to 12:15: [id number] leave home 00 Nutrition knowledge/s Nutrition Active 2020-0 Della kill 3-06 Carrier RN deficit: pt 16:55: 00 Nutrition knowledge/s Nutrition Active 2020-0 Della kill 3-06 Carrier RN deficit: cg 16:55: 00 Integument skin Integument Active 2020-0 Della integrity 3-11 Carrier RN risk 16:20: 00 Cardio edema Cardiovasc Active 2020-0 Cherrise ular 3- [place] 10:30: [id number] 00 Endo/Vito insulin Endo/Vito Active 2020-0 Cherrise admn 3- [place] dependence 10:30: [id number] 00 Endo/Vito glucose Endo/Vito Active 2020-0 Cherrise testing 3-13 [place] dependence 10:30: [id number] 00 Elimination urinary Eliminatio Active Cherrise urgency n 04-26 [place] 10:30: [id number] 00 Elimination urinary Eliminatio Active Cherrise frequency n 04-26 [place] 10:30: [id number] 00 Neuro impaired Neuro/Emot Active Cherrise decision-ma ion 04-26 [place] brian 10:30: [id number] 00 Neuro memory Neuro/Emot Active Cherrise deficit ion 04-26 [place] needing 10:30: [id number] supervision 00 Safety can be left Safety Active Della alone for 05-05 Carrier RN only short 16:30: periods 00 Cardio hypertensio Cardiovasc Active Cherrise n ular 05-08 [place] 09:30: [id number] 00 Neuro depressive Neuro/Emot Active Cherrise feelings ion 05-13 [place] present 10:30: [id number] 00 Medication oral med Meds Active Della [...] Observation Time Observation Value Comments SYSTOLIC mm[Hg] 2019-06-04 18:11:29 134 mm[Hg] mm[Hg] Method: Sit DIASTOLIC mm[Hg] 2019-06-04 18:11:29 79 mm[Hg] mm[Hg] Method: Sit PULSE 2019-06-04 18:11:29 73 /min /min RESP RATE 2019-06-04 18:11:29 16 /min /min TEMP 2019-06-04 18:11:29 97.2 [degF] Procedures This patient has no known procedures. Results This patient has no known results.
--- OUTSIDE RECORDS SUMMARY | 2019-06-08 19:55 | XMS REPORT ---
:1965 Author Organization [facility] Care Team Providers Name Role Phone [...] Stefany kill 04-17 [place] deficit: pt 12:15: [id number] 00 Respiratory dyspnea Respirator Active Stefany present y 04-17 [place] 12:15: [id number] 00 Endo/Vito anti-coagul Endo/Vito Active 2020-0 Stefany ation 3- [place] therapy 12:15: [id number] 00 Integument knowledge/s Integument Active 2020-0 Stefany kill 04-17 [place] deficit: pt 12:15: [id number] 00 Nutrition nutritional Nutrition Active 2020-0 Stefany restriction 04-17 [place] s 12:15: [id number] 00 Safety risk for Safety Active 2020-0 Stefany hospitaliza 04-17 [place] tion 12:15: [id number] 00 Safety structural Safety Active 2020-0 Stefany barriers - [place] present 12:15: [id number] 00 Safety safety Safety Active 2020-0 Stefany hazards - [place] present 12:15: [id number] 00 Safety sanitation Safety Active 2020-0 Stefany hazards 04-17 [place] present 12:15: [id number] 00 Safety fall risk Safety Active 2020-0 Stefany factor 04-17 [place] present 12:15: [id number] 00 Medication knowledge/s Meds Active 2020-0 Stefany kill 04-17 [place] deficit: pt 12:15: [id number] 00 Diagnoses knowledge/s Diagnoses Active 2020-0 Stefany kill 04-17 [place] deficit: cg 12:15: [id number] 00 Musculoskel transfer Musculoske Active 2020-0 Stefany etal assistance letal 04-17 [place] required 12:15: [id number] 00 Musculoskel requires Musculoske Active 2020-0 Stefany etal human letal 04-17 [place] assist to 12:15: [id number] leave home 00 Nutrition knowledge/s Nutrition Active 2020-0 Della kill 3-06 Carrier RN deficit: pt 16:55: 00 Nutrition knowledge/s Nutrition Active 2020-0 Della kill 3-06 Carrier RN deficit: cg 16:55: 00 Integument skin Integument Active 2020-0 [place] integrity 3-11 Carrier RN risk 16:20: 00 Cardio edema Cardiovasc Active 2020-0 Cherrise ular 3- [place] 10:30: [id number] 00 Endo/Vito insulin Endo/Vito Active 2020-0 Cherrise admn 3- [place] dependence 10:30: [id number] 00 Endo/Vito glucose Endo/Vito Active 2020-0 Cherrise testing 3-13 [place] dependence 10:30: [id number] 00 Elimination urinary Eliminatio Active Cherrise urgency n 04-26 [place] 10:30: [id number] 00 Elimination urinary Eliminatio Active Cherrise frequency n 04-26 [place] 10:30: [id number] 00 Neuro impaired Neuro/Emot Active Cherrise decision-ma ion 04-26 [place] brian 10:30: [id number] 00 Neuro memory Neuro/Emot Active Cherrise deficit ion 04-26 [place] needing 10:30: [id number] supervision 00 Safety can be left Safety Active Della alone for 05-05 Carrier RN only short 16:30: periods 00 Cardio hypertensio Cardiovasc Active Cherrise n ular 05-08 [place] 09:30: [id number] 00 Neuro depressive Neuro/Emot Active Cherrise feelings ion 05-13 [place] present 10:30: [id number] 00 Allergies, Adverse Reactions, Alerts Allergy Allergy [...] Unknown Unknown mg tablet mg tablet - Abel PANCHAL metFORMIN metFORMIN Yes Nic Unknown Unknown [...]
--- OUTSIDE RECORDS SUMMARY | 2019-06-08 19:55 | XMS REPORT | Continuity of Care Document ---
:1965 External Reference #:[id number] Author Name Abel Lucero M.D. (transmitted by agent of provider Nadia Maya) Address [address] [place] [address] Care Team Providers Name Role Phone Matthew Murphy MD - Internal Care Team Information Dental Practice Manager [phone] Medicine Abel Bojorquez MD - Vascular Care Team Information Dental Practice Manager Surgery Problems Active Problems Provider Date Type [...] Fredy Duarte M.D. Onset: 07/26/2016 Atherosclerosis of kas[place] arteries of left Naresh Quezada M.D. Onset: 05/01 leg with ulceration of other part of foot Social History Type Date Description Comments Sex Unknown Tobacco Use Start: Unknown Never Smoked Cigarettes Smoking Status Reviewed: 05/31/19 Never Smoked Cigarettes ETOH Use Denies alcohol [...] 15gm Leonides Johnson, 04/25/2019 e areas of 888840-6.1Unit/GM-% concerns as Cream needed for rash Doxycycline [...] Available Vital Signs Date Vital Result Comment 05/31/2019 10:01am Height 69 inches 5'9" Weight 375.00 lb Heart Rate 72 /min BP Systolic Sitting 124 mmHg BP Diastolic Sitting 74 mmHg Pain Level 0 O2 % BldC Oximetry 94 % BMI (Body Mass Index) 55.4 kg/m2 05/17/2019 11:10am Height 69 inches 5'9" Weight 375.00 lb Heart Rate 77 /min BP Systolic Sitting 126 mmHg BP Diastolic Sitting 80 mmHg Pain Level 0 O2 % BldC Oximetry 97 % BMI (Body Mass Index) 55.4 kg/m2 Results Test Acquired Date Facility Test Result H/L Range Note Laboratory test 04/09/2019 [facility] Point of 148 mg/dL High 70-100 [address] [place] [address] [phone] CBC Auto Diff 02/26/2019 [facility] White Blood 7.2 10^3/uL Normal 3.5-10.[address] [place] [address] [phone] Red Blood Count 3.97 10^6/uL Normal 3.70-4.87 [...] Blood Cells % 0.0 Comp Metabolic 02/26/2019 [facility] Sodium 142 mmol/L Normal 135-145 Panel [address] [place] [address] [phone] Potassium 4.6 mmol/L Normal 3.5-5.0 Chloride 103 [...] Egfr 60.9 >60 2 Laboratory test 02/26/2019 [facility] Vancomycin Trough 25.8 g /mL 3 finding [address] [place] [address] [phone] C Reactive Protein 5.45 mg/L Normal <8.01 1 [employer] Banking Representative: [id number] 2 Because ethnic data is not always [...] Infections Procedures Date Code Description Status 04/09/2019 13863 Debridement Skin,& sq Tissue Completed 04/09/2019 19858 Debridement Skin,& sq Tissue Completed 02/12/2019 59218 EKG, Interpretation Only Completed 02/12/2019 76927 Amputation Metatarsal W/Toe Completed 02/12/2019 01249 Amputation Metatarsal W/Toe Completed 02/10/2019 30952 EKG, Interpretation Only Completed 01/22/2019 07367 EKG Tracing & Interpretation Completed 03/25/2014 581142368 Diabetic Retinal Eye Exam Completed 03/25/2014 [id number] Mammogram Completed Medical Devices Description No Information Available Encounters Type Date Location Provider Dx Diagnosis Office Visit 05/31/2019 [facility] Abel Lucero, E11.40 Type 2 diabetes 9:45a at [facility] mellitus with diabetic neuropathy, unsp Office Visit 05/17/2019 [facility] Abel Lucero L97.529 Non- pressure 11:15a at [facility] chronic ulcer ot prt left foot w unsp severity E11.40 Type 2 diabetes mellitus with diabetic neuropathy, unsp Office Visit 05/07/2019 [facility] Samaria Schulz L97.529 Non- pressure 2:30p For Infectious JOHN Bacon chronic ulcer oth Diseases prt left foot w unsp severity I70.245 [facility] [place] arteries of left leg w ulceration ot prt foot E11.40 Type 2 diabetes mellitus with diabetic neuropathy, unsp E11.621 Type 2 diabetes mellitus with foot ulcer Office Visit 05/03/2019 [place] Abel L97.529 Non-pressure 10:30a Orthopedics at [facility] left foot w unsp severity Office Visit 05/02/2019 [facility] Naresh GChace I70.245 [facility] [place] 7:30a [facility] Of Isiah Queazda M.D. arteries of left leg w ulceration ot prt foot Z68.43 Body mass index (BMI) 50.0-59.9, adult E66.01 Morbid (severe) obesity due to excess calories Office Visit 04/16/2019 12:28p [facility] Samaria Schulz E11.621 Type 2 For Infectious Bacon, CENTER MACHINE SET UP OPERATOR diabetes Diseases mellitus with foot ulcer L97.529 Non-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 E11.40 Type 2 diabetes mellitus with diabetic neuropathy, unsp Office Visit 04/13/2019 12:27p [facility] E11.621 Type 2 For Infectious Bacon, CENTER MACHINE SET UP OPERATOR diabetes Diseases mellitus with foot ulcer L97.529 Non-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 E11.40 Type 2 diabetes mellitus with diabetic neuropathy, unsp Office Visit 04/13/2019 [facility] L97.529 Non-pressure 10:23a cedric Chamberlain M.D. chronic ulcer oth Hospitalists prt left foot w unsp severity E11.621 Type 2 diabetes mellitus with foot ulcer I10 Essential (primary) hypertension I48.0 Paroxysmal atrial fibrillation Office Visit 04/12/2019 [facility] L97.529 Non-pressure 10:23a cedric Chamberlain M.D. chronic ulcer oth Hospitalists prt left foot w unsp severity E11.621 Type 2 diabetes mellitus with foot ulcer I10 Essential (primary) hypertension E66.01 Morbid (severe) obesity due to excess calories I48.0 Paroxysmal atrial fibrillation Z68.43 Body mass index (BMI) 50.0-59.9, adult Office Visit 04/11/2019 [facility] T81.31xD Disruption of 12:26p For Infectious Arleen, CENTER MACHINE SET UP OPERATOR external Diseases operation (surgical) wound, NEC, subs E11.621 Type 2 diabetes mellitus with foot ulcer L97.529 Non-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 E11.40 Type 2 diabetes mellitus with diabetic neuropathy, unsp Office Visit 04/11/2019 [facility] L97.529 Non-pressure 10:23a cedric Chamberlain M.D. chronic ulcer oth Hospitalists prt left foot w unsp severity E11.621 Type 2 diabetes mellitus with foot ulcer I10 Essential (primary) hypertension E66.01 Morbid (severe) obesity due to excess calories I48.0 Paroxysmal atrial fibrillation Z68.43 Body mass index (BMI) 50.0-59.9, adult Office Visit 04/10/2019 [facility] T81.31xD Disruption of 12:22p For Infectious JOHN Bacon external Diseases operation (surgical) wound, NEC, subs E11.621 Type 2 diabetes mellitus with foot ulcer L97.529 Non-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 E11.40 Type 2 diabetes mellitus with diabetic neuropathy, unsp Office Visit 04/10/2019 10:22a [facility] Mounika Lottie, E11.621 Type 2 Assoccedric M.D. diabetes Hospitalists mellitus with foot ulcer L97.529 Non-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 I48.91 Unspecified atrial fibrillation Office Visit 04/10/2019 2:45p [facility] Naresh Yanez E11.621 Type 2 diabetes [facility] Apoorva Quezada mellitus with foot ulcer L97.529 Non-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 Office [facility], Z01.419 Encntr for prosthetist [facility] AVIATION MAINTENANCE INSTRUCTOR-Cde exam (general) (routine) w/o abn findings Z12.31 Encntr screen mammogram for malignant neoplasm of breast Office Visit 03/26/2019 [facility] Cesar Dickson L97.529 Non-pressure 1:40p For Infectious Apoorva Mabry chronic ulcer oth Diseases prt left foot w unsp severity E11.621 Type 2 diabetes mellitus with foot ulcer Office Visit 02/26/2019 [facility] Cesar Dickson M86.672 Other chronic 4:20p For Infectious Apoorva Mabry osteomyelitis, left Diseases ankle and foot E11.69 Type 2 diabetes mellitus with other specified complication Office Visit 02/20/2019 [facility] Mary M86.9 Osteomyelitis, 8:50a Assoc,cedric Alcala MD unspecified Hospitalists I38 Endocarditis, valve unspecified E11.40 Type 2 diabetes mellitus with diabetic neuropathy, unsp I48.0 Paroxysmal atrial fibrillation I10 Essential (primary) hypertension G47.33 Obstructive sleep apnea (adult) (pediatric) [facility] E11.69 Type 2 diabetes 10:36a For Infectious Baocn, CENTER MACHINE SET UP OPERATOR mellitus with Diseases other specified complication M86.672 Other chronic osteomyelitis, left ankle and foot Z89.422 Acquired absence of other left toe(s) Office 02/19/2019 [facility] M86.672 Other chronic Visit 8:49a cedric Chamberlain MD osteomyelitis, left Hospitalists ankle and foot E11.621 Type 2 diabetes mellitus with foot ulcer E11.40 Type 2 diabetes mellitus with diabetic neuropathy, unsp F41.9 Anxiety disorder, unspecified F32.9 Major depressive disorder, single episode, unspecified I48.0 Paroxysmal atrial fibrillation Office Visit 02/19/2019 [facility] E11.69 Type 2 diabetes 10:35a For Infectious Arleen, CENTER MACHINE SET UP OPERATOR mellitus with Diseases other specified complication M86.672 Other chronic osteomyelitis, left ankle and foot Z89.422 Acquired absence of other left toe(s) Office 02/18/2019 [facility] M86.672 Other chronic Visit 8:49a cedric Chamberlain PA osteomyelitis, Hospitalists left ankle and foot E11.621 Type 2 diabetes mellitus with foot ulcer E11.40 Type 2 diabetes mellitus with diabetic neuropathy, unsp I48.0 Paroxysmal atrial fibrillation F41.9 Anxiety disorder, unspecified F32.9 Major depressive disorder, single episode, unspecified Office 02/17/2019 [facility] M86.672 Other chronic Visit 8:48a cedric Chamberlain PA osteomyelitis, Hospitalists left ankle and foot E11.621 Type 2 diabetes mellitus with foot ulcer E11.40 Type 2 diabetes mellitus with diabetic neuropathy, unsp I48.0 Paroxysmal atrial fibrillation F41.9 Anxiety disorder, unspecified F32.9 Major depressive disorder, single episode, unspecified Office 02/16/2019 [facility] M86.672 Other chronic Visit 8:48a cedric Chamberlain PA osteomyelitis, Hospitalists left ankle and foot E11.621 Type 2 diabetes mellitus with foot ulcer E11.40 Type 2 diabetes mellitus with diabetic neuropathy, unsp I48.0 Paroxysmal atrial fibrillation F41.9 Anxiety disorder, unspecified F32.9 Major depressive disorder, single episode, unspecified Office Visit 02/16/2019 [facility] E11.69 Type 2 diabetes 10:33a For Infectious Bacon, CENTER MACHINE SET UP OPERATOR mellitus with Diseases other specified complication M86.672 Other chronic osteomyelitis, left ankle and foot E11.621 Type 2 diabetes mellitus with foot ulcer L97.529 Non-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 Z89.422 Acquired absence of other left toe(s) [facility] M86.672 Other chronic Visit 8:46a cedric Chamberlain PA osteomyelitis, Hospitalists left ankle and foot E11.621 Type 2 diabetes mellitus with foot ulcer E11.40 Type 2 diabetes mellitus with diabetic neuropathy, unsp I48.91 Unspecified atrial fibrillation F41.9 Anxiety disorder, unspecified F32.9 Major depressive disorder, single episode, unspecified [facility] M86.672 Other chronic Visit 8:42a cedric Chamberlain PA osteomyelitis, Hospitalists left ankle and foot E11.621 Type 2 diabetes mellitus with foot ulcer E11.40 Type 2 diabetes mellitus with diabetic neuropathy, unsp I48.91 Unspecified atrial fibrillation F41.9 Anxiety disorder, unspecified F32.9 Major depressive disorder, single episode, unspecified Office Visit 02/13/2019 [facility] M86.672 Other chronic 8:42a cedric Chamberlain PA osteomyelitis, left Hospitalists ankle and foot E11.621 Type 2 diabetes mellitus with foot ulcer F41.9 Anxiety disorder, unspecified F32.9 Major depressive disorder, single episode, unspecified I48.91 Unspecified atrial fibrillation G47.33 Obstructive sleep apnea (adult) (pediatric) Office Visit 02/12/2019 [facility] M86.672 Other chronic 8:41a Asscedric corona PA osteomyelitis, left Hospitalists ankle and foot E11.621 Type 2 diabetes mellitus with foot ulcer F41.9 Anxiety disorder, unspecified F32.9 Major depressive disorder, single episode, unspecified I48.91 Unspecified atrial fibrillation G47.33 Obstructive sleep apnea (adult) (pediatric) Office Visit 02/12/2019 [facility] E11.69 Type 2 diabetes 10:31a For Infectious Arleen CENTER MACHINE SET UP OPERATOR mellitus with Diseases other specified complication M86.672 Other chronic osteomyelitis, left ankle and foot E11.621 Type 2 diabetes mellitus with foot ulcer L97.529 Non-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 Office Visit 02/11/2019 [facility] Alex M86.672 Other chronic 8:41a Assoccedric PA osteomyelitis, left Hospitalists ankle and foot E11.621 Type 2 diabetes mellitus with foot ulcer F41.9 Anxiety disorder, unspecified F32.9 Major depressive disorder, single episode, unspecified I48.91 Unspecified atrial fibrillation Office Visit 02/10/2019 [facility] Alex M86.672 Other chronic 8:40a Assoc,DAT Corona osteomyelitis, left Hospitalists ankle and foot E11.621 Type 2 diabetes mellitus with foot ulcer N18.9 Chronic kidney disease, unspecified I48.0 Paroxysmal atrial fibrillation I10 Essential (primary) hypertension G47.33 Obstructive sleep apnea (adult) (pediatric) Office Visit 02/10/2019 [place] Della E11.40 Type 2 diabetes 12:33p Orthopedics at [place] mellitus with [place] diabetic neuropathy, unsp M86.172 Other acute osteomyelitis, left ankle and foot Office Visit 01/22/2019 2:20p [facility] Chris Santos I48.0 Paroxysmal atrial Of Archival Records Clerk Morin, DO fibrillation FAC I63.9 Cerebral infarction, unspecified Z95.2 Presence of prosthetic heart valve E78.5 Hyperlipidemia, unspecified E11.8 Type 2 diabetes mellitus with unspecified complications Assessments Date Code Description Provider 05/31/2019 E11.40 Type 2 diabetes mellitus with Abel Lucero M.D. diabetic neuropathy, unspecified 05/17/2019 L97.529 Non-pressure chronic ulcer of other Abel Lucero M.D. part of left foot with unspecified severity 05/17/2019 E11.40 Type 2 diabetes mellitus with Abel Lucero M.D. diabetic neuropathy, unspecified 05/07/2019 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 severity 05/07/2019 I70.245 Atherosclerosis of [place] arteries Samaria Bacon NP of left leg with ulceration of other part of foot 05/07/2019 E11.40 Type 2 diabetes mellitus with Samaria Bacon NP diabetic neuropathy, unspecified 05/07/2019 E11.621 Type 2 diabetes mellitus with foot Samaria Bacon NP ulcer 05/03/2019 L97.529 Non-pressure chronic ulcer of other Abel Lucero M.D. part of left foot with unspecified severity 05/02/2019 I70.245 Atherosclerosis of [place] arteries Naresh Quezada M.D. of left leg [...] ulcer 04/13/2019 L97.529 Non-pressure chronic ulcer of other Mounika [...] encounter 04/11/2019 L97.529 Non-pressure chronic ulcer of other Mounika [...] 2 diabetes mellitus with foot Samaria Zeus Bacon, JOHN ulcer 04/10/2019 E11.621 Type 2 diabetes mellitus with foot Naresh Quezada M.D. ulcer 04/10/2019 L97.529 Non-pressure chronic ulcer of other Samaria Bacon, JOHN part of left foot with unspecified severity 04/10/2019 L97.529 Non-pressure chronic ulcer of other Mounika Tafoya M.D. part of left foot with unspecified severity 04/10/2019 E11.40 Type 2 diabetes mellitus with Samaria Zeus Bacon, JOHN diabetic neuropathy, unspecified 04/10/2019 L97.529 Non-pressure chronic ulcer of other Naresh Quezada M.D. part of left foot with unspecified severity 04/10/2019 I48.91 Unspecified atrial fibrillation Mounika Tafoya M.D. 04/09/2019 M86.672 Other chronic osteomyelitis, left OSMAR Lopez ankle and foot 04/09/2019 M86.672 Other chronic osteomyelitis, left Abel Lucero M.D. ankle and foot 04/09/2019 T81.31xD Disruption of external operation OSMAR Lopez (surgical) wound, not elsewhere classified, subsequent encounter 04/09/2019 T81.31xD Disruption of external operation Abel Lucero M.D. (surgical) wound, not elsewhere classified, subsequent encounter 04/05/2019 Z01.419 Encounter for gynecological Steffen Kim examination (general) (routine) without abnormal findings 04/05/2019 L97.529 Non-pressure chronic ulcer of other Abel Lucero M.D. part of left foot with unspecified severity 04/05/2019 Z12.31 Encounter for screening mammogram Steffen Kim for malignant neoplasm of breast 04/05/2019 E11.621 [...] 03/06/2019 E11.69 Type 2 diabetes mellitus with other Abel Lucero M.D. specified complication 02/27/2019 M86.672 Other [...] 02/18/2019 M86.672 Other chronic osteomyelitis, left Dee Deefreedom Ordonez, PA ankle and foot 02/18/2019 E11.621 Type 2 diabetes mellitus with foot Dee Dee Ordonez PA ulcer 02/18/2019 E11.40 Type 2 diabetes mellitus with Dee Deefreedom Ordonez PA diabetic neuropathy, unspecified 02/18/2019 I48.0 Paroxysmal atrial fibrillation Dee Dee José Luis, PA 02/18/2019 F41.9 Anxiety disorder, unspecified Dee Dee Ordonez, PA 02/18/2019 F32.9 Major depressive disorder, single Dee Deefreedom Martínezham, PA episode, unspecified 02/17/2019 M86.672 Other chronic osteomyelitis, left Dee Dee Ordonez, PA ankle and foot 02/17/2019 E11.621 Type 2 diabetes mellitus with foot Dee Dee Ordonez, PA ulcer 02/17/2019 E11.40 Type 2 diabetes mellitus with Dee Dee Ordonez, PA diabetic neuropathy, unspecified 02/17/2019 I48.0 Paroxysmal atrial fibrillation Dee Dee José Luis, PA 02/17/2019 F41.9 Anxiety disorder, unspecified Dee Dee Ordonez, PA 02/17/2019 F32.9 Major depressive disorder, single Dee Dee Ordonez, PA episode, unspecified 02/16/2019 M86.672 Other chronic osteomyelitis, left Dee Dee Ordonez, PA ankle and foot 02/16/2019 E11.69 Type 2 diabetes mellitus with other Samaria Bacon, CENTER MACHINE SET UP OPERATOR specified complication 02/16/2019 E11.621 Type 2 diabetes mellitus with foot Dee Dee Ordonez, PA ulcer 02/16/2019 M86.672 Other chronic osteomyelitis, left Samaria Chapmanmorrodenisekita Bacon CENTER MACHINE SET UP OPERATOR ankle and foot 02/16/2019 E11.40 Type 2 diabetes mellitus with Dee Deefreedom Martínez[place], PA diabetic neuropathy, unspecified 02/16/2019 E11.621 Type 2 diabetes mellitus with foot Samaria Anthonymirthaeliot Bacon NP ulcer 02/16/2019 I48.0 Paroxysmal atrial fibrillation Dee Dee Ordonez, PA 02/16/2019 L97.529 Non-pressure chronic ulcer of other Samaria Bacon, CENTER MACHINE SET UP OPERATOR part of left foot with unspecified severity 02/16/2019 F41.9 Anxiety disorder, unspecified Dee Dee Ordonez, PA 02/16/2019 Z89.422 Acquired absence of other left Samaria Schulz JOHN Bacon toe(s) 02/16/2019 F32.9 Major depressive disorder, single Dee Dee Ordonez, PA episode, unspecified 02/15/2019 M86.672 Other chronic osteomyelitis, left Dee Deefreedom Odronez, PA ankle and foot 02/15/2019 E11.621 Type 2 diabetes mellitus with foot Dee Dee Ordonez, PA ulcer 02/15/2019 E11.40 Type 2 diabetes mellitus with Dee Deefreedom Martí[place], PA diabetic neuropathy, unspecified 02/15/2019 I48.91 Unspecified [...] neuropathy, unspecified 02/14/2019 I48.91 Unspecified atrial fibrillation DAT Oquendo 02/14/2019 F41.9 Anxiety disorder, unspecified DAT Oquendo 02/14/2019 F32.9 Major depressive disorder, single DAT Oquendo episode, unspecified 02/13/2019 M86.672 Other chronic osteomyelitis, left DAT Justice ankle and foot 02/13/2019 E11.621 Type 2 diabetes mellitus with foot Alex Diamond, DAT ulcer 02/13/2019 F41.9 Anxiety disorder, unspecified Alex Diamond, PA 02/13/2019 F32.9 Major depressive disorder, single DAT Justice episode, unspecified 02/13/2019 I48.91 Unspecified atrial fibrillation DAT Justice 02/13/2019 G47.33 Obstructive sleep apnea (adult) DAT Justice (pediatric) 02/12/2019 M86.672 Other chronic osteomyelitis, left DAT Justice ankle and foot 02/12/2019 E11.69 Type 2 diabetes mellitus with other Samaria Bacon NP specified complication 02/12/2019 E11.621 Type 2 diabetes mellitus with foot DAT Justice ulcer 02/12/2019 M86.172 Other acute osteomyelitis, left Chris Morin, DO [facility] ankle and foot 02/12/2019 F41.9 Anxiety disorder, unspecified Alex Diamond PA 02/12/2019 M86.672 Other chronic osteomyelitis, left Samaria Bacon NP ankle and foot 02/12/2019 F32.9 Major depressive disorder, single DAT Justice episode, unspecified 02/12/2019 M86.172 Other acute osteomyelitis, left Abhilash De La Torre, RPA-C ankle and foot 02/12/2019 I48.91 Unspecified atrial fibrillation DAT Justice 02/12/2019 E11.621 Type 2 diabetes mellitus with foot Samaria Bacon NP ulcer 02/12/2019 G47.33 Obstructive sleep apnea (adult) DAT Justice (pediatric) 02/12/2019 M86.172 Other acute osteomyelitis, left Abel Lucero M.D. ankle and foot 02/12/2019 L97.529 Non-pressure chronic ulcer of other Samaria [...] foot 02/10/2019 R94.31 Abnormal electrocardiogram [ECG] Chris Morin DO FAC [EKG] 02/10/2019 E11.621 Type 2 diabetes mellitus with foot DAT Justice ulcer 02/10/2019 N18.9 Chronic kidney disease, unspecified DAT Justice 02/10/2019 I48.0 Paroxysmal atrial fibrillation DAT Justice 02/10/2019 I10 Essential (primary) hypertension DAT Justice 02/10/2019 G47.33 Obstructive sleep apnea (adult) DAT Justice (pediatric) 01/22/2019 I48.0 Paroxysmal atrial fibrillation Chris Morin DO FACC 01/22/2019 I63.9 Cerebral infarction, unspecified Chris Morin DO FACC 01/22/2019 Z95.2 Presence of prosthetic heart valve Chris Morin DO FACC 01/22/2019 E78.5 Hyperlipidemia, unspecified Chris Morin DO FACC 01/22/2019 E11.8 Type 2 diabetes mellitus with Chris Morin DO FACC unspecified complications Plan of Treatment Future Appointment(s):06/18/2019 10:00 am - Leonides Johnson MD at [facility]/21/2019 10:00 am - Samaria Bacon NP [facility]/04/2020 10:00 am - Cristhian Kiser MD at [facility]05/31/2019 - Abel Lucero M.D.E11.40 Type 2 diabetes mellitus with diabetic neuropathy, unspecifiedFollow up:[address] 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 please eval [address] [place] [address] [phone] Lexii Forrester MD Referral to the [facility] for Healthy Sent Living to explore weight loss options [address] [place] [address] [phone] Naresh Quezada MD Left foot non healing wound, eval blood flow Closed and need for further intervention [address] [facility] [address] [place] [address] [phone]
--- OUTSIDE RECORDS SUMMARY | 2019-06-08 19:55 | XMS REPORT ---
:1965 Author Organization [facility] Care Team Providers Name Role Phone [...] Stefany kill 04-17 Veda deficit: pt 12:15: [id number] 00 Respiratory dyspnea Respirator Active Stefany present y 04-17 [place] 12:15: [id number] 00 Endo/Vito anti-coagul Endo/Vito Active 2020-0 Stefany ation 3- [place] therapy 12:15: [id number] 00 Integument knowledge/s Integument Active 2020-0 Stefany kill 04-17 [place] deficit: pt 12:15: [id number] 00 Nutrition nutritional Nutrition Active 2020-0 Stefany restriction 04-17 [place] s 12:15: [id number] 00 Safety risk for Safety Active 2020-0 Stefany hospitaliza 04-17 [place] tion 12:15: [id number] 00 Safety structural Safety Active 2020-0 Stefany barriers - [place] present 12:15: [id number] 00 Safety safety Safety Active 2020-0 Stefany hazards - [place] present 12:15: [id number] 00 Safety sanitation Safety Active 2020-0 Stefany hazards 04-17 [place] present 12:15: [id number] 00 Safety fall risk Safety Active 2020-0 Stefany factor 04-17 [place] present 12:15: [id number] 00 Medication knowledge/s Meds Active 2020-0 Stefany kill 04-17 [place] deficit: pt 12:15: [id number] 00 Diagnoses knowledge/s Diagnoses Active 2020-0 Stefany kill 04-17 [place] deficit: cg 12:15: [id number] 00 Musculoskel transfer Musculoske Active 2020-0 Stefany etal assistance letal 04-17 [place] required 12:15: [id number] 00 Musculoskel requires Musculoske Active 2020-0 Stefany etal human letal 04-17 [place] assist to 12:15: [id number] leave home 00 Nutrition knowledge/s Nutrition Active 2020-0 Della kill 3-06 Carrier RN deficit: pt 16:55: 00 Nutrition knowledge/s Nutrition Active 2020-0 Della kill 3-06 Carrier RN deficit: cg 16:55: 00 Integument skin Integument Active 2020-0 Della integrity 3-11 Carrier RN risk 16:20: 00 Cardio edema Cardiovasc Active 2020-0 Cherrise ular 3- Osmond 10:30: [id number] 00 Endo/Vito insulin Endo/Vito Active 2020-0 Cherrise admn 3- Surjit dependence 10:30: [id number] 00 Endo/Vito glucose Endo/Vito Active 2020-0 Cherrise testing 3-13 Osmond dependence 10:30: [id number] 00 Elimination urinary Eliminatio Active Cherrise urgency n 04-26 Osmond 10:30: [id number] 00 Elimination urinary Eliminatio Active Cherrise frequency n 04-26 Osmond 10:30: [id number] 00 Neuro impaired Neuro/Emot Active Cherrise decision-ma ion 04-26 Osmond brian 10:30: [id number] 00 Neuro memory Neuro/Emot Active Cherrise deficit ion 04-26 Osmond needing 10:30: [id number] supervision 00 Safety can be left Safety Active Della alone for 05-05 Carrier RN only short 16:30: periods 00 Cardio hypertensio Cardiovasc Active Cherrise n ular 05-08 Osmond 09:30: [id number] 00 Neuro depressive Neuro/Emot Active Cherrise feelings ion 05-13 Osmond present 10:30: [id number] 00 Medication oral med Meds Active Della [...] RATE 2019-05-28 18:11:22 16 /min /min TEMP 2019-05-30 18:11:24 98.0 [degF] Procedures This patient has no known procedures. Results This patient has no known results.
--- OUTSIDE RECORDS SUMMARY | 2019-06-08 19:55 | XMS REPORT | Continuity of Care Document ---
:1965 External Reference #:[id number] Author Name Abel Lucero M.D. (transmitted by agent of provider Abhilash De La Torre) Address [address] [facility] [place] [address] Care Team Providers Name Role Phone Matthew Murphy MD - Internal Care Team Information [facility] Medicine Abel Bojorquez MD - Vascular Care Team Information [facility] Surgery Problems Active Problems Provider Date Type [...] Fredy Duarte M.D. Onset: 07/26/2016 Atherosclerosis of tanana arteries of left Naresh Quezada M.D. Onset: 05/01 leg with ulceration of other part of foot Social History Type Date Description Comments Sex Unknown Tobacco Use Start: Unknown Never Smoked Cigarettes Smoking Status Reviewed: 05/17/19 Never Smoked Cigarettes ETOH Use Denies alcohol [...] 15gm Leonides Johnson, 04/25/2019 e areas of 888222-5.1Unit/GM-% concerns as Cream needed for rash Doxycycline [...] Available Vital Signs Date Vital Result Comment 05/17/2019 11:10am Height 69 inches 5'9" Weight 375.00 lb Heart Rate 77 /min BP Systolic Sitting 126 mmHg BP Diastolic Sitting 80 mmHg Pain Level 0 O2 % BldC Oximetry 97 % BMI (Body Mass Index) 55.4 kg/m2 05/03/2019 10:46am Height 69 inches 5'9" Weight 373.00 lb Heart Rate 83 /min Respiratory Rate 18 /min Body Temperature 98.1 F Pain Level 0 BMI (Body Mass Index) 55.1 kg/m2 Results Test Acquired Date Facility Test Result H/L Range Note Laboratory test 04/09/2019 [facility] Point of 148 mg/dL High 70-[address] [place] [address] [phone] CBC Auto Diff 02/26/2019 [facility] White Blood 7.2 10^3/uL Normal 3.5-10.[address] [place] [address] [phone] Red Blood Count 3.97 10^6/uL Normal 3.70-4.87 [...] Blood Cells % 0.0 Comp Metabolic 02/26/2019 [facility] Sodium 142 mmol/L Normal 135-145 Panel [address] [place] [address] [phone] Potassium 4.6 mmol/L Normal 3.5-5.0 Chloride 103 [...] Egfr 60.9 >60 2 Laboratory test 02/26/2019 [facility] Vancomycin Trough 25.8 g /mL 3 finding [address] [place] [address] [phone] C Reactive Protein 5.45 mg/L Normal <8.01 1 Flour Broker: [id number] 2 Because ethnic data is not always [...] Infections Procedures Date Code Description Status 04/09/2019 27391 Debridement Skin,& sq Tissue Completed 04/09/2019 89065 Debridement Skin,& sq Tissue Completed 02/12/2019 02714 EKG, Interpretation Only Completed 02/12/2019 55709 Amputation Metatarsal W/Toe Completed 02/12/2019 52985 Amputation Metatarsal W/Toe Completed 02/10/2019 42951 EKG, Interpretation Only Completed 01/22/2019 40563 EKG Tracing & Interpretation Completed 03/25/2014 [id number] Diabetic Retinal Eye Exam Completed 03/25/2014 [id number] Mammogram Completed Medical Devices Description No Information Available Encounters Type Date Location Provider Dx Diagnosis Office Visit 05/07/2019 [facility] Zeus L97.529 Non- pressure 2:30p Infectious Arleen [employer] OFFICER chronic ulcer Diseases oth prt left foot w unsp severity I70.245 Athscl tanana arteries of left leg w ulceration oth prt foot E11.40 Type 2 diabetes mellitus with diabetic neuropathy, unsp E11.621 Type 2 diabetes mellitus with foot ulcer Office Visit 05/03/2019 [facility] L97.529 Non-pressure 10:30a Orthopedics at Apoorva Lucero chronic ulcer oth Duncan prt left foot w unsp severity Office Visit 05/02/2019 [facility] Naresh Yanez I70.245 Athscl tanana 7:30a Medicine Of Isiah Quezada M.D. arteries of left leg w ulceration oth prt foot Z68.43 Body mass index (BMI) 50.0-59.9, adult E66.01 Morbid (severe) obesity due to excess calories [facility] 2 For Infectious JOHN Bacon diabetes Diseases mellitus with foot ulcer L97.529 Non-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 E11.40 Type 2 diabetes mellitus with diabetic neuropathy, unsp Office Visit 04/13/2019 12:27p [facility] Zeus E11.621 Type 2 For Infectious Arleen [employer] OFFICER diabetes Diseases mellitus with foot ulcer L97.529 Non-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 E11.40 Type 2 diabetes mellitus with diabetic neuropathy, unsp Office Visit 04/13/2019 [facility] L97.529 Non-pressure 10:23a cedric Chamberlain M.D. chronic ulcer oth Hospitalists prt left foot w unsp severity E11.621 Type 2 diabetes mellitus with foot ulcer I10 Essential (primary) hypertension I48.0 Paroxysmal atrial fibrillation Office Visit 04/12/2019 [facility] L97.529 Non-pressure 10:23a cedric Chamberlain M.D. chronic ulcer oth Hospitalists prt left foot w unsp severity E11.621 Type 2 diabetes mellitus with foot ulcer I10 Essential (primary) hypertension E66.01 Morbid (severe) obesity due to excess calories I48.0 Paroxysmal atrial fibrillation Z68.43 Body mass index (BMI) 50.0-59.9, adult Office Visit 04/11/2019 [facility] T81.31xD Disruption of 12:26p For Infectious Bacon, [employer]ITY OFFICER external Diseases operation (surgical) wound, NEC, subs E11.621 Type 2 diabetes mellitus with foot ulcer L97.529 Non-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 E11.40 Type 2 diabetes mellitus with diabetic neuropathy, unsp Office Visit 04/11/2019 [facility] L97.529 Non-pressure 10:23a cedric Chamberlain M.D. chronic ulcer oth Hospitalists prt left foot w unsp severity E11.621 Type 2 diabetes mellitus with foot ulcer I10 Essential (primary) hypertension E66.01 Morbid (severe) obesity due to excess calories I48.0 Paroxysmal atrial fibrillation Z68.43 Body mass index (BMI) 50.0-59.9, adult Office Visit 04/10/2019 2:45p [facility] Naresh G. E11.621 Type 2 diabetes Medicine Of Isiah Quezada M.D. mellitus with foot ulcer L97.529 Non-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 Office Visit 04/[facility]2019 [facility] E11.621 Type 2 cedric Chamberlain M.D. diabetes Hospitalists mellitus with foot ulcer L97.529 Non-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 I48.91 Unspecified atrial fibrillation Office Visit 04/10/2019 [facility] Zeus T81.31xD Disruption of 12:22p For Infectious Arleen [employer] OFFICER external Diseases operation (surgical) wound, NEC, subs E11.621 Type 2 diabetes mellitus with foot ulcer L97.529 Non-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 E11.40 Type 2 diabetes mellitus with diabetic neuropathy, unsp Office Visit 04/05/2019 1:00p [facility] Shona Wei, Z01.419 Encntr for photographer motion picture [facility] SPINDLE SETTER-Cde exam (general) (routine) w/o abn findings Z12.31 Encntr screen mammogram for malignant neoplasm of breast Office Visit 03/26/2019 [facility] Cesar Dickson L97.529 Non-pressure 1:40p For Infectious Apoorva Mabry chronic ulcer oth Diseases prt left foot w unsp severity E11.621 Type 2 diabetes mellitus with foot ulcer Office Visit 02/26/2019 [facility] Cesar Dickson M86.672 Other chronic 4:20p For Infectious Apoorva Mabry osteomyelitis, left Diseases ankle and foot E11.69 Type 2 diabetes mellitus with other specified complication [facility]el[facility], 8:50a cedric Chamberlain MD unspecified Hospitalists I38 Endocarditis, valve unspecified E11.40 Type 2 diabetes mellitus with diabetic neuropathy, unsp I48.0 Paroxysmal atrial fibrillation I10 Essential (primary) hypertension G47.33 Obstructive sleep apnea (adult) (pediatric) Office Visit [facility] E11.69 Type 2 diabetes 10:36a For Infectious JOHN Bacon mellitus with Diseases other specified complication M86.672 Other chronic osteomyelitis, left ankle and foot Z89.422 Acquired absence of other left toe(s) [facility] Other chronic Visit 8:49a cedric Chamberlain MD osteomyelitis, left Hospitalists ankle and foot E11.621 Type 2 diabetes mellitus with foot ulcer E11.40 Type 2 diabetes mellitus with diabetic neuropathy, unsp F41.9 Anxiety disorder, unspecified F32.9 Major depressive disorder, single episode, unspecified I48.0 Paroxysmal atrial fibrillation Office Visit 02/19/2019 [facility] E11.69 Type 2 diabetes 10:35a For Infectious Bacon, [employer] SEC[employer]ITY OFFICER mellitus with Diseases other specified complication M86.672 Other chronic osteomyelitis, left ankle and foot Z89.422 Acquired absence of other left toe(s) Office 02/18/2019 [facility] M86.672 Other chronic Visit 8:49a cedric Chamberlain PA osteomyelitis, Hospitalists left ankle and foot E11.621 Type 2 diabetes mellitus with foot ulcer E11.40 Type 2 diabetes mellitus with diabetic neuropathy, unsp I48.0 Paroxysmal atrial fibrillation F41.9 Anxiety disorder, unspecified F32.9 Major depressive disorder, single episode, unspecified Office 02/17/2019 [facility] M86.672 Other chronic Visit 8:48a cedric Chamberlain PA osteomyelitis, Hospitalists left ankle and foot E11.621 Type 2 diabetes mellitus with foot ulcer E11.40 Type 2 diabetes mellitus with diabetic neuropathy, unsp I48.0 Paroxysmal atrial fibrillation F41.9 Anxiety disorder, unspecified F32.9 Major depressive disorder, single episode, unspecified Office 02/16/2019 [facility] M86.672 Other chronic Visit 8:48a cedric Chamberlain PA osteomyelitis, Hospitalists left ankle and foot E11.621 Type 2 diabetes mellitus with foot ulcer E11.40 Type 2 diabetes mellitus with diabetic neuropathy, unsp I48.0 Paroxysmal atrial fibrillation F41.9 Anxiety disorder, unspecified F32.9 Major depressive disorder, single episode, unspecified Office Visit 02/16/2019 [facility] E11.69 Type 2 diabetes 10:33a For Infectious Bacon, [employer]ITY OFFICER mellitus with Diseases other specified complication M86.672 Other chronic osteomyelitis, left ankle and foot E11.621 Type 2 diabetes mellitus with foot ulcer L97.529 Non-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 Z89.422 Acquired absence of other left toe(s) Office 02/15/2019 [facility] M86.672 Other chronic Visit 8:46a cedric Chamberlain PA osteomyelitis, Hospitalists left ankle and foot E11.621 Type 2 diabetes mellitus with foot ulcer E11.40 Type 2 diabetes mellitus with diabetic neuropathy, unsp I48.91 Unspecified atrial fibrillation F41.9 Anxiety disorder, unspecified F32.9 Major depressive disorder, single episode, unspecified Office 02/14/2019 [facility] Dee Dee M86.672 Other chronic Visit 8:42a Asscedric corona PA osteomyelitis, Hospitalists left ankle and foot E11.621 Type 2 diabetes mellitus with foot ulcer E11.40 Type 2 diabetes mellitus with diabetic neuropathy, unsp I48.91 Unspecified atrial fibrillation F41.9 Anxiety disorder, unspecified F32.9 Major depressive disorder, single episode, unspecified Office Visit 02/13/2019 [facility] Alex M86.672 Other chronic 8:42a cedric Chamberlain PA osteomyelitis, left Hospitalists ankle and foot E11.621 Type 2 diabetes mellitus with foot ulcer F41.9 Anxiety disorder, unspecified F32.9 Major depressive disorder, single episode, unspecified I48.91 Unspecified atrial fibrillation G47.33 Obstructive sleep apnea (adult) (pediatric) Office Visit 02/12/2019 [facility] Alex M86.672 Other chronic 8:41a cedric Chamberlain PA osteomyelitis, left Hospitalists ankle and foot E11.621 Type 2 diabetes mellitus with foot ulcer F41.9 Anxiety disorder, unspecified F32.9 Major depressive disorder, single episode, unspecified I48.91 Unspecified atrial fibrillation G47.33 Obstructive sleep apnea (adult) (pediatric) Office Visit 02/12/2019 [facility] E11.69 Type 2 diabetes 10:31a For Infectious Bacon, [employer]POR[employer] SEC[employer]ITY OFFICER mellitus with Diseases other specified complication M86.672 Other chronic osteomyelitis, left ankle and foot E11.621 Type 2 diabetes mellitus with foot ulcer L97.529 Non-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 Office Visit 02/11/2019 [facility] Alex M86.672 Other chronic 8:41a Assoccedric PA osteomyelitis, left Hospitalists ankle and foot E11.621 Type 2 diabetes mellitus with foot ulcer F41.9 Anxiety disorder, unspecified F32.9 Major depressive disorder, single episode, unspecified I48.91 Unspecified atrial fibrillation Office Visit 02/10/2019 [facility] M86.672 Other chronic 8:40a Assoc,pc DAT Diamond osteomyelitis, left Hospitalists ankle and foot E11.621 Type 2 diabetes mellitus with foot ulcer N18.9 Chronic kidney disease, unspecified I48.0 Paroxysmal atrial fibrillation I10 Essential (primary) hypertension G47.33 Obstructive sleep apnea (adult) (pediatric) Office Visit 02/10/2019 [facility] Della E11.40 Type 2 diabetes 12:33p Orthopedics at [place] mellitus with Duncan diabetic neuropathy, unsp M86.172 Other acute osteomyelitis, left ankle and foot Office Visit 01/22/2019 2:20p [facility] Chris Santos I48.0 Paroxysmal atrial Of Resin Filterer Morin, DO fibrillation FAC I63.9 Cerebral infarction, unspecified Z95.2 Presence of prosthetic heart valve E78.5 Hyperlipidemia, unspecified E11.8 Type 2 diabetes mellitus with unspecified complications Assessments Date Code Description Provider 05/17/2019 L97.529 Non-pressure chronic ulcer of other Abel Lucero M.D. part of left foot with unspecified severity 05/17/2019 E11.40 Type 2 diabetes mellitus with Abel Lucero M.D. diabetic neuropathy, unspecified 05/07/2019 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 severity 05/07/2019 I70.245 Atherosclerosis of tanana arteries Samaria Bacon NP of left leg with ulceration of other part of foot 05/07/2019 E11.40 Type 2 diabetes mellitus with Samaria Bacon NP diabetic neuropathy, unspecified 05/07/2019 E11.621 Type 2 diabetes mellitus with foot Samaria Bacon NP ulcer 05/03/2019 L97.529 Non-pressure chronic ulcer of other Abel Lucero M.D. part of left foot with unspecified severity 05/02/2019 I70.245 Atherosclerosis of tanana arteries Naresh Quezada M.D. of left leg with ulceration of other part of foot 05/02/2019 Z68.43 Body mass index (BMI) 50.0-59.9, Naresh Quezada M.D. adult 05/02/2019 E66.01 Morbid (severe) obesity due to Naresh Quezada M.D. excess calories 04/24/2019 E11.621 Type 2 diabetes mellitus with foot Abel Lucero M.D. ulcer 04/16/2019 E11.621 Type 2 diabetes mellitus with foot Samaria Pandyakita Bacon, [employer]POR[employer] SECURITY OFFICER ulcer 04/16/2019 L97.529 Non-pressure chronic ulcer of other Samaria Arimorromirthaadelakita Arleen, CORPOR[employer] SECURITY OFFICER part of left foot with unspecified severity 04/16/2019 E11.40 Type 2 diabetes mellitus with Samaria Chapmanmorromirthaeliot Bacon, [employer]PORATE SECURITY OFFICER diabetic neuropathy, unspecified 04/13/2019 E11.621 Type 2 diabetes mellitus with foot Samaria Zeus Bacon, CORPORATE SECURITY OFFICER ulcer 04/13/2019 L97.529 Non-pressure chronic ulcer of other Mounika Tafoya M.D. part of left foot with unspecified severity 04/13/2019 L97.529 Non-pressure chronic ulcer of other Samariacarolina Cruzmirthaeliot Bacon, CORPORATE SECURITY OFFICER part of left foot with unspecified severity 04/13/2019 E11.621 Type 2 diabetes mellitus with foot Mounika Tafoya M.D. ulcer 04/13/2019 E11.40 Type 2 diabetes mellitus with Samaria Zeus Bacon, CORPORATE SECURITY OFFICER diabetic neuropathy, unspecified 04/13/2019 I10 Essential (primary) [...] subsequent encounter 04/05/2019 Z01.419 Encounter for gynecological HARPREET KimP-Cdstaci examination (general) (routine) without abnormal findings 04/05/2019 L97.529 Non-pressure chronic ulcer of other Abel Lucero M.D. part of left foot with unspecified severity 04/05/2019 Z12.31 Encounter for screening mammogram [facility] Kim-Landry for malignant neoplasm of breast 04/05/2019 E11.621 [...] Type 2 diabetes mellitus with foot Samaria Bacon, CORPORATE SECURITY OFFICER ulcer 02/16/2019 I48.0 Paroxysmal atrial fibrillation Dee Dee Ordonez, PA 02/16/2019 L97.529 Non-pressure chronic ulcer of other Samaria Bacon, CORPOR[employer] SECURITY OFFICER part of left foot with unspecified severity 02/16/2019 F41.9 Anxiety disorder, unspecified Dee Dee Ordonez, PA 02/16/2019 Z89.422 Acquired absence of other left Samaria Bacon, [employer]POR[employer] SECURITY OFFICER toe(s) 02/16/2019 F32.9 Major depressive disorder, single Dee Dee Ordonez, PA episode, unspecified 02/15/2019 M86.672 Other chronic osteomyelitis, left Dee Deefreedom Ordonez, PA ankle and foot 02/15/2019 E11.621 Type [...] Dee Deefreedom Ordonez, PA ankle and foot 02/14/2019 E11.621 Type [...] diabetes mellitus with foot DAT Justice ulcer 02/13/2019 F41.9 Anxiety disorder, unspecified DAT Justice 02/13/2019 F32.9 Major depressive disorder, single DAT [...] Other acute osteomyelitis, left Chris Morin, DO [facility] ankle and foot 02/12/2019 F41.9 Anxiety disorder, unspecified DAT Justice 02/12/2019 M86.672 Other chronic osteomyelitis, left Samaria Bacon NP ankle and foot 02/12/2019 F32.9 Major depressive disorder, single DAT Justice episode, unspecified 02/12/2019 M86.172 Other acute osteomyelitis, left Abhilash De La Torre, RPA-C ankle and foot 02/12/2019 I48.91 Unspecified atrial fibrillation DAT Justice 02/12/2019 E11.621 Type 2 diabetes mellitus with foot Samaria Bacon, JOHN ulcer 02/12/2019 G47.33 Obstructive sleep apnea (adult) [...] E11.40 Type 2 diabetes mellitus with Della DeBuck, M.D. diabetic neuropathy, unspecified 02/10/2019 M86.672 Other chronic osteomyelitis, left DAT Justice ankle and foot 02/10/2019 M86.172 Other acute osteomyelitis, left Della Mills M.D. ankle and foot 02/10/2019 R94.31 Abnormal electrocardiogram [ECG] Chris Morin DO FACC [EKG] 02/10/2019 E11.621 Type 2 [...] 2 diabetes mellitus with Chris Morin, DO [facility] unspecified complications Plan of Treatment Future Appointment(s):06/21/2019 10:00 am - Samaria Bacon NP at [facility]/04/2020 10:00 am - Cristhian Kiser MD at [facility]05/17/2019 - Abel Lucero M.D.L97.529 Non-pressure chronic ulcer of other part of left foot with unspecified severityFollow up:Follow up: 2 fahwnF45.40 Type 2 diabetes mellitus with diabetic neuropathy, unspecified Functional Status Description No Information Available Mental Status Description No Information Available Referrals Refer to Reason for Referral Status Appt Date Abel Bojorquez MD lady with dysvascular ray amputation left Sent foot. please eval [address] [place] [address] [phone] Lexii Forrester MD Referral to the [facility] for Healthy Sent Living to explore weight loss options [address] [place] [address] [phone] Naresh Quezada MD Left foot non healing wound, eval blood flow Closed and need for further intervention [address] [place] [address] [phone]
--- OUTSIDE RECORDS SUMMARY | 2019-06-08 19:55 | XMS REPORT | Continuity of Care Document ---
:1965 External Reference #:[id number] Author Name Abel Lucero M.D. (transmitted by agent of provider Nadia Maya) Address [address] [place] [address] Care Team Providers Name Role Phone Matthew Murphy MD - Internal Care Team Information Tape Calender Medicine Abel Bojorquez MD - Vascular Care Team Information Tape Calender [phone] Surgery Problems Active Problems Provider Date Type [...] Fredy Duarte M.D. Onset: 07/26/2016 Atherosclerosis of [place] arteries of left Naresh Quezada M.D. Onset: [...] 15gm Leonides Johnson, 04/25/2019 e areas of 691404-8.1Unit/GM-% concerns as Cream needed for rash Doxycycline [...] Range Note Laboratory test 04/09/2019 [facility] Point of 148 mg/dL High 70-[address] [place] [address] [phone] CBC Auto Diff 02/26/2019 [facility] White Blood 7.2 10^3/uL Normal 3.5-10.[address] [place] [address] [phone] Red Blood Count 3.97 10^6/uL Normal 3.70-4.87 [...] % 0.0 Comp Metabolic 02/26/2019 [facility] Sodium 142 mmol/L Normal 135-[address] [place] [address] [phone] Potassium 4.6 mmol/L Normal 3.5-5.0 Chloride 103 [...] >60 2 Laboratory test 02/26/2019 [facility] Vancomycin Trough 25.8 g /mL 3 finding [address] [place] [address] [phone] C Reactive Protein 5.45 mg/L Normal <8.01 1 Research Pharmacist: [id number] 2 Because ethnic data is not always [...] Infections Procedures Date Code Description Status 04/09/2019 97429 Debridement Skin,& sq Tissue Completed 04/09/2019 30271 Debridement Skin,& sq Tissue Completed 02/12/2019 52187 EKG, Interpretation Only Completed 02/12/2019 89140 Amputation Metatarsal W/Toe Completed 02/12/2019 15291 Amputation Metatarsal W/Toe Completed 02/10/2019 58850 EKG, Interpretation Only Completed 01/22/2019 34090 EKG Tracing & Interpretation Completed 03/25/2014 [id number] Diabetic Retinal Eye Exam Completed 03/25/2014 [id number] Mammogram Completed Medical Devices Description No Information Available Encounters Type Date Location Provider Dx Diagnosis Office Visit 05/07/2019 [facility] Samaria Zeus L97.529 Non- pressure 2:30p Infectious JOHN Bacon chronic ulcer Diseases oth prt left foot w unsp severity I70.245 [place] of left leg w ulceration oth prt foot E11.40 Type 2 diabetes mellitus with diabetic neuropathy, unsp E11.621 Type 2 diabetes mellitus with foot ulcer Office Visit 05/03/2019 [place] L97.529 Non-pressure 10:30a Orthopedics at [facility] Lucero chronic ulcer oth [place] prt left foot w unsp severity Office Visit 05/02/2019 [facility] Vascular Naresh GChace I70.245 [place] 7:30a Medicine Of Isiah Quezada M.D. arteries of left leg w ulceration oth prt foot Z68.43 Body mass index (BMI) 50.0-59.9, adult E66.01 Morbid (severe) obesity due to excess calories Office Visit 04/16/2019 12:28p [facility] Zeus E11.621 Type 2 For Infectious JOHN Bacon diabetes Diseases mellitus with foot ulcer L97.529 Non-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 E11.40 Type 2 diabetes mellitus with diabetic neuropathy, unsp Office Visit 04/13/2019 [facility] Samaria Schulz E11.621 Type 2 For Infectious Arleen COMMUNITY RECREATION COORDINATOR diabetes Diseases mellitus with foot ulcer L97.529 Non-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 E11.40 Type 2 diabetes mellitus with diabetic neuropathy, unsp Office Visit 04/13/2019 [facility] L97.529 Non-pressure 10:23a cedric Chamberlain M.D. chronic ulcer oth Hospitalists prt left foot w unsp severity E11.621 Type 2 diabetes mellitus with foot ulcer I10 Essential (primary) hypertension I48.0 Paroxysmal atrial fibrillation Office Visit 04/12/2019 [facility] L97.529 Non-pressure 10:23a cedric Chamberlain M.D. chronic ulcer oth Hospitalists prt left foot w unsp severity E11.621 Type 2 diabetes mellitus with foot ulcer I10 Essential (primary) hypertension E66.01 Morbid (severe) obesity due to excess calories I48.0 Paroxysmal atrial fibrillation Z68.43 Body mass index (BMI) 50.0-59.9, adult Office Visit 04[facility]11[facility] Disruption of 12:26p For Infectious Bacon, COMMUNITY RECREATION COORDINATOR external Diseases operation (surgical) wound, NEC, subs E11.621 Type 2 diabetes mellitus with foot ulcer L97.529 Non-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 E11.40 Type 2 diabetes mellitus with diabetic neuropathy, unsp Office Visit 04/11/2019 [facility] L97.529 Non-pressure 10:23a cedric Chamberlain M.D. chronic ulcer oth Hospitalists prt left foot w unsp severity E11.621 Type 2 diabetes mellitus with foot ulcer I10 Essential (primary) hypertension E66.01 Morbid (severe) obesity due to excess calories I48.0 Paroxysmal atrial fibrillation Z68.43 Body mass index (BMI) 50.0-59.9, adult Office Visit 04/10/2019 2:45p [facility] Naresh Yanez E11.621 Type 2 diabetes Medicine Of Isiah Quezada M.D. mellitus with foot ulcer L97.529 Non-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 Office [facility] E11.621 Type 2 cedric Chamberlain M.D. diabetes Hospitalists mellitus with foot ulcer L97.529 Non-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 I48.91 Unspecified atrial fibrillation Office Visit 04/10/2019 [facility] Samaria Anthonymirthaeliot T81.31xD Disruption of 12:22p For Infectious Arleen, COMMUNITY RECREATION COORDINATOR external Diseases operation (surgical) wound, NEC, subs E11.621 Type 2 diabetes mellitus with foot ulcer L97.529 Non-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 E11.40 Type 2 diabetes mellitus with diabetic neuropathy, unsp [facility] Wei, Z01.419 Encntr for display card writer [facility] NUCLEAR MEDICINE PHYSICIAN-Cde exam (general) (routine) w/o abn findings Z12.31 Encntr screen mammogram for malignant neoplasm of breast Office Visit 03/26/2019 [facility] Cesar Dickson L97.529 Non-pressure 1:40p For Infectious Apoorva Mabry chronic ulcer oth Diseases prt left foot w unsp severity E11.621 Type 2 diabetes mellitus with foot ulcer Office Visit 02/26/2019 [facility] Cesar Dickson M86.672 Other chronic 4:20p For Infectious Apoorva Mabry osteomyelitis, left Diseases ankle and foot E11.69 Type 2 diabetes mellitus with other specified complication Office Visit 02/20/2019 [facility] M86.9 Osteomyelitis, 8:50a cedric Chamberlain MD unspecified Hospitalists I38 Endocarditis, valve unspecified E11.40 Type 2 diabetes mellitus with diabetic neuropathy, unsp I48.0 Paroxysmal atrial fibrillation I10 Essential (primary) hypertension G47.33 Obstructive sleep apnea (adult) (pediatric) Office Visit 02/20/2019 [facility] Samaria Schulz E11.69 Type 2 diabetes 10:36a For Infectious Arleen COMMUNITY RECREATION COORDINATOR mellitus with Diseases other specified complication M86.672 Other chronic osteomyelitis, left ankle and foot Z89.422 Acquired absence of other left toe(s) Office 02/19/2019 [facility] M86.672 Other chronic Visit 8:49a cedric Chamberlain MD osteomyelitis, left Hospitalists ankle and foot E11.621 Type 2 diabetes mellitus with foot ulcer E11.40 Type 2 diabetes mellitus with diabetic neuropathy, unsp F41.9 Anxiety disorder, unspecified F32.9 Major depressive disorder, single episode, unspecified I48.0 Paroxysmal atrial fibrillation Office Visit 02/19/2019 [facility] E11.69 Type 2 diabetes 10:35a For Infectious Arleen, COMMUNITY RECREATION COORDINATOR mellitus with Diseases other specified complication M86.672 Other chronic osteomyelitis, left ankle and foot Z89.422 Acquired absence of other left toe(s) Office 02/18/2019 [facility] M86.672 Other chronic Visit 8:49a cedric Chamberlain PA osteomyelitis, Hospitalists left ankle and foot E11.621 Type 2 diabetes mellitus with foot ulcer E11.40 Type 2 diabetes mellitus with diabetic neuropathy, unsp I48.0 Paroxysmal atrial fibrillation F41.9 Anxiety disorder, unspecified F32.9 Major depressive disorder, single episode, unspecified Office 02/17/2019 [facility] M86.672 Other chronic Visit 8:48a cedric Chamberlain PA osteomyelitis, Hospitalists left ankle and foot E11.621 Type 2 diabetes mellitus with foot ulcer E11.40 Type 2 diabetes mellitus with diabetic neuropathy, unsp I48.0 Paroxysmal atrial fibrillation F41.9 Anxiety disorder, unspecified F32.9 Major depressive disorder, single episode, unspecified Office 02/16/2019 [facility] M86.672 Other chronic Visit 8:48a cedric Chamberlain PA osteomyelitis, Hospitalists left ankle and foot E11.621 Type 2 diabetes mellitus with foot ulcer E11.40 Type 2 diabetes mellitus with diabetic neuropathy, unsp I48.0 Paroxysmal atrial fibrillation F41.9 Anxiety disorder, unspecified F32.9 Major depressive disorder, single episode, unspecified Office Visit 02/16/2019 [facility] E11.69 Type 2 diabetes 10:33a For Infectious Bacon, COMMUNITY RECREATION COORDINATOR mellitus with Diseases other specified complication M86.672 Other chronic osteomyelitis, left ankle and foot E11.621 Type 2 diabetes mellitus with foot ulcer L97.529 Non-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 Z89.422 Acquired absence of other left toe(s) Office 02/15/2019 [facility] M86.672 Other chronic Visit 8:46a cedric Chamberlain PA osteomyelitis, Hospitalists left ankle and foot E11.621 Type 2 diabetes mellitus with foot ulcer E11.40 Type 2 diabetes mellitus with diabetic neuropathy, unsp I48.91 Unspecified atrial fibrillation F41.9 Anxiety disorder, unspecified F32.9 Major depressive disorder, single episode, unspecified Office 02/14/2019 [facility] Dee Dee M86.672 Other chronic Visit 8:42a cedric Chamberlain PA osteomyelitis, Hospitalists left ankle and foot E11.621 Type 2 diabetes mellitus with foot ulcer E11.40 Type 2 diabetes mellitus with diabetic neuropathy, unsp I48.91 Unspecified atrial fibrillation F41.9 Anxiety disorder, unspecified F32.9 Major depressive disorder, single episode, unspecified Office Visit 02/13/2019 [facility] Alex M86.672 Other chronic 8:42a cedric Chamberlain PA osteomyelitis, left Hospitalists ankle and foot E11.621 Type 2 diabetes mellitus with foot ulcer F41.9 Anxiety disorder, unspecified F32.9 Major depressive disorder, single episode, unspecified I48.91 Unspecified atrial fibrillation G47.33 Obstructive sleep apnea (adult) (pediatric) Office Visit 02/12/2019 [facility] Alex M86.672 Other chronic 8:41a cedric Chamberlain PA osteomyelitis, left Hospitalists ankle and foot E11.621 Type 2 diabetes mellitus with foot ulcer F41.9 Anxiety disorder, unspecified F32.9 Major depressive disorder, single episode, unspecified I48.91 Unspecified atrial fibrillation G47.33 Obstructive sleep apnea (adult) (pediatric) Office Visit 02/12/2019 [facility] E11.69 Type 2 diabetes 10:31a For Infectious Bacon, COMMUNITY RECREATION COORDINATOR mellitus with Diseases other specified complication M86.672 Other chronic osteomyelitis, left ankle and foot E11.621 Type 2 diabetes mellitus with foot ulcer L97.529 Non-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 Office Visit 02/11/2019 [facility] Alex M86.672 Other chronic 8:41a Assoccedric PA osteomyelitis, left Hospitalists ankle and foot E11.621 Type 2 diabetes mellitus with foot ulcer F41.9 Anxiety disorder, unspecified F32.9 Major depressive disorder, single episode, unspecified I48.91 Unspecified atrial fibrillation Office Visit 02/10/2019 [facility] Alex M86.672 Other chronic 8:40a Asscedric corona PA osteomyelitis, left Hospitalists ankle and foot E11.621 Type 2 diabetes mellitus with foot ulcer N18.9 Chronic kidney disease, unspecified I48.0 Paroxysmal atrial fibrillation I10 Essential (primary) hypertension G47.33 Obstructive sleep apnea (adult) (pediatric) Office Visit 02/10/2019 [place] Della E11.40 Type 2 diabetes 12:33p [facility] [place] mellitus with [place] diabetic neuropathy, unsp M86.172 Other acute osteomyelitis, left ankle and foot Office Visit 01/22/2019 2:20p [facility] Chris Santos I48.0 Paroxysmal atrial Of Corn Picker Morin, DO fibrillation FAC I63.9 Cerebral infarction, unspecified Z95.2 Presence of prosthetic heart valve E78.5 Hyperlipidemia, unspecified E11.8 Type 2 diabetes mellitus with unspecified complications Assessments Date Code Description Provider 05/07/2019 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 severity 05/07/2019 I70.245 Atherosclerosis of [place] arteries Samaria Bacon NP of left leg with ulceration of other part of foot 05/07/2019 E11.40 Type 2 diabetes mellitus with Samaria Bacon NP diabetic neuropathy, unspecified 05/07/2019 E11.621 Type 2 diabetes mellitus with foot Samaria Bacon NP ulcer 05/03/2019 L97.529 Non-pressure chronic ulcer of other Abel Lucero M.D. part of left foot with unspecified severity 05/02/2019 I70.245 Atherosclerosis of [place] arteries Naresh Quezada M.D. of left leg [...] foot 04/09/2019 M86.672 Other chronic osteomyelitis, left bAel Lucero M.D. ankle and foot 04/09/2019 T81.31xD [...] 02/18/2019 F41.9 Anxiety disorder, unspecified Dee Dee Ordonze, PA 02/18/2019 F32.9 Major depressive disorder, single Dee Deefreedom Ordonez, PA episode, unspecified 02/17/2019 M86.672 Other [...] 02/16/2019 M86.672 Other chronic osteomyelitis, left Dee Deefreedom Martínezham, PA ankle and foot 02/16/2019 E11.69 Type [...] L97.529 Non-pressure chronic ulcer of other Samaria Chapmanmorrosahra Arleen, COMMUNITY RECREATION COORDINATOR part of left foot with unspecified severity 02/16/2019 F41.9 Anxiety disorder, unspecified Dee Dee Ordonez, PA 02/16/2019 Z89.422 Acquired absence of other left Samaria Zeus Bacon, COMMUNITY RECREATION COORDINATOR toe(s) 02/16/2019 F32.9 Major depressive disorder, single Dee Dee Ordonez, PA episode, unspecified 02/15/2019 M86.672 Other chronic osteomyelitis, left Dee Dee Ordonez, PA ankle and foot 02/15/2019 E11.621 [...] 02/14/2019 M86.672 Other chronic osteomyelitis, left Dee Dee Ordonez, PA ankle and foot 02/14/2019 E11.621 [...] unspecified 02/13/2019 M86.672 Other chronic osteomyelitis, left Alex Dara, PA ankle and foot 02/13/2019 E11.621 Type 2 diabetes mellitus with foot Alex Diamond, PA ulcer 02/13/2019 F41.9 Anxiety disorder, unspecified Alex Dara, PA 02/13/2019 F32.9 Major depressive disorder, single Alex Dara, PA episode, unspecified 02/13/2019 I48.91 Unspecified atrial fibrillation Alex Diamond PA 02/13/2019 G47.33 Obstructive sleep apnea (adult) DAT [place] (pediatric) 02/12/2019 M86.672 Other chronic osteomyelitis, left DAT Justice ankle and foot 02/12/2019 E11.69 Type 2 diabetes mellitus with other Samaria Bacon, COMMUNITY RECREATION COORDINATOR specified complication 02/12/2019 E11.621 Type 2 diabetes mellitus with foot DAT Justice ulcer 02/12/2019 M86.172 Other acute osteomyelitis, left Chris Morin, DO [facility] ankle and foot 02/12/2019 F41.9 Anxiety disorder, unspecified DAT [place] 02/12/2019 M86.672 Other chronic osteomyelitis, left Samaria Pandyakita Bacon, COMMUNITY RECREATION COORDINATOR ankle and foot 02/12/2019 F32.9 Major depressive disorder, single DAT [place] episode, unspecified 02/12/2019 M86.172 Other acute osteomyelitis, left Abhilash De La Torre, RPA-C ankle and foot 02/12/2019 I48.91 Unspecified atrial fibrillation DAT Justice 02/12/2019 E11.621 Type 2 diabetes mellitus with foot Samaria Bacon, COMMUNITY RECREATION COORDINATOR ulcer 02/12/2019 G47.33 Obstructive sleep apnea (adult) DAT Justice (pediatric) 02/12/2019 M86.172 Other acute osteomyelitis, left Abel Lucero M.D. ankle and foot 02/12/2019 L97.529 Non-pressure chronic ulcer of other Samaria Bacon COMMUNITY RECREATION COORDINATOR part of left foot with unspecified severity [...] R94.31 Abnormal electrocardiogram [ECG] Chris Morin, DO FAC [EKG] 02/10/2019 E11.621 Type 2 diabetes mellitus with foot DAT Justice ulcer 02/10/2019 N18.9 Chronic kidney disease, unspecified DAT Justice 02/10/2019 I48.0 Paroxysmal atrial fibrillation DAT Justice 02/10/2019 I10 Essential (primary) hypertension DAT Justice 02/10/2019 G47.33 Obstructive sleep apnea (adult) DAT Justice (pediatric) 01/22/2019 I48.0 Paroxysmal atrial fibrillation Chris Morin DO FAC 01/22/2019 I63.9 Cerebral infarction, unspecified Chris Morin DO FACC 01/22/2019 Z95.2 Presence of prosthetic heart valve Chris Morin DO FACC 01/22/2019 E78.5 Hyperlipidemia, unspecified Chris Morin, DO FACC 01/22/2019 E11.8 Type 2 diabetes mellitus with Chris Morin, DO [facility] unspecified complications Plan of Treatment Future Appointment(s):06/21/2019 10:00 am - Samaria Bacon NP at [facility]/02/2020 11:15 am - Abel Lucero M.D. at [place] [facility] D[facility]zhoj4207/19/2019 10:00 am - Cristhian Kiser MD at [place]05/07/2019 - Samaria Bacon, NPL97.529 Non-pressure chronic ulcer of other part of left foot with unspecified severityComments:Please call the office if you develop redness or swelling in the left foot, or new wounds.Follow up:4-6 weeks (ok for telemedicine)I70.245 Atherosclerosis of [place] arteries of left leg with ulceration of other part of footE11.40 Type 2 diabetes mellitus with diabetic neuropathy, spnnmfojplgM80.621 Type 2 diabetes mellitus with foot ulcer Functional Status Description No Information Available Mental Status Description No Information Available Referrals Refer to Dr Reason for Referral Status Appt Abel Harris MD lady with dysvascular ray amputation left Sent foot. please eval [address] [place] [address] [phone] Lexii Forrester MD [facility] Sent Living to explore weight loss options [address] [place] [address] [phone] Naresh Quezada MD Left foot non healing wound, eval blood flow Closed and need for further intervention [address] [place] [address] [phone]
--- OUTSIDE RECORDS SUMMARY | 2019-06-08 19:55 | XMS REPORT ---
:1965 Author Organization [facility] Care Team Providers Name Role Phone Unavailable [...] Stefany kill 04-17 [place] deficit: pt 12:15: [id number] 00 Respiratory dyspnea Respirator Active Stefany present y 04-17 [place] 12:15: [id number] Endo/Vito anti-coagul Endo/Vito Active 2020-0 Stefany ation 3- [place] therapy 12:15: [id number] 00 Integument knowledge/s Integument Active 2020-0 Stefany kill 04-17 [place] deficit: pt 12:15: [id number] 00 Nutrition nutritional Nutrition Active 2020-0 Stefany restriction 04-17 [place] s 12:15: [id number] Safety risk for Safety Active 2020-0 Stefany hospitaliza 04-17 [place] tion 12:15: [id number] 00 Safety structural Safety Active 2020-0 Stefany barriers - [place] present 12:15: [id number] 00 Safety safety Safety Active 2020-0 Stefany hazards - [place] present 12:15: [id number] 00 Safety sanitation Safety Active 2020-0 Stefany hazards 04-17 [place] present 12:15: [id number] 00 Safety fall risk Safety Active 2020-0 Stefany factor 04-17 [place] present 12:15: [id number] 00 Medication knowledge/s Meds Active 2020-0 Stefany kill 04-17 [place] deficit: pt 12:15: [id number] 00 Diagnoses knowledge/s Diagnoses Active 2020-0 Stefany kill 04-17 [place] deficit: cg 12:15: [id number] 00 Musculoskel transfer Musculoske Active 2020-0 Stefany etal assistance letal 04-17 [place] required 12:15: [id number] 00 Musculoskel requires Musculoske Active 2020-0 Stefany etal human letal 04-17 [place] assist to 12:15: [id number] leave home 00 Nutrition knowledge/s Nutrition Active 2020-0 Della kill 3-06 Carrier RN deficit: pt 16:55: 00 Nutrition knowledge/s Nutrition Active 2020-0 Della kill 3-06 Carrier RN deficit: cg 16:55: 00 Integument skin Integument Active 2020-0 [place]ella integrity 3-11 Carrier RN risk 16:20: 00 Cardio edema Cardiovasc Active 2020-0 [place] ular 3- [place] 10:30: [id number] 00 Endo/Vito insulin Endo/Vito Active 2020-0 [place] admn 3- Surjit dependence 10:30: [id number] 00 Endo/Vito glucose Endo/Vito Active 2020-0 Cherrise testing 3-13 [place] dependence 10:30: [id number] 00 Elimination urinary Eliminatio Active Cherrise urgency n 04-26 [place] 10:30: [id number] 00 Elimination urinary Eliminatio Active Cherrise frequency n 04-26 [place] 10:30: [id number] 00 Neuro impaired Neuro/Emot Active Cherrise decision-ma ion 04-26 [place] brian 10:30: [id number] 00 Neuro memory Neuro/Emot Active Cherrise deficit ion 04-26 [place] needing 10:30: [id number] supervision 00 Safety can be left Safety Active [place]ella alone for 05-05 Carrier RN only short 16:30: periods 00 Cardio hypertensio Cardiovasc Active Cherrise n ular 05-08 [place] 09:30: [id number] 00 Neuro depressive Neuro/Emot Active Cherrise feelings ion 05-13 [place] present 10:30: [id number] 00 Medication oral med Meds Active Della [...]
--- OUTSIDE RECORDS SUMMARY | 2019-06-08 19:55 | XMS REPORT ---
:1965 Author Organization [facility] Care Team Providers Name Role Phone Unavailable [...] Stefany kill 04-17 [place] deficit: pt 12:15: [id number] Respiratory dyspnea Respirator Active Stefany present y 04-17 [place] 12:15: [id number] Endo/Vito anti-coagul Endo/Vito Active 2020-0 Stefany ation 3- [place] therapy 12:15: [id number] 00 Integument knowledge/s Integument Active 2020-0 Stefany kill 04-17 [place] deficit: pt 12:15: [id number] 00 Nutrition nutritional Nutrition Active 2020-0 Stefany restriction 04-17 [place] s 12:15: [id number] Safety risk for Safety Active 2020-0 Stefany hospitaliza 04-17 [place] tion 12:15: [id number] 00 Safety structural Safety Active 2020-0 Stefany barriers - [place] present 12:15: [id number] 00 Safety safety Safety Active 2020-0 Stefany hazards - [place] present 12:15: [id number] Safety sanitation Safety Active 2020-0 Stefany hazards 04-17 [place] present 12:15: [id number] 00 Safety fall risk Safety Active 2020-0 Stefany factor 04-17 [place] present 12:15: [id number] Medication knowledge/s Meds Active 2020-0 Stefany kill 04-17 [place] deficit: pt 12:15: [id number] 00 Diagnoses knowledge/s Diagnoses Active 2020-0 Stefany kill 04-17 [place] deficit: cg 12:15: [id number] 00 Musculoskel transfer Musculoske Active 2020-0 Stefany etal assistance letal 04-17 [place] required 12:15: [id number] Musculoskel requires Musculoske Active 2020-0 Stefany etal human letal 04-17 [place] assist to 12:15: [id number] leave home 00 Nutrition knowledge/s Nutrition Active 2020-0 Della kill 3-06 Carrier RN deficit: pt 16:55: 00 Nutrition knowledge/s Nutrition Active 2020-0 Della kill 3-06 Carrier RN deficit: cg 16:55: 00 Integument skin Integument Active 2020-0 Della integrity 3-11 Carrier RN risk 16:20: 00 Cardio edema Cardiovasc Active 2020-0 Cherrise ular 3- [place] 10:30: [id number] 00 Endo/Vito insulin Endo/Vito Active 2020-0 Cherrise admn 3- Surjit dependence 10:30: [id number] 00 Endo/Vito glucose Endo/Vito Active 2020-0 Cherrise testing 3-13 [place] dependence 10:30: [id number] 00 Elimination urinary Eliminatio Active Cherrise urgency n 04-26 [place] 10:30: [id number] 00 Elimination urinary Eliminatio Active Cherrise frequency n 04-26 [place] 10:30: [id number] 00 Neuro impaired Neuro/Emot Active Cherrise decision-ma ion 04-26 [place] brian 10:30: [id number] 00 Neuro memory Neuro/Emot Active Cherrise deficit ion 04-26 [place] needing 10:30: [id number] supervision 00 Safety can be left Safety Active Della alone for 05-05 Carrier RN only short 16:30: periods 00 Cardio hypertensio Cardiovasc Active Cherrise n ular 05-08 [place] 09:30: [id number] 00 Neuro depressive Neuro/Emot Active Cherrise feelings ion 05-13 [place] present 10:30: [id number] 00 Medication oral med Meds Active Della [...] Observation Time Observation Value Comments SYSTOLIC mm[Hg] 2019-06-01 18:11:26 122 mm[Hg] mm[Hg] Method: Sit DIASTOLIC mm[Hg] 2019-06-01 18:11:26 70 mm[Hg] mm[Hg] Method: Sit PULSE 2019-06-01 18:11:26 70 /min /min RESP RATE 2019-06-01 18:11:26 16 /min /min TEMP 2019-05-30 18:11:24 98.0 [degF] Procedures This patient has no known procedures. Results This patient has no known results.
--- OUTSIDE RECORDS SUMMARY | 2019-06-08 19:55 | XMS REPORT | Continuity of Care Document ---
:1965 External Reference #:[id number] Author Name Abel Lucero M.D. (transmitted by agent of provider Paradise Bacon) Address [address] [place] [address] Care Team Providers Name Role Phone Matthew Murphy MD - Internal Care Team Information [employer] [facility] Abel Bojorquez MD - Vascular Care Team Information [employer] [phone] Surgery Problems Active Problems Provider Date Type [...] Fredy Duarte M.D. Onset: 07/26/2016 Atherosclerosis of deering arteries of left Naresh Quezada M.D. Onset: [...] 15gm Leonides Johnson, 04/25/2019 e areas of 461289-7.1Unit/GM-% concerns as Cream needed for rash Doxycycline [...] Result H/L Range Note Laboratory test 04/09/2019 [facility] Point of 148 mg/dL High 70-[address] [place] [address] [phone] CBC Auto Diff 02/26/2019 [facility] White Blood 7.2 10^3/uL Normal 3.5-10.[address] [place] [address] [phone] Red Blood Count 3.97 10^6/uL Normal 3.70-4.87 [...] Blood Cells % 0.0 Comp Metabolic 02/26/2019 [facility] Sodium 142 mmol/L Normal 135-145 Panel [address] [place] [address] [phone] Potassium 4.6 mmol/L Normal 3.5-5.0 Chloride 103 [...] Egfr 60.9 >60 2 Laboratory test 02/26/2019 [facility] Vancomycin Trough 25.8 g /mL 3 finding [address] [place] [address] [phone] C Reactive Protein 5.45 mg/L Normal <8.01 1 Processing Manager: [id number] 2 Because ethnic data is not always [...] Infections Procedures Date Code Description Status 04/09/2019 73959 Debridement Skin,& sq Tissue Completed 04/09/2019 79221 Debridement Skin,& sq Tissue Completed 02/12/2019 99982 EKG, Interpretation Only Completed 02/12/2019 72561 Amputation Metatarsal W/Toe Completed 02/12/2019 30941 Amputation Metatarsal W/Toe Completed 02/10/2019 53159 EKG, Interpretation Only Completed 01/22/2019 97356 EKG Tracing & Interpretation Completed 03/25/2014 [id number] Diabetic Retinal Eye Exam Completed 03/25/2014 [id number] Mammogram Completed Medical Devices Description No Information Available Encounters Type Date Location Provider Dx Diagnosis Office Visit 05/07/2019 [facility] Samaria Schulz L97.529 Non- pressure 2:30p Infectious JOHN Bacon chronic ulcer Diseases oth prt left foot w unsp severity I70.245 Athscl [place] arteries of left leg w ulceration oth prt foot E11.40 Type 2 diabetes mellitus with diabetic neuropathy, unsp E11.621 Type 2 diabetes mellitus with foot ulcer Office Visit 05/03/2019 [facility] L97.529 Non-pressure 10:30a Orthopedics at [facility] Lucero chronic ulcer oth [place] prt left foot w unsp severity Office Visit 05/02/2019 [facility] Vascular Naresh GChace I70.245 Athscl [place] 7:30a Medicine Of Isiah Quezada M.D. arteries of left leg w ulceration oth prt foot Z68.43 Body mass index (BMI) 50.0-59.9, adult E66.01 Morbid (severe) obesity due to excess calories [facility] E11.621 Type 2 For Infectious JOHN Bacon diabetes Diseases mellitus with foot ulcer L97.529 Non-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 E11.40 Type 2 diabetes mellitus with diabetic neuropathy, unsp Office Visit 04/13/2019 12:27p [facility] Samaria Schulz E11.621 Type 2 For Infectious JOHN Bacon diabetes Diseases mellitus with foot ulcer L97.529 Non-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 E11.40 Type 2 diabetes mellitus with diabetic neuropathy, unsp Office Visit 04/13/2019 [facility] L97.529 Non-pressure 10:23a cedric Chamberlain M.D. chronic ulcer oth Hospitalists prt left foot w unsp severity E11.621 Type 2 diabetes mellitus with foot ulcer I10 Essential (primary) hypertension I48.0 Paroxysmal atrial fibrillation Office Visit 04/12/2019 [facility] L97.529 Non-pressure 10:23a cedric Chamberlain M.D. 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 diabetes Hospitalists mellitus with foot ulcer L97.529 Non-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 I48.91 Unspecified atrial fibrillation Office Visit 04/10/2019 [facility] Arimorrodenisekita T81.31xD Disruption of 12:22p For Infectious JOHN Bacon external Diseases operation (surgical) wound, NEC, subs E11.621 Type 2 diabetes mellitus with foot ulcer L97.529 Non-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 E11.40 Type 2 diabetes mellitus with diabetic neuropathy, unsp Office Visit 04/05/2019 1:00p [facility] Shona Wei, 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 (general) (routine) w/o abn findings Z12.31 Encntr screen mammogram for malignant neoplasm of breast Office Visit 03/26/2019 [facility] Cesar Dickson L97.529 Non-pressure 1:40p For Infectious Apoorva Mabry chronic ulcer oth Diseases prt left foot w unsp severity E11.621 Type 2 diabetes mellitus with foot ulcer Office Visit 02/26/2019 [facility] Cesar Dickson M86.672 Other chronic 4:20p For Infectious Apoorva Mabry osteomyelitis, left Diseases ankle and foot E11.69 Type 2 diabetes mellitus with other specified complication Office Visit 02/20/2019 [facility] M86.9 Osteomyelitis, 8:50a cedric Chamberlain MD unspecified Hospitalists I38 Endocarditis, valve unspecified E11.40 Type 2 diabetes mellitus with diabetic neuropathy, unsp I48.0 Paroxysmal atrial fibrillation I10 Essential (primary) hypertension G47.33 Obstructive sleep apnea (adult) (pediatric) Office Visit 02/20/2019 [facility] Samaria Zeus E11.69 Type 2 diabetes 10:36a For Infectious JOHN Bacon mellitus with Diseases other specified complication M86.672 Other chronic osteomyelitis, left ankle and foot Z89.422 Acquired absence of other left toe(s) Office 02/19/2019 [facility] M86.672 Other chronic Visit 8:49a cedric Chamberlain MD osteomyelitis, left Hospitalists ankle and foot E11.621 Type 2 diabetes mellitus with foot ulcer E11.40 Type 2 diabetes mellitus with diabetic neuropathy, unsp F41.9 Anxiety disorder, unspecified F32.9 Major depressive disorder, single episode, unspecified I48.0 Paroxysmal atrial fibrillation Office Visit 02/19/2019 [facility] E11.69 Type 2 diabetes 10:35a For Infectious Arleen, BOARD MILL SUPERVISOR mellitus with Diseases other specified complication M86.672 Other chronic osteomyelitis, left ankle and foot Z89.422 Acquired absence of other left toe(s) Office 02/18/2019 [facility] M86.672 Other chronic Visit 8:49a Asscedric corona PA osteomyelitis, Hospitalists left ankle and foot E11.621 Type 2 diabetes mellitus with foot ulcer E11.40 Type 2 diabetes mellitus with diabetic neuropathy, unsp I48.0 Paroxysmal atrial fibrillation F41.9 Anxiety disorder, unspecified F32.9 Major depressive disorder, single episode, unspecified Office 02/17/2019 [facility] M86.672 Other chronic Visit 8:48a cedric Chamberlain PA osteomyelitis, Hospitalists left ankle and foot E11.621 Type 2 diabetes mellitus with foot ulcer E11.40 Type 2 diabetes mellitus with diabetic neuropathy, unsp I48.0 Paroxysmal atrial fibrillation F41.9 Anxiety disorder, unspecified F32.9 Major depressive disorder, single episode, unspecified Office 02/16/2019 [facility] M86.672 Other chronic Visit 8:48a cedric Chamberlain PA osteomyelitis, Hospitalists left ankle and foot E11.621 Type 2 diabetes mellitus with foot ulcer E11.40 Type 2 diabetes mellitus with diabetic neuropathy, unsp I48.0 Paroxysmal atrial fibrillation F41.9 Anxiety disorder, unspecified F32.9 Major depressive disorder, single episode, unspecified Office Visit 02/16/2019 [facility] E11.69 Type 2 diabetes 10:33a For Infectious Bacon, BOARD MILL SUPERVISOR mellitus with Diseases other specified complication M86.672 Other chronic osteomyelitis, left ankle and foot E11.621 Type 2 diabetes mellitus with foot ulcer L97.529 Non-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 Z89.422 Acquired absence of other left toe(s) Office 02/15/2019 [facility] M86.672 Other chronic Visit 8:46a Assecdric corona [place] osteomyelitis, Hospitalists left ankle and foot E11.621 Type 2 diabetes mellitus with foot ulcer E11.40 Type 2 diabetes mellitus with diabetic neuropathy, unsp I48.91 Unspecified atrial fibrillation F41.9 Anxiety disorder, unspecified F32.9 Major depressive disorder, single episode, unspecified Office 02/14/2019 [facility] Dee Dee M86.672 Other chronic Visit 8:42a Asscedric corona [place] osteomyelitis, Hospitalists left ankle and foot E11.621 Type 2 diabetes mellitus with foot ulcer E11.40 Type 2 diabetes mellitus with diabetic neuropathy, unsp I48.91 Unspecified atrial fibrillation F41.9 Anxiety disorder, unspecified F32.9 Major depressive disorder, single episode, unspecified Office Visit 02/13/2019 [facility] Alex M86.672 Other chronic 8:42a cedric Chamberlain PA osteomyelitis, left Hospitalists ankle and foot E11.621 Type 2 diabetes mellitus with foot ulcer F41.9 Anxiety disorder, unspecified F32.9 Major depressive disorder, single episode, unspecified I48.91 Unspecified atrial fibrillation G47.33 Obstructive sleep apnea (adult) (pediatric) Office Visit 02/12/2019 [facility] Alex M86.672 Other chronic 8:41a cedric Chamberlain PA osteomyelitis, left Hospitalists ankle and foot E11.621 Type 2 diabetes mellitus with foot ulcer F41.9 Anxiety disorder, unspecified F32.9 Major depressive disorder, single episode, unspecified I48.91 Unspecified atrial fibrillation G47.33 Obstructive sleep apnea (adult) (pediatric) Office Visit 02/12/2019 [facility] E11.69 Type 2 diabetes 10:31a For Infectious Bacon, BOARD MILL SUPERVISOR mellitus with Diseases other specified complication M86.672 Other chronic osteomyelitis, left ankle and foot E11.621 Type 2 diabetes mellitus with foot ulcer L97.529 Non-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 Office Visit 02/11/2019 [facility] Alex M86.672 Other chronic 8:41a Assoccedric PA osteomyelitis, left Hospitalists ankle and foot E11.621 Type 2 diabetes mellitus with foot ulcer F41.9 Anxiety disorder, unspecified F32.9 Major depressive disorder, single episode, unspecified I48.91 Unspecified atrial fibrillation Office Visit 02/10/2019 [facility] M86.672 Other chronic 8:40a Assoc,pc [place] osteomyelitis, left Hospitalists ankle and foot E11.621 Type 2 diabetes mellitus with foot ulcer N18.9 Chronic kidney disease, unspecified I48.0 Paroxysmal atrial fibrillation I10 Essential (primary) hypertension G47.33 Obstructive sleep apnea (adult) (pediatric) Office Visit 02/10/2019 [facility] E11.40 Type 2 diabetes 12:33p [facility] [place] mellitus with [place] diabetic neuropathy, [facility] M86.172 Other acute osteomyelitis, left ankle and foot Office Visit 01/22/2019 2:20p [place] [facility] Chris Santos I48.0 Paroxysmal atrial Of [employer] Sales Consultant Morin, DO fibrillation FAC I63.9 Cerebral infarction, [...] with unspecified severity 05/07/2019 I70.245 Atherosclerosis of deering arteries Samaria Bacon NP of left leg with ulceration of other part of foot 05/07/2019 E11.40 Type 2 diabetes mellitus with Samaria Bacon NP diabetic neuropathy, unspecified 05/07/2019 E11.621 Type 2 diabetes mellitus with foot Samaria Bacon NP ulcer 05/03/2019 L97.529 Non-pressure chronic ulcer of other Abel Lucero M.D. part of left foot with unspecified severity 05/02/2019 I70.245 Atherosclerosis of deering arteries Naresh Quezada M.D. of left leg with ulceration of other part of foot 05/02/2019 Z68.43 Body mass index (BMI) 50.0-59.9, Naresh Quezada M.D. adult 05/02/2019 E66.01 Morbid (severe) obesity due to Naresh Quezada M.D. excess calories 04/24/2019 E11.621 Type 2 diabetes mellitus with foot Abel Lucero M.D. ulcer 04/16/2019 E11.621 Type 2 diabetes mellitus with foot Samaria Chapmanhenrry Bacon, JOHN ulcer 04/16/2019 L97.529 Non-pressure chronic ulcer of other Samaria Bacon, JOHN part of left foot with unspecified severity 04/16/2019 E11.40 Type 2 diabetes mellitus with Samariacarolina Bacon, JOHN diabetic neuropathy, unspecified 04/13/2019 E11.621 Type 2 diabetes mellitus with foot Samaria Zeus Bacon, BOARD MILL SUPERVISOR ulcer 04/13/2019 L97.529 Non-pressure chronic ulcer of other Mounika Tafoya M.D. part of left foot with unspecified severity 04/13/2019 L97.529 Non-pressure chronic ulcer of other Samaria Bacon, JOHN part of left foot with unspecified severity 04/13/2019 E11.621 Type 2 diabetes mellitus with foot Mounika Tafoya M.D. ulcer 04/13/2019 E11.40 Type 2 diabetes mellitus with Samariacarolina Bacon, JOHN diabetic neuropathy, unspecified 04/13/2019 I10 Essential (primary) [...] E11.621 Type 2 diabetes mellitus with foot aMry Alcala MD ulcer 02/19/2019 M86.672 Other chronic [...] ulcer 02/16/2019 M86.672 Other chronic osteomyelitis, left Samariacarolina Bacon NP ankle and foot 02/16/2019 E11.40 Type 2 diabetes mellitus with Dee Dee Ordonez, PA diabetic neuropathy, unspecified 02/16/2019 E11.621 Type 2 diabetes mellitus with foot Samaria Anthonydenisekita Bacon, BOARD MILL SUPERVISOR ulcer 02/16/2019 I48.0 Paroxysmal atrial fibrillation Dee Dee Ordonez, PA 02/16/2019 L97.529 Non-pressure chronic ulcer of other Samaria Zeus Bacon, BOARD M[employer] SUPERVISOR part of left foot with unspecified severity 02/16/2019 F41.9 Anxiety disorder, unspecified Dee Dee Ordonez, PA 02/16/2019 Z89.422 Acquired absence of other left Samaria Zeus Bacon NP toe(s) 02/16/2019 F32.9 Major depressive [...] Other acute osteomyelitis, left Chris Morin, DO [facility] ankle and foot 02/12/2019 F41.9 Anxiety disorder, [...] 2 diabetes mellitus with Chris Morin, DO FACC unspecified complications Plan of Treatment Future Appointment(s):06/21/2019 10:00 am - Samaria Bacon NP [facility]/04/2020 10:00 am - Cristhian Kiser MD at [facility]05/31/2019 - Abel Lucero M.D.E11.40 Type 2 diabetes mellitus with diabetic neuropathy, unspecifiedFollow up:[address] Johnson Functional Status Description No Information Available Mental Status Description No Information Available Referrals Refer to Dr Reason for Referral Status Appt Date Abel Bojorquez MD lady with dysvascular ray amputation left Sent foot. please eval [address] [facility] [address] [place], [place] [id number] [phone] Lexii Forrester MD Referral to the [facility] for [facility] Sent Living to explore weight loss options [address] [facility] [address] [place] [address] [phone] Naresh Quezada MD Left foot non healing wound, eval blood flow Closed and need for further intervention [address] [place] [address] [phone]
--- OUTSIDE RECORDS SUMMARY | 2019-06-08 19:55 | XMS REPORT ---
:1965 Author Organization [facility] Care Team Providers Name Role Phone [...] Stefany kill 04-17 [place] deficit: pt 12:15: [id number] Respiratory dyspnea Respirator Active Stefany present y 04-17 [place] 12:15: [id number] 00 Endo/Vito anti-coagul Endo/Vito Active 2020-0 Stefany ation 3- [place] therapy 12:15: [id number] 00 Integument knowledge/s Integument Active 2020-0 Stefany kill 04-17 [place] deficit: pt 12:15: [id number] 00 Nutrition nutritional Nutrition Active 2020-0 Stefany restriction 04-17 [place] s 12:15: [id number] Safety risk for Safety Active 2020-0 Stefany hospitaliza 04-17 [place] tion 12:15: [id number] 00 Safety structural Safety Active 2020-0 Stefany barriers - [place] present 12:15: [id number] 00 Safety safety Safety Active 2020-0 Stefany hazards - [place] present 12:15: [id number] 00 Safety sanitation Safety Active 2020-0 Stefany hazards 04-17 [place] present 12:15: [id number] Safety fall risk Safety Active 2020-0 Stefany factor 04-17 [place] present 12:15: [id number] 00 Medication knowledge/s Meds Active 2020-0 Stefany kill 04-17 [place] deficit: pt 12:15: [id number] 00 Diagnoses knowledge/s Diagnoses Active 2020-0 Stefany kill 04-17 [place] deficit: cg 12:15: [id number] 00 Musculoskel transfer Musculoske Active 2020-0 Stefany etal assistance letal 04-17 [place] required 12:15: [id number] 00 Musculoskel requires Musculoske Active 2020-0 Stefany etal human letal 04-17 [place] assist to 12:15: [id number] leave home 00 Nutrition knowledge/s Nutrition Active 2020-0 Della kill 3-06 Carrier RN deficit: pt 16:55: 00 Nutrition knowledge/s Nutrition Active 2020-0 Della kill 3-06 Carrier RN deficit: cg 16:55: 00 Integument skin Integument Active 2020-0 Della integrity 3-11 Carrier RN risk 16:20: 00 Cardio edema Cardiovasc Active 2020-0 Cherrise ular 3- [place] 10:30: [id number] 00 Endo/Vito insulin Endo/Vito Active 2020-0 Cherrise admn 3- Surjit dependence 10:30: [id number] 00 Endo/Vito glucose Endo/Vito Active 2020-0 Cherrise testing 3-13 [place] dependence 10:30: [id number] 00 Elimination urinary Eliminatio Active Cherrise urgency n 04-26 [place] 10:30: [id number] 00 Elimination urinary Eliminatio Active Cherrise frequency n 04-26 [place] 10:30: [id number] 00 Neuro impaired Neuro/Emot Active Cherrise decision-ma ion 04-26 [place] brian 10:30: [id number] 00 Neuro memory Neuro/Emot Active Cherrise deficit ion 04-26 [place] needing 10:30: [id number] supervision 00 Safety can be left Safety Active Della alone for 05-05 Carrier RN only short 16:30: periods 00 Cardio hypertensio Cardiovasc Active Cherrise n ular 05-08 [place] 09:30: [id number] 00 Neuro depressive Neuro/Emot Active Cherrise feelings ion 05-13 [place] present 10:30: [id number] 00 Allergies, Adverse Reactions, Alerts Allergy Allergy [...] cholecalcif Yes Nic Unknown Unknown yuridia yuridia 3- Abel PANCHAL (vitamin (vitamin G D3) 25 mcg D3) 25 mcg (1,000 (1,000 unit) unit) capsule capsule gabapentin gabapentin Yes Nic Unknown Unknown 300 mg 300 mg - Abel PANCHAL capsule capsule G Vital Signs Vital Name Observation Time Observation Value Comments SYSTOLIC mm[Hg] 2019-05-14 18:11:08 141 mm[Hg] mm[Hg] Method: Sit DIASTOLIC mm[Hg] 2019-05-14 18:11:08 82 mm[Hg] mm[Hg] Method: Sit PULSE 2019-05-14 18:11:08 72 /min /min RESP RATE 2019-05-14 18:11:08 16 /min /min TEMP 2019-05-14 18:11:08 97.5 [degF] Procedures This patient has no known procedures. Results This patient has no known results.
--- OUTSIDE RECORDS SUMMARY | 2019-06-08 19:55 | XMS REPORT ---
:1965 Author Organization [facility] Care Team Providers Name Role Phone Unavailable [...] Stefany kill 04-17 [place] deficit: pt 12:15: [id number] 00 Respiratory dyspnea Respirator Active Stefany present y 04-17 [place] 12:15: [id number] 00 Endo/Vito anti-coagul Endo/Vito Active 2020-0 Stefany ation 3- [place] therapy 12:15: [id number] 00 Integument knowledge/s Integument Active 2020-0 Stefany kill 04-17 [place] deficit: pt 12:15: [id number] 00 Nutrition nutritional Nutrition Active 2020-0 Stefany restriction 04-17 [place] s 12:15: [id number] Safety risk for Safety Active 2020-0 Stefany hospitaliza 04-17 [place] tion 12:15: [id number] 00 Safety structural Safety Active 2020-0 Stefany barriers - [place] present 12:15: [id number] 00 Safety safety Safety Active 2020-0 Stefany hazards - [place] present 12:15: [id number] 00 Safety sanitation Safety Active 2020-0 Stefany hazards 04-17 [place] present 12:15: [id number] 00 Safety fall risk Safety Active 2020-0 Stefany factor 04-17 [place] present 12:15: [id number] 00 Medication knowledge/s Meds Active 2020-0 Stefany kill 04-17 [place] deficit: pt 12:15: [id number] 00 Diagnoses knowledge/s Diagnoses Active 2020-0 Stefany kill 04-17 [place] deficit: cg 12:15: [id number] 00 Musculoskel transfer Musculoske Active 2020-0 Stefany etal assistance letal 04-17 [place] required 12:15: [id number] 00 Musculoskel requires Musculoske Active 2020-0 Stefany etal human letal 04-17 [place] assist to 12:15: [id number] leave home 00 Nutrition knowledge/s Nutrition Active 2020-0 Della kill 3-06 [place] RN deficit: pt 16:55: 00 Nutrition knowledge/s Nutrition Active 2020-0 Della kill 3-06 Carrier RN deficit: cg 16:55: 00 Integument skin Integument Active 2020-0 Della integrity 3-11 Carrier RN risk 16:20: 00 Cardio edema Cardiovasc Active 2020-0 Cherrise ular 3- [place] 10:30: [id number] 00 Endo/Vito insulin Endo/Vito Active 2020-0 Cherrise admn 3- Surjit dependence 10:30: [id number] 00 Endo/Vito glucose Endo/Vito Active 2020-0 Cherrise testing 3-13 [place] dependence 10:30: [id number] 00 Elimination urinary Eliminatio Active Cherrise urgency n 04-26 [place] 10:30: [id number] 00 Elimination urinary Eliminatio Active Cherrise frequency n 04-26 [place] 10:30: [id number] 00 Neuro impaired Neuro/Emot Active Cherrise decision-ma ion 04-26 [place] brian 10:30: [id number] 00 Neuro memory Neuro/Emot Active Cherrise deficit ion 04-26 [place] needing 10:30: [id number] supervision 00 Safety can be left Safety Active Della alone for 05-05 Carrier RN only short 16:30: periods 00 Cardio hypertensio Cardiovasc Active Cherrise n ular 05-08 [place] 09:30: [id number] 00 Neuro depressive Neuro/Emot Active Cherrise feelings ion 05-13 [place] present 10:30: [id number] 00 Medication oral med Meds Active Della [...] Observation Time Observation Value Comments SYSTOLIC mm[Hg] 2019-05-25 18:11:19 132 mm[Hg] mm[Hg] Method: Sit DIASTOLIC mm[Hg] 2019-05-25 18:11:19 86 mm[Hg] mm[Hg] Method: Sit PULSE 2019-05-25 18:11:19 73 /min /min RESP RATE 2019-05-25 18:11:19 16 /min /min TEMP 2019-05-25 18:11:19 97.9 [degF] Procedures This patient has no known procedures. Results This patient has no known results.
--- OUTSIDE RECORDS SUMMARY | 2019-06-08 19:55 | XMS REPORT ---
[...] Stefany kill 04-17 [place] deficit: pt 12:15: [id number] 00 Respiratory dyspnea Respirator Active Stefany present y 04-17 [place] 12:15: [id number] 00 Endo/Vito anti-coagul Endo/Vito Active 2020-0 Stefany ation 3- [place] therapy 12:15: [id number] 00 Integument knowledge/s Integument Active 2020-0 Stefany kill 04-17 [place] deficit: pt 12:15: [id number] 00 Nutrition nutritional Nutrition Active 2020-0 Stefany restriction 04-17 [place] s 12:15: [id number] 00 Safety risk for Safety Active 2020-0 Stefany hospitaliza 04-17 [place] tion 12:15: [id number] 00 Safety structural Safety Active 2020-0 Stefany barriers - [place] present 12:15: [id number] 00 Safety safety Safety Active 2020-0 Stefany hazards - [place] present 12:15: [id number] 00 Safety sanitation Safety Active 2020-0 Stefany hazards 04-17 [place] present 12:15: [id number] 00 Safety fall risk Safety Active 2020-0 Stefany factor 04-17 [place] present 12:15: [id number] 00 Medication knowledge/s Meds Active 2020-0 Stefany kill 04-17 [place] deficit: pt 12:15: [id number] 00 Diagnoses knowledge/s Diagnoses Active 2020-0 Stefany kill 04-17 [place] deficit: cg 12:15: [id number] 00 Musculoskel transfer Musculoske Active 2020-0 Stefany etal assistance letal 04-17 [place] required 12:15: [id number] 00 Musculoskel requires Musculoske Active 2020-0 Stefany etal human letal 04-17 [place] assist to 12:15: [id number] leave home 00 Nutrition knowledge/s Nutrition Active 2020-0 Della kill 3-06 Carrier RN deficit: pt 16:55: 00 Nutrition knowledge/s Nutrition Active 2020-0 Della kill 3-06 [place]rier RN deficit: cg 16:55: 00 Integument skin Integument Active 2020-0 Della integrity 3-11 Carrier RN risk 16:20: 00 Cardio edema Cardiovasc Active 2020-0 Cherrise ular 3- [place] 10:30: [id number] 00 Endo/Vito insulin Endo/Vito Active 2020-0 Cherrise admn 3- Surjit dependence 10:30: [id number] 00 Endo/Vito glucose Endo/Vito Active 2020-0 Cherrise testing 3-13 [place] dependence 10:30: [id number] 00 Elimination urinary Eliminatio Active Cherrise urgency n 04-26 [place] 10:30: [id number] 00 Elimination urinary Eliminatio Active Cherrise frequency n 04-26 [place] 10:30: [id number] 00 Neuro impaired Neuro/Emot Active Cherrise decision-ma ion 04-26 [place] brian 10:30: [id number] 00 Neuro memory Neuro/Emot Active Cherrise deficit ion 04-26 [place] needing 10:30: [id number] supervision 00 Safety can be left Safety Active Della alone for 05-05 Carrier RN only short 16:30: periods 00 Cardio hypertensio Cardiovasc Active Cherrise n ular 05-08 [place] 09:30: [id number] 00 Neuro depressive Neuro/Emot Active Cherrise feelings ion 05-13 [place] present 10:30: [id number] 00 Medication oral med Meds Active Della [...]
--- OUTSIDE RECORDS SUMMARY | 2019-06-08 19:55 | XMS REPORT | Continuity of Care Document ---
:1965 External Reference #:[id number] Author Name Abel Lucero M.D. (transmitted by agent of provider Nadia Maya) Address [address] [facility] [address] [facility] [place] [address] Care Team Providers Name Role Phone Matthew Murphy MD - Internal Care Team Information Logistical Engineer [phone] Medicine Abel Bojorquez MD - Vascular Care Team Information Logistical Engineer [phone] Surgery Problems Active Problems Provider Date Type [...] Fredy Duarte M.D. Onset: 07/26/2016 Atherosclerosis of [place] arteries of left Naresh Quezada M.D. Onset: [...] 15gm Leonides Johnson, 04/25/2019 e areas of 295031-1.1Unit/GM-% concerns as Cream needed for rash Doxycycline [...] Result H/L Range Note Laboratory test 04/09/2019 [facility] Point of 148 mg/dL High 70-[address] [place] [address] [phone] CBC Auto Diff 02/26/2019 [facility] White Blood 7.2 10^3/uL Normal 3.5-10.[address] [place] [address] [phone] Red Blood Count 3.97 10^6/uL Normal 3.70-4.87 [...] Blood Cells % 0.0 Comp Metabolic 02/26/2019 [facility] Sodium 142 mmol/L Normal 135-145 Panel [address] [place] [address] [phone] Potassium 4.6 mmol/L Normal 3.5-5.0 Chloride 103 [...] Egfr 60.9 >60 2 Laboratory test 02/26/2019 [facility] Vancomycin Trough 25.8 g /mL 3 finding [address] [place] [address] [phone] C Reactive Protein 5.45 mg/L Normal <8.01 1 Outfitter Cabin: [id number] 2 Because ethnic data is not always [...] Infections Procedures Date Code Description Status 04/09/2019 29842 Debridement Skin,& sq Tissue Completed 04/09/2019 77869 Debridement Skin,& sq Tissue Completed 02/12/2019 84156 EKG, Interpretation Only Completed 02/12/2019 38885 Amputation Metatarsal W/Toe Completed 02/12/2019 66017 Amputation Metatarsal W/Toe Completed 02/10/2019 95020 EKG, Interpretation Only Completed 01/22/2019 05924 EKG Tracing & Interpretation Completed 03/25/2014 [id number] Diabetic Retinal Eye Exam Completed 03/25/2014 [id number] Mammogram Completed Medical Devices Description No Information Available Encounters Type Date Location Provider Dx Diagnosis Office Visit 05/17/2019 [facility] Abel Lucero L97.529 Non- pressure 11:15a at [facility] chronic ulcer oth prt left foot w unsp severity E11.40 Type 2 diabetes mellitus with diabetic neuropathy, unsp Office Visit 05/07/2019 [facility] Samaria Schulz L97.529 Non- pressure 2:30p For Infectious JOHN Bacon chronic ulcer oth Diseases prt left foot w unsp severity I70.245 [facility] [place] arteries of left leg w ulceration oth prt foot E11.40 Type 2 diabetes mellitus with diabetic neuropathy, unsp E11.621 Type 2 diabetes mellitus with foot ulcer Office Visit 05/03/2019 Ankur Roman L97.529 Non-pressure 10:30a [facility]oped[facility] severity Office Visit 05/02/2019 [facility] Yanez I70.245 [facility] [place] 7:30a Medicine Of Isiah Quezada M.D. arteries of left leg w ulceration oth prt foot Z68.43 Body mass index (BMI) 50.0-59.9, adult E66.01 Morbid (severe) obesity due to excess calories Office Visit 04/16/2019 12:28p [facility] Samaria Schulz E11.621 Type 2 For Infectious Arleen FOOD BAGGING MACHINE OPERATOR diabetes Diseases mellitus with foot ulcer L97.529 Non-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 E11.40 Type 2 diabetes mellitus with diabetic neuropathy, unsp Office Visit 04/13/2019 12:27p [facility] E11.621 Type 2 For Infectious Bacon, FOOD BAGGING MACHINE OPERATOR diabetes Diseases mellitus with foot ulcer L97.529 Non-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 E11.40 Type 2 diabetes mellitus with diabetic neuropathy, unsp Office Visit 04/13/2019 [facility] L97.529 Non-pressure 10:23a cedric Chamberlain M.D. chronic ulcer oth Hospitalists prt left foot w unsp severity E11.621 Type 2 diabetes mellitus with foot ulcer I10 Essential (primary) hypertension I48.0 Paroxysmal atrial fibrillation Office Visit 04/12/2019 [facility] L97.529 Non-pressure 10:23a cedric Chamberlain M.D. chronic ulcer oth Hospitalists prt left foot w unsp severity E11.621 Type 2 diabetes mellitus with foot ulcer I10 Essential (primary) hypertension E66.01 Morbid (severe) obesity due to excess calories I48.0 Paroxysmal atrial fibrillation Z68.43 Body mass index (BMI) 50.0-59.9, adult Office Visit 04/11/2019 [facility] L97.529 Non-pressure 10:23a cedric Chamberlain M.D. chronic ulcer oth Hospitalists prt left foot w unsp severity E11.621 Type 2 diabetes mellitus with foot ulcer I10 Essential (primary) hypertension E66.01 Morbid (severe) obesity due to excess calories I48.0 Paroxysmal atrial fibrillation Z68.43 Body mass index (BMI) 50.0-59.9, adult Office Visit 04/11/2019 [facility] T81.31xD Disruption of 12:26p For Infectious Bacon, FOOD BAGGING MACHINE OPERATOR external Diseases operation (surgical) wound, NEC, subs E11.621 Type 2 diabetes mellitus with foot ulcer L97.529 Non-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 E11.40 Type 2 diabetes mellitus with diabetic neuropathy, unsp Office Visit 04/10/2019 [facility] T81.31xD Disruption of 12:22p For Infectious Bacon, FOOD BAGGING MACHINE OPERATOR external Diseases operation (surgical) wound, NEC, subs E11.621 Type 2 diabetes mellitus with foot ulcer L97.529 Non-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 E11.40 Type 2 diabetes mellitus with diabetic neuropathy, unsp Office Visit 04/10/2019 10:22a [facility] Mounika Tafoya, E11.621 Type 2 Asscedric corona M.D. 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-Cde exam (general) (routine) w/o abn findings Z12.31 Encntr screen mammogram for malignant neoplasm of breast Office Visit 03/26/2019 [facility] Cesar Dickson L97.529 Non-pressure 1:40p For Infectious Apoorva Mabry chronic ulcer oth Diseases prt left foot w unsp severity E11.621 Type 2 diabetes mellitus with foot ulcer Office Visit 02/26/2019 [facility] Cesar Dickson M86.672 Other chronic 4:20p For Infectious Apoorva Mabry osteomyelitis, left Diseases ankle and foot E11.69 Type 2 diabetes mellitus with other specified complication Office Visit 02/20/2019 [facility] M86.9 Osteomyelitis, 8:50a Assoc,cedric Alcala MD unspecified Hospitalists I38 Endocarditis, valve unspecified E11.40 Type 2 diabetes mellitus with diabetic neuropathy, unsp I48.0 Paroxysmal atrial fibrillation I10 Essential (primary) hypertension G47.33 Obstructive sleep apnea (adult) (pediatric) Office Visit 02/20/2019 [facility] Samaria Schulz E11.69 Type 2 diabetes 10:36a For Infectious Bacon, FOOD BAGGING MACHINE OPERATOR mellitus with Diseases other specified complication M86.672 Other chronic osteomyelitis, left ankle and foot Z89.422 Acquired absence of other left toe(s) Office 02/19/2019 [facility] M86.672 Other chronic Visit 8:49a ,cedric Alcala MD osteomyelitis, left Hospitalists ankle and foot E11.621 Type 2 diabetes mellitus with foot ulcer E11.40 Type 2 diabetes mellitus with diabetic neuropathy, unsp F41.9 Anxiety disorder, unspecified F32.9 Major depressive disorder, single episode, unspecified I48.0 Paroxysmal atrial fibrillation Office Visit 02/19/2019 [facility] E11.69 Type 2 diabetes 10:35a For Infectious Bacon, FOOD BAGGING MACHINE OPERATOR mellitus with Diseases other specified complication M86.672 Other chronic osteomyelitis, left ankle and foot Z89.422 Acquired absence of other left toe(s) Office 02/18/2019 [facility] M86.672 Other chronic Visit 8:49a cedric Chamberlain PA osteomyelitis, Hospitalists left ankle and foot E11.621 Type 2 diabetes mellitus with foot ulcer E11.40 Type 2 diabetes mellitus with diabetic neuropathy, unsp I48.0 Paroxysmal atrial fibrillation F41.9 Anxiety disorder, unspecified F32.9 Major depressive disorder, single episode, unspecified Office 02/17/2019 [facility] M86.672 Other chronic Visit 8:48a cedric Chamberlain PA osteomyelitis, Hospitalists left ankle and foot E11.621 Type 2 diabetes mellitus with foot ulcer E11.40 Type 2 diabetes mellitus with diabetic neuropathy, unsp I48.0 Paroxysmal atrial fibrillation F41.9 Anxiety disorder, unspecified F32.9 Major depressive disorder, single episode, unspecified Office 02/16/2019 [facility] M86.672 Other chronic Visit 8:48a cedric Chamberlain PA osteomyelitis, Hospitalists left ankle and foot E11.621 Type 2 diabetes mellitus with foot ulcer E11.40 Type 2 diabetes mellitus with diabetic neuropathy, unsp I48.0 Paroxysmal atrial fibrillation F41.9 Anxiety disorder, unspecified F32.9 Major depressive disorder, single episode, unspecified Office Visit 02/16/2019 [facility] E11.69 Type 2 diabetes 10:33a For Infectious Bacon, FOOD BAGGING MACHINE OPERATOR mellitus with Diseases other specified complication M86.672 Other chronic osteomyelitis, left ankle and foot E11.621 Type 2 diabetes mellitus with foot ulcer L97.529 Non-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 Z89.422 Acquired absence of other left toe(s) Office 02/15/2019 [facility] M86.672 Other chronic Visit 8:46a cedric Chamberlain PA osteomyelitis, Hospitalists left ankle and foot E11.621 Type 2 diabetes mellitus with foot ulcer E11.40 Type 2 diabetes mellitus with diabetic neuropathy, unsp I48.91 Unspecified atrial fibrillation F41.9 Anxiety disorder, unspecified F32.9 Major depressive disorder, single episode, unspecified [facility] M[facility] Other chronic Visit 8:42a cedric Chamberlain PA osteomyelitis, Hospitalists left ankle and foot E11.621 Type 2 diabetes mellitus with foot ulcer E11.40 Type 2 diabetes mellitus with diabetic neuropathy, unsp I48.91 Unspecified atrial fibrillation F41.9 Anxiety disorder, unspecified F32.9 Major depressive disorder, single episode, unspecified Office Visit 02/13/2019 [facility] M86.672 Other chronic 8:42a cedric Chamberlain PA osteomyelitis, left Hospitalists ankle and foot E11.621 Type 2 diabetes mellitus with foot ulcer F41.9 Anxiety disorder, unspecified F32.9 Major depressive disorder, single episode, unspecified I48.91 Unspecified atrial fibrillation G47.33 Obstructive sleep apnea (adult) (pediatric) Office Visit 02/12/2019 [facility] M86.672 Other chronic 8:41a cedric Chamberlain PA osteomyelitis, left Hospitalists ankle and foot E11.621 Type 2 diabetes mellitus with foot ulcer F41.9 Anxiety disorder, unspecified F32.9 Major depressive disorder, single episode, unspecified I48.91 Unspecified atrial fibrillation G47.33 Obstructive sleep apnea (adult) (pediatric) Office Visit 02/12/2019 [facility] E11.69 Type 2 diabetes 10:31a For Infectious Bacon, FOOD BAGGING MACHINE OPERATOR mellitus with Diseases other specified complication M86.672 Other chronic osteomyelitis, left ankle and foot E11.621 Type 2 diabetes mellitus with foot ulcer L97.529 Non-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 Office Visit 02/11/2019 [facility] M86.672 Other chronic 8:41a cedric Chamberlain, PA osteomyelitis, left Hospitalists ankle and foot E11.621 Type 2 diabetes mellitus with foot ulcer F41.9 Anxiety disorder, unspecified F32.9 Major depressive disorder, single episode, unspecified I48.91 Unspecified atrial fibrillation Office Visit 02/10/2019 [facility] M86.672 Other chronic 8:40a Assoc,DAT Corona osteomyelitis, left Hospitalists ankle and foot E11.621 Type 2 diabetes mellitus with foot ulcer N18.9 Chronic kidney disease, unspecified I48.0 Paroxysmal atrial fibrillation I10 Essential (primary) hypertension G47.33 Obstructive sleep apnea (adult) (pediatric) Office Visit 02/10/2019 Ank[facility] Hull E11.40 Type 2 diabetes 12:33p [facility] [place] mellitus with [facility] diabetic neuropathy, uns M86.172 Other acute osteomyelitis, left ankle and foot Office Visit 01/22/2019 2:20p [facility] Chris Santos I48.0 Paroxysmal atrial Of Hvac Technician Morin, DO fibrillation FAC I63.9 Cerebral infarction, [...] with unspecified severity 05/07/2019 I70.245 Atherosclerosis of [place] arteries Samaria Bacon NP of left leg with ulceration of other part of foot 05/07/2019 E11.40 Type 2 diabetes mellitus with Samaria Bacon NP diabetic neuropathy, unspecified 05/07/2019 E11.621 Type 2 diabetes mellitus with foot Samaria Bacon NP ulcer 05/03/2019 L97.529 Non-pressure chronic ulcer of other Abel Nic, M.D. part of left foot with unspecified severity 05/02/2019 I70.245 Atherosclerosis of [place] arteries Naresh Quezada M.D. of left leg [...] E11.40 Type 2 diabetes mellitus with Samaria Bcaon NP diabetic neuropathy, unspecified 04/11/2019 E66.01 Morbid [...] 04/10/2019 E11.40 Type 2 diabetes mellitus with Samariacarolina Bacon NP diabetic neuropathy, unspecified 04/10/2019 L97.529 [...] E11.621 Type 2 diabetes mellitus with foot bAel Lucero M.D. ulcer 03/26/2019 L97.529 Non-pressure chronic [...] Dee Deefreedom [place], PA ankle and foot 02/18/2019 E11.621 Type [...] 2 diabetes mellitus with other Samaria Bacon, FOOD BAGGING MACHINE OPERATOR specified complication 02/16/2019 E11.621 Type 2 diabetes mellitus with foot Dee Dee Ordonez, PA ulcer 02/16/2019 M86.672 Other chronic osteomyelitis, left Samaria Bacon, FOOD BAGGING MACHINE OPERATOR ankle and foot 02/16/2019 E11.40 Type 2 diabetes mellitus with Dee Dee Ordonez, PA diabetic neuropathy, unspecified 02/16/2019 E11.621 Type 2 diabetes mellitus with foot Samaria Schulz Arleen, FOOD BAGGING MACHINE OPERATOR ulcer 02/16/2019 I48.0 Paroxysmal atrial fibrillation Dee Dee Ordonez, PA 02/16/2019 L97.529 Non-pressure chronic ulcer of other Samaria Schulz Bacon, JOHN part of left foot with unspecified severity 02/16/2019 F41.9 Anxiety disorder, unspecified Dee Dee Ordonez, PA 02/16/2019 Z89.422 Acquired absence of other left Samaria Pandyakita Bacon NP toe(s) 02/16/2019 F32.9 Major depressive [...] PA 02/14/2019 F32.9 Major depressive disorder, single DAT [...] Other acute osteomyelitis, left Chris Morin, DO [facility] ankle and foot 02/12/2019 F41.9 Anxiety disorder, [...] foot 02/10/2019 R94.31 Abnormal electrocardiogram [ECG] Chris Mroin DO FAC [EKG] 02/10/2019 E11.621 Type 2 [...] 10:00 am - Leonides Johnson MD at [facility] at [facility]/21/2019 10:00 am - Samaria Bacon NP at [facility] Gbqdgsjz19/04/2020 10:00 am - Cristhian Kiser MD at [facility]05/31/2019 - Abel Nic, M.D.E11.40 Type 2 diabetes mellitus with diabetic neuropathy, unspecifiedFollow up:[address] 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 please eval [address] [place] [address] [phone] Lexii Forrester MD Referral to the [facility] for [facility] Sent Living to explore weight loss options [address] [place] [address] [phone] Naresh Quezada MD Left foot non healing wound, eval blood flow Closed and need for further intervention [address] [facility] [address] [place] [address] [phone]
--- OUTSIDE RECORDS SUMMARY | 2019-06-08 19:55 | XMS REPORT | Continuity of Care Document ---
:1965 External Reference #:[id number] Author Name OSMAR Lopez (transmitted by agent of provider Shefali Recio) Address [address] [facility] [place] [address] Care Team Providers Name Role Phone Matthew Murphy MD - Internal Care Team Information Resin Maker Medicine Abel Bojorquez MD - Vascular Care Team Information Resin Maker Surgery Problems Active Problems Provider Date Type [...] Fredy Duarte M.D. Onset: 07/26/2016 Atherosclerosis of [place] arteries of left Naresh Quezada M.D. Onset: [...] 15gm Leonides Johnson, 04/25/2019 e areas of 493226-8.1Unit/GM-% concerns as Cream needed for rash Doxycycline [...] Result H/L Range Note Laboratory test 04/09/2019 [facility] Point of 148 mg/dL High 70-[address] [place] [address] [phone] CBC Auto Diff 02/26/2019 [facility] White Blood 7.2 10^3/uL Normal 3.5-10.[address] [place] [address] [phone] Red Blood Count 3.97 10^6/uL Normal 3.70-4.87 [...] Blood Cells % 0.0 Comp Metabolic 02/26/2019 [facility] Sodium 142 mmol/L Normal 135-[address] [place] [address] [phone] Potassium 4.6 mmol/L Normal 3.5-5.0 Chloride 103 [...] Egfr 60.9 >60 2 Laboratory test 02/26/2019 [facility] Vancomycin Trough 25.8 g /mL 3 finding [address] [place] [address] [phone] C Reactive Protein 5.45 mg/L Normal <8.01 1 Sampler Radioactive Waste: [id number] 2 Because ethnic data is not always [...] Infections Procedures Date Code Description Status 04/09/2019 90497 Debridement Skin,& sq Tissue Completed 04/09/2019 42424 Debridement Skin,& sq Tissue Completed 02/12/2019 78039 EKG, Interpretation Only Completed 02/12/2019 46404 Amputation Metatarsal W/Toe Completed 02/12/2019 85099 Amputation Metatarsal W/Toe Completed 02/10/2019 84563 EKG, Interpretation Only Completed 01/22/2019 49365 EKG Tracing & Interpretation Completed 03/25/2014 [id number] Diabetic Retinal Eye Exam Completed 03/25/2014 [id number] Mammogram Completed Medical Devices Description No Information Available Encounters Type Date Location Provider Dx Diagnosis Office Visit 05/07/2019 [facility] Samaria Schulz L97.529 Non- pressure 2:30p Infectious JOHN Bacon chronic ulcer Diseases oth prt left foot w unsp severity I70.245 [place] [place] arteries of left leg w ulceration oth prt foot E11.40 Type 2 diabetes mellitus with diabetic neuropathy, unsp E11.621 Type 2 diabetes mellitus with foot ulcer Office Visit 05/03/2019 [facility] L97.529 Non-pressure 10:30a [facility] chronic ulcer oth [place] prt left foot w unsp severity Office Visit 05/02/2019 [facility] Naresh Yanez I70.245 [place]cl [place] 7:30a [facility] Isiah Quezada M.D. arteries of left leg w ulceration oth prt foot Z68.43 Body mass index (BMI) 50.0-59.9, adult E66.01 Morbid (severe) obesity due to excess calories Office Visit 04/16/2019 12:28p [facility] Samaria Schulz E11.621 Type 2 For Infectious JOHN Bacon diabetes Diseases mellitus with foot ulcer L97.529 Non-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 E11.40 Type 2 diabetes mellitus with diabetic neuropathy, unsp Office Visit 04/13/2019 12:27p [facility] Samaria Schulz E11.621 Type 2 For Infectious JOHN Bacon diabetes Diseases mellitus with foot ulcer L97.529 Non-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 E11.40 Type 2 diabetes mellitus with diabetic neuropathy, unsp Office Visit 04/13/2019 [facility] L97.529 Non-pressure 10:23a cedric Chamberlain M.D. chronic ulcer oth [facility] prt left foot w unsp severity E11.621 Type 2 diabetes mellitus with foot ulcer I10 Essential (primary) hypertension I48.0 Paroxysmal atrial fibrillation Office Visit 04/12/2019 [facility] L97.529 Non-pressure 10:23a cedric Chamberlain M.D. chronic ulcer oth [facility] prt left foot w unsp severity E11.621 Type 2 diabetes mellitus with foot ulcer I10 Essential (primary) hypertension E66.01 Morbid (severe) obesity due to excess calories I48.0 Paroxysmal atrial fibrillation Z68.43 Body mass index (BMI) 50.0-59.9, adult Office Visit 04/11/2019 [facility] T[facility] Disruption of 12:26p For Infectious Bacon, [employer] external Diseases operation (surgical) wound, NEC, subs E11.621 Type 2 diabetes mellitus with foot ulcer L97.529 Non-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 E11.40 Type 2 diabetes mellitus with diabetic neuropathy, unsp Office Visit 04/11/2019 [facility] L97.529 Non-pressure 10:23a cedric Chamberlain [...] w unsp severity [facility] E[facility].621 Type 2 cedric Chamberlain M.D. diabetes Hospitalists mellitus with foot ulcer L97.529 Non-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 I48.91 Unspecified atrial fibrillation Office Visit 04/10/2019 [facility] Samaria Anthonymirthaeliot T81.31xD Disruption of 12:22p For Infectious Arleen, [employer] external Diseases operation (surgical) wound, NEC, subs E11.621 Type 2 diabetes mellitus with foot ulcer L97.529 Non-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 E11.40 Type 2 diabetes mellitus with diabetic neuropathy, unsp [facility], Z01.419 Encntr for insurance compliance analyst [facility] LOT ATTENDANT-Cde exam (general) (routine) w/o abn findings Z12.31 Encntr screen mammogram for malignant neoplasm of breast Office Visit 03/26/2019 [facility] Cesar Dickson L97.529 Non-pressure 1:40p For Infectious [facility] Mabry chronic ulcer oth Diseases prt left foot w unsp severity E11.621 Type 2 diabetes mellitus with foot ulcer Office Visit 02/26/2019 [facility] Cesar Dickson M86.672 Other chronic 4:20p For Infectious Apoorva Mabry osteomyelitis, left Diseases ankle and foot E11.69 Type 2 diabetes mellitus with other specified complication Office Visit 02/20/2019 [facility] M86.9 Osteomyelitis, 8:50a cedric Chamberlain MD unspecified Hospitalists I38 Endocarditis, valve unspecified E11.40 Type 2 diabetes mellitus with diabetic neuropathy, unsp I48.0 Paroxysmal atrial fibrillation I10 Essential (primary) hypertension G47.33 Obstructive sleep apnea (adult) (pediatric) Office Visit 02/20/2019 [facility] Samaria Zeus E11.69 Type 2 diabetes 10:36a For Infectious Arleen [employer] mellitus with Diseases other specified complication M86.672 Other chronic osteomyelitis, left ankle and foot Z89.422 Acquired absence of other left toe(s) Office 02/19/2019 [facility] M86.672 Other chronic Visit 8:49a cedric Chamberlain MD osteomyelitis, left Hospitalists ankle and foot E11.621 Type 2 diabetes mellitus with foot ulcer E11.40 Type 2 diabetes mellitus with diabetic neuropathy, unsp F41.9 Anxiety disorder, unspecified F32.9 Major depressive disorder, single episode, unspecified I48.0 Paroxysmal atrial fibrillation Office Visit 02/19/2019 [facility] E11.69 Type 2 diabetes 10:35a For Infectious Bacon, [employer] mellitus with Diseases other specified complication M86.672 Other chronic osteomyelitis, left ankle and foot Z89.422 Acquired absence of other left toe(s) Office 02/18/2019 [facility] System[facility] Other chronic Visit 8:49a cedric Chamberlain PA osteomyelitis, Hospitalists left ankle and foot E11.621 Type 2 diabetes mellitus with foot ulcer E11.40 Type 2 diabetes mellitus with diabetic neuropathy, unsp I48.0 Paroxysmal atrial fibrillation F41.9 Anxiety disorder, unspecified F32.9 Major depressive disorder, single episode, unspecified Office 02/17/2019 [facility] M86.672 Other chronic Visit 8:48a cedric Chamberlain PA osteomyelitis, Hospitalists left ankle and foot E11.621 Type 2 diabetes mellitus with foot ulcer E11.40 Type 2 diabetes mellitus with diabetic neuropathy, unsp I48.0 Paroxysmal atrial fibrillation F41.9 Anxiety disorder, unspecified F32.9 Major depressive disorder, single episode, unspecified Office 02/16/2019 [facility] System86.672 Other chronic Visit 8:48a cedric Chamberlain PA osteomyelitis, Hospitalists left ankle and foot E11.621 Type 2 diabetes mellitus with foot ulcer E11.40 Type 2 diabetes mellitus with diabetic neuropathy, unsp I48.0 Paroxysmal atrial fibrillation F41.9 Anxiety disorder, unspecified F32.9 Major depressive disorder, single episode, unspecified Office Visit 02/16/2019 [facility] E11.69 Type 2 diabetes 10:33a For Infectious Bacon, [employer] mellitus with Diseases other specified complication M86.672 Other chronic osteomyelitis, left ankle and foot E11.621 Type 2 diabetes mellitus with foot ulcer L97.529 Non-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 Z89.422 Acquired absence of other left toe(s) Office 02/15/2019 [facility] M86.672 Other chronic Visit 8:46a cedric Chamberlain PA osteomyelitis, Hospitalists left ankle and foot E11.621 Type 2 diabetes mellitus with foot ulcer E11.40 Type 2 diabetes mellitus with diabetic neuropathy, unsp I48.91 Unspecified atrial fibrillation F41.9 Anxiety disorder, unspecified F32.9 Major depressive disorder, single episode, unspecified Office 02/14/2019 [facility] Dee Dee M86.672 Other chronic Visit 8:42a cedric Chamberlain PA osteomyelitis, Hospitalists left ankle and foot E11.621 Type 2 diabetes mellitus with foot ulcer E11.40 Type 2 diabetes mellitus with diabetic neuropathy, unsp I48.91 Unspecified atrial fibrillation F41.9 Anxiety disorder, unspecified F32.9 Major depressive disorder, single episode, unspecified Office Visit 02/13/2019 [facility] Alex M86.672 Other chronic 8:42a cedric Chamberlain PA osteomyelitis, left Hospitalists ankle and foot E11.621 Type 2 diabetes mellitus with foot ulcer F41.9 Anxiety disorder, unspecified F32.9 Major depressive disorder, single episode, unspecified I48.91 Unspecified atrial fibrillation G47.33 Obstructive sleep apnea (adult) (pediatric) Office Visit 02/12/2019 [facility] M86.672 Other chronic 8:41a cedric Chamberlain PA osteomyelitis, left Hospitalists ankle and foot E11.621 Type 2 diabetes mellitus with foot ulcer F41.9 Anxiety disorder, unspecified F32.9 Major depressive disorder, single episode, unspecified I48.91 Unspecified atrial fibrillation G47.33 Obstructive sleep apnea (adult) (pediatric) Office Visit 02/12/2019 [facility] E11.69 Type 2 diabetes 10:31a For Infectious Bacon, [employer] mellitus with Diseases other specified complication M86.672 Other chronic osteomyelitis, left ankle and foot E11.621 Type 2 diabetes mellitus with foot ulcer L97.529 Non-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 Office Visit 02/11/2019 [facility] M86.672 Other chronic 8:41a cedric Chamberlain PA osteomyelitis, left Hospitalists ankle and foot E11.621 Type 2 diabetes mellitus with foot ulcer F41.9 Anxiety disorder, unspecified F32.9 Major depressive disorder, single episode, unspecified I48.91 Unspecified atrial fibrillation Office Visit 02/10/2019 [facility] Alex M86.672 Other chronic 8:40a Assoc,[facility] [place] osteomyelitis, left Hospitalists ankle and foot E11.621 Type 2 diabetes mellitus with foot ulcer N18.9 Chronic kidney disease, unspecified I48.0 Paroxysmal atrial fibrillation I10 Essential (primary) hypertension G47.33 Obstructive sleep apnea (adult) (pediatric) Office Visit 02/10/2019 [facility]ella E11.40 Type 2 diabetes 12:33p [facility] [place] mellitus with [place] diabetic neuropathy, unsp M86.172 Other acute osteomyelitis, left ankle and foot Office Visit 01/22/2019 2:20p [place] [facility] Chris Santos I48.0 Paroxysmal atrial 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 Morin, DO fibrillation FAC I63.9 Cerebral infarction, unspecified Z95.2 Presence of prosthetic heart valve E78.5 Hyperlipidemia, unspecified E11.8 Type 2 diabetes mellitus with unspecified complications Assessments Date Code Description Provider 05/07/2019 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 severity 05/07/2019 I70.245 Atherosclerosis of [place] arteries Samaria Bacon NP of left leg with ulceration of other part of foot 05/07/2019 E11.40 Type 2 diabetes mellitus with Samaria Bacon NP diabetic neuropathy, unspecified 05/07/2019 E11.621 Type 2 diabetes mellitus with foot Samaria Bacon NP ulcer 05/03/2019 L97.529 Non-pressure chronic ulcer of other Abel Lucero M.D. part of left foot with unspecified severity 05/02/2019 I70.245 Atherosclerosis of [place] arteries Naresh Quezada M.D. of left leg [...] E11.621 Type 2 diabetes mellitus with foot Mouniak Tafoya M.D. ulcer 04/13/2019 E11.40 Type 2 [...] 04/09/2019 T81.31xD Disruption of external operation Abel Luceor M.D. (surgical) wound, not elsewhere classified, subsequent encounter 04/05/2019 Z01.419 Encounter for gynecological CONNOR Kim-Landry examination (general) (routine) without abnormal findings 04/05/2019 [...] chronic ulcer of other Samaria Zeus Bacon, JOHN part of left foot with unspecified severity 02/16/2019 F41.9 Anxiety disorder, unspecified Dee Dee Ordonez, PA 02/16/2019 Z89.422 Acquired absence of other left Samaria Zeus Bacon, [employer] toe(s) 02/16/2019 F32.9 Major depressive disorder, single [...] 02/13/2019 F32.9 Major depressive disorder, single Alex Dara PA episode, unspecified 02/13/2019 I48.91 Unspecified atrial fibrillation DAT Justice 02/13/2019 G47.33 Obstructive sleep apnea (adult) [facility] [place] (pediatric) 02/12/2019 M86.672 Other chronic osteomyelitis, left DAT Justice ankle and foot 02/12/2019 E11.69 Type 2 diabetes mellitus with other Samaria Bacon, [employer] specified complication 02/12/2019 E11.621 Type 2 diabetes mellitus with foot DAT Justice ulcer 02/12/2019 M86.172 Other acute osteomyelitis, left Chris Morin, DO [facility] ankle and foot 02/12/2019 F41.9 Anxiety disorder, unspecified DAT [place] 02/12/2019 M86.672 Other chronic osteomyelitis, left Samaria Zeus Bacon [employer] ankle and foot 02/12/2019 F32.9 Major depressive disorder, single DAT [place] episode, unspecified 02/12/2019 M86.172 Other acute osteomyelitis, left Abhilash De La Torre, RPA-C ankle and foot 02/12/2019 I48.91 Unspecified atrial fibrillation DAT [facility] 02/12/2019 E11.621 Type 2 diabetes mellitus with foot Samaria Schulz Bacon, [employer] ulcer 02/12/2019 G47.33 Obstructive sleep apnea (adult) DAT [place] (pediatric) 02/12/2019 M86.172 Other acute osteomyelitis, left Abel Lucero M.D. ankle and foot 02/12/2019 L97.529 Non-pressure chronic ulcer of other Samaria Champanhenrry Bacon [employer] part of left foot with unspecified severity [...] 2 diabetes mellitus with Chris Morin, DO [facility] unspecified complications Plan of Treatment Future Appointment(s):06/21/2019 10:00 am - Samaria Bacon NP at [facility] Qyxihxjn03/02/2020 11:15 am - Abel Lucero M.D. at [facility] at Sdxytd9007/19/2019 10:00 am - Cristhian Kiser MD at [facility]05/07/2019 - Samaria Bacon, NPL97.529 Non-pressure chronic ulcer of other part of left foot with unspecified severityComments:Please call the office if you develop redness or swelling in the left foot, or new wounds.Follow up:4-6 weeks (ok for telemedicine)I70.245 Atherosclerosis of [place] arteries of left leg with ulceration of other part of footE11.40 Type 2 diabetes mellitus with diabetic neuropathy, fdlmtifserfT89.621 Type 2 diabetes mellitus with foot ulcer Functional Status Description No Information Available Mental Status Description No Information Available Referrals Refer to Dr Reason for Referral Status Appt Abel Harris MD lady with dysvascular ray amputation left Sent foot. please eval [address] [facility] [address] [place] [address] [phone] Lexii Forrester MD Referral to the [facility] for [facility] Sent Living to explore weight loss options [address] [facility] [address] [place] [address] [phone] Naresh Quezada MD Left foot non healing wound, eval blood flow Closed and need for further intervention [address] [facility] [address] [place] [address] [phone]
--- OUTSIDE RECORDS SUMMARY | 2019-06-08 19:56 | XMS REPORT ---
:1965 Author Organization [facility] Care Team Providers Name Role Phone Unavailable [...] knowledge/s Pain Mgmt Active Stefany kill 04-17 [place] deficit: pt 12:15: [id number] 00 Respiratory dyspnea Respirator Active Stefany present y 04-17 [place] 12:15: [id number] 00 Endo/Vito anti-coagul Endo/Vito Active 2020-0 Stefany ation 3- [place] therapy 12:15: [id number] 00 Integument knowledge/s Integument Active 2020-0 Stefany kill 04-17 [place] deficit: pt 12:15: [id number] 00 Nutrition nutritional Nutrition Active 2020-0 Stefany restriction 04-17 [place] s 12:15: [id number] Safety risk for Safety Active 2020-0 Stefany hospitaliza 04-17 [place] tion 12:15: [id number] 00 Safety structural Safety Active 2020-0 Stefany barriers - [place] present 12:15: [id number] 00 Safety safety Safety Active 2020-0 Stefany hazards - [place] present 12:15: [id number] 00 Safety sanitation Safety Active 2020-0 Stefany hazards 04-17 [place] present 12:15: [id number] 00 Safety fall risk Safety Active 2020-0 Stefany factor 04-17 [place] present 12:15: [id number] 00 Medication knowledge/s Meds Active 2020-0 Stefany kill 04-17 [place] deficit: pt 12:15: [id number] 00 Diagnoses knowledge/s Diagnoses Active 2020-0 Stefany kill 04-17 [place] deficit: cg 12:15: [id number] 00 Musculoskel transfer Musculoske Active 2020-0 Stefany etal assistance letal 04-17 [place] required 12:15: [id number] 00 Musculoskel requires Musculoske Active 2020-0 Stefany etal human letal 04-17 [place] assist to 12:15: [id number] leave home 00 Nutrition knowledge/s Nutrition Active 2020-0 Della kill 3-06 Carrier RN deficit: pt 16:55: 00 Nutrition knowledge/s Nutrition Active 2020-0 Della kill 3-06 Carrier RN deficit: cg 16:55: 00 Integument skin Integument Active 2020-0 [place]ella integrity 3-11 Carrier RN risk 16:20: 00 Cardio edema Cardiovasc Active 2020-0 [facility] ular 3- [place] 10:30: [id number] 00 Endo/Vito insulin Endo/Vito Active 2020-0 [facility] admn 3- [place] dependence 10:30: [id number] 00 Endo/Vito glucose Endo/Vito Active 2020-0 Cherrise testing 3-13 [place] dependence 10:30: [id number] 00 Elimination urinary Eliminatio Active Cherrise urgency n 04-26 [place] 10:30: [id number] 00 Elimination urinary Eliminatio Active Cherrise frequency n 04-26 [place] 10:30: [id number] 00 Neuro impaired Neuro/Emot Active Cherrise decision-ma ion 04-26 [place] brian 10:30: [id number] 00 Neuro memory Neuro/Emot Active [facility] deficit ion 04-26 [place] needing 10:30: [id number] supervision 00 Cardio hypertensio Cardiovasc Active Cherrise n ular 05-08 [place] 09:30: [id number] 00 Allergies, Adverse Reactions, Alerts Allergy Allergy Status Severity Reaction(s) Onset Inactive Treating Comments Name Type Date Date Clinician Uncoded Unknown Active Unknown Reaction 2019-03 Interface free-text allergy Medications Ordered Filled Start Stop Current [...] metoprolol Yes Nic Unknown Unknown succinate succinate 04-17 Abel PANCHAL ER 25 mg ER 25 mg G tablet,exte tablet,exte nded nded release 24 release 24 hr hr Xultophy Xultophy Yes Nic Unknown Unknown 100/3.6 100/3.6 3- Abel PANCHAL 100 100 G unit-3.6 unit-3.6 mg/mL (3 mg/mL (3 mL) mL) subcutaneou subcutaneou s insulin s insulin pen pen cholecalcif cholecalcif Yes Nic Unknown Unknown yuridia yuridia 3-04 Abel PANCHAL (vitamin (vitamin G D3) 1,000 D3) 1,000 unit unit capsule capsule gabapentin gabapentin Yes Nic Unknown Unknown 300 mg 300 mg 3-04 Abel PANCHAL capsule capsule G Vital Signs Vital Name Observation Time Observation Value Comments SYSTOLIC mm[Hg] 2019-05-11 18:11:05 158 mm[Hg] mm[Hg] Method: Sit DIASTOLIC mm[Hg] 2019-05-11 18:11:05 89 mm[Hg] mm[Hg] Method: Sit PULSE 2019-05-11 18:11:05 76 /min /min RESP RATE 2019-05-11 18:11:05 16 /min /min TEMP 2019-05-11 18:11:05 97.5 [degF] Procedures This patient has no known procedures. Results This patient has no known results.
--- OUTSIDE RECORDS SUMMARY | 2019-06-08 19:56 | XMS REPORT ---
:1965 Author Organization [facility] Care Team Providers Name Role Phone Unavailable [...] knowledge/s Pain Mgmt Active Stefany kill 04-17 [place] deficit: pt 12:15: [id number] 00 Respiratory dyspnea Respirator Active Stefany present y 04-17 [place] 12:15: [id number] 00 Endo/Vito anti-coagul Endo/Vito Active 2020-0 Stefany ation 3- [place] therapy 12:15: [id number] 00 Integument knowledge/s Integument Active 2020-0 Stefany kill 04-17 [place] deficit: pt 12:15: [id number] 00 Nutrition nutritional Nutrition Active 2020-0 Stefany restriction 04-17 [place] s 12:15: [id number] 00 Safety risk for Safety Active 2020-0 Stefany hospitaliza 04-17 [place] tion 12:15: [id number] 00 Safety structural Safety Active 2020-0 Stefany barriers - [place] present 12:15: [id number] 00 Safety safety Safety Active 2020-0 Stefany hazards - [place] present 12:15: [id number] 00 Safety sanitation Safety Active 2020-0 Stefany hazards 04-17 [place] present 12:15: [id number] 00 Safety fall risk Safety Active 2020-0 Stefany factor 04-17 [place] present 12:15: [id number] 00 Medication knowledge/s Meds Active 2020-0 Stefany kill 04-17 [place] deficit: pt 12:15: [id number] 00 Diagnoses knowledge/s Diagnoses Active 2020-0 Stefany kill 04-17 [place] deficit: cg 12:15: [id number] 00 Musculoskel transfer Musculoske Active 2020-0 Stefany etal assistance letal 04-17 [place] required 12:15: [id number] 00 Musculoskel requires Musculoske Active 2020-0 Stefany etal human letal 04-17 [place] assist to 12:15: [id number] leave home 00 Nutrition knowledge/s Nutrition Active 2020-0 Della kill 3-06 Carrier RN deficit: pt 16:55: 00 Nutrition knowledge/s Nutrition Active 2020-0 Della kill 3-06 Carrier RN deficit: cg 16:55: 00 Integument skin Integument Active 2020-0 Della integrity 3-11 Carrier RN risk 16:20: 00 Cardio edema Cardiovasc Active 2020-0 Cherrise ular 3- [place] 10:30: [id number] 00 Endo/Vito insulin Endo/Vito Active 2020-0 Cherrise admn 3- [place] dependence 10:30: [id number] 00 Endo/Vito glucose Endo/Vito Active 2020-0 [place] testing 3-13 [place] dependence 10:30: [id number] 00 Elimination urinary Eliminatio Active Cherrise urgency n 04-26 [place] 10:30: [id number] 00 Elimination urinary Eliminatio Active Cherrise frequency n 04-26 [place] 10:30: [id number] 00 Neuro impaired Neuro/Emot Active [place] decision-ma ion 04-26 [place] brian 10:30: [id number] 00 Neuro memory Neuro/Emot Active [place] deficit ion 04-26 [place] needing 10:30: [id number] supervision 00 Cardio hypertensio Cardiovasc Active Cherrise n ular 05-08 [place] 09:30: [id number] 00 Allergies, Adverse Reactions, Alerts Allergy Allergy [...] Observation Time Observation Value Comments SYSTOLIC mm[Hg] 2019-05-09 18:11:03 138 mm[Hg] mm[Hg] Method: Sit DIASTOLIC mm[Hg] 2019-05-09 18:11:03 98 mm[Hg] mm[Hg] Method: Sit PULSE 2019-05-09 18:11:03 69 /min /min RESP RATE 2019-05-09 18:11:03 16 /min /min TEMP 2019-05-09 18:11:03 97.7 [degF] Procedures This patient has no known procedures. Results This patient has no known results.
--- OUTSIDE RECORDS SUMMARY | 2019-06-08 19:56 | XMS REPORT ---
:1965 Author Organization [facility] Care Team Providers Name Role [...] knowledge/s Pain Mgmt Active Stefany kill 04-17 [place] deficit: pt 12:15: [id number] Respiratory dyspnea Respirator Active Stefany present y 04-17 [place] 12:15: [id number] Endo/Vito anti-coagul Endo/Vito Active 2020-0 Stefany ation 3- [place] therapy 12:15: [id number] Integument knowledge/s Integument Active 2020-0 Stefany kill 04-17 [place] deficit: pt 12:15: [id number] 00 Nutrition nutritional Nutrition Active 2020-0 Stefany restriction 04-17 [place] s 12:15: [id number] 00 Safety risk for Safety Active 2020-0 Stefany hospitaliza 04-17 [place] tion 12:15: [id number] 00 Safety structural Safety Active 2020-0 Stefany barriers - [place] present 12:15: [id number] Safety safety Safety Active 2020-0 Stefany hazards - [place] present 12:15: [id number] Safety sanitation Safety Active 2020-0 Stefany hazards 04-17 [place] present 12:15: [id number] 00 Safety fall risk Safety Active 2020-0 Stefany factor 04-17 [place] present 12:15: [id number] 00 Medication knowledge/s Meds Active 2020-0 Stefany kill 04-17 [place] deficit: pt 12:15: [id number] 00 Diagnoses knowledge/s Diagnoses Active 2020-0 Stefany kill 04-17 [place] deficit: cg 12:15: [id number] 00 Musculoskel transfer Musculoske Active 2020-0 Stefany etal assistance letal 04-17 [place] required 12:15: [id number] 00 Musculoskel requires Musculoske Active 2020-0 Stefany etal human letal 04-17 [place] assist to 12:15: [id number] leave home 00 Nutrition knowledge/s Nutrition Active 2020-0 Della kill 3-06 Carrier RN deficit: pt 16:55: 00 Nutrition knowledge/s Nutrition Active 2020-0 Della kill 3-06 [place] RN deficit: cg 16:55: 00 Integument skin Integument Active 2020-0 Della integrity 3-11 Carrier RN risk 16:20: 00 Cardio edema Cardiovasc Active 2020-0 Cherrise ular 3- [place] 10:30: [id number] 00 Endo/Vito insulin Endo/Vito Active 2020-0 Cherrise admn 3- Surjit dependence 10:30: [id number] 00 Endo/Vito glucose Endo/Vito Active 2020-0 Cherrise testing 3-13 [place] dependence 10:30: [id number] 00 Elimination urinary Eliminatio Active Cherrise urgency n 04-26 [place] 10:30: [id number] 00 Elimination urinary Eliminatio Active Cherrise frequency n 04-26 [place] 10:30: [id number] 00 Neuro impaired Neuro/Emot Active Cherrise decision-ma ion 04-26 [place] brian 10:30: [id number] 00 Neuro memory Neuro/Emot Active [place] deficit ion 04-26 [place] needing 10:30: [id number] supervision 00 Cardio hypertensio Cardiovasc Active Cherrise n ular 05-08 [place] 09:30: [id number] 00 Allergies, Adverse Reactions, Alerts Allergy Allergy [...] 3-04 Abel PANCHAL (vitamin (vitamin G D3) 25 [...]
--- OUTSIDE RECORDS SUMMARY | 2019-06-08 19:56 | XMS REPORT | Continuity of Care Document ---
:1965 External Reference #:[id number] Author Name Samaria Bacon NP (transmitted by agent of provider Princess Singh) Address [address] [place] [id number] Care Team Providers Name Role Phone Matthew Murphy MD - Internal Care Team Information Washery Engineer Medicine Abel Bojorquez MD - Vascular Care Team Information Washery Engineer Surgery Problems Active Problems Provider Date Type [...] Fredy Duarte M.D. 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 Onset: [...] 15gm Leonides Johnson, 04/25/2019 e areas of 686947-0.1Unit/GM-% concerns as Cream needed for rash Doxycycline [...] Result H/L Range Note Laboratory test 04/09/2019 [facility] Point of 148 mg/dL High 70-[address] [place] [address] [phone] CBC Auto Diff 02/26/2019 [facility] White Blood 7.2 10^3/uL Normal 3.5-10.[address] [place] [address] [phone] Red Blood Count 3.97 10^6/uL Normal 3.70-4.87 [...] Blood Cells % 0.0 Comp Metabolic 02/26/2019 [facility] Sodium 142 mmol/L Normal 135-145 Panel [address] [place] [address] [phone] Potassium 4.6 mmol/L Normal 3.5-5.0 Chloride 103 [...] Egfr 60.9 >60 2 Laboratory test 02/26/2019 [facility] Vancomycin Trough 25.8 g /mL 3 finding [address] [place] [address] [phone] C Reactive Protein 5.45 mg/L Normal <8.01 1 Contract Technician: [id number] 2 Because ethnic data is not always [...] Infections Procedures Date Code Description Status 04/09/2019 98583 Debridement Skin,& sq Tissue Completed 04/09/2019 26985 Debridement Skin,& sq Tissue Completed 02/12/2019 41814 EKG, Interpretation Only Completed 02/12/2019 83315 Amputation Metatarsal W/Toe Completed 02/12/2019 10003 Amputation Metatarsal W/Toe Completed 02/10/2019 90214 EKG, Interpretation Only Completed 01/22/2019 37897 EKG Tracing & Interpretation Completed 03/25/2014 [id number] Diabetic Retinal Eye Exam Completed 03/25/2014 [id number] Mammogram Completed Medical Devices Description No Information Available Encounters Type Date Location Provider Dx Diagnosis Office Visit 05/07/2019 [facility] Samaria Schulz L97.529 Non- pressure 2:30p Infectious Arleen, GRAIN PACKER chronic ulcer Diseases oth prt left foot w unsp severity I70.245 Athscl false pass arteries of left leg w ulceration oth prt foot E11.40 Type 2 diabetes mellitus with diabetic neuropathy, unsp E11.621 Type 2 diabetes mellitus with foot ulcer Office Visit 05/02/2019 7:30a Luis Antonio Yanez I70.245 Athscl false pass Medicine Of Isiah Quezada M.D. 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 chronic ulcer oth Hospitalists prt left foot w unsp severity E11.621 Type 2 diabetes mellitus with foot ulcer I10 Essential (primary) hypertension I48.0 Paroxysmal atrial fibrillation Office Visit 04/12/2019 [facility] L97.529 Non-pressure 10:23a cedric Chamberlain M.D. chronic ulcer oth Hospitalists prt left foot w unsp severity E11.621 Type 2 diabetes mellitus with foot ulcer I10 Essential (primary) hypertension E66.01 Morbid (severe) obesity due to excess calories I48.0 Paroxysmal atrial fibrillation Z68.43 Body mass index (BMI) 50.0-59.9, adult Office Visit 04/11/2019 [facility] T81.31xD Disruption of 12:26p For Infectious Bacon, GRAIN PACKER external Diseases operation (surgical) wound, NEC, subs E11.621 Type 2 diabetes mellitus with foot ulcer L97.529 Non-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 E11.40 Type 2 diabetes mellitus with diabetic neuropathy, unsp Office Visit 04/11/2019 [facility] L97.529 Non-pressure 10:23a cedric Chamberlain M.D. [...] w unsp severity [facility] E11.621 Type 2 cedric Chamberlain M.D. diabetes Hospitalists mellitus with foot ulcer L97.529 Non-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 I48.91 Unspecified atrial fibrillation Office Visit 04/10/2019 [facility] T81.31xD Disruption of 12:22p For Infectious Arleen, GRAIN PACKER external Diseases operation (surgical) wound, NEC, subs E11.621 Type 2 diabetes mellitus with foot ulcer L97.529 Non-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 E11.40 Type 2 diabetes mellitus with diabetic neuropathy, unsp Office Visit 04/05/2019 1:00p [facility] Shona Wei, Z01.419 Encntr for enforcement manager [facility] CQ DEVELOPER-Cde exam (general) (routine) w/o abn findings Z12.31 Encntr screen mammogram for malignant neoplasm of breast Office Visit 03/26/2019 [facility] Cesar Dickson L97.529 Non-pressure 1:40p For Infectious Apoorva Mabry chronic ulcer oth Diseases prt left foot w unsp severity E11.621 Type 2 diabetes mellitus with foot ulcer Office Visit 02/26/2019 [facility] Cesar Dickson M86.672 Other chronic 4:20p For Infectious Apoorva Mabry osteomyelitis, left Diseases ankle and foot E11.69 Type 2 diabetes mellitus with other specified complication [facility]el[facility], 8:50a Isabeloccedric MD unspecified Hospitalists I38 Endocarditis, valve unspecified E11.40 Type 2 diabetes mellitus with diabetic neuropathy, unsp I48.0 Paroxysmal atrial fibrillation I10 Essential (primary) hypertension G47.33 Obstructive sleep apnea (adult) (pediatric) Office Visit 02/20/2019 [facility] Samaria Schulz E11.69 Type 2 diabetes 10:36a For Infectious Arleen GRAIN PACKER mellitus with Diseases other specified complication M86.672 Other chronic osteomyelitis, left ankle and foot Z89.422 Acquired absence of other left toe(s) [facility] Other chronic Visit 8:49a cedric Chamberlain MD osteomyelitis, left Hospitalists ankle and foot E11.621 Type 2 diabetes mellitus with foot ulcer E11.40 Type 2 diabetes mellitus with diabetic neuropathy, unsp F41.9 Anxiety disorder, unspecified F32.9 Major depressive disorder, single episode, unspecified I48.0 Paroxysmal atrial fibrillation Office Visit 02/19/2019 [facility] E11.69 Type 2 diabetes 10:35a For Infectious Bacon, GRAIN PACKER mellitus with Diseases other specified complication M86.672 Other chronic osteomyelitis, left ankle and foot Z89.422 Acquired absence of other left toe(s) Office 02/18/2019 [facility] M86.672 Other chronic Visit 8:49a cedric Chamberlain PA osteomyelitis, Hospitalists left ankle and foot E11.621 Type 2 diabetes mellitus with foot ulcer E11.40 Type 2 diabetes mellitus with diabetic neuropathy, unsp I48.0 Paroxysmal atrial fibrillation F41.9 Anxiety disorder, unspecified F32.9 Major depressive disorder, single episode, unspecified Office 02/17/2019 [facility] M86.672 Other chronic Visit 8:48a cedric Chamberlain PA osteomyelitis, Hospitalists left ankle and foot E11.621 Type 2 diabetes mellitus with foot ulcer E11.40 Type 2 diabetes mellitus with diabetic neuropathy, unsp I48.0 Paroxysmal atrial fibrillation F41.9 Anxiety disorder, unspecified F32.9 Major depressive disorder, single episode, unspecified Office 02/16/2019 [facility] M86.672 Other chronic Visit 8:48a cedric Chamberlain PA osteomyelitis, Hospitalists left ankle and foot E11.621 Type 2 diabetes mellitus with foot ulcer E11.40 Type 2 diabetes mellitus with diabetic neuropathy, unsp I48.0 Paroxysmal atrial fibrillation F41.9 Anxiety disorder, unspecified F32.9 Major depressive disorder, single episode, unspecified Office Visit 02/16/2019 [facility] E11.69 Type 2 diabetes 10:33a For Infectious Arleen, GRAIN PACKER mellitus with Diseases other specified complication M86.672 Other chronic osteomyelitis, left ankle and foot E11.621 Type 2 diabetes mellitus with foot ulcer L97.529 Non-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 Z89.422 Acquired absence of other left toe(s) Office 02/15/2019 [facility]86.672 Other chronic Visit 8:46a cedric Chamberlain PA osteomyelitis, Hospitalists left ankle and foot E11.621 Type 2 diabetes mellitus with foot ulcer E11.40 Type 2 diabetes mellitus with diabetic neuropathy, unsp I48.91 Unspecified atrial fibrillation F41.9 Anxiety disorder, unspecified F32.9 Major depressive disorder, single episode, unspecified Office 02/14/2019 [facility] Dee Dee M86.672 Other chronic Visit 8:42a cedric Chamberlain PA osteomyelitis, Hospitalists left ankle and foot E11.621 Type 2 diabetes mellitus with foot ulcer E11.40 Type 2 diabetes mellitus with diabetic neuropathy, unsp I48.91 Unspecified atrial fibrillation F41.9 Anxiety disorder, unspecified F32.9 Major depressive disorder, single episode, unspecified Office Visit 02/13/2019 [facility] Alex M86.672 Other chronic 8:42a cedric Chamberlain PA osteomyelitis, left Hospitalists ankle and foot E11.621 Type 2 diabetes mellitus with foot ulcer F41.9 Anxiety disorder, unspecified F32.9 Major depressive disorder, single episode, unspecified I48.91 Unspecified atrial fibrillation G47.33 Obstructive sleep apnea (adult) (pediatric) Office Visit 02/12/2019 [facility] Alex M86.672 Other chronic 8:41a cedric Chamberlain PA osteomyelitis, left Hospitalists ankle and foot E11.621 Type 2 diabetes mellitus with foot ulcer F41.9 Anxiety disorder, unspecified F32.9 Major depressive disorder, single episode, unspecified I48.91 Unspecified atrial fibrillation G47.33 Obstructive sleep apnea (adult) (pediatric) Office Visit 02/12/2019 [facility] E11.69 Type 2 diabetes 10:31a For Infectious Bacon, GRAIN PACKER mellitus with Diseases other specified complication M86.672 Other chronic osteomyelitis, left ankle and foot E11.621 Type 2 diabetes mellitus with foot ulcer L97.529 Non-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 Office Visit 02/11/2019 [facility] Alex M86.672 Other chronic 8:41a cedric Chamberlain PA osteomyelitis, left Hospitalists ankle and foot E11.621 Type 2 diabetes mellitus with foot ulcer F41.9 Anxiety disorder, unspecified F32.9 Major depressive disorder, single episode, unspecified I48.91 Unspecified atrial fibrillation Office Visit 02/10/2019 [facility] Alex M86.672 Other chronic 8:40a cedric Chamberlain PA osteomyelitis, left Hospitalists ankle and foot E11.621 Type 2 diabetes mellitus with foot ulcer N18.9 Chronic kidney disease, unspecified I48.0 Paroxysmal atrial fibrillation I10 Essential (primary) hypertension G47.33 Obstructive sleep apnea (adult) (pediatric) Office Visit 02/10/2019 [facility] E11.40 Type 2 diabetes 12:33p [facility] [place] mellitus with [place] diabetic neuropathy, unsp M86.172 Other acute osteomyelitis, left ankle and foot Office Visit 01/22/2019 2:20p [facility] Chris Santos I48.0 Paroxysmal atrial Of Parts Sales Associate Morin, DO fibrillation FAC I63.9 Cerebral infarction, unspecified Z95.2 Presence of prosthetic heart valve E78.5 Hyperlipidemia, unspecified E11.8 Type 2 diabetes mellitus with unspecified complications Assessments Date Code Description Provider 05/07/2019 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 severity 05/07/2019 I70.245 Atherosclerosis of false pass arteries Samaria Bacon NP of left leg with ulceration of other part of foot 05/07/2019 E11.40 Type 2 diabetes mellitus with Samaria Bacon NP diabetic neuropathy, unspecified 05/07/2019 E11.621 Type 2 diabetes mellitus with foot Samaria Bacon NP ulcer 05/03/2019 L97.529 Non-pressure chronic ulcer of other Abel Luecro M.D. part of left foot with unspecified severity 05/02/2019 I70.245 Atherosclerosis of false pass arteries Naresh Quezada M.D. of left leg [...] with Samaria Bcaon NP diabetic neuropathy, unspecified 04/13/2019 E11.621 Type [...] 04/05/2019 Z01.419 Encounter for gynecological Shona Wei [facility]-staci examination (general) (routine) without abnormal findings 04/05/2019 L97.529 Non-pressure chronic ulcer of other Abel Lucero M.D. part of left foot with unspecified severity 04/05/2019 Z12.31 Encounter for screening mammogram [facility]-staci for malignant neoplasm of breast 04/05/2019 E11.621 [...] Type 2 diabetes mellitus with Dee Deefreedom Ordonez, PA diabetic neuropathy, unspecified 02/17/2019 I48.0 Paroxysmal atrial fibrillation Dee Dee Ordonez, PA 02/17/2019 F41.9 Anxiety disorder, unspecified Dee Dee Ordonez, PA 02/17/2019 F32.9 Major depressive disorder, single Dee Dee Ordonez, PA episode, unspecified 02/16/2019 M86.672 Other chronic osteomyelitis, left Dee Deefreedom Ordonez, PA ankle and foot 02/16/2019 E11.69 Type 2 diabetes mellitus with other Samaria Bacon NP specified complication 02/16/2019 E11.621 Type 2 diabetes mellitus with foot Dee Deefreedom [place], PA ulcer 02/16/2019 M86.672 Other chronic osteomyelitis, left Samaria Bacon NP ankle and foot 02/16/2019 E11.40 Type 2 diabetes mellitus with Dee Deefreedom Ordonez, PA diabetic neuropathy, unspecified 02/16/2019 E11.621 [...] unspecified 02/14/2019 I48.91 Unspecified atrial fibrillation Dee Deefreedom [place], PA 02/14/2019 F41.9 Anxiety disorder, unspecified Dee Dee Ordonez, PA 02/14/2019 F32.9 Major depressive disorder, single Dee Dee Ordonez, PA episode, unspecified 02/13/2019 M86.672 Other chronic osteomyelitis, left Alex Diamond PA ankle and foot 02/13/2019 E11.621 Type [...] Type 2 diabetes mellitus with other Samaria Arimorrodenisekita Bacon, GRAIN PACKER specified complication 02/12/2019 E11.621 Type 2 diabetes mellitus with foot [facility] [place] ulcer 02/12/2019 M86.172 Other acute osteomyelitis, left Chris Morin DO [facility] ankle and foot 02/12/2019 F41.9 Anxiety disorder, unspecified [place] 02/12/2019 M86.672 Other chronic osteomyelitis, left Samaria Zeus Bacon GRAIN PACKER ankle and foot 02/12/2019 F32.9 Major depressive disorder, single [place] episode, unspecified 02/12/2019 M86.172 Other acute osteomyelitis, left Abhilash De La Torre, [facility] ankle and foot 02/12/2019 I48.91 Unspecified atrial fibrillation [facility] [place] 02/12/2019 E11.621 Type 2 diabetes mellitus with foot Samaria Chapmanhenrry Bacon NP ulcer 02/12/2019 G47.33 Obstructive sleep apnea (adult) DAT [place] (pediatric) 02/12/2019 M86.172 Other acute osteomyelitis, left Abel Lucero M.D. ankle and foot 02/12/2019 L97.529 Non-pressure chronic ulcer of other Samaria Chapmanhenrry Bacon NP part of left foot with [...] I48.0 Paroxysmal atrial fibrillation Chris Morin, DO FACC 01/22/2019 I63.9 Cerebral infarction, unspecified Chris Morin, DO FACC 01/22/2019 Z95.2 Presence of prosthetic heart valve Chris Morin DO FACC 01/22/2019 E78.5 Hyperlipidemia, unspecified Chris Morin, DO FACC 01/22/2019 E11.8 Type 2 diabetes mellitus with Chris Morin, DO FAC unspecified complications Plan of Treatment Future Appointment(s):06/21/2019 10:00 am - Samaria Bacon NP at [facility] Btdcwngf46/02/2020 11:15 am - Abel Lucero M.D. at [facility] [place]/19/2019 10:00 am - Cristhian Kiser MD at [facility]05/07/2019 - Samaria Bacon, NPL97.529 Non-pressure chronic ulcer of other part of left foot with unspecified severityComments:Please call the office if you develop redness or swelling in the left foot, or new wounds.Follow up:4-6 weeks (ok for telemedicine)I70.245 Atherosclerosis of false pass arteries of left leg with ulceration of other part of footE11.40 Type 2 diabetes mellitus with diabetic neuropathy, hogaytkcjamD75.621 Type 2 diabetes mellitus with foot ulcer Functional Status Description No Information Available Mental Status Description No Information Available Referrals Refer to Reason for Referral Status Appt Date Abel Bojorquez MD lady with dysvascular ray amputation left Sent foot. please eval [address] [id number] [phone] Lexii Forrester MD Referral to the [facility] for Healthy Sent Living to explore weight loss options [address] [place] [address] [phone] Naresh Quezada MD Left foot non healing wound, eval blood flow Closed and need for further intervention [address] [place] [address] [phone]
--- OUTSIDE RECORDS SUMMARY | 2019-06-08 19:56 | XMS REPORT ---
[...] knowledge/s Pain Mgmt Active Stefany kill 04-17 [place] deficit: pt 12:15: [id number] Respiratory dyspnea Respirator Active Stefany present y 04-17 [place] 12:15: [id number] 00 Endo/Vito anti-coagul Endo/Vito Active 2020-0 Stefany ation 3- [place] therapy 12:15: [id number] 00 Integument knowledge/s Integument Active 2020-0 Stefany kill 04-17 [place] deficit: pt 12:15: [id number] 00 Nutrition nutritional Nutrition Active 2020-0 Stefany restriction 04-17 [place] s 12:15: [id number] 00 Safety risk for Safety Active 2020-0 Stefany hospitaliza 04-17 [place] tion 12:15: [id number] 00 Safety structural Safety Active 2020-0 Stefany barriers - [place] present 12:15: [id number] 00 Safety safety Safety Active 2020-0 Stefany hazards - [place] present 12:15: [id number] 00 Safety sanitation Safety Active 2020-0 Stefany hazards 04-17 [place] present 12:15: [id number] 00 Safety fall risk Safety Active 2020-0 Stefany factor 04-17 [place] present 12:15: [id number] 00 Medication knowledge/s Meds Active 2020-0 Stefany kill 04-17 [place] deficit: pt 12:15: [id number] 00 Diagnoses knowledge/s Diagnoses Active 2020-0 Stefany kill 04-17 [place] deficit: cg 12:15: [id number] 00 Musculoskel transfer Musculoske Active 2020-0 Stefany etal assistance letal 04-17 [place] required 12:15: [id number] 00 Musculoskel requires Musculoske Active 2020-0 Stefany etal human letal 04-17 [place] assist to 12:15: [id number] leave home 00 Nutrition knowledge/s Nutrition Active 2020-0 Della kill 3-06 Carrier RN deficit: pt 16:55: 00 Nutrition knowledge/s Nutrition Active 2020-0 Della kill 3-06 Carrier RN deficit: cg 16:55: 00 Integument skin Integument Active 2020-0 Della integrity 3-11 Carrier RN risk 16:20: 00 Cardio edema Cardiovasc Active 2020-0 Cherrise ular 3- [place] 10:30: [id number] 00 Endo/Vito insulin Endo/Vito Active 2020-0 Cherrise admn 3- [place] dependence 10:30: [id number] 00 Endo/Vito glucose Endo/Vito Active 2020-0 Cherrise testing 3-13 [place] dependence 10:30: [id number] 00 Elimination urinary Eliminatio Active Cherrise urgency n 04-26 [place] 10:30: [id number] 00 Elimination urinary Eliminatio Active Cherrise frequency n 04-26 [place] 10:30: [id number] 00 Neuro impaired Neuro/Emot Active Cherrise decision-ma ion 04-26 [place] brian 10:30: [id number] 00 Neuro memory Neuro/Emot Active 2019- Cherrise deficit ion 04-26 [place] needing 10:30: [id number] supervision 00 Allergies, Adverse Reactions, Alerts Allergy Allergy Status Severity Reaction(s) Onset Inactive Treating Comments Name Type Date Date Clinician Uncoded Unknown Active Unknown Reaction 2019-03 Interface free-text Unknown -25 allergy Medications Ordered Filled Start Stop Current Ordering Indication Dosage Frequency Signature Comments Components Medication Medication Date Date Medication? Clinician (SIG) Name Name doxycycline doxycycline 2020- Yes Nic Unknown Unknown monohydrate monohydrate 04-17- Abel PANCHAL 100 mg 100 mg G [...] Xultophy Yes Nic Unknown Unknown 100/3.6 100/3.6 3-04 Abel PANCHAL 100 100 G unit-3.6 unit-3.6 mg/mL (3 mg/mL (3 mL) mL) subcutaneou subcutaneou s insulin s insulin pen pen cholecalcif cholecalcif Yes Nic Unknown Unknown yuridia yuridia 3- Abel PANCHAL (vitamin (vitamin G D3) 1,000 D3) 1,000 unit unit capsule capsule gabapentin gabapentin 2020-0 Yes Nic Unknown Unknown 300 mg 300 mg 3-04 Abel PANCHAL capsule capsule G Vital Signs Vital Name Observation Time Observation Value Comments SYSTOLIC mm[Hg] 2019-04-30 18:10:54 130 mm[Hg] mm[Hg] Method: Sit DIASTOLIC mm[Hg] 2019-04-30 18:10:54 90 mm[Hg] mm[Hg] Method: Sit PULSE 2019-04-30 18:10:54 72 /min /min RESP RATE 2019-04-30 18:10:54 16 /min /min TEMP 2019-04-30 18:10:54 96.7 [degF] Procedures This patient has no known procedures. Results This patient has no known results.
--- OUTSIDE RECORDS SUMMARY | 2019-06-08 19:56 | XMS REPORT ---
:1965 Author Organization [facility] Care Team Providers Name Role Phone [...] Stefany kill 04-17 [place] deficit: pt 12:15: [id number] 00 Respiratory dyspnea Respirator Active Stefany present y 04-17 [place] 12:15: [id number] Endo/Vito anti-coagul Endo/Vito Active 2020-0 Stefany ation 3- [place] therapy 12:15: [id number] Integument knowledge/s Integument Active 2020-0 Stefany kill 04-17 [place] deficit: pt 12:15: [id number] 00 Nutrition nutritional Nutrition Active 2020-0 Stefany restriction 04-17 [place] s 12:15: [id number] Safety risk for Safety Active 2020-0 Stefany hospitaliza 04-17 [place] tion 12:15: [id number] 00 Safety structural Safety Active 2020-0 Stefany barriers - [place] present 12:15: [id number] 00 Safety safety Safety Active 2020-0 Stefany hazards - [place] present 12:15: [id number] Safety sanitation Safety Active 2020-0 Stefany hazards 04-17 [place] present 12:15: [id number] 00 Safety fall risk Safety Active 2020-0 Stefany factor 04-17 [place] present 12:15: [id number] 00 Medication knowledge/s Meds Active 2020-0 Stefany kill 04-17 [place] deficit: pt 12:15: [id number] 00 Diagnoses knowledge/s Diagnoses Active 2020-0 Stefany kill 04-17 [place] deficit: cg 12:15: [id number] 00 Musculoskel transfer Musculoske Active 2020-0 Stefany etal assistance letal 04-17 [place] required 12:15: [id number] 00 Musculoskel requires Musculoske Active 2020-0 Stefany etal human letal 04-17 [place] assist to 12:15: [id number] leave home 00 Nutrition knowledge/s Nutrition Active 2020-0 Della kill 3-06 Carrier RN deficit: pt 16:55: 00 Nutrition knowledge/s Nutrition Active 2020-0 Della kill 3-06 Carrier RN deficit: cg 16:55: 00 Integument skin Integument Active 2020-0 Della integrity 3-11 Carrier RN risk 16:20: 00 Cardio edema Cardiovasc Active 2020-0 Cherrise ular 3- [place] 10:30: [id number] 00 Endo/Vito insulin Endo/Vito Active 2020-0 Cherrise admn 3- Surjit dependence 10:30: [id number] 00 Endo/Vito glucose Endo/Vito Active 2020-0 Cherrise testing 3-13 [place] dependence 10:30: [id number] 00 Elimination urinary Eliminatio Active Cherrise urgency n 04-26 [place] 10:30: [id number] 00 Elimination urinary Eliminatio Active Cherrise frequency n 04-26 [place] 10:30: [id number] 00 Neuro impaired Neuro/Emot Active Cherrise decision-ma ion 04-26 [place] brian 10:30: [id number] 00 Neuro memory Neuro/Emot Active Cherrise deficit ion 04-26 [place] needing 10:30: [id number] supervision 00 Safety can be left Safety Active Della alone for 05-05 Carrier RN only short 16:30: periods 00 Cardio hypertensio Cardiovasc Active Cherrise n ular 05-08 [place] 09:30: [id number] 00 Allergies, Adverse Reactions, Alerts Allergy Allergy [...] mg tablet mg tablet 04-17 Abel PANCHAL metFORMIN metFORMIN Yes Nic Unknown [...] Nic Unknown Unknown 300 mg 300 mg 04-17 Abel PANCHAL capsule capsule G Vital Signs [...]
--- OUTSIDE RECORDS SUMMARY | 2019-06-08 19:56 | XMS REPORT ---
:1965 Author Organization [facility] Care Team Providers Name Role Phone [...] knowledge/s Pain Mgmt Active Stefany kill 04-17 [place] deficit: pt 12:15: [id number] 00 Respiratory dyspnea Respirator Active Stefany present y 04-17 [place] 12:15: [id number] 00 Endo/Vito anti-coagul Endo/Vito Active 2020-0 Stefany ation 3- [place] therapy 12:15: [id number] 00 Integument knowledge/s Integument Active 2020-0 Stefany kill 04-17 [place] deficit: pt 12:15: [id number] 00 Nutrition nutritional Nutrition Active 2020-0 Stefany restriction 04-17 [place] s 12:15: [id number] 00 Safety risk for Safety Active 2020-0 Stefany hospitaliza 04-17 [place] tion 12:15: [id number] 00 Safety structural Safety Active 2020-0 Stefany barriers - [place] present 12:15: [id number] 00 Safety safety Safety Active 2020-0 Stefany hazards - [place] present 12:15: [id number] 00 Safety sanitation Safety Active 2020-0 Stefany hazards 04-17 [place] present 12:15: [id number] 00 Safety fall risk Safety Active 2020-0 Stefany factor 04-17 [place] present 12:15: [id number] 00 Medication knowledge/s Meds Active 2020-0 Stefany kill 04-17 [place] deficit: pt 12:15: [id number] 00 Diagnoses knowledge/s Diagnoses Active 2020-0 Stefany kill 04-17 [place] deficit: cg 12:15: [id number] 00 Musculoskel transfer Musculoske Active 2020-0 Stefany etal assistance letal 04-17 [place] required 12:15: [id number] 00 Musculoskel requires Musculoske Active 2020-0 Stefany etal human letal 04-17 [place] assist to 12:15: [id number] leave home 00 Nutrition knowledge/s Nutrition Active 2020-0 Della kill 3-06 Carrier RN deficit: pt 16:55: 00 Nutrition knowledge/s Nutrition Active 2020-0 Della kill 3-06 Carrier RN deficit: cg 16:55: 00 Integument skin Integument Active 2020-0 Della integrity 3-11 Carrier RN risk 16:20: 00 Cardio edema Cardiovasc Active 2020-0 Cherrise ular 3- [place] 10:30: [id number] 00 Endo/Vito insulin Endo/Vito Active 2020-0 Cherrise admn 3- [place] dependence 10:30: [id number] 00 Endo/Vito glucose Endo/Vito Active 2020-0 Cherrise testing 3-13 [place] dependence 10:30: [id number] 00 Elimination urinary Eliminatio Active Cherrise urgency n 04-26 [place] 10:30: [id number] 00 Elimination urinary Eliminatio Active Cherrise frequency n 04-26 [place] 10:30: [id number] 00 Neuro impaired Neuro/Emot Active Cherrise decision-ma ion 04-26 [place] brian 10:30: [id number] 00 Neuro memory Neuro/Emot Active Cherrise deficit ion 04-26 [place] needing 10:30: [id number] supervision 00 Cardio hypertensio Cardiovasc Active Cherrise n ular 05-08 [place] 09:30: [id number] 00 Allergies, Adverse Reactions, Alerts Allergy Allergy [...]
--- OUTSIDE RECORDS SUMMARY | 2019-06-08 19:56 | XMS REPORT | Continuity of Care Document ---
:1965 External Reference #:[id number] Author Name Naresh Quezada M.D. (transmitted by agent of provider Tatum Markham) Address [address] [address] Care Team Providers Name Role Phone Matthew Murphy MD - Internal Care Team Information [employer] Associate [phone] Medicine Abel Bojorquez MD - Vascular Care Team Information [employer] Associate [phone] Surgery Problems Active Problems Provider Date Type [...] Fredy Duarte M.D. Onset: 07/26/2016 Atherosclerosis of inupiat arteries of left Naresh Quezada M.D. Onset: [...] 15gm Leonides Johnson, 04/25/2019 e areas of 335237-2.1Unit/GM-% concerns as Cream needed for rash Doxycycline take one capsule 42caps E11.621 Abel Lucero, 04/24/2019 Monohydrate twice a day. M.D. 100mg Capsules Xultophy start 20 units 15ml E11.65 Cristhian Kiser MD 11/08/2018 one daily, 100-3.6Unit-mg/ML increase by 2 Solution Pen-Inject units every 2 days until morning blood glucose is less than 150, mdd 50 Metformin HCL ER 1 tablet by 30tabs E11.65 Crishtian Kiser MD 11/08/2018 750mg mouth every day [...] Result H/L Range Note Laboratory test 04/09/2019 [facility] Point of 148 mg/dL High 70-[address] [place] [address] [phone] CBC Auto Diff 02/26/2019 [facility] White Blood 7.2 10^3/uL Normal 3.5-10.[address] [place] [address] [phone] Red Blood Count 3.97 10^6/uL Normal 3.70-4.87 [...] Blood Cells % 0.0 Comp Metabolic 02/26/2019 [facility] Sodium 142 mmol/L Normal 135-[address] [place] [address] [phone] Potassium 4.6 mmol/L Normal 3.5-5.0 Chloride 103 [...] Egfr 60.9 >60 2 Laboratory test 02/26/2019 [facility] Vancomycin Trough 25.8 g /mL 3 finding [address] [place] [address] [phone] C Reactive Protein 5.45 mg/L Normal <8.01 1 Private Detective: [id number] 2 Because ethnic data is not always [...] Other Infections Procedures Date Code Description Status 02/12/2019 20819 EKG, Interpretation Only Completed 02/12/2019 26280 Amputation Metatarsal W/Toe Completed 02/12/2019 56714 Amputation Metatarsal W/Toe Completed 02/10/2019 01369 EKG, Interpretation Only Completed 01/22/2019 17935 EKG Tracing & Interpretation Completed 03/25/2014 [id number] Diabetic Retinal Eye Exam Completed 03/25/2014 [id number] Mammogram Completed Medical Devices Description No Information Available Encounters Type Date Location Provider Dx Diagnosis Office Visit 05/02/2019 [facility] Naresh Quezada, I70.245 [facility] inupiat 7:30a [facility] arteries of left leg w ulceration oth prt foot Z68.43 Body mass index (BMI) 50.0-59.9, adult E66.01 Morbid (severe) obesity due to excess calories Office Visit 04/16/2019 12:28p [facility] E11.621 Type 2 For Infectious Bacon, ELECTROPHYSIOLOGY TECHNOLOGIST diabetes Diseases mellitus with foot ulcer 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 chronic ulcer oth Hospitalists prt left foot w unsp severity E11.621 Type 2 diabetes mellitus with foot ulcer I10 Essential (primary) hypertension I48.0 Paroxysmal atrial fibrillation Office Visit 04/12/2019 [facility] L97.529 Non-pressure 10:23a cedric Chamberlain M.D. 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 chronic ulcer oth Diseases prt left foot w unsp severity E11.621 Type 2 diabetes mellitus with foot ulcer Office Visit 02/26/2019 [facility] Cesar Dickson M86.672 Other chronic 4:20p For Infectious Apoorva Mabry osteomyelitis, left Diseases ankle and foot E11.69 Type 2 diabetes mellitus with other specified complication Office Visit 02/20/2019 [facility] M86.9 Osteomyelitis, 8:50a cedric Chamberlain MD unspecified Hospitalists I38 Endocarditis, valve unspecified E11.40 Type 2 diabetes mellitus with diabetic neuropathy, unsp I48.0 Paroxysmal atrial fibrillation I10 Essential (primary) hypertension G47.33 Obstructive sleep apnea (adult) (pediatric) Office Visit 02/20/2019 [facility] E11.69 Type 2 diabetes 10:36a For Infectious Bacon, ELECTROPHYSIOLOGY TECHNOLOGIST mellitus with Diseases other specified complication M86.672 Other chronic osteomyelitis, left ankle and foot Z89.422 Acquired absence of other left toe(s) Office 02/19/2019 [facility] M86.672 Other chronic Visit 8:49a cedric Chamberlain MD osteomyelitis, left Hospitalists ankle and foot E11.621 Type 2 diabetes mellitus with foot ulcer E11.40 Type 2 diabetes mellitus with diabetic neuropathy, unsp F41.9 Anxiety disorder, unspecified F32.9 Major depressive disorder, single episode, unspecified I48.0 Paroxysmal atrial fibrillation [facility] E11.69 Type 2 diabetes 10:35a For Infectious Bacon, ELECTROPHYSIOLOGY TECHNOLOGIST mellitus with Diseases other specified complication M86.672 Other chronic osteomyelitis, left ankle and foot Z89.422 Acquired absence of other left toe(s) Office 02/18/2019 [facility] M86.672 Other chronic Visit 8:49a cedric Chamberlain PA osteomyelitis, Hospitalists left ankle and foot E11.621 Type 2 diabetes mellitus with foot ulcer E11.40 Type 2 diabetes mellitus with diabetic neuropathy, unsp I48.0 Paroxysmal atrial fibrillation F41.9 Anxiety disorder, unspecified F32.9 Major depressive disorder, single episode, unspecified Office 02/17/2019 [facility] M86.672 Other chronic Visit 8:48a cedric Chamberlain PA osteomyelitis, Hospitalists left ankle and foot E11.621 Type 2 diabetes mellitus with foot ulcer E11.40 Type 2 diabetes mellitus with diabetic neuropathy, unsp I48.0 Paroxysmal atrial fibrillation F41.9 Anxiety disorder, unspecified F32.9 Major depressive disorder, single episode, unspecified Office Visit 02/16/2019 [facility] Samaria Schulz E11.69 Type 2 diabetes 10:33a For Infectious Bacon, ELECTROPHYSIOLOGY TECHNOLOGIST mellitus with Diseases other specified complication M86.672 Other chronic osteomyelitis, left ankle and foot E11.621 Type 2 diabetes mellitus with foot ulcer 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-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 Z89.422 Acquired absence of other left toe(s) Office 02/16/2019 [facility] M86.672 Other chronic Visit 8:48a cedric Chamberlain PA osteomyelitis, Hospitalists left ankle and foot E11.621 Type 2 diabetes mellitus with foot ulcer E11.40 Type 2 diabetes mellitus with diabetic neuropathy, unsp I48.0 Paroxysmal atrial fibrillation F41.9 Anxiety disorder, unspecified F32.9 Major depressive disorder, single episode, unspecified Office 02/15/2019 [facility] M86.672 Other chronic Visit 8:46a cedric Chamberlain PA osteomyelitis, Hospitalists left ankle and foot E11.621 Type 2 diabetes mellitus with foot ulcer E11.40 Type 2 diabetes mellitus with diabetic neuropathy, unsp I48.91 Unspecified atrial fibrillation F41.9 Anxiety disorder, unspecified F32.9 Major depressive disorder, single episode, unspecified Office 02/14/2019 [facility] M86.672 Other chronic Visit 8:42a cedric Chamberlain PA osteomyelitis, Hospitalists left ankle and foot E11.621 Type 2 diabetes mellitus with foot ulcer E11.40 Type 2 diabetes mellitus with diabetic neuropathy, unsp I48.91 Unspecified atrial fibrillation F41.9 Anxiety disorder, unspecified F32.9 Major depressive disorder, single episode, unspecified Office Visit 02/13/2019 [facility] Alex M86.672 Other chronic 8:42a cedric Chamberlain PA osteomyelitis, left Hospitalists ankle and foot E11.621 Type 2 diabetes mellitus with foot ulcer F41.9 Anxiety disorder, unspecified F32.9 Major depressive disorder, single episode, unspecified I48.91 Unspecified atrial fibrillation G47.33 Obstructive sleep apnea (adult) (pediatric) Office Visit 02/12/2019 [facility] M86.672 Other chronic 8:41a cedric Chamberlain PA osteomyelitis, left Hospitalists ankle and foot E11.621 Type 2 diabetes mellitus with foot ulcer F41.9 Anxiety disorder, unspecified F32.9 Major depressive disorder, single episode, unspecified I48.91 Unspecified atrial fibrillation G47.33 Obstructive sleep apnea (adult) (pediatric) Office Visit 02/12/2019 [facility] Samaria cShulz E11.69 Type 2 diabetes 10:31a For Infectious Bacon, ELECTROPHYSIOLOGY TECHNOLOGIST mellitus with Diseases other specified complication M86.672 Other chronic osteomyelitis, left ankle and foot E11.621 Type 2 diabetes mellitus with foot ulcer 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 Alex M86.672 Other chronic 8:41a cedric Chamberlain PA osteomyelitis, left Hospitalists ankle and foot E11.621 Type 2 diabetes mellitus with foot ulcer F41.9 Anxiety disorder, unspecified F32.9 Major depressive disorder, single episode, unspecified I48.91 Unspecified atrial fibrillation Office Visit 02/10/2019 [facility] Alex M86.672 Other chronic 8:40a cedric Chamberlain PA osteomyelitis, left Hospitalists ankle and foot E11.621 Type 2 diabetes mellitus with foot ulcer N18.9 Chronic kidney disease, unspecified I48.0 Paroxysmal atrial fibrillation I10 Essential (primary) hypertension G47.33 Obstructive sleep apnea (adult) (pediatric) Office Visit 02/10/2019 [facility] E11.40 Type 2 diabetes 12:33p [facility] [place] mellitus with [place] diabetic neuropathy, unsp M86.172 Other acute osteomyelitis, left ankle and foot Office Visit 01/22/2019 2:20p [facility] Chris Santos I48.0 Paroxysmal atrial Of Roll Examiner Morin, DO fibrillation FAC I63.9 Cerebral infarction, unspecified Z95.2 Presence of prosthetic heart valve E78.5 Hyperlipidemia, unspecified E11.8 Type 2 diabetes mellitus with unspecified complications Assessments Date Code Description Provider 05/07/2019 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 severity 05/07/2019 I70.245 Atherosclerosis of inupiat arteries Samaria Bacon NP of left leg with ulceration of other part of foot 05/07/2019 E11.40 Type 2 diabetes mellitus with Samaria Bacon NP diabetic neuropathy, unspecified 05/03/2019 L97.529 Non-pressure chronic ulcer of other Abel Lucero M.D. part of left foot with unspecified severity 05/02/2019 I70.245 Atherosclerosis of inupiat arteries Naresh Quezada M.D. of left leg [...] I48.91 Unspecified atrial fibrillation Mounika Tafoya M.D. 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 Endocarditis, valve unspecified Mary Alacla MD 02/20/2019 M86.672 Other chronic osteomyelitis, left [...] Type 2 diabetes mellitus with other Samaria Schulz Bacon, JOHN specified complication 02/16/2019 E11.621 Type 2 diabetes mellitus with foot Dee Dee Ordonez, PA ulcer 02/16/2019 M86.672 Other chronic osteomyelitis, left Samaria Chapmanmorrodenisekita Bacon ELECTROPHYSIOLOGY TECHNOLOGIST ankle and foot 02/16/2019 E11.40 Type 2 diabetes mellitus with Dee Dee Ordonez, PA diabetic neuropathy, unspecified 02/16/2019 E11.621 Type 2 diabetes mellitus with foot Samaria Zeus Bacon NP ulcer 02/16/2019 I48.0 Paroxysmal atrial fibrillation Dee Deefreedom [place], [place] 02/16/2019 L97.529 Non-pressure chronic ulcer of other Samaria Chapmanhenrry Bacon NP part of left foot with unspecified severity 02/16/2019 F41.9 Anxiety disorder, unspecified Dee Dee Ordonez, PA 02/16/2019 Z89.422 Acquired absence of other left Samaria Zeus aBcon NP toe(s) 02/16/2019 F32.9 Major depressive disorder, [...] 2 diabetes mellitus with foot Dee Dee [place], [place] ulcer 02/14/2019 E11.40 Type 2 diabetes mellitus with DAT [place] diabetic neuropathy, unspecified 02/14/2019 I48.91 Unspecified atrial [...] M86.172 Other acute osteomyelitis, left Chris Morin, [facility] ankle and foot 02/12/2019 F41.9 [...] 10:00 am - Samaria Bacon NP at [facility]ious Xmnogsqu05/02/2020 11:15 am - Abel Lucero M.D. at [facility]/19/2019 10:00 am - Cristhian Kiser MD at [facility]05/07/2019 - Samaria Bacon, NPL97.529 Non-pressure chronic ulcer of other part of left foot with unspecified severityFollow up:4-6 weeks (ok for telemedicine)I70.245 Atherosclerosis of inupiat arteries of left leg with ulceration of other part of footE11.40 Type 2 diabetes mellitus with diabetic neuropathy, unspecified Functional Status Description No Information Available Mental Status Description No Information Available Referrals Refer to Dr Reason for Referral Status Appt Abel Bojorquez MD lady with dysvascular ray amputation left Sent foot. please eval [address] [place] [id number] [phone] Lexii Forrester MD Referral to the [facility] for Healthy Sent Living to explore weight loss options [address] [place] [address] [phone] Naresh Quezada MD Left foot non healing wound, eval blood flow Closed and need for further intervention [address] [place] [address] [phone]
[2019-06-08] MEDS ORDERED: Ondansetron ODT TAB* 4 MG PO ONE (20:34)
[2019-06-08 21:29] VITALS: BP 128/64
== END 2019-06-08 21:28 | disposition home or self-care (01) ==
LOC: ED 18:55
DX: R11.2 Nausea with vomiting, unspecified (principal); R10.32 Left lower quadrant pain; I10 Essential (primary) hypertension; F32.9 Major depressive disorder, single episode, unspecified; E11.9 Type 2 diabetes mellitus without complications; Z79.899 Other long term (current) drug therapy; Z87.891 Personal history of nicotine dependence; Z79.01 Long term (current) use of anticoagulants; Z79.4 Long term (current) use of insulin; Z95.4 Presence of other heart-valve replacement
CPT/HCPCS: 36415; 80053; 83690; 85025; 86140; 96361; 96374; 99283; A9270-GY; J2405

== ENCOUNTER 2019-06-11 13:05 | Inpatient (IN) ==
[2019-06-11] MEDS ORDERED: Ondansetron 4 mg VIAL 2 MG/ML 2 ml VIAL IV ONE (13:39)
[2019-06-11] MEDS ORDERED: NS 0.9% 1000 ml BAG 2,000 ML IV ONE (13:39)
[2019-06-11 14:39] LABS: ABS Lymphocytes 1.4 10^3/ul (1.0-4.8); ABS Monocytes 1.4 10^3/ul (0-0.8); Eosinophil % 0.2 %; Hematocrit 45 % (35-47); Hemoglobin 15.1 g/dL (12.0-16.0); Lymphocyte % 12.1 %; Mean Corpuscular HGB Conc 33 g/dL (31-36); Mean Corpuscular Hemoglobin 27 pg (27-31); Mean Corpuscular Volume 79 fL (80-97); Mean Platelet Volume 8.8 fL (7.4-10.4); Nucleated Red Blood Cells % 0.1; Platelet Count 557 10^3/uL (150-450); Red Blood Count 5.69 10^6 /uL (3.70-4.87); Red Cell Distribution Width 15 % (10-15); White Blood Count 11.8 10^3/uL (3.5-10.8)
[2019-06-11 14:53] LABS: Albumin/Globulin Ratio 0.9 (1-3); BUN/Creatinine Ratio 22.1 (8-20); C Reactive Protein 8.89 mg/L (<8.01); Calcium 9.2 mg/dL (8.6-10.3); EGFR African American 22.6 (>60); EGFR Non-African American 18.7 (>60); Globulin 4.4 g/dL (2-4); Potassium 4.3 mmol/L (3.5-5.0); Total Bilirubin 0.5 mg/dL (0.2-1.0); Total Protein 8.4 g/dL (6.4-8.9)
[2019-06-11] MEDS ORDERED: Ondansetron 4 mg VIAL 2 MG/ML 2 ml VIAL IV PRN (16:17)
[2019-06-11] MEDS ORDERED: Dextrose 50% Syringe 50 ml 25 GM/50 ML SYRINGE IV PUSH PRN (16:35)
[2019-06-11] MEDS ORDERED: NS 0.9% 1000 ml BAG 1,000 ML IV SCH (16:45)
[2019-06-11] MEDS: Ammonium Lactate 12% 1 APPLIC TUBE TOPICAL SCH (20:58)
[2019-06-12 06:17] LABS: ABS Basophils 0.1 10^3/ul (0-0.2); ABS Eosinophils 0.1 10^3/ul (0-0.6); ABS Lymphocytes 1.6 10^3/ul (1.0-4.8); Eosinophil % 1.9 %; Hematocrit 40 % (35-47); Hemoglobin 12.2 g/dL (12.0-16.0); Lymphocyte % 22.8 %; Mean Corpuscular HGB Conc 31 g/dL (31-36); Mean Corpuscular Hemoglobin 26 pg (27-31); Mean Corpuscular Volume 84 fL (80-97); Mean Platelet Volume 8.3 fL (7.4-10.4); Nucleated Red Blood Cells % 0.1; Platelet Count 349 10^3/uL (150-450); Red Blood Count 4.74 10^6 /uL (3.70-4.87); Red Cell Distribution Width 16 % (10-15); White Blood Count 6.8 10^3/uL (3.5-10.8)
[2019-06-12 06:21] LABS: BUN/Creatinine Ratio 24.8 (8-20); Calcium 7.7 mg/dL (8.6-10.3); EGFR African American 23.9 (>60); EGFR Non-African American 19.8 (>60); Potassium 3.8 mmol/L (3.5-5.0)
[2019-06-12] MEDS: Rivaroxaban 15 mg TAB (*) PO SCH (08:32)
[2019-06-12] MEDS: Ammonium Lactate 12% 1 APPLIC TUBE TOPICAL SCH ×2 (08:33→20:44)
[2019-06-12] MEDS: Insulin GLARGINE 100 un/ml (*) 10 ml VIAL SUBCUT SCH (08:33)
[2019-06-12] MEDS: Insulin LISPRO 100 units/ml(*) SUBCUT SCH ×3 (08:46→17:31)
[2019-06-12 09:29] LABS: Urine Appearance Cloudy; Urine Bilirubin 1+ (Negative); Urine Blood Negative (Negative); Urine Color Amber; Urine Glucose Negative (Negative); Urine Ketones Negative (Negative); Urine Nitrite Negative (Negative); Urine Protein Negative (Negative); Urine Specific Gravity 1.023 (1.010-1.030); Urine Urobilinogen Negative (Negative)
[2019-06-12 09:34] LABS: Urine Bacteria Absent (Absent); Urine Red Blood Cell Trace(0-2/hpf) (Absent); Urine Squamous Epithelial Cell Present (Absent); Urine White Blood Cell 2+(11-20/hpf) (Absent)
[2019-06-12] MEDS ORDERED: Lactated Ringers 1000 ml BAG 1,000 ML IV SCH (10:00)
[2019-06-12] MEDS: Lactated Ringers 1000 ml BAG 1,000 ML IV SCH (11:21)
[2019-06-12] MEDS: Nystatin TOP POWDER 15 GM BTL TOPICAL SCH (20:44)
[2019-06-13] MEDS: Lactated Ringers 1000 ml BAG 1,000 ML IV SCH ×2 (00:07→14:22)
[2019-06-13 06:26] LABS: ABS Eosinophils 0.1 10^3/ul (0-0.6); ABS Lymphocytes 2.1 10^3/ul (1.0-4.8); ABS Monocytes 0.8 10^3/ul (0-0.8); Eosinophil % 1.9 %; Hematocrit 35 % (35-47); Hemoglobin 11.4 g/dL (12.0-16.0); Lymphocyte % 32.6 %; Mean Corpuscular HGB Conc 32 g/dL (31-36); Mean Corpuscular Hemoglobin 26 pg (27-31); Mean Corpuscular Volume 80 fL (80-97); Mean Platelet Volume 8.5 fL (7.4-10.4); Nucleated Red Blood Cells % 0.1; Platelet Count 313 10^3/uL (150-450); Red Blood Count 4.41 10^6 /uL (3.70-4.87); Red Cell Distribution Width 15 % (10-15); White Blood Count 6.5 10^3/uL (3.5-10.8)
[2019-06-13 06:35] LABS: BUN/Creatinine Ratio 32.3 (8-20); EGFR African American 33.1 (>60); EGFR Non-African American 27.3 (>60); Potassium 3.5 mmol/L (3.5-5.0)
[2019-06-13] MEDS ORDERED: Potassium Chlor 20 meq TAB.ER PO ONE (07:30)
[2019-06-13 08:02] LABS: Magnesium 1.9 mg/dL (1.9-2.7)
[2019-06-13] MEDS: Insulin LISPRO 100 units/ml(*) SUBCUT SCH ×3 (08:05→17:44)
[2019-06-13] MEDS: Insulin GLARGINE 100 un/ml (*) 10 ml VIAL SUBCUT SCH (08:52)
[2019-06-13] MEDS: Rivaroxaban 15 mg TAB (*) PO SCH (08:54)
[2019-06-13] MEDS: Ammonium Lactate 12% 1 APPLIC TUBE TOPICAL SCH ×2 (09:32→22:01)
[2019-06-13] MEDS: Nystatin TOP POWDER 15 GM BTL TOPICAL SCH ×2 (09:32→22:01)
[2019-06-13 19:13] LABS: Urine Creatinine Concentration 124.34 mg/dL
[2019-06-14] MEDS: Lactated Ringers 1000 ml BAG 1,000 ML IV SCH (03:35)
[2019-06-14] MEDS: Insulin GLARGINE 100 un/ml (*) 10 ml VIAL SUBCUT SCH (08:51)
[2019-06-14] MEDS: Insulin LISPRO 100 units/ml(*) SUBCUT SCH ×2 (08:51→12:40)
[2019-06-14] MEDS: Nystatin TOP POWDER 15 GM BTL TOPICAL SCH (08:52)
[2019-06-14 09:26] LABS: BUN/Creatinine Ratio 32.2 (8-20); Calcium 8.4 mg/dL (8.6-10.3); EGFR African American 45.3 (>60); EGFR Non-African American 37.5 (>60); Potassium 3.9 mmol/L (3.5-5.0)
[2019-06-14] MEDS: Ammonium Lactate 12% 1 APPLIC TUBE TOPICAL SCH (09:26)
[2019-06-14] MEDS: Rivaroxaban 15 mg TAB (*) PO SCH (09:28)
[2019-06-14 11:26] VITALS: BP 129/67
== END 2019-06-14 13:00 | disposition home or self-care (01) | DRG 392 ==
LOC: ED 13:05 → MED 16:15 → INTOOBSV 16:15 → UNDOADMIN 16:15 → MED 18:11 → OBSVTOIN 06-12 10:10 → SSU 06-12 23:41
PROVIDERS: ADMIT Internal Medicine; ATTEND Hospitalist

== ENCOUNTER 2022-02-10 20:24 | Inpatient (IN) ==
[2022-02-10 21:02] LABS: ABS Basophils 0.1 10^3/ul (0-0.2); ABS Eosinophils 0.1 10^3/ul (0-0.6); ABS Lymphocytes 1.2 10^3/ul (1.0-4.8); ABS Monocytes 0.5 10^3/ul (0-0.8); Eosinophil % 1.9 %; Hematocrit 44 % (35-47); Hemoglobin 14.2 g/dL (12.0-16.0); Lymphocyte % 17.5 %; Mean Corpuscular HGB Conc 33 g/dL (31-36); Mean Corpuscular Hemoglobin 27 pg (27-31); Mean Corpuscular Volume 83 fL (80-97); Mean Platelet Volume 8.7 fL (7.4-10.4); Platelet Count 290 10^3/uL (150-450); Red Blood Count 5.29 10^6 /uL (3.70-4.87); Red Cell Distribution Width 15 % (10-15); White Blood Count 6.9 10^3/uL (3.5-10.8)
[2022-02-10] MEDS ORDERED: Iodixanol (CONTRAST) 320 MG/ML 100 ML SDV IV ONE (21:04)
[2022-02-10 21:09] LABS: Activated Partial Thrombo Time 28.5 seconds (26.0-38.0); INR 0.94 (0.88-1.18)
[2022-02-10 21:54] LABS: Albumin 3.5 g/dL (3.2-5.2); Calcium 9.4 mg/dL (8.6-10.3); Globulin 3.6 g/dL (2-4); HDL Cholesterol 45.7 mg/dL; Total Bilirubin 0.3 mg/dL (0.2-1.0); Total Protein 7.1 g/dL (6.4-8.9); eGFR CKD-EPI 54.8 (>60)
[2022-02-10] MEDS ORDERED: levETIRAcetam IV 1,500 MG in NS 0.9% 100 ml BAG 100 ML IVPB SCH (22:00)
[2022-02-10 22:27] LABS: Potassium 3.8 mmol/L (3.5-5.0)
[2022-02-11 01:38] LABS: Urine Appearance Cloudy; Urine Bilirubin Negative (Negative); Urine Blood 1+ (Negative); Urine Color Yellow; Urine Glucose Negative (Negative); Urine Ketones Negative (Negative); Urine Nitrite Positive (Negative); Urine Protein 1+(30 mg/dL) (Negative); Urine Specific Gravity 1.054 (1.002-1.030); Urine Urobilinogen Negative (Negative)
[2022-02-11] MEDS ORDERED: Dextrose 50% Syringe 50 ml 25 GM/50 ML SYRINGE IV PUSH PRN (02:14)
[2022-02-11 02:17] LABS: Urine Bacteria 1+ (Absent); Urine Red Blood Cell 2+(6-10/hpf) (Absent); Urine Squamous Epithelial Cell Present (Absent); Urine White Blood Cell 2+(11-20/hpf) (Absent)
[2022-02-11] MEDS: Enoxaparin 40 MG/0.4 ML SYR SUBCUT SCH (08:59)
[2022-02-11 09:56] LABS: ABS Basophils 0.1 10^3/ul (0-0.2); ABS Eosinophils 0.1 10^3/ul (0-0.6); ABS Lymphocytes 1.8 10^3/ul (1.0-4.8); ABS Monocytes 0.7 10^3/ul (0-0.8); ABS Neutrophils 5.4 10^3/ul (1.5-7.7); Eosinophil % 1.7 %; Hematocrit 39 % (35-47); Hemoglobin 12.4 g/dL (12.0-16.0); Lymphocyte % 22.4 %; Mean Corpuscular HGB Conc 32 g/dL (31-36); Mean Corpuscular Hemoglobin 27 pg (27-31); Mean Corpuscular Volume 84 fL (80-97); Mean Platelet Volume 8.7 fL (7.4-10.4); Platelet Count 273 10^3/uL (150-450); Red Blood Count 4.63 10^6 /uL (3.70-4.87); Red Cell Distribution Width 15 % (10-15); White Blood Count 8.1 10^3/uL (3.5-10.8)
[2022-02-11 10:14] LABS: Calcium 8.7 mg/dL (8.6-10.3); Magnesium 1.6 mg/dL (1.9-2.7); eGFR CKD-EPI 47.4 (>60)
[2022-02-11] MEDS: cefTRIAXone 1 gm/50 mL D5W 1 GM/50 ML BAG IV SCH (11:29)
[2022-02-11] MEDS: Nystatin TOP POWDER 15 GM BTL TOPICAL SCH ×2 (11:29→20:05)
[2022-02-11] MEDS ORDERED: Magnesium Sulfate IV 3 GM in NS 0.9% 100 ml BAG 100 ML IVPB ONE (13:42)
[2022-02-12] MEDS: Enoxaparin 40 MG/0.4 ML SYR SUBCUT SCH (05:34)
[2022-02-12 07:11] LABS: Calcium 8.5 mg/dL (8.6-10.3); Magnesium 2.2 mg/dL (1.9-2.7); Potassium 4.3 mmol/L (3.5-5.0); eGFR CKD-EPI 52.1 (>60)
[2022-02-12] MEDS: cefTRIAXone 1 gm/50 mL D5W 1 GM/50 ML BAG IV SCH (10:24)
[2022-02-12] MEDS: Nystatin TOP POWDER 15 GM BTL TOPICAL SCH (10:27)
[2022-02-12 14:52] VITALS: BP 144/54
== END 2022-02-12 15:11 | disposition home or self-care (01) | DRG 101 ==
LOC: ED 20:24 → SUATTDRO 23:33 → EDHOLD 23:33 → MEDTELE 02-11 01:50
PROVIDERS: ADMIT Student in an Organized Health Care Education/Training Program; ATTEND Internal Medicine

== ENCOUNTER 2023-04-28 18:26 | Inpatient (IN) ==
[2023-04-28 20:18] LABS: ABS Lymphocytes 0.4 10^3/uL (1.0-4.8); ABS Monocytes 0.7 10^3/uL (0.0-0.9); ABS Neutrophils 13.3 10^3/uL (1.5-7.6); ABS Nucleated RBC 0.01 10^3/ul; Eosinophil % 0.3 %; Hematocrit 34.7 % (35-45); Hemoglobin 11.5 g/dL (11.5-14.3); Lymphocyte % 2.9 %; Mean Corpuscular Hgb Conc 33.1 g/dL (31-36); Mean Corpuscular Volume 81.5 fL (80-97); Mean Platelet Volume 8.4 fL (7.5-11.2); Nucleated Red Blood Cells % 0.1 %/100WBC (0.0-0.8); Platelet Count 368 10^3/uL (150-450); Red Blood Count 4.26 10^6/uL (3.63-4.92); Red Cell Distribution Width 15.3 % (12-17); White Blood Count 14.5 10^3/uL (3.8-11.8)
[2023-04-28 20:39] LABS: Activated Partial Thrombo Time 30.8 seconds (26.0-38.0); INR 1.15 (0.83-1.13)
[2023-04-28 21:00] LABS: Albumin 3.2 g/dL (3.2-5.2); Albumin/Globulin Ratio 0.7 (1-3); C Reactive Protein 204.85 mg/L (<8.01); Calcium 8.3 mg/dL (8.6-10.3); Creatinine, Serum 1.43 mg/dL (0.51-0.95); Globulin 4.3 g/dL (2-4); Potassium 4.6 mmol/L (3.5-5.0); Total Bilirubin 0.6 mg/dL (0.2-1.0); Total Protein 7.5 g/dL (6.4-8.9); eGFR CKD-EPI 42.8 (>60)
[2023-04-28] MEDS: Piperacillin/Tazobac 3.375 BAG 3.375 GM/100 ML BAG IV ONE (21:11)
[2023-04-28] MEDS: Vancomycin 1,250 MG in NS 0.9% 250 ml 250 ML IVPB ONE (21:24)
[2023-04-28 22:57] LABS: High Sensitivity Troponin 1 Hr 43 pg/mL (<15)
[2023-04-28] MEDS ORDERED: Dextrose 50% Syringe 50 ml 25 GM/50 ML SYRINGE IV PUSH PRN (23:14)
[2023-04-29] MEDS ORDERED: Vancomycin per Pharmacy 1 EA NOTE FOLLOW UP SCH (01:00)
[2023-04-29] MEDS: Cefepime 2 GM in Dextrose 2 GM/50 ML BAG IV SCH ×2 (01:25→15:06)
[2023-04-29] MEDS: Heparin 5000 UNITS/ML 1 mL VIAL SUBCUT SCH (02:05)
[2023-04-29] MEDS ORDERED: metroNIDAZOLE IV 500 MG/100ML 500 MG/100 ML BAG IVPB SCH (07:00)
[2023-04-29 08:36] LABS: Urine Appearance Turbid; Urine Bilirubin Negative (Negative); Urine Blood Negative (Negative); Urine Color Yellow; Urine Glucose Negative (Negative); Urine Ketones Trace (Negative); Urine Nitrite 2+ (Negative); Urine Protein 2+ (>=100 mg/dL) (Negative); Urine Specific Gravity 1.031 (1.002-1.030); Urine Urobilinogen Negative (Negative); Urine pH 5.5 (5.0-8.0)
[2023-04-29 08:54] LABS: Urine Bacteria 2+ /HPF (Absent); Urine Red Blood Cell 1+(3-5/hpf) /HPF (0-Trace); Urine Squamous Epithelial Cell Present /HPF (Absent); Urine Transitional Epithelial Present /HPF (Absent); Urine White Blood Cell 1+(6-10/hpf) /HPF (0-Trace)
[2023-04-29] MEDS: metroNIDAZOLE IV 500 MG/100ML 500 MG/100 ML BAG IVPB SCH ×2 (09:20→18:17)
[2023-04-29 09:25] LABS: Calcium 7.8 mg/dL (8.6-10.3); Creatinine, Serum 1.35 mg/dL (0.51-0.95); Potassium 4.4 mmol/L (3.5-5.0); eGFR CKD-EPI 45.8 (>60)
[2023-04-29] MEDS ORDERED: Sulfur Hexaflouride MICROSPHR 25 MG VIAL ONE (09:58)
[2023-04-29] MEDS: Vancomycin 1,750 MG in NS 0.9% 500 ml BAG 500 ML IVPB SCH (12:40)
[2023-04-29] MEDS ORDERED: Polyethylene Glycol 3350 17 GM PACKET PO PRN (14:52)
[2023-04-29] MEDS ORDERED: Senna TAB 8.6 mg TAB PO PRN (14:52)
[2023-04-29] MEDS ORDERED: Magnesium Hydroxide LIQ 30 ML UDC PO PRN (14:52)
[2023-04-29] MEDS: Insulin GLARGINE 100 un/ml 10 ml VIAL SUBCUT SCH (20:56)
[2023-04-29] MEDS: Magnesium Hydroxide LIQ 30 ML UDC PO SCH (21:50)
[2023-04-30 06:52] LABS: Hematocrit 28.7 % (35-45); Hemoglobin 9.4 g/dL (11.5-14.3); Mean Corpuscular Hemoglobin 26.7 pg (27-33); Mean Corpuscular Hgb Conc 32.7 g/dL (31-36); Mean Corpuscular Volume 81.7 fL (80-97); Platelet Count 301 10^3/uL (150-450); Red Blood Count 3.52 10^6/uL (3.63-4.92); Red Cell Distribution Width 15.1 % (12-17); White Blood Count 9.4 10^3/uL (3.8-11.8)
[2023-04-30 07:44] LABS: Calcium 7.7 mg/dL (8.6-10.3); Creatinine, Serum 1.44 mg/dL (0.51-0.95); Potassium 4.4 mmol/L (3.5-5.0); eGFR CKD-EPI 42.4 (>60)
[2023-04-30] MEDS ORDERED: Ondansetron 4 mg VIAL 2 MG/ML 2 ml VIAL IV PRN (16:05)
[2023-04-30] MEDS ORDERED: Metoclopramide 5 MG/ML VIAL (10 mg) IV PRN (16:05)
[2023-04-30] MEDS ORDERED: fentaNYL 100 mcg/2 ml 50 MCG/ML VIAL IV PRN (16:05)
[2023-04-30] MEDS ORDERED: Desflurane 240 ML INH ONE (16:12)
[2023-04-30] MEDS ORDERED: Propofol 10 MG/ML 20 ML BTL ONE (16:12)
[2023-04-30] MEDS ORDERED: Succinylcholine 200 mg VIAL 20 mg/ml 10 ml VIAL (200 mg) ONE (16:12)
[2023-04-30] MEDS ORDERED: fentaNYL 250 mcg/5 ml 50 MCG/ML 5 ml VIAL (250 MCG) ONE (16:13)
[2023-04-30] MEDS ORDERED: Midazolam 2 mg/2 ml VIAL 1 mg/ml 2 ml VIAL (2 mg) ONE (16:13)
[2023-04-30] MEDS ORDERED: Rocuronium 50 mg VIAL 10 mg/ml 5 ml VIAL (50 mg) ONE (16:17)
[2023-04-30] MEDS ORDERED: fentaNYL 100 mcg/2 ml 50 MCG/ML VIAL ONE (17:02)
[2023-04-30] MEDS: Lactated Ringers 1000 ml BAG 1,000 ML IV SCH (22:16)
[2023-04-30] MEDS: Buffered Lidocaine 1% SYRIN 1 ml INTRADERM ONE (23:31)
[2023-04-30] MEDS: Scopolamine 1 mg/72hr PATCH TRANSDERM ONE (23:31)
[2023-05-01] MEDS: Vancomycin 1,750 MG in NS 0.9% 500 ml BAG 500 ML IVPB SCH (01:45)
[2023-05-01 05:49] LABS: ABS Lymphocytes 0.5 10^3/uL (1.0-4.8); ABS Monocytes 0.6 10^3/uL (0.0-0.9); ABS Neutrophils 7.3 10^3/uL (1.5-7.6); ABS Nucleated RBC 0.01 10^3/ul; Eosinophil % 0.1 %; Hematocrit 29.8 % (35-45); Hemoglobin 9.8 g/dL (11.5-14.3); Lymphocyte % 6.1 %; Mean Corpuscular Hemoglobin 26.8 pg (27-33); Mean Corpuscular Hgb Conc 32.7 g/dL (31-36); Mean Corpuscular Volume 81.8 fL (80-97); Nucleated Red Blood Cells % 0.1 %/100WBC (0.0-0.8); Platelet Count 319 10^3/uL (150-450); Red Blood Count 3.64 10^6/uL (3.63-4.92); Red Cell Distribution Width 15.2 % (12-17); White Blood Count 8.4 10^3/uL (3.8-11.8)
[2023-05-01 06:06] LABS: Calcium 7.7 mg/dL (8.6-10.3); Creatinine, Serum 1.16 mg/dL (0.51-0.95); Potassium 4.9 mmol/L (3.5-5.0)
[2023-05-01 12:28] LABS: Creatinine, Serum 1.14 mg/dL (0.51-0.95); eGFR CKD-EPI 56.1 (>60)
[2023-05-01] MEDS ORDERED: Zosyn per Pharmacy NOTE FOLLOW UP SCH (19:00)
[2023-05-02] MEDS: ZOSYN 3.375 GM Q8H per EXTENDED INFUSION IV SCH (01:23)
[2023-05-02] MEDS: Vancomycin Trough Check NOTE FOLLOW UP ONE (03:41)
[2023-05-02] MEDS: Vancomycin 1,750 MG in NS 0.9% 500 ml BAG 500 ML IVPB SCH (05:41)
[2023-05-02 07:07] LABS: Creatinine, Serum 1.44 mg/dL (0.51-0.95); Magnesium 2.3 mg/dL (1.9-2.7); Potassium 4.5 mmol/L (3.5-5.0); eGFR CKD-EPI 42.4 (>60)
[2023-05-02 09:28] LABS: Hematocrit 32.1 % (35-45); Hemoglobin 10.4 g/dL (11.5-14.3); Mean Corpuscular Hemoglobin 26.4 pg (27-33); Mean Corpuscular Hgb Conc 32.3 g/dL (31-36); Mean Corpuscular Volume 81.7 fL (80-97); Mean Platelet Volume 8.5 fL (7.5-11.2); Platelet Count 457 10^3/uL (150-450); Red Blood Count 3.93 10^6/uL (3.63-4.92); White Blood Count 7.8 10^3/uL (3.8-11.8)
[2023-05-02 12:14] LABS: C Reactive Protein 100.87 mg/L (<8.01)
[2023-05-03] MEDS ORDERED: Vancomycin 1,750 MG in NS 0.9% 500 ml BAG 500 ML IVPB SCH (06:00)
[2023-05-03 06:29] LABS: ABS Basophils 0.1 10^3/uL (0.0-0.1); ABS Eosinophils 0.2 10^3/uL (0.0-0.5); ABS Monocytes 0.6 10^3/uL (0.0-0.9); ABS Neutrophils 4.2 10^3/uL (1.5-7.6); Eosinophil % 3.5 %; Hematocrit 30.7 % (35-45); Hemoglobin 9.8 g/dL (11.5-14.3); Lymphocyte % 16.4 %; Mean Corpuscular Hemoglobin 26.2 pg (27-33); Mean Corpuscular Volume 81.9 fL (80-97); Platelet Count 390 10^3/uL (150-450); Red Blood Count 3.75 10^6/uL (3.63-4.92); Red Cell Distribution Width 15.1 % (12-17); White Blood Count 6.1 10^3/uL (3.8-11.8)
[2023-05-03 06:50] LABS: Calcium 8.1 mg/dL (8.6-10.3); Creatinine, Serum 1.36 mg/dL (0.51-0.95); Magnesium 2.3 mg/dL (1.9-2.7); Potassium 4.5 mmol/L (3.5-5.0); eGFR CKD-EPI 45.4 (>60)
[2023-05-04] MEDS ORDERED: Vancomycin Trough Check NOTE FOLLOW UP ONE (05:30)
[2023-05-04 08:14] LABS: Hematocrit 29.9 % (35-45); Hemoglobin 9.7 g/dL (11.5-14.3); Mean Corpuscular Hemoglobin 26.5 pg (27-33); Mean Corpuscular Hgb Conc 32.5 g/dL (31-36); Mean Corpuscular Volume 81.4 fL (80-97); Mean Platelet Volume 7.9 fL (7.5-11.2); Platelet Count 388 10^3/uL (150-450); Red Blood Count 3.67 10^6/uL (3.63-4.92); Red Cell Distribution Width 15.3 % (12-17); White Blood Count 6.4 10^3/uL (3.8-11.8)
[2023-05-04 08:32] LABS: Calcium 8.1 mg/dL (8.6-10.3); Creatinine, Serum 1.2 mg/dL (0.51-0.95); Potassium 4.5 mmol/L (3.5-5.0); eGFR CKD-EPI 52.8 (>60)
[2023-05-04 09:43] LABS: ABS Basophils 0.1 10^3/uL (0.0-0.1); ABS Eosinophils 0.2 10^3/uL (0.0-0.5); ABS Lymphocytes 1.1 10^3/uL (1.0-4.8); ABS Monocytes 0.6 10^3/uL (0.0-0.9); ABS Neutrophils 4.4 10^3/uL (1.5-7.6); Eosinophil % 2.5 %; Lymphocyte % 17.7 %
[2023-05-04] MEDS: ZOSYN 3.375 GM Q8H per EXTENDED INFUSION IV SCH (11:12)
[2023-05-04] MEDS: Midazolam 10 mg/10 ml VIAL 1 mg/ml 10 ml VIAL (10 mg) IV SLOW PU ONE (12:45)
[2023-05-04] MEDS: fentaNYL 100 mcg/2 ml 50 MCG/ML VIAL IV SLOW PU ONE (12:45)
[2023-05-04] MEDS ORDERED: Naloxone 0.4 mg VIAL 0.4 mg/ml 1 ml VIAL IV PUSH PRN (12:48)
[2023-05-04] MEDS ORDERED: Flumazenil 0.5 mg/5 ml 0.1 MG/ML 5 ml VIAL IV PRN (12:48)
[2023-05-04] MEDS ORDERED: Lidocaine 1% VIAL 10 MG/ML 30 ML VIAL ONE (14:42)
[2023-05-04] MEDS ORDERED: Heparin 2 UNITS/ML IVPREMIX 3,000 UNIT/1,500 ML BAG IV ONE (14:42)
[2023-05-04] MEDS ORDERED: Iodixanol 320 (CONTRAST) 100 ML SDV ONE ×2 (14:42→15:32)
[2023-05-04] MEDS ORDERED: fentaNYL 100 mcg/2 ml 50 MCG/ML VIAL ONE (15:11)
[2023-05-04] MEDS ORDERED: Heparin 1,000 UNIT/ML 10 ml (10,000 UNITS) CATHLAB/DIALYSIS ONE (15:11)
[2023-05-04] MEDS ORDERED: Midazolam 5 mg/5 ml VIAL 1 mg/ml 5 ml VIAL (5 mg) ONE (15:11)
[2023-05-06] MEDS: Heparin 5000 UNITS/ML 1 mL VIAL SUBCUT SCH (08:40)
[2023-05-08 05:29] LABS: Hematocrit 30.5 % (35-45); Mean Corpuscular Hemoglobin 26.7 pg (27-33); Mean Corpuscular Hgb Conc 32.7 g/dL (31-36); Mean Corpuscular Volume 81.7 fL (80-97); Mean Platelet Volume 7.8 fL (7.5-11.2); Platelet Count 322 10^3/uL (150-450); Red Blood Count 3.73 10^6/uL (3.63-4.92); Red Cell Distribution Width 15.7 % (12-17); White Blood Count 6.7 10^3/uL (3.8-11.8)
[2023-05-08 05:58] LABS: Calcium 8.3 mg/dL (8.6-10.3); Creatinine, Serum 1.35 mg/dL (0.51-0.95); Potassium 4.6 mmol/L (3.5-5.0); eGFR CKD-EPI 45.8 (>60)
[2023-05-08] MEDS: Nystatin TOP POWDER 15 GM BTL TOPICAL SCH (12:08)
[2023-05-09 07:00] LABS: Hematocrit 32.7 % (35-45); Hemoglobin 10.5 g/dL (11.5-14.3); Mean Corpuscular Hemoglobin 26.5 pg (27-33); Mean Corpuscular Hgb Conc 32.1 g/dL (31-36); Mean Corpuscular Volume 82.5 fL (80-97); Mean Platelet Volume 8.1 fL (7.5-11.2); Platelet Count 305 10^3/uL (150-450); Red Blood Count 3.96 10^6/uL (3.63-4.92); White Blood Count 6.5 10^3/uL (3.8-11.8)
[2023-05-09 07:08] LABS: Calcium 8.2 mg/dL (8.6-10.3); Creatinine, Serum 1.29 mg/dL (0.51-0.95); Magnesium 1.9 mg/dL (1.9-2.7); Potassium 4.5 mmol/L (3.5-5.0); eGFR CKD-EPI 48.4 (>60)
[2023-05-09] MEDS ORDERED: Iodixanol 320 (CONTRAST) 100 ML SDV ONE (07:48)
[2023-05-09] MEDS ORDERED: Lidocaine 1% VIAL 10 MG/ML 30 ML VIAL ONE (07:48)
[2023-05-09] MEDS ORDERED: Heparin 2 UNITS/ML IVPREMIX 3,000 UNIT/1,500 ML BAG IV ONE (07:48)
[2023-05-09] MEDS ORDERED: Midazolam 5 mg/5 ml VIAL 1 mg/ml 5 ml VIAL (5 mg) ONE (08:01)
[2023-05-09] MEDS ORDERED: Heparin 1,000 UNIT/ML 10 ml (10,000 UNITS) CATHLAB/DIALYSIS ONE ×2 (08:01→09:26)
[2023-05-09] MEDS ORDERED: fentaNYL 100 mcg/2 ml 50 MCG/ML VIAL ONE (08:01)
[2023-05-09] MEDS ORDERED: VERAPAMIL 2.5 MG/ML 2 ML VIAL ** 5 mg/2 ml ONE (08:09)
[2023-05-09] MEDS ORDERED: nitroGLYCERIN DRIP 25,000 MCG/250 ML BTL ONE (08:10)
[2023-05-09] MEDS: Insulin GLARGINE 100 un/ml 10 ml VIAL SUBCUT SCH (20:28)
[2023-05-10] MEDS: ZOSYN 3.375 GM Q8H per EXTENDED INFUSION IV SCH (00:14)
[2023-05-10 06:42] LABS: ABS Basophils 0.1 10^3/uL (0.0-0.1); ABS Eosinophils 0.2 10^3/uL (0.0-0.5); ABS Monocytes 0.6 10^3/uL (0.0-0.9); ABS Nucleated RBC 0.01 10^3/ul; Eosinophil % 3.2 %; Hematocrit 31.6 % (35-45); Hemoglobin 10.2 g/dL (11.5-14.3); Lymphocyte % 14.7 %; Mean Corpuscular Hemoglobin 26.4 pg (27-33); Mean Corpuscular Hgb Conc 32.2 g/dL (31-36); Mean Platelet Volume 8.5 fL (7.5-11.2); Nucleated Red Blood Cells % 0.1 %/100WBC (0.0-0.8); Platelet Count 308 10^3/uL (150-450); Red Blood Count 3.85 10^6/uL (3.63-4.92); Red Cell Distribution Width 16.3 % (12-17)
[2023-05-10 06:47] LABS: INR 1.05 (0.83-1.13)
[2023-05-10 07:02] LABS: Creatinine, Serum 1.23 mg/dL (0.51-0.95); Magnesium 1.8 mg/dL (1.9-2.7); Potassium 4.6 mmol/L (3.5-5.0); eGFR CKD-EPI 51.3 (>60)
[2023-05-10] MEDS: Lactated Ringers 1000 ml BAG 1,000 ML IV ONE (08:10)
[2023-05-10] MEDS ORDERED: Bupivacaine 0.5% SDV PF 30ML VIAL ONE (08:36)
[2023-05-10] MEDS ORDERED: hydrALAZINE 20 mg/ml 1 ML Vial IV IV SLOW PU PRN (09:42)
[2023-05-10] MEDS: Magnesium Sulfate 2 gm BAG 2 GM/50 ML BAG IVPB ONE (12:12)
[2023-05-11 06:30] LABS: INR 1.06 (0.83-1.13)
[2023-05-11 06:42] LABS: Hematocrit 34.4 % (35-45); Mean Corpuscular Hemoglobin 26.4 pg (27-33); Mean Corpuscular Hgb Conc 32.1 g/dL (31-36); Mean Corpuscular Volume 82.3 fL (80-97); Mean Platelet Volume 8.6 fL (7.5-11.2); Platelet Count 325 10^3/uL (150-450); Red Blood Count 4.18 10^6/uL (3.63-4.92); Red Cell Distribution Width 16.4 % (12-17); White Blood Count 7.7 10^3/uL (3.8-11.8)
[2023-05-11 07:37] LABS: Calcium 8.8 mg/dL (8.6-10.3); Creatinine, Serum 1.38 mg/dL (0.51-0.95); Magnesium 2.1 mg/dL (1.9-2.7); Potassium 4.7 mmol/L (3.5-5.0); eGFR CKD-EPI 44.6 (>60)
[2023-05-11] MEDS: Lactated Ringers 1000 ml BAG 1,000 ML IV ONE (09:45)
[2023-05-11] MEDS ORDERED: Midazolam 2 mg/2 ml VIAL 1 mg/ml 2 ml VIAL (2 mg) ONE (10:22)
[2023-05-11] MEDS ORDERED: fentaNYL 100 mcg/2 ml 50 MCG/ML VIAL ONE ×2 (10:29→14:36)
[2023-05-11] MEDS ORDERED: Naloxone 0.4 mg VIAL 0.4 mg/ml 1 ml VIAL IV PRN (10:38)
[2023-05-11] MEDS ORDERED: Ondansetron 4 mg VIAL 2 MG/ML 2 ml VIAL IV PRN (10:38)
[2023-05-11] MEDS ORDERED: Dexamethasone IV 4 MG/ML VIAL 1 ml VIAL ONE (10:41)
[2023-05-11] MEDS ORDERED: Propofol 10 MG/ML 20 ML BTL ONE (10:41)
[2023-05-11] MEDS ORDERED: Ondansetron 4 mg VIAL 2 MG/ML 2 ml VIAL ONE (10:41)
[2023-05-11] MEDS ORDERED: Lidocaine 2% PF 5 ML VIAL ONE (10:41)
[2023-05-11] MEDS ORDERED: Piperacillin/Tazobac 3.375 BAG 3.375 GM/100 ML BAG IV ONE (10:47)
[2023-05-11] MEDS ORDERED: Bupivacaine 0.5% SDV PF 30ML VIAL ONE (11:06)
[2023-05-11] MEDS ORDERED: Rocuronium 50 mg VIAL 10 mg/ml 5 ml VIAL (50 mg) ONE (11:21)
[2023-05-11] MEDS ORDERED: KETAMINE HCL 10 MG/ML 20 ml VIAL (200 MG) ONE (11:21)
[2023-05-11] MEDS ORDERED: Glycopyrrolate IV 0.2 MG/ML 1 ML VIAL ONE (11:56)
[2023-05-11] MEDS ORDERED: Phenylephrine IV 10 MG/ML 1 ml VIAL ONE (12:14)
[2023-05-11] MEDS: fentaNYL 100 mcg/2 ml 50 MCG/ML VIAL IV PRN (14:38)
[2023-05-11] MEDS: Lidocaine 1% MPF 5 ML VIAL INJ ONE (16:32)
[2023-05-11] MEDS: NS 0.9% 1000 ml BAG 1,000 ML IV SCH (16:32)
[2023-05-11] MEDS: Lactated Ringers 1000 ml BAG 1,000 ML IV SCH (16:56)
[2023-05-11 17:04] LABS: ABS Lymphocytes 0.5 10^3/uL (1.0-4.8); ABS Monocytes 0.1 10^3/uL (0.0-0.9); ABS Neutrophils 6.3 10^3/uL (1.5-7.6); ABS Nucleated RBC 0.01 10^3/ul; Eosinophil % 0.5 %; Hematocrit 34.2 % (35-45); Lymphocyte % 7.1 %; Mean Corpuscular Hemoglobin 26.6 pg (27-33); Mean Corpuscular Hgb Conc 32.2 g/dL (31-36); Mean Corpuscular Volume 82.7 fL (80-97); Mean Platelet Volume 8.3 fL (7.5-11.2); Nucleated Red Blood Cells % 0.1 %/100WBC (0.0-0.8); Platelet Count 262 10^3/uL (150-450); Red Blood Count 4.13 10^6/uL (3.63-4.92); Red Cell Distribution Width 16.7 % (12-17)
[2023-05-11 17:25] LABS: Activated Partial Thrombo Time 35.1 seconds (26.0-38.0); INR 1.03 (0.83-1.13)
[2023-05-11 17:45] LABS: Creatinine, Serum 1.29 mg/dL (0.51-0.95); eGFR CKD-EPI 48.4 (>60)
[2023-05-12 05:21] LABS: Hematocrit 30.7 % (35-45); Hemoglobin 9.8 g/dL (11.5-14.3); Mean Corpuscular Hemoglobin 26.4 pg (27-33); Mean Corpuscular Hgb Conc 31.9 g/dL (31-36); Mean Corpuscular Volume 82.9 fL (80-97); Mean Platelet Volume 8.7 fL (7.5-11.2); Platelet Count 246 10^3/uL (150-450); Red Cell Distribution Width 16.4 % (12-17); White Blood Count 7.9 10^3/uL (3.8-11.8)
[2023-05-12 05:35] LABS: Calcium 7.9 mg/dL (8.6-10.3); Creatinine, Serum 1.46 mg/dL (0.51-0.95); Magnesium 2.1 mg/dL (1.9-2.7); Potassium 4.8 mmol/L (3.5-5.0); eGFR CKD-EPI 41.7 (>60)
[2023-05-12] MEDS: Heparin 5000 UNITS/ML 1 mL VIAL SUBCUT SCH (09:42)
[2023-05-12] MEDS: Insulin GLARGINE 100 un/ml 10 ml VIAL SUBCUT SCH (23:02)
[2023-05-13 05:51] LABS: ABS Basophils 0.1 10^3/uL (0.0-0.1); ABS Eosinophils 0.2 10^3/uL (0.0-0.5); ABS Lymphocytes 1.2 10^3/uL (1.0-4.8); ABS Monocytes 0.6 10^3/uL (0.0-0.9); ABS Neutrophils 4.8 10^3/uL (1.5-7.6); Eosinophil % 2.3 %; Hematocrit 32.1 % (35-45); Hemoglobin 10.1 g/dL (11.5-14.3); Lymphocyte % 17.2 %; Mean Corpuscular Hgb Conc 31.4 g/dL (31-36); Mean Corpuscular Volume 82.9 fL (80-97); Mean Platelet Volume 8.3 fL (7.5-11.2); Platelet Count 256 10^3/uL (150-450); Red Blood Count 3.88 10^6/uL (3.63-4.92); Red Cell Distribution Width 17.1 % (12-17); White Blood Count 6.7 10^3/uL (3.8-11.8)
[2023-05-13 06:10] LABS: Calcium 8.2 mg/dL (8.6-10.3); Creatinine, Serum 1.52 mg/dL (0.51-0.95); Magnesium 2.1 mg/dL (1.9-2.7); Potassium 4.8 mmol/L (3.5-5.0); eGFR CKD-EPI 39.8 (>60)
[2023-05-14 06:13] LABS: ABS Basophils 0.1 10^3/uL (0.0-0.1); ABS Eosinophils 0.2 10^3/uL (0.0-0.5); ABS Lymphocytes 0.9 10^3/uL (1.0-4.8); ABS Monocytes 0.5 10^3/uL (0.0-0.9); ABS Neutrophils 3.7 10^3/uL (1.5-7.6); Eosinophil % 2.9 %; Hematocrit 30.8 % (35-45); Lymphocyte % 17.6 %; Mean Corpuscular Hemoglobin 26.8 pg (27-33); Mean Corpuscular Hgb Conc 32.6 g/dL (31-36); Mean Corpuscular Volume 82.2 fL (80-97); Mean Platelet Volume 8.7 fL (7.5-11.2); Nucleated Red Blood Cells % 0.1 %/100WBC (0.0-0.8); Platelet Count 241 10^3/uL (150-450); Red Blood Count 3.74 10^6/uL (3.63-4.92); Red Cell Distribution Width 16.2 % (12-17); White Blood Count 5.3 10^3/uL (3.8-11.8)
[2023-05-14 06:32] LABS: Calcium 8.3 mg/dL (8.6-10.3); Creatinine, Serum 1.42 mg/dL (0.51-0.95); Magnesium 1.9 mg/dL (1.9-2.7); Potassium 4.3 mmol/L (3.5-5.0); eGFR CKD-EPI 43.1 (>60)
[2023-05-15 05:39] LABS: ABS Basophils 0.1 10^3/uL (0.0-0.1); ABS Eosinophils 0.2 10^3/uL (0.0-0.5); ABS Lymphocytes 1.1 10^3/uL (1.0-4.8); ABS Monocytes 0.5 10^3/uL (0.0-0.9); ABS Neutrophils 3.1 10^3/uL (1.5-7.6); ABS Nucleated RBC 0.01 10^3/ul; Eosinophil % 3.3 %; Hematocrit 32.4 % (35-45); Hemoglobin 10.5 g/dL (11.5-14.3); Lymphocyte % 22.4 %; Mean Corpuscular Hemoglobin 26.7 pg (27-33); Mean Corpuscular Hgb Conc 32.6 g/dL (31-36); Mean Platelet Volume 8.6 fL (7.5-11.2); Nucleated Red Blood Cells % 0.2 %/100WBC (0.0-0.8); Platelet Count 235 10^3/uL (150-450); Red Blood Count 3.95 10^6/uL (3.63-4.92); Red Cell Distribution Width 16.8 % (12-17); White Blood Count 4.9 10^3/uL (3.8-11.8)
[2023-05-15 06:24] LABS: Calcium 8.3 mg/dL (8.6-10.3); Creatinine, Serum 1.42 mg/dL (0.51-0.95); Potassium 4.2 mmol/L (3.5-5.0); eGFR CKD-EPI 43.1 (>60)
[2023-05-16] MEDS: Amoxicillin/Clavul 875/125 TAB (Augmentin 875 tab) PO SCH (21:58)
[2023-05-17 09:42] VITALS: BP 140/67
== END 2023-05-17 11:55 | DRG 617 ==
LOC: EDHOLD 18:26 → ED 18:26 → SUATTDRO 22:42 → MEDTELE 04-29 11:13 → SUATTDRO 04-29 14:16 → SSU 04-30 18:36
PROVIDERS: ADMIT Internal Medicine; ATTEND Hospitalist

== ENCOUNTER 2023-06-16 19:16 | Observation (INO) ==
[2023-06-16 20:27] LABS: ABS Basophils 0.1 10^3/uL (0.0-0.1); ABS Eosinophils 0.1 10^3/uL (0.0-0.5); ABS Lymphocytes 1.2 10^3/uL (1.0-4.8); ABS Monocytes 0.5 10^3/uL (0.0-0.9); ABS Neutrophils 3.6 10^3/uL (1.5-7.6); ABS Nucleated RBC 0.01 10^3/ul; Hematocrit 38.5 % (35-45); Hemoglobin 12.4 g/dL (11.5-14.3); Lymphocyte % 21.5 %; Mean Corpuscular Hemoglobin 26.2 pg (27-33); Mean Corpuscular Hgb Conc 32.2 g/dL (31-36); Mean Corpuscular Volume 81.5 fL (80-97); Nucleated Red Blood Cells % 0.2 %/100WBC (0.0-0.8); Platelet Count 195 10^3/uL (150-450); Red Blood Count 4.72 10^6/uL (3.63-4.92); Red Cell Distribution Width 16.4 % (12-17); White Blood Count 5.4 10^3/uL (3.8-11.8)
[2023-06-16 20:36] LABS: Activated Partial Thrombo Time 42.4 seconds (26.0-38.0); INR 2.13 (0.83-1.13)
[2023-06-16 20:49] LABS: Albumin 3.2 g/dL (3.2-5.2); Albumin/Globulin Ratio 1.1 (1-3); Calcium 8.6 mg/dL (8.6-10.3); Creatinine, Serum 1.25 mg/dL (0.51-0.95); Direct Bilirubin 0.1 mg/dL (0.03-0.18); HDL Cholesterol 34.5 mg/dL; Indirect Bilirubin 0.5 mg/dL (0.3-1.0); Potassium 4.3 mmol/L (3.5-5.0); Total Bilirubin 0.6 mg/dL (0.2-1.0); Total Protein 6.2 g/dL (6.4-8.9); eGFR CKD-EPI 50.3 (>60)
[2023-06-16 21:16] LABS: Urine Appearance Clear; Urine Bilirubin Negative (Negative); Urine Blood Trace (Negative); Urine Color Light-Yellow; Urine Glucose Negative (Negative); Urine Ketones Negative (Negative); Urine Nitrite Negative (Negative); Urine Protein 2+ (>=100 mg/dL) (Negative); Urine Specific Gravity 1.021 (1.002-1.030); Urine Urobilinogen Negative (Negative); Urine pH 6.5 (5.0-8.0)
[2023-06-16 21:18] LABS: Urine Bacteria Absent /HPF (Absent); Urine Red Blood Cell Trace(0-2/hpf) /HPF (0-Trace); Urine Squamous Epithelial Cell Present /HPF (Absent); Urine White Blood Cell 3+(>20/hpf) /HPF (0-Trace)
[2023-06-16] MEDS ORDERED: LORazepam 2 MG/ML 1 mL Syringe IV ONE (22:28)
[2023-06-16] MEDS: LORazepam 2 mg VIAL 1 ml IV PUSH ONE (22:54)
[2023-06-17] MEDS ORDERED: Dextrose 50% Syringe 50 ml 25 GM/50 ML SYRINGE IV PUSH PRN (01:00)
[2023-06-17] MEDS: Nystatin TOP POWDER 15 GM BTL TOPICAL SCH (03:18)
[2023-06-17] MEDS: Insulin GLARGINE 100 un/ml 10 ml VIAL SUBCUT ONE (03:27)
[2023-06-17] MEDS: Permethrin 1% LOTION 59 ML BTL TOPICAL SCH (03:30)
[2023-06-17 04:39] LABS: Anion Gap 10 mmol/L (2-16); Blood Urea Nitrogen 22 mg/dL (6-24); CO2 Carbon Dioxide 25 mmol/L (22-32); Calcium 8.7 mg/dL (8.6-10.3); Chloride 106 mmol/L (101-111); Creatinine, Serum 1.18 mg/dL (0.51-0.95); Glucose 149 mg/dL (70-100); Magnesium 1.8 mg/dL (1.9-2.7); Sodium 141 mmol/L (135-145); eGFR CKD-EPI 53.9 (>60)
[2023-06-17 04:50] LABS: ABS Eosinophils 0.1 10^3/uL (0.0-0.5); ABS Lymphocytes 1.5 10^3/uL (1.0-4.8); ABS Monocytes 0.5 10^3/uL (0.0-0.9); ABS Nucleated RBC 0.01 10^3/ul; Eosinophil % 2.1 %; Hematocrit 38.1 % (35-45); Hemoglobin 12.1 g/dL (11.5-14.3); Mean Corpuscular Hemoglobin 26.6 pg (27-33); Mean Corpuscular Hgb Conc 31.9 g/dL (31-36); Mean Corpuscular Volume 83.5 fL (80-97); Mean Platelet Volume 8.9 fL (7.5-11.2); Nucleated Red Blood Cells % 0.2 %/100WBC (0.0-0.8); Platelet Count 162 10^3/uL (150-450); Red Blood Count 4.56 10^6/uL (3.63-4.92); Red Cell Distribution Width 16.7 % (12-17); White Blood Count 5.1 10^3/uL (3.8-11.8)
[2023-06-17] MEDS: Magnesium Sulfate 2 gm BAG 2 GM/50 ML BAG IVPB ONE (05:26)
[2023-06-17 05:36] LABS: Potassium Redraw 4.1 mmol/L (3.5-5.0)
[2023-06-17] MEDS: Iodixanol (CONTRAST) 320 MG/ML 100 ML SDV IV ONE (08:35)
[2023-06-17] MEDS: Insulin GLARGINE 100 un/ml 10 ml VIAL SUBCUT SCH (20:35)
[2023-06-18] MEDS: Aspirin EC 81 mg TAB.EC (enteric coated) PO SCH (14:36)
[2023-06-19 11:19] VITALS: BP 148/91
== END 2023-06-19 13:15 ==
LOC: EDHOLD 19:16 → ED 19:16 → SUATTDRO 22:45 → MEDTELE 06-17 01:24
PROVIDERS: ADMIT Internal Medicine; ATTEND Hospitalist